=== PATIENT | female | born 1945 | race Caucasian/White ===

== ENCOUNTER 2022-08-09 13:46 | Outpatient (OUT) | payer MEDICARE, OTHER, SELFPAY ==
--- NOTE | 2022-08-09 10:00 | CA_ITS ---
Patient: PERCY SAMUELS Exam Date: 08/09/2022 : 1945 Gender:F Ordering : DEN HAAS Admission #: [id number] Family : DR AURY ORDONEZ . Order #: [id number] CLICK HERE TO VIEW EXAM ECHOCARDIOGRAM REPORT PROCEDURE: CA ECHO DOPPLER COMPLETE INDICATIONS: AV STENOSIS, S/P TAVR; 23 mm Yasmeen 3 (2019), H/O Atrial fibrillation COMPARISON: None. DESCRIPTION: COMPLETE ECHOCARDIOGRAM Real-time transthoracic echocardiography with 2D, M-mode, spectral and color flow Doppler performed. QUALITY: Lumason contrast was administered due to suboptimal imaging for left ventricular opacification to improve delineation of endocardial boarders. LEFT VENTRICLE: Normal chamber size. Normal left ventricular wall thickness. LV EF: Global left ventricular systolic function is hyperdynamic; visually estimated ejection fraction 65 to 70%. DIASTOLIC: Unable to assess diastolic function. ATRIAL SEPTUM: Inadequately seen. LEFT ATRIUM: Severe dilatation. RIGHT ATRIUM: Moderate dilatation. RIGHT VENTRICLE: Mild dilatation. Normal right ventricular systolic function. TRICUSPID VALVE: Normal mobility and thickness. No stenosis with trivial regurgitation. Unable to calculate right sided pressures due to lack of measurable regurgitation. MITRAL VALVE: Trivial mitral regurgitation. Severe posterior mitral annular calcification. AORTIC VALVE: Transcatheter aortic valve replacement appears well seated with abnormally high Doppler flows. (Mean 35 mmHg DVI 0.27) Trivial perivalvular insufficiency. AORTIC ROOT: Normal diameter and appearance. PULMONIC VALVE: Not well visualized. No stenosis. Trivial regurgitation. PERICARDIUM: No evidence of pericardial effusion. IVC: Collapses with inspirations. IVC is normal in size. CONCLUSION: 1. Global left ventricular systolic function is hyperdynamic; visually estimated ejection fraction is 65 to 70% 2. Biatrial enlargement 3. The right ventricle appears dilated with normal systolic function 4. Transcatheter aortic valve is poorly seen; Doppler interrogation reveals abnormally high velocities. Trivial perivalvular regurgitation. Adult Echocardiography Procedure Report Left Ventricle LVEDD (3.7 - 5.6 cm): 5.68 cm LVIVS thickness (0.6 - 1.2 cm): 0.90 cm LVOT Max Gradient: 3.91 mm[Hg], 3.91 mm[Hg] Peak Velocity (LVOT): 0.99 m/s, 0.99 m/s Left Atrium Mitral Valve MV E to A Ratio: 0.71 Right Ventricle RV Internal Diastolic Dimension: 4.18 cm Aorta Aortic Valve Peak Velocity(Antegrade Flow): 3.60 m/s, 3.62 m/s, 3.60 m/s, 3.62 m/s Peak Gradient(Antegrade Flow): 51.82 mm[Hg], 51.82 mm[Hg], 52.39 mm[Hg], 52.39 mm[Hg] Mean Velocity(Antegrade Flow): 2.82 m/s, 2.73 m/s Mean Gradient(Antegrade Flow): 34.82 mm[Hg], 32.86 mm[Hg] Velocity Time Integral: 91.71 cm, 93.78 cm Tricuspid Valve Pulmonic Valve Peak Gradient: 6.47 mm[Hg], 6.47 mm[Hg] Right Atrium Dictated by: Anne Pate M.D. on 08/10/2022 at 18:20 Approved by: Anne Pate M.D. on 08/10/2022 at 18:27
== END 2022-08-09 13:47 | disposition home or self-care (01) ==
LOC: CARD 13:46
PROVIDERS: PCP Family Medicine; Visit Provider Internal Medicine Cardiovascular Disease
DX: I08.0 Rheumatic disorders of both mitral and aortic valves (principal); R93.1 Abnormal findings on diagnostic imaging of heart and coronary circulation
CPT/HCPCS: 93306; C8929

== ENCOUNTER 2022-10-11 10:45 | Inpatient (IN) | payer MEDICARE, OTHER, SELFPAY ==
[2022-10-11] VITALS (32 sets, daily range): BP systolic 100–147; BP diastolic 50–85; PULSE 63–115; RESP 10–21; TEMP 36.9–37.3; O2SAT 83–98; BMI 47.8; BMI 45.8
--- NOTE | 2022-10-11 | CONS_ITS ---
CONSULTATION DATE: ??10/11/2022 REASON FOR CONSULTATION:?? Anemia. HISTORY OF PRESENT ILLNESS:? Patient is a 77-year-old female with multiple medical problems including atrial fibrillation on Xarelto daily, diabetes mellitus, hypertension, hypothyroidism, morbid obesity, history of aortic valve replacement, as well as arthritis and chronic back problems.? She presented to the ER today with increased shortness of breath and sinus congestion for the past week, as well as increased fatigue.? Workup in the emergency room revealed a hemoglobin of 5.3 with hematocrit of 15.9.? Platelet count was normal at 252,000.? She also has chronic renal insufficiency, but her BUN and creatinine were more elevated at 131 and 2.5.? Glucose was also elevated at 316.? Patient was admitted and she is being transfused.? She denies any change in bowel habits.? Does report several weeks ago was eating lots of blueberries and just noticed darker blueberries in her stool.? When she stopped eating the blueberries that resolved.? She denies any melena, hematochezia or bright red blood per rectum.? Has had no abdominal pain, no nausea or vomiting.? She denies any aspirin or nonsteroidal anti-inflammatory drug use.? Has been on no [id number] medications.? No recent steroid use.? She denies any history of ulcer disease or significant gastroesophageal reflux disease.? She has not had a previous EGD.? Does report a colonoscopy in the remote past, approximately 25 years ago.? FAMILY HISTORY:? She has no family history of GI malignancy or inflammatory bowel disease.? SOCIAL HISTORY:? Patient does drink occasional alcohol.? Denies any history of tobacco use.? ALLERGIES:? She has allergies to sulfa. MEDICATIONS:? Home medications include Pacerone, Elavil, atorvastatin, carvedilol, Lasix, Glucotrol, levothyroxine, lisinopril, metformin, multivitamin, potassium chloride, sertraline, spironolactone, as well as insulin. PAST SURGICAL HISTORY:? She had an aortic valve replacement, ankle surgery, knee replacement surgery, as well as previous back surgery. REVIEW OF SYSTEMS:? Ten system review of systems is negative for recent weight loss or weight gain.? She does report increased fatigue, shortness of breath.? No headaches, seizures or tremors.? No earache or tinnitus.? No sinus congestion.? No sore throat or hoarseness.? No chest pain, palpitations or syncope.? No chronic cough.? She has had shortness of breath.? No hemoptysis.? No abdominal pain, nausea or vomiting. ?No diarrhea, constipation, decreased caliber of the stool.? No melena, hematochezia or bright red blood per rectum.? No dysuria, frequency, urgency or hematuria.? No headaches, seizures or tremors.? No easy bruising or bleeding.? No heat or cold intolerance.? No polydipsia, polyphagia or polyuria. PHYSICAL EXAM:? VITAL SIGNS:? Patient?s BMI is 45.8.? Blood pressure is 135/85.? Pulse is 82 and regular.? Respiratory rate is 18.? She is afebrile.? O2 saturation is 92% on room air. GENERAL:? In general, she is an obese female, currently in no acute distress.? Resting comfortably in her bed. HEENT:? Normocephalic, atraumatic.? Sclerae anicteric.? Conjunctiva are pale.? Oral mucosa is moist, without lesions. NECK:? Supple.? LUNGS:? Clear bilaterally.??? CARDIAC EXAM:? Reveals an ejection murmur. ABDOMEN:? Obese, soft.? It is non-tender, non-distended.? There are no masses, hepatosplenomegaly or hernias.? SKIN:? Warm and dry without lesions, rashes or ulcers. NEURO EXAM:? Non-focal.? Non-lateralizing.? EXTREMITIES:? Reveal bilateral edema, which the patient reports is chronic. ASSESSMENT:? A 77-year-old female with multiple medical problems, now with anemia.? No obvious source of GI bleeding. PLAN:? I do recommend endoscopy during her stay for further evaluation, while the Xarelto is being held.? Certainly, if her hemoglobin comes up appropriate tomorrow, we can begin bowel prep tomorrow and plan on likely EGD and colonoscopy under anesthesia on Sunday.? This was all explained to the patient in detail.? Informed consent was obtained. [facility]
--- NOTE | 2022-10-11 10:48 | ED_ITS ---
HPI - General Adult General Chief complaint: Shortness of Breath/Dyspnea Stated complaint: SHORTNESS OF BREATH Time Seen by Provider: 10/11/22 10:48 History of Present Illness HPI narrative: Patient brought into the emergency department complaining of shortness of breath. Family states patient has been sick a week ago with sinus congestion and a nonproductive cough. She was noted to be increasingly weak during the weekend and this morning she developed chest tightness and felt very short of breath prior to coming to the emergency department. She called EMS. She denies any fever, or chills. She denies any vomiting, or diarrhea. She denies any abdominal pain. Patient was on and request for atrial fibrillation. She had it changed to xarelto last month. Patient states she was eating a lot of blueberries 10 days ago and she noted her stool to be darker. She denies any hematochezia. She states her stool is now normal color. Related Data Home Medications Medication Instructions Recorded Confirmed amitriptyline 25 mg tablet 25 mg PO QPM 10/11/22 10/11/22 aspirin 81 mg chewable tablet 81 mg PO DAILY 10/11/22 10/11/22 (Joel Chewable Low Dose Aspirin) atorvastatin 40 mg tablet 40 mg PO QPM 10/11/22 10/11/22 levothyroxine 125 mcg tablet 120 mcg PO DAILY 10/11/22 10/11/22 multivitamin 1 tab PO DAILY 10/11/22 10/11/22 potassium chloride 10 mEq 10 meq PO DAILY 10/11/22 10/11/22 tablet,extended release(part/cryst) (Klor-Con M) rivaroxaban 20 mg tablet (Xarelto) 20 mg PO DAILY 10/11/22 10/11/22 sertraline 50 mg tablet 50 mg PO DAILY 10/11/22 10/11/22 spironolactone 25 mg tablet 25 mg PO DAILY 10/11/22 10/11/22 Allergies Allergy/AdvReac Type Severity Reaction Status Date / Time Sulfa (Sulfonamide Allergy Intermediate Rash Verified 10/11/22 10:50 Antibiotics) Review of Systems ROS Status of ROS 10 or more systems reviewed and unremarkable except as noted in history and below [facility] Medical History (Updated 10/11/22 @ 14:01 by Bess Gallegos MD) Surgical History (Updated 10/11/22 @ 14:01 by Chelle Bee) Exam Narrative Exam Narrative: Nurses notes and vital signs reviewed and patient is not hypoxic. General: Nontoxic, Chronically ill, and in no apparent distress. Skin: Warm, dry, mild pallor noted. No Rash Head: Normocephalic, atraumatic. Neck: Supple, non-tender. Eye: Pupils are equal, round and EOMI. No scleral icterus. Ears, Nose, Mouth, and Throat: TM clear, no posterior oropharynx erythema or nasal mucosal hypertrophy, uvula is mid-line Oral mucosa is moist Cardiovascular: Regular Rate and Rhythm without murmur, gallop or rub. Respiratory: No accessory muscle use or respiratory distress. Lungs are clear to auscultation, no wheezing, rales or rhonchi Chest Wall: no tenderness Back: No midline thoracic or lumbar vertebral tenderness. No CVA tenderness Musculoskeletal: left leg walking boot, normal ROM, no calf or popliteal tenderness, no lower extremity edema/swelling GI: obese, Abdomen is soft, non-distended. Normal bowel sounds. No tenderness to palpation. No rebound, guarding, or rigidity noted. Hemoccult- brown stool, hemoccult positive Neurological: A&O x4. No cranial nerve dysfunction observed. Moves all extremities. Psychiatric: Cooperative and interactive. Normal mood and affect. Constitutional Vital Signs, click to edit/add: Last Vital Signs Temp 98.5 F 10/11/22 13:46 Pulse 86 10/11/22 13:46 Resp 18 10/11/22 13:46 BP 102/53 10/11/22 13:46 Pulse Ox 98 10/11/22 13:20 O2 Del Method Room Air 10/11/22 10:58 Course Vital Signs Vital signs: Vital Signs Pulse Rate 83 10/11/22 10:48 Respiratory Rate 17 10/11/22 10:48 Pulse Oximetry 94 L 10/11/22 10:48 Temperature 98.5 F 10/11/22 13:46 Pulse Rate 86 10/11/22 13:46 Respiratory Rate 18 10/11/22 13:46 Blood Pressure 102/53 10/11/22 13:46 Pulse Oximetry 98 10/11/22 13:20 Oxygen Delivery Method Room Air 10/11/22 10:58 Medical Decision Making MDM Narrative Medical decision making narrative: EKG shows a right bundle branch block. There are no acute ischemic changes. That study showed the patient to be anemic hemoglobin 5. Patient's previous hemoglobin in April of this year was normal. 2 units of packed red blood cells were ordered. Patient has consented to transfusion. Patient was also found to have a urinary tract infection given a gram of Rocephin IV. Patient did not have this morning's dose of xarelto. All results were discussed with patient and daughter. The patient was discussed with Dr. Deleon for admission. Dr. Deleon asked if surgery was contacted. case was discussed w dr Hoover. This note was created with the assistance of a speech recognition program. Although the intention is to generate documents that actually reflects the content of the visit, no guarantees can be provided that every mistake has been identified and corrected by editing. Medical Records Medical records reviewed: Yes I reviewed the patient's medical records Medical records narrative: Patient's prior records were reviewed and found part of the medical decision making. Lab Data Lab results reviewed: Yes I reviewed the patient's lab results Labs: Lab Results 10/11/22 10/11/22 10/11/22 Range/Units 10:50 10:54 11:41 WBC 13.1 H (4.0-11.0) 10^3/uL RBC 1.68 L (4.20-5.40) 10^6/uL Hgb 5.3 L* (12.0-16.0) g/dL Hct 15.9 L* (36.0-48.0) % MCV 94.6 (81.0-99.0) fL MCH 31.5 (26.7-34.0) pg MCHC 33.3 (29.9-35.2) g/dL RDW 14.6 (11.0-15.0) % Plt Count 252 (150-450) 10^3/uL MPV 10.1 (9.5-13.5) fL Neut % (Auto) 83.4 H (43.0-75.0) % Lymph % (Auto) 11.2 L (20.5-60.0) % [place] % (Auto) 4.1 (1.7-12.0) % Eos % (Auto) 0.1 L (0.9-7.0) % Baso % (Auto) 0.2 (0.2-2.0) % Neut # (Auto) 10.9 H (1.4-6.5) 10^3/uL Lymph # (Auto) 1.5 (1.2-3.8) 10^3/uL [place] # (Auto) 0.5 (0.3-0.8) 10^3/uL Eos # (Auto) 0.0 (0.0-0.7) 10^3/uL Baso # (Auto) 0.0 (0.0-0.1) 10^3/uL Abs Immat Gran (auto) 0.13 H (0.00-0.03) 10^3/uL Imm/Tot Granulo (auto) 1.0 H (0.0-0.5) % Sodium 132 L (136-145) mmol/L Potassium 4.4 (3.5-5.1) mmol/L Chloride 96 L (98-107) mmol/L Carbon Dioxide 25.3 (21.0-32.0) mmol/L Anion Gap 15.1 BUN 131.0 H* (7.0-18.0) mg/dL Creatinine 2.51 H (0.55-1.02) mg/dL Est GFR ( Amer) 23 L (>=60) Est GFR (Non-Af Amer) 19 L (>=60) BUN/Creatinine Ratio 52.2 Glucose 316 H (74-106) mg/dL Calcium 9.4 (8.5-10.1) mg/dL Total Bilirubin 0.4 (0.2-1.0) mg/dL AST 9 L (15-37) U/L ALT 17 (14-59) U/L Alkaline Phosphatase 43 L (46-116) U/L Troponin I High Sens 44.1 (4.0-51.3) pg/mL NT-Pro-B Natriuret Pep 683.0 (<=1800.0) pg/mL Total Protein 6.8 (6.4-8.2) g/dL Albumin 3.2 L (3.4-5.0) g/dL Globulin 3.6 g/dL Albumin/Globulin Ratio 0.9 Urine Color (YELLOW) Urine Clarity (CLEAR) Urine pH (5.0-9.0) Ur Specific [place] (1.005-1.025) Urine Protein (NEG/TRACE) mg/dL Urine Glucose (UA) (NEGATIVE) mg/dL Urine Ketones (NEGATIVE) mg/dL Urine Occult Blood (NEGATIVE) Urine Nitrite (NEGATIVE) Urine Bilirubin (NEGATIVE) Urine Urobilinogen (0.2-1.0) EU/dL Ur Leukocyte Esterase (NEGATIVE) Urine RBC (0-2) #/HPF Urine WBC (NONE SEEN) #/HPF Ur Squamous Epith Cells (NONE/RARE) #/LPF Urine Crystals (None Seen) #/HPF Urine Bacteria (NONE SEEN) #/HPF Urine Casts (NONE SEEN) #/LPF Urine Mucus (NONE SEEN) Ur Culture Indicated? Stool Occult Blood SARS-CoV-2 (PCR) Negative (NEGATIVE) Blood Type A Positive Antibody Screen Negative Crossmatch See Detail 10/11/22 Range/Units 12:05 WBC (4.0-11.0) 10^3/uL RBC (4.20-5.40) 10^6/uL Hgb (12.0-16.0) g/dL Hct (36.0-48.0) % MCV (81.0-99.0) fL MCH (26.7-34.0) pg MCHC (29.9-35.2) g/dL RDW (11.0-15.0) % Plt Count (150-450) 10^3/uL MPV (9.5-13.5) fL Neut % (Auto) (43.0-75.0) % Lymph % (Auto) (20.5-60.0) % [place] % (Auto) (1.7-12.0) % Eos % (Auto) (0.9-7.0) % Baso % (Auto) (0.2-2.0) % Neut # (Auto) (1.4-6.5) 10^3/uL Lymph # (Auto) (1.2-3.8) 10^3/uL [place] # (Auto) (0.3-0.8) 10^3/uL Eos # (Auto) (0.0-0.7) 10^3/uL Baso # (Auto) (0.0-0.1) 10^3/uL Abs Immat Gran (auto) (0.00-0.03) 10^3/uL Imm/Tot Granulo (auto) (0.0-0.5) % Sodium (136-145) mmol/L Potassium (3.5-5.1) mmol/L Chloride (98-107) mmol/L Carbon Dioxide (21.0-32.0) mmol/L Anion Gap BUN (7.0-18.0) mg/dL Creatinine (0.55-1.02) mg/dL Est GFR ( Amer) (>=60) Est GFR (Non-Af Amer) (>=60) BUN/Creatinine Ratio Glucose (74-106) mg/dL Calcium (8.5-10.1) mg/dL Total Bilirubin (0.2-1.0) mg/dL AST (15-37) U/L ALT (14-59) U/L Alkaline Phosphatase (46-116) U/L Troponin I High Sens (4.0-51.3) pg/mL NT-Pro-B Natriuret Pep (<=1800.0) pg/mL Total Protein (6.4-8.2) g/dL Albumin (3.4-5.0) g/dL Globulin g/dL Albumin/Globulin Ratio Urine Color Lt. yellow (YELLOW) Urine Clarity Clear (CLEAR) Urine pH 5.5 (5.0-9.0) Ur Specific [place] <=1.005 A (1.005-1.025) Urine Protein Negative (NEG/TRACE) mg/dL Urine Glucose (UA) Negative (NEGATIVE) mg/dL Urine Ketones Negative (NEGATIVE) mg/dL Urine Occult Blood Negative (NEGATIVE) Urine Nitrite Positive A (NEGATIVE) Urine Bilirubin Negative (NEGATIVE) Urine Urobilinogen 0.2 (0.2-1.0) EU/dL Ur Leukocyte Esterase Trace A (NEGATIVE) Urine RBC None seen (0-2) #/HPF Urine WBC 2-5 A (NONE SEEN) #/HPF Ur Squamous Epith Cells Rare (NONE/RARE) #/LPF Urine Crystals None seen (None Seen) #/HPF Urine Bacteria Small A (NONE SEEN) #/HPF Urine Casts None seen (NONE SEEN) #/LPF Urine Mucus None seen (NONE SEEN) Ur Culture Indicated? Yes Stool Occult Blood Positive A SARS-CoV-2 (PCR) (NEGATIVE) Blood Type Antibody Screen Crossmatch ECG Data Attestation: I personally reviewed and interpreted this ECG as follows: Discharge Plan Discharge Chief Complaint: Shortness of Breath/Dyspnea Clinical Impression: Acute dyspnea, Anemia, Acute UTI, GI bleed Patient Disposition: Admitted As Inpatient Time of Disposition Decision: 12:37 Condition: Good
--- NOTE | 2022-10-11 10:58 | PC.NURSE ---
will continue to monitor
--- NOTE | 2022-10-11 11:06 | ECG_ITS ---
[facility] Test Date: 2022-10-11 Pat Name: PERCY SAMUELS Department: Room: - Gender: Female Director Of Enterprise Strategy: : 1945 Requested By: AURY ORDONEZ Order Number: [id number] Reading MD: ALY SALEH Measurements Intervals [place] Rate: 81 P: 90 SC: 232 QRS: -74 QRSD: 140 T: 77 QT: 442 QTc: 480 Interpretive Statements 1100 Sinus rhythm 2231 First degree AV block 2450 Right bundle branch block 3634 Inferior myocardial infarction, age undetermined 5234 Left ventricular hypertrophy with repolarization abnormality 9150 abnormal ECG No previous ECG available for comparison Electronically Signed On 10-12-2022 7:03:40 EDT by ALY SALEH
--- NOTE | 2022-10-11 11:06 | XR_ITS ---
The [address] [address] Patient Name: PERCY SAMUELS MRN: [id number] date: 1945 Sex: F Assigned Patient Location: ER Current Patient Location: ER Accession/Order Number: [id number] Exam Date: 10/11/2022 11:36 Report Date: 10/11/2022 11:55 At the request of: SANJUANA JONES Procedure: XR chest 1V EXAM: XR chest 1V HISTORY: Weakness, shortness of breath and pressure. COMPARISON: Chest radiograph dated 03/19/2021. TECHNIQUE: AP erect portable chest radiograph performed. FINDINGS: The trachea is midline. There is stable mild enlargement of the cardiac silhouette. There is stable atheromatous calcification at the aortic arch. There is a stable aortic valve replacement (TAVR). There are low lung volumes. There is no consolidation or infiltrate. There is no pleural effusion or pulmonary vascular congestion. There is no pneumothorax or acute osseous abnormality. 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 XR/XR chest 1V IMPRESSION: There is no acute cardiopulmonary process. Electronically authenticated by: ROSA HAQUE Date: 10/11/2022 11:55
[2022-10-11 11:16] LABS: Basophils Percent Auto 0.2 % (0.2-2.0); Eosinophils Percent Auto 0.1 % (0.9-7.0); Immature Granulocytes Abs Auto 0.13 10^3/uL (0.00-0.03); Lymphocytes Absolute Auto 1.5 10^3/uL (1.2-3.8); Lymphocytes Percent Auto 11.2 % (20.5-60.0); Mean Corpuscular HGB Conc 33.3 g/dL (29.9-35.2); Mean Corpuscular Hemoglobin 31.5 pg (26.7-34.0); Mean Corpuscular Volume 94.6 fL (81.0-99.0); Mean Platelet Volume 10.1 fL (9.5-13.5); Monocytes Absolute Auto 0.5 10^3/uL (0.3-0.8); Monocytes Percent Auto 4.1 % (1.7-12.0); Neutrophils Absolute Auto 10.9 10^3/uL (1.4-6.5); Neutrophils Percent Auto 83.4 % (43.0-75.0); Platelet Count 252 10^3/uL (150-450); Red Blood Count 1.68 10^6/uL (4.20-5.40); Red Cell Distribution Width 14.6 % (11.0-15.0); White Blood Count 13.1 10^3/uL (4.0-11.0)
[2022-10-11 11:18] LABS: Hematocrit 15.9 % (36.0-48.0); Hemoglobin 5.3 g/dL (12.0-16.0)
[2022-10-11 11:34] LABS: Alanine Aminotransferase 17 U/L (14-59); Albumin Globulin Ratio 0.9; Albumin Level 3.2 g/dL (3.4-5.0); Alkaline Phosphatase 43 U/L (46-116); Anion Gap 15.1; Aspartate Amino Transferase 9 U/L (15-37); BUN Creatinine Ratio 52.2; Bilirubin Total 0.4 mg/dL (0.2-1.0); Calcium 9.4 mg/dL (8.5-10.1); Carbon Dioxide 25.3 mmol/L (21.0-32.0); Chloride 96 mmol/L (98-107); Estimated GFR (African America 23 (>=60); Estimated GFR (Non-African Ame 19 (>=60); Globulin 3.6 g/dL; Glucose 316 mg/dL (74-106); Potassium 4.4 mmol/L (3.5-5.1); Sodium 132 mmol/L (136-145); Total Protein 6.8 g/dL (6.4-8.2); Troponin I High Sensitivity 44.1 pg/mL (4.0-51.3)
[2022-10-11 11:55] LABS: SARS-CoV-2 Ag NEGATIVE (NEGATIVE)
[2022-10-11 12:24] LABS: Occult Blood Positive
[2022-10-11 12:27] LABS: Bilirubin Urine NEGATIVE (NEGATIVE); Blood Urine NEGATIVE (NEGATIVE); Clarity Urine CLEAR (CLEAR); Color Urine LT. YELLOW (YELLOW); Glucose Urine UA NEGATIVE (NEGATIVE); Ketones Urine NEGATIVE (NEGATIVE); Leukocyte Esterase Urine TRACE (NEGATIVE); Nitrite Urine POSITIVE (NEGATIVE); Protein Urine NEGATIVE (NEG/TRACE); Specific Gravity Urine <=1.005 (1.005-1.025); Urobilinogen Urine 0.2 EU/dL (0.2-1.0); pH Urine 5.5 (5.0-9.0)
[2022-10-11 12:29] LABS: Urine Microscopic Indicated YES
[2022-10-11 12:32] LABS: Bacteria Urine SMALL #/HPF (NONE SEEN); Cast Seen? NONE SEEN #/LPF (NONE SEEN); Crystals Seen? None Seen #/HPF (None Seen); Mucus Urine NONE SEEN (NONE SEEN); RBC Urine NONE SEEN #/HPF (0-2); Squamous Epithelial Cell Urine RARE #/LPF (NONE/RARE); Urine Culture Indicated YES
[2022-10-11] MEDS: CEFTRIAXONE 1,000 MG in 0.9 % SODIUM CHLORIDE 50 ML 100 MG IV (13:03)
[2022-10-11 15:25] LABS: SARS-CoV-2 NAA NOT DETECTED (NOT DETECTE)
--- NOTE | 2022-10-11 18:11 | PM.GSCN ---
History of Present Illness Consult details Consult date: 10/11/22 Requesting physician: Gumaro Deleon Narrative: patient seen/examined/chart reviewed; consult dictated; 77 yo female with multiple medical problems, on Xarelto, with profound anemia, no obvious GI bleeding; positive fecal occult blood; currently being transfused, plan likely bowel prep tomorrow if stable, EGD and colonoscopy with anesthesia Sunday. [facility] Medical History (Updated 10/11/22 @ 14:01 by Bess Gallegos MD) Surgical History (Updated 10/11/22 @ 14:01 by Chelle Bee) Family History (Updated 10/11/22 @ 14:02 by Chelle Bee) Father Family history of cancer Mother Family history of cancer Family history of hypertension Social History (Updated 10/11/22 @ 14:03 by Chelle Bee) Within the past year, how often did you have a drink containing alcohol: monthly or less Within the past year, how many standard drinks containing alcohol did you have on a typical day: 1 or 2 Within the past year, how often did you have six or more drinks on one occasion: never Total score: 0 Score interpretation: A score less than 3 is consistent with normal alcohol consumption. Smoking status: Never smoker Non-prescribed substance use: denies use Previous occupational history: retired Highest level of school completed/degree received: some college, no degree Are you now , , , , never or living with a partner: In a typical week, how many times do you talk on the telephone with family, friends, or neighbors: 3 or more times per week How often do you get together with friends or relatives: 3 or more times per week How often do you attend nondenominational or confucianism services: 4 or more times per year Do you belong to any clubs or organizations such as nondenominational groups unions, fraternal or athletic groups, or school groups: no Total score: 2 Score interpretation: A score of greater than or equal to 2 indicates the lowest level of social isolation. Little interest or pleasure in doing things: not at all Feeling down, depressed, or hopeless: not at all Feel stressed/tense/nervous/anxious/difficulty sleeping: not at all Gender Identity: female Meds Home Medications and Allergies Home Medications Medication Instructions Recorded Confirmed Type amiodarone 100 mg tablet 100 mg PO DAILY 10/11/22 10/11/22 History amitriptyline 25 mg tablet 25 mg PO QPM 10/11/22 10/11/22 History aspirin 81 mg chewable tablet 81 mg PO DAILY 10/11/22 10/11/22 History (Joel Chewable Low Dose Aspirin) atorvastatin 40 mg tablet 40 mg PO QPM 10/11/22 10/11/22 History carvedilol 3.125 mg tablet 3.125 mg PO BID 10/11/22 10/11/22 History cetirizine 10 mg tablet (24Hour 10 mg PO DAILY PRN allergy symptoms 10/11/22 10/11/22 History Allergy) furosemide 40 mg tablet 40 mg PO BID 10/11/22 10/11/22 History glipizide 5 mg tablet 5 mg PO BID 10/11/22 10/11/22 History levothyroxine 150 mcg tablet 150 mcg PO DAILY 10/11/22 10/11/22 History lisinopril 10 mg tablet 10 mg PO DAILY 10/11/22 10/11/22 History metformin 500 mg tablet,extended 500 mg PO BID 10/11/22 10/11/22 History release 24 hr multivitamin 1 tab PO DAILY 10/11/22 10/11/22 History potassium chloride 10 mEq 10 meq PO DAILY 10/11/22 10/11/22 History tablet,extended release(part/cryst) (Klor-Con M) rivaroxaban 20 mg tablet (Xarelto) 20 mg PO DAILY 10/11/22 10/11/22 History sertraline 50 mg tablet 50 mg PO DAILY 10/11/22 10/11/22 History spironolactone 25 mg tablet 25 mg PO DAILY 10/11/22 10/11/22 History Allergies Allergy/AdvReac Type Severity Reaction Status Date / Time Sulfa (Sulfonamide Allergy Intermediate Rash Verified 10/11/22 10:50 Antibiotics) Exam Constitutional Vital Signs, click to edit/add: Last Vital Signs Temp 98.5 F 10/11/22 17:18 Pulse 82 10/11/22 17:44 Resp 18 10/11/22 17:18 BP 135/85 10/11/22 17:18 Pulse Ox 92 L 10/11/22 17:18 O2 Del Method Room Air 10/11/22 17:18 Results Labs Labs: Abnormal lab results 10/11/22 10/11/22 10/11/22 Range/Units 10:50 11:41 12:05 WBC 13.1 H (4.0-11.0) 10^3/uL RBC 1.68 L (4.20-5.40) 10^6/uL Hgb 5.3 L* (12.0-16.0) g/dL Hct 15.9 L* (36.0-48.0) % Neut % (Auto) 83.4 H (43.0-75.0) % Lymph % (Auto) 11.2 L (20.5-60.0) % Eos % (Auto) 0.1 L (0.9-7.0) % Neut # (Auto) 10.9 H (1.4-6.5) 10^3/uL Abs Immat Gran (auto) 0.13 H (0.00-0.03) 10^3/uL Imm/Tot Granulo (auto) 1.0 H (0.0-0.5) % Sodium 132 L (136-145) mmol/L Chloride 96 L (98-107) mmol/L BUN 131.0 H* (7.0-18.0) mg/dL Creatinine 2.51 H (0.55-1.02) mg/dL Est GFR ( Amer) 23 L (>=60) Est GFR (Non-Af Amer) 19 L (>=60) Glucose 316 H (74-106) mg/dL AST 9 L (15-37) U/L Alkaline Phosphatase 43 L (46-116) U/L Albumin 3.2 L (3.4-5.0) g/dL Ur Specific [place] <=1.005 A (1.005-1.025) Urine Nitrite Positive A (NEGATIVE) Ur Leukocyte Esterase Trace A (NEGATIVE) Urine WBC 2-5 A (NONE SEEN) #/HPF Urine Bacteria Small A (NONE SEEN) #/HPF Stool Occult Blood Positive A Crossmatch See Detail Diabetes panel 10/11/22 Range/Units 10:50 Sodium 132 L (136-145) mmol/L Potassium 4.4 (3.5-5.1) mmol/L Chloride 96 L (98-107) mmol/L Carbon Dioxide 25.3 (21.0-32.0) mmol/L BUN 131.0 H* (7.0-18.0) mg/dL Creatinine 2.51 H (0.55-1.02) mg/dL Glucose 316 H (74-106) mg/dL Calcium 9.4 (8.5-10.1) mg/dL AST 9 L (15-37) U/L ALT 17 (14-59) U/L Alkaline Phosphatase 43 L (46-116) U/L Total Protein 6.8 (6.4-8.2) g/dL Albumin 3.2 L (3.4-5.0) g/dL Calcium panel 10/11/22 Range/Units 10:50 Calcium 9.4 (8.5-10.1) mg/dL Albumin 3.2 L (3.4-5.0) g/dL Pituitary panel 10/11/22 Range/Units 10:50 Sodium 132 L (136-145) mmol/L Potassium 4.4 (3.5-5.1) mmol/L Chloride 96 L (98-107) mmol/L Carbon Dioxide 25.3 (21.0-32.0) mmol/L BUN 131.0 H* (7.0-18.0) mg/dL Creatinine 2.51 H (0.55-1.02) mg/dL Glucose 316 H (74-106) mg/dL Calcium 9.4 (8.5-10.1) mg/dL Adrenal panel 10/11/22 Range/Units 10:50 Sodium 132 L (136-145) mmol/L Potassium 4.4 (3.5-5.1) mmol/L Chloride 96 L (98-107) mmol/L Carbon Dioxide 25.3 (21.0-32.0) mmol/L BUN 131.0 H* (7.0-18.0) mg/dL Creatinine 2.51 H (0.55-1.02) mg/dL Glucose 316 H (74-106) mg/dL Calcium 9.4 (8.5-10.1) mg/dL Total Bilirubin 0.4 (0.2-1.0) mg/dL AST 9 L (15-37) U/L ALT 17 (14-59) U/L Alkaline Phosphatase 43 L (46-116) U/L Total Protein 6.8 (6.4-8.2) g/dL Albumin 3.2 L (3.4-5.0) g/dL All other labs normal.
[2022-10-11 19:13] LABS: Basophils Percent Auto 0.2 % (0.2-2.0); Eosinophils Percent Auto 0.1 % (0.9-7.0); Immature Granulocytes Abs Auto 0.13 10^3/uL (0.00-0.03); Lymphocytes Absolute Auto 1.6 10^3/uL (1.2-3.8); Lymphocytes Percent Auto 12.9 % (20.5-60.0); Mean Corpuscular HGB Conc 33.2 g/dL (29.9-35.2); Mean Corpuscular Hemoglobin 29.8 pg (26.7-34.0); Mean Corpuscular Volume 89.8 fL (81.0-99.0); Mean Platelet Volume 9.9 fL (9.5-13.5); Monocytes Absolute Auto 0.9 10^3/uL (0.3-0.8); Monocytes Percent Auto 6.7 % (1.7-12.0); Neutrophils Percent Auto 79.1 % (43.0-75.0); Platelet Count 204 10^3/uL (150-450); Red Blood Count 2.35 10^6/uL (4.20-5.40); Red Cell Distribution Width 14.4 % (11.0-15.0); White Blood Count 12.6 10^3/uL (4.0-11.0)
[2022-10-11 19:27] LABS: Hematocrit 21.1 % (36.0-48.0)
[2022-10-11 19:59] LABS: Glucometer 329 mg/dL (74-106)
[2022-10-11] MEDS: METFORMIN HCL 500 MG TAB.ER.24H PO (22:25)
[2022-10-11] MEDS: FUROSEMIDE 40 MG TABLET PO (22:25)
[2022-10-11] MEDS: GLIPIZIDE 5 MG TABLET PO (22:25)
[2022-10-11 22:26] LABS: Glucometer 315 mg/dL (74-106)
[2022-10-11] MEDS: PANTOPRAZOLE SODIUM 40 MG VIAL IV (22:26)
[2022-10-11] MEDS: CARVEDILOL 3.125 MG TABLET PO (22:26)
[2022-10-11] MEDS: INSULIN ASPART 300 UNIT/3 ML PEN SUBQ (22:26)
[2022-10-11] MEDS: ATORVASTATIN CALCIUM 40 MG TABLET PO (22:26)
[2022-10-11] MEDS: AMITRIPTYLINE HCL 25 MG TABLET PO (22:26)
[2022-10-12] VITALS (17 sets, daily range): BP systolic 106–143; BP diastolic 47–68; PULSE 55–73; RESP 16–18; TEMP 36.6–36.8; O2SAT 92–96
--- NOTE | 2022-10-12 00:49 | PC.NURSE ---
pt. had a very small bm of 2 little pebble size stool
[2022-10-12 01:28] LABS: Hematocrit 20.1 % (36.0-48.0); Hemoglobin 6.9 g/dL (12.0-16.0)
[2022-10-12 05:58] LABS: Basophils Absolute Auto 0.1 10^3/uL (0.0-0.1); Basophils Percent Auto 0.4 % (0.2-2.0); Eosinophils Absolute Auto 0.1 10^3/uL (0.0-0.7); Eosinophils Percent Auto 0.7 % (0.9-7.0); Immature Granulocytes Abs Auto 0.11 10^3/uL (0.00-0.03); Lymphocytes Absolute Auto 1.6 10^3/uL (1.2-3.8); Lymphocytes Percent Auto 14.6 % (20.5-60.0); Mean Corpuscular HGB Conc 34.3 g/dL (29.9-35.2); Mean Corpuscular Hemoglobin 32.4 pg (26.7-34.0); Mean Corpuscular Volume 94.3 fL (81.0-99.0); Mean Platelet Volume 9.8 fL (9.5-13.5); Monocytes Absolute Auto 0.8 10^3/uL (0.3-0.8); Neutrophils Absolute Auto 8.5 10^3/uL (1.4-6.5); Neutrophils Percent Auto 76.3 % (43.0-75.0); Platelet Count 213 10^3/uL (150-450); White Blood Count 11.2 10^3/uL (4.0-11.0)
[2022-10-12 06:46] LABS: Anion Gap 11.2; BUN Creatinine Ratio 52.9; Carbon Dioxide 27.7 mmol/L (21.0-32.0); Chloride 100 mmol/L (98-107); Estimated GFR (African America 29 (>=60); Estimated GFR (Non-African Ame 24 (>=60); Glucose 170 mg/dL (74-106); Potassium 3.9 mmol/L (3.5-5.1); Sodium 135 mmol/L (136-145)
[2022-10-12 06:55] LABS: Hematocrit 19.8 % (36.0-48.0); Hemoglobin 6.8 g/dL (12.0-16.0)
[2022-10-12] MEDS: SERTRALINE HCL 50 MG TABLET PO (09:18)
[2022-10-12] MEDS: CARVEDILOL 3.125 MG TABLET PO ×2 (09:18→21:20)
[2022-10-12] MEDS: METFORMIN HCL 500 MG TAB.ER.24H PO ×2 (09:18→17:48)
[2022-10-12] MEDS: POTASSIUM CHLORIDE 10 MEQ ER TABLET PO (09:19)
[2022-10-12] MEDS: FUROSEMIDE 40 MG TABLET PO ×2 (09:19→21:21)
[2022-10-12] MEDS: MULTIVITAMIN TABLET 1 TAB PO (09:19)
[2022-10-12] MEDS: AMIODARONE HCL 200 MG TABLET 100 MG PO (09:19)
[2022-10-12] MEDS: INSULIN ASPART 300 UNIT/3 ML PEN SUBQ ×3 (09:19→17:48)
[2022-10-12] MEDS: LISINOPRIL 10 MG TABLET PO (09:19)
[2022-10-12] MEDS: LEVOTHYROXINE SODIUM 75 MCG TABLET 150 MCG PO (09:19)
[2022-10-12] MEDS: GLIPIZIDE 5 MG TABLET PO ×2 (09:19→17:48)
[2022-10-12] MEDS: SPIRONOLACTONE 25 MG TABLET PO (09:19)
[2022-10-12] MEDS: PANTOPRAZOLE SODIUM 40 MG VIAL IV ×2 (09:20→21:20)
[2022-10-12] MEDS: CEFTRIAXONE 1,000 MG in 0.9 % SODIUM CHLORIDE 50 ML 100 MG IV (10:00)
--- NOTE | 2022-10-12 10:22 | CM.NOTE ---
Rounds made with Dr. Deleon, no discharge today. Pt will start bowel prep for EGD and colonoscopy tomorrow.
[2022-10-12 10:56] LABS: Basophils Absolute Auto 0.1 10^3/uL (0.0-0.1); Basophils Percent Auto 0.4 % (0.2-2.0); Eosinophils Absolute Auto 0.1 10^3/uL (0.0-0.7); Hematocrit 25.7 % (36.0-48.0); Hemoglobin 8.5 g/dL (12.0-16.0); Immature Granulocytes Abs Auto 0.17 10^3/uL (0.00-0.03); Immature Granulocytes Pct Auto 1.4 % (0.0-0.5); Lymphocytes Absolute Auto 1.3 10^3/uL (1.2-3.8); Lymphocytes Percent Auto 10.9 % (20.5-60.0); Mean Corpuscular HGB Conc 33.1 g/dL (29.9-35.2); Mean Corpuscular Hemoglobin 29.9 pg (26.7-34.0); Mean Corpuscular Volume 90.5 fL (81.0-99.0); Mean Platelet Volume 9.8 fL (9.5-13.5); Monocytes Absolute Auto 0.6 10^3/uL (0.3-0.8); Monocytes Percent Auto 5.2 % (1.7-12.0); Neutrophils Absolute Auto 9.9 10^3/uL (1.4-6.5); Neutrophils Percent Auto 81.1 % (43.0-75.0); Platelet Count 231 10^3/uL (150-450); Red Blood Count 2.84 10^6/uL (4.20-5.40); Red Cell Distribution Width 14.7 % (11.0-15.0); White Blood Count 12.2 10^3/uL (4.0-11.0)
[2022-10-12 11:08] LABS: Glucometer 324 mg/dL (74-106)
--- NOTE | 2022-10-12 11:08 | P.HP_ITS ---
H&P: HPI History of Present Illness Chief complaint: SOB, weakness Narrative: 77 y/o female to ER with SOB and weakness. Recent URI symptoms for past week but resolved. Developed SOB with exertion and fatigue. Hard to stay active due to SOB. Developed chest tightness and to ER. Labs show hgb 5.3 and stool p ositive for occult blood. Over 10 years since last endoscopy. History of afib and prior Eliquis but changed to Xarelto about 1 month ago. Noted dark stool few weeks ago but attributed this to eating a lot of blueberries and nhas since improved. Admitted for treatment. Given 2 units PRBC and general surgery consulted. Feels better this am and less SOB. Review of Systems ROS Constitutional Denies: fever, chills or night sweats Cardiovascular Reports: chest pain; Denies: palpitations, edema or lightheadedness Respiratory Reports: shortness of breath; Denies: cough or wheezing Gastrointestinal Denies: abdominal pain, nausea, vomiting or diarrhea Genitourinary Denies: painful urination [facility] Medical History (Updated 10/12/22 @ 11:08 by Gumaro Deleon MD) Surgical History (Updated 10/11/22 @ 14:01 by Chelle Bee) Family History (Updated 10/11/22 @ 14:02 by Chelle Bee) Father Family history of cancer Mother Family history of cancer Family history of hypertension Social History (Updated 10/11/22 @ 14:03 by Chelle Bee) Within the past year, how often did you have a drink containing alcohol: monthly or less Within the past year, how many standard drinks containing alcohol did you have on a typical day: 1 or 2 Within the past year, how often did you have six or more drinks on one occasion: never Total score: 0 Score interpretation: A score less than 3 is consistent with normal alcohol consumption. Smoking status: Never smoker Non-prescribed substance use: denies use Previous occupational history: retired Highest level of school completed/degree received: some college, no degree Are you now , , , , never or living with a partner: In a typical week, how many times do you talk on the telephone with family, friends, or neighbors: 3 or more times per week How often do you get together with friends or relatives: 3 or more times per week How often do you attend scientologist or jain services: 4 or more times per year Do you belong to any clubs or organizations such as scientologist groups unions, fraternal or athletic groups, or school groups: no Total score: 2 Score interpretation: A score of greater than or equal to 2 indicates the lowest level of social isolation. Little interest or pleasure in doing things: not at all Feeling down, depressed, or hopeless: not at all Feel stressed/tense/nervous/anxious/difficulty sleeping: not at all Gender Identity: female Meds Home Medications and Allergies Home Medications Medication Instructions Recorded Confirmed Type amiodarone 100 mg tablet 100 mg PO DAILY 10/11/22 10/11/22 History amitriptyline 25 mg tablet 25 mg PO QPM 10/11/22 10/11/22 History aspirin 81 mg chewable tablet 81 mg PO DAILY 10/11/22 10/11/22 History (Joel Chewable Low Dose Aspirin) atorvastatin 40 mg tablet 40 mg PO QPM 10/11/22 10/11/22 History carvedilol 3.125 mg tablet 3.125 mg PO BID 10/11/22 10/11/22 History cetirizine 10 mg tablet (24Hour 10 mg PO DAILY PRN allergy symptoms 10/11/22 10/11/22 History Allergy) furosemide 40 mg tablet 40 mg PO BID 10/11/22 10/11/22 History glipizide 5 mg tablet 5 mg PO BID 10/11/22 10/11/22 History levothyroxine 150 mcg tablet 150 mcg PO DAILY 10/11/22 10/11/22 History lisinopril 10 mg tablet 10 mg PO DAILY 10/11/22 10/11/22 History metformin 500 mg tablet,extended 500 mg PO BID 10/11/22 10/11/22 History release 24 hr multivitamin 1 tab PO DAILY 10/11/22 10/11/22 History potassium chloride 10 mEq 10 meq PO DAILY 10/11/22 10/11/22 History tablet,extended release(part/cryst) (Klor-Con M) rivaroxaban 20 mg tablet (Xarelto) 20 mg PO DAILY 10/11/22 10/11/22 History sertraline 50 mg tablet 50 mg PO DAILY 10/11/22 10/11/22 History spironolactone 25 mg tablet 25 mg PO DAILY 10/11/22 10/11/22 History Allergies Allergy/AdvReac Type Severity Reaction Status Date / Time Sulfa (Sulfonamide Allergy Intermediate Rash Verified 10/11/22 10:50 Antibiotics) Exam Constitutional Vital Signs, click to edit/add: Last Vital Signs Temp 97.9 F 10/12/22 06:02 Pulse 70 10/12/22 10:02 Resp 16 10/12/22 06:02 BP 119/47 L 10/12/22 06:02 Pulse Ox 93 L 10/12/22 06:02 O2 Del Method Room Air 10/12/22 06:02 Documenting provider has reviewed patient's vital signs: yes Common normals: no apparent distress, oriented x3 and alert HENMT Common normals: normocephalic Eye Common normals: PERRL and EOMs intact bilaterally Respiratory Common normals: normal respiratory effort and clear to auscultation bilaterally Cardio Common normals: regular rate, regular rhythm, no gallops, no murmurs and no rub GI Common normals: Normal to inspection, nondistended, normoactive bowel sounds present and non-tender Extremity Common normals: no pedal edema Results Labs Labs: Short CBC 10/11/22 10/11/22 10/11/22 Range/Units 00:41 10:50 19:07 WBC 13.1 H 12.6 H (4.0-11.0) 10^3/uL Hgb 6.9 L* 5.3 L* 7.0 L (12.0-16.0) g/dL Hct 20.1 L* 15.9 L* 21.1 L* (36.0-48.0) % Plt Count 252 204 (150-450) 10^3/uL 10/12/22 Range/Units 04:30 WBC 11.2 H (4.0-11.0) 10^3/uL Hgb 6.8 L* (12.0-16.0) g/dL Hct 19.8 L* (36.0-48.0) % Plt Count 213 (150-450) 10^3/uL BMP 10/11/22 10/12/22 10:50 04:30 Sodium 132 L 135 L Potassium 4.4 3.9 Chloride 96 L 100 Carbon Dioxide 25.3 27.7 BUN 131.0 H* 108.0 H* Creatinine 2.51 H 2.04 H Glucose 316 H 170 H Calcium 9.4 9.0 Liver Function 10/11/22 Range/Units 10:50 Total Bilirubin 0.4 (0.2-1.0) mg/dL AST 9 L (15-37) U/L ALT 17 (14-59) U/L Alkaline Phosphatase 43 L (46-116) U/L Albumin 3.2 L (3.4-5.0) g/dL Urine 10/11/22 Range/Units 12:05 Urine Color Lt. yellow (YELLOW) Urine Clarity Clear (CLEAR) Urine pH 5.5 (5.0-9.0) Ur Specific [place] <=1.005 A (1.005-1.025) Urine Protein Negative (NEG/TRACE) mg/dL Urine Glucose (UA) Negative (NEGATIVE) mg/dL Assessment and Plan Assessment and Plan (1) Iron deficiency anemia due to chronic blood loss: (2) GI bleed: (3) Acute UTI: (4) Type 2 diabetes mellitus with hyperglycemia: (5) Hypertension: (6) Stage 3b chronic kidney disease: (7) Paroxysmal atrial fibrillation: (8) Chronic HFrEF (heart failure with reduced ejection fraction): (9) Morbid obesity: Plan Hgb improved after 2 units but remains low and give additional 2 units PRBC. Surgery consulted and plan upper and lower endoscopy in am. Started protonix and held Xarelto. Resume home medication. Monitor labs and vitals. Possible discharge after endoscopy pending results. Anticipate at least 2 midnights in hospital.
--- NOTE | 2022-10-12 11:36 | CM.NOTE ---
Important Message From Medicare discussed with pt, pt verbalizes understanding and signs paper. Original given to pt and copy placed on pt's chart.
--- NOTE | 2022-10-12 12:18 | SWNOTE1 ---
SW met with pt to discuss dc needs. Pt lives at home by herself, her daughter and other family lives close by. Pt did have visitors in room when SW went in, they were a caregiver and a sister as well. Pt's caregiver comes 2x weekly and has been coming since she had knee surgery a few years back. Pt uses a walker at home all the time. Pt voiced she is feeling much better and no concerns about discharge at this time. No needs for pt at discharge. SW to follow as needed.
[2022-10-12] MEDS: PEG3350/SOD SULF,BICARB,CL/KCL 4,000 ML SOLN.RECON 4000 ML PO (13:55)
[2022-10-12 16:02] LABS: Glucometer 203 mg/dL (74-106)
[2022-10-12] MEDS: ATORVASTATIN CALCIUM 40 MG TABLET PO (21:20)
[2022-10-12] MEDS: ACETAMINOPHEN 500 MG TABLET 1000 MG PO (21:20)
[2022-10-12] MEDS: AMITRIPTYLINE HCL 25 MG TABLET PO (21:21)
[2022-10-12 21:22] LABS: Glucometer 106 mg/dL (74-106)
[2022-10-13] VITALS (26 sets, daily range): BP systolic 103–149; BP diastolic 38–76; PULSE 61–87; RESP 13–18; TEMP 36.6–37.3; O2SAT 90–97
--- NOTE | 2022-10-13 | OP_ITS ---
OPERATION DATE: ??10/13/2022 PREOPERATIVE DIAGNOSIS:? Severe anemia. POSTOPERATIVE DIAGNOSIS:? 5 cm hiatal hernia as well as poor prep for the colonoscopy with 4-5 less than 5 mm polyps within the right colon and transverse colon. PROCEDURE:? EGD and colonoscopy to cecum. SURGEON:? Mikey Hoover M.D. ANESTHESIA:? Monitored anesthesia care. ESTIMATED BLOOD LOSS:? Zero. INDICATIONS AND CONSENT:? Patient is a 77-year-old female with multiple medical problems, presented with severe anemia and shortness of breath.? She has had no overt rectal bleeding or changes in the stools.? Indications, risks, benefits, alternatives of proceeding with EGD and colonoscopy were explained extensively to the patient, including the risks of bleeding, aspiration, esophageal/gastric/duodenal perforation or anesthetic complications.? All of her questions were answered.? Informed consent was obtained. PROCEDURE:? Patient brought to the operating room, placed in the left lateral decubitus position.? Monitored anesthesia care was provided.? Bite block was placed in the patient?s mouth.? Scope was inserted into the oropharynx.? Under direct visualization, it was advanced into the esophagus, past the cricopharyngeus, down to the stomach.? The stomach was insufflated with air.? The pylorus was traversed down to the descending portion of the duodenum.? There was no evidence of duodenitis or ulceration.? There was no scarring within the pyloric channel.?? Scope was pulled back into the stomach and retroflexed.? There was noted to be a 5 cm, sliding type hiatal hernia.? There was no old or new blood within the stomach or duodenum.? There was no evidence of ulceration or gastritis.? The GE junction was noted at approximately 35 cm.? There was no distal esophagitis or Villela?s changes. Remainder of the esophagus was unremarkable.? The scope was then withdrawn.? Patient was then positioned for colonoscopy.? Rectal exam was performed, which showed no masses or blood.? The scope was then inserted into the anal canal.? Under direct visualization, it was advanced.? It was advanced to the cecum.? There was noted to be a poor prep with dark liquid stool and semi-solid stool throughout most of the colon that was able to be partially irrigated clear.? The ileocecal valve and the majority of the cecum could be viewed; however, there was particulate matter and dark liquid that could not be removed.? So, there were areas of the cecum that were not completely evaluated. Within the ascending colon and part of the transverse colon, there were multiple polyps, a total of 4-5, all less than 5 mm.? These were not removed due to the poor prep and poor visualization.? There were no ulcerated masses or suspicious lesions.?? No old or new blood.? No vascular lesions or ulcerations.? Upon withdrawal of the scope, mucosal surfaces were examined as best that could be done without any obvious sources of bleeding or large mass lesions or vascular lesions.? No significant diverticular disease.? Within the rectum, there was noted to be some internal/external hemorrhoids, without active bleeding or inflammation.? The scope was then withdrawn.? The patient tolerated procedure well, was sent to recovery room in good condition. CC:? Catina Gay
[2022-10-13 05:13] LABS: Basophils Absolute Auto 0.1 10^3/uL (0.0-0.1); Basophils Percent Auto 0.6 % (0.2-2.0); Eosinophils Absolute Auto 0.2 10^3/uL (0.0-0.7); Eosinophils Percent Auto 2.3 % (0.9-7.0); Hemoglobin 7.2 g/dL (12.0-16.0); Immature Granulocytes Abs Auto 0.08 10^3/uL (0.00-0.03); Immature Granulocytes Pct Auto 0.8 % (0.0-0.5); Lymphocytes Percent Auto 20.2 % (20.5-60.0); Mean Corpuscular HGB Conc 32.3 g/dL (29.9-35.2); Mean Corpuscular Hemoglobin 29.5 pg (26.7-34.0); Mean Corpuscular Volume 91.4 fL (81.0-99.0); Mean Platelet Volume 9.9 fL (9.5-13.5); Monocytes Absolute Auto 0.6 10^3/uL (0.3-0.8); Monocytes Percent Auto 6.5 % (1.7-12.0); Neutrophils Absolute Auto 6.8 10^3/uL (1.4-6.5); Neutrophils Percent Auto 69.6 % (43.0-75.0); Platelet Count 191 10^3/uL (150-450); Red Blood Count 2.44 10^6/uL (4.20-5.40); Red Cell Distribution Width 14.7 % (11.0-15.0); White Blood Count 9.8 10^3/uL (4.0-11.0)
[2022-10-13 05:26] LABS: Hematocrit 22.3 % (36.0-48.0)
[2022-10-13 05:27] LABS: BUN Creatinine Ratio 42.9; Calcium 8.3 mg/dL (8.5-10.1); Carbon Dioxide 30.8 mmol/L (21.0-32.0); Chloride 104 mmol/L (98-107); Estimated GFR (African America 30 (>=60); Estimated GFR (Non-African Ame 25 (>=60); Glucose 82 mg/dL (74-106); Potassium 3.8 mmol/L (3.5-5.1); Sodium 140 mmol/L (136-145)
--- NOTE | 2022-10-13 07:50 | CM.NOTE ---
Rounds made with Dr. Deleon, pt will have 2 more units PRBC's today and EGD/Colonoscopy. No discharge today.
[2022-10-13] MEDS: CEFTRIAXONE 1,000 MG in 0.9 % SODIUM CHLORIDE 50 ML 100 MG IV (08:45)
[2022-10-13] MEDS: CARVEDILOL 3.125 MG TABLET PO ×2 (08:46→20:39)
[2022-10-13] MEDS: PANTOPRAZOLE SODIUM 40 MG VIAL IV ×2 (08:48→20:39)
--- NOTE | 2022-10-13 09:07 | PM.PN ---
Progress Note: Subjective Subjective Interval history: Patient feels better this am. Less fatigue and no SOB. Patient had bowel prep last night and tolerated. Scheduled for upper and lower endoscopy later this am. Hgb decreased overnight. Normal appetite and no emesis or diarrhea prior to bowel prep. No chest pain or palpitations. No SOB or cough. Exam Constitutional Vital Signs, click to edit/add: Last Vital Signs Temp 98.1 F 10/13/22 05:07 Pulse 65 10/13/22 08:00 Resp 18 10/13/22 05:07 BP 130/65 10/13/22 05:07 Pulse Ox 94 L 10/13/22 05:07 O2 Del Method Room Air 10/13/22 05:07 Documenting provider has reviewed patient's vital signs: yes Common normals: no apparent distress, oriented x3 and alert HENMT Common normals: normocephalic Eye Common normals: PERRL and EOMs intact bilaterally Respiratory Common normals: normal respiratory effort and clear to auscultation bilaterally Cardio Common normals: regular rate, regular rhythm, no gallops, no murmurs and no rub GI Common normals: Normal to inspection, nondistended, normoactive bowel sounds present and non-tender Extremity Common normals: no pedal edema Progress Note: Objective Labs Labs: Short CBC 10/12/22 10/13/22 Range/Units 10:36 04:14 WBC 12.2 H 9.8 (4.0-11.0) 10^3/uL Hgb 8.5 L 7.2 L (12.0-16.0) g/dL Hct 25.7 L 22.3 L* (36.0-48.0) % Plt Count 231 191 (150-450) 10^3/uL BMP 10/13/22 04:14 Sodium 140 Potassium 3.8 Chloride 104 Carbon Dioxide 30.8 BUN 85.0 H* Creatinine 1.98 H Glucose 82 Calcium 8.3 L Progress Note: A&P Assessment and Plan (1) Iron deficiency anemia due to chronic blood loss: (2) GI bleed: (3) Acute UTI: (4) Type 2 diabetes mellitus with hyperglycemia: (5) Hypertension: (6) Stage 3b chronic kidney disease: (7) Paroxysmal atrial fibrillation: (8) Chronic HFrEF (heart failure with reduced ejection fraction): (9) Morbid obesity: Plan Hgb decreased overnight and give 2 units PRBC. Scheduled for endoscopy and appreciate surgery input. Continue protonix and hold Xarelto. Urine shows UTI due to E. coli and continue rocephin while awaiting sensitivity. Continue PT for weakness. Monitor vitals. Plan keep at least overnight to monitor hgb.
[2022-10-13 11:23] LABS: Glucometer 155 mg/dL (74-106)
[2022-10-13] MEDS: LACTATED RINGER'S SOLUTION 1,000 ML 75 ML IV (11:30)
[2022-10-13] MEDS: POTASSIUM CHLORIDE 10 MEQ ER TABLET PO (14:05)
[2022-10-13] MEDS: SPIRONOLACTONE 25 MG TABLET PO (14:05)
[2022-10-13] MEDS: LEVOTHYROXINE SODIUM 75 MCG TABLET 150 MCG PO (14:05)
[2022-10-13] MEDS: SERTRALINE HCL 50 MG TABLET PO (14:05)
[2022-10-13] MEDS: MULTIVITAMIN TABLET 1 TAB PO (14:05)
[2022-10-13] MEDS: AMIODARONE HCL 200 MG TABLET 100 MG PO (14:06)
[2022-10-13] MEDS: FUROSEMIDE 40 MG TABLET PO ×2 (14:06→20:39)
[2022-10-13] MEDS: LISINOPRIL 10 MG TABLET PO (14:06)
[2022-10-13 16:11] LABS: Glucometer 282 mg/dL (74-106)
[2022-10-13] MEDS: METFORMIN HCL 500 MG TAB.ER.24H PO (16:38)
[2022-10-13] MEDS: GLIPIZIDE 5 MG TABLET PO (16:38)
[2022-10-13] MEDS: INSULIN ASPART 300 UNIT/3 ML PEN SUBQ (16:38)
[2022-10-13 20:26] LABS: Glucometer 135 mg/dL (74-106)
[2022-10-13] MEDS: ATORVASTATIN CALCIUM 40 MG TABLET PO (20:39)
[2022-10-13] MEDS: AMITRIPTYLINE HCL 25 MG TABLET PO (20:39)
[2022-10-14] VITALS (7 sets, daily range): BP systolic 111; BP diastolic 58; PULSE 54–82; RESP 18; TEMP 36.6; O2SAT 93
[2022-10-14 05:45] LABS: Basophils Percent Auto 0.3 % (0.2-2.0); Eosinophils Absolute Auto 0.4 10^3/uL (0.0-0.7); Hemoglobin 9.2 g/dL (12.0-16.0); Immature Granulocytes Abs Auto 0.08 10^3/uL (0.00-0.03); Immature Granulocytes Pct Auto 0.9 % (0.0-0.5); Lymphocytes Absolute Auto 1.5 10^3/uL (1.2-3.8); Lymphocytes Percent Auto 16.7 % (20.5-60.0); Mean Corpuscular HGB Conc 32.9 g/dL (29.9-35.2); Mean Corpuscular Hemoglobin 29.6 pg (26.7-34.0); Mean Platelet Volume 9.8 fL (9.5-13.5); Monocytes Absolute Auto 0.6 10^3/uL (0.3-0.8); Monocytes Percent Auto 6.7 % (1.7-12.0); Neutrophils Absolute Auto 6.2 10^3/uL (1.4-6.5); Neutrophils Percent Auto 70.4 % (43.0-75.0); Platelet Count 179 10^3/uL (150-450); Red Blood Count 3.11 10^6/uL (4.20-5.40); Red Cell Distribution Width 14.6 % (11.0-15.0); White Blood Count 8.8 10^3/uL (4.0-11.0)
[2022-10-14 05:55] LABS: Anion Gap 10.7; BUN Creatinine Ratio 32.5; Calcium 8.3 mg/dL (8.5-10.1); Chloride 102 mmol/L (98-107); Estimated GFR (African America 38 (>=60); Estimated GFR (Non-African Ame 31 (>=60); Glucose 122 mg/dL (74-106); Potassium 3.7 mmol/L (3.5-5.1); Sodium 137 mmol/L (136-145)
[2022-10-14] MEDS: METFORMIN HCL 500 MG TAB.ER.24H PO (08:55)
[2022-10-14] MEDS: GLIPIZIDE 5 MG TABLET PO (08:56)
[2022-10-14] MEDS: AMIODARONE HCL 200 MG TABLET 100 MG PO (08:56)
[2022-10-14] MEDS: POTASSIUM CHLORIDE 10 MEQ ER TABLET PO (08:57)
[2022-10-14] MEDS: FUROSEMIDE 40 MG TABLET PO (08:57)
[2022-10-14] MEDS: LEVOTHYROXINE SODIUM 75 MCG TABLET 150 MCG PO (08:57)
[2022-10-14] MEDS: SERTRALINE HCL 50 MG TABLET PO (08:57)
[2022-10-14] MEDS: LISINOPRIL 10 MG TABLET PO (08:57)
[2022-10-14] MEDS: CARVEDILOL 3.125 MG TABLET PO (08:57)
[2022-10-14] MEDS: SPIRONOLACTONE 25 MG TABLET PO (08:57)
[2022-10-14] MEDS: MULTIVITAMIN TABLET 1 TAB PO (08:57)
[2022-10-14] MEDS: CEFTRIAXONE 1,000 MG in 0.9 % SODIUM CHLORIDE 50 ML 100 MG IV (09:12)
[2022-10-14] MEDS: PANTOPRAZOLE SODIUM 40 MG VIAL IV (09:13)
--- NOTE | 2022-10-14 09:18 | REH.PTDLY ---
Physical Therapy Daily Note PT Daily Note/Assess Start: 10/13/22 11:05 Freq: Status: Active Protocol: Document 10/14/22 09:14 MEG (Rec: 10/14/22 09:18 MEG [id number]) Physical Therapy Daily Note/Assessment Time In 08:58 Time Out 09:11 Pain Level 0 Pain Level 0 Subjective Pt awake in bed, just ordered breakfast. No complaints. Said they are not sure where bleeding is coming from as they did not find anything with procedure yesterday Therapeutic Exercise Minutes (minutes) 6 Therapeutic Exercise Units 0 Therapeutic Exercise Treatment Instructed in seated exs 20x each for improved strength. Pt ind with seated program as pt reports she performs these everyday 20x a day Therapeutic Activity Minutes (minutes) 8 Therapeutic Activity Units 1 Bed Mobility Ability Minimum Assist Chair Transfer Ability Standby Assistance Therapeutic Activity Comments Pt requires Min A once sitting up to scoot self forward to EOB. Assist to don boot and shoe. Sit to stand transfers SBA. Gait training with RW 30 feet SBA. Pt able to transfer in and out of chair SBA. Total Therapy Minutes 14 Total Physical Therapy Units 1 Daily Note Summary Pt able to transfer SBA with progressing gait distance. Attempted standing exs, but pt weak with this and reports balance is just not good due to boot. Relies heavily on UE support. Ind with seated exs.
[2022-10-14 11:09] LABS: Glucometer 252 mg/dL (74-106)
[2022-10-14] MEDS: INSULIN ASPART 300 UNIT/3 ML PEN SUBQ (11:21)
[2022-10-14 11:31] LABS: Hematocrit 30.4 % (36.0-48.0)
--- NOTE | 2022-10-15 00:55 | PM.DS1 ---
DS: Providers Provider Date of admission: 10/11/22 12:37 Primary care physician: Gumaro Deleon MD Consults: 10/11/22 13:04 Consult to General Surgeon Routine Consulting Provider: Mikey Hoover Reason for consultation: gi bleed Has provider been notified: Yes 10/11/22 17:13 Occupational Therapy Eval and Treat Routine Reason for consultation: Weakness Physical Therapy Eval and Treat Routine Reason for consultation: Weakness Attending physician on discharge: Shaikh Jelani Discharging clinician: Shaikh Jelani Anticipated date of discharge: 10/14/22 DS: Diagnosis Discharge Diagnosis (1) GI bleed: Assessment and plan: p/w Hb of 6.9, positive occult blood. No overt GIB and no report of melena/BRBPR. EGD - hiatal hernia, no PUD, gastritis. No stigmata of active bleeding noted. Colonoscopy - no sig abnormality noted. Required 5 units of PRBC. Hb stable since yesterday. Stable for d/c Qualifiers: GI bleed type/associated pathology: unspecified gastrointestinal hemorrhage type Qualified Code(s): K92.2 - Gastrointestinal hemorrhage, unspecified (2) Iron deficiency anemia due to chronic blood loss: Assessment and plan: Due to GIB. Patient refused IV iron due to prior hx of adverse reaction. Hb stable. D/c on oral Iron. (3) Acute UTI: Assessment and plan: sec to E coli. D/c on oral ceftin. (4) ESTELA (acute kidney injury): Assessment and plan: Cr above 2 on admission. Improved and back to baseline. Likely pre renal. (5) Paroxysmal atrial fibrillation: Assessment and plan: Hx of Parox. Afib. C/w amiodarone, carvedilol. On Xarelto for stroke px prior to admission that was withheld due to GIB. Patient asked to continue to hold Xarelto until seen by PCP/cardiology to decide whether its appropriate to resume Xarelto or not. (6) Chronic HFrEF (heart failure with reduced ejection fraction): Assessment and plan: Euvolemic. On Coreg, Lisinopril, aldactone, lasix (7) Hypertension: Assessment and plan: C/w home meds. (8) Stage 3b chronic kidney disease: Assessment and plan: Cr stable. Outpatient f/u (9) Diabetes mellitus: Assessment and plan: C/w oral meds as outpatient. Qualifiers: Diabetes mellitus type: type 2 Diabetes mellitus custodial insulin use: without custodial use Diabetes mellitus complication status: with kidney complications Diabetes mellitus complication detail: with chronic kidney disease Chronic kidney disease stage: stage 3 (moderate) (10) Dyslipidemia: Assessment and plan: C/w statin DS: Summary Hospital Course Hospital Course: Patient presented with weakness, chest tightness, SOB - found to have anemia with Hb of 6.9. Required 5 units PRBC. Underwent EGD/colonoscopy - no sig abnormality noted, no active bleeding noted. Xarelto, ASA withheld while in the hospital. Pt asked to d/w PCP/cardiology to decide on resuming Xarelto/ASA. Patient also asked to have her CBC rechecked in one week to ensure Hb is stable. No prior hx of GIB while on DOACs. She was previously on Eliquis and was switched to Xarelto recently. Patient also noted to have UTI sec to E coli - jailene d/c on oral ceftin. Patient educated on warning signs and symptoms that should prompt her to seek medical attention. Delayed note for my encounter on 10/14/2022 Status at Discharge Functional status at discharge: independent ambulation Overall status at discharge: patient is back to baseline Time Spent with Patient Time attestation: Total time spent providing and/or coordinating discharge services: Time spent: greater than 30 minutes Quality: Stroke Symptom Onset Unknown: No Exam Constitutional Vital Signs, click to edit/add: Last Vital Signs Temp 97.9 F 10/14/22 05:41 Pulse 82 10/14/22 12:20 Resp 18 10/14/22 05:41 BP 111/58 10/14/22 05:41 Pulse Ox 93 L 10/14/22 05:41 O2 Del Method Room Air 10/14/22 05:41 Documenting provider has reviewed patient's vital signs: yes Common normals: no apparent distress and oriented x3 General appearance: cooperative HENMT Common normals: normocephalic and head/scalp atraumatic Head and scalp: normocephalic and atraumatic Eye Common normals: conjunctivae normal and no scleral icterus Conjunctiva: conjunctiva(e) normal Respiratory Common normals: normal respiratory effort and clear to auscultation bilaterally Effort & inspection: able to speak in complete sentences Auscultation: clear to auscultation bilaterally Cardio Common normals: regular rate, S1 normal heart sound and S2 normal heart sound Rate: regular rate Heart sounds: S1 normal and S2 normal GI Common normals: Normal to inspection, nondistended, normoactive bowel sounds present, soft to palpation, non-tender and no hepatosplenomegaly Palpation: soft and no hepatosplenomegaly Neuro Common normals: oriented x3, moves all extremities and no focal motor deficits Psych Common normals: mental status grossly normal, denies hallucinations, denies homicidal ideation and denies suicidal ideation DS: Data Data Completed and Pending Labs on day of discharge: Labs from last 24 hours 10/14/22 10/14/22 10/14/22 11:25 11:08 04:44 WBC 8.8 RBC 3.11 L Hgb 10.0 L 9.2 L Hct 30.4 L 28.0 L MCV 90.0 MCH 29.6 MCHC 32.9 RDW 14.6 Plt Count 179 MPV 9.8 Neut % (Auto) 70.4 Lymph % (Auto) 16.7 L [place] % (Auto) 6.7 Eos % (Auto) 5.0 Baso % (Auto) 0.3 Neut # (Auto) 6.2 Lymph # (Auto) 1.5 [place] # (Auto) 0.6 Eos # (Auto) 0.4 Baso # (Auto) 0.0 Abs Immat Gran (auto) 0.08 H Imm/Tot Granulo (auto) 0.9 H Sodium 137 Potassium 3.7 Chloride 102 Carbon Dioxide 28.0 Anion Gap 10.7 BUN 52.0 H Creatinine 1.60 H Est GFR ( Amer) 38 L Est GFR (Non-Af Amer) 31 L BUN/Creatinine Ratio 32.5 Glucose 122 H Calcium 8.3 L POC Glucose 252 H Preliminary micro results at discharge 10/11/22 11:27 Blood Culture Result 1 - Preliminary Blood NO GROWTH AT 36-48 HOURS. FINAL TO FOLLOW. 10/11/22 11:20 Blood Culture Result 1 - Preliminary Blood NO GROWTH AT 36-48 HOURS. FINAL TO FOLLOW. Discharge Plan Discharge Disposition: Home, Self-Care Condition: Good Discharge Medications: New pantoprazole [Protonix] 40 mg tablet,delayed release (DR/EC) 40 mg PO DAILY Qty: 30 0RF cefuroxime axetil 250 mg tablet 250 mg PO BID 5 Days Qty: 10 0RF Continued potassium chloride [Klor-Con M10] 10 mEq tablet,ER particles/crystals 10 meq PO DAILY sertraline 50 mg tablet 50 mg PO DAILY spironolactone 25 mg tablet 25 mg PO DAILY atorvastatin 40 mg tablet 40 mg PO QPM amitriptyline 25 mg tablet 25 mg PO QPM multivitamin Tablet 1 tab PO DAILY carvedilol 3.125 mg tablet 3.125 mg PO BID amiodarone 100 mg tablet 100 mg PO DAILY furosemide 40 mg tablet 40 mg PO BID glipizide 5 mg tablet 5 mg PO BID levothyroxine 150 mcg tablet 150 mcg PO DAILY lisinopril 10 mg tablet 10 mg PO DAILY metformin 500 mg tablet extended release 24 hr 500 mg PO BID cetirizine [24Hour Allergy] 10 mg tablet 10 mg PO DAILY PRN (Reason: allergy symptoms) cyclosporine [Restasis] 0.05 % dropperette 1 drp ophthalmic (eye) Q12H PRN (Reason: dry eye(s)) Discontinued Xarelto 20 mg tablet 20 mg PO DAILY aspirin [Joel Chewable Aspirin] 81 mg tablet,chewable 81 mg PO DAILY Activity: increase activity as tolerated Diet: advance to your usual diet Patient Instructions: Cefuroxime (By mouth), Pantoprazole (By mouth), Anemia (DC) Forms: Portal Instructions Follow Up Appointments: PCP in one week/ Cardiology in 1-2 weeks Call on Sunday since no offices open today (Sunday) Discharge Date/Time: 10/14/22 13:30
--- NOTE | 2022-10-16 11:18 | CM.DCFOLLOWU ---
Person spoke with: patient How are you feeling? well, stronger than before since she did receive 5 units of blood How is your pain? no pain Did you understand your discharge instructions? yes Do you have any questions about your discharge instructions? no Were you given any prescriptions at discharge? yes Were you able to get your prescriptions filled? yes, filled on Sunday and started on Sunday Do you understand how to take your medications as ordered? yes Do you have any questions about your follow up appointment and do you plan to keep your follow up appointment? no question, have follow up with camera engineer on Sunday and left message for PCP, waiting for call back to schedule Is there anything else that you would like to discuss? no Questions/Comments/Concerns/Other:
== END 2022-10-14 13:30 | disposition home or self-care (01) | DRG 378 ==
LOC: ER 12:38 → MS 14:01
PROVIDERS: Surgery; Admitting Provider Internal Medicine; Emergency Provider Emergency Medicine; PCP Family Medicine; Visit Provider Internal Medicine
DX: K92.2 Gastrointestinal hemorrhage, unspecified (principal); I13.0 Hypertensive heart and chronic kidney disease with heart failure and stage 1 through stage 4 chronic kidney disease, or unspecified chronic kidney disease; N39.0 Urinary tract infection, site not specified; I50.22 Chronic systolic (congestive) heart failure; N17.9 Acute kidney failure, unspecified; Z68.42 Body mass index [BMI] 45.0-49.9, adult; D50.0 Iron deficiency anemia secondary to blood loss (chronic); E78.5 Hyperlipidemia, unspecified; K44.9 Diaphragmatic hernia without obstruction or gangrene; K63.5 Polyp of colon; I48.0 Paroxysmal atrial fibrillation; E11.22 Type 2 diabetes mellitus with diabetic chronic kidney disease; B96.20 Unspecified Escherichia coli [E. coli] as the cause of diseases classified elsewhere; N18.32 Chronic kidney disease, stage 3b; E11.65 Type 2 diabetes mellitus with hyperglycemia; E66.01 Morbid (severe) obesity due to excess calories; M19.90 Unspecified osteoarthritis, unspecified site; Z96.659 Presence of unspecified artificial knee joint; Z82.49 Family history of ischemic heart disease and other diseases of the circulatory system; Z95.2 Presence of prosthetic heart valve; Z88.2 Allergy status to sulfonamides; Z79.84 Long term (current) use of oral hypoglycemic drugs; Z79.01 Long term (current) use of anticoagulants; Z79.82 Long term (current) use of aspirin; Z79.890 Hormone replacement therapy; Z79.899 Other long term (current) drug therapy
CPT/HCPCS: 36415; 36430; 51702; 71045; 80048; 80053; 81001; 82948; 83880; 84484; 85014; 85018; 85025; 86850; 86900; 86901; 86920; 87040; 87086; 87150; 87186; 87635; 87811; 93005; 96365; 96366; 96375; 96376; 97161; 97165; 97530; 97535; 99285; G0328; J2704; P9016; U0003

== ENCOUNTER 2022-10-26 12:40 | Outpatient (OUT) | payer MEDICARE, OTHER, SELFPAY ==
--- NOTE | 2022-10-26 13:00 | XR_ITS ---
The [address] [address] Patient Name: PERCY SAMUELS MRN: [id number] date: 1945 Sex: F Assigned Patient Location: LAB Current Patient Location: LAB Accession/Order Number: [id number] Exam Date: 10/26/2022 13:05 Report Date: 10/26/2022 13:46 At the request of: LORE HAWTHORNE Procedure: XR chest 2V EXAM: XR chest 2V HISTORY: Brand Representative Drug Therapy Z79.899 COMPARISON: 10/11/2022 TECHNIQUE: Upright PA and lateral chest x-ray FINDINGS: The heart is not enlarged and the vasculature is not distended. A mesh prosthetic cardiac valve is in place. No acute infiltrate, effusion or pneumothorax is identified. Degenerative changes are seen in the spine and shoulder girdle. Hardware projects over the upper lumbar spine. XR/XR chest 2V IMPRESSION: No acute infiltrate or evidence of cardiac decompensation. Given the differences in technique, the overall appearance of the chest is otherwise unchanged. Electronically authenticated by: ROSA MANRIQUEZ Date: 10/26/2022 13:46
[2022-10-26 14:25] LABS: Alanine Aminotransferase 24 U/L (14-59); Albumin Level 3.6 g/dL (3.4-5.0); Alkaline Phosphatase 70 U/L (46-116); Aspartate Amino Transferase 15 U/L (15-37); Bilirubin Direct 0.2 mg/dL (0.0-0.2); Bilirubin Total 0.8 mg/dL (0.2-1.0); Globulin 3.7 g/dL; Thyroid Stimulating Hormone 1.338 uIU/mL (0.358-3.740); Total Protein 7.3 g/dL (6.4-8.2)
[2022-10-26 15:20] LABS: Free T4 1.71 ng/dL (0.76-1.46)
== END 2022-10-26 12:41 | disposition home or self-care (01) ==
LOC: LAB 12:41
PROVIDERS: PCP Family Medicine; Visit Provider Nurse Practitioner Family
DX: Z79.899 Other long term (current) drug therapy (principal)
CPT/HCPCS: 36415; 71046; 80076; 84439; 84443

== ENCOUNTER 2022-11-01 10:53 | Outpatient (OUT) | payer MEDICARE, OTHER, SELFPAY ==
[2022-11-01 13:36] LABS: Estimated Average Glucose 154 mg/dL
== END 2022-11-01 10:54 | disposition home or self-care (01) ==
PROVIDERS: PCP Family Medicine; Visit Provider Family Medicine
DX: E11.9 Type 2 diabetes mellitus without complications (principal)
CPT/HCPCS: 36415; 83036

== ENCOUNTER 2022-11-23 12:50 | Outpatient (OUT) | payer MEDICARE, OTHER, SELFPAY ==
[2022-11-23 13:20] LABS: Basophils Absolute Auto 0.1 10^3/uL (0.0-0.1); Basophils Percent Auto 0.9 % (0.2-2.0); Eosinophils Absolute Auto 0.2 10^3/uL (0.0-0.7); Eosinophils Percent Auto 2.2 % (0.9-7.0); Hematocrit 30.5 % (36.0-48.0); Hemoglobin 9.6 g/dL (12.0-16.0); Immature Granulocytes Abs Auto 0.02 10^3/uL (0.00-0.03); Immature Granulocytes Pct Auto 0.3 % (0.0-0.5); Lymphocytes Absolute Auto 1.2 10^3/uL (1.2-3.8); Lymphocytes Percent Auto 17.6 % (20.5-60.0); Mean Corpuscular HGB Conc 31.5 g/dL (29.9-35.2); Mean Corpuscular Hemoglobin 26.2 pg (26.7-34.0); Mean Corpuscular Volume 83.1 fL (81.0-99.0); Monocytes Absolute Auto 0.4 10^3/uL (0.3-0.8); Monocytes Percent Auto 5.9 % (1.7-12.0); Neutrophils Absolute Auto 4.9 10^3/uL (1.4-6.5); Neutrophils Percent Auto 73.1 % (43.0-75.0); Platelet Count 210 10^3/uL (150-450); Red Blood Count 3.67 10^6/uL (4.20-5.40); Red Cell Distribution Width 14.9 % (11.0-15.0); White Blood Count 6.8 10^3/uL (4.0-11.0)
== END 2022-11-23 12:51 | disposition home or self-care (01) ==
LOC: LAB 12:55
PROVIDERS: PCP Family Medicine; Visit Provider Internal Medicine Cardiovascular Disease
DX: K92.2 Gastrointestinal hemorrhage, unspecified (principal)
CPT/HCPCS: 36415; 85025

== ENCOUNTER 2023-01-24 14:31 | Outpatient (OUT) | payer MEDICARE, OTHER, SELFPAY ==
--- NOTE | 2023-01-24 | XR_ITS ---
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 There is again evidence of resection of the distal fibula There is again prominent bone demineralization and pes planus deformity. An intramedullary melissa extends through the mid anterior hindfoot. Calcaneal screw extends horizontally and obliquely noted on lateral view, stable from previous exam Osseous structures are in stable alignment from previous exam. No fractures or other acute osseous abnormalities.. XR/XR ankle LT min 3V IMPRESSION: Extensive postop changes of the ankle and hindfoot. Osseous structures remain stable alignment when compared to previous exam. No acute osseous abnormalities identified. Electronically authenticated by: RENEE RODRIGUEZ Date: 01/24/2023 15:55
--- NOTE | 2023-01-24 | XR_ITS ---
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 These are described on ankle radiographs done the same day as these foot radiographs.. The foot shows prominent bone demineralization as before. Heel spur is again identified, stable. There is no evidence of fractures or other acute osseous abnormalities on today's images. XR/XR foot LT min 3V IMPRESSION: Extensive distal tibia and hindfoot postop changes Prominent bone demineralization. No acute osseous abnormalities identified on today's foot radiographs. Electronically authenticated by: RENEE RODRIGUEZ Date: 01/24/2023 15:58
== END 2023-01-24 14:32 | disposition home or self-care (01) ==
LOC: WC 14:31
PROVIDERS: PCP Family Medicine; Visit Provider Podiatrist Foot & Ankle Surgery
DX: M79.672 Pain in left foot (principal); M25.572 Pain in left ankle and joints of left foot; Z98.890 Other specified postprocedural states; E11.622 Type 2 diabetes mellitus with other skin ulcer; L97.321 Non-pressure chronic ulcer of left ankle limited to breakdown of skin; E11.621 Type 2 diabetes mellitus with foot ulcer; L97.421 Non-pressure chronic ulcer of left heel and midfoot limited to breakdown of skin; M14.672 Charcot's joint, left ankle and foot
CPT/HCPCS: 73610; 73630; G0463

== ENCOUNTER 2023-02-06 09:14 | Outpatient (OUT) | payer MEDICARE, SELFPAY ==
--- OUTSIDE RECORDS SUMMARY | 2023-02-06 09:18 | XMS_ITS | CCD ---
Author Name Unknown Address [address] [place] [address] Organization [facility] Care Team Providers Care Mechanical Field Engineer Name Role Phone STEPHANIE CARBALLO Referring Unavailable SELF, REFERRED Primary Care Unavailable RAGHAVENDRA PERRY Admitting Unavailable PHAM SIMMONS Attending Unavailable OR Procedure Practitioner Unavailab OMEGA Ramirez Surgeon Unavailable OR Procedure Practitioner Unavailab NATA Tinoco ABD Surgeon Unavailable PHAM GABRIEL Admitting Unavailable BERNADETTEPHAM Attending Unavailable SELF, REFERRED Primary Care Unavailable SELF, REFERRED Referring Unavailable NADERER, DR GUMARO Fernandes Primary Care Unavailable NADERER, DR GUMARO Fernandes Admitting Unavailable NADERER, DR GUMARO Fernandes Attending Unavailable NADERER, DR GUMARO Fernandes Consulting Unavailable HIGHLANDER, ROSA Wadsworth Admitting Unavailable ZIEBER, DR GENE Montague Consulting Unavailable HIGHLANDER, ROSA Wadsworth Attending Unavailable NADERER, DR GUMARO Fernandes Primary Care Unavailable HIGHLANDER, ROSA Wadsworth Consulting Unavailable NADERER, DR GUMARO Fernandes Admitting Unavailable NADERER, DR GUMARO Fernandes Attending Unavailable NADERER, DR GUMARO Fernandes Consulting Unavailable NADERER, DR GUMARO Fernandes Primary Care Unavailable NADERER, DR GUMARO Fernandes Primary Care Unavailable [place], DR FABRICIO Novak Consulting Unavailable HIGHLANDER, ROSA Wadsworth Admitting Unavailable HIGHLANDER, ROSA Wadsworth Attending Unavailable HIGHLANDER, PETER D Consulting Unavailable Mikey NIELSON Attending Unavailable MD Joe Cosme Attending Provider [phone] MD Gumaro Ordonez Primary Care Provider [phone] DEN BURNETT Attending Unavailable JOLENE CARR Attending Unavailable DEN BURNETT Attending Unavailable JOLENE CARR Attending Unavailable DEN BURNETT Attending Unavailable Joe Cosme Attending Unavailable Gumaro Ordonez Primary Care Unavailable Joe Cosme Admitting Unavailable Joe Cosme Attending Unavailable Gumaro Ordonez Primary Care Unavailable Joe Cosme Admitting Unavailable Allergies Allergy Classification Reported Allergen(s) Allergy Type Date of Onset Reaction(s) Facility (3 sources) Sulfonamides (Antibiotic); Translations: [SULFA (SULFONAMIDE ANTIBIOTICS)] Drug allergy (disorder) 07-11-2013 [facility] Repository (1 source) Sulfonamides (Antibiotic) Drug allergy (disorder) 10-27-2022 [facility] Repository Medications Current Medications Medication Drug Class(es) Dates Sig (Normalized) Sig (Original) amiodarone hydrochloride 100 mg oral tablet (1 source) Antiarrhythmic Start: 10-27-2022 take 100 mg by mouth once daily Amiodarone Active 100 MG PO Daily October 27, 2022 12:00am amitriptyline hydrochloride 25 mg oral tablet (1 source) Tricyclic Antidepressant Start: 10-27-2022 take 25 mg by mouth once daily Amitriptyline Active 25 MG PO Daily October 27, 2022 12:00am ascorbic acid 500 mg oral tablet (1 source) Vitamin C Start: 10-27-2022 take 1 tablet by mouth once daily Ascorbic Acid (Vitamin C) (Vitamin C) 500 mg Tablet Active 500 MG PO Daily October 27, 2022 12:00am aspirin 81 mg oral tablet (1 source) Platelet Aggregation Inhibitor, Nonsteroidal Anti-inflammatory Drug Start: 10-27-2022 take 81 mg by mouth once daily Aspirin Active 81 MG PO Daily October 27, 2022 12:00am atorvastatin 40 mg oral tablet (1 source) HMG-CoA Reductase Inhibitor Start: 10-27-2022 take 40 mg by mouth once daily Atorvastatin Active 40 MG PO Daily October 27, 2022 12:00am calcium citrate 1190 mg / cholecalciferol 0.005 mg oral tablet (1 source) Vitamin D Start: 10-27-2022 take 1 tablet by mouth once daily Calcium Citrate-Vitamin D3 (Citracal Plus D) 250 mg-5 mcg (200 unit) Tablet Active 1 TAB PO Daily October 27, 2022 12:00am carvedilol 3.125 mg oral tablet (1 source) alpha-Adrenergic Davina, beta-Adrenergic Davina Start: 10-27-2022 take 3.125 mg by mouth twice daily Carvedilol Active 3.125 MG PO Twice daily October 27, 2022 12:00am cholecalciferol 0.025 mg oral tablet (1 source) Vitamin D Start: 10-27-2022 take 1 tablet by mouth once daily Cholecalciferol (Vitamin D3) (Vitamin D3) 25 mcg (1,000 unit) Tablet Active 25 MCG PO Daily October 27, 2022 12:00am furosemide 40 mg oral tablet (1 source) Loop Diuretic Start: 10-27-2022 take 40 mg by mouth once daily Furosemide Active 40 MG PO Daily October 27, 2022 12:00am glipiZIDE 5 mg oral tablet (1 source) Sulfonylurea Start: 10-27-2022 take 5 mg by mouth twice daily Glipizide Active 5 MG PO Twice daily October 27, 2022 12:00am levothyroxine sodium 0.15 mg oral tablet (1 source) l-Thyroxine Start: 10-27-2022 take 150 ug by mouth once daily Levothyroxine Active 150 MCG PO Daily October 27, 2022 12:00am lisinopril 10 mg oral tablet (1 source) Angiotensin Converting Enzyme Inhibitor Start: 10-27-2022 take 10 mg by mouth once daily Lisinopril Active 10 MG PO Daily October 27, 2022 12:00am 24 hr metFORMIN hydrochloride 500 mg extended release oral tablet (1 source) Biguanide Start: 10-27-2022 take 500 mg by mouth twice daily Metformin Active 500 MG PO Twice daily October 27, 2022 12:00am Multivitamin preparation (1 source) Start: 10-27-2022 take 1 tablet by mouth once daily Multivitamin Active 1 TAB PO Daily October 27, 2022 12:00am potassium chloride 10 meq extended release oral tablet (1 source) Start: 10-27-2022 take 10 mEq by mouth once daily Potassium Chloride Active 10 MEQ PO Daily October 27, 2022 12:00am rivaroxaban 20 mg oral tablet (1 source) Factor Xa Inhibitor Start: 10-27-2022 take 1 tablet by mouth once daily Rivaroxaban (Xarelto) 20 mg tablet Active 20 MG PO Daily October 27, 2022 12:00am sertraline 50 mg oral tablet (1 source) Serotonin Reuptake Inhibitor Start: 10-27-2022 take 50 mg by mouth once daily Sertraline Active 50 MG PO Daily October 27, 2022 12:00am spironolactone 25 mg oral tablet (1 source) Aldosterone Antagonist Start: 10-27-2022 take 25 mg by mouth once daily Spironolactone Active 25 MG PO Daily October 27, 2022 12:00am ubidecarenone 100 mg oral capsule (1 source) Start: 10-27-2022 Coenzyme Q10 (Co Q-10) 100 mg Capsule Active 100 MG PO Daily October 27, 2022 12:00am Vitamin B Complex (1 source) Start: 10-27-2022 take 1 tablet by mouth once daily Vitamin B Complex Active 1 TAB PO Daily October 27, 2022 12:00am vitamin e 400 unt/ml oral solution (1 source) Start: 10-27-2022 take 400 [IU] by mouth once daily Vitamin E Active 400 UNIT PO Daily October 27, 2022 12:00am Problems Active Problems Problem Classification Problem Date Documented Da te Episodic/Chronic Cardiac dysrhythmias (3 sources) Persistent atrial fibrillation; Translations: [Paroxysmal atrial fibrillation] Onset: 9 Chronic Cardiac dysrhythmias (2 sources) Cardiac dysrhythmias Onset: 9 Congestive heart failure; nonhypertensive (3 sources) Acute systolic (congestive) heart failure; Translations: [Chronic systolic (congestive) heart failure] Onset: 9 Chronic Coronary atherosclerosis and other heart disease (1 source) Atherosclerotic heart disease of [place] coronary artery without angina pectoris; Translations: [ATHSCL HEART DISEASE OF [place] CORONARY ARTERY W/O ANG PCTRS] Onset: 9 Chronic Diabetes mellitus with complications (4 sources) Type 2 diabetes mellitus with hyperglycemia; Translations: [TYPE 2 DM W/HYPERGLYCEMIA] Onset: 3 Chronic Diabetes mellitus with complications (2 sources) Type 2 diabetes mellitus with diabetic neuropathy, unspecified; Translations: [Type 2 diabetes mellitus with diabetic neuropathic arthropathy] Onset: 9 Disorders of lipid metabolism (1 source) Hyperlipidemia, unspecified; Translations: [HYPERLIPIDEMIA UNSPECIFIED] Onset: 3 Chronic Essential hypertension (1 source) Essential (primary) hypertension; Translations: [ESSENTIAL PRIMARY HYPERTENSION] Onset: 3 Chronic Gastrointestinal hemorrhage (1 source) Gastrointestinal hemorrhage; Translations: [Gastrointestinal hemorrhage, unspecified] Onset: 3 Heart valve disorders (3 sources) Rheumatic disorders of both mitral and aortic valves; Translations: [Presence of xenogenic heart valve] Onset: 9 Chronic Hypertension with complications and secondary hypertension (1 source) Hypertensive heart disease with heart failure; Translations: [HYPERTENSIVE HEART DISEASE WITH HEART FAILURE] Onset: 9 Chronic Osteoarthritis (1 source) Unspecified osteoarthritis, unspecified site; Translations: [UNSPECIFIED OSTEOARTHRITIS, UNSPECIFIED SITE] Onset: 9 Chronic Other aftercare (1 source) Other long term acute care registered nurse (current) drug therapy; Translations: [OTH COOK APPRENTICE CURRENT DRUG THERAPY] Onset: 3 Episodic Other aftercare (1 source) residential (current) use of anticoagulants; Translations: [terminal worker (current) use of anticoagulants] Onset: 3 Episodic Other diseases of veins and lymphatics (1 source) Venous insufficiency (chronic) (peripheral); Translations: [VENOUS INSUFFICIENCY (CHRONIC) (PERIPHERAL)] Onset: 9 Episodic Other gastrointestinal disorders (1 source) Angiodysplasia of colon with hemorrhage; Translations: [Angiodysplasia of colon with hemorrhage] Onset: 3 Episodic Other lower respiratory disease (2 sources) Shortness of breath; Translations: [SHORTNESS OF BREATH] Onset: 9 Episodic Other non-traumatic joint disorders (4 sources) Charcot's joint, left ankle and foot; Translations: [CHARCOTS JOINT LEFT ANKLE AND FO] Onset: 3 Chronic Other nutritional; endocrine; and metabolic disorders (1 source) Body mass index (BMI) 45.0-49.9, adult; Translations: [BODY MASS INDEX (BMI) 45.0-49.9, ADULT] Onset: 9 Chronic Other nutritional; endocrine; and metabolic disorders (1 source) Obesity, unspecified; Translations: [OBESITY, UNSPECIFIED] Onset: 9 Chronic Pulmonary heart disease (1 source) Pulmonary hypertension, unspecified; Translations: [PULMONARY HYPERTENSION, UNSPECIFIED] Onset: 9 Thyroid disorders (2 sources) Hypothyroidism, unspecified; Translations: [HYPOTHYROIDISM, UNSPECIFIED] Onset: 9 Chronic Unclassified (2 sources) Other persistent atrial fibrillation; Translations: [Other persistent atrial fibrillation] Onset: 2 Past or Other Problems Problem Classification Problem Date Documented Da te Episodic/Chronic Other non-traumatic joint disorders (4 sources) Pain in left ankle and joints of left foot; Translations: [PAIN IN LEFT ANKLE] Onset: 09-28-2021 Episodic Results Test Name Value Interpretation Reference Range Facility Office Visiton 01-12-2023 Follow-up visit [id number] Jacquelyn Kaplan 1945 F Date Provider Department Center 01/12/2023 JOLENE LOPEZ EDEN [facility] Family History Problem Relation Age of Onset Aortic stenosis Father Other Father Family Status - Relation Status Age at Father Level of Service:59422 OR OFFICE/OUTPATIENT ESTABLISHED HIGH MDM 40-54 MIN Normal [facility] Office Visiton 11-14-2022 Follow-up visit [id number] Jacquelyn Kaplan 1945 F Date Provider Department Center 11/14/2022 LauraDEN FABIAN EDEN [facility] Family History Problem Relation Age of Onset Aortic stenosis Father Other Father Family Status - Relation Status Age at Father Level of Service:73477 OR OFFICE/OUTPATIENT ESTABLISHED LOW MDM 20-29 MIN Normal [facility] Glucose Glucometer (BldC) [M ass/Vol]Ordered By: Joe Cosme on 10-27-2022 Glucose [Mass/Vol] 220 mg/dL [facility] Comment on above: Random Glucose Refer ence Range is dependent on time and content of last meal. Glucose of more than 200 mg/dL in a nonstressed, ambulatory subject supports the diagnosis of Diabetes Mellitus. Glucose Poct Glucometerson 0 10-27-2022 Commemt1 Glu2: Cleaned Meter Normal [facility] Comment on above: Result Comment: PERF ORMED BY: [facility] [address] [place] [address] PATHOLOGIST [employer] PROFESSIONAL NORMA MONTANA M.D. Performed By: #### G LULS #### Point of Care testing , Glucose [Mass/Vol] 220 mg/dL Normal [facility] Comment on above: Result Comment: [facility] Glucose Reference Range is dependent on time and content of last meal. Glucose of more than 200 mg/dL in a nonstressed, ambulatory subject supports the diagnosis of Diabetes Mellitus. Performed By: #### G MELODIE #### Point of Care testing , Ryan 10-27-2022 L Specimen: [id number] Received: 10/27/22 Status: TRAVIS Casas Num: [id number] Spec Type: Surgical Subm Dr: Joe Cosme MD Tissues: A Colon Biopsy (ASCND COL) Procedures: HE/Mike Schmidt/Awa L4 Age/ Patient Sex Location Account Attending Physician Jacquelyn Kaplan 77/F [id number] Joe Cosme MD SPEC NUM: [id number] RECD: 10/27/22 STATUS: TRAVIS AMADOR NUM: [id number] DELMY: 10/27/22 DR: Joe Cosme MD ENTERED: 10/27/[address] [facility] [address]: SPEC TYPE: Surgical DEPT: S ENTERED BY: [id number] RECV BY: [id number] ORDERED: HE/2, Gross/Micro L4 ORDERED: HE/2, Gross/Micro L4 Pathological Diagnosis Ascending colon polyp biopsy: - Multiple fragments of tubular adenomatous polyp without high-grade features Clinical Information GI bleed Gross Description Received in formalin labeled with the patient's name, date of and ascending polyps are multiple heard tissues measuring 1.5 x 0.6 x 0.3 cm in aggregate. Entirely submitted in one cassette labeled A1. Microscopic Description Two H E slides reviewed. The microscopic examination confirms the diagnosis. CPT Codes 90169 Specimen: [id number] Received: 10/27/22 Status: TRAVIS Rereagan Num: [id number] Spec Type: Surgical Subm Dr: Joe Cosme MD Tissues: A Colon Biopsy (ASCND COL) Procedures: HE/2, Gross/Micro L4 Patient: Jacquelyn Kaplan [id number] (Continued) Signed (signatur e on file) Akshat-Ariel Dominguez MD 10/30/22 1331 [facility] No Panel InformationOrdered By: Joe Cosme on 10-27-2022 Bedside Glucose Comment Glu2: cleaned meter [facility] Office Visiton 10-18-2022 Follow-up visit [id number] Jacquelyn Kaplan 1945 F Date Provider Department Center 10/18/2022 3848-DEN BURNETT [facility] Family History Problem Relation Age of Onset Aortic stenosis Father Other Father Family Status - Relation Status Age at Father Level of Service:98994 OR OFFICE/OUTPATIENT ESTABLISHED MOD MDM 30-39 MIN Normal [facility] Outside Colonoscopyon 2022 Outside Colonoscopy [id number] B#1.00CD:127 Normal [facility] Report[facility] 10-16-2022 Lab Reports [id number] 6A#1.00CD:127 Normal [facility] [id number] D5#1.00CD:127 Normal [facility] [id number] 6#1.00CD:127 Normal [facility] [id number] 5#1.00CD:127 [facility] Outside Colonoscopyon 2022 Outside Colonoscopy [id number] 2#1.00CD:127 [facility] Consultation Noteon 10-13-19 Consultation Note [id number] 7F#1.00CD:127 [facility] Consultation Note [id number] 7#1.00CD:127 [facility] Lab Reportson 10-12-2022 Lab Reports [id number] 1#1.00CD:127 [facility] Office Visiton 09-22-2022 Follow-up visit [id number] Jacquelyn Kaplan 1945 F Date Provider Department Center 09/22/2022 367-JOLENE CARR EDEN [facility] Family History Problem Relation Age of Onset Aortic stenosis Father Other Father Family Status - Relation Status Age at Father Level of Service:16607 OR OFFICE/OUTPATIENT ESTABLISHED MOD MDM 30-39 MIN Reason for Visit and Comments: Follow-up [584038] - Patient is here today per Dr burnett request Valve Disorder [3372] [facility] 36on 08-14-2022 36 Pt called in requesting a refill [facility] Office Visiton 07-17-2022 Follow-up visit [id number] Che 1945 F Date Provider Department Center 07/17/2022 3848-DEN BURNETT [facility]EN [facility] Family History Problem Relation Age of Onset Aortic stenosis Father Other Father Family Status - Relation Status Age at Father Level of Service:85451 OR OFFICE/OUTPATIENT ESTABLISHED LOW MDM 20-29 MIN Normal [facility] CBC AUTO DIFFon 05-01-2022 BASO # 0.1 103/ul Normal 0.0-0.1 [facility] Comment on above: Performed By: #### C BC ####[facility] [address] [place] [address]Dr. Sguey Dominguez Basophils/100 WBC (Bld) 0.8 % Normal 0.2-2.0 [facility] Comment on above: Performed By: #### C BC ####[facility] [address] [place] [address]Dr. Sugey Dominguez EO # 0.2 103/ul Normal 0.0-0.7 [facility] Comment on above: Performed By: #### C BC ####[facility] [address] [place] [address]Dr. Sugey Dominguez Eosinophils/100 WBC (Bld) 3.5 % Normal 0.9-7.0 [facility] Comment on above: Performed By: #### C BC ####[facility] [address] [place] [address]Dr. Sugey Dominguez Erythrocyte distribution width (RBC) [Ratio] 13.6 % Normal 11.0-15.0 [facility] Comment on above: Performed By: #### C BC ####[facility] [address] [place] [address]Dr. Sugey Dominguez Hematocrit (Bld) [Volume fraction] 40.7 % Normal 36.0-48.0 [facility] Comment on above: Performed By: #### C BC ####[facility] [address] [place] [address]Dr. Sugey Dominguez Hemoglobin (Bld) [Mass/Vol] 13.5 g/dL Normal 12.0-16.0 [facility] Comment on above: Performed By: #### C BC ####[facility] [address] [place] [address]Dr. Sugey Dominguez IG # 0.03 10e3/ul Normal 0.00-0.03 [facility] Comment on above: Performed By: #### C BC ####[facility] [address] [place] [address]Dr. Sugey Dominguez IG % 0.5 % Normal 0.0-0.5 [facility] Comment on above: Performed By: #### C BC ####[facility] [address] [place] [address]Dr. Sugey Dominguez LYMPH # 1.5 103/ul Normal 1.2-3.8 [facility] Comment on above: Performed By: #### C BC ####[facility] [address] [place] [address]DrDarci Dominguez Lymphocytes/100 WBC (Bld) 23.1 % Normal 20.5-60.0 [facility] Comment on above: Performed By: #### C BC ####[facility] [address] [place], [place] [address]DrDarci Dominguez MANUAL DIFF REQ NO Normal [facility] Comment on above: Performed By: #### C BC ####[facility] [address] [place] [phone]. Sugey Dominguez MCH (RBC) [Entitic mass] 30.8 pg Normal 26.7-34.0 [facility] Comment on above: Performed By: #### C BC ####[facility] [address] [place] [phone]. Sugey Dominguez MCHC (RBC) [Mass/Vol] 33.2 g/dL Normal 29.9-35.2 [facility] Comment on above: Performed By: #### C BC ####[facility] [address] [place] [id number] Dominguez MCV (RBC) [Entitic vol] 92.7 fL Normal 81.0-99.0 [facility] Comment on above: Performed By: #### C BC ####[facility] [address] [place] [address]DrDarci Dominguez MONO # 0.4 103/ul Normal 0.3-0.8 [facility] Comment on above: Performed By: #### C BC ####[facility] [address] [place] [phone]. Sugey Dominguez Monocytes/100 WBC (Bld) 6.8 % Normal 1.7-12.0 [facility] Comment on above: Performed By: #### C BC ####[facility] [address] [place] [phone]. Sugey Dominguez NEUT # 4.2 103/ul Normal 1.4-6.5 [facility] Comment on above: Performed By: #### C BC ####[facility] [address] [place] [phone]. Sugey Dominguez Neutrophils/100 WBC (Bld) 65.3 % Normal 43.0-75.0 [facility] Comment on above: Performed By: #### C BC ####[facility] [address] [place] [phone]. Sugey Dominguez Platelet mean volume (Bld) [Entitic vol] 10.1 fL Normal 9.5-13.5 [facility] Comment on above: Performed By: #### C BC ####[facility] [address] [place] [phone]. Sugey Dominguez PLT 166 103/ul Normal 150-450 [facility] Comment on above: Performed By: #### C BC ####[facility] [address] [place] [phone]. Sugey Dominguez RBC 4.39 106/ul Normal 4.20-5.40 [facility] Comment on above: Performed By: #### C BC ####[facility] [address] [place] [phone]. Sugey Dominguez WBC 6.4 103/ul Normal 4.0-11.0 [facility] Comment on above: Performed By: #### C BC ####[facility] [address] [place] [phone]. Sugey Dominguez FREE T3on 05-01-2022 FREE T3 1.80 pg/mlL Critically low 2.18-3.98 [facility] Comment on above: Performed By: #### L IPID, FT3, TSH, LIVER, BMP #### [facility] [address] [place] [address] [address] Sugey Dominguez FREE T4on 05-01-2022 Free T4 [Mass/Vol] 1.40 ng/dL Normal 0.76-1.46 [facility] Comment on above: Performed By: #### F T4 #### [facility] [address] [place] [address] Dr. Sugey Dominguez GLYCOHEMOGLOBIN A1Con 2022 ADA RECOMMENDATION SEE BELOW Normal [facility] Comment on above: Result Comment: ADA RECOMMENDED LIMIT 4.0 - 6.0 ADA THERAPEUTIC TARGET < 7.0 ACTION SUGGESTED > 7.0 Performed By: #### A 1C #### [facility] [address] [place] [address] Dr. Sugey Dominguez Glucose [Mass/Vol] 174 mg/dL Normal [facility] Comment on above: Performed By: #### A 1C #### [facility] [address] [place] [address] Dr. Sugey Dominguez HbA1c (Bld) [Mass fraction] 7.7 % Critically high 4.5-6.2 [facility] Comment on above: Performed By: #### A 1C #### [facility] [address] [place] [address] Dr. Sugey Dominguez LIPID PROFILEon 05-01-2022 CHOL-HDL RATIO NORM SEE BELOW Normal [facility] Comment on above: Result Comment: 3.3 - 4.4 LOW RISK 4.4 - 7.1 AVERAGE RISK 7.1 - 11.0 MODERATE RISK >11.0 HIGH RISK Performed By: #### L IPID, FT3, TSH, LIVER, BMP #### [facility] [address] [place] [address] Dr. Sugey Dominguez Cholesterol [Mass/Vol] 176 mg/dL Normal <=200 Th [facility] Comment on above: Performed By: #### L IPID, FT3, TSH, LIVER, BMP #### [facility] [address] [place] [address] Dr. Sugey Dominguez Cholesterol in HDL [Mass/Vol] 48 mg/dL Normal 40-60 [facility] Comment on above: Performed By: #### L IPID, FT3, TSH, LIVER, BMP #### [facility] [address] [place] [address] [address] Sugey Dominguez Cholesterol in LDL [Mass/Vol] 80.4 mg/dL Normal [facility] Comment on above: Performed By: #### L IPID, FT3, TSH, LIVER, BMP #### [facility] [address] [place] [address] [address] Sugey Dominguez Cholesterol.total/Marina sterol in HDL [Mass ratio] 3.7 {ratio} Normal [facility] Comment on above: Performed By: #### L IPID, FT3, TSH, LIVER, BMP #### [facility] [address] [place] [address] [address] Sugey Dominguez HDL NORMAL > or = 60 mg/dl - LOW CARDIOVASCULAR RISK <40 mg/dl - HIGH CARDIOVASCULAR RISK Normal [facility] Comment on above: Performed By: #### L IPID, FT3, TSH, LIVER, BMP #### [facility] [address] [place] [address] [address] Sugey Dominguez LDL CALC NORMAL SEE BELOW Normal [facility] Comment on above: Result Comment: <100 mg/dl OPTIMAL 100 - 129 mg/dl NEAR OR ABOVE OPTIMAL 130 - 159 mg/dl BORDERLINE HIGH 160 - 189 mg/dl HIGH >190 mg/dl VERY HIGH Performed By: #### L IPID, FT3, TSH, LIVER, BMP #### [facility] [address] [address] [address] Sugey Dominguez Triglyceride [Mass/Vol] 238 mg/dL Critically high <=150 [facility] Comment on above: Performed By: #### L IPID, FT3, TSH, LIVER, BMP #### [facility] [address] [address] [address] Sugey Dominguez VLDL CALC 47.6 mg/dL Normal [facility] Comment on above: Performed By: #### L IPID, FT3, TSH, LIVER, BMP #### [facility] [address] [place] [address] Dr. Sugey Dominguez LIVER PROFILEon 05-01-2022 Albumin [Mass/Vol] 3.8 g/dL Normal 3.4-5.0 [facility] Comment on above: Performed By: #### L IPID, FT3, TSH, LIVER, BMP #### [facility] [address] [place] [address] Dr. Sugey Dominguez Albumin/Globulin [Mass ratio] 0.9 {ratio} Normal [facility] Comment on above: Performed By: #### L IPID, FT3, TSH, LIVER, BMP #### [facility] [address] [place] [address] Dr. Sugey Dominguez ALP [Catalytic activity/Vol] 81 U/L Normal 46-116 [facility] Comment on above: Performed By: #### L IPID, FT3, TSH, LIVER, BMP #### [facility] [address] [place] [address] Dr. Sugey Dominguez ALT [Catalytic activity/Vol] 23 U/L Normal 14-59 [facility] Comment on above: Performed By: #### L IPID, FT3, TSH, LIVER, BMP #### [facility] [address] [place] [address] Dr. Sugey Dominguez AST [Catalytic activity/Vol] 15 U/L Normal 15-37 [facility] Comment on above: Performed By: #### L IPID, FT3, TSH, LIVER, BMP #### [facility] [address] [place] [address] Dr. Sugey Dominguez BILI, CONJUGATED 0.2 mg/dL Normal 0.0-0.2 [facility] Comment on above: Performed By: #### L IPID, FT3, TSH, LIVER, BMP #### [facility] [address] [place] [address] Dr. Sugey Dominguez Bilirubin [Mass/Vol] 0.6 mg/dL Normal 0.2-1.0 [facility] Comment on above: Performed By: #### L IPID, FT3, TSH, LIVER, BMP #### [facility] [address] [place] [address] Dr. Sugey Dominguez Globulin (S) [Mass/Vol] 4.0 g/dL Normal [facility] Comment on above: Performed By: #### L IPID, FT3, TSH, LIVER, BMP #### [facility] [address] [place] [address] Dr. Sugey Dominguez Protein [Mass/Vol] 7.8 g/dL Normal 6.4-8.2 [facility] Comment on above: Performed By: #### L IPID, FT3, TSH, LIVER, BMP #### [facility] [address] [place] [address] Dr. Sugey Dominguez MICROALBUMIN, RAND URon 04-06 mALB <1.3 Normal <=30.0 [facility] Comment on above: Performed By: #### M ALBR #### [facility] [address] [place] [address] Dr. Sugey Dominguez PROF CHEM 8 (BAS METB)on Anion gap [Moles/Vol] 12.9 mmol/L Normal [facility] Comment on above: Performed By: #### L IPID, FT3, TSH, LIVER, BMP #### [facility] [address] [place] [address] Dr. Sugey Dominguez Calcium [Mass/Vol] 9.6 mg/dL Normal 8.5-10.1 [facility] Comment on above: Performed By: #### L IPID, FT3, TSH, LIVER, BMP #### [facility] [address] [place] [address] Dr. Sugey Dominguez Chloride [Moles/Vol] 96 mmol/L Critically low 98-107 [facility] Comment on above: Performed By: #### L IPID, FT3, TSH, LIVER, BMP #### [facility] [address] [place] [address] Dr. Sugey Dominguez CO2 [Moles/Vol] 30.8 mmol/L Normal 21.0-32.0 [facility] Comment on above: Performed By: #### L IPID, FT3, TSH, LIVER, BMP #### [facility] [address] [address] [address] Sugey Dominguez Creatinine [Mass/Vol] 1.74 mg/dL Critically high 0.55-1.02 [facility] Comment on above: Performed By: #### L IPID, FT3, TSH, LIVER, BMP #### [facility] [address] [place] [address] Dr. Sugey Dominguez EGFR-AF QATARI 35 mL/min/1.73m2 Critically low >=60 [facility] Comment on above: Performed By: #### L IPID, FT3, TSH, LIVER, BMP #### [facility] [address] [place] [address] Dr. Sugey Dominguez EGFR-NON AF QATARI 29 mL/min/1.73m2 Critically low >=60 [facility] Comment on above: Performed By: #### L IPID, FT3, TSH, LIVER, BMP #### [facility] [address] [address] [address] Sugey Dominguez Glucose [Mass/Vol] 195 mg/dL Critically high 74-106 T [facility] Comment on above: Performed By: #### L IPID, FT3, TSH, LIVER, BMP #### [facility] [address] [place] [address] Dr. Sugey Dominguez Potassium [Moles/Vol] 4.7 mmol/L Normal 3.5-5.1 [facility] Comment on above: Performed By: #### L IPID, FT3, TSH, LIVER, BMP #### [facility] [address] [place] [address] Dr. Sugey Dominguez Sodium [Moles/Vol] 135 mmol/L Critically low 136-145 Th [facility] Comment on above: Performed By: #### L IPID, FT3, TSH, LIVER, BMP #### [facility] [address] [place] [address] Dr. Sugey Dominguez Urea nitrogen [Mass/Vol] 47.0 mg/dL Critically high 7.0-18.0 [facility] Comment on above: Performed By: #### L IPID, FT3, TSH, LIVER, BMP #### [facility] [address] [address] [address] Sugey Dominguez Urea nitrogen/Creatinine [Mass ratio] 27.0 mg/mg Normal [facility] Comment on above: Performed By: #### L IPID, FT3, TSH, LIVER, BMP #### [facility] [address] [address] [address] Sugey Dominguez TSHon 05-01-2022 TSH 4.093 uIU/mL Critically high 0.358-3.740 [facility] Comment on above: Performed By: #### L IPID, FT3, TSH, LIVER, BMP #### [facility] [address] [address] [address] Sugey Dominguez GLYCOHEMOGLOBIN A1Con 2021 ADA RECOMMENDATION SEE BELOW Normal [facility] Comment on above: Result Comment: ADA RECOMMENDED LIMIT 4.0 - 6.0 ADA THERAPEUTIC TARGET < 7.0 ACTION SUGGESTED > 7.0 Performed By: #### A 1C ####[facility] [id number] [id number]. Sugey Dominguez Glucose [Mass/Vol] 183 mg/dL Normal [facility] Comment on above: Performed By: #### A 1C ####[facility] [address] [place], [place] [address]DbDarci Dominguez HbA1c (Bld) [Mass fraction] 8.0 % Critically high 4.5-6.2 [facility] Comment on above: Performed By: #### A 1C ####[facility] [address] [place], [place] [address]WtDr. Sugey Dominguez BASIC METABOLIC PANELon 03-08 Calcium mass conc 9.2 mg/dL Normal 8.6-10.3 The [facility] Comment on above: Order Comment: No: D o not add to previous draw Performed By: #### 3 0480 #### [facility] [address] [place] [address], [facility] Chloride molar conc 96 mmol/L Low 98-107 [facility] Comment on above: Order Comment: No: D o not add to previous draw Performed By: #### 3 5200 #### [facility] [address] [place] [address], [facility] CO2 molar conc 27 mmol/L Normal 21-31 [facility] Comment on above: Order Comment: No: D o not add to previous draw Performed By: #### 3 5200 #### [facility] [address] [place] [address], [facility] Creatinine mass conc 0.70 mg/dL Normal 0.60-1.20 The [facility] Comment on above: Order Comment: No: D o not add to previous draw Performed By: #### 3 5200 #### [facility] [address] [place] [address], [facility] GFR/1.73 sq M predicted among blacks MDRD vol rate/area (S/P/Bld) mL/min/{1.73_m2} Normal >60 The [facility] Comment on above: Order Comment: No: D o not add to previous draw Result Comment: Calc ulation may not be valid for patients over 70 years Performed By: #### 3 5200 #### [facility] [address] [place] [address], [facility] GFR/1.73 sq M predicted among non-blacks MDRD vol rate/area (S/P/Bld) mL/min/{1.73_m2} Normal >60 The [facility] Comment on above: Order Comment: No: D o not add to previous draw Result Comment: Calc ulation may not be valid for patients over 70 years Performed By: #### 3 5200 #### [facility] [address] [place] [address], [facility] Glucose mass conc 210 mg/dL High 70-100 [facility] Comment on above: Order Comment: No: D o not add to previous draw Performed By: #### 3 5200 #### [facility] [address] [place] [address], [facility] Potassium molar conc 4.0 mmol/L Normal 3.5-5.1 The [facility] Comment on above: Order Comment: No: D o not add to previous draw Performed By: #### 3 5200 #### [facility] [address] [place] [address], [facility] Sodium molar conc 133 mmol/L Low 136-145 [facility] Comment on above: Order Comment: No: D o not add to previous draw Performed By: #### 3 5200 #### [facility] [address] [place] [address], [facility] Urea nitrogen mass conc 20 mg/dL Normal 7-25 T he [facility] Comment on above: Order Comment: No: D o not add to previous draw Performed By: #### 3 5200 #### [facility] [address] CBC W/DIFFon 03-24-2018 ABS BASOPHILS 0.1 10*3/uL Normal 0.0-0.2 [facility] Comment on above: Order Comment: No: D o not add to previous draw Performed By: #### 3 5200 #### [facility] [address] [facility] [address] ABS IMM GRANS 0.1 10*3/uL Normal 0.0-0.2 [facility] Comment on above: Order Comment: No: D o not add to previous draw Performed By: #### 3 5200 #### [facility] [address] [place] [address], [facility] ABS NEUTROPHILS 4.7 10*3/uL Normal 1.6-7.6 The [facility] Comment on above: Order Comment: No: D o not add to previous draw Performed By: #### 3 5200 #### [facility] [address] Basophils #/vol (Bld) 1.1 % High 0.0-1.0 The [facility] Comment on above: Order Comment: No: D o not add to previous draw Performed By: #### 3 5200 #### [facility] [address] [place] [id number], [facility] Eosinophils #/vol (Bld) 0.3 10*3/uL Normal 0.0-0.5 The [facility] Comment on above: Order Comment: No: D o not add to previous draw Performed By: #### 3 5200 #### [facility] [address] [place] [address], [facility] Eosinophils/100 WBC (Bld) 3.3 % Normal 0.0-6.0 The [facility] Comment on above: Order Comment: No: D o not add to previous draw Performed By: #### 3 5200 #### [facility] [address] Erythrocyte distribution width Ratio (RBC) 16.2 % High 11.5-15.0 The [facility] Comment on above: Order Comment: No: D o not add to previous draw Performed By: #### 3 5200 #### [facility] [address] [place] [address], [facility] Hematocrit Volume Fraction (Bld) 42.5 % Normal 36.0-45.0 The [facility] Comment on above: Order Comment: No: D o not add to previous draw Performed By: #### 3 5200 #### [facility] [address] [place] [id number], [facility] Hemoglobin mass conc (Bld) 13.7 g/dL Normal 12.0-15.0 The [facility] Comment on above: Order Comment: No: D o not add to previous draw Performed By: #### 3 5200 #### [facility] [address] [place] [id number], [place] IMMATURE GRANS 0.8 % Normal 0.0-1.0 [facility] Comment on above: Order Comment: No: D o not add to previous draw Performed By: #### 3 5200 #### [facility] [address] [place] [address], [facility] Lymphocytes #/vol (Bld) 1.7 10*3/uL Normal 1.2-4.0 The [facility] Comment on above: Order Comment: No: D o not add to previous draw Performed By: #### 3 5200 #### [facility] [address] [place] [address], [facility] Lymphocytes/100 WBC (Bld) 22.1 % Normal 20.0-45.0 The [facility] Comment on above: Order Comment: No: D o not add to previous draw Performed By: #### 3 5200 #### [facility] [address] [facility] [place] [address], [facility] MCH Entitic mass (RBC) 30.0 pg Normal 27.0-33.0 Th e [facility] Comment on above: Order Comment: No: D o not add to previous draw Performed By: #### 3 5200 #### [facility] [address] [facility] [place] [address], [facility] MCHC mass conc (RBC) 32.2 g/dL Normal 32.0-35.0 The [facility] Comment on above: Order Comment: No: D o not add to previous draw Performed By: #### 3 5200 #### [facility] [address] [facility]. [place] [id number], [facility] MCV Entitic volume (RBC) 93.2 fL Normal 82.0-98.0 The [facility] Comment on above: Order Comment: No: D o not add to previous draw Performed By: #### 3 5200 #### [facility] [address] [place] [address], [facility] Monocytes #/vol (Bld) 0.7 10*3/uL Normal 0.1-1.0 Th e [facility] Comment on above: Order Comment: No: D o not add to previous draw Performed By: #### 3 5200 #### [facility] [address] [place] [address], [facility] MONOS 9.8 % Normal 5.0-12.0 The [facility] Comment on above: Order Comment: No: D o not add to previous draw Performed By: #### 3 5200 #### [facility] [address] [place] [address], [facility] Neutrophils/100 WBC (Bld) 62.9 % Normal 40.0-72.0 The [facility] Comment on above: Order Comment: No: D o not add to previous draw Performed By: #### 3 5200 #### [facility] [address] [place] [address], [facility] Nucleated RBC/100 WBC Ratio (Bld) 0 % Normal 0-0 The [facility] Comment on above: Order Comment: No: D o not add to previous draw Performed By: #### 3 5200 #### [facility] [address] [facility] [place] [address], [facility] PLAT CNT 188 10*3/uL Normal 150-400 The [facility] Comment on above: Order Comment: No: D o not add to previous draw Performed By: #### 3 5200 #### [facility] [address] [facility] [place] [address], [facility] RBC #/vol (Bld) 4.56 10*6/uL Normal 3.80-5.00 The [facility] Comment on above: Order Comment: No: D o not add to previous draw Performed By: #### 3 5200 #### [facility] [address] [place] [address], [facility] WBC #/vol (Bld) 7.48 10*3/uL Normal 4.00-10.60 The [facility] Comment on above: Order Comment: No: D o not add to previous draw Performed By: #### 3 5200 #### [facility] [address] [place] [address], [facility] POC GLUCOSE LABon 03-24-2018 Glucose mass conc 241 mg/dL High 70-100 The [facility] Comment on above: Performed By: #### 3 5200 #### [facility] [address] [place] [address], [facility] Glucose mass conc 189 mg/dL High 70-100 The [facility] Comment on above: Performed By: #### 3 5200 #### [facility] [address] [place] [address], [facility] BASIC METABOLIC PANELon 03-08 Calcium mass conc 9.1 mg/dL Normal 8.6-10.3 The [facility] Comment on above: Order Comment: No: D o not add to previous draw Performed By: #### 3 5200 #### [facility] [address] [place] [address], [facility] Chloride molar conc 95 mmol/L Low 98-107 The [facility] Comment on above: Order Comment: No: D o not add to previous draw Performed By: #### 3 5200 #### [facility] [address] [place] [address], [place] CO2 molar conc 32 mmol/L High 21-31 The [facility] Comment on above: Order Comment: No: D o not add to previous draw Performed By: #### 3 5200 #### [facility] [address] [place] [address], [place] Creatinine mass conc 0.71 mg/dL Normal 0.60-1.20 The [facility] Comment on above: Order Comment: No: D o not add to previous draw Performed By: #### 3 5200 #### [facility] [address] [place] [address], [place] GFR/1.73 sq M predicted among blacks MDRD vol rate/area (S/P/Bld) mL/min/{1.73_m2} Normal >60 The [facility] Comment on above: Order Comment: No: D o not add to previous draw Result Comment: Calc ulation may not be valid for patients over 70 years Performed By: #### 3 5200 #### [facility] [address] [place] [address], [facility] GFR/1.73 sq M predicted among non-blacks MDRD vol rate/area (S/P/Bld) mL/min/{1.73_m2} Normal >60 The [facility] Comment on above: Order Comment: No: D o not add to previous draw Result Comment: Calc ulation may not be valid for patients over 70 years Performed By: #### 3 5200 #### [facility] [address] [place] [address], [facility] Glucose mass conc 189 mg/dL High 70-100 The [facility] Comment on above: Order Comment: No: D o not add to previous draw Performed By: #### 3 5200 #### [facility] [address] [place] [address], [facility] Potassium molar conc 3.7 mmol/L Normal 3.5-5.1 [facility] Comment on above: Order Comment: No: D o not add to previous draw Performed By: #### 3 5200 #### [facility] [address] [place] [address], [place] Sodium molar conc 134 mmol/L Low 136-145 The [facility] Comment on above: Order Comment: No: D o not add to previous draw Performed By: #### 3 5200 #### [facility] [address] [place] [address], [place] Urea nitrogen mass conc 19 mg/dL Normal 7-25 T he [facility] Comment on above: Order Comment: No: D o not add to previous draw Performed By: #### 3 5200 #### [facility] [address] [place] [address], [facility] CBC COMPLETE BLOOD COUNTon 0 - Erythrocyte distribution width Ratio (RBC) 16.2 % High 11.5-15.0 The [facility] Comment on above: Order Comment: No: D o not add to previous draw Performed By: #### 3 5200 #### [facility] [address] [place] [address], [facility] Hematocrit Volume Fraction (Bld) 42.5 % Normal 36.0-45.0 The [facility] Comment on above: Order Comment: No: D o not add to previous draw Performed By: #### 3 5200 #### [facility] [address] [place] [address], [facility] Hemoglobin mass conc (Bld) 13.6 g/dL Normal 12.0-15.0 The [facility] Comment on above: Order Comment: No: D o not add to previous draw Performed By: #### 3 5200 #### [facility] [address] [place] [address], [facility] MCH Entitic mass (RBC) 29.9 pg Normal 27.0-33.0 Th e [facility] Comment on above: Order Comment: No: D o not add to previous draw Performed By: #### 3 5200 #### [facility] [address] [place] [address], [facility] MCHC mass conc (RBC) 32.0 g/dL Normal 32.0-35.0 The [facility] Comment on above: Order Comment: No: D o not add to previous draw Performed By: #### 3 5200 #### [facility] [address] [place] [address], [facility] MCV Entitic volume (RBC) 93.4 fL Normal 82.0-98.0 The [facility] Comment on above: Order Comment: No: D o not add to previous draw Performed By: #### 3 5200 #### [facility] [address] [place] [address], [facility] Nucleated RBC/100 WBC Ratio (Bld) 0 % Normal 0-0 The [facility] Comment on above: Order Comment: No: D o not add to previous draw Performed By: #### 3 5200 #### [facility] [address] [place] [address], [facility] PLAT CNT 198 10*3/uL Normal 150-400 The [facility] Comment on above: Order Comment: No: D o not add to previous draw Performed By: #### 3 5200 #### [facility] [address] [place] [address], [facility] RBC #/vol (Bld) 4.55 10*6/uL Normal 3.80-5.00 The [facility] Comment on above: Order Comment: No: D o not add to previous draw Performed By: #### 3 5200 #### [facility] [address] [place] [address], [facility] WBC #/vol (Bld) 7.49 10*3/uL Normal 4.00-10.60 The [facility] Comment on above: Order Comment: No: D o not add to previous draw Performed By: #### 3 5200 #### [facility] [address] POC GLUCOSE LABon 03-23-2018 Glucose mass conc 178 mg/dL High 70-100 The [facility] Comment on above: Performed By: #### 3 5200 #### [facility] [address] [place] [address], [facility] Glucose mass conc 163 mg/dL High 70-100 The [facility] Comment on above: Performed By: #### 3 5200 #### [facility] [address] [place] [address], [facility] Glucose mass conc 194 mg/dL High 70-100 The [facility] Comment on above: Performed By: #### 3 5200 #### [facility] [address] [place] [address], [facility] Glucose mass conc 164 mg/dL High 70-100 The [facility] Comment on above: Performed By: #### 3 5200 #### [facility] [address] [place] [address], [facility] BASIC METABOLIC PANELon - Calcium mass conc 9.0 mg/dL Normal 8.6-10.3 The [facility] Comment on above: Order Comment: No: D o not add to previous draw Performed By: #### 3 5200 #### [facility] [address] [place] [address], [facility] Chloride molar conc 95 mmol/L Low 98-107 The [facility] Comment on above: Order Comment: No: D o not add to previous draw Performed By: #### 3 5200 #### [facility] [address] [place] [address], [place] CO2 molar conc 36 mmol/L High 21-31 The [facility] Comment on above: Order Comment: No: D o not add to previous draw Performed By: #### 3 5200 #### [facility] [address] [place] [address], [facility] Creatinine mass conc 0.61 mg/dL Normal 0.60-1.20 The [facility] Comment on above: Order Comment: No: D o not add to previous draw Performed By: #### 3 5200 #### [facility] [address] [place] [address], [facility] GFR/1.73 sq M predicted among blacks MDRD vol rate/area (S/P/Bld) mL/min/{1.73_m2} Normal >60 The [facility] Comment on above: Order Comment: No: D o not add to previous draw Result Comment: Calc ulation may not be valid for patients over 70 years Performed By: #### 3 5200 #### [facility] [address] [place] [address], [facility] GFR/1.73 sq M predicted among non-blacks MDRD vol rate/area (S/P/Bld) mL/min/{1.73_m2} Normal >60 The [facility] Comment on above: Order Comment: No: D o not add to previous draw Result Comment: Calc ulation may not be valid for patients over 70 years Performed By: #### 3 5200 #### [facility] [address] [place] [address], [facility] Glucose mass conc 152 mg/dL High 70-100 [facility] Comment on above: Order Comment: No: D o not add to previous draw Performed By: #### 3 5200 #### [facility] [address] [place] [address], [facility] Potassium molar conc 3.5 mmol/L Normal 3.5-5.1 The [facility] Comment on above: Order Comment: No: D o not add to previous draw Performed By: #### 3 5200 #### [facility] [address] [place] [address], [place] Sodium molar conc 137 mmol/L Normal 136-145 [facility] Comment on above: Order Comment: No: D o not add to previous draw Performed By: #### 3 5200 #### [facility] [address] [place] [address], [facility] Urea nitrogen mass conc 17 mg/dL Normal 7-25 T [facility] Comment on above: Order Comment: No: D o not add to previous draw Performed By: #### 3 5200 #### [facility] [address] [place] [address], [facility] CBC COMPLETE BLOOD COUNTon 0 2- Erythrocyte distribution width Ratio (RBC) 16.2 % High 11.5-15.0 The [facility] Comment on above: Order Comment: No: D o not add to previous draw Performed By: #### 3 5200 #### [facility] [address] [place] [address], [facility] Hematocrit Volume Fraction (Bld) 42.6 % Normal 36.0-45.0 [facility] Comment on above: Order Comment: No: D o not add to previous draw Performed By: #### 3 5200 #### [facility] [address] [place] [address], [facility] Hemoglobin mass conc (Bld) 13.4 g/dL Normal 12.0-15.0 [facility] Comment on above: Order Comment: No: D o not add to previous draw Performed By: #### 3 5200 #### [facility] [address] [place] [address], [facility] MCH Entitic mass (RBC) 29.4 pg Normal 27.0-33.0 Th [facility] Comment on above: Order Comment: No: D o not add to previous draw Performed By: #### 3 5200 #### [facility] [address] [place] [address], [facility] MCHC mass conc (RBC) 31.5 g/dL Low 32.0-35.0 [facility] Comment on above: Order Comment: No: D o not add to previous draw Performed By: #### 3 5200 #### [facility] [address] [place] [address], [facility] MCV Entitic volume (RBC) 93.4 fL Normal 82.0-98.0 [facility] Comment on above: Order Comment: No: D o not add to previous draw Performed By: #### 3 5200 #### [facility] [address] [place] [address], [facility] Nucleated RBC/100 WBC Ratio (Bld) 0 % Normal 0-0 [facility] Comment on above: Order Comment: No: D o not add to previous draw Performed By: #### 3 5200 #### [facility] [address] [place] [address], [facility] PLAT CNT 197 10*3/uL Normal 150-400 The [facility] Comment on above: Order Comment: No: D o not add to previous draw Performed By: #### 3 5200 #### [facility] [address] [place] [address], [facility] RBC #/vol (Bld) 4.56 10*6/uL Normal 3.80-5.00 [facility] Comment on above: Order Comment: No: D o not add to previous draw Performed By: #### 3 5200 #### [facility] [address] [place] [address], [facility] WBC #/vol (Bld) 7.53 10*3/uL Normal 4.00-10.60 [facility] Comment on above: Order Comment: No: D o not add to previous draw Performed By: #### 3 5200 #### [facility] [address] [place] [address], [facility] POC GLUCOSE LABon 03-22-2018 Glucose mass conc 187 mg/dL High 70-100 [facility] Comment on above: Performed By: #### 3 5200 #### [facility] [address] [place] [address], [place] Glucose mass conc 161 mg/dL High 70-100 [facility] Comment on above: Performed By: #### 3 5200 #### [facility] [address] [place] [address], [place] Glucose mass conc 226 mg/dL High 70-100 [facility] Comment on above: Performed By: #### 3 5200 #### [facility] [address] [place] [address], [place] Glucose mass conc 175 mg/dL High 70-100 [facility] Comment on above: Performed By: #### 3 5200 #### [facility] [address] [place] [address], [place] Glucose mass conc 148 mg/dL High 70-100 [facility] Comment on above: Performed By: #### 3 5200 #### [facility] [address] [place] [address], [place] Glucose mass conc 191 mg/dL High 70-100 [facility] Comment on above: Performed By: #### 5 6101, 28564 #### [facility] [address] [place] [address], [place] BASIC METABOLIC PANELon 03-08 Calcium mass conc 9.1 mg/dL Normal 8.6-10.3 [facility] Comment on above: Order Comment: No: D o not add to previous draw Performed By: #### 5 610, 73248 #### [facility] [address] [place] [address], [place] Chloride molar conc 95 mmol/L Low 98-107 The [facility] Comment on above: Order Comment: No: D o not add to previous draw Performed By: #### 5 6101, 14387 #### [facility] [address] [place] [address], [place] CO2 molar conc 36 mmol/L High 21-31 [facility] Comment on above: Order Comment: No: D o not add to previous draw Performed By: #### 5 6101, 33842 #### [facility] [address] [place] [address], [place] Creatinine mass conc 0.68 mg/dL Normal 0.60-1.20 [facility] Comment on above: Order Comment: No: D o not add to previous draw Performed By: #### 5 6101, 88233 #### [facility] [address] [place] [address], [place] GFR/1.73 sq M predicted among blacks MDRD vol rate/area (S/P/Bld) mL/min/{1.73_m2} Normal >60 The [facility] Comment on above: Order Comment: No: D o not add to previous draw Result Comment: Calc ulation may not be valid for patients over 70 years Performed By: #### 5 6101, 33962 #### [facility] [address] [place] [address], [place] GFR/1.73 sq M predicted among non-blacks MDRD vol rate/area (S/P/Bld) mL/min/{1.73_m2} Normal >60 [facility] Comment on above: Order Comment: No: D o not add to previous draw Result Comment: Calc ulation may not be valid for patients over 70 years Performed By: #### 5 6101, 15910 #### [facility] [address] [place] [address], [place] Glucose mass conc 147 mg/dL High 70-100 [facility] Comment on above: Order Comment: No: D o not add to previous draw Performed By: #### 5 6101, 18092 #### [facility] [address] [place] [address], [place] Potassium molar conc 3.6 mmol/L Normal 3.5-5.1 [facility] Comment on above: Order Comment: No: D o not add to previous draw Performed By: #### 5 6101, 23816 #### [facility] [address] [place] [address], [place] Sodium molar conc 139 mmol/L Normal 136-145 [facility] Comment on above: Order Comment: No: D o not add to previous draw Performed By: #### 5 610, 85025 #### [facility] [address] [place] [address], [place] Urea nitrogen mass conc 14 mg/dL Normal 7-25 T he [facility] Comment on above: Order Comment: No: D o not add to previous draw Performed By: #### 5 610, 30764 #### [facility] [address] [place] [address], [facility] CBC COMPLETE BLOOD COUNTon 0 - Erythrocyte distribution width Ratio (RBC) 16.2 % High 11.5-15.0 [facility] Comment on above: Order Comment: No: D o not add to previous draw Performed By: #### 5 610, 49499 #### [facility] [address] [place] [address], [facility] Hematocrit Volume Fraction (Bld) 42.0 % Normal 36.0-45.0 [facility] Comment on above: Order Comment: No: D o not add to previous draw Performed By: #### 5 610, 01715 #### [facility] [address] [place] [address], [facility] Hemoglobin mass conc (Bld) 13.5 g/dL Normal 12.0-15.0 [facility] Comment on above: Order Comment: No: D o not add to previous draw Performed By: #### 5 6100, 86882 #### [facility] [address] [place] [address], [facility] MCH Entitic mass (RBC) 30.0 pg Normal 27.0-33.0 [facility] Comment on above: Order Comment: No: D o not add to previous draw Performed By: #### 5 610, 94402 #### [facility] [address] [place] [address], [facility] MCHC mass conc (RBC) 32.1 g/dL Normal 32.0-35.0 [facility] Comment on above: Order Comment: No: D o not add to previous draw Performed By: #### 5 610, 61395 #### [facility] [address] [place] [address], [place] MCV Entitic volume (RBC) 93.3 fL Normal 82.0-98.0 [facility] Comment on above: Order Comment: No: D o not add to previous draw Performed By: #### 5 610, 69594 #### [facility] [address] [place] [address], [facility] Nucleated RBC/100 WBC Ratio (Bld) 0 % Normal 0-0 [facility] Comment on above: Order Comment: No: D o not add to previous draw Performed By: #### 5 6100, 83910 #### [facility] [address] [place] [address], [facility] PLAT CNT 196 10*3/uL Normal 150-400 The [facility] Comment on above: Order Comment: No: D o not add to previous draw Performed By: #### 5 6100, 20567 #### [facility] [address] [place] [address], [facility] RBC #/vol (Bld) 4.50 10*6/uL Normal 3.80-5.00 [facility] Comment on above: Order Comment: No: D o not add to previous draw Performed By: #### 5 6100, 57038 #### [facility] [address] [place] [address], [facility] WBC #/vol (Bld) 7.89 10*3/uL Normal 4.00-10.60 [facility] Comment on above: Order Comment: No: D o not add to previous draw Performed By: #### 5 610, 50330 #### [facility] [address] [place] [address], [facility] POC GLUCOSE LABon 03-21-2018 Glucose mass conc 174 mg/dL High 70-100 [facility] Comment on above: Performed By: #### 5 610, 42648 #### [facility] [address] [place] [address], [facility] Glucose mass conc 129 mg/dL High 70-100 [facility] Comment on above: Performed By: #### 5 610, 31847 #### [facility] [address] [place] [address], [place] Glucose mass conc 280 mg/dL High 70-100 [facility] Comment on above: Performed By: #### 5 610, 95699 #### [facility] [address] [place] [address], [place] BASIC METABOLIC PANELon 03-08 Calcium mass conc 9.2 mg/dL Normal 8.6-10.3 [facility] Comment on above: Order Comment: No: D o not add to previous draw Performed By: #### 5 610, 73649 #### [facility] [address] [place] [address], [place] Chloride molar conc 96 mmol/L Low 98-107 [facility] Comment on above: Order Comment: No: D o not add to previous draw Performed By: #### 5 610, 83567 #### [facility] [address] [place] [address], [facility] CO2 molar conc 33 mmol/L High 21-31 [facility] Comment on above: Order Comment: No: D o not add to previous draw Performed By: #### 5 610, 70240 #### [facility] [address] [place] [address], [place] Creatinine mass conc 0.69 mg/dL Normal 0.60-1.20 [facility] Comment on above: Order Comment: No: D o not add to previous draw Performed By: #### 5 610, 50427 #### [facility] [address] [place] [address], [place] GFR/1.73 sq M predicted among blacks MDRD vol rate/area (S/P/Bld) mL/min/{1.73_m2} Normal >60 The [facility] Comment on above: Order Comment: No: D o not add to previous draw Result Comment: Calc ulation may not be valid for patients over 70 years Performed By: #### 5 6101, 66094 #### [facility] [address] [place] [address], [facility] GFR/1.73 sq M predicted among non-blacks MDRD vol rate/area (S/P/Bld) mL/min/{1.73_m2} Normal >60 [facility] Comment on above: Order Comment: No: D o not add to previous draw Result Comment: Calc ulation may not be valid for patients over 70 years Performed By: #### 5 6101, 28792 #### [facility] [address] [place] [address], [facility] Glucose mass conc 134 mg/dL High 70-100 [facility] Comment on above: Order Comment: No: D o not add to previous draw Performed By: #### 5 610, 51430 #### [facility] [address] [place] [address], [place] Potassium molar conc 4.1 mmol/L Normal 3.5-5.1 [facility] Comment on above: Order Comment: No: D o not add to previous draw Performed By: #### 5 6101, 37683 #### [facility] [address] [place] [address], [place] Sodium molar conc 137 mmol/L Normal 136-145 [facility] Comment on above: Order Comment: No: D o not add to previous draw Performed By: #### 5 6101, 88048 #### [facility] [address] [place] [address], [place] Urea nitrogen mass conc 13 mg/dL Normal 7-25 T [facility] Comment on above: Order Comment: No: D o not add to previous draw Performed By: #### 5 6101, 92477 #### [facility] [address] [place] [address], [place] MAGNESIUM BLOODon 03-20-2018 Magnesium mass conc 1.9 mg/dL Normal 1.9-2.7 [facility] Comment on above: Order Comment: No: D o not add to previous draw Performed By: #### 5 6101, 91434 #### [facility] [address] [place] [address], [facility] POC GLUCOSE LABon 03-20-2018 Glucose mass conc 109 mg/dL High 70-100 [facility] Comment on above: Performed By: #### 5 610, 77327 #### [facility] [address] [place] [address], [facility] Glucose mass conc 194 mg/dL High 70-100 [facility] Comment on above: Performed By: #### 5 610, 03544 #### [facility] [address] [place] [address], [facility] Glucose mass conc 119 mg/dL High 70-100 [facility] Comment on above: Performed By: #### 5 610, 61081 #### [facility] [address] [place] [address], [facility] Glucose mass conc 203 mg/dL High 70-100 [facility] Comment on above: Performed By: #### 5 6101, 31029 #### [facility] [address] [place] [address], [facility] APTTon 03-19-2018 aPTT Coag time (Bld) 32.1 s Normal 25.0-35.0 [facility] Comment on above: Order Comment: No: D o not add to previous draw Result Comment: ALL RESULTS MUST BE INTERPRETED WITH RESPECT TO BLOOD DRAWING ARTIFACT OR DILUTION ERROR OF ANTICOAGULANT AT THE TIME OF SAMPLING. THE APTT SHOULD NOT BE USED TO MONITOR UNFRACTIONATED HEPARIN THERAPY, THIS LABORATORY NO LONGER HAS AN ESTABLISHED THERAPEUTIC RANGE BASED ON THE APTT. IT IS RECOMMENDED THAT THE [facility] - HEPARIN ASSAY (ANTI-XA ACTIVITY) BE USED FOR THIS PURPOSE. Performed By: #### 5 6101, 40039 #### [facility] [address] [place] [address], [place] BASIC METABOLIC PANELon 03-08 Calcium mass conc 9.2 mg/dL Normal 8.6-10.3 [facility] Comment on above: Order Comment: No: D o not add to previous draw Performed By: #### 5 6101, 58236 #### [facility] [address] [place] [address], [place] Chloride molar conc 95 mmol/L Low 98-107 [facility] Comment on above: Order Comment: No: D o not add to previous draw Performed By: #### 5 6101, 50194 #### [facility] [address] [place] [address], [place] CO2 molar conc 34 mmol/L High 21-31 [facility] Comment on above: Order Comment: No: D o not add to previous draw Performed By: #### 5 6101, 93979 #### [facility] [address] [place] [address], [place] Creatinine mass conc 0.55 mg/dL Low 0.60-1.20 [facility] Comment on above: Order Comment: No: D o not add to previous draw Performed By: #### 5 6101, 37285 #### [facility] [address] [place] [address], [place] GFR/1.73 sq M predicted among blacks MDRD vol rate/area (S/P/Bld) mL/min/{1.73_m2} Normal >60 [facility] Comment on above: Order Comment: No: D o not add to previous draw Result Comment: Calc ulation may not be valid for patients over 70 years Performed By: #### 5 6101, 97174 #### [facility] [address] [place] [address], [place] GFR/1.73 sq M predicted among non-blacks MDRD vol rate/area (S/P/Bld) mL/min/{1.73_m2} Normal >60 [facility] Comment on above: Order Comment: No: D o not add to previous draw Result Comment: Calc ulation may not be valid for patients over 70 years Performed By: #### 5 6101, 09606 #### [facility] [address] [place] [address], [facility] Glucose mass conc 136 mg/dL High 70-100 [facility] Comment on above: Order Comment: No: D o not add to previous draw Performed By: #### 5 610, 94922 #### [facility] [address] [place] [address], [facility] Potassium molar conc 3.4 mmol/L Low 3.5-5.1 [facility] Comment on above: Order Comment: No: D o not add to previous draw Performed By: #### 5 6101, 79748 #### [facility] [address] [place] [id number], [facility] Sodium molar conc 137 mmol/L Normal 136-145 [facility] Comment on above: Order Comment: No: D o not add to previous draw Performed By: #### 5 6101, 38514 #### [facility] [address] [place] [address], [facility] Urea nitrogen mass conc 11 mg/dL Normal 7-25 T he [facility] Comment on above: Order Comment: No: D o not add to previous draw Performed By: #### 5 6101, 34143 #### [facility] [address] [place] [id number], [facility] CBC W/DIFFon 03-19-2018 ABS BASOPHILS 0.1 10*3/uL Normal 0.0-0.2 [facility] Comment on above: Order Comment: No: D o not add to previous draw Performed By: #### 5 6101, 97120 #### [facility] [address] ABS IMM GRANS 0.1 10*3/uL Normal 0.0-0.2 [facility] Comment on above: Order Comment: No: D o not add to previous draw Performed By: #### 5 6100, 90304 #### [facility] [address] [place] [address], [facility] ABS NEUTROPHILS 6.1 10*3/uL Normal 1.6-7.6 The [facility] Comment on above: Order Comment: No: D o not add to previous draw Performed By: #### 5 6100, 35851 #### [facility] [address] [place] [address], [facility] Basophils #/vol (Bld) 0.8 % Normal 0.0-1.0 [facility] Comment on above: Order Comment: No: D o not add to previous draw Performed By: #### 5 6100, 39637 #### [facility] [address] [place] [address], [facility] Eosinophils #/vol (Bld) 0.2 10*3/uL Normal 0.0-0.5 [facility] Comment on above: Order Comment: No: D o not add to previous draw Performed By: #### 5 6100, 87409 #### [facility] [address] [address], [facility] Eosinophils/100 WBC (Bld) 1.9 % Normal 0.0-6.0 [facility] Comment on above: Order Comment: No: D o not add to previous draw Performed By: #### 5 6100, 54300 #### [facility] [address] [place] [address], [facility] Erythrocyte distribution width Ratio (RBC) 16.4 % High 11.5-15.0 [facility] Comment on above: Order Comment: No: D o not add to previous draw Performed By: #### 5 6100, 88429 #### [facility] [address] Hematocrit Volume Fraction (Bld) 43.7 % Normal 36.0-45.0 [facility] Comment on above: Order Comment: No: D o not add to previous draw Performed By: #### 5 6100, 60242 #### [facility] [address] [place] [address], [facility] Hemoglobin mass conc (Bld) 14.0 g/dL Normal 12.0-15.0 [facility] Comment on above: Order Comment: No: D o not add to previous draw Performed By: #### 5 6100, 93384 #### [facility] [address] [facility] [facility] [place] [address], [facility] IMMATURE GRANS 0.7 % Normal 0.0-1.0 [facility] Comment on above: Order Comment: No: D o not add to previous draw Performed By: #### 5 6100, 75437 #### [facility] [address] [facility] [place] [place] [address], [facility] Lymphocytes #/vol (Bld) 1.7 10*3/uL Normal 1.2-4.0 [facility] Comment on above: Order Comment: No: D o not add to previous draw Performed By: #### 5 6100, 81800 #### [facility] [address] [place] [place] [address], [facility] Lymphocytes/100 WBC (Bld) 19.1 % Low 20.0-45.0 [facility] Comment on above: Order Comment: No: D o not add to previous draw Performed By: #### 5 6100, 58537 #### [facility] [address] [facility] [place] [place] [address], [facility] MCH Entitic mass (RBC) 29.5 pg Normal 27.0-33.0 [facility] Comment on above: Order Comment: No: D o not add to previous draw Performed By: #### 5 6100, 17264 #### [facility] [address] [place] [address], [facility] MCHC mass conc (RBC) 32.0 g/dL Normal 32.0-35.0 [facility] Comment on above: Order Comment: No: D o not add to previous draw Performed By: #### 5 610, 85817 #### [facility] [address] [place] [id number], [facility] MCV Entitic volume (RBC) 92.0 fL Normal 82.0-98.0 [facility] Comment on above: Order Comment: No: D o not add to previous draw Performed By: #### 5 6100, 73800 #### [facility] [address] [place] [address], [facility] Monocytes #/vol (Bld) 0.6 10*3/uL Normal 0.1-1.0 [facility] Comment on above: Order Comment: No: D o not add to previous draw Performed By: #### 5 6100, 80829 #### [facility] [address] [place] [address], [facility] MONOS 7.0 % Normal 5.0-12.0 [facility] Comment on above: Order Comment: No: D o not add to previous draw Performed By: #### 5 6100, 51807 #### [facility] [address] [place] [address], [facility] Neutrophils/100 WBC (Bld) 70.5 % Normal 40.0-72.0 [facility] Comment on above: Order Comment: No: D o not add to previous draw Performed By: #### 5 610, 56786 #### [facility] [address] [place] [id number], [facility] Nucleated RBC/100 WBC Ratio (Bld) 0 % Normal 0-0 [facility] Comment on above: Order Comment: No: D o not add to previous draw Performed By: #### 5 610, 47018 #### [facility] PLAT CNT 200 10*3/uL Normal 150-400 The [facility] Comment on above: Order Comment: No: D o not add to previous draw Performed By: #### 5 6101, 87274 #### [address] RBC #/vol (Bld) 4.75 10*6/uL Normal 3.80-5.00 [facility] Comment on above: Order Comment: No: D o not add to previous draw Performed By: #### 5 6101, 85605 #### [address] WBC #/vol (Bld) 8.62 10*3/uL Normal 4.00-10.60 [facility] Comment on above: Order Comment: No: D o not add to previous draw Performed By: #### 5 6101, 54090 #### [address] CHEST AND LATERALon 03-19-19 19 CHEST AND LATERAL [facility] Department of Radiology [address] [place] [address] Patient Name: JACQUELYN KAPLAN : 1945 Sex: F Age: Race: White Pt. Location: [id number] Patient Status: I Ordered Date: 03/19/2018 12:15:00 AM Completed Date: 03/19/2018 05:56 AM Requesting Provider: JAGUAR JOHN Attending Provider: BERNADETTE, HERNANDEZ R Report Copy To: Signs & Symptoms: Shortness of Breath History: Patient history not available Comments: R/O Cardiomegaly Exam: CHEST AND LATERAL CHEST AND LATERAL 03/19/2018 5:56 AM EST SIGNS AND SYMPTOMS: Shortness of Breath TECHNOLOGIST COMMENTS: short of breath QUESTION FOR THE RADIOLOGIST: R/O Cardiomegaly PROTOCOL: AP(PA) and Lateral views were obtained. COMPARISON: March 16 (outside study) FINDINGS: Heart is enlarged. Mediastinum unremarkable. Mild interstitial pulmonary edema is seen definite improvement from previous examination consistent with resolving CHF. Small left pleural effusion. IMPRESSION: Improving CHF. Chronic cardiomegaly. Electronically signed by:Shankar Nicolas. Transcribed by: [email or web address], User Resident: Electronically Signed by: SHANKAR NICOLAS @ 03/19/2018 08:20 AM Normal [facility] Comment on above: Order Comment: No: D o not add to previous draw COMP METABOLIC PANELon 03-19 Albumin mass conc 3.3 g/dL Low 3.5-5.7 [facility] Comment on above: Order Comment: No: D o not add to previous draw Performed By: #### 5 6101, 91795 #### [facility] [address] [facility] [place] [address], [facility] ALKALINE PHOSPH 58 IU/L Normal 34-104 The [facility] Comment on above: Order Comment: No: D o not add to previous draw Performed By: #### 5 6101, 07479 #### [facility] [address] [facility] [place] [address], [facility] ALT enzyme act/vol 28 U/L Normal 7-52 [facility] Comment on above: Order Comment: No: D o not add to previous draw Performed By: #### 5 6101, 20373 #### [facility] [address] [place] [address], [place] AST enzyme act/vol 22 U/L Normal 13-39 The [facility] Comment on above: Order Comment: No: D o not add to previous draw Performed By: #### 5 610, 89580 #### [facility] [address] [place] [address], [place] Bilirubin mass conc 1.9 mg/dL High 0.3-1.0 The [facility] Comment on above: Order Comment: No: D o not add to previous draw Performed By: #### 5 610, 84870 #### [facility] [address] [place] [address], [place] Calcium mass conc 9.0 mg/dL Normal 8.6-10.3 [facility] Comment on above: Order Comment: No: D o not add to previous draw Performed By: #### 5 610, 50529 #### [facility] [address] [place] [address], [place] Chloride molar conc 94 mmol/L Low 98-107 [facility] Comment on above: Order Comment: No: D o not add to previous draw Performed By: #### 5 610, 94846 #### [facility] [address] [place] [address], [place] CO2 molar conc 36 mmol/L High 21-31 [facility] Comment on above: Order Comment: No: D o not add to previous draw Performed By: #### 5 610, 91885 #### [facility] [address] [place] [address], [place] Creatinine mass conc 0.61 mg/dL Normal 0.60-1.20 [facility] Comment on above: Order Comment: No: D o not add to previous draw Performed By: #### 5 610, 69937 #### [facility] [address] [place] [address], [facility] GFR/1.73 sq M predicted among blacks MDRD vol rate/area (S/P/Bld) mL/min/{1.73_m2} Normal >60 The [facility] Comment on above: Order Comment: No: D o not add to previous draw Result Comment: Calc ulation may not be valid for patients over 70 years Performed By: #### 5 6101, 40081 #### [facility] [address] [place] [address], [place] GFR/1.73 sq M predicted among non-blacks MDRD vol rate/area (S/P/Bld) mL/min/{1.73_m2} Normal >60 The [facility] Comment on above: Order Comment: No: D o not add to previous draw Result Comment: Calc ulation may not be valid for patients over 70 years Performed By: #### 5 6101, 11825 #### [facility] [address] [place] [address], [facility] Glucose mass conc 210 mg/dL High 70-100 [facility] Comment on above: Order Comment: No: D o not add to previous draw Performed By: #### 5 6101, 86157 #### [facility] [address] [place] [address], [place] Potassium molar conc 3.3 mmol/L Low 3.5-5.1 [facility] Comment on above: Order Comment: No: D o not add to previous draw Performed By: #### 5 6101, 49875 #### [facility] [address] [place] [address], [place] Protein mass conc 6.3 g/dL Normal 6.0-8.3 [facility] Comment on above: Order Comment: No: D o not add to previous draw Performed By: #### 5 6101, 25307 #### [facility] [address] [place] [address], [place] Sodium molar conc 137 mmol/L Normal 136-145 [facility] Comment on above: Order Comment: No: D o not add to previous draw Performed By: #### 5 6101, 68655 #### [facility] [address] [facility]. [address] Urea nitrogen mass conc 11 mg/dL Normal 7-25 T [facility] Comment on above: Order Comment: No: D o not add to previous draw Performed By: #### 5 6101, 26116 #### [facility] [address] History and Physicalon 03-19 History and Physical MR#: [id number] [facility] Pt. Name: Jacquelyn Kaplan Admitted: 03/18/2018 Date of : 1945 Attending Physician: Jaguar John MD Room #: 3AB [id number] Discharge Date: HISTORY AND PHYSICAL The patient was seen at 11:30 p.m. on March 18, 2018. CHIEF COMPLAINT: Shortness of breath, pulmonary edema, heart failure, aortic stenosis. HISTORY OF PRESENT ILLNESS: The patient is a 72-year-old female who started to develop severe shortness of breath on Sunday night. She stated she began to develop it suddenly and was diaphoretic, was having difficulty catching her breath and speaking in complete sentences. Her daughter is a nurse and her son-in-law is a medicare sales representative and they took her to the ED. She was admitted to [facility] where she was found to be in pulmonary edema, had severely elevated BNP level and was initially treated with BiPAP overnight. She also was diuresed. She states that she has been more comfortable since yesterday and she has been on supplemental oxygen with her oxygen requirement being titrated down. George had significantly swollen legs as well, which have improved and presently are at baseline as per the patient. She did not have any chest pain or palpitations. She is denying fevers or chills. She is having a nonproductive cough. She was having orthopnea and paroxysmal nocturnal dyspnea. She is denying abdominal pain, nausea, vomiting, melena or rectal bleeding. Denies any new rashes or lesions. She is denying dysuria, urinary frequency, urgency, weakness or numbness. She was admitted atrial fibrillation with RVR and was found to have aortic stenosis during her last hospitalization here at [facility] earlier this month. There was a discussion with Cardiology service about aortic valve replacement, whether to have TAVR versus open heart surgery and that decision has not been made yet. She was supposed to follow up with our Cardiology service next week. Transfer was initiated from [place] for further evaluation from our Cardiology service and also due to concern at [place] whether she needed urgent valve replacement done for her aortic stenosis given her cardiopulmonary status. PAST MEDICAL HISTORY: Severe aortic stenosis, heart failure with reduced ejection fraction, hypothyroidism, type 2 diabetes mellitus, diabetic neuropathy, Charcot joints, hypertension, osteoarthritis, left lateral malleolus unstageable pressure ulcer and venous ulcers. PAST SURGICAL HISTORY: Lower back surgery, bilateral knee replacement. SOCIAL HISTORY: She is a nonsmoker. Rarely drinks alcohol. No recreational drug use. Lives alone. She is . a year and a half ago. FAMILY HISTORY: Parents are both . Mom of pancreatic cancer. Dad had esophageal cancer, renal cancer and also had an aortic valve replacement. HOME MEDICATIONS: Amiodarone 400 mg p.o. daily, Eliquis 5 mg p.o. q.12 hours, ascorbic acid 500 mg p.o. daily, aspirin 81 mg p.o. daily, Bumex 0.5 mg p.o. daily, Citracal with vitamin D 315 mg-250 units tablet p.o. b.i.d., carvedilol 6.25 mg p.o. q.12 hours, vitamin D3 at 5000 units p.o. b.i.d., cyclobenzaprine 10 mg p.o. daily p.r.n., diclofenac sodium 75 mg p.o. b.i.d., fluticasone 50 mcg 2 sprays b.i.d., gabapentin 100 mg p.o. q.12 hours, glipizide 5 mg p.o. b.i.d., levothyroxine 125 mcg p.o. daily, lisinopril 10 mg p.o. daily, metformin 500 mg p.o. daily, adult multivitamin p.o. daily, potassium chloride 10 mEq p.o. daily. Simvastatin 80 mg p.o. daily. Vitamin B complex p.o. daily. Vitamin E 400 units p.o. daily. ALLERGIES: Sulfa. REVIEW OF SYSTEMS: A 14-point review of system was performed. All pertinent positives and negatives are mentioned in the HPI. The remainder of systems otherwise negative. PHYSICAL EXAMINATION: GENERAL APPEARANCE: The patient is an elderly obese female, presently appears to be in no acute distress. Awake, alert, seated in bed, is comfortable. VITAL SIGNS: Temperature 98.8, heart rate 73, respiratory rate 23, blood /88, pulse ox 99% 2L NC. EYES: Pupils are equal, round, reactive to light and accommodation. Extraocular movements are intact. No conjunctival pallor. ENMT: External appearance of the ears unremarkable. Hearing is normal. Mucous membranes moist. No abnormalities in oropharynx. NECK: Supple. No JVD. RESPIRATORY: Lungs are clear to auscultation. Normal respiratory effort. CARDIOVASCULAR: Normal heart sounds. Regular rate and rhythm. Systolic murmur auscultated, most prominent at the right sternal border. Peripheral pulses are palpable and symmetric. ABDOMEN: Soft, obese, nontender. Bowel sounds normal. Normoactive. No guarding or rebound tenderness. EXTREMITIES: The patient has leg ulcer. The patient's lower extremities are Ayden wrapped presently. She has 2+ pitting edema in the lower extremities bilaterally. SKIN: Warm and dry. No rashes noted. PSYCHIATRIC: The patient's recent and remote memory intact. She is alert and oriented x3. LAB STUDIES: From [facility], March 18, 2018. CBC; WBC 7.4, hemoglobin 12.7, hematocrit 39.2, platelet count 174. BMP: Sodium 142, potassium 3.3, chloride 101, bicarb 34.7, BUN 12, creatinine 0.71, calcium 8.5, glucose 93. The patient had BNP of 16,271 on March 16, 2018, when she initially presented. It appears that cardiac enzymes are negative. Chest x-ray is reported to be showing pulmonary edema from [place], but no images were sent over with the patient and no report is available to review. ASSESSMENT: 1. Acute respiratory failure with pulmonary edema, now resolved. The patient no longer requiring BiPAP and has stable oxygenation on supplemental O2 as needed. 2. Severe aortic stenosis. 3. Heart failure with reduced ejection fraction, acute on chronic. 4. Hypokalemia. 5. Type 2 diabetes mellitus. 6. Hypothyroidism. 7. Hypertension. 8. Atrial fibrillation, on amio and Eliquis. PLAN: The patient will be admitted to the Medicine Service in step-down. We will consult Cardiology for recommendations with regard to management of her aortic stenosis. We will continue to diurese her intravenously for now, I'm presuming her home diuretic dose will need to be adjusted. Home medications have been reviewed and reconciled. We will start her on insulin sliding scale and hold her oral hypoglycemics for now. She is on Eliquis. Does not require any additional pharmacologic DVT prophylaxis. The patient will be kept n.p.o. for now. Potassium will be repleted. We will check labs in the morning. The patient is DNR-CCA, this has been verified with her. Electronically Signed by: Jaguar John MD 03/19/2018 05:56 A Jgauar John MD Date Dict: 03/19/2018/12:11 A/Jaguar John MD Date Trans: 03/19/2018 01:05 A/jerri [id number] Normal [facility] MAGNESIUM BLOODon 03-19-2018 Magnesium mass conc 1.8 mg/dL Low 1.9-2.7 [facility] Comment on above: Order Comment: Yes: Add to Previous draw if able Performed By: #### 3 3240, 07325, 24040, 10031 #### [facility] [address] [place] [address], [place] POC GLUCOSE LABon 03-19-2018 Glucose mass conc 260 mg/dL High 70-100 [facility] Comment on above: Performed By: #### 5 3981, 17788 #### [facility] [address] [place] [address], [place] Glucose mass conc 200 mg/dL High 70-100 [facility] Comment on above: Performed By: #### 5 6101, 75601 #### [facility] [address] [place] [address], [facility] Glucose mass conc 130 mg/dL High 70-100 [facility] Comment on above: Performed By: #### 3 5200, 66143, 63635, 29003 #### [facility] [address] [place] [address], [facility] Glucose mass conc 112 mg/dL High 70-100 [facility] Comment on above: Performed By: #### 3 5200, 77558, 63467, 68651 #### [facility] [address] [facility]. [address] PROTHROMBIN TIMEon 9 INR Coag RelTime (PPP) 1.19 {INR} High 0.91-1.16 Th e [facility] Comment on above: Order Comment: No: D o not add to previous draw Result Comment: ACCC P RECOMMENDED INR FOR WARFARIN THERAPY ------- CONDITION INR PROPHYLAXIS OF VENOUS THROMBOSIS 2-3 (HIGH-RISK SURGERY) TREATMENT OF VENOUS THROMBOSIS 2-3 TREATMENT OF PULMONARY EMBOLISM 2-3 PREVENTION OF SYSTEMIC EMBOLISM: 2-3 ACUTE MYOCARDIAL INFARCTION TISSUE HEART VALVES VALVULAR HEART DISEASE ATRIAL FIBRILLATION RECURRENT SYSTEMIC EMBOLISM MECHANICAL HEART VALVE 2.5-3.5 FROM: ORAL ANTICOAGULANTS. MECHANISM OF ACTION, CLINICAL EFFECTIVENESS, AND OPTIMAL THERAPEUTIC RANGE. CHEST 1995;108:231S-246S. Performed By: #### 5 6101, 92349 #### [facility] [address] Prothrombin time (PT) Coag time (PPP) 15.1 s High 12.3-14.8 [facility] Comment on above: Order Comment: No: D o not add to previous draw Result Comment: ALL RESULTS MUST BE INTERPRETED WITH RESPECT TO BLOOD DRAWING ARTIFACT OR DILUTION ERROR OF ANTICOAGULANT AT THE TIME OF SAMPLING. Performed By: #### 5 6101, 00620 #### [facility] [address] APTTon 03-13-2018 aPTT Coag time (Bld) 52.4 s High 25.0-35.0 [facility] Comment on above: Order Comment: Yes: Add to Previous draw if able Result Comment: ALL RESULTS MUST BE INTERPRETED WITH RESPECT TO BLOOD DRAWING ARTIFACT OR DILUTION ERROR OF ANTICOAGULANT AT THE TIME OF SAMPLING. THE APTT SHOULD NOT BE USED TO MONITOR UNFRACTIONATED HEPARIN THERAPY, THIS LABORATORY NO LONGER HAS AN ESTABLISHED THERAPEUTIC RANGE BASED ON THE APTT. IT IS RECOMMENDED THAT THE UFH - HEPARIN ASSAY (ANTI-XA ACTIVITY) BE USED FOR THIS PURPOSE. CLINICAL SIGNIFICANCE OF THE PTT RESULT IS QUESTIONABLE IN THE PRESENCE OF HEPARIN. CLINICAL SIGNIFICANCE OF THE PTT RESULT IS QUESTIONABLE IN THE PRESENCE OF HEPARIN. Performed By: #### 3 5200, 51884, 42012, 41545 #### [facility] [address] aPTT Coag time (Bld) 56.9 s High 25.0-35.0 [facility] Comment on above: Order Comment: Yes: Add to Previous draw if able Result Comment: ALL RESULTS MUST BE INTERPRETED WITH RESPECT TO BLOOD DRAWING ARTIFACT OR DILUTION ERROR OF ANTICOAGULANT AT THE TIME OF SAMPLING. THE APTT SHOULD NOT BE USED TO MONITOR UNFRACTIONATED HEPARIN THERAPY, THIS LABORATORY NO LONGER HAS AN ESTABLISHED THERAPEUTIC RANGE BASED ON THE APTT. IT IS RECOMMENDED THAT THE UFH - HEPARIN ASSAY (ANTI-XA ACTIVITY) BE USED FOR THIS PURPOSE. CLINICAL SIGNIFICANCE OF THE PTT RESULT IS QUESTIONABLE IN THE PRESENCE OF HEPARIN. Performed By: #### 3 5200, 04306, 59201, 69269 #### [facility] [address] [place] [address], [facility] aPTT Coag time (Bld) 53.6 s High 25.0-35.0 [facility] Comment on above: Order Comment: Yes: Add to Previous draw if able Result Comment: ALL RESULTS MUST BE INTERPRETED WITH RESPECT TO BLOOD DRAWING ARTIFACT OR DILUTION ERROR OF ANTICOAGULANT AT THE TIME OF SAMPLING. THE APTT SHOULD NOT BE USED TO MONITOR UNFRACTIONATED HEPARIN THERAPY, THIS LABORATORY NO LONGER HAS AN ESTABLISHED THERAPEUTIC RANGE BASED ON THE APTT. IT IS RECOMMENDED THAT THE UFH - HEPARIN ASSAY (ANTI-XA ACTIVITY) BE USED FOR THIS PURPOSE. CLINICAL SIGNIFICANCE OF THE PTT RESULT IS QUESTIONABLE IN THE PRESENCE OF HEPARIN. Performed By: #### 3 5200, 61088, 52908, 93107 #### [facility] [address] [place] [address], [facility] POC GLUCOSE LABon 03-13-2018 Glucose mass conc 140 mg/dL High 70-100 [facility] Comment on above: Performed By: #### 3 5200, 82924, 18659, 73190 #### [facility] [address] [place] [address], [facility] Glucose mass conc 189 mg/dL High 70-100 [facility] Comment on above: Performed By: #### 3 5200, 63112, 19642, 03959 #### [facility] [address] [place] [address], [facility] Glucose mass conc 156 mg/dL High 70-100 [facility] Comment on above: Performed By: #### 3 5200, 10061, 52273, 74205 #### [facility] [address] [place] [address], [facility] UFH HEPARIN ASSAYon 03-13-19 19 UNFRACTIONATED HEPARIN 0.14 IU/mL Critically low 0.30-0.70 [facility] Comment on above: Order Comment: Yes: Add to Previous draw if able Result Comment: Cocoa roxaban and Apixaban will interfere with the anti Xa assay used to monitor UFH and LMWH. Results called. Accurately read back by PEGGY ISAACS Performed By: #### 3 5200, 35339, 93138, 98661 #### [facility] [address] [place] [address], [facility] UNFRACTIONATED HEPARIN 0.18 IU/mL Low 0.30-0.70 [facility] e [facility] Comment on above: Order Comment: Yes: Add to Previous draw if able Result Comment: Cocoa roxaban and Apixaban will interfere with the anti Xa assay used to monitor UFH and LMWH. Performed By: #### 3 5200, 56557, 56945, 40887 #### [facility] [address] [place] [address], [facility] UNFRACTIONATED HEPARIN 0.18 IU/mL Low 0.30-0.70 Th e [facility] Comment on above: Result Comment: Cocoa roxaban and Apixaban will interfere with the anti Xa assay used to monitor UFH and LMWH. ADDED PER PROTOCOL. Performed By: #### 3 5200, 02556, 11042, 93066 #### [facility] [address] [place] [address], [facility] APTTon 03-12-2018 aPTT Coag time (Bld) 49.2 s High 25.0-35.0 [facility] Comment on above: Order Comment: Yes: Add to Previous draw if able Result Comment: ALL RESULTS MUST BE INTERPRETED WITH RESPECT TO BLOOD DRAWING ARTIFACT OR DILUTION ERROR OF ANTICOAGULANT AT THE TIME OF SAMPLING. THE APTT SHOULD NOT BE USED TO MONITOR UNFRACTIONATED HEPARIN THERAPY, THIS LABORATORY NO LONGER HAS AN ESTABLISHED THERAPEUTIC RANGE BASED ON THE APTT. IT IS RECOMMENDED THAT THE UFH - HEPARIN ASSAY (ANTI-XA ACTIVITY) BE USED FOR THIS PURPOSE. Performed By: #### 3 5200, 58767, 38761, 84523 #### [facility] [address] [place] [address], [facility] aPTT Coag time (Bld) 59.2 s High 25.0-35.0 [facility] Comment on above: Order Comment: Yes: Add to Previous draw if able Result Comment: ALL RESULTS MUST BE INTERPRETED WITH RESPECT TO BLOOD DRAWING ARTIFACT OR DILUTION ERROR OF ANTICOAGULANT AT THE TIME OF SAMPLING. THE APTT SHOULD NOT BE USED TO MONITOR UNFRACTIONATED HEPARIN THERAPY, THIS LABORATORY NO LONGER HAS AN ESTABLISHED THERAPEUTIC RANGE BASED ON THE APTT. IT IS RECOMMENDED THAT THE UFH - HEPARIN ASSAY (ANTI-XA ACTIVITY) BE USED FOR THIS PURPOSE. CLINICAL SIGNIFICANCE OF THE PTT RESULT IS QUESTIONABLE IN THE PRESENCE OF HEPARIN. Performed By: #### 3 5200, 48420, 93440, 11291 #### [facility] [address] [place] [address], [facility] aPTT Coag time (Bld) 43.7 s High 25.0-35.0 [facility] Comment on above: Order Comment: Yes: Add to Previous draw if able Result Comment: ALL RESULTS MUST BE INTERPRETED WITH RESPECT TO BLOOD DRAWING ARTIFACT OR DILUTION ERROR OF ANTICOAGULANT AT THE TIME OF SAMPLING. THE APTT SHOULD NOT BE USED TO MONITOR UNFRACTIONATED HEPARIN THERAPY, THIS LABORATORY NO LONGER HAS AN ESTABLISHED THERAPEUTIC RANGE BASED ON THE APTT. IT IS RECOMMENDED THAT THE UFH - HEPARIN ASSAY (ANTI-XA ACTIVITY) BE USED FOR THIS PURPOSE. Performed By: #### 3 5200, 24205, 62975, 91486 #### [facility] [address] BASIC METABOLIC PANELon 02-0 Calcium mass conc 8.9 mg/dL Normal 8.6-10.3 [facility] Comment on above: Order Comment: Yes: Add to Previous draw if able Performed By: #### 3 5200, 48168, 05925, 31821 #### [facility] [address] [place] [address], [facility] Chloride molar conc 100 mmol/L Normal 98-107 [facility] Comment on above: Order Comment: Yes: Add to Previous draw if able Performed By: #### 3 5200, 07376, 92978, 20665 #### [facility] [address] [place] [address], [facility] CO2 molar conc 28 mmol/L Normal 21-31 [facility] Comment on above: Order Comment: Yes: Add to Previous draw if able Performed By: #### 3 5200, 10923, 87616, 88999 #### [facility] [address] [place] [address], [place] Creatinine mass conc 0.50 mg/dL Low 0.60-1.20 [facility] Comment on above: Order Comment: Yes: Add to Previous draw if able Performed By: #### 3 5200, 32201, 82054, 19681 #### [facility] [address] [place] [address], [place] GFR/1.73 sq M predicted among blacks MDRD vol rate/area (S/P/Bld) mL/min/{1.73_m2} Normal >60 [facility] Comment on above: Order Comment: Yes: Add to Previous draw if able Result Comment: Calc ulation may not be valid for patients over 70 years Performed By: #### 3 5200, 99663, 00813, 89818 #### [facility] [address] [place] [address], [place] GFR/1.73 sq M predicted among non-blacks MDRD vol rate/area (S/P/Bld) mL/min/{1.73_m2} Normal >60 [facility] Comment on above: Order Comment: Yes: Add to Previous draw if able Result Comment: Calc ulation may not be valid for patients over 70 years Performed By: #### 3 5200, 54456, 57826, 26429 #### [facility] [address] [place], [place] [address], [place] Glucose mass conc 132 mg/dL High 70-100 [facility] Comment on above: Order Comment: Yes: Add to Previous draw if able Performed By: #### 3 5200, 94551, 61575, 95760 #### [facility] [address] [place] [address], [place] Potassium molar conc 3.6 mmol/L Normal 3.5-5.1 [facility] Comment on above: Order Comment: Yes: Add to Previous draw if able Performed By: #### 3 5200, 94841, 14129, 39819 #### [facility] [address] [place] [address], [facility] Sodium molar conc 137 mmol/L Normal 136-145 [facility] Comment on above: Order Comment: Yes: Add to Previous draw if able Performed By: #### 3 5200, 44171, 35448, 67699 #### [facility] [address] [place] [address], [facility] Urea nitrogen mass conc 10 mg/dL Normal 7-25 T [facility] Comment on above: Order Comment: Yes: Add to Previous draw if able Performed By: #### 3 5200, 22221, 23008, 87866 #### [facility] [address] [place] [address], [facility] CBC COMPLETE BLOOD COUNTon 0 - Erythrocyte distribution width Ratio (RBC) 16.1 % High 11.5-15.0 [facility] Comment on above: Order Comment: Yes: Add to Previous draw if able Performed By: #### 3 5200, 74882, 28452, 45319 #### [facility] [address] [place] [address], [facility] Hematocrit Volume Fraction (Bld) 39.3 % Normal 36.0-45.0 [facility] Comment on above: Order Comment: Yes: Add to Previous draw if able Performed By: #### 3 5200, 11493, 91092, 59158 #### [facility] [address] [place] [address], [place] Hemoglobin mass conc (Bld) 12.4 g/dL Normal 12.0-15.0 [facility] Comment on above: Order Comment: Yes: Add to Previous draw if able Performed By: #### 3 5200, 23831, 51463, 38823 #### [facility] [address] [place] [address], [place] MCH Entitic mass (RBC) 29.7 pg Normal 27.0-33.0 [facility] Comment on above: Order Comment: Yes: Add to Previous draw if able Performed By: #### 3 5200, 73372, 57034, 58705 #### [facility] [address] MCHC mass conc (RBC) 31.6 g/dL Low 32.0-35.0 [facility] Comment on above: Order Comment: Yes: Add to Previous draw if able Performed By: #### 3 5200, 52308, 36123, 12111 #### [facility] [address] MCV Entitic volume (RBC) 94.0 fL Normal 82.0-98.0 [facility] Comment on above: Order Comment: Yes: Add to Previous draw if able Performed By: #### 3 5200, 46739, 96930, 77359 #### [facility] [address] Nucleated RBC/100 WBC Ratio (Bld) 0 % Normal 0-0 [facility] Comment on above: Order Comment: Yes: Add to Previous draw if able Performed By: #### 3 5200, 68334, 43489, 85433 #### [facility] [address] [place] [address], [facility] PLAT CNT 185 10*3/uL Normal 150-400 [facility] Comment on above: Order Comment: Yes: Add to Previous draw if able Performed By: #### 3 5200, 33344, 63110, 22939 #### [facility] [address] [place] [address], [facility] RBC #/vol (Bld) 4.18 10*6/uL Normal 3.80-5.00 [facility] Comment on above: Order Comment: Yes: Add to Previous draw if able Performed By: #### 3 5200, 59089, 79413, 09557 #### [facility] [address] [place] [address], [facility] WBC #/vol (Bld) 6.85 10*3/uL Normal 4.00-10.60 [facility] Comment on above: Order Comment: Yes: Add to Previous draw if able Performed By: #### 3 5200, 50917, 73725, 74412 #### [facility] [address] [place] [address], [facility] POC GLUCOSE LABon 03-12-2018 Glucose mass conc 135 mg/dL High 70-100 [facility] Comment on above: Performed By: #### 3 5200, 72948, 94848, 60585 #### [facility] [address] [place] [address], [facility] Glucose mass conc 188 mg/dL High 70-100 [facility] Comment on above: Performed By: #### 3 5200, 87912, 94524, 76067 #### [facility] [address] [place] [address], [facility] Glucose mass conc 130 mg/dL High 70-100 [facility] Comment on above: Performed By: #### 3 5200, 65585, 40327, 28221 #### [facility] [address] [place] [address], [facility] Glucose mass conc 139 mg/dL High 70-100 [facility] Comment on above: Performed By: #### 3 5200, 05615, 55070, 39549 #### [facility] [address] [place] [address], [facility] UFH HEPARIN ASSAYon 03-12-19 19 UNFRACTIONATED HEPARIN 0.30 IU/mL Normal 0.30-0.70 [facility] Comment on above: Order Comment: Yes: Add to Previous draw if able Result Comment: Kathy roxaban and Apixaban will interfere with the anti Xa assay used to monitor UFH and LMWH. Performed By: #### 3 5200, 76279, 64425, 97293 #### [facility] [address] [place] [address], [facility] APTTon 03-11-2018 aPTT Coag time (Bld) 88.3 s Critically high 25.0-35.0 [facility] Comment on above: Order Comment: Yes: Add to Previous draw if able Result Comment: ALL RESULTS MUST BE INTERPRETED WITH RESPECT TO BLOOD DRAWING ARTIFACT OR DILUTION ERROR OF ANTICOAGULANT AT THE TIME OF SAMPLING. THE APTT SHOULD NOT BE USED TO MONITOR UNFRACTIONATED HEPARIN THERAPY, THIS LABORATORY NO LONGER HAS AN ESTABLISHED THERAPEUTIC RANGE BASED ON THE APTT. IT IS RECOMMENDED THAT THE UFH - HEPARIN ASSAY (ANTI-XA ACTIVITY) BE USED FOR THIS PURPOSE. RESULTS CHECKED AND CALLED. ACCURATELY READ BACK BY ANANYA GUERRA RN AT 15:51 CLINICAL SIGNIFICANCE OF THE PTT RESULT IS QUESTIONABLE IN THE PRESENCE OF HEPARIN. Performed By: #### 3 5200, 88332, 38336, 41273 #### [facility] [address] aPTT Coag time (Bld) 50.4 s High 25.0-35.0 [facility] Comment on above: Order Comment: No: D o not add to previous draw Result Comment: ALL RESULTS MUST BE INTERPRETED WITH RESPECT TO BLOOD DRAWING ARTIFACT OR DILUTION ERROR OF ANTICOAGULANT AT THE TIME OF SAMPLING. THE APTT SHOULD NOT BE USED TO MONITOR UNFRACTIONATED HEPARIN THERAPY, THIS LABORATORY NO LONGER HAS AN ESTABLISHED THERAPEUTIC RANGE BASED ON THE APTT. IT IS RECOMMENDED THAT THE UFH - HEPARIN ASSAY (ANTI-XA ACTIVITY) BE USED FOR THIS PURPOSE. Performed By: #### 3 5200, 33440, 02776, 10312 #### [facility] [address] BASIC METABOLIC PANELon Calcium mass conc 8.9 mg/dL Normal 8.6-10.3 [facility] Comment on above: Order Comment: No: D o not add to previous draw Performed By: #### 3 5200, 15997, 11808, 26704 #### [facility] [address] [place] [address], [place] Chloride molar conc 101 mmol/L Normal 98-107 [facility] Comment on above: Order Comment: No: D o not add to previous draw Performed By: #### 3 5200, 47491, 31144, 71764 #### [facility] [address] [place] [address], [place] CO2 molar conc 29 mmol/L Normal 21-31 [facility] Comment on above: Order Comment: No: D o not add to previous draw Performed By: #### 3 5200, 78798, 56240, 40849 #### [facility] [address] [place] [address], [place] Creatinine mass conc 0.55 mg/dL Low 0.60-1.20 [facility] Comment on above: Order Comment: No: D o not add to previous draw Performed By: #### 3 5200, 69183, 69326, 80648 #### [facility] [address] [place] [address], [place] GFR/1.73 sq M predicted among blacks MDRD vol rate/area (S/P/Bld) mL/min/{1.73_m2} Normal >60 [facility] Comment on above: Order Comment: No: D o not add to previous draw Result Comment: Calc ulation may not be valid for patients over 70 years Performed By: #### 3 5200, 38455, 45590, 99420 #### [facility] [address] [place] [address], [place] GFR/1.73 sq M predicted among non-blacks MDRD vol rate/area (S/P/Bld) mL/min/{1.73_m2} Normal >60 [facility] Comment on above: Order Comment: No: D o not add to previous draw Result Comment: Calc ulation may not be valid for patients over 70 years Performed By: #### 3 5200, 89298, 93027, 93670 #### [facility] [address] [place] [address], [facility] Glucose mass conc 152 mg/dL High 70-100 [facility] Comment on above: Order Comment: No: D o not add to previous draw Performed By: #### 3 5200, 54898, 93082, 98414 #### [facility] [address] [place] [id number], [facility] Potassium molar conc 3.7 mmol/L Normal 3.5-5.1 [facility] Comment on above: Order Comment: No: D o not add to previous draw Performed By: #### 3 5200, 15096, 74726, 02378 #### [facility] [address] [place] [address], [facility] Sodium molar conc 138 mmol/L Normal 136-145 [facility] Comment on above: Order Comment: No: D o not add to previous draw Performed By: #### 3 5200, 06469, 04320, 09177 #### [facility] [address] [facility] [place] [address], [facility] Urea nitrogen mass conc 12 mg/dL Normal 7-25 T [facility] Comment on above: Order Comment: No: D o not add to previous draw Performed By: #### 3 5200, 42368, 97307, 03550 #### [facility] [address] [facility] [place] [address], [facility] CBC W/DIFFon 03-11-2018 ABS BASOPHILS 0.1 10*3/uL Normal 0.0-0.2 [facility] Comment on above: Order Comment: No: D o not add to previous draw Performed By: #### 3 5200, 99417, 84405, 24492 #### [facility] [address] [place] [address], [facility] ABS IMM GRANS 0.0 10*3/uL Normal 0.0-0.2 [facility] Comment on above: Order Comment: No: D o not add to previous draw Performed By: #### 3 5200, 62559, 05332, 48896 #### [facility] [address] [place] [address], [facility] ABS NEUTROPHILS 4.7 10*3/uL Normal 1.6-7.6 [facility] Comment on above: Order Comment: No: D o not add to previous draw Performed By: #### 3 5200, 60614, 16582, 29050 #### [facility] [address] [place] [address], [facility] Basophils #/vol (Bld) 0.9 % Normal 0.0-1.0 [facility] Comment on above: Order Comment: No: D o not add to previous draw Performed By: #### 3 5200, 07786, 17280, 41326 #### [facility] [address] [place] [address], [facility] Eosinophils #/vol (Bld) 0.2 10*3/uL Normal 0.0-0.5 [facility] Comment on above: Order Comment: No: D o not add to previous draw Performed By: #### 3 5200, 66195, 18187, 18310 #### [facility] [address] [place] [address], [facility] Eosinophils/100 WBC (Bld) 2.4 % Normal 0.0-6.0 [facility] Comment on above: Order Comment: No: D o not add to previous draw Performed By: #### 3 5200, 16665, 07953, 75310 #### [facility] [address] [place] [address], [facility] Erythrocyte distribution width Ratio (RBC) 16.1 % High 11.5-15.0 [facility] Comment on above: Order Comment: No: D o not add to previous draw Performed By: #### 3 5200, 02271, 67721, 97745 #### [facility] [address] Hematocrit Volume Fraction (Bld) 38.7 % Normal 36.0-45.0 [facility] Comment on above: Order Comment: No: D o not add to previous draw Performed By: #### 3 5200, 24571, 61459, 70109 #### [facility] [address] [place] [address], [facility] Hemoglobin mass conc (Bld) 12.5 g/dL Normal 12.0-15.0 [facility] Comment on above: Order Comment: No: D o not add to previous draw Performed By: #### 3 5200, 63343, 14481, 44655 #### [facility] [address] [place] [address], [facility] IMMATURE GRANS 0.6 % Normal 0.0-1.0 [facility] Comment on above: Order Comment: No: D o not add to previous draw Performed By: #### 3 5200, 69804, 00739, 81885 #### [facility] [address] [place] [address], [facility] Lymphocytes #/vol (Bld) 1.3 10*3/uL Normal 1.2-4.0 [facility] Comment on above: Order Comment: No: D o not add to previous draw Performed By: #### 3 5200, 37558, 02448, 05437 #### [facility] [address] [place] [address], [facility] Lymphocytes/100 WBC (Bld) 18.6 % Low 20.0-45.0 [facility] Comment on above: Order Comment: No: D o not add to previous draw Performed By: #### 3 5200, 08848, 25341, 10426 #### [facility] [address] [place] [address], [facility] MCH Entitic mass (RBC) 29.9 pg Normal 27.0-33.0 [facility] Comment on above: Order Comment: No: D o not add to previous draw Performed By: #### 3 5200, 76305, 78112, 69475 #### [facility] [address] [place] [address], [facility] MCHC mass conc (RBC) 32.3 g/dL Normal 32.0-35.0 [facility] Comment on above: Order Comment: No: D o not add to previous draw Performed By: #### 3 5200, 84294, 98518, 00108 #### [facility] [address] [place] [address], [facility] MCV Entitic volume (RBC) 92.6 fL Normal 82.0-98.0 [facility] Comment on above: Order Comment: No: D o not add to previous draw Performed By: #### 3 5200, 28094, 13033, 16958 #### [facility] [address] [place] [address], [facility] Monocytes #/vol (Bld) 0.5 10*3/uL Normal 0.1-1.0 [facility] Comment on above: Order Comment: No: D o not add to previous draw Performed By: #### 3 5200, 85633, 36382, 62665 #### [facility] [address] [place] [address], [facility] MONOS 7.0 % Normal 5.0-12.0 [facility] Comment on above: Order Comment: No: D o not add to previous draw Performed By: #### 3 5200, 02044, 70829, 09369 #### [facility] [address] [place] [address], [facility] Neutrophils/100 WBC (Bld) 70.5 % Normal 40.0-72.0 [facility] Comment on above: Order Comment: No: D o not add to previous draw Performed By: #### 3 5200, 59646, 47284, 63811 #### [facility] [address] [place] Nucleated RBC/100 WBC Ratio (Bld) 0 % Normal 0-0 [facility] Comment on above: Order Comment: No: D o not add to previous draw Performed By: #### 3 5200, 86951, 73468, 55795 #### [facility] [address] [place] [address], [facility] PLAT CNT 189 10*3/uL Normal 150-400 [facility] Comment on above: Order Comment: No: D o not add to previous draw Performed By: #### 3 5200, 51153, 32470, 03883 #### [facility] [address] [place] [address], [facility] RBC #/vol (Bld) 4.18 10*6/uL Normal 3.80-5.00 [facility] Comment on above: Order Comment: No: D o not add to previous draw Performed By: #### 3 5200, 66341, 32282, 98564 #### [facility] [address] [place] [address], [facility] WBC #/vol (Bld) 6.71 10*3/uL Normal 4.00-10.60 [facility] Comment on above: Order Comment: No: D o not add to previous draw Performed By: #### 3 5200, 15084, 75020, 76648 #### [facility] [address] [place] [address], [facility] POC GLUCOSE LABon 03-11-2018 Glucose mass conc 128 mg/dL High 70-100 [facility] Comment on above: Performed By: #### 3 5200, 97476, 26810, 60141 #### [facility] [address] [place] [id number], [facility] Glucose mass conc 100 mg/dL Normal 70-100 [facility] Comment on above: Performed By: #### 3 5200, 89490, 93451, 81091 #### [facility] [address] [facility]. [address] Glucose mass conc 158 mg/dL High 70-100 [facility] Comment on above: Performed By: #### 3 5200, 74944, 94162, 81881 #### [facility] [address] UFH HEPARIN ASSAYon 03-11-19 19 UNFRACTIONATED HEPARIN 0.35 IU/mL Normal 0.30-0.70 [facility] Comment on above: Order Comment: Yes: Add to Previous draw if able Result Comment: Kathy roxaban and Apixaban will interfere with the anti Xa assay used to monitor UFH and LMWH. RESULTS CHECKED AND CALLED. ACCURATELY READ BACK BY ANANYA GUERRA RN AT 15:51 CLINICAL SIGNIFICANCE OF THE PTT RESULT IS QUESTIONABLE IN THE PRESENCE OF HEPARIN. Performed By: #### 3 5200, 45825, 06006, 84117 #### [facility] [address] [facility]. [address] UNFRACTIONATED HEPARIN 0.28 IU/mL Low 0.30-0.70 [facility] Comment on above: Result Comment: Cocoa roxaban and Apixaban will interfere with the anti Xa assay used to monitor UFH and LMWH. Performed By: #### 3 5200, 33397, 18714, 58712 #### [facility] [address] [facility]. [address] APTTon 03-10-2018 aPTT Coag time (Bld) 53.0 s High 25.0-35.0 [facility] Comment on above: Order Comment: No: D o not add to previous draw Result Comment: ALL RESULTS MUST BE INTERPRETED WITH RESPECT TO BLOOD DRAWING ARTIFACT OR DILUTION ERROR OF ANTICOAGULANT AT THE TIME OF SAMPLING. THE APTT SHOULD NOT BE USED TO MONITOR UNFRACTIONATED HEPARIN THERAPY, THIS LABORATORY NO LONGER HAS AN ESTABLISHED THERAPEUTIC RANGE BASED ON THE APTT. IT IS RECOMMENDED THAT THE UFH - HEPARIN ASSAY (ANTI-XA ACTIVITY) BE USED FOR THIS PURPOSE. CLINICAL SIGNIFICANCE OF THE PTT RESULT IS QUESTIONABLE IN THE PRESENCE OF HEPARIN. Performed By: #### 3 5200, 67546, 05582, 70148 #### [facility] [address] [place] [address], [facility] aPTT Coag time (Bld) 47.7 s High 25.0-35.0 [facility] Comment on above: Order Comment: No: D o not add to previous draw Result Comment: ALL RESULTS MUST BE INTERPRETED WITH RESPECT TO BLOOD DRAWING ARTIFACT OR DILUTION ERROR OF ANTICOAGULANT AT THE TIME OF SAMPLING. THE APTT SHOULD NOT BE USED TO MONITOR UNFRACTIONATED HEPARIN THERAPY, THIS LABORATORY NO LONGER HAS AN ESTABLISHED THERAPEUTIC RANGE BASED ON THE APTT. IT IS RECOMMENDED THAT THE UFH - HEPARIN ASSAY (ANTI-XA ACTIVITY) BE USED FOR THIS PURPOSE. Performed By: #### 3 5200, 84029, 53399, 35317 #### [facility] [address] [place] [address], [facility] aPTT Coag time (Bld) 68.2 s High 25.0-35.0 [facility] Comment on above: Order Comment: No: D o not add to previous draw Result Comment: ALL RESULTS MUST BE INTERPRETED WITH RESPECT TO BLOOD DRAWING ARTIFACT OR DILUTION ERROR OF ANTICOAGULANT AT THE TIME OF SAMPLING. THE APTT SHOULD NOT BE USED TO MONITOR UNFRACTIONATED HEPARIN THERAPY, THIS LABORATORY NO LONGER HAS AN ESTABLISHED THERAPEUTIC RANGE BASED ON THE APTT. IT IS RECOMMENDED THAT THE UFH - HEPARIN ASSAY (ANTI-XA ACTIVITY) BE USED FOR THIS PURPOSE. Performed By: #### 3 5200, 46738, 70914, 44290 #### [facility] [address] [place] [address], [facility] BASIC METABOLIC PANELon 02-0 Calcium mass conc 8.7 mg/dL Normal 8.6-10.3 [facility] Comment on above: Order Comment: No: D o not add to previous draw Performed By: #### 3 5200, 83759, 38916, 10543 #### [facility] [address] [place] [address], [facility] Chloride molar conc 100 mmol/L Normal 98-107 [facility] Comment on above: Order Comment: No: D o not add to previous draw Performed By: #### 3 5200, 84087, 63930, 19748 #### [facility] [address] [place] [address], [facility] CO2 molar conc 28 mmol/L Normal 21-31 [facility] Comment on above: Order Comment: No: D o not add to previous draw Performed By: #### 3 5200, 44929, 48307, 39398 #### [facility] [address] [place] [address], [facility] Creatinine mass conc 0.57 mg/dL Low 0.60-1.20 [facility] Comment on above: Order Comment: No: D o not add to previous draw Performed By: #### 3 5200, 13437, 98435, 68083 #### [facility] [address] [place] [address], [facility] GFR/1.73 sq M predicted among blacks MDRD vol rate/area (S/P/Bld) mL/min/{1.73_m2} Normal >60 [facility] Comment on above: Order Comment: No: D o not add to previous draw Result Comment: Calc ulation may not be valid for patients over 70 years Performed By: #### 3 5200, 40891, 99881, 74360 #### [facility] [address] [place] [address], [facility] GFR/1.73 sq M predicted among non-blacks MDRD vol rate/area (S/P/Bld) mL/min/{1.73_m2} Normal >60 [facility] Comment on above: Order Comment: No: D o not add to previous draw Result Comment: Calc ulation may not be valid for patients over 70 years Performed By: #### 3 5200, 26289, 66778, 12459 #### [facility] [address] [place] [address], [place] Glucose mass conc 141 mg/dL High 70-100 [facility] Comment on above: Order Comment: No: D o not add to previous draw Performed By: #### 3 5200, 47700, 91766, 39927 #### [facility] [address] [place] [id number], [facility] Potassium molar conc 4.0 mmol/L Normal 3.5-5.1 [facility] Comment on above: Order Comment: No: D o not add to previous draw Performed By: #### 3 5200, 09682, 35376, 54983 #### [facility] [address] [place] [address], [facility] Sodium molar conc 136 mmol/L Normal 136-145 [facility] Comment on above: Order Comment: No: D o not add to previous draw Performed By: #### 3 5200, 64955, 88966, 65252 #### [facility] [address] [place] [address], [facility] Urea nitrogen mass conc 12 mg/dL Normal 7-25 T [facility] Comment on above: Order Comment: No: D o not add to previous draw Performed By: #### 3 5200, 53745, 01625, 89515 #### [facility] [address] [place] [id number], [facility] CBC COMPLETE BLOOD COUNTon 0 - Erythrocyte distribution width Ratio (RBC) 16.1 % High 11.5-15.0 [facility] Comment on above: Order Comment: No: D o not add to previous draw Performed By: #### 3 5200, 21200, 72139, 79061 #### [facility] [address] [place] [address], [facility] Hematocrit Volume Fraction (Bld) 39.4 % Normal 36.0-45.0 [facility] Comment on above: Order Comment: No: D o not add to previous draw Performed By: #### 3 5200, 16943, 20438, 85722 #### [facility] [address] Hemoglobin mass conc (Bld) 12.9 g/dL Normal 12.0-15.0 [facility] Comment on above: Order Comment: No: D o not add to previous draw Performed By: #### 3 5200, 55195, 13757, 50303 #### [facility] [address] [place] [address], [facility] MCH Entitic mass (RBC) 30.0 pg Normal 27.0-33.0 [facility] Comment on above: Order Comment: No: D o not add to previous draw Performed By: #### 3 5200, 25449, 44861, 79265 #### [facility] [address] [facility] [address] MCHC mass conc (RBC) 32.7 g/dL Normal 32.0-35.0 [facility] Comment on above: Order Comment: No: D o not add to previous draw Performed By: #### 3 5200, 81070, 20673, 34132 #### [facility] [address] [place] [address], [facility] MCV Entitic volume (RBC) 91.6 fL Normal 82.0-98.0 [facility] Comment on above: Order Comment: No: D o not add to previous draw Performed By: #### 3 5200, 02019, 45664, 45161 #### [facility] [address] [facility] [place] [address], [facility] Nucleated RBC/100 WBC Ratio (Bld) 0 % Normal 0-0 [facility] Comment on above: Order Comment: No: D o not add to previous draw Performed By: #### 3 5200, 68443, 80070, 39449 #### [facility] [address] [place] [id number], [facility] PLAT CNT 200 10*3/uL Normal 150-400 [facility] Comment on above: Order Comment: No: D o not add to previous draw Performed By: #### 3 5200, 11384, 85569, 91272 #### [facility] [address] [place] [address], [facility] RBC #/vol (Bld) 4.30 10*6/uL Normal 3.80-5.00 [facility] Comment on above: Order Comment: No: D o not add to previous draw Performed By: #### 3 5200, 88462, 31799, 67202 #### [facility] [address] [place] [address], [facility] WBC #/vol (Bld) 7.21 10*3/uL Normal 4.00-10.60 [facility] Comment on above: Order Comment: No: D o not add to previous draw Performed By: #### 3 5200, 38728, 82159, 00976 #### [facility] [address] [facility] UFH HEPARIN ASSAYon 03-10-19 19 UNFRACTIONATED HEPARIN 0.33 IU/mL Normal 0.30-0.70 [facility] Comment on above: Result Comment: Kathy roxaban and Apixaban will interfere with the anti Xa assay used to monitor UFH and LMWH. UFH ADDED PER PROTOCOL Performed By: #### 3 5200, 09743, 03811, 87403 #### [facility] [address] UNFRACTIONATED HEPARIN 0.89 IU/mL High 0.30-0.70 [facility] Comment on above: Order Comment: No: D o not add to previous draw Result Comment: Kathy roxaban and Apixaban will interfere with the anti Xa assay used to monitor UFH and LMWH. Performed By: #### 3 5200, 25573, 67231, 33967 #### [facility] [address] APTTon 03-09-2018 aPTT Coag time (Bld) 67.5 s High 25.0-35.0 [facility] Comment on above: Order Comment: Yes: Add to Previous draw if able Result Comment: ALL RESULTS MUST BE INTERPRETED WITH RESPECT TO BLOOD DRAWING ARTIFACT OR DILUTION ERROR OF ANTICOAGULANT AT THE TIME OF SAMPLING. THE APTT SHOULD NOT BE USED TO MONITOR UNFRACTIONATED HEPARIN THERAPY, THIS LABORATORY NO LONGER HAS AN ESTABLISHED THERAPEUTIC RANGE BASED ON THE APTT. IT IS RECOMMENDED THAT THE UFH - HEPARIN ASSAY (ANTI-XA ACTIVITY) BE USED FOR THIS PURPOSE. CLINICAL SIGNIFICANCE OF THE PTT RESULT IS QUESTIONABLE IN THE PRESENCE OF HEPARIN. Performed By: #### 8 5123 #### [facility] [address] [place] [address], [facility] aPTT Coag time (Bld) 58.4 s High 25.0-35.0 [facility] Comment on above: Order Comment: Yes: Add to Previous draw if able Result Comment: ALL RESULTS MUST BE INTERPRETED WITH RESPECT TO BLOOD DRAWING ARTIFACT OR DILUTION ERROR OF ANTICOAGULANT AT THE TIME OF SAMPLING. THE APTT SHOULD NOT BE USED TO MONITOR UNFRACTIONATED HEPARIN THERAPY, THIS LABORATORY NO LONGER HAS AN ESTABLISHED THERAPEUTIC RANGE BASED ON THE APTT. IT IS RECOMMENDED THAT THE UFH - HEPARIN ASSAY (ANTI-XA ACTIVITY) BE USED FOR THIS PURPOSE. Performed By: #### 8 5123 #### [facility] [address] [place] [address], [facility] aPTT Coag time (Bld) 89.8 s Critically high 25.0-35.0 [facility] Comment on above: Order Comment: Yes: Add to Previous draw if able Result Comment: ALL RESULTS MUST BE INTERPRETED WITH RESPECT TO BLOOD DRAWING ARTIFACT OR DILUTION ERROR OF ANTICOAGULANT AT THE TIME OF SAMPLING. THE APTT SHOULD NOT BE USED TO MONITOR UNFRACTIONATED HEPARIN THERAPY, THIS LABORATORY NO LONGER HAS AN ESTABLISHED THERAPEUTIC RANGE BASED ON THE APTT. IT IS RECOMMENDED THAT THE UFH - HEPARIN ASSAY (ANTI-XA ACTIVITY) BE USED FOR THIS PURPOSE. RESULTS CHECKED AND CALLED. ACCURATELY READ BACK BY SAÚL GONZALES RN AT 14:02 Performed By: #### 8 5123 #### [facility] [address] [place] [address], [place] aPTT Coag time (Bld) 80.2 s Critically high 25.0-35.0 [facility] Comment on above: Order Comment: Yes: Add to Previous draw if able Result Comment: ALL RESULTS MUST BE INTERPRETED WITH RESPECT TO BLOOD DRAWING ARTIFACT OR DILUTION ERROR OF ANTICOAGULANT AT THE TIME OF SAMPLING. THE APTT SHOULD NOT BE USED TO MONITOR UNFRACTIONATED HEPARIN THERAPY, THIS LABORATORY NO LONGER HAS AN ESTABLISHED THERAPEUTIC RANGE BASED ON THE APTT. IT IS RECOMMENDED THAT THE UFH - HEPARIN ASSAY (ANTI-XA ACTIVITY) BE USED FOR THIS PURPOSE. Performed By: #### 8 5123 #### [facility] [address] aPTT Coag time (Bld) 47.3 s High 25.0-35.0 [facility] Comment on above: Order Comment: No: D o not add to previous draw Result Comment: ALL RESULTS MUST BE INTERPRETED WITH RESPECT TO BLOOD DRAWING ARTIFACT OR DILUTION ERROR OF ANTICOAGULANT AT THE TIME OF SAMPLING. THE APTT SHOULD NOT BE USED TO MONITOR UNFRACTIONATED HEPARIN THERAPY, THIS LABORATORY NO LONGER HAS AN ESTABLISHED THERAPEUTIC RANGE BASED ON THE APTT. IT IS RECOMMENDED THAT THE UFH - HEPARIN ASSAY (ANTI-XA ACTIVITY) BE USED FOR THIS PURPOSE. Performed By: #### 5 6101, 61688 #### [facility] [address] [facility]. [address] BNP (B-TYPE NATRIURETIC PEPT ISSA)on 03-09-2018 Natriuretic peptide B mass conc (Bld) 596 pg/mL High 0-100 [facility] Comment on above: Order Comment: Yes: Add to Previous draw if able Result Comment: Give n the appropriate clinical setting a BNP result of >100 pg/mL indicates congestive heart failure. Performed By: #### 8 5123 #### [facility] [address] [facility]. [address] CBC COMPLETE BLOOD COUNTon 0 03-09-2018 Erythrocyte distribution width Ratio (RBC) 16.1 % High 11.5-15.0 [facility] Comment on above: Order Comment: Yes: Add to Previous draw if able Performed By: #### 8 5123 #### [facility] [address] Hematocrit Volume Fraction (Bld) 42.2 % Normal 36.0-45.0 [facility] Comment on above: Order Comment: Yes: Add to Previous draw if able Performed By: #### 8 5123 #### [facility] [address] [place] [id number], [facility] Hemoglobin mass conc (Bld) 13.7 g/dL Normal 12.0-15.0 [facility] Comment on above: Order Comment: Yes: Add to Previous draw if able Performed By: #### 8 5123 #### [facility] [address] [place] [address], [facility] MCH Entitic mass (RBC) 30.0 pg Normal 27.0-33.0 [facility] Comment on above: Order Comment: Yes: Add to Previous draw if able Performed By: #### 8 5123 #### [facility] [address] MCHC mass conc (RBC) 32.5 g/dL Normal 32.0-35.0 [facility] Comment on above: Order Comment: Yes: Add to Previous draw if able Performed By: #### 8 5123 #### [facility] [address] MCV Entitic volume (RBC) 92.5 fL Normal 82.0-98.0 [facility] Comment on above: Order Comment: Yes: Add to Previous draw if able Performed By: #### 8 [id number] #### [facility] [address] Nucleated RBC/100 WBC Ratio (Bld) 0 % Normal 0-0 [facility] Comment on above: Order Comment: Yes: Add to Previous draw if able Performed By: #### 8 5123 #### [facility] [address] [place] [address], [facility] PLAT CNT 208 10*3/uL Normal 150-400 [facility] Comment on above: Order Comment: Yes: Add to Previous draw if able Performed By: #### 8 5123 #### [facility] [address] [place] [address], [facility] RBC #/vol (Bld) 4.56 10*6/uL Normal 3.80-5.00 [facility] Comment on above: Order Comment: Yes: Add to Previous draw if able Performed By: #### 8 5123 #### [facility] [address] [place] [address], [facility] WBC #/vol (Bld) 9.26 10*3/uL Normal 4.00-10.60 [facility] Comment on above: Order Comment: Yes: Add to Previous draw if able Performed By: #### 8 [id number] #### [facility] [address] [place] [address], [facility] Erythrocyte distribution width Ratio (RBC) 15.9 % High 11.5-15.0 [facility] Comment on above: Order Comment: Yes: Add to Previous draw if able Performed By: #### 5 0608 #### [facility] [address] [place] [address], [facility] Hematocrit Volume Fraction (Bld) 38.2 % Normal 36.0-45.0 [facility] Comment on above: Order Comment: Yes: Add to Previous draw if able Performed By: #### 5 0608 #### [facility] [address] [place] [address], [facility] Hemoglobin mass conc (Bld) 12.4 g/dL Normal 12.0-15.0 [facility] Comment on above: Order Comment: Yes: Add to Previous draw if able Performed By: #### 5 0608 #### [facility] [address] [place] [id number], [facility] MCH Entitic mass (RBC) 29.5 pg Normal 27.0-33.0 [facility] Comment on above: Order Comment: Yes: Add to Previous draw if able Performed By: #### 5 0608 #### [facility] [address] MCHC mass conc (RBC) 32.5 g/dL Normal 32.0-35.0 [facility] Comment on above: Order Comment: Yes: Add to Previous draw if able Performed By: #### 5 0608 #### [facility] [address] MCV Entitic volume (RBC) 91.0 fL Normal 82.0-98.0 [facility] Comment on above: Order Comment: Yes: Add to Previous draw if able Performed By: #### 5 0608 #### [facility] [address] [facility] [address] Nucleated RBC/100 WBC Ratio (Bld) 0 % Normal 0-0 [facility] Comment on above: Order Comment: Yes: Add to Previous draw if able Performed By: #### 5 0608 #### [facility] [address] [facility] [address] PLAT CNT 193 10*3/uL Normal 150-400 [facility] Comment on above: Order Comment: Yes: Add to Previous draw if able Performed By: #### 5 0608 #### [facility] [address] RBC #/vol (Bld) 4.20 10*6/uL Normal 3.80-5.00 [facility] Comment on above: Order Comment: Yes: Add to Previous draw if able Performed By: #### 5 0608 #### [facility] [address] [place] [address], [facility] WBC #/vol (Bld) 8.57 10*3/uL Normal 4.00-10.60 [facility] Comment on above: Order Comment: Yes: Add to Previous draw if able Performed By: #### 5 0608 #### [facility] [address] [place] [address], [facility] ELECTROLYTE PANELon 03-09-19 19 Chloride molar conc 98 mmol/L Normal 98-107 [facility] Comment on above: Order Comment: Yes: Add to Previous draw if able Performed By: #### 3 5200, 86952, 02054, 67599 #### [facility] [address] [place] [address], [facility] CO2 molar conc 26 mmol/L Normal 21-31 [facility] Comment on above: Order Comment: Yes: Add to Previous draw if able Performed By: #### 3 5200, 01001, 73568, 38563 #### [facility] [address] [place] [address], [facility] Potassium molar conc 4.0 mmol/L Normal 3.5-5.1 [facility] Comment on above: Order Comment: Yes: Add to Previous draw if able Performed By: #### 3 5200, 03353, 58324, 68255 #### [facility] [address] [place] [address], [facility] Sodium molar conc 135 mmol/L Low 136-145 [facility] Comment on above: Order Comment: Yes: Add to Previous draw if able Performed By: #### 3 5200, 48013, 14871, 76863 #### [facility] [address] [place] [address], [facility] MAGNESIUM BLOODon 03-09-2018 Magnesium mass conc 1.2 mg/dL Low 1.9-2.7 [facility] Comment on above: Order Comment: Yes: Add to Previous draw if able Performed By: #### 3 5200, 28709, 65511, 46870 #### [facility] [address] [place] [address], [facility] PORTABLE CHEST 1 VIEWon PORTABLE CHEST 1 VIEW [facility] Department of Radiology [address] [place] [id number] Patient Name: JACQUELYN KAPLAN : 1945 Sex: F Age: Race: White Pt. Location: [id number] Patient Status: I Ordered Date: 03/09/2018 2:15:00 AM Completed Date: 03/09/2018 03:06 AM Requesting Provider: MILA COSTELLO I Attending Provider: STEPHANIE CARBALLO Report Copy To: Signs & Symptoms: Shortness of Breath History: Patient history not available Comments: R/O Infiltrates Exam: PORTABLE CHEST 1 VIEW PORTABLE CHEST 1 VIEW 03/09/2018 3:06 AM EST SIGNS AND SYMPTOMS: Shortness of Breath TECHNOLOGIST COMMENTS: short of breath, congestion QUESTION FOR THE RADIOLOGIST: R/O Infiltrates PROTOCOL: AP(PA) view was obtained. COMPARISON: None FINDINGS: Cardiac silhouette is enlarged. Calcification at the aortic knob. Perihilar vascular congestion with prominent interstitial lung markings. No focal pulmonary consolidation. No pleural effusion or pneumothorax. IMPRESSION: Cardiomegaly with perihilar vascular congestion and interstitial pulmonary edema. Approved by:Beth Milton on 03/09/2018 3:13 AM EST. I, Peña Díaz, have reviewed the images and report and concur with these findings. Electronically signed by:Peña Díaz. Transcribed by: [email or web address], User Resident: BETH MILTON Electronically Signed by: PEÑA DÍAZ @ 03/09/2018 01:31 PM I personally read this/these film(s) with this resident Normal [facility] Comment on above: Order Comment: Yes: Add to Previous draw if able PROTHROMBIN TIMEon INR Coag RelTime (PPP) 1.78 {INR} High 0.91-1.16 [facility] Comment on above: Result Comment: ACCC P RECOMMENDED INR FOR WARFARIN THERAPY ------- CONDITION INR PROPHYLAXIS OF VENOUS THROMBOSIS 2-3 (HIGH-RISK SURGERY) TREATMENT OF VENOUS THROMBOSIS 2-3 TREATMENT OF PULMONARY EMBOLISM 2-3 PREVENTION OF SYSTEMIC EMBOLISM: 2-3 ACUTE MYOCARDIAL INFARCTION TISSUE HEART VALVES VALVULAR HEART DISEASE ATRIAL FIBRILLATION RECURRENT SYSTEMIC EMBOLISM MECHANICAL HEART VALVE 2.5-3.5 FROM: ORAL ANTICOAGULANTS. MECHANISM OF ACTION, CLINICAL EFFECTIVENESS, AND OPTIMAL THERAPEUTIC RANGE. CHEST 1995;108:231S-246S. Performed By: #### 8 5123 #### [facility] [address] [employer] Prothrombin time (PT) Coag time (PPP) 20.8 s High 12.3-14.8 [facility] Comment on above: Result Comment: ALL RESULTS MUST BE INTERPRETED WITH RESPECT TO BLOOD DRAWING ARTIFACT OR DILUTION ERROR OF ANTICOAGULANT AT THE TIME OF SAMPLING. Performed By: #### 8 5123 #### [facility] [address] [place] [address], [facility] INR Coag RelTime (PPP) 2.82 {INR} High 0.91-1.16 [facility] Comment on above: Order Comment: No: D o not add to previous draw Result Comment: ACCC P RECOMMENDED INR FOR WARFARIN THERAPY ------- CONDITION INR PROPHYLAXIS OF VENOUS THROMBOSIS 2-3 (HIGH-RISK SURGERY) TREATMENT OF VENOUS THROMBOSIS 2-3 TREATMENT OF PULMONARY EMBOLISM 2-3 PREVENTION OF SYSTEMIC EMBOLISM: 2-3 ACUTE MYOCARDIAL INFARCTION TISSUE HEART VALVES VALVULAR HEART DISEASE ATRIAL FIBRILLATION RECURRENT SYSTEMIC EMBOLISM MECHANICAL HEART VALVE 2.5-3.5 FROM: ORAL ANTICOAGULANTS. MECHANISM OF ACTION, CLINICAL EFFECTIVENESS, AND OPTIMAL THERAPEUTIC RANGE. CHEST 1995;108:231S-246S. Performed By: #### 5 6101, 33223 #### [facility] [address] Prothrombin time (PT) Coag time (PPP) 29.9 s High 12.3-14.8 [facility] Comment on above: Order Comment: No: D o not add to previous draw Result Comment: ALL RESULTS MUST BE INTERPRETED WITH RESPECT TO BLOOD DRAWING ARTIFACT OR DILUTION ERROR OF ANTICOAGULANT AT THE TIME OF SAMPLING. Performed By: #### 5 6101, 56154 #### [facility] [address] TROPONIN-Ion 03-09-2018 Troponin I.cardiac mass conc 0.01 ng/mL Normal 0.00-0.04 [facility] Comment on above: Order Comment: No: D o not add to previous draw Result Comment: REFE RENCE RANGES: 0.00 - 0.04 ng/ml NORMAL 0.05 - 0.50 ng/ml INDETERMINATE > 0.50 ng/ml CONSISTENT WITH AN M.I. Performed By: #### 3 5200 #### [facility] [address] [place] [address], [facility] Troponin I.cardiac mass conc 0.01 ng/mL Normal 0.00-0.04 [facility] Comment on above: Order Comment: No: D o not add to previous draw Result Comment: REFE RENCE RANGES: 0.00 - 0.04 ng/ml NORMAL 0.05 - 0.50 ng/ml INDETERMINATE > 0.50 ng/ml CONSISTENT WITH AN M.I. Performed By: #### 3 5200 #### [facility] [address] [place] [address], [facility] Troponin I.cardiac mass conc 0.01 ng/mL Normal 0.00-0.04 [facility] Comment on above: Order Comment: No: D o not add to previous draw Result Comment: REFE RENCE RANGES: 0.00 - 0.04 ng/ml NORMAL 0.05 - 0.50 ng/ml INDETERMINATE > 0.50 ng/ml CONSISTENT WITH AN M.I. Performed By: #### 3 5200, 33381, 60654, 87144 #### [facility] [address] TSH3on 03-09-2018 TSH 3RD GENERATION 3.21 uIU/mL Normal 0.34-5.60 [facility] Comment on above: Order Comment: Yes: Add to Previous draw if able Performed By: #### 3 5200, 69656, 59600, 98609 #### [facility] [address] [facility] [address] UFH HEPARIN ASSAYon 03-09-19 19 UNFRACTIONATED HEPARIN >1.00 Critically high 0.30-0.7 0 [facility] Comment on above: Result Comment: Kathy roxaban and Apixaban will interfere with the anti Xa assay used to monitor UFH and LMWH. Performed By: #### 8 5123 #### [facility] [address] [place] [address], [facility] UNFRACTIONATED HEPARIN >1.00 Critically high 0.30-0.7 0 [facility] Comment on above: Order Comment: Yes: Add to Previous draw if able Result Comment: Kathy roxaban and Apixaban will interfere with the anti Xa assay used to monitor UFH and LMWH. UFH = 2.28. UFH MAY BE ELEVATED IN THE PRESENCE OF OTHER ANTI-XA INHIBITORS. Performed By: #### 8 5123 #### [facility] [address] UNFRACTIONATED HEPARIN >1.00 Critically high 0.30-0.7 0 [facility] Comment on above: Result Comment: Kathy roxaban and Apixaban will interfere with the anti Xa assay used to monitor UFH and LMWH. RESULTS CHECKED AND CALLED. ACCURATELY READ BACK BY SAÚL GONZALES RN AT 10:36. PATIENT WAS ON XARELTO AT HOME, CAUSING UFH TO APPEAR FALSELY ELEVATED. NURSE TO TALK TO DOCTORS TO SEE IF THEY WANT TO ADD PTT. UFH MAY BE ELEVATED IN THE PRESENCE OF OTHER ANTI-XA INHIBITORS. UFH = 2.62 Performed By: #### 8 5123 #### [facility] [address] Vital Signs Date Time Vital Sign Value Performing Clinician Leigh weiss 10-27-2022 12:14-0400 Diastolic blood pressure 53 mm[Hg] MD Gumaro Ordonez Work Phone: [facility] 10-27-2022 12:14-0400 Heart rate 73 /min MD Gumaro Ordonez Work Phone: [facility] 10-27-2022 12:14-0400 Respiratory rate 18 /min MD Gumaro Ordonez Work Phone: [facility] 10-27-2022 12:14-0400 SaO2% (BldA) [Mass fraction] 95 % MD Gumaro Ordonez Work Phone: [facility] 10-27-2022 12:14-0400 Systolic blood pressure 128 mm[Hg] MD Gumaro Ordonez Work Phone: [facility] 10-27-2022 10:54-0400 Body height 160.02 cm MD Gumaro Ordonez Work Phone: [facility] 10-27-2022 [id number] Body weight 122.46 kg MD Gumaro Ordonez Work Phone: [facility] Encounters Encounter Date Encounter Type Care Provider Facility Start: 01-12-2023 End: 01-12-2023 ambulatory [facility] Start: 12-04-2022 End: 12-04-2022 ambulatory Joe Cosme Facility:[facility] Start: 12-04-2022 End: 12-04-2022 ambulatory MD Gumaro Ordonez Work Phone: [facility] Work Phone: Start: 12-04-2022 End: 12-04-2022 Patient encounter procedure MD Gumaro Ordonez Work Phone: [facility] Work Phone: Start: 11-14-2022 End: 11-14-2022 ambulatory [facility] Start: 10-27-2022 End: 10-27-2022 ambulatory Joe Cosme Facility:[facility] Start: 10-27-2022 End: 10-27-2022 Admission to same day surgery center MD Gumaro Ordonez Work Phone: [facility] Work Phone: Start: 10-18-2022 End: 10-18-2022 ambulatory [facility] Start: 10-12-2022 ambulatory Mikey NIELSON Facility:[facility] Start: 10-11-2022 End: 10-15-2022 ambulatory Mikey NIELSON Facility:CD:[id number] Start: 09-22-2022 End: 09-22-2022 ambulatory [facility] Start: 07-17-2022 End: 07-17-2022 ambulatory DEN SILVERMANVIPIN [facility] Start: 05-01-2022 End: 05-02-[address] GUMARO ORDONEZ Facility:[facility] Start: 03-22-2022 End: 03-23-[address] GUMARO ORDONEZ Facility:[facility] Start: 10-31-2021 End: 11-01-[address] GUMARO ORDONEZ Facility:[facility] Start: 09-28-2021 End: 09-29-2021 ambulatory ROSA [facility] ERASMOLEO Facility: Start: 03-18-2018 End: 03-24-2018 Evaluation and management of inpatient PHAM GABRIEL Facility:[facility] Start: 03-09-2018 End: 03-13-2018 Evaluation and management of inpatient STEPHANIE CARBALLO Facility:[facility] Procedures Date Procedure Procedure Detail Performing Clinician Start: 12-04-2022 Capsule endoscopy MD Gumaro Ordonez Work Phone: Start: 10-27-2022 Esophagogastroduodenoscopy MD Gumaro Jiang Work Phone: Start: 03-12-2018 Mormon of Cardiac Rhythm, Single MOSHRIK ABD ALAMIR Start: 03-12-2018 ULTRASONOGRAPHY OF RIGHT AND LEFT HEART, TRANSESOPHAGEAL MOSHRIK ABD ALAMIR Start: 03-11-2018 FLUOROSCOPY OF MULTIPLE CORONARY ARTERIES USING OTH CONTRAST OMEGA DALE Start: 03-11-2018 MEASURE OF CARDIAC SAMPL \T\ PRESSURE, R HEART, PERC APPROACH OME[facility] DALE Start: 03-11-2018 MEASUREMENT OF ARTERIAL FLOW, PULMONARY, PERC APPROACH OMEGA DALE Plan of Treatment Date Care Activity Detail Author Start: 12-04-2022 [facility] Start: 10-27-2022 [facility] Patient Education Colon polyps H emorrhoids (DC) Diverticulosis (DC) Hiatal Hernia (DC) [facility] Work Phone: Payers Date Payer Category Payer Self-pay 1958 Medicare [id number] 1958 Unknown [id number] 1945 Unknown [id number] 2.16.8 [id number] 1945 Unknown [id number] 2.16.8 [id number] 1945 Unknown [id number] 2.16.84 [id number] 1945 Unknown [id number] 2.16.84 [id number] 1945 Unknown [id number] 2.16.84 [id number] 1945 Unknown [id number] 2.16.84 [id number] 1945 Unknown [id number] 2.16.8 [id number] Unknown Carmen BC/TIMO [id number] Unknown [id number] 2.16.8 [id number] Unknown [id number] 2.16.8 [id number] Social History Date Type Detail Facility [facility] Start: 1945 Sex Assigned At Female [facility] Goals Date Patient Goal Desired Activity /State Clinical Notes 09-29-2021 to 01-12-2023 Note Date & Type Note Facility 01-12-2023 Note [facility] Subjective Jacquelyn Kaplan is a 77 y.o. year old female patient being seen to discuss LAAO. She is not bleeding so far on Xarelto, which she has resumed since GI workup. She denies chest pain, SOB, lightheadedness, and palpitations. Patient Active Problem List Diagnosis Atrial fibrillation (CMS/HCC) Chronic systolic congestive heart failure (CMS/HCC) Nonrheumatic aortic valve stenosis S/p TAVR (transcatheter aortic valve replacement), bioprosthetic Family History Problem Relation Name Age of Onset Aortic stenosis Father Other (CABG) Father Social History Tobacco Use Smoking status: Never Smokeless tobacco: Never Substance Use Topics Alcohol use: Not Currently HPI Jacquelyn is seen in follow up, referred by Dr Burnett for SALVADOR closure. I had met her on 09/22/[address] Burnett due to increased velocities across her TAVR valve. She has had history of aortic valve stenosis status post TAVR in May 2018 at [facility]. This was using a 23 mm [place] HOLLIS balloon expandable valve. At that time she did not have any significant coronary artery disease. Prior medical history includes paroxysmal atrial fibrillation for which she is on anticoagulation, chronic systolic heart failure with improved ejection fraction, Diabetes and hypertension and dyslipidemia. My recommendation when I evaluated her in September 2022 was to continue to monitor her aortic valve by repeated echocardiograms due to absence of symptoms related to valvular dysfunction. In addition her particular valve is notorious to exhibit elevated transvalvular gradients. Today she is seen because in November 2022 she was admitted to the hospital with GI bleed requiring 5 units of blood transfusion. She underwent multiple investigations including upper and lower endoscopies and capsule endoscopy and there was no evidence of a reversible cause. She is currently maintained on Xarelto for anticoagulation. She had a discussion with her primary professor of business administration Dr. Burnett and they agreed that left atrial appendage closure is a good option for her. Today she reports that she has been doing relatively well. She has no chest pain. No shortness of breath at her current level of activity. She has bilateral leg swelling. She does not feel palpitation. Today she is in atrial fibrillation with rapid ventricular response Review of Systems Cardiovascular: Positive for leg swelling. Musculoskeletal: Positive for muscle weakness. All other systems reviewed and are negative. Objective Visit Vitals BP 96/72 (BP Location: Left wrist, Patient Position: Sitting) Pulse (!) 118 Ht 1.6 m (5' 3 ) Wt 122 kg (270 lb) Comment: verbal per patient SpO2 95% BMI 47.83 kg/m??? Smoking Status Never BSA 2.33 m??? Physical Exam Constitutional: Appearance: She is well-developed. She is obese. She is not ill-appearing. HENT: Head: Normocephalic and atraumatic. Nose: Nose normal. Eyes: General: No scleral icterus. Pupils: Pupils are equal, round, and reactive to light. Neck: Thyroid: No thyromegaly. Vascular: No JVD. Cardiovascular: Rate and Rhythm: Tachycardia present. Rhythm irregularly irregular. Pulses: Radial pulses are 2+ on the right side and 2+ on the left side. Heart sounds: Murmur heard. Systolic (RUSB) murmur is present with a grade of 2/6. No friction rub. No gallop. Pulmonary: Effort: Pulmonary effort is normal. No respiratory distress. Breath sounds: Normal breath sounds. No wheezing or rales. Chest: Chest wall: No tenderness. Abdominal: General: Bowel sounds are normal. There is no distension. Palpations: Abdomen is soft. Tenderness: There is no abdominal tenderness. Musculoskeletal: General: No swelling. Cervical back: Neck supple. Right lower le+ Pitting Edema present. Left lower le+ Pitting Edema present. Comments: Left leg in boots after ankle surgery In wheelchair Skin: General: Skin is warm and dry. Neurological: General: No focal deficit present. Mental Status: She is alert and oriented to person, place, and time. Psychiatric: Mood and Affect: Mood normal. Behavior: Behavior is cooperative. Judgment: Judgment normal. Allergies Allergies Allergen Reactions Sulfa (Sulfonamide Antibiotics) Anaphylaxis Medications Current Outpatient Medications: Alpha tocopherol (Vitamin E) 200 unit capsule, Take 400 Units by mouth in the morning., Disp: , Rfl: amitriptyline (Elavil) 25 mg tablet, Take 1 tablet by mouth at bedtime., Disp: , Rfl: aspirin 81 mg EC tablet, Take 1 tablet every day by oral route., Disp: , Rfl: atorvastatin (Lipitor) 40 mg tablet, Take 1 tablet every day by oral route for 30 days., Disp: , Rfl: calcium citrate-vitamin D3 (Citracal+D) 315 mg-5 mcg (200 unit) tablet, Take 1 tablet by mouth in the morning and 1 tablet in the evening., Disp: , Rfl: coenzyme Q-10 (more content not included)... [facility] 11-29-2022 Note I called and spoke t o patient. Explained the LAAO procedure, pre/post-procedure imaging, post-procedure medications, risks and benefits. She would like to proceed with the procedure. She is pending a video capsule study. Please schedule her for an appt with Dr. Carr for further discussion. [facility] 11-14-2022 Note [facility] PROGR ESS NOTE HPI: Jacquelyn Kaplan is a 77 y.o. female here for routine follow up. 77 yo female with a past medical history including HTN, HF with recovered EF, and severe aortic stenosis s/p TAVR placement. Patient presents today for routine follow-up. She had been holding anticoagulation due to recent GI bleed. She states that she recently underwent upper and lower endoscopy, and a polyp was removed. No sources of bleeding were identified, and patient was cleared by GI to resume anticoagulation. Patient adamantly denies any cardiac complaints or concerns. Patient denies any chest pain or shortness of breath. Patient denies any lower extremity edema, orthopnea, or proximal nocturnal dyspnea. No near-syncope or syncope. No dizziness or lightheadedness. Review of Systems Respiratory: Negative. Negative for chest tightness and shortness of breath. Cardiovascular: Negative for chest pain, palpitations and leg swelling. Neurological: Negative for dizziness and light-headedness. Visit Vitals BP 136/65 (BP Location: Right wrist, Patient Position: Sitting) Pulse 73 Ht 1.6 m (5' 3 ) SpO2 95% BMI 48.18 kg/m??? Smoking Status Never BSA 2.34 m??? Allergies Allergen Reactions Sulfa (Sulfonamide Antibiotics) Anaphylaxis Medications: Current Outpatient Medications on File Prior to Visit Medication Sig Dispense Refill Alpha tocopherol (Vitamin E) 200 unit capsule Take 400 Units by mouth in the morning. amiodarone (Pacerone) 100 mg tablet Take 100 mg by mouth in the morning. amitriptyline (Elavil) 25 mg tablet Take 1 tablet by mouth at bedtime. aspirin 81 mg EC tablet Take 1 tablet every day by oral route. atorvastatin (Lipitor) 40 mg tablet Take 1 tablet every day by oral route for 30 days. calcium citrate-vitamin D3 (Citracal+D) 315 mg-5 mcg (200 unit) tablet Take 1 tablet by mouth in the morning and 1 tablet in the evening. carvedilol (Coreg) 3.125 mg tablet Take 1 tablet (3.125 mg) by mouth in the morning and at bedtime. 180 tablet 3 coenzyme Q-10 100 mg capsule Take 100 mg by mouth 1 (one) time each day at the same time. furosemide (Lasix) 40 mg tablet Take 1 tablet twice a day by oral route for 30 days. glipiZIDE (Glucotrol) 5 mg tablet Take 1 tablet twice a day by oral route. levothyroxine (Tirosint) 125 mcg capsule Take by mouth before breakfast. lisinopril 10 mg tablet Take 1 tablet every day by oral route for 30 days. metFORMIN XR (Glucophage-XR) 500 mg 24 hr tablet Take 500 mg by mouth in the morning and at bedtime. potassium chloride CR (Klor-Con) 10 mEq ER tablet Take 1 tablet every day by oral route. sertraline (Zoloft) 50 mg tablet Take 50 mg by mouth in the morning. spironolactone (Aldactone) 25 mg tablet Take 1 tablet every day by oral route for 30 days. Xarelto 20 mg tablet Take 20 mg by mouth in the morning. No current facility-administered medications on file prior to visit. Physical Exam: Constitutional: Appearance: Normal appearance. Without apparent distress, obese, chronically ill HENT: Head: Normocephalic and atraumatic. Nose: Nose normal. Mouth/Throat: Mouth: Mucous membranes are moist. Eyes: Extraocular Movements: Extraocular movements intact. Conjunctiva/sclera: Conjunctivae normal. Neck: Vascular: No JVD. Cardiovascular: Rate and Rhythm: Normal rate and regular rhythm. Pulses: Dorsalis pedis pulses are 3 on the right side and 3on the left side. Posterior tibial pulses are 3 on the right side and 3 on the left side. Heart sounds: Normal heart sounds, S1 normal and S2 normal. Pulmonary: Effort: Pulmonary effort is normal. Breath sounds: Normal breath sounds. Abdominal: General: Bowel sounds are normal. Palpations: Abdomen is soft. Musculoskeletal: General: Normal range of motion. Cervical back: Normal range of motion. Right lower le+ edema. Left lower le+ edema. Skin: General: Skin is warm and dry. Capillary Refill: Capillary refill takes less than 2 seconds. Neurological: General: No focal deficit present. Mental Status: She is alert and oriented to person, place, and time. Psychiatric: Mood and Affect: Mood normal. Behavior: Behavior normal. Thought Content: Thought content normal. Judgment: Judgment normal. CV Testin04/2021 Echo Assessment/Plan: Chronic systolic congestive heart failure (CMS/HCC) No complaints. Euvolemic on exam Continue GDMT- lipitor, lisinopril, lasix, aldactone and coreg Diuretic therapy- lasix- fairly euvolemic and stable Monitor daily weights, I&O, fluid restriction 1.5-2L/day, renal function and electrolytes Atrial fibrillation (CMS/HCC) Continue amiodarone, and coreg. Xarelto was stopped during hospitalization due to GI bleed. She has been cleared by GI to resume Xarelto. I had an extensive discussion with patient regarding risks of anticoagulation/bleed versus risk of stroke. Patient understands the risk, and she p (more content not included)... [facility] 11-14-2022 Note Patient here for 4 w [place] follow up GI visit. She underwent upper and lower scopes at [facility]. Per patient, Dr. Cosme cleared her to resume Xarelto, but she has not done so yet. She wanted to discuss with Dr. Burnett first. Still denies chest pain, SOB, palpitations, and bleeding. Patient expressed interest in the Watchman/Amulet device. Review of Systems Musculoskeletal: Positive for muscle weakness. All other systems reviewed and are negative. [facility] 10-18-2022 Note [facility] PRO[facility] ESS NOTE HPI: Jacquelyn Kaplan is a 77 y.o. female here for routine follow up. 77 yo female with a past medical history including HTN, HF with recovered EF, and severe aortic stenosis s/p TAVR placement. Patient was recently hospitalized secondary to profound anemia. She required 5 units of blood transfusion, as per her report. She had upper and lower endoscopy, no definite source of bleeding was found. Xarelto and aspirin were discontinued. She was instructed to follow-up with cardiology for instructions regarding anticoagulation and antiplatelet. Today, patient states that she is doing well. She denies any cardiac complaints or concerns. She denies any melena or hematemesis. She has been off of her Xarelto and aspirin since discharge. She denies any chest pain. She denies any shortness of breath. She denies any lower extremity edema, orthopnea, paroxysmal nocturnal dyspnea. Overall, she states that she is doing well. Review of Systems Respiratory: Negative. Negative for chest tightness and shortness of breath. Cardiovascular: Negative for chest pain, palpitations and leg swelling. Neurological: Negative for dizziness and light-headedness. Visit Vitals BP 127/58 (BP Location: Right wrist, Patient Position: Sitting) Pulse 62 Ht 1.6 m (5' 3 ) SpO2 92% BMI 48.18 kg/m??? Smoking Status Never BSA 2.34 m??? Allergies Allergen Reactions Sulfa (Sulfonamide Antibiotics) Anaphylaxis Medications: Current Outpatient Medications on File Prior to Visit Medication Sig Dispense Refill Alpha tocopherol (Vitamin E) 200 unit capsule Take 400 Units by mouth in the morning. amiodarone (Pacerone) 100 mg tablet Take 100 mg by mouth in the morning. amitriptyline (Elavil) 25 mg tablet Take 1 tablet by mouth at bedtime. atorvastatin (Lipitor) 40 mg tablet Take 1 tablet every day by oral route for 30 days. calcium citrate-vitamin D3 (Citracal+D) 315 mg-5 mcg (200 unit) tablet Take 1 tablet by mouth in the morning and 1 tablet in the evening. carvedilol (Coreg) 3.125 mg tablet Take 1 tablet (3.125 mg) by mouth in the morning and at bedtime. 180 tablet 3 coenzyme Q-10 100 mg capsule Take 100 mg by mouth 1 (one) time each day at the same time. furosemide (Lasix) 40 mg tablet Take 1 tablet twice a day by oral route for 30 days. glipiZIDE (Glucotrol) 5 mg tablet Take 1 tablet twice a day by oral route. levothyroxine (Tirosint) 125 mcg capsule Take by mouth before breakfast. lisinopril 10 mg tablet Take 1 tablet every day by oral route for 30 days. metFORMIN XR (Glucophage-XR) 500 mg 24 hr tablet Take 500 mg by mouth in the morning and at bedtime. potassium chloride CR (Klor-Con) 10 mEq ER tablet Take 1 tablet every day by oral route. sertraline (Zoloft) 50 mg tablet Take 50 mg by mouth in the morning. spironolactone (Aldactone) 25 mg tablet Take 1 tablet every day by oral route for 30 days. [DISCONTINUED] amiodarone (Pacerone) 200 mg tablet Take 0.5 tablets every day by oral route for 90 days. aspirin 81 mg EC tablet Take 1 tablet every day by oral route. Xarelto 20 mg tablet Take 20 mg by mouth in the morning. [DISCONTINUED] levothyroxine (Synthroid, Levoxyl) 150 mcg tablet Take 150 mcg by mouth before breakfast. No current facility-administered medications on file prior to visit. Physical Exam: Constitutional: Appearance: Normal appearance. Without apparent distress, obese, chronically ill HENT: Head: Normocephalic and atraumatic. Nose: Nose normal. Mouth/Throat: Mouth: Mucous membranes are moist. Eyes: Extraocular Movements: Extraocular movements intact. Conjunctiva/sclera: Conjunctivae normal. Neck: Vascular: No JVD. Cardiovascular: Rate and Rhythm: Normal rate and regular rhythm. Pulses: Dorsalis pedis pulses are 3 on the right side and 3on the left side. Posterior tibial pulses are 3 on the right side and 3 on the left side. Heart sounds: Normal heart sounds, S1 normal and S2 normal. Pulmonary: Effort: Pulmonary effort is normal. Breath sounds: Normal breath sounds. Abdominal: General: Bowel sounds are normal. Palpations: Abdomen is soft. Musculoskeletal: General: Normal range of motion. Cervical back: Normal range of motion. Right lower le+ edema. Left lower le+ edema. Skin: General: Skin is warm and dry. Capillary Refill: Capillary refill takes less than 2 seconds. Neurological: General: No focal deficit present. Mental Status: She is alert and oriented to person, place, and time. Psychiatric: Mood and Affect: Mood normal. Behavior: Behavior normal. Thought Content: Thought content normal. Judgment: Judgment normal. CV Testin04/2021 Echo Assessment/Plan: Chronic systolic congestive heart failure (CMS/HCC) No complaints. Euvolemic on exam Continue GDMT- lipitor, lisinopril, lasix, aldactone and coreg Diuretic therapy- lasix- fairly euvolemic and stable Monitor daily weights, I (more content not included)... [facility] 10-18-2022 Note Patient here for fol low up [facility] discharge for GI bleed. She takes Xarelto for afib, but this was stopped, along with aspirin. Chest tightness and SOB has resolved and she's feeling much better. Doing more walking throughout her house. Denies lightheadedness and falls. Review of Systems Musculoskeletal: Positive for muscle weakness. All other systems reviewed and are negative. [facility] 10-11-2022 Note i [facility] 09-22-2022 Note [facility] Subjective Jacquelyn Kaplan is a 77 y.o. year old female patient being seen for Follow-up (Patient is here today per Dr burnett request ) and Valve Disorder Patient Active Problem List Diagnosis Atrial fibrillation (CMS/HCC) Chronic systolic congestive heart failure (CMS/HCC) Nonrheumatic aortic valve stenosis S/p TAVR (transcatheter aortic valve replacement), bioprosthetic Family History Problem Relation Name Age of Onset Aortic stenosis Father Other (CABG) Father Social History Tobacco Use Smoking status: Never Smokeless tobacco: Never Substance Use Topics Alcohol use: Not Currently HPI This is a 77-year-old woman who is referred to me by [place]. I have not met her before. She has had history of aortic valve stenosis status post TAVR in May 2018 at [facility]. This was using a 23 mm [place] HOLLIS balloon expandable valve. Prior medical history includes paroxysmal atrial fibrillation for which she is on anticoagulation, chronic systolic heart failure with improved ejection fraction, And hypertension and dyslipidemia. The concern is in relation to elevated velocities across the TAVR prostheses. currently she reports that she has been doing very well. She denies any symptoms of angina or heart failure. Review of Systems All other systems reviewed and are negative. Objective Visit Vitals BP 100/56 (BP Location: Left arm, Patient Position: Sitting, BP Cuff Size: Adult) Pulse 60 Resp 12 Ht 1.6 m (5' 3 ) SpO2 94% BMI 48.18 kg/m??? Smoking Status Never BSA 2.34 m??? Physical Exam Constitutional: Appearance: She is well-developed. She is obese. She is not ill-appearing. HENT: Head: Normocephalic and atraumatic. Nose: Nose normal. Eyes: General: No scleral icterus. Pupils: Pupils are equal, round, and reactive to light. Neck: Thyroid: No thyromegaly. Vascular: No JVD. Cardiovascular: Rate and Rhythm: Normal rate and regular rhythm. Pulses: Radial pulses are 2+ on the right side and 2+ on the left side. Heart sounds: Murmur heard. Systolic (RUSB) murmur is present with a grade of 2/6. No friction rub. No gallop. Pulmonary: Effort: Pulmonary effort is normal. No respiratory distress. Breath sounds: Normal breath sounds. No wheezing or rales. Chest: Chest wall: No tenderness. Abdominal: General: Bowel sounds are normal. There is no distension. Palpations: Abdomen is soft. Tenderness: There is no abdominal tenderness. Musculoskeletal: General: No swelling. Cervical back: Neck supple. Right lower le+ Pitting Edema present. Left lower le+ Pitting Edema present. Comments: Left leg in boots after ankle surgery In wheelchair Skin: General: Skin is warm and dry. Neurological: General: No focal deficit present. Mental Status: She is alert and oriented to person, place, and time. Psychiatric: Mood and Affect: Mood normal. Behavior: Behavior is cooperative. Judgment: Judgment normal. Allergies Allergies Allergen Reactions Sulfa (Sulfonamide Antibiotics) Anaphylaxis Medications Current Outpatient Medications: Alpha tocopherol (Vitamin E) 200 unit capsule, Take 400 Units by mouth in the morning., Disp: , Rfl: amiodarone (Pacerone) 200 mg tablet, Take 0.5 tablets every day by oral route for 90 days., Disp: , Rfl: amitriptyline (Elavil) 25 mg tablet, Take 1 tablet by mouth at bedtime., Disp: , Rfl: aspirin 81 mg EC tablet, Take 1 tablet every day by oral route., Disp: , Rfl: atorvastatin (Lipitor) 40 mg tablet, Take 1 tablet every day by oral route for 30 days., Disp: , Rfl: calcium citrate-vitamin D3 (Citracal+D) 315 mg-5 mcg (200 unit) tablet, Take 1 tablet by mouth in the morning and 1 tablet in the evening., Disp: , Rfl: carvedilol (Coreg) 3.125 mg tablet, Take 1 tablet (3.125 mg) by mouth in the morning and at bedtime., Disp: 180 tablet, Rfl: 3 coenzyme Q-10 100 mg capsule, Take 100 mg by mouth 1 (one) time each day at the same time., Disp: , Rfl: furosemide (Lasix) 40 mg tablet, Take 1 tablet twice a day by oral route for 30 days., Disp: , Rfl: glipiZIDE (Glucotrol) 5 mg tablet, Take 1 tablet twice a day by oral route., Disp: , Rfl: levothyroxine (Synthroid, Levoxyl) 150 mcg tablet, Take 150 mcg by mouth before breakfast., Disp: , Rfl: lisinopril 10 mg tablet, Take 1 tablet every day by oral route for 30 days., Disp: , Rfl: metFORMIN XR (Glucophage-XR) 500 mg 24 hr tablet, Take 500 mg by mouth in the morning and at bedtime., Disp: , Rfl: potassium chloride CR (Klor-Con) 10 mEq ER tablet, Take 1 tablet every day by oral route., Disp: , Rfl: sertraline (Zoloft) 50 mg tablet, Take 50 mg by mouth in the morning., Disp: , Rfl: spironolactone (Aldactone) 25 mg tablet, Take 1 tablet every day by oral route for 30 days., Disp: , Rfl: Xarelto 20 mg tablet, Take 20 mg by mouth in the morning., Disp: , Rfl: Recent (more content not included)... [facility] 07-17-2022 Note [facility] PRO[facility] ESS NOTE HPI: Jacquelyn Kaplan is a 77 y.o. female here for routine follow up. 77 yo female with a past medical history including HTN, HF with recovered EF, and severe aortic stenosis s/p TAVR placement. Today, patient states that she is doing well. She denies any cardiac complaints or concerns. No chest pain or shortness of breath. No lower extremity edema, orthopnea, or PND. No near syncope or syncope. Unclear functional capacity. Review of Systems Respiratory: Negative. Negative for chest tightness and shortness of breath. Cardiovascular: Negative for chest pain, palpitations and leg swelling. Neurological: Negative for dizziness and light-headedness. Visit Vitals BP 135/52 (BP Location: Right wrist, Patient Position: Sitting) Pulse 66 Ht 1.6 m (5' 3 ) SpO2 92% BMI 48.18 kg/m??? Smoking Status Never BSA 2.34 m??? Allergies Allergen Reactions Sulfa (Sulfonamide Antibiotics) Anaphylaxis Medications: Current Outpatient Medications on File Prior to Visit Medication Sig Dispense Refill Alpha tocopherol (Vitamin E) 200 unit capsule Take 400 Units by mouth in the morning. amiodarone (Pacerone) 200 mg tablet Take 0.5 tablets every day by oral route for 90 days. amitriptyline (Elavil) 25 mg tablet Take 1 tablet by mouth at bedtime. apixaban (Eliquis) 5 mg tablet Take 1 tablet twice a day by oral route. aspirin 81 mg EC tablet Take 1 tablet every day by oral route. atorvastatin (Lipitor) 40 mg tablet Take 1 tablet every day by oral route for 30 days. calcium citrate-vitamin D3 (Citracal+D) 315 mg-5 mcg (200 unit) tablet Take 1 tablet by mouth in the morning and 1 tablet in the evening. coenzyme Q-10 100 mg capsule Take 100 mg by mouth 1 (one) time each day at the same time. furosemide (Lasix) 40 mg tablet Take 1 tablet twice a day by oral route for 30 days. glipiZIDE (Glucotrol) 5 mg tablet Take 1 tablet twice a day by oral route. levothyroxine (Synthroid, Levoxyl) 150 mcg tablet Take 150 mcg by mouth before breakfast. lisinopril 10 mg tablet Take 1 tablet every day by oral route for 30 days. metFORMIN XR (Glucophage-XR) 500 mg 24 hr tablet Take 500 mg by mouth in the morning and at bedtime. potassium chloride CR (Klor-Con) 10 mEq ER tablet Take 1 tablet every day by oral route. sertraline (Zoloft) 50 mg tablet Take 50 mg by mouth in the morning. spironolactone (Aldactone) 25 mg tablet Take 1 tablet every day by oral route for 30 days. [DISCONTINUED] carvedilol (Coreg) 3.125 mg tablet Take 1 tablet by mouth in the morning and at bedtime. No current facility-administered medications on file prior to visit. Physical Exam: Constitutional: Appearance: Normal appearance. Without apparent distress, obese, chronically ill HENT: Head: Normocephalic and atraumatic. Nose: Nose normal. Mouth/Throat: Mouth: Mucous membranes are moist. Eyes: Extraocular Movements: Extraocular movements intact. Conjunctiva/sclera: Conjunctivae normal. Neck: Vascular: No JVD. Cardiovascular: Rate and Rhythm: Normal rate and regular rhythm. Pulses: Dorsalis pedis pulses are 3 on the right side and 3on the left side. Posterior tibial pulses are 3 on the right side and 3 on the left side. Heart sounds: Normal heart sounds, S1 normal and S2 normal. Pulmonary: Effort: Pulmonary effort is normal. Breath sounds: Normal breath sounds. Abdominal: General: Bowel sounds are normal. Palpations: Abdomen is soft. Musculoskeletal: General: Normal range of motion. Cervical back: Normal range of motion. Right lower le+ edema. Left lower le+ edema. Skin: General: Skin is warm and dry. Capillary Refill: Capillary refill takes less than 2 seconds. Neurological: General: No focal deficit present. Mental Status: She is alert and oriented to person, place, and time. Psychiatric: Mood and Affect: Mood normal. Behavior: Behavior normal. Thought Content: Thought content normal. Judgment: Judgment normal. CV Testin04/2021 Echo Assessment/Plan: Chronic systolic congestive heart failure (CMS/HCC) No complaints. Euvolemic on exam Continue GDMT- ASA, lipitor, lisinopril, lasix, aldactone and coreg Diuretic therapy- lasix- fairly euvolemic and stable Monitor daily weights, I&O, fluid restriction 1.5-2L/day, renal function and electrolytes Atrial fibrillation (CMS/HCC) Continue eliquis 5 mg bid, amiodarone, and coreg S/p TAVR (transcatheter aortic valve replacement), bioprosthetic Noted increase doppler flow of AO bioprosthetic valve Patient adamantly denies any complaints or concerns Unclear functional status Repeat Echo -Optimize medical management -Aggressive risk factor modification -Plan of care discussed with patient. All questions were answered. Patient voices understanding and is agreeable with current plan. -Patient was educated on red flag symptoms. Strict return precautions were provided. Patient verbal (more content not included)... [facility] 07-17-2022 Note Patient here for 6 m o follow up PAF, aortic valve disorder, CHF, carotid artery stenosis, and hypertension. She had echo in Feb 2022 at [facility]. Denies chest pain, SOB, palpitations, and bleeding on Eliquis. Had routine labs in April 2022. Review of Systems Respiratory: Positive for cough. Musculoskeletal: Positive for arthritis, back pain, joint pain, muscle weakness and myalgias. Neurological: Positive for loss of balance. All other systems reviewed and are negative. [facility] 03-22-2022 Note PROCEDURE: XR ANKLE LT MIN 3 V COMPARISON: 09/28/2021 HISTORY: Pain of left ankle joint FINDINGS: BONES:Stable talus resection with ankle fusion utilizing a intramedullary nail, pinned proximally and distally. Stable degenerative changes with joint space narrowing, marginal osteophyte formation and heterotopic ossification. Diffuse osteopenia. No acute fracture, dislocation or mechanical failure. Stable periprosthetic lucency, unchanged. One of the calcaneus and fixation screws extends beyond the anterior margin of the tibia by 1.5 cm SOFT TISSUES:Negative. No visible soft tissue swelling. EFFUSION:None visible. OTHER: Negative. IMPRESSION: Stable exam Electronically authenticated by: FABRICIO BANKS Date: 2022-03-22 10:42 [facility] 09-29-2021 Note PROCEDURE: XR ANKLE LT MIN 3 V HISTORY: Pain of left ankle joint COMPARISON: XR ankle left 04/21/2021 FINDINGS: BONES:Ankle joint and hindfoot fusion via intramedullary melissa and locking screws; no evidence of hardware fracture or loosening. Platelike screw traversing the calcaneus and distal tibia extends 15 mm anterior to the distal tibia, unchanged. Marked degenerative changes the midfoot. Prominent ossification medial to the ankle joint; likely sequela of prior surgery. Prior resection of the lateral malleolus. SOFT TISSUES:Soft tissue swelling surrounding the ankle. Atherosclerotic disease. EFFUSION:None visible. OTHER: Negative. IMPRESSION: 1. Stable surgical changes without evidence of hardware failure or change in alignment. 2. No appreciable acute abnormality. Electronically authenticated by: GENE BERMUDEZ Date: 2021-09-29 10:11 [facility] Evaluation note No assessment information [facility] Work Phone: Summary Purpose Family History No Family History Records Found Relationship Condition Age at Onset Recorded Date/T oliver Not Specified Malignant neoplasm of pancreas Unknown father Malignant neoplasm of kidney Unknown Malignant neoplasm of liver Unknown Advance Directives No Advanced Directives Records Found Advance Directive Response Recorded Date/ Time Advance Directives No October 10:12am Hospital Course Note MR#: [id number] [facility] Pt. Name: Jacquelyn Kaplan Admitted: 03/09/2018 Discharged: 03/13/2018 Date of : 1945 Physician: Pham Simmons MD DISCHARGE SUMMARY DISCHARGING PHYSICIAN: Pham Simmons MD. PRIMARY CARE PHYSICIAN: Facility Physician. PRIMARY DIAGNOSES: 1. Atrial fibrillation with rapid ventricular response, now sinus. 2. Severe aortic stenosis. 3. Acute congestive heart failure with reduced ejection fraction improved. 4. Bilateral lower extremity edema with chronic venous stasis changes. SECONDARY DIAGNOSES: 1. Hypothyroidism. 2. Diabetes mellitus type 2, controlled. CONSULTS: Cardiology and Vascular. PROCEDURES AND IMAGING: Cardiac catheterization and BRIGIDO. HOSPITAL COURSE: This is a 72-year-old female with past medical history significant for chronic bilateral lower extremity edema, diabetic neuropathy, diabetes mellitus type 2, Charcot joints in left foot, hypothyroidism, hypertension, and osteoarthritis, transferred from (more content not included)... Note MR#: [id number] [facility] Pt. Name: Jacquelyn Kaplan Admitted: 03/18/2018 Discharged: 03/24/2018 Date of : 1945 Physician: Pham Gabriel MD DISCHARGE SUMMARY PRINCIPAL DIAGNOSES: 1. Severe aortic stenosis, seen by Cardiology and CT surgeon. 2. Acute respiratory failure due to pulmonary edema, clinically improved. 3. Acute on chronic congestive heart failure, systolic. SECONDARY DIAGNOSES: Type 2 diabetes mellitus, hypertension, hypothyroidism, chronic atrial fibrillation, hypokalemia, chronic leg edema and wound. REASON FOR ADMISSION: The patient is a 72-year-old lady, who presented with shortness of breath, which came suddenly on the night before coming to the hospital. There was no chest pain. She went to [facility], was found to have elevated BNP. She was placed on BiPAP, was started on Lasix because of pulmonary edema showing up on the chest x-ray. The patient was also noted to have atrial fibrillation. She has history of ch (more content not included)... Chief Complaint and Reason for Visit Chief Complaint GI Bleed Iron Deficiency Anemia Due to Chronic Blood Loss Additional Source Comments INFORMATION SOURCE (unrecogn ized section and content) DATE CREATED AUTHOR 03/26/2018 [facility] DATE CREATED AUTHOR AUTHOR'S ORGANIZ ATION 05/10/2022 [facility] DATE CREATED AUTHOR AUTHOR'S ORGANIZ ATION 11/08/2022 [facility] DATE CREATED AUTHOR AUTHOR'S ORGANIZ ATION 01/15/2023 [facility] DATE CREATED AUTHOR AUTHOR'S ORGANIZ ATION 01/17/2023 [facility] Care Teams (unrecognized sec tion and content) Team Status: Active Member Role Status Dates Gumaro Ordonez MD Primary Care Provider Active Team Status: Inactive Member Role Status Dates Joe Cosme MD Attending Provider Active Gumaro Ordonez MD Primary Care Provider Active Team Status: Inactive Member Role Status Dates Gumaro Ordonez MD Primary Care Provider Active Joe Cosme MD Attending Provider Active FOR RECORDS PERTAINING TO PATIENTS WHO ARE OR HAVE BEEN ENROLLED IN A CHEMICAL DEPENDENCY/SUBSTANCEABUSE PROGRAM, SOME INFORMATION MAY BE OMITTED. This clinical summary was aggregated from multiple sources. Caution should be exercised in using it in the provision of clinical care. This summary normalizes information from multiple sources, and as a consequence, information in this document may materially change the coding, format and clinical context of patient data. In addition, data may be omitted in some cases. CLINICAL DECISIONS SHOULD BE BASED ON THE PRIMARY CLINICAL RECORDS. [employer] provides no warranty or guarantee of the accuracy or completeness of information in this document.
== END 2023-02-06 09:15 | disposition home or self-care (01) ==
LOC: WC 09:15
PROVIDERS: PCP Family Medicine; Visit Provider Podiatrist Foot & Ankle Surgery
DX: E11.621 Type 2 diabetes mellitus with foot ulcer (principal); L97.428 Non-pressure chronic ulcer of left heel and midfoot with other specified severity; L97.421 Non-pressure chronic ulcer of left heel and midfoot limited to breakdown of skin
CPT/HCPCS: 11042; 11045

== ENCOUNTER 2023-02-06 10:16 | Outpatient (OUT) | payer MEDICARE, SELFPAY ==
[2023-02-06 10:35] LABS: Basophils Absolute Auto 0.1 10^3/uL (0.0-0.1); Basophils Percent Auto 0.7 % (0.2-2.0); Eosinophils Absolute Auto 0.2 10^3/uL (0.0-0.7); Eosinophils Percent Auto 1.9 % (0.9-7.0); Hematocrit 35.4 % (36.0-48.0); Hemoglobin 10.6 g/dL (12.0-16.0); Immature Granulocytes Abs Auto 0.02 10^3/uL (0.00-0.03); Immature Granulocytes Pct Auto 0.2 % (0.0-0.5); Lymphocytes Percent Auto 10.6 % (20.5-60.0); Mean Corpuscular HGB Conc 29.9 g/dL (29.9-35.2); Mean Corpuscular Hemoglobin 23.8 pg (26.7-34.0); Mean Corpuscular Volume 79.4 fL (81.0-99.0); Mean Platelet Volume 9.5 fL (9.5-13.5); Monocytes Absolute Auto 0.5 10^3/uL (0.3-0.8); Monocytes Percent Auto 4.9 % (1.7-12.0); Neutrophils Absolute Auto 7.7 10^3/uL (1.4-6.5); Neutrophils Percent Auto 81.7 % (43.0-75.0); Platelet Count 217 10^3/uL (150-450); Red Blood Count 4.46 10^6/uL (4.20-5.40); Red Cell Distribution Width 17.1 % (11.0-15.0); White Blood Count 9.4 10^3/uL (4.0-11.0)
[2023-02-06 10:41] LABS: Erythrocyte Sedimentation Rate 108 mm/hr (<=30)
[2023-02-06 12:03] LABS: Anion Gap 12.7; BUN Creatinine Ratio 27.2; Calcium 9.9 mg/dL (8.5-10.1); Carbon Dioxide 30.5 mmol/L (21.0-32.0); Chloride 93 mmol/L (98-107); Estimated GFR (African America 30 (>=60); Estimated GFR (Non-African Ame 25 (>=60); Glucose 281 mg/dL (74-106); Potassium 4.2 mmol/L (3.5-5.1); Sodium 132 mmol/L (136-145)
[2023-02-06 12:13] LABS: C Reactive Protein 0.59 mg/dL (<=0.50)
== END 2023-02-06 10:17 | disposition home or self-care (01) ==
LOC: LAB 10:18
PROVIDERS: PCP Family Medicine; Visit Provider Podiatrist Foot & Ankle Surgery
DX: I87.8 Other specified disorders of veins (principal)
CPT/HCPCS: 36415; 80048; 85025; 85652; 86140

== ENCOUNTER 2023-02-12 09:50 | Outpatient (OUT) | payer MEDICARE, SELFPAY ==
--- OUTSIDE RECORDS SUMMARY | 2023-02-12 09:54 | XMS_ITS | CCD ---
Author Name Unknown Address [address] [place] [address] Organization [facility] Care Team Providers Care Education Program Specialist Name Role Phone STEPHANIE CARBALLO Referring Unavailable SELF, REFERRED Primary Care Unavailable RAGHAVENDRA PERRY Admitting Unavailable PHAM SIMMONS Attending Unavailable ME Procedure Practitioner Unavailab OMEGA Ramirez Surgeon Unavailable ME Procedure Practitioner Unavailab NTAA Tinoco ABD Surgeon Unavailable PHAM GABRIEL Admitting [...] NADERER, DR GUMARO Fernandes Primary Care Unavailable LAMBERTVILLE, DR FABRICIO Novak Consulting Unavailable HIGHLANDER, ROSA Wadsworth Admitting Unavailable HIGHLANDER, ROSA Wadsworth Attending Unavailable HIGHLANDER, PETER D Consulting Unavailable Mikey NIELSON Attending Unavailable MD Joe Cosme Attending Provider [phone] MD Gumaro Ordonez Primary Care Provider [phone] DEN BURNETT Attending Unavailable JOLENE CARR Attending [...] [SULFA (SULFONAMIDE ANTIBIOTICS)] Drug allergy (disorder) 07-11-2013 [facility] Repository (1 source) Sulfonamides (Antibiotic) Drug allergy (disorder) 10-27-2022 [facility] Repository Medications Current Medications Medication Drug [...] disease (1 source) Atherosclerotic heart disease of [place] coronary artery without angina pectoris; Translations: [ATHSCL HEART DISEASE OF [place] CORONARY ARTERY W/O ANG PCTRS] Onset: 9 [...] 9 Chronic Other aftercare (1 source) 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; Translations: [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 Office Visiton 11-14-2022 Follow-up visit [id number] Jacquelyn Kaplan 1945 F Date Provider Department Center 11/14/2022 LauraDEN FABIAN EDEN [facility] Family History Problem Relation Age of Onset Aortic stenosis Father Other Father Family Status - Relation Status Age at Father Level of Service:44088 ME OFFICE/OUTPATIENT ESTABLISHED LOW MDM 20-[address] [facility] Glucose Glucometer (BldC) [M ass/Vol]Ordered By: Joe Cosme on 10-27-2022 Glucose [Mass/Vol] 220 mg/dL [facility] Comment on above: Random Glucose Refer ence Range is dependent on time and content of last meal. Glucose of more than 200 mg/dL in a nonstressed, ambulatory subject supports the diagnosis of Diabetes Mellitus. Glucose Poct Glucometerson 0 10-27-2022 Commemt1 Glu2: Cleaned Meter Normal [facility] Comment on above: Result Comment: PERF ORMED BY: [facility] [address] [place] [address] PATHOLOGIST PARIMUTUEL TICKET SELLER NORMA MONTANA M.D. Performed By: #### G LULS #### Point of Care testing , Glucose [Mass/Vol] 220 mg/dL Normal [facility] Comment on above: Result Comment: [place] Glucose Reference Range is dependent on time and content of last meal. Glucose of more than 200 mg/dL in a nonstressed, ambulatory subject supports the diagnosis of Diabetes Mellitus. Performed By: #### G MELODIE #### Point of Care testing , Ryan 10-27-2022 L Specimen: [id number] Received: 10/27/22 Status: TRAVIS Casas Num: [id number] Spec Type: Surgical Subm Dr: Joe Cosme MD Tissues: A Colon Biopsy (ASCND COL) Procedures: HE/Mike Schmidt/Awa L4 Age/ Patient Sex Location Account Attending Physician Jacquelyn Kaplan 77/F [id number] Joe Cosme MD SPEC NUM: [id number] RECD: 10/27/22 STATUS: TRAVIS AMADOR NUM: [id number] DELMY: 10/27/22 DR: Joe Cosme MD ENTERED: 10/27/22 [facility] DR: SPEC TYPE: Surgical DEPT: S ENTERED BY: [id number] RECV BY: [id number] ORDERED: HE/2, Gross/Micro L4 ORDERED: HE/2, Gross/Micro [...] microscopic examination confirms the diagnosis. CPT Codes 69821 Specimen: [id number] Received: 10/27/22 Status: TRAVIS Rereagan Num: [id number] Spec Type: Surgical Subm Dr: Joe Cosme MD Tissues: A Colon Biopsy (ASCND COL) Procedures: HE/2, Gross/Micro L4 Patient: Jacquelyn Kaplan [id number] (Continued) Signed (signatur e on file) Akshat-Ariel Dominguez MD 10/30/22 1331 [facility] No Panel InformationOrdered By: Joe Cosme on 10-27-2022 Bedside Glucose Comment Glu2: cleaned meter [facility] Office Visiton 10-18-2022 Follow-up visit [id number] Jacquelyn Kaplan 1945 F Date Provider Department Center 10/18/2022 3848-DEN BURNETT [facility] Family History Problem Relation Age of Onset Aortic stenosis Father Other Father Family Status - Relation Status Age at Father Level of Service:66476 ME OFFICE/OUTPATIENT ESTABLISHED MOD MDM 30-[address] [facility] Outside Colonoscopyon 2022 Outside Colonoscopy [id number] B#1.00CD:[address] [facility] Lab Reportson 10-16-2022 Lab Reports [id number] 6A#1.00CD:[address] [facility] Lab Reports [id number] D5#1.00CD:[address] [facility] Lab Reports [id number] 6#1.00CD:[address] [facility] Lab Reports [id number] 5#1.00CD:127 [facility] Outside Colonoscopyon 2022 Outside Colonoscopy [id number] 2#1.00CD:127 [facility] Consultation Noteon 10-13-19 Consultation Note [id number] 7F#1.00CD:127 [facility] Consultation Note [id number] 7#1.00CD:127 [facility] Lab Reportson 10-12-2022 Lab Reports [id number] 1#1.00CD:127 [facility] Office Visiton 09-22-2022 Follow-up visit [id number] Jacquelyn Kaplan 1945 F Date Provider Department Center 09/22/2022 367-JOLENE CARR EDEN [facility] Family History Problem Relation Age of Onset Aortic stenosis Father Other Father Family Status - Relation Status Age at Father Level of Service:78907 ME OFFICE/OUTPATIENT ESTABLISHED MOD MDM 30-39 MIN Reason for Visit and Comments: Follow-up [513186] - Patient is here today per Dr burnett request Valve Disorder [3372] [facility] 36on 08-14-2022 36 Pt called in requesting a refill [facility] Office Visiton 07-17-2022 Follow-up visit [id number] Che 1945 F Date Provider Department Center 07/17/2022 3848-DEN BURNETT EDEN [facility] Family History Problem Relation Age of Onset Aortic stenosis Father Other Father Family Status - Relation Status Age at Father Level of Service:14937 ME OFFICE/OUTPATIENT ESTABLISHED LOW MDM 20-[address] [facility] CBC AUTO DIFFon 05-01-2022 BASO # 0.1 103/ul Normal 0.0-0.[address] [facility] Comment on above: Performed By: #### C BC ####[facility] [address] [place] [address]Dr. Sugey Dominguez Basophils/100 WBC (Bld) 0.8 % Normal 0.2-2.0 [facility] Comment on above: Performed By: #### C BC ####[facility] [address] [place] [address]Dr. Sugey Dominguez EO # 0.2 103/ul Normal 0.0-0.[address] [facility] Comment on above: Performed By: #### C BC ####[facility] [address] [place] [address]Dr. Sugey Dominguez Eosinophils/100 WBC (Bld) 3.5 % Normal 0.9-7.[address] [facility] Comment on above: Performed By: #### C BC ####[facility] [address] [place] [address]Dr. Sugey Dominguez Erythrocyte distribution width (RBC) [Ratio] 13.6 % Normal 11.0-15.[address] [facility] Comment on above: Performed By: #### C BC ####[facility] [address] [place] [address]Dr. Sugey Dominguez Hematocrit (Bld) [Volume fraction] 40.7 % Normal 36.0-48.[address] [facility] Comment on above: Performed By: #### C BC ####[facility] [address] [place] [address]Dr. Sugey Dominguez Hemoglobin (Bld) [Mass/Vol] 13.5 g/dL Normal 12.0-16.[address] [facility] Comment on above: Performed By: #### C BC ####[facility] [address] [place] [address]Dr. Sugey Dominguez IG # 0.03 10e3/ul Normal 0.00-0.[address] [facility] Comment on above: Performed By: #### C BC ####[facility] [address] [place] [address]Dr. Sugey Dominguez IG % 0.5 % Normal 0.0-0.[address] [facility] Comment on above: Performed By: #### C BC ####[facility] [address] [place] [address]Dr. Sugey Dominguez LYMPH # 1.5 103/ul Normal 1.2-3.[address] [facility] Comment on above: Performed By: #### C BC ####[facility] [address] [place] [address]DrDarci Dominguez Lymphocytes/100 WBC (Bld) 23.1 % Normal 20.5-60.[address] [facility] Comment on above: Performed By: #### C BC ####[facility] [address] [place], [place] [address]DrDarci Dominguez MANUAL DIFF REQ NO Normal [facility] Comment on above: Performed By: #### C BC ####[facility] [address] [place] [id number]. Sugey Dominguez MCH (RBC) [Entitic mass] 30.8 pg Normal 26.7-34.[address] [facility] Comment on above: Performed By: #### C BC ####[facility] [address] [place] [id number]. Sugey Dominguez MCHC (RBC) [Mass/Vol] 33.2 g/dL Normal 29.9-35.[address] [facility] Comment on above: Performed By: #### C BC ####[facility] [address] [place] [id number] Dominguez MCV (RBC) [Entitic vol] 92.7 fL Normal 81.0-99.0 [facility] Comment on above: Performed By: #### C BC ####[facility] [address] [place] [address]DrDarci Dominguez MONO # 0.4 103/ul Normal 0.3-0.[address] [facility] Comment on above: Performed By: #### C BC ####[facility] [address] [place] [id number]. Sugey Dominguez Monocytes/100 WBC (Bld) 6.8 % Normal 1.7-12.0 [facility] Comment on above: Performed By: #### C BC ####[facility] [address] [place] [address]Dr. Sugey Dominguez NEUT # 4.2 103/ul Normal 1.4-6.[address] [facility] Comment on above: Performed By: #### C BC ####[facility] [address] [place] [id number]. Sugey Dominguez Neutrophils/100 WBC (Bld) 65.3 % Normal 43.0-75.[address] [facility] Comment on above: Performed By: #### C BC ####[facility] [address] [place] [id number]. Sugey Dominguez Platelet mean volume (Bld) [Entitic vol] 10.1 fL Normal 9.5-13.[address] [facility] Comment on above: Performed By: #### C BC ####[facility] [address] [place] [id number]. Sugey Dominguez PLT 166 103/ul Normal 150-[address] [facility] Comment on above: Performed By: #### C BC ####[facility] [address] [place] [id number]. Sugey Dominguez RBC 4.39 106/ul Normal 4.20-5.[address] [facility] Comment on above: Performed By: #### C BC ####[facility] [address] [place] [id number]. Sugey Dominguez WBC 6.4 103/ul Normal 4.0-11.0 [facility] Comment on above: Performed By: #### C BC ####[facility] [address] [place] [id number]. Sugey Dominguez FREE T3on 05-01-2022 FREE T3 1.80 pg/mlL Critically low 2.18-3.98 [facility] Comment on above: Performed By: #### L IPID, FT3, TSH, LIVER, BMP #### [facility] [address] [place] [address] [address] Sugey Dominguez FREE T4on 05-01-2022 Free T4 [Mass/Vol] 1.40 ng/dL Normal 0.76-1.46 [facility] Comment on above: Performed By: #### F T4 #### [facility] [address] [place] [address] Dr. Sugey Dominguez GLYCOHEMOGLOBIN A1Con 2022 ADA RECOMMENDATION SEE BELOW Normal [facility] Comment on above: Result Comment: ADA RECOMMENDED LIMIT 4.0 - 6.0 ADA THERAPEUTIC TARGET < 7.0 ACTION SUGGESTED > 7.0 Performed By: #### A 1C #### [facility] [address] [place] [address] Dr. Sugey Dominguez Glucose [Mass/Vol] 174 mg/dL Normal [facility] Comment on above: Performed By: #### A 1C #### [facility] [address] [place] [address] Dr. Sugey Dominguez HbA1c (Bld) [Mass fraction] 7.7 % Critically high 4.5-6.[address] [facility] Comment on above: Performed By: #### A 1C #### [facility] [address] [place] [address] Dr. Sugey Dominguez LIPID PROFILEon 05-01-2022 CHOL-HDL RATIO NORM SEE BELOW Normal [facility] Comment on above: Result Comment: 3.3 - 4.4 LOW RISK 4.4 - 7.1 AVERAGE RISK 7.1 - 11.0 MODERATE RISK >11.0 HIGH RISK Performed By: #### L IPID, FT3, TSH, LIVER, BMP #### [facility] [address] [place] [address] Dr. Sugey Dominguez Cholesterol [Mass/Vol] 176 mg/dL Normal <=200 Th [facility] Comment on above: Performed By: #### L IPID, FT3, TSH, LIVER, BMP #### [facility] [address] [place] [address] Dr. Sugey Dominguez Cholesterol in HDL [Mass/Vol] 48 mg/dL Normal 40-[address] [facility] Comment on above: Performed By: #### L IPID, FT3, TSH, LIVER, BMP #### [facility] [address] [place] [address] [address] Sugey Dominguez Cholesterol in LDL [Mass/Vol] 80.4 mg/dL Normal [facility] Comment on above: Performed By: #### L IPID, FT3, TSH, LIVER, BMP #### [facility] [address] [place] [address] [address] Sugey Dominguez Cholesterol.total/Marina sterol in HDL [Mass ratio] 3.7 {ratio} Normal [facility] Comment on above: Performed By: #### L IPID, FT3, TSH, LIVER, BMP #### [facility] [address] [place] [address] [address] Sugey Dominguez HDL NORMAL > or = 60 mg/dl - LOW CARDIOVASCULAR RISK <40 mg/dl - HIGH CARDIOVASCULAR RISK Normal [facility] Comment on above: Performed By: #### L IPID, FT3, TSH, LIVER, BMP #### [facility] [address] [place] [address] [address] Sugey Dominguez LDL CALC NORMAL SEE BELOW Normal [facility] Comment on above: Result Comment: <100 mg/dl OPTIMAL 100 - 129 mg/dl NEAR OR ABOVE OPTIMAL 130 - 159 mg/dl BORDERLINE HIGH 160 - 189 mg/dl HIGH >190 mg/dl VERY HIGH Performed By: #### L IPID, FT3, TSH, LIVER, BMP #### [facility] [address] [place] [address] [address] Sugey Dominguez Triglyceride [Mass/Vol] 238 mg/dL Critically high <=150 [facility] Comment on above: Performed By: #### L IPID, FT3, TSH, LIVER, BMP #### [facility] [address] [place] [address] [address] Sugey Dominguez VLDL CALC 47.6 mg/dL Normal [facility] Comment on above: Performed By: #### L IPID, FT3, TSH, LIVER, BMP #### [facility] [address] [place] [address] Dr. Sugey Dominguez LIVER PROFILEon 05-01-2022 Albumin [Mass/Vol] 3.8 g/dL Normal 3.4-5.0 [facility] Comment on above: Performed By: #### L IPID, FT3, TSH, LIVER, BMP #### [facility] [address] [place] [address] Dr. Sugey Dominguez Albumin/Globulin [Mass ratio] 0.9 {ratio} Normal [facility] Comment on above: Performed By: #### L IPID, FT3, TSH, LIVER, BMP #### [facility] [address] [place] [address] Dr. Sugey Dominguez ALP [Catalytic activity/Vol] 81 U/L Normal 46-[address] [facility] Comment on above: Performed By: #### L IPID, FT3, TSH, LIVER, BMP #### [facility] [address] [place] [address] Dr. Sugey Dominguez ALT [Catalytic activity/Vol] 23 U/L Normal 14-[address] [facility] Comment on above: Performed By: #### L IPID, FT3, TSH, LIVER, BMP #### [facility] [address] [place] [address] Dr. Sugey Dominguez AST [Catalytic activity/Vol] 15 U/L Normal 15-[address] [facility] Comment on above: Performed By: #### L IPID, FT3, TSH, LIVER, BMP #### [facility] [address] [place] [address] Dr. Sugey Dominguez BILI, CONJUGATED 0.2 mg/dL Normal 0.0-0.2 [facility] Comment on above: Performed By: #### L IPID, FT3, TSH, LIVER, BMP #### [facility] [address] [place] [address] Dr. Sugey Dominguez Bilirubin [Mass/Vol] 0.6 mg/dL Normal 0.2-1.[address] [facility] Comment on above: Performed By: #### L IPID, FT3, TSH, LIVER, BMP #### [facility] [address] [place] [address] Dr. Sugey Dominguez Globulin (S) [Mass/Vol] 4.0 g/dL Normal T [facility] Comment on above: Performed By: #### L IPID, FT3, TSH, LIVER, BMP #### [facility] [address] [place] [address] Dr. Sugey Dominguez Protein [Mass/Vol] 7.8 g/dL Normal 6.4-8.2 [facility] Comment on above: Performed By: #### L IPID, FT3, TSH, LIVER, BMP #### [facility] [address] [place] [address] Dr. Sugey Dominguez MICROALBUMIN, RAND URon 04-06 mALB <1.3 Normal <=30.[address] [facility] Comment on above: Performed By: #### M ALBR #### [facility] [address] [place] [address] Dr. Sugey Dominguez PROF CHEM 8 (BAS METB)on Anion gap [Moles/Vol] 12.9 mmol/L Normal [facility] Comment on above: Performed By: #### L IPID, FT3, TSH, LIVER, BMP #### [facility] [address] [place] [address] Dr. Sugey Dominguez Calcium [Mass/Vol] 9.6 mg/dL Normal 8.5-10.1 [facility] Comment on above: Performed By: #### L IPID, FT3, TSH, LIVER, BMP #### [facility] [address] [place] [address] Dr. Sugey Dominguez Chloride [Moles/Vol] 96 mmol/L Critically low 98-[address] [facility] Comment on above: Performed By: #### L IPID, FT3, TSH, LIVER, BMP #### [facility] [address] [place] [address] Dr. Sugey Dominguez CO2 [Moles/Vol] 30.8 mmol/L Normal 21.0-32.0 [facility] Comment on above: Performed By: #### L IPID, FT3, TSH, LIVER, BMP #### [facility] [address] [place] [address] [address] Sugey Dominguez Creatinine [Mass/Vol] 1.74 mg/dL Critically high 0.55-1.[address] [facility] Comment on above: Performed By: #### L IPID, FT3, TSH, LIVER, BMP #### [facility] [address] [place] [address] Dr. Sugey Dominguez EGFR-AF PRYDEINIG 35 mL/min/1.73m2 Critically low >=[address] [facility] Comment on above: Performed By: #### L IPID, FT3, TSH, LIVER, BMP #### [facility] [address] [place] [address] Dr. Sugey Dominguez EGFR-NON AF PRYDEINIG 29 mL/min/1.73m2 Critically low >=[address] [facility] Comment on above: Performed By: #### L IPID, FT3, TSH, LIVER, BMP #### [facility] [address] [address] [address] Sugey Dominguez Glucose [Mass/Vol] 195 mg/dL Critically high 74-106 T [facility] Comment on above: Performed By: #### L IPID, FT3, TSH, LIVER, BMP #### [facility] [address] [place] [address] Dr. Sugey Dominguez Potassium [Moles/Vol] 4.7 mmol/L Normal 3.5-5.[address] [facility] Comment on above: Performed By: #### L IPID, FT3, TSH, LIVER, BMP #### [facility] [address] [place] [address] Dr. Sugey Dominguez Sodium [Moles/Vol] 135 mmol/L Critically low 136-145 Th [facility] Comment on above: Performed By: #### L IPID, FT3, TSH, LIVER, BMP #### [facility] [address] [place] [address] Dr. Sugey Dominguez Urea nitrogen [Mass/Vol] 47.0 mg/dL Critically high 7.0-18.[address] [facility] Comment on above: Performed By: #### L IPID, FT3, TSH, LIVER, BMP #### [facility] [address] [address] [address] Sugey Dominguez Urea nitrogen/Creatinine [Mass ratio] 27.0 mg/mg Normal [facility] Comment on above: Performed By: #### L IPID, FT3, TSH, LIVER, BMP #### [facility] [address] [address] [address] Sugey Dominguez TSHon 05-01-2022 TSH 4.093 uIU/mL Critically high 0.358-3.740 [facility] Comment on above: Performed By: #### L IPID, FT3, TSH, LIVER, BMP #### [facility] [address] [address] [address] Sugey Dominguez GLYCOHEMOGLOBIN A1Con 2021 ADA RECOMMENDATION SEE BELOW Normal [facility] Comment on above: Result Comment: ADA RECOMMENDED LIMIT 4.0 - 6.0 ADA THERAPEUTIC TARGET < 7.0 ACTION SUGGESTED > 7.0 Performed By: #### A 1C ####[facility] [address] [place] [id number]. Sugey Dominguez Glucose [Mass/Vol] 183 mg/dL Normal [facility] Comment on above: Performed By: #### A 1C ####[facility] [address] [place], [place] [address]OqDarci Dominguez HbA1c (Bld) [Mass fraction] 8.0 % Critically high 4.5-6.[address] [facility] Comment on above: Performed By: #### A 1C ####[facility] [address] [place], [place] [address]KdDr. Sugey Dominguez BASIC METABOLIC PANELon 03-08 Calcium mass conc 9.2 mg/dL Normal 8.6-10.3 [facility] Comment on above: Order Comment: No: D o not add to previous draw Performed By: #### 3 0320 #### [facility] [address] [place] [address], [facility] Chloride molar conc 96 mmol/L Low 98-107 [facility] Comment on above: Order Comment: No: D o not add to previous draw Performed By: #### 3 5200 #### [facility] [address] [place] [address], [facility] CO2 molar conc 27 mmol/L Normal 21-31 [facility] Comment on above: Order Comment: No: D o not add to previous draw Performed By: #### 3 5200 #### [facility] [address] [place] [address], [facility] Creatinine mass conc 0.70 mg/dL Normal 0.60-1.[address] [facility] Comment on above: Order Comment: No: D o not add to previous draw Performed By: #### 3 5200 #### [facility] [address] [place] [address], [facility] GFR/1.73 sq M predicted among blacks MDRD vol rate/area (S/P/Bld) mL/min/{1.73_m2} Normal >60 [facility] Comment on above: Order Comment: No: D o not add to previous draw Result Comment: Calc ulation may not be valid for patients over 70 years Performed By: #### 3 5200 #### [facility] [address] [place] [address], [facility] GFR/1.73 sq M predicted among non-blacks MDRD vol rate/area (S/P/Bld) mL/min/{1.73_m2} Normal >60 [facility] Comment on above: Order Comment: No: D o not add to previous draw Result Comment: Calc ulation may not be valid for patients over 70 years Performed By: #### 3 5200 #### [facility] [address] [place], [place] [address], [facility] Glucose mass conc 210 mg/dL High 70-100 The [facility] Comment on above: Order Comment: No: D o not add to previous draw Performed By: #### 3 5200 #### [facility] [address] [place] [address], [facility] Potassium molar conc 4.0 mmol/L Normal 3.5-5.[address] [facility] Comment on above: Order Comment: No: D o not add to previous draw Performed By: #### 3 5200 #### [facility] [address] [place] [address], [facility] Sodium molar conc 133 mmol/L Low 136-145 The [facility] Comment on above: Order Comment: No: D o not add to previous draw Performed By: #### 3 5200 #### [facility] [address] [place] [address], [facility] Urea nitrogen mass conc 20 mg/dL Normal 7-[address] [facility] Comment on above: Order Comment: No: D o not add to previous draw Performed By: #### 3 5200 #### [facility] [address] CBC W/DIFFon 03-24-2018 ABS BASOPHILS 0.1 10*3/uL Normal 0.0-0.2 The [facility] Comment on above: Order Comment: No: D o not add to previous draw Performed By: #### 3 5200 #### [facility] [address] ABS IMM GRANS 0.1 10*3/uL Normal 0.0-0.2 The [facility] Comment on above: Order Comment: No: D o not add to previous draw Performed By: #### 3 5200 #### [facility] [address] [place] [address], [facility] ABS NEUTROPHILS 4.7 10*3/uL Normal 1.6-7.6 The [facility] Comment on above: Order Comment: No: D o not add to previous draw Performed By: #### 3 5200 #### [facility] [address] Basophils #/vol (Bld) 1.1 % High 0.0-1.[address] [facility] Comment on above: Order Comment: No: D o not add to previous draw Performed By: #### 3 5200 #### [facility] [address] [place] [id number], [facility] Eosinophils #/vol (Bld) 0.3 10*3/uL Normal 0.0-0.[address] [facility] Comment on above: Order Comment: No: D o not add to previous draw Performed By: #### 3 5200 #### [facility] [address] [place] [address], [facility] Eosinophils/100 WBC (Bld) 3.3 % Normal 0.0-6.[address] [facility] Comment on above: Order Comment: No: D o not add to previous draw Performed By: #### 3 5200 #### [facility] [address] Erythrocyte distribution width Ratio (RBC) 16.2 % High 11.5-15.[address] [facility] Comment on above: Order Comment: No: D o not add to previous draw Performed By: #### 3 5200 #### [facility] [address] [place] [address], [facility] Hematocrit Volume Fraction (Bld) 42.5 % Normal 36.0-45.[address] [facility] Comment on above: Order Comment: No: D o not add to previous draw Performed By: #### 3 5200 #### [facility] [address] [place] [id number], [facility] Hemoglobin mass conc (Bld) 13.7 g/dL Normal 12.0-15.[address] [facility] Comment on above: Order Comment: No: D o not add to previous draw Performed By: #### 3 5200 #### [facility] [address] [place] [id number], [place] IMMATURE GRANS 0.8 % Normal 0.0-1.0 [facility] Comment on above: Order Comment: No: D o not add to previous draw Performed By: #### 3 5200 #### [facility] [address] [place] [address], [facility] Lymphocytes #/vol (Bld) 1.7 10*3/uL Normal 1.2-4.[address] [facility] Comment on above: Order Comment: No: D o not add to previous draw Performed By: #### 3 5200 #### [facility] [address] [place] [address], [facility] Lymphocytes/100 WBC (Bld) 22.1 % Normal 20.0-45.[address] [facility] Comment on above: Order Comment: No: D o not add to previous draw Performed By: #### 3 5200 #### [facility] [address] [place] [address], [facility] MCH Entitic mass (RBC) 30.0 pg Normal 27.0-33.[address] [facility] Comment on above: Order Comment: No: D o not add to previous draw Performed By: #### 3 5200 #### [facility] [address] [facility] [address], [facility] MCHC mass conc (RBC) 32.2 g/dL Normal 32.0-35.[address] [facility] Comment on above: Order Comment: No: D o not add to previous draw Performed By: #### 3 5200 #### [facility] [address] [facility]. [place] [id number], [facility] MCV Entitic volume (RBC) 93.2 fL Normal 82.0-98.[address] [facility] Comment on above: Order Comment: No: D o not add to previous draw Performed By: #### 3 5200 #### [facility] [address] [place] [address], [facility] Monocytes #/vol (Bld) 0.7 10*3/uL Normal 0.1-1.[address] [facility] Comment on above: Order Comment: No: D o not add to previous draw Performed By: #### 3 5200 #### [facility] [address] [place] [address], [facility] MONOS 9.8 % Normal 5.0-12.[address] [facility] Comment on above: Order Comment: No: D o not add to previous draw Performed By: #### 3 5200 #### [facility] [address] [place] [address], [facility] Neutrophils/100 WBC (Bld) 62.9 % Normal 40.0-72.[address] [facility] Comment on above: Order Comment: No: D o not add to previous draw Performed By: #### 3 5200 #### [facility] [address] [place] [address], [facility] Nucleated RBC/100 WBC Ratio (Bld) 0 % Normal 0-[address] [facility] Comment on above: Order Comment: No: D o not add to previous draw Performed By: #### 3 5200 #### [facility] [address] [facility] [address], [facility] PLAT CNT 188 10*3/uL Normal 150-400 The [facility] Comment on above: Order Comment: No: D o not add to previous draw Performed By: #### 3 5200 #### [facility] [address] [place] [address], [facility] RBC #/vol (Bld) 4.56 10*6/uL Normal 3.80-5.00 The [facility] Comment on above: Order Comment: No: D o not add to previous draw Performed By: #### 3 5200 #### [facility] [address] [place] [address], [facility] WBC #/vol (Bld) 7.48 10*3/uL Normal 4.00-10.60 The [facility] Comment on above: Order Comment: No: D o not add to previous draw Performed By: #### 3 5200 #### [facility] [address] [place] [address], [facility] POC GLUCOSE LABon 03-24-2018 Glucose mass conc 241 mg/dL High 70-100 The [facility] Comment on above: Performed By: #### 3 5200 #### [facility] [address] [place] [address], [facility] Glucose mass conc 189 mg/dL High 70-100 The [facility] Comment on above: Performed By: #### 3 5200 #### [facility] [address] [place] [address], [facility] BASIC METABOLIC PANELon 03-08 Calcium mass conc 9.1 mg/dL Normal 8.6-10.3 The [facility] Comment on above: Order Comment: No: D o not add to previous draw Performed By: #### 3 5200 #### [facility] [address] [place] [address], [facility] Chloride molar conc 95 mmol/L Low 98-107 The [facility] Comment on above: Order Comment: No: D o not add to previous draw Performed By: #### 3 5200 #### [facility] [address] [place] [address], [place] CO2 molar conc 32 mmol/L High 21-31 The [facility] Comment on above: Order Comment: No: D o not add to previous draw Performed By: #### 3 5200 #### [facility] [address] [place] [address], [place] Creatinine mass conc 0.71 mg/dL Normal 0.60-1.[address] [facility] Comment on above: Order Comment: No: D o not add to previous draw Performed By: #### 3 5200 #### [facility] [address] [place] [address], [place] GFR/1.73 sq M predicted among blacks MDRD vol rate/area (S/P/Bld) mL/min/{1.73_m2} Normal >60 The [facility] Comment on above: Order Comment: No: D o not add to previous draw Result Comment: Calc ulation may not be valid for patients over 70 years Performed By: #### 3 5200 #### [facility] [address] [place] [address], [facility] GFR/1.73 sq M predicted among non-blacks MDRD vol rate/area (S/P/Bld) mL/min/{1.73_m2} Normal >60 The [facility] Comment on above: Order Comment: No: D o not add to previous draw Result Comment: Calc ulation may not be valid for patients over 70 years Performed By: #### 3 5200 #### [facility] [address] [place] [address], [facility] Glucose mass conc 189 mg/dL High 70-100 The [facility] Comment on above: Order Comment: No: D o not add to previous draw Performed By: #### 3 5200 #### [facility] [address] [place] [address], [facility] Potassium molar conc 3.7 mmol/L Normal 3.5-5.1 [facility] Comment on above: Order Comment: No: D o not add to previous draw Performed By: #### 3 5200 #### [facility] [address] [place] [address], [place] Sodium molar conc 134 mmol/L Low 136-145 The [facility] Comment on above: Order Comment: No: D o not add to previous draw Performed By: #### 3 5200 #### [facility] [address] [place] [address], [place] Urea nitrogen mass conc 19 mg/dL Normal 7-[address] [facility] Comment on above: Order Comment: No: D o not add to previous draw Performed By: #### 3 5200 #### [facility] [address] [place] [address], [facility] CBC COMPLETE BLOOD COUNTon 0 - Erythrocyte distribution width Ratio (RBC) 16.2 % High 11.5-15.[address] [facility] Comment on above: Order Comment: No: D o not add to previous draw Performed By: #### 3 5200 #### [facility] [address] [place] [address], [facility] Hematocrit Volume Fraction (Bld) 42.5 % Normal 36.0-45.[address] [facility] Comment on above: Order Comment: No: D o not add to previous draw Performed By: #### 3 5200 #### [facility] [address] [place] [address], [facility] Hemoglobin mass conc (Bld) 13.6 g/dL Normal 12.0-15.[address] [facility] Comment on above: Order Comment: No: D o not add to previous draw Performed By: #### 3 5200 #### [facility] [address] [place] [address], [facility] MCH Entitic mass (RBC) 29.9 pg Normal 27.0-33.[address] [facility] Comment on above: Order Comment: No: D o not add to previous draw Performed By: #### 3 5200 #### [facility] [address] [place] [address], [facility] MCHC mass conc (RBC) 32.0 g/dL Normal 32.0-35.[address] [facility] Comment on above: Order Comment: No: D o not add to previous draw Performed By: #### 3 5200 #### [facility] [address] [place] [address], [facility] MCV Entitic volume (RBC) 93.4 fL Normal 82.0-98.[address] [facility] Comment on above: Order Comment: No: D o not add to previous draw Performed By: #### 3 5200 #### [facility] [address] [place] [address], [facility] Nucleated RBC/100 WBC Ratio (Bld) 0 % Normal 0-[address] [facility] Comment on above: Order Comment: No: D o not add to previous draw Performed By: #### 3 5200 #### [facility] [address] [place] [address], [facility] PLAT CNT 198 10*3/uL Normal 150-400 The [facility] Comment on above: Order Comment: No: D o not add to previous draw Performed By: #### 3 5200 #### [facility] [address] [place] [address], [facility] RBC #/vol (Bld) 4.55 10*6/uL Normal 3.80-5.00 The [facility] Comment on above: Order Comment: No: D o not add to previous draw Performed By: #### 3 5200 #### [facility] [address] [place] [address], [facility] WBC #/vol (Bld) 7.49 10*3/uL Normal 4.00-10.60 The [facility] Comment on above: Order Comment: No: D o not add to previous draw Performed By: #### 3 5200 #### [facility] [address] POC GLUCOSE LABon 03-23-2018 Glucose mass conc 178 mg/dL High 70-100 The [facility] Comment on above: Performed By: #### 3 5200 #### [facility] [address] [place] [address], [facility] Glucose mass conc 163 mg/dL High 70-100 The [facility] Comment on above: Performed By: #### 3 5200 #### [facility] [address] [place] [address], [facility] Glucose mass conc 194 mg/dL High 70-100 The [facility] Comment on above: Performed By: #### 3 5200 #### [facility] [address] [place] [address], [facility] Glucose mass conc 164 mg/dL High 70-100 The [facility] Comment on above: Performed By: #### 3 5200 #### [facility] [address] [place] [address], [facility] BASIC METABOLIC PANELon - Calcium mass conc 9.0 mg/dL Normal 8.6-10.3 The [facility] Comment on above: Order Comment: No: D o not add to previous draw Performed By: #### 3 5200 #### [facility] [address] [place] [address], [facility] Chloride molar conc 95 mmol/L Low 98-107 The [facility] Comment on above: Order Comment: No: D o not add to previous draw Performed By: #### 3 5200 #### [facility] [address] [place] [address], [place] CO2 molar conc 36 mmol/L High 21-31 The [facility] Comment on above: Order Comment: No: D o not add to previous draw Performed By: #### 3 5200 #### [facility] [address] [place] [address], [facility] Creatinine mass conc 0.61 mg/dL Normal 0.60-1.[address] [facility] Comment on above: Order Comment: No: D o not add to previous draw Performed By: #### 3 5200 #### [facility] [address] [place] [address], [facility] GFR/1.73 sq M predicted among blacks MDRD vol rate/area (S/P/Bld) mL/min/{1.73_m2} Normal >60 The [facility] Comment on above: Order Comment: No: D o not add to previous draw Result Comment: Calc ulation may not be valid for patients over 70 years Performed By: #### 3 5200 #### [facility] [address] [place] [address], [facility] GFR/1.73 sq M predicted among non-blacks MDRD vol rate/area (S/P/Bld) mL/min/{1.73_m2} Normal >60 The [facility] Comment on above: Order Comment: No: D o not add to previous draw Result Comment: Calc ulation may not be valid for patients over 70 years Performed By: #### 3 5200 #### [facility] [address] [place] [address], [facility] Glucose mass conc 152 mg/dL High 70-100 The [facility] Comment on above: Order Comment: No: D o not add to previous draw Performed By: #### 3 5200 #### [facility] [address] [place] [address], [facility] Potassium molar conc 3.5 mmol/L Normal 3.5-5.[address] [facility] Comment on above: Order Comment: No: D o not add to previous draw Performed By: #### 3 5200 #### [facility] [address] [place] [address], [place] Sodium molar conc 137 mmol/L Normal 136-145 The [facility] Comment on above: Order Comment: No: D o not add to previous draw Performed By: #### 3 5200 #### [facility] [address] [place] [address], [facility] Urea nitrogen mass conc 17 mg/dL Normal 7-[address] [facility] Comment on above: Order Comment: No: D o not add to previous draw Performed By: #### 3 5200 #### [facility] [address] [place] [address], [facility] CBC COMPLETE BLOOD COUNTon 0 2- Erythrocyte distribution width Ratio (RBC) 16.2 % High 11.5-15.[address] [facility] Comment on above: Order Comment: No: D o not add to previous draw Performed By: #### 3 5200 #### [facility] [address] [place] [address], [facility] Hematocrit Volume Fraction (Bld) 42.6 % Normal 36.0-45.[address] [facility] Comment on above: Order Comment: No: D o not add to previous draw Performed By: #### 3 5200 #### [facility] [address] [place] [address], [facility] Hemoglobin mass conc (Bld) 13.4 g/dL Normal 12.0-15.[address] [facility] Comment on above: Order Comment: No: D o not add to previous draw Performed By: #### 3 5200 #### [facility] [address] [place] [address], [facility] MCH Entitic mass (RBC) 29.4 pg Normal 27.0-33.[address] [facility] Comment on above: Order Comment: No: D o not add to previous draw Performed By: #### 3 5200 #### [facility] [address] [place] [address], [facility] MCHC mass conc (RBC) 31.5 g/dL Low 32.0-35.[address] [facility] Comment on above: Order Comment: No: D o not add to previous draw Performed By: #### 3 5200 #### [facility] [address] [place] [address], [facility] MCV Entitic volume (RBC) 93.4 fL Normal 82.0-98.[address] [facility] Comment on above: Order Comment: No: D o not add to previous draw Performed By: #### 3 5200 #### [facility] [address] [place] [address], [facility] Nucleated RBC/100 WBC Ratio (Bld) 0 % Normal 0-[address] [facility] Comment on above: Order Comment: No: D o not add to previous draw Performed By: #### 3 5200 #### [facility] [address] [place] [address], [facility] PLAT CNT 197 10*3/uL Normal 150-400 The [facility] Comment on above: Order Comment: No: D o not add to previous draw Performed By: #### 3 5200 #### [facility] [address] [place] [address], [facility] RBC #/vol (Bld) 4.56 10*6/uL Normal 3.80-5.00 The [facility] Comment on above: Order Comment: No: D o not add to previous draw Performed By: #### 3 5200 #### [facility] [address] [place] [address], [facility] WBC #/vol (Bld) 7.53 10*3/uL Normal 4.00-10.60 The [facility] Comment on above: Order Comment: No: D o not add to previous draw Performed By: #### 3 5200 #### [facility] [address] [place] [address], [facility] POC GLUCOSE LABon 03-22-2018 Glucose mass conc 187 mg/dL High 70-100 The [facility] Comment on above: Performed By: #### 3 5200 #### [facility] [address] [place] [address], [place] Glucose mass conc 161 mg/dL High 70-100 The [facility] Comment on above: Performed By: #### 3 5200 #### [facility] [address] [place] [address], [place] Glucose mass conc 226 mg/dL High 70-100 The [facility] Comment on above: Performed By: #### 3 5200 #### [facility] [address] [place] [address], [place] Glucose mass conc 175 mg/dL High 70-100 The [facility] Comment on above: Performed By: #### 3 5200 #### [facility] [address] [place] [address], [place] Glucose mass conc 148 mg/dL High 70-100 The [facility] Comment on above: Performed By: #### 3 5200 #### [facility] [address] [place] [address], [place] Glucose mass conc 191 mg/dL High 70-100 The [facility] Comment on above: Performed By: #### 5 6101, [id number] #### [facility] [address] [place] [address], [place] BASIC METABOLIC PANELon 03-08 Calcium mass conc 9.1 mg/dL Normal 8.6-10.3 The [facility] Comment on above: Order Comment: No: D o not add to previous draw Performed By: #### 5 610, 61554 #### [facility] [address] [place] [address], [place] Chloride molar conc 95 mmol/L Low 98-107 [facility] Comment on above: Order Comment: No: D o not add to previous draw Performed By: #### 5 6101, [id number] #### [facility] [address] [place] [address], [place] CO2 molar conc 36 mmol/L High 21-31 The [facility] Comment on above: Order Comment: No: D o not add to previous draw Performed By: #### 5 6101, 64925 #### [facility] [address] [place] [address], [place] Creatinine mass conc 0.68 mg/dL Normal 0.60-1.[address] [facility] Comment on above: Order Comment: No: D o not add to previous draw Performed By: #### 5 6101, 68914 #### [facility] [address] [place] [address], [place] GFR/1.73 sq M predicted among blacks MDRD vol rate/area (S/P/Bld) mL/min/{1.73_m2} Normal >60 The [facility] Comment on above: Order Comment: No: D o not add to previous draw Result Comment: Calc ulation may not be valid for patients over 70 years Performed By: #### 5 6101, 74601 #### [facility] [address] [place] [address], [place] GFR/1.73 sq M predicted among non-blacks MDRD vol rate/area (S/P/Bld) mL/min/{1.73_m2} Normal >60 The [facility] Comment on above: Order Comment: No: D o not add to previous draw Result Comment: Calc ulation may not be valid for patients over 70 years Performed By: #### 5 6101, 26384 #### [facility] [address] [place] [address], [place] Glucose mass conc 147 mg/dL High 70-100 The [facility] Comment on above: Order Comment: No: D o not add to previous draw Performed By: #### 5 6101, 15474 #### [facility] [address] [place] [address], [place] Potassium molar conc 3.6 mmol/L Normal 3.5-5.[address] [facility] Comment on above: Order Comment: No: D o not add to previous draw Performed By: #### 5 6101, [id number] #### [facility] [facility] [address] [place] [address], [place] Sodium molar conc 139 mmol/L Normal 136-145 [facility] Comment on above: Order Comment: No: D o not add to previous draw Performed By: #### 5 610, 99122 #### [facility] [address] [place] [address], [place] Urea nitrogen mass conc 14 mg/dL Normal 7-[address] [facility] Comment on above: Order Comment: No: D o not add to previous draw Performed By: #### 5 610, 23373 #### [facility] [address] [place] [address], [facility] CBC COMPLETE BLOOD COUNTon 0 - Erythrocyte distribution width Ratio (RBC) 16.2 % High 11.5-15.0 [facility] Comment on above: Order Comment: No: D o not add to previous draw Performed By: #### 5 610, 59331 #### [facility] [address] [place] [address], [facility] Hematocrit Volume Fraction (Bld) 42.0 % Normal 36.0-45.[address] [facility] Comment on above: Order Comment: No: D o not add to previous draw Performed By: #### 5 610, 23937 #### [facility] [address] [place] [address], [facility] Hemoglobin mass conc (Bld) 13.5 g/dL Normal 12.0-15.[address] [facility] Comment on above: Order Comment: No: D o not add to previous draw Performed By: #### 5 6100, 33814 #### [facility] [address] [place] [address], [facility] MCH Entitic mass (RBC) 30.0 pg Normal 27.0-33.[address] [facility] Comment on above: Order Comment: No: D o not add to previous draw Performed By: #### 5 610, 36236 #### [facility] [address] [place] [address], [facility] MCHC mass conc (RBC) 32.1 g/dL Normal 32.0-35.[address] [facility] Comment on above: Order Comment: No: D o not add to previous draw Performed By: #### 5 610, 87801 #### [facility] [address] [place] [address], [place] MCV Entitic volume (RBC) 93.3 fL Normal 82.0-98.[address] [facility] Comment on above: Order Comment: No: D o not add to previous draw Performed By: #### 5 610, 20415 #### [facility] [address] [place] [address], [facility] Nucleated RBC/100 WBC Ratio (Bld) 0 % Normal 0-[address] [facility] Comment on above: Order Comment: No: D o not add to previous draw Performed By: #### 5 6100, 30671 #### [facility] [address] [place] [address], [facility] PLAT CNT 196 10*3/uL Normal 150-400 The [facility] Comment on above: Order Comment: No: D o not add to previous draw Performed By: #### 5 6100, 87263 #### [facility] [address] [place] [address], [facility] RBC #/vol (Bld) 4.50 10*6/uL Normal 3.80-5.00 [facility] Comment on above: Order Comment: No: D o not add to previous draw Performed By: #### 5 6100, 63655 #### [facility] [address] [place] [address], [facility] WBC #/vol (Bld) 7.89 10*3/uL Normal 4.00-10.60 [facility] Comment on above: Order Comment: No: D o not add to previous draw Performed By: #### 5 610, 13228 #### [facility] [address] [place] [address], [facility] POC GLUCOSE LABon 03-21-2018 Glucose mass conc 174 mg/dL High 70-100 [facility] Comment on above: Performed By: #### 5 610, 76118 #### [facility] [address] [place] [address], [facility] Glucose mass conc 129 mg/dL High 70-100 [facility] Comment on above: Performed By: #### 5 610, 68137 #### [facility] [address] [place] [address], [place] Glucose mass conc 280 mg/dL High 70-100 [facility] Comment on above: Performed By: #### 5 610, 20562 #### [facility] [address] [place] [address], [place] BASIC METABOLIC PANELon 03-08 Calcium mass conc 9.2 mg/dL Normal 8.6-10.3 [facility] Comment on above: Order Comment: No: D o not add to previous draw Performed By: #### 5 610, 38880 #### [facility] [address] [place] [address], [place] Chloride molar conc 96 mmol/L Low 98-107 [facility] Comment on above: Order Comment: No: D o not add to previous draw Performed By: #### 5 610, 29166 #### [facility] [address] [place] [address], [facility] CO2 molar conc 33 mmol/L High 21-31 The [facility] Comment on above: Order Comment: No: D o not add to previous draw Performed By: #### 5 610, 58407 #### [facility] [address] [place] [address], [place] Creatinine mass conc 0.69 mg/dL Normal 0.60-1.[address] [facility] Comment on above: Order Comment: No: D o not add to previous draw Performed By: #### 5 610, 77022 #### [facility] [address] [place] [address], [place] GFR/1.73 sq M predicted among blacks MDRD vol rate/area (S/P/Bld) mL/min/{1.73_m2} Normal >60 The [facility] Comment on above: Order Comment: No: D o not add to previous draw Result Comment: Calc ulation may not be valid for patients over 70 years Performed By: #### 5 6101, 44149 #### [facility] [address] [place] [address], [facility] GFR/1.73 sq M predicted among non-blacks MDRD vol rate/area (S/P/Bld) mL/min/{1.73_m2} Normal >60 [facility] Comment on above: Order Comment: No: D o not add to previous draw Result Comment: Calc ulation may not be valid for patients over 70 years Performed By: #### 5 6101, 90396 #### [facility] [address] [place] [address], [facility] Glucose mass conc 134 mg/dL High 70-100 [facility] Comment on above: Order Comment: No: D o not add to previous draw Performed By: #### 5 610, 68011 #### [facility] [address] [place] [address], [place] Potassium molar conc 4.1 mmol/L Normal 3.5-5.[address] [facility] Comment on above: Order Comment: No: D o not add to previous draw Performed By: #### 5 6101, 13459 #### [facility] [address] [place] [address], [place] Sodium molar conc 137 mmol/L Normal 136-145 [facility] Comment on above: Order Comment: No: D o not add to previous draw Performed By: #### 5 6101, 49695 #### [facility] [address] [place] [address], [place] Urea nitrogen mass conc 13 mg/dL Normal 7-[address] [facility] Comment on above: Order Comment: No: D o not add to previous draw Performed By: #### 5 6101, 02222 #### [facility] [address] [place] [address], [place] MAGNESIUM BLOODon 03-20-2018 Magnesium mass conc 1.9 mg/dL Normal 1.9-2.7 [facility] Comment on above: Order Comment: No: D o not add to previous draw Performed By: #### 5 6101, 04801 #### [facility] [address] [place] [address], [facility] POC GLUCOSE LABon 03-20-2018 Glucose mass conc 109 mg/dL High 70-100 [facility] Comment on above: Performed By: #### 5 610, 68738 #### [facility] [address] [place] [address], [facility] Glucose mass conc 194 mg/dL High 70-100 [facility] Comment on above: Performed By: #### 5 610, 13139 #### [facility] [address] [place] [address], [facility] Glucose mass conc 119 mg/dL High 70-100 [facility] Comment on above: Performed By: #### 5 610, 56773 #### [facility] [address] [place] [address], [facility] Glucose mass conc 203 mg/dL High 70-100 [facility] Comment on above: Performed By: #### 5 6101, 70453 #### [facility] [address] [place] [address], [facility] APTTon 03-19-2018 aPTT Coag time (Bld) 32.1 s Normal 25.0-35.[address] [facility] Comment on above: Order Comment: No: [...] THIS PURPOSE. Performed By: #### 5 6101, 07796 #### [facility] [address] [place] [address], [place] BASIC METABOLIC PANELon 03-08 Calcium mass conc 9.2 mg/dL Normal 8.6-10.3 [facility] Comment on above: Order Comment: No: D o not add to previous draw Performed By: #### 5 6101, 72087 #### [facility] [address] [place] [address], [place] Chloride molar conc 95 mmol/L Low 98-107 [facility] Comment on above: Order Comment: No: D o not add to previous draw Performed By: #### 5 6101, 64276 #### [facility] [address] [place] [address], [place] CO2 molar conc 34 mmol/L High 21-31 The [facility] Comment on above: Order Comment: No: D o not add to previous draw Performed By: #### 5 6101, 08768 #### [facility] [address] [place] [address], [place] Creatinine mass conc 0.55 mg/dL Low 0.60-1.[address] [facility] Comment on above: Order Comment: No: D o not add to previous draw Performed By: #### 5 6101, 78206 #### [facility] [address] [place] [address], [place] GFR/1.73 sq M predicted among blacks MDRD vol rate/area (S/P/Bld) mL/min/{1.73_m2} Normal >60 The [facility] Comment on above: Order Comment: No: D o not add to previous draw Result Comment: Calc ulation may not be valid for patients over 70 years Performed By: #### 5 6101, 89667 #### [facility] [address] [place] [address], [place] GFR/1.73 sq M predicted among non-blacks MDRD vol rate/area (S/P/Bld) mL/min/{1.73_m2} Normal >60 [facility] Comment on above: Order Comment: No: D o not add to previous draw Result Comment: Calc ulation may not be valid for patients over 70 years Performed By: #### 5 6101, 04137 #### [facility] [address] [place] [address], [facility] Glucose mass conc 136 mg/dL High 70-100 [facility] Comment on above: Order Comment: No: D o not add to previous draw Performed By: #### 5 610, 87700 #### [facility] [address] [place] [address], [facility] Potassium molar conc 3.4 mmol/L Low 3.5-5.[address] [facility] Comment on above: Order Comment: No: D o not add to previous draw Performed By: #### 5 6101, 12437 #### [facility] [address] [place] [id number], [facility] Sodium molar conc 137 mmol/L Normal 136-145 [facility] Comment on above: Order Comment: No: D o not add to previous draw Performed By: #### 5 6101, 23958 #### [facility] [address] [place] [address], [facility] Urea nitrogen mass conc 11 mg/dL Normal 7-[address] [facility] Comment on above: Order Comment: No: D o not add to previous draw Performed By: #### 5 6101, 06588 #### [facility] [address] [place] [id number], [facility] CBC W/DIFFon 03-19-2018 ABS BASOPHILS 0.1 10*3/uL Normal 0.0-0.2 The [facility] Comment on above: Order Comment: No: D o not add to previous draw Performed By: #### 5 6101, 92985 #### [facility] [address] ABS IMM GRANS 0.1 10*3/uL Normal 0.0-0.2 [facility] Comment on above: Order Comment: No: D o not add to previous draw Performed By: #### 5 6100, 90566 #### [facility] [address] [place] [address], [facility] ABS NEUTROPHILS 6.1 10*3/uL Normal 1.6-7.6 The [facility] Comment on above: Order Comment: No: D o not add to previous draw Performed By: #### 5 6100, 14647 #### [facility] [address] [place] [address], [facility] Basophils #/vol (Bld) 0.8 % Normal 0.0-1.[address] [facility] Comment on above: Order Comment: No: D o not add to previous draw Performed By: #### 5 6100, 75812 #### [facility] [address] [place] [address], [facility] Eosinophils #/vol (Bld) 0.2 10*3/uL Normal 0.0-0.[address] [facility] Comment on above: Order Comment: No: D o not add to previous draw Performed By: #### 5 6100, 06805 #### [facility] [address] [place] [address], [facility] Eosinophils/100 WBC (Bld) 1.9 % Normal 0.0-6.[address] [facility] Comment on above: Order Comment: No: D o not add to previous draw Performed By: #### 5 6100, 07322 #### [facility] [address] [place] [address], [facility] Erythrocyte distribution width Ratio (RBC) 16.4 % High 11.5-15.[address] [facility] Comment on above: Order Comment: No: D o not add to previous draw Performed By: #### 5 6100, 59499 #### [facility] [address] Hematocrit Volume Fraction (Bld) 43.7 % Normal 36.0-45.[address] [facility] Comment on above: Order Comment: No: D o not add to previous draw Performed By: #### 5 6100, 55114 #### [facility] [address] [place] [address], [facility] Hemoglobin mass conc (Bld) 14.0 g/dL Normal 12.0-15.[address] [facility] Comment on above: Order Comment: No: D o not add to previous draw Performed By: #### 5 6100, 97004 #### [facility] [address] [place] [address], [facility] IMMATURE GRANS 0.7 % Normal 0.0-1.0 The [facility] Comment on above: Order Comment: No: D o not add to previous draw Performed By: #### 5 6100, 74406 #### [facility] [address] [place] [address], [facility] Lymphocytes #/vol (Bld) 1.7 10*3/uL Normal 1.2-4.[address] [facility] Comment on above: Order Comment: No: D o not add to previous draw Performed By: #### 5 6100, 72020 #### [facility] [address] [place] [address], [facility] Lymphocytes/100 WBC (Bld) 19.1 % Low 20.0-45.[address] [facility] Comment on above: Order Comment: No: D o not add to previous draw Performed By: #### 5 6100, 93804 #### [facility] [address] [place] [address], [facility] MCH Entitic mass (RBC) 29.5 pg Normal 27.0-33.[address] [facility] Comment on above: Order Comment: No: D o not add to previous draw Performed By: #### 5 6100, 72344 #### [facility] [address] [place] [address], [facility] MCHC mass conc (RBC) 32.0 g/dL Normal 32.0-35.[address] [facility] Comment on above: Order Comment: No: D o not add to previous draw Performed By: #### 5 610, 06252 #### [facility] [address] [place] [id number], [facility] MCV Entitic volume (RBC) 92.0 fL Normal 82.0-98.[address] [facility] Comment on above: Order Comment: No: D o not add to previous draw Performed By: #### 5 6100, 65325 #### [facility] [address] [place] [address], [facility] Monocytes #/vol (Bld) 0.6 10*3/uL Normal 0.1-1.[address] [facility] Comment on above: Order Comment: No: D o not add to previous draw Performed By: #### 5 6100, 20531 #### [facility] [address] [place] [address], [facility] MONOS 7.0 % Normal 5.0-12.[address] [facility] Comment on above: Order Comment: No: D o not add to previous draw Performed By: #### 5 6100, 78823 #### [facility] [address] [place] [address], [facility] Neutrophils/100 WBC (Bld) 70.5 % Normal 40.0-72.[address] [facility] Comment on above: Order Comment: No: D o not add to previous draw Performed By: #### 5 610, 69668 #### [facility] [address] [place] [id number], [facility] Nucleated RBC/100 WBC Ratio (Bld) 0 % Normal 0-[address] [facility] Comment on above: Order Comment: No: D o not add to previous draw Performed By: #### 5 610, 03958 #### [facility] PLAT CNT 200 10*3/uL Normal 150-400 The [facility] Comment on above: Order Comment: No: D o not add to previous draw Performed By: #### 5 6101, 58089 #### [address] RBC #/vol (Bld) 4.75 10*6/uL Normal 3.80-5.00 [facility] Comment on above: Order Comment: No: D o not add to previous draw Performed By: #### 5 6101, 01041 #### [address] WBC #/vol (Bld) 8.62 10*3/uL Normal 4.00-10.60 [facility] Comment on above: Order Comment: No: D o not add to previous draw Performed By: #### 5 6101, 37511 #### [address] CHEST AND LATERALon 03-19-[address] [facility] Department of Radiology [address] [place] [address] Patient Name: JACQUELYN KAPLAN : 1945 Sex: F Age: Race: White Pt. Location: [id number] Patient Status: I Ordered Date: 03/19/2018 12:15:00 [...] cardiomegaly. Electronically signed by:Shankar Nicolas. Transcribed by: [email or web address], User Resident: Electronically Signed by: SHANKAR NICOLAS @ 03/19/2018 08:[address] [facility] Comment on above: Order Comment: No: D o not add to previous draw COMP METABOLIC PANELon 03-19 Albumin mass conc 3.3 g/dL Low 3.5-5.7 [facility] Comment on above: Order Comment: No: D o not add to previous draw Performed By: #### 5 6101, 35444 #### [facility] [address] [facility] [address], [facility] ALKALINE PHOSPH 58 IU/L Normal 34-104 The [facility] Comment on above: Order Comment: No: D o not add to previous draw Performed By: #### 5 6101, 95528 #### [facility] [address] [facility] [address], [facility] ALT enzyme act/vol 28 U/L Normal 7-52 [facility] Comment on above: Order Comment: No: D o not add to previous draw Performed By: #### 5 6101, 45507 #### [facility] [address] [place] [address], [place] AST enzyme act/vol 22 U/L Normal 13-39 [facility] Comment on above: Order Comment: No: D o not add to previous draw Performed By: #### 5 610, 55445 #### [facility] [address] [place] [address], [place] Bilirubin mass conc 1.9 mg/dL High 0.3-1.0 [facility] Comment on above: Order Comment: No: D o not add to previous draw Performed By: #### 5 610, 19833 #### [facility] [address] [place] [address], [place] Calcium mass conc 9.0 mg/dL Normal 8.6-10.3 [facility] Comment on above: Order Comment: No: D o not add to previous draw Performed By: #### 5 610, 34368 #### [facility] [address] [place] [address], [place] Chloride molar conc 94 mmol/L Low 98-107 [facility] Comment on above: Order Comment: No: D o not add to previous draw Performed By: #### 5 610, 09877 #### [facility] [address] [place] [address], [place] CO2 molar conc 36 mmol/L High 21-31 The [facility] Comment on above: Order Comment: No: D o not add to previous draw Performed By: #### 5 610, 54658 #### [facility] [address] [place] [address], [place] Creatinine mass conc 0.61 mg/dL Normal 0.60-1.[address] [facility] Comment on above: Order Comment: No: D o not add to previous draw Performed By: #### 5 610, 89402 #### [facility] [address] [place] [address], [facility] GFR/1.73 sq M predicted among blacks MDRD vol rate/area (S/P/Bld) mL/min/{1.73_m2} Normal >60 The [facility] Comment on above: Order Comment: No: D o not add to previous draw Result Comment: Calc ulation may not be valid for patients over 70 years Performed By: #### 5 6101, 68474 #### [facility] [address] [place] [address], [place] GFR/1.73 sq M predicted among non-blacks MDRD vol rate/area (S/P/Bld) mL/min/{1.73_m2} Normal >60 The [facility] Comment on above: Order Comment: No: D o not add to previous draw Result Comment: Calc ulation may not be valid for patients over 70 years Performed By: #### 5 6101, 16087 #### [facility] [address] [place] [address], [facility] Glucose mass conc 210 mg/dL High 70-100 The [facility] Comment on above: Order Comment: No: D o not add to previous draw Performed By: #### 5 6101, 18774 #### [facility] [address] [place] [address], [place] Potassium molar conc 3.3 mmol/L Low 3.5-5.[address] [facility] Comment on above: Order Comment: No: D o not add to previous draw Performed By: #### 5 6101, 67985 #### [facility] [address] [place] [address], [place] Protein mass conc 6.3 g/dL Normal 6.0-8.3 [facility] Comment on above: Order Comment: No: D o not add to previous draw Performed By: #### 5 6101, 79040 #### [facility] [address] [place] [address], [place] Sodium molar conc 137 mmol/L Normal 136-145 [facility] Comment on above: Order Comment: No: D o not add to previous draw Performed By: #### 5 6101, 91434 #### [facility] [address] [facility] Urea nitrogen mass conc 11 mg/dL Normal 7-[address] [facility] Comment on above: Order Comment: No: D o not add to previous draw Performed By: #### 5 6101, 50024 #### [facility] [address] History and Physicalon 03-19 History and Physical MR#: [id number] [facility] Pt. 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 She was admitted to [facility] where she was found to be in [...] stenosis during her last hospitalization here at [facility] earlier this month. There was a discussion with Cardiology service about aortic valve replacement, whether to have TAVR versus open heart surgery and that decision has not been made yet. She was supposed to follow up with our Cardiology service next week. Transfer was initiated from [place] for further evaluation from our Cardiology service and also due to concern at [place] whether she needed urgent valve replacement done [...] heart rate 73, respiratory rate 23, blood [id number], pulse ox 99% 2L NC. EYES: Pupils [...] alert and oriented x3. LAB STUDIES: From [facility], March 18, 2018. CBC; WBC 7.4, hemoglobin 12.7, hematocrit 39.2, platelet count 174. BMP: Sodium 142, potassium 3.3, chloride 101, bicarb 34.7, BUN 12, creatinine 0.71, calcium 8.5, glucose 93. The patient had BNP of 16,271 on March 16, 2018, when she initially presented. It appears that cardiac enzymes are negative. Chest x-ray is reported to be showing pulmonary edema from [place], but no images were sent over with [...] by: Jaguar John MD 03/19/2018 05:56 A Jaguar John MD Date Dict: 03/19/2018/12:11 A/Jaguar John MD Date Trans: 03/19/2018 01:05 A/jerri [id number] [facility] MAGNESIUM BLOODon 03-19-2018 Magnesium mass conc 1.8 mg/dL Low 1.9-2.7 [facility] Comment on above: Order Comment: Yes: Add to Previous draw if able Performed By: #### 3 6370, 71906, 13871, 40920 #### [facility] [address] [place] [address], [place] POC GLUCOSE LABon 03-19-2018 Glucose mass conc 260 mg/dL High 70-100 [facility] Comment on above: Performed By: #### 5 3831, 36366 #### [facility] [address] [place] [address], [place] Glucose mass conc 200 mg/dL High 70-100 [facility] Comment on above: Performed By: #### 5 6101, 65883 #### [facility] [address] [place] [address], [facility] Glucose mass conc 130 mg/dL High 70-100 [facility] Comment on above: Performed By: #### 3 5200, 90595, 97524, 00164 #### [facility] [address] [place] [address], [facility] Glucose mass conc 112 mg/dL High 70-100 [facility] Comment on above: Performed By: #### 3 5200, 51093, 81108, 18683 #### [facility] [address] [facility]. [address] PROTHROMBIN TIMEon 9 INR Coag RelTime (PPP) 1.19 {INR} High 0.91-1.[address] [facility] Comment on above: Order Comment: No: [...] CHEST 1995;[id number]. Performed By: #### 5 6101, 20879 #### [facility] [address] Prothrombin time (PT) Coag time (PPP) 15.1 s High 12.3-14.[address] [facility] Comment on above: Order Comment: No: D o not add to previous draw Result Comment: ALL RESULTS MUST BE INTERPRETED WITH RESPECT TO BLOOD DRAWING ARTIFACT OR DILUTION ERROR OF ANTICOAGULANT AT THE TIME OF SAMPLING. Performed By: #### 5 6101, 19725 #### [facility] [address] APTTon 03-13-2018 aPTT Coag time (Bld) 52.4 s High 25.0-35.[address] [facility] Comment on above: Order Comment: Yes: [...] OF HEPARIN. Performed By: #### 3 5200, 86857, 48190, 95272 #### [facility] [address] aPTT Coag time (Bld) 56.9 s High 25.0-35.[address] [facility] Comment on above: Order Comment: Yes: [...] OF HEPARIN. Performed By: #### 3 5200, 50541, 22091, 21482 #### [facility] [address] [place] [address], [facility] aPTT Coag time (Bld) 53.6 s High 25.0-35.[address] [facility] Comment on above: Order Comment: Yes: [...] OF HEPARIN. Performed By: #### 3 5200, 47670, 60311, 00966 #### [facility] [address] [place] [address], [facility] POC GLUCOSE LABon 03-13-2018 Glucose mass conc 140 mg/dL High 70-100 [facility] Comment on above: Performed By: #### 3 5200, 91512, 47134, 81868 #### [facility] [address] [place] [address], [facility] Glucose mass conc 189 mg/dL High 70-100 [facility] Comment on above: Performed By: #### 3 5200, 60483, 60957, 11861 #### [facility] [address] [place] [address], [facility] Glucose mass conc 156 mg/dL High 70-100 [facility] Comment on above: Performed By: #### 3 5200, 26086, 61787, 51540 #### [facility] [address] [place] [address], [facility] UFH HEPARIN ASSAYon 03-13-19 19 UNFRACTIONATED HEPARIN 0.14 IU/mL Critically low 0.30-0.[address] [facility] Comment on above: Order Comment: Yes: Add to Previous draw if able Result Comment: Marina roxaban and Apixaban will interfere with the anti Xa assay used to monitor UFH and LMWH. Results called. Accurately read back by PEGGY ISAACS Performed By: #### 3 5200, 80633, 52815, 62283 #### [facility] [address] [place] [address], [facility] UNFRACTIONATED HEPARIN 0.18 IU/mL Low 0.30-0.[address] [facility] Comment on above: Order Comment: Yes: Add to Previous draw if able Result Comment: Marina roxaban and Apixaban will interfere with the anti Xa assay used to monitor UFH and LMWH. Performed By: #### 3 5200, 10525, 59964, 39416 #### [facility] [address] [place] [address], [facility] UNFRACTIONATED HEPARIN 0.18 IU/mL Low 0.30-0.[address] [facility] Comment on above: Result Comment: Marina roxaban and Apixaban will interfere with the anti Xa assay used to monitor UFH and LMWH. ADDED PER PROTOCOL. Performed By: #### 3 5200, 52618, 83213, 96722 #### [facility] [address] [place] [address], [facility] APTTon 03-12-2018 aPTT Coag time (Bld) 49.2 s High 25.0-35.[address] [facility] Comment on above: Order Comment: Yes: [...] THIS PURPOSE. Performed By: #### 3 5200, 94444, 05313, 46428 #### [facility] [address] [place] [address], [facility] aPTT Coag time (Bld) 59.2 s High 25.0-35.[address] [facility] Comment on above: Order Comment: Yes: [...] OF HEPARIN. Performed By: #### 3 5200, 52007, 32742, 23227 #### [facility] [address] [place] [address], [facility] aPTT Coag time (Bld) 43.7 s High 25.0-35.[address] [facility] Comment on above: Order Comment: Yes: [...] THIS PURPOSE. Performed By: #### 3 5200, 20281, 23714, 71169 #### [facility] [address] BASIC METABOLIC PANELon 02-0 Calcium mass conc 8.9 mg/dL Normal 8.6-10.3 [facility] Comment on above: Order Comment: Yes: Add to Previous draw if able Performed By: #### 3 5200, 15817, 91852, 82385 #### [facility] [address] [place] [address], [facility] Chloride molar conc 100 mmol/L Normal 98-107 [facility] Comment on above: Order Comment: Yes: Add to Previous draw if able Performed By: #### 3 5200, 91886, 87552, 68278 #### [facility] [address] [place] [address], [facility] CO2 molar conc 28 mmol/L Normal 21-31 [facility] Comment on above: Order Comment: Yes: Add to Previous draw if able Performed By: #### 3 5200, 38895, 28645, 06925 #### [facility] [address] [place] [address], [place] Creatinine mass conc 0.50 mg/dL Low 0.60-1.[address] [facility] Comment on above: Order Comment: Yes: Add to Previous draw if able Performed By: #### 3 5200, 78924, 79332, 30441 #### [facility] [address] [place] [address], [place] GFR/1.73 sq M predicted among blacks MDRD vol rate/area (S/P/Bld) mL/min/{1.73_m2} Normal >60 [facility] Comment on above: Order Comment: Yes: Add to Previous draw if able Result Comment: Calc ulation may not be valid for patients over 70 years Performed By: #### 3 5200, 84509, 06216, 76340 #### [facility] [address] [place] [address], [place] GFR/1.73 sq M predicted among non-blacks MDRD vol rate/area (S/P/Bld) mL/min/{1.73_m2} Normal >60 [facility] Comment on above: Order Comment: Yes: Add to Previous draw if able Result Comment: Calc ulation may not be valid for patients over 70 years Performed By: #### 3 5200, 00897, 11207, 52230 #### [facility] [address] [place] [address], [place] Glucose mass conc 132 mg/dL High 70-100 [facility] Comment on above: Order Comment: Yes: Add to Previous draw if able Performed By: #### 3 5200, 33889, 81211, 41257 #### [facility] [address] [place] [address], [place] Potassium molar conc 3.6 mmol/L Normal 3.5-5.[address] [facility] Comment on above: Order Comment: Yes: Add to Previous draw if able Performed By: #### 3 5200, 09129, 16370, 29078 #### [facility] [address] [place] [address], [facility] Sodium molar conc 137 mmol/L Normal 136-145 [facility] Comment on above: Order Comment: Yes: Add to Previous draw if able Performed By: #### 3 5200, 31353, 36366, 55009 #### [facility] [address] [place] [address], [facility] Urea nitrogen mass conc 10 mg/dL Normal 7-[address] [facility] Comment on above: Order Comment: Yes: Add to Previous draw if able Performed By: #### 3 5200, 80434, 85658, 18773 #### [facility] [address] [place] [address], [facility] CBC COMPLETE BLOOD COUNTon 0 - Erythrocyte distribution width Ratio (RBC) 16.1 % High 11.5-15.0 [facility] Comment on above: Order Comment: Yes: Add to Previous draw if able Performed By: #### 3 5200, 10595, 51752, 34737 #### [facility] [address] [place] [address], [facility] Hematocrit Volume Fraction (Bld) 39.3 % Normal 36.0-45.[address] [facility] Comment on above: Order Comment: Yes: Add to Previous draw if able Performed By: #### 3 5200, 27183, 60080, 23598 #### [facility] [address] [place] [address], [place] Hemoglobin mass conc (Bld) 12.4 g/dL Normal 12.0-15.[address] [facility] Comment on above: Order Comment: Yes: Add to Previous draw if able Performed By: #### 3 5200, 70526, 95785, 53125 #### [facility] [address] [place] [address], [place] MCH Entitic mass (RBC) 29.7 pg Normal 27.0-33.[address] [facility] Comment on above: Order Comment: Yes: Add to Previous draw if able Performed By: #### 3 5200, 77710, 81294, 54506 #### [facility] [address] MCHC mass conc (RBC) 31.6 g/dL Low 32.0-35.0 [facility] Comment on above: Order Comment: Yes: Add to Previous draw if able Performed By: #### 3 5200, 63068, 46227, 99700 #### [facility] [address] MCV Entitic volume (RBC) 94.0 fL Normal 82.0-98.0 [facility] Comment on above: Order Comment: Yes: Add to Previous draw if able Performed By: #### 3 5200, 97939, 90867, 44035 #### [facility] [address] Nucleated RBC/100 WBC Ratio (Bld) 0 % Normal 0-[address] [facility] Comment on above: Order Comment: Yes: Add to Previous draw if able Performed By: #### 3 5200, 10264, 43365, 15794 #### [facility] [address] [place] [address], [facility] PLAT CNT 185 10*3/uL Normal 150-400 The [facility] Comment on above: Order Comment: Yes: Add to Previous draw if able Performed By: #### 3 5200, 52233, 37247, 32405 #### [facility] [address] [place] [address], [facility] RBC #/vol (Bld) 4.18 10*6/uL Normal 3.80-5.00 [facility] Comment on above: Order Comment: Yes: Add to Previous draw if able Performed By: #### 3 5200, 28476, 35189, 26593 #### [facility] [address] [place] [address], [facility] WBC #/vol (Bld) 6.85 10*3/uL Normal 4.00-10.60 [facility] Comment on above: Order Comment: Yes: Add to Previous draw if able Performed By: #### 3 5200, 77773, 78143, 49473 #### [facility] [address] [place] [address], [facility] POC GLUCOSE LABon 03-12-2018 Glucose mass conc 135 mg/dL High 70-100 [facility] Comment on above: Performed By: #### 3 5200, 63075, 47068, 29900 #### [facility] [address] [place] [address], [facility] Glucose mass conc 188 mg/dL High 70-100 [facility] Comment on above: Performed By: #### 3 5200, 88015, 30851, 50693 #### [facility] [address] [place] [address], [facility] Glucose mass conc 130 mg/dL High 70-100 [facility] Comment on above: Performed By: #### 3 5200, 32273, 71959, 15079 #### [facility] [address] [place] [address], [facility] Glucose mass conc 139 mg/dL High 70-100 [facility] Comment on above: Performed By: #### 3 5200, 51343, 31285, 14993 #### [facility] [address] [place] [address], [facility] UFH HEPARIN ASSAYon 03-12-19 19 UNFRACTIONATED HEPARIN 0.30 IU/mL Normal 0.30-0.[address] [facility] Comment on above: Order Comment: Yes: Add to Previous draw if able Result Comment: Kathy roxaban and Apixaban will interfere with the anti Xa assay used to monitor UFH and LMWH. Performed By: #### 3 5200, 57290, 37990, 84792 #### [facility] [address] [place] [address], [facility] APTTon 03-11-2018 aPTT Coag time (Bld) 88.3 s Critically high 25.0-35.0 [facility] Comment on above: Order Comment: [...] OF HEPARIN. Performed By: #### 3 5200, 60415, 09846, 08012 #### [facility] [address] aPTT Coag time (Bld) 50.4 s High 25.0-35.0 [facility] Comment on above: Order Comment: [...] THIS PURPOSE. Performed By: #### 3 5200, 86314, 60139, 33425 #### [facility] [address] BASIC METABOLIC PANELon Calcium mass conc 8.9 mg/dL Normal 8.6-10.3 [facility] Comment on above: Order Comment: No: D o not add to previous draw Performed By: #### 3 5200, 42039, 53131, 45096 #### [facility] [address] [place] [address], [place] Chloride molar conc 101 mmol/L Normal 98-107 [facility] Comment on above: Order Comment: No: D o not add to previous draw Performed By: #### 3 5200, 03987, 64196, 85531 #### [facility] [address] [place] [address], [place] CO2 molar conc 29 mmol/L Normal 21-31 The [facility] Comment on above: Order Comment: No: D o not add to previous draw Performed By: #### 3 5200, 81650, 50352, 87154 #### [facility] [address] [place] [address], [place] Creatinine mass conc 0.55 mg/dL Low 0.60-1.20 [facility] Comment on above: Order Comment: No: D o not add to previous draw Performed By: #### 3 5200, 94161, 00366, 49225 #### [facility] [address] [place] [address], [place] GFR/1.73 sq M predicted among blacks MDRD vol rate/area (S/P/Bld) mL/min/{1.73_m2} Normal >60 [facility] Comment on above: Order Comment: No: D o not add to previous draw Result Comment: Calc ulation may not be valid for patients over 70 years Performed By: #### 3 5200, 20988, 92788, 59349 #### [facility] [address] [place] [address], [place] GFR/1.73 sq M predicted among non-blacks MDRD vol rate/area (S/P/Bld) mL/min/{1.73_m2} Normal >60 [facility] Comment on above: Order Comment: No: D o not add to previous draw Result Comment: Calc ulation may not be valid for patients over 70 years Performed By: #### 3 5200, 87394, 09913, 13212 #### [facility] [address] [place] [address], [facility] Glucose mass conc 152 mg/dL High 70-100 [facility] Comment on above: Order Comment: No: D o not add to previous draw Performed By: #### 3 5200, 39906, 10060, 78202 #### [facility] [address] [place] [id number], [facility] Potassium molar conc 3.7 mmol/L Normal 3.5-5.[address] [facility] Comment on above: Order Comment: No: D o not add to previous draw Performed By: #### 3 5200, 19723, 12938, 16097 #### [facility] [address] [place] [id number], [facility] Sodium molar conc 138 mmol/L Normal 136-145 [facility] Comment on above: Order Comment: No: D o not add to previous draw Performed By: #### 3 5200, 75256, 94281, 52419 #### [facility] [address] [facility] [address], [facility] Urea nitrogen mass conc 12 mg/dL Normal 7-[address] [facility] Comment on above: Order Comment: No: D o not add to previous draw Performed By: #### 3 5200, 91691, 55406, 35655 #### [facility] [address] [facility] [address], [facility] CBC W/DIFFon 03-11-2018 ABS BASOPHILS 0.1 10*3/uL Normal 0.0-0.2 The [facility] Comment on above: Order Comment: No: D o not add to previous draw Performed By: #### 3 5200, 65230, 16793, 74230 #### [facility] [address] [place] [address], [facility] ABS IMM GRANS 0.0 10*3/uL Normal 0.0-0.2 [facility] Comment on above: Order Comment: No: D o not add to previous draw Performed By: #### 3 5200, 95060, 89899, 81041 #### [facility] [address] [place] [address], [facility] ABS NEUTROPHILS 4.7 10*3/uL Normal 1.6-7.6 The [facility] Comment on above: Order Comment: No: D o not add to previous draw Performed By: #### 3 5200, 04309, 50284, 70143 #### [facility] [address] [place] [address], [facility] Basophils #/vol (Bld) 0.9 % Normal 0.0-1.[address] [facility] Comment on above: Order Comment: No: D o not add to previous draw Performed By: #### 3 5200, 27346, 55734, 17717 #### [facility] [address] [place] [address], [facility] Eosinophils #/vol (Bld) 0.2 10*3/uL Normal 0.0-0.[address] [facility] Comment on above: Order Comment: No: D o not add to previous draw Performed By: #### 3 5200, 83806, 64617, 03945 #### [facility] [address] [place] [address], [facility] Eosinophils/100 WBC (Bld) 2.4 % Normal 0.0-6.[address] [facility] Comment on above: Order Comment: No: D o not add to previous draw Performed By: #### 3 5200, 26405, 75494, 60519 #### [facility] [address] [place] [address], [facility] Erythrocyte distribution width Ratio (RBC) 16.1 % High 11.5-15.[address] [facility] Comment on above: Order Comment: No: D o not add to previous draw Performed By: #### 3 5200, 66553, 58864, 56305 #### [facility] [address] Hematocrit Volume Fraction (Bld) 38.7 % Normal 36.0-45.[address] [facility] Comment on above: Order Comment: No: D o not add to previous draw Performed By: #### 3 5200, 59413, 84213, 82431 #### [facility] [address] [place] [address], [facility] Hemoglobin mass conc (Bld) 12.5 g/dL Normal 12.0-15.[address] [facility] Comment on above: Order Comment: No: D o not add to previous draw Performed By: #### 3 5200, 71865, 29785, 60424 #### [facility] [address] [place] [address], [facility] IMMATURE GRANS 0.6 % Normal 0.0-1.0 [facility] Comment on above: Order Comment: No: D o not add to previous draw Performed By: #### 3 5200, 26368, 02792, 56905 #### [facility] [address] [place] [address], [facility] Lymphocytes #/vol (Bld) 1.3 10*3/uL Normal 1.2-4.[address] [facility] Comment on above: Order Comment: No: D o not add to previous draw Performed By: #### 3 5200, 29046, 65682, 91764 #### [facility] [address] [place] [address], [facility] Lymphocytes/100 WBC (Bld) 18.6 % Low 20.0-45.[address] [facility] Comment on above: Order Comment: No: D o not add to previous draw Performed By: #### 3 5200, 24441, 16031, 19494 #### [facility] [address] [place] [address], [facility] MCH Entitic mass (RBC) 29.9 pg Normal 27.0-33.[address] [facility] Comment on above: Order Comment: No: D o not add to previous draw Performed By: #### 3 5200, 13296, 87706, 12736 #### [facility] [address] [place] [address], [facility] MCHC mass conc (RBC) 32.3 g/dL Normal 32.0-35.[address] [facility] Comment on above: Order Comment: No: D o not add to previous draw Performed By: #### 3 5200, 35017, 57430, 93276 #### [facility] [address] [place] [address], [facility] MCV Entitic volume (RBC) 92.6 fL Normal 82.0-98.[address] [facility] Comment on above: Order Comment: No: D o not add to previous draw Performed By: #### 3 5200, 95548, 50717, 93508 #### [facility] [address] [place] [address], [facility] Monocytes #/vol (Bld) 0.5 10*3/uL Normal 0.1-1.[address] [facility] Comment on above: Order Comment: No: D o not add to previous draw Performed By: #### 3 5200, 44273, 28043, 97049 #### [facility] [address] [place] [address], [facility] MONOS 7.0 % Normal 5.0-12.[address] [facility] Comment on above: Order Comment: No: D o not add to previous draw Performed By: #### 3 5200, 85877, 67729, 48971 #### [facility] [address] [place] [address], [facility] Neutrophils/100 WBC (Bld) 70.5 % Normal 40.0-72.[address] [facility] Comment on above: Order Comment: No: D o not add to previous draw Performed By: #### 3 5200, 89717, 97567, 90052 #### [facility] [address] [place] Nucleated RBC/100 WBC Ratio (Bld) 0 % Normal 0-[address] [facility] Comment on above: Order Comment: No: D o not add to previous draw Performed By: #### 3 5200, 38048, 64528, 24381 #### [facility] [address] [place] [address], [facility] PLAT CNT 189 10*3/uL Normal 150-400 The [facility] Comment on above: Order Comment: No: D o not add to previous draw Performed By: #### 3 5200, 26306, 75694, 79169 #### [facility] [address] [place] [address], [facility] RBC #/vol (Bld) 4.18 10*6/uL Normal 3.80-5.00 The [facility] Comment on above: Order Comment: No: D o not add to previous draw Performed By: #### 3 5200, 18064, 03739, 90350 #### [facility] [address] [place] [address], [facility] WBC #/vol (Bld) 6.71 10*3/uL Normal 4.00-10.60 [facility] Comment on above: Order Comment: No: D o not add to previous draw Performed By: #### 3 5200, 87847, 32665, 19935 #### [facility] [address] [place] [address], [facility] POC GLUCOSE LABon 03-11-2018 Glucose mass conc 128 mg/dL High 70-100 [facility] Comment on above: Performed By: #### 3 5200, 51848, 38058, 69526 #### [facility] [address] [place] [id number], [facility] Glucose mass conc 100 mg/dL Normal 70-100 [facility] Comment on above: Performed By: #### 3 5200, 85305, 07982, 62291 #### [facility] [address] [facility] Glucose mass conc 158 mg/dL High 70-100 [facility] Comment on above: Performed By: #### 3 5200, 36905, 91665, 43613 #### [facility] [address] UFH HEPARIN ASSAYon 03-11-19 19 UNFRACTIONATED HEPARIN 0.35 IU/mL Normal 0.30-0.[address] [facility] Comment on above: Order Comment: Yes: Add to Previous draw if able Result Comment: Kathy roxaban and Apixaban will interfere with the anti Xa assay used to monitor UFH and LMWH. RESULTS CHECKED AND CALLED. ACCURATELY READ BACK BY ANANYA GUERRA RN AT 15:51 CLINICAL SIGNIFICANCE OF THE PTT RESULT IS QUESTIONABLE IN THE PRESENCE OF HEPARIN. Performed By: #### 3 5200, 61462, 09309, 17446 #### [facility] [address] [facility]. [address] UNFRACTIONATED HEPARIN 0.28 IU/mL Low 0.30-0.[address] [facility] Comment on above: Result Comment: Marina roxaban and Apixaban will interfere with the anti Xa assay used to monitor UFH and LMWH. Performed By: #### 3 5200, 13433, 34233, 58641 #### [facility] [address] [facility]. [address] APTTon 03-10-2018 aPTT Coag time (Bld) 53.0 s High 25.0-35.0 [facility] Comment on above: Order Comment: [...] OF HEPARIN. Performed By: #### 3 5200, 09895, 46454, 53165 #### [facility] [address] [place] [address], [facility] aPTT Coag time (Bld) 47.7 s High 25.0-35.0 [facility] Comment on above: Order Comment: [...] THIS PURPOSE. Performed By: #### 3 5200, 97555, 88824, 14519 #### [facility] [address] [place] [address], [facility] aPTT Coag time (Bld) 68.2 s High 25.0-35.[address] [facility] Comment on above: Order Comment: No: [...] THIS PURPOSE. Performed By: #### 3 5200, 42381, 37544, 09620 #### [facility] [address] [place] [address], [facility] BASIC METABOLIC PANELon 02-0 Calcium mass conc 8.7 mg/dL Normal 8.6-10.3 [facility] Comment on above: Order Comment: No: D o not add to previous draw Performed By: #### 3 5200, 62007, 87454, 60677 #### [facility] [address] [place] [address], [facility] Chloride molar conc 100 mmol/L Normal 98-107 [facility] Comment on above: Order Comment: No: D o not add to previous draw Performed By: #### 3 5200, 98564, 66671, 32983 #### [facility] [address] [place] [address], [facility] CO2 molar conc 28 mmol/L Normal 21-31 [facility] Comment on above: Order Comment: No: D o not add to previous draw Performed By: #### 3 5200, 60745, 82100, 21809 #### [facility] [address] [place] [address], [facility] Creatinine mass conc 0.57 mg/dL Low 0.60-1.[address] [facility] Comment on above: Order Comment: No: D o not add to previous draw Performed By: #### 3 5200, 18587, 54945, 12461 #### [facility] [address] [place] [address], [facility] GFR/1.73 sq M predicted among blacks MDRD vol rate/area (S/P/Bld) mL/min/{1.73_m2} Normal >60 [facility] Comment on above: Order Comment: No: D o not add to previous draw Result Comment: Calc ulation may not be valid for patients over 70 years Performed By: #### 3 5200, 46432, 67231, 86898 #### [facility] [address] [place] [address], [facility] GFR/1.73 sq M predicted among non-blacks MDRD vol rate/area (S/P/Bld) mL/min/{1.73_m2} Normal >60 [facility] Comment on above: Order Comment: No: D o not add to previous draw Result Comment: Calc ulation may not be valid for patients over 70 years Performed By: #### 3 5200, 90398, 35117, 14278 #### [facility] [address] [place] [address], [place] Glucose mass conc 141 mg/dL High 70-100 [facility] Comment on above: Order Comment: No: D o not add to previous draw Performed By: #### 3 5200, 28468, 95694, 07249 #### [facility] [address] [place] [id number], [facility] Potassium molar conc 4.0 mmol/L Normal 3.5-5.[address] [facility] Comment on above: Order Comment: No: D o not add to previous draw Performed By: #### 3 5200, 02806, 25560, 43231 #### [facility] [address] [place] [address], [facility] Sodium molar conc 136 mmol/L Normal 136-145 [facility] Comment on above: Order Comment: No: D o not add to previous draw Performed By: #### 3 5200, 28616, 06861, 76242 #### [facility] [address] [place] [address], [facility] Urea nitrogen mass conc 12 mg/dL Normal 7-[address] [facility] Comment on above: Order Comment: No: D o not add to previous draw Performed By: #### 3 5200, 60579, 73364, 65092 #### [facility] [address] [place] [id number], [facility] CBC COMPLETE BLOOD COUNTon 0 - Erythrocyte distribution width Ratio (RBC) 16.1 % High 11.5-15.[address] [facility] Comment on above: Order Comment: No: D o not add to previous draw Performed By: #### 3 5200, 44497, 72673, 30694 #### [facility] [address] [place] [address], [facility] Hematocrit Volume Fraction (Bld) 39.4 % Normal 36.0-45.[address] [facility] Comment on above: Order Comment: No: D o not add to previous draw Performed By: #### 3 5200, 79102, 28627, 94325 #### [facility] [address] Hemoglobin mass conc (Bld) 12.9 g/dL Normal 12.0-15.[address] [facility] Comment on above: Order Comment: No: D o not add to previous draw Performed By: #### 3 5200, 04461, 44844, 23894 #### [facility] [address] [place] [address], [facility] MCH Entitic mass (RBC) 30.0 pg Normal 27.0-33.[address] [facility] Comment on above: Order Comment: No: D o not add to previous draw Performed By: #### 3 5200, 85400, 42502, 24204 #### [facility] [address] MCHC mass conc (RBC) 32.7 g/dL Normal 32.0-35.[address] [facility] Comment on above: Order Comment: No: D o not add to previous draw Performed By: #### 3 5200, 84218, 65307, 28068 #### [facility] [address] [place] [address], [facility] MCV Entitic volume (RBC) 91.6 fL Normal 82.0-98.0 [facility] Comment on above: Order Comment: No: D o not add to previous draw Performed By: #### 3 5200, 85792, 98837, 55919 #### [facility] [address] [place] [address], [facility] Nucleated RBC/100 WBC Ratio (Bld) 0 % Normal 0-[address] [facility] Comment on above: Order Comment: No: D o not add to previous draw Performed By: #### 3 5200, 99941, 03132, 96706 #### [facility] [address] [place] [id number], [facility] PLAT CNT 200 10*3/uL Normal 150-400 [facility] Comment on above: Order Comment: No: D o not add to previous draw Performed By: #### 3 5200, 92856, 03379, 90355 #### [facility] [address] [place] [address], [facility] RBC #/vol (Bld) 4.30 10*6/uL Normal 3.80-5.00 [facility] Comment on above: Order Comment: No: D o not add to previous draw Performed By: #### 3 5200, 62131, 99192, 84863 #### [facility] [address] [place] [address], [facility] WBC #/vol (Bld) 7.21 10*3/uL Normal 4.00-10.60 [facility] Comment on above: Order Comment: No: D o not add to previous draw Performed By: #### 3 5200, 03687, 22135, 05020 #### [facility] [address] UFH HEPARIN ASSAYon 03-10-19 19 UNFRACTIONATED HEPARIN 0.33 IU/mL Normal 0.30-0.[address] [facility] Comment on above: Result Comment: Kathy roxaban and Apixaban will interfere with the anti Xa assay used to monitor UFH and LMWH. UFH ADDED PER PROTOCOL Performed By: #### 3 5200, 52519, 72112, 46312 #### [facility] [address] UNFRACTIONATED HEPARIN 0.89 IU/mL High 0.30-0.[address] [facility] Comment on above: Order Comment: No: D o not add to previous draw Result Comment: Kathy roxaban and Apixaban will interfere with the anti Xa assay used to monitor UFH and LMWH. Performed By: #### 3 5200, 40213, 79337, 21658 #### [facility] [address] APTTon 03-09-2018 aPTT Coag time (Bld) 67.5 s High 25.0-35.[address] [facility] Comment on above: Order Comment: Yes: [...] HEPARIN. Performed By: #### 8 5123 #### [facility] [address] [place] [address], [facility] aPTT Coag time (Bld) 58.4 s High 25.0-35.[address] [facility] Comment on above: Order Comment: Yes: [...] PURPOSE. Performed By: #### 8 5123 #### [facility] [address] [place] [address], [facility] aPTT Coag time (Bld) 89.8 s Critically high 25.0-35.[address] [facility] Comment on above: Order Comment: Yes: [...] 14:02 Performed By: #### 8 5123 #### [facility] [address] [place] [address], [place] aPTT Coag time (Bld) 80.2 s Critically high 25.0-35.[address] [facility] Comment on above: Order Comment: Yes: [...] PURPOSE. Performed By: #### 8 5123 #### [facility] [address] aPTT Coag time (Bld) 47.3 s High 25.0-35.[address] [facility] Comment on above: Order Comment: No: [...] THIS PURPOSE. Performed By: #### 5 6101, 27918 #### [facility] [address] [facility]. [address] BNP (B-TYPE NATRIURETIC PEPT ISSA)on 03-09-2018 Natriuretic peptide B mass conc (Bld) 596 pg/mL High 0-[address] [facility] Comment on above: Order Comment: Yes: Add to Previous draw if able Result Comment: Give n the appropriate clinical setting a BNP result of >100 pg/mL indicates congestive heart failure. Performed By: #### 8 5123 #### [facility] [address] [facility]. [address] CBC COMPLETE BLOOD COUNTon 0 03-09-2018 Erythrocyte distribution width Ratio (RBC) 16.1 % High 11.5-15.[address] [facility] Comment on above: Order Comment: Yes: Add to Previous draw if able Performed By: #### 8 5123 #### [facility] [address] Hematocrit Volume Fraction (Bld) 42.2 % Normal 36.0-45.[address] [facility] Comment on above: Order Comment: Yes: Add to Previous draw if able Performed By: #### 8 5123 #### [facility] [address] [place] [id number], [facility] Hemoglobin mass conc (Bld) 13.7 g/dL Normal 12.0-15.[address] [facility] Comment on above: Order Comment: Yes: Add to Previous draw if able Performed By: #### 8 5123 #### [facility] [address] [place] [address], [facility] MCH Entitic mass (RBC) 30.0 pg Normal 27.0-33.[address] [facility] Comment on above: Order Comment: Yes: Add to Previous draw if able Performed By: #### 8 5123 #### [facility] [address] MCHC mass conc (RBC) 32.5 g/dL Normal 32.0-35.[address] [facility] Comment on above: Order Comment: Yes: Add to Previous draw if able Performed By: #### 8 5123 #### [facility] [address] MCV Entitic volume (RBC) 92.5 fL Normal 82.0-98.[address] [facility] Comment on above: Order Comment: Yes: Add to Previous draw if able Performed By: #### 8 5123 #### [facility] [address] Nucleated RBC/100 WBC Ratio (Bld) 0 % Normal 0-[address] [facility] Comment on above: Order Comment: Yes: Add to Previous draw if able Performed By: #### 8 5123 #### [facility] [address] [place] [address], [facility] PLAT CNT 208 10*3/uL Normal 150-400 [facility] Comment on above: Order Comment: Yes: Add to Previous draw if able Performed By: #### 8 5123 #### [facility] [address] [place] [address], [facility] RBC #/vol (Bld) 4.56 10*6/uL Normal 3.80-5.00 [facility] Comment on above: Order Comment: Yes: Add to Previous draw if able Performed By: #### 8 5123 #### [facility] [address] [place] [address], [facility] WBC #/vol (Bld) 9.26 10*3/uL Normal 4.00-10.60 [facility] Comment on above: Order Comment: Yes: Add to Previous draw if able Performed By: #### 8 5123 #### [facility] [address] [place] [address], [facility] Erythrocyte distribution width Ratio (RBC) 15.9 % High 11.5-15.0 [facility] Comment on above: Order Comment: Yes: Add to Previous draw if able Performed By: #### 5 0608 #### [facility] [address] [place] [address], [facility] Hematocrit Volume Fraction (Bld) 38.2 % Normal 36.0-45.0 [facility] Comment on above: Order Comment: Yes: Add to Previous draw if able Performed By: #### 5 0608 #### [facility] [address] [place] [address], [facility] Hemoglobin mass conc (Bld) 12.4 g/dL Normal 12.0-15.[address] [facility] Comment on above: Order Comment: Yes: Add to Previous draw if able Performed By: #### 5 0608 #### [facility] [address] [place] [id number], [facility] MCH Entitic mass (RBC) 29.5 pg Normal 27.0-33.[address] [facility] Comment on above: Order Comment: Yes: Add to Previous draw if able Performed By: #### 5 0608 #### [facility] [address] MCHC mass conc (RBC) 32.5 g/dL Normal 32.0-35.[address] [facility] Comment on above: Order Comment: Yes: Add to Previous draw if able Performed By: #### 5 0608 #### [facility] [address] MCV Entitic volume (RBC) 91.0 fL Normal 82.0-98.[address] [facility] Comment on above: Order Comment: Yes: Add to Previous draw if able Performed By: #### 5 0608 #### [facility] [address] Nucleated RBC/100 WBC Ratio (Bld) 0 % Normal 0-[address] [facility] Comment on above: Order Comment: Yes: Add to Previous draw if able Performed By: #### 5 0608 #### [facility] [address] [facility] PLAT CNT 193 10*3/uL Normal 150-400 [facility] Comment on above: Order Comment: Yes: Add to Previous draw if able Performed By: #### 5 0608 #### [facility] [address] RBC #/vol (Bld) 4.20 10*6/uL Normal 3.80-5.00 [facility] Comment on above: Order Comment: Yes: Add to Previous draw if able Performed By: #### 5 0608 #### [facility] [address] [place] [address], [facility] WBC #/vol (Bld) 8.57 10*3/uL Normal 4.00-10.60 [facility] Comment on above: Order Comment: Yes: Add to Previous draw if able Performed By: #### 5 0608 #### [facility] [address] [place] [address], [facility] ELECTROLYTE PANELon 03-09-19 19 Chloride molar conc 98 mmol/L Normal 98-107 [facility] Comment on above: Order Comment: Yes: Add to Previous draw if able Performed By: #### 3 5200, 91319, 58555, 93576 #### [facility] [address] [place] [address], [facility] CO2 molar conc 26 mmol/L Normal 21-31 [facility] Comment on above: Order Comment: Yes: Add to Previous draw if able Performed By: #### 3 5200, 43828, 32823, 45461 #### [facility] [address] [place] [address], [facility] Potassium molar conc 4.0 mmol/L Normal 3.5-5.[address] [facility] Comment on above: Order Comment: Yes: Add to Previous draw if able Performed By: #### 3 5200, 90585, 13795, 28704 #### [facility] [address] [place] [address], [facility] Sodium molar conc 135 mmol/L Low 136-145 [facility] Comment on above: Order Comment: Yes: Add to Previous draw if able Performed By: #### 3 5200, 77757, 67390, 08938 #### [facility] [address] [place] [address], [facility] MAGNESIUM BLOODon 03-09-2018 Magnesium mass conc 1.2 mg/dL Low 1.9-2.7 [facility] Comment on above: Order Comment: Yes: Add to Previous draw if able Performed By: #### 3 5200, 14849, 93635, 01113 #### [facility] [address] [place] [address], [facility] PORTABLE CHEST 1 VIEWon PORTABLE CHEST [address] [facility] Department of Radiology [address] [place] [id number] Patient Name: JACQUELYN KAPLAN : 1945 Sex: F Age: Race: White Pt. Location: [id number] Patient Status: I Ordered Date: 03/09/2018 2:15:00 [...] findings. Electronically signed by:Peña Díaz. Transcribed by: [email or web address], User Resident: BETH MILTON Electronically Signed by: PEÑA DÍAZ @ 03/09/2018 01:31 PM I personally read this/these film(s) with this resident Normal The [facility] Comment on above: Order Comment: Yes: Add to Previous draw if able PROTHROMBIN TIMEon INR Coag RelTime (PPP) 1.78 {INR} High 0.91-1.[address] [facility] Comment on above: Result Comment: ACCC P [...] 1995;108:[id number]. Performed By: #### 8 5123 #### [facility] [address] Prothrombin time (PT) Coag time (PPP) 20.8 s High 12.3-14.[address] [facility] Comment on above: Result Comment: ALL RESULTS MUST BE INTERPRETED WITH RESPECT TO BLOOD DRAWING ARTIFACT OR DILUTION ERROR OF ANTICOAGULANT AT THE TIME OF SAMPLING. Performed By: #### 8 5123 #### [facility] [address] [place] [address], [facility] INR Coag RelTime (PPP) 2.82 {INR} High 0.91-1.[address] [facility] Comment on above: Order Comment: No: [...] CHEST 1995;108:[id number]. Performed By: #### 5 6101, 71090 #### [facility] [address] Prothrombin time (PT) Coag time (PPP) 29.9 s High 12.3-14.[address] [facility] Comment on above: Order Comment: No: D o not add to previous draw Result Comment: ALL RESULTS MUST BE INTERPRETED WITH RESPECT TO BLOOD DRAWING ARTIFACT OR DILUTION ERROR OF ANTICOAGULANT AT THE TIME OF SAMPLING. Performed By: #### 5 6101, 96207 #### [facility] [address] TROPONIN-Ion 03-09-2018 Troponin I.cardiac mass conc 0.01 ng/mL Normal 0.00-0.[address] [facility] Comment on above: Order Comment: No: D o not add to previous draw Result Comment: REFE RENCE RANGES: 0.00 - 0.04 ng/ml NORMAL 0.05 - 0.50 ng/ml INDETERMINATE > 0.50 ng/ml CONSISTENT WITH AN M.I. Performed By: #### 3 5200 #### [facility] [address] [place] [address], [facility] Troponin I.cardiac mass conc 0.01 ng/mL Normal 0.00-0.04 [facility] Comment on above: Order Comment: No: D o not add to previous draw Result Comment: REFE RENCE RANGES: 0.00 - 0.04 ng/ml NORMAL 0.05 - 0.50 ng/ml INDETERMINATE > 0.50 ng/ml CONSISTENT WITH AN M.I. Performed By: #### 3 5200 #### [facility] [address] [place] [address], [facility] Troponin I.cardiac mass conc 0.01 ng/mL Normal 0.00-0.04 [facility] Comment on above: Order Comment: No: D o not add to previous draw Result Comment: REFE RENCE RANGES: 0.00 - 0.04 ng/ml NORMAL 0.05 - 0.50 ng/ml INDETERMINATE > 0.50 ng/ml CONSISTENT WITH AN M.I. Performed By: #### 3 5200, 28619, 02956, 46415 #### [facility] [address] TSH3on 03-09-2018 TSH 3RD GENERATION 3.21 uIU/mL Normal 0.34-5.60 [facility] Comment on above: Order Comment: Yes: Add to Previous draw if able Performed By: #### 3 5200, 28516, 79308, 71412 #### [facility] [address] UFH HEPARIN ASSAYon 03-09-19 19 UNFRACTIONATED HEPARIN >1.00 Critically high 0.30-0.[address] [facility] Comment on above: Result Comment: Kathy roxaban and Apixaban will interfere with the anti Xa assay used to monitor UFH and LMWH. Performed By: #### 8 5123 #### [facility] [address] [place] [address], [facility] UNFRACTIONATED HEPARIN >1.00 Critically high 0.30-0.[address] [facility] Comment on above: Order Comment: Yes: Add to Previous draw if able Result Comment: Kathy roxaban and Apixaban will interfere with the anti Xa assay used to monitor UFH and LMWH. UFH = 2.28. UFH MAY BE ELEVATED IN THE PRESENCE OF OTHER ANTI-XA INHIBITORS. Performed By: #### 8 5123 #### [facility] [address] UNFRACTIONATED HEPARIN >1.00 Critically high 0.30-0.[address] [facility] Comment on above: Result Comment: Kathy roxaban [...] 2.62 Performed By: #### 8 5123 #### [facility] [address] Vital Signs Date Time Vital Sign Value Performing Clinician Leigh weiss 10-27-2022 12:14-0400 Diastolic blood pressure 53 mm[Hg] MD Gumaro Ordonez Work Phone: [facility] 10-27-2022 12:14-0400 Heart rate 73 /min MD Gumaro Ordonez Work Phone: [facility] 10-27-2022 12:14-0400 Respiratory rate 18 /min MD Gumaro Ordonez Work Phone: [facility] 10-27-2022 12:14-0400 SaO2% (BldA) [Mass fraction] 95 % MD Gumaro Ordonez Work Phone: [facility] 10-27-2022 12:14-0400 Systolic blood pressure 128 mm[Hg] MD Gumaro Ordonez Work Phone: [facility] 10-27-2022 10:54-0400 Body height 160.02 cm MD Gumaro Ordonez Work Phone: [facility] 10-27-2022 [id number]:[id number] Body weight 122.46 kg MD Gumaro Ordonez Work Phone: [facility] Encounters Encounter Date Encounter Type Care Provider Facility Start: 01-12-2023 End: 01-12-2023 ambulatory [facility] Start: 12-04-2022 End: 12-04-2022 ambulatory Joe Cosme Facility:[facility] Start: 12-04-2022 End: 12-04-2022 ambulatory MD Gumaro Ordonez Work Phone: [facility] Work Phone: Start: 12-04-2022 End: 12-04-2022 Patient encounter procedure MD Gumaro Ordonez Work Phone: [facility] Work Phone: Start: 11-14-2022 End: 11-14-2022 ambulatory [facility] Start: 10-27-2022 End: 10-27-2022 ambulatory Joe Cosme Facility:[facility] Start: 10-27-2022 End: 10-27-2022 Admission to same day surgery center MD Gumaro Ordonez Work Phone: [facility] Work Phone: Start: 10-18-2022 End: 10-18-2022 ambulatory [facility] Start: 10-12-2022 ambulatory Mikey NIELSON Facility:[facility] Start: 10-11-2022 End: 10-15-2022 ambulatory Mikey NIELSON Facility:[id number] Start: 09-22-2022 End: 09-22-2022 ambulatory [facility] Start: 07-17-2022 End: 07-17-[address] [facility] Start: 05-01-2022 End: 05-02-[address] GUMARO ORDONEZ Facility:[facility] Start: 03-22-2022 End: 03-23-[address] GUMARO ORDONEZ Facility:[facility] Start: 10-31-2021 End: 11-01-[address] GUMARO ORDONEZ Facility:[facility] Start: 09-28-2021 End: 09-29-2021 ambulatory ROSA Wadsworth ERASMOLEO Facility: Start: 03-18-2018 End: 03-24-2018 Evaluation and management of inpatient PHAM GABRIEL Facility:[facility] Start: 03-09-2018 End: 03-13-2018 Evaluation and management of inpatient STEPHANIE CARBALLO Facility:[facility] Procedures Date Procedure Procedure Detail Performing Clinician Start: 12-04-2022 Capsule endoscopy MD Gumaro Ordonez Work Phone: Start: 10-27-2022 Esophagogastroduodenoscopy MD Gumaro Jiang Work Phone: Start: 03-12-2018 [employer]into of Cardiac Rhythm, Single MOSHRIK ABD ALAMIR [...] Date Care Activity Detail Author Start: 12-04-2022 [facility] Start: 10-27-2022 [facility] Patient Education Colon polyps H emorrhoids (DC) Diverticulosis (DC) Hiatal Hernia (DC) [facility] Work Phone: Payers Date Payer Category Payer Self-pay 1958 Medicare [id number] 1958 Unknown [id number] 1945 Unknown [id number] 2.16.8 [id number] 1945 Unknown [id number] 2.16.8 [id number] 1945 Unknown [id number] 2.16.84 [id number] 1945 Unknown [id number] 2.16.84 [id number] 1946 Unknown [id number] 2.16.84 [id number] 1946 Unknown [id number] 2.16.84 [id number] 1945 Unknown [id number] 2.16.8 [id number] Unknown Carmen BC/TIOM [id number] Unknown [id number] 2.16.8 [id number] Unknown [id number] 2.16.8 [id number] Social History Date Type Detail Facility Start: 10-27-20[facility] Start: 1945 Sex Assigned At Female [facility] Goals Date Patient Goal Desired Activity /State Clinical Notes 09-29-2021 to 01-12-2023 Note Date & Type Note Facility 01-12-2023 Note [facility] Subjective Jacquelyn Kaplan is a [...] status post TAVR in May 2018 at [facility]. This was using a 23 mm Obregon [...] She had a discussion with her primary manager video Dr. Burnett and they agreed that left [...] Rfl: coenzyme Q-10 (more content not included)... [facility] 11-29-2022 Note I called and spoke t o patient. Explained the LAAO procedure, pre/post-procedure imaging, post-procedure medications, risks and benefits. She would like to proceed with the procedure. She is pending a video capsule study. Please schedule her for an appt with Dr. Carr for further discussion. [facility] 11-14-2022 Note [facility] CARDIOLOGY PROGR ESS NOTE [...] and she p (more content not included)... [facility] 11-14-2022 Note Patient here for 4 w [place] follow up GI visit. She underwent upper and lower scopes at [facility]. Per patient, Dr. Cosme cleared her to resume Xarelto, but she has not done so yet. She wanted to discuss with Dr. Burnett first. Still denies chest pain, SOB, palpitations, and bleeding. Patient expressed interest in the Watchman/Amulet device. Review of Systems Musculoskeletal: Positive for muscle weakness. All other systems reviewed and are negative. [facility] 10-18-2022 Note [facility] CARDIOLOGY PROGR ESS NOTE [...] daily weights, I (more content not included)... [facility] 10-18-2022 Note Patient here for fol low up [facility] discharge for GI bleed. She takes Xarelto for afib, but this was stopped, along with aspirin. Chest tightness and SOB has resolved and she's feeling much better. Doing more walking throughout her house. Denies lightheadedness and falls. Review of Systems Musculoskeletal: Positive for muscle weakness. All other systems reviewed and are negative. [facility] 10-11-2022 Note i [facility] 09-22-2022 Note [place] [facility] Subjective Jacquelyn Kaplan is a [...] status post TAVR in May 2018 at [facility]. This was using a 23 mm Obregon [...] , Rfl: Recent (more content not included)... [facility] 07-17-2022 Note [facility] CARDIOLOGY PROGR ESS NOTE [...] provided. Patient verbal (more content not included)... [facility] 07-17-2022 Note Patient here for 6 m o follow up PAF, aortic valve disorder, CHF, carotid artery stenosis, and hypertension. She had echo in Feb 2022 at [facility]. Denies chest pain, SOB, palpitations, and bleeding on Eliquis. Had routine labs in April 2022. Review of Systems Respiratory: Positive for cough. Musculoskeletal: Positive for arthritis, back pain, joint pain, muscle weakness and myalgias. Neurological: Positive for loss of balance. All other systems reviewed and are negative. [facility] 03-22-2022 Note PROCEDURE: XR ANKLE LT MIN [...] authenticated by: FABRICIO BANKS Date: 2022-03-22 10:[address] [facility] 09-29-2021 Note PROCEDURE: XR ANKLE LT MIN [...] authenticated by: GENE BERMUDEZ Date: 2021-09-29 10:[address] [facility] Evaluation note No assessment information [facility] Work Phone: Summary Purpose Family History No Family History Records Found Relationship Condition Age at Onset Recorded Date/T oliver Not Specified Malignant neoplasm of pancreas Unknown father Malignant neoplasm of kidney Unknown Malignant neoplasm of liver Unknown Advance Directives No Advanced Directives Records Found Advance Directive Response Recorded Date/ Time Advance Directives No October 10:12am Hospital Course Note MR#: [id number] I [facility] Pt. Name: Jacquelyn Kaplan Admitted: 03/09/2018 Discharged: [...] (more content not included)... Note MR#: [id number] [facility] Pt. Name: Jacquelyn Kaplan Admitted: 03/18/2018 Discharged: [...] was no chest pain. She went to [facility], was found to have elevated BNP. She [...] section and content) DATE CREATED AUTHOR 03/26/2018 [facility] DATE CREATED AUTHOR AUTHOR'S ORGANIZ ATION 05/10/[address] [facility] DATE CREATED AUTHOR AUTHOR'S ORGANIZ ATION 11/08/2022 [facility] DATE CREATED AUTHOR AUTHOR'S ORGANIZ ATION 01/15/2023 [facility] DATE CREATED AUTHOR AUTHOR'S ORGANIZ ATION 01/17/2023 [facility] Care Teams (unrecognized sec tion and content) [...] BE BASED ON THE PRIMARY CLINICAL RECORDS. [employer] provides no warranty or guarantee of the accuracy or completeness of information in this document.
== END 2023-02-12 09:51 | disposition home or self-care (01) ==
LOC: WC 09:50
PROVIDERS: PCP Family Medicine; Visit Provider Physician Assistant
DX: E11.621 Type 2 diabetes mellitus with foot ulcer (principal); L97.428 Non-pressure chronic ulcer of left heel and midfoot with other specified severity
CPT/HCPCS: G0463

== ENCOUNTER 2023-02-12 10:32 | Outpatient (OUT) | payer MEDICARE, SELFPAY ==
--- OUTSIDE RECORDS SUMMARY | 2023-02-12 10:39 | XMS_ITS | CCD ---
Author Name Unknown Address [address] [place] [address] Organization [facility] Care Team Providers Care Robot Designer Name Role Phone STEPHANIE CARBALLO Referring Unavailable SELF, REFERRED Primary Care Unavailable RAGHAVENDRA PERRY Admitting Unavailable PHAM SIMMONS Attending Unavailable ID Procedure Practitioner Unavailab OMEGA Ramirez Surgeon Unavailable ID Procedure Practitioner Unavailab NATA Tinoco ABD Surgeon [...] NADERER, DR GUMARO Fernandes Primary Care Unavailable [place], DR FABRICIO Novak Consulting Unavailable HIGHLANDER, ROSA Wadsworth Admitting Unavailable HIGHLANDER, ROSA Wadsworth Attending Unavailable HIGHLANDER, PETER D Consulting Unavailable Mikey NIELSON Attending Unavailable MD Joe Cosme Attending Provider [phone] MD Gumaro Ordonez Primary Care Provider DEN BURNETT Attending Unavailable JOLENE CARR Attending [...] [SULFA (SULFONAMIDE ANTIBIOTICS)] Drug allergy (disorder) 07-11-2013 [facility] Repository (1 source) Sulfonamides (Antibiotic) Drug allergy (disorder) 10-27-2022 [facility] Repository Medications Current Medications Medication Drug Class(es) [...] disease (1 source) Atherosclerotic heart disease of [place] coronary artery without angina pectoris; Translations: [ATHSCL HEART DISEASE OF [place] CORONARY ARTERY W/O ANG PCTRS] Onset: 9 [...] 9 Chronic Other aftercare (1 source) 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; Translations: [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] Onset: 3 Episodic Other aftercare (1 source) group home (current) use of anticoagulants; Translations: [terminologist (current) use of anticoagulants] Onset: 3 Episodic [...] Range Facility Office Visiton 01-12-2023 Follow-up visit [id number] Jacquelyn Kaplan 1945 F Date Provider Department Center 01/12/2023 JOLENE LOPEZ ED[facility] Family History Problem Relation Age of Onset Aortic stenosis Father Other Father Family Status - Relation Status Age at Father Level of Service:11553 ID OFFICE/OUTPATIENT ESTABLISHED HIGH MDM 40-54 MIN Normal [facility] Office Visiton 11-14-2022 Follow-up visit [id number] Jacquelyn Kaplan 1945 F Date Provider Department Center 11/14/2022 LauraDEN FABIAN EDEN [facility] Family History Problem Relation Age of Onset Aortic stenosis Father Other Father Family Status - Relation Status Age at Father Level of Service:86479 ID OFFICE/OUTPATIENT ESTABLISHED LOW MDM 20-29 MIN Normal [facility] Glucose Glucometer (BldC) [M ass/Vol]Ordered By: Joe Cosme on 10-27-2022 Glucose [Mass/Vol] 220 mg/dL [facility] Comment on above: Random Glucose Refer ence Range is dependent on time and content of last meal. Glucose of more than 200 mg/dL in a nonstressed, ambulatory subject supports the diagnosis of Diabetes Mellitus. Glucose Poct Glucometerson 0 10-27-2022 Commemt1 Glu2: Cleaned Meter Normal [facility] Comment on above: Result Comment: PERF ORMED BY: [facility] [address] [place] [address] PATHOLOGIST SALES REPRESENTATIVE SUPERVISOR NORMA MONTANA M.D. Performed By: #### G LULS #### Point of Care testing , Glucose [Mass/Vol] 220 mg/dL Normal [facility] Comment on above: Result Comment: [place] Glucose Reference Range is dependent on time and content of last meal. Glucose of more than 200 mg/dL in a nonstressed, ambulatory subject supports the diagnosis of Diabetes Mellitus. Performed By: #### G MELODIE #### Point of Care testing , Ryan 10-27-2022 L Specimen: [id number] Received: 10/27/22 Status: TRAVIS Casas Num: [id number] Spec Type: Surgical Subm Dr: Joe Cosme MD Tissues: A Colon Biopsy (ASCND COL) Procedures: HE/Mike Schmidt/Awa L4 Age/ Patient Sex Location Account Attending Physician Jacquelyn Kaplan 77/F [id number] Joe Cosme MD SPEC NUM: [id number] RECD: 10/27/22 STATUS: TRAVIS AMADOR NUM: [id number] DELMY: 10/27/22 DR: Joe Cosme MD ENTERED: 10/27/22 [facility] DR: SPEC TYPE: Surgical DEPT: S ENTERED BY: [id number] RECV BY: [id number] ORDERED: HE/2, Gross/Micro L4 ORDERED: HE/2, Gross/Micro [...] microscopic examination confirms the diagnosis. CPT Codes 29645 Specimen: [id number] Received: 10/27/22 Status: TRAVIS Rereagan Num: [id number] Spec Type: Surgical Subm Dr: Joe Cosme MD Tissues: A Colon Biopsy (ASCND COL) Procedures: HE/2, Gross/Micro L4 Patient: Jacquelyn Kaplan [id number] (Continued) Signed (signatur e on file) Akshat-Ariel Dominguez MD 10/30/22 1331 [facility] No Panel InformationOrdered By: Joe Cosme on 10-27-2022 Bedside Glucose Comment Glu2: cleaned meter [facility] Office Visiton 10-18-2022 Follow-up visit [id number] Jacquelyn Kaplan 1945 F Date Provider Department Center 10/18/2022 3848-DEN BURNETT [facility] Family History Problem Relation Age of Onset Aortic stenosis Father Other Father Family Status - Relation Status Age at Father Level of Service:52553 ID OFFICE/OUTPATIENT ESTABLISHED MOD MDM 30-39 MIN Normal [facility] Outside Colonoscopyon 2022 Outside Colonoscopy [id number] B#1.00CD:127 Normal [facility] Lab Reportson 10-16-2022 Lab Reports [id number] 6A#1.00CD:127 Normal [facility] Lab Reports [id number] D5#1.00CD:127 Normal [facility] Lab Reports [id number] 6#1.00CD:127 Normal [facility] Lab Reports [id number] 5#1.00CD:[address] [facility] Outside Colonoscopyon 2022 Outside Colonoscopy [id number] 2#1.00CD:[address] [facility] Consultation Noteon 10-13-19 Consultation Note [id number] 7F#1.00CD:[address] [facility] Consultation Note [id number] 7#1.00CD:[address] [facility] Lab Reportson 10-12-2022 Lab Reports [id number] 1#1.00CD:[address] [facility] Office Visiton 09-22-2022 Follow-up visit [id number] Jacquelyn Kaplan 1945 F Date Provider Department Center 09/22/2022 367-JOLENE CARR EDEN [facility] Family History Problem Relation Age of Onset Aortic stenosis Father Other Father Family Status - Relation Status Age at Father Level of Service:51792 ID OFFICE/OUTPATIENT ESTABLISHED MOD MDM 30-39 MIN Reason for Visit and Comments: Follow-up [849341] - Patient is here today per Dr burnett request Valve Disorder [3372] [facility] 36on 08-14-2022 36 Pt called in requesting a refill [facility] Office Visiton 07-17-2022 Follow-up visit [id number] Che 1945 F Date Provider Department Center 07/17/2022 3848-DEN BURNETT EDEN [facility] Family History Problem Relation Age of Onset Aortic stenosis Father Other Father Family Status - Relation Status Age at Father Level of Service:33092 ID OFFICE/OUTPATIENT ESTABLISHED LOW MDM 20-29 MIN Normal [facility] CBC AUTO DIFFon 05-01-2022 BASO # 0.1 103/ul Normal 0.0-0.1 [facility] Comment on above: Performed By: #### C BC ####[facility] [address] [place] [address]Dr. Sugey Dominguez Basophils/100 WBC (Bld) 0.8 % Normal 0.2-2.0 [facility] Comment on above: Performed By: #### C BC ####[facility] [address] [place] [address]Dr. Sugey Dominguez EO # 0.2 103/ul Normal 0.0-0.7 [facility] Comment on above: Performed By: #### C BC ####[facility] [address] [place] [address]Dr. Sugey Dominguez Eosinophils/100 WBC (Bld) 3.5 % Normal 0.9-7.0 [facility] Comment on above: Performed By: #### C BC ####[facility] [address] [place] [address]Dr. Sugey Dominguez Erythrocyte distribution width (RBC) [Ratio] 13.6 % Normal 11.0-15.0 [facility] Comment on above: Performed By: #### C BC ####[facility] [address] [place] [address]Dr. Sugey Dominguez Hematocrit (Bld) [Volume fraction] 40.7 % Normal 36.0-48.0 [facility] Comment on above: Performed By: #### C BC ####[facility] [address] [place] [address]Dr. Sugey Dominguez Hemoglobin (Bld) [Mass/Vol] 13.5 g/dL Normal 12.0-16.0 [facility] Comment on above: Performed By: #### C BC ####[facility] [address] [place] [address]Dr. Sugey Dominguez IG # 0.03 10e3/ul Normal 0.00-0.03 [facility] Comment on above: Performed By: #### C BC ####[facility] [address] [place] [address]Dr. Sugey Dominguez IG % 0.5 % Normal 0.0-0.5 [facility] Comment on above: Performed By: #### C BC ####[facility] [address] [place] [address]Dr. Sugey Dominguez LYMPH # 1.5 103/ul Normal 1.2-3.8 [facility] Comment on above: Performed By: #### C BC ####[facility] [address] [place] [address]DrDarci Dominguez Lymphocytes/100 WBC (Bld) 23.1 % Normal 20.5-60.0 [facility] Comment on above: Performed By: #### C BC ####[facility] [address] [place], [place] [address]DrDarci Dominguez MANUAL DIFF REQ NO Normal [facility] Comment on above: Performed By: #### C BC ####[facility] [address] [place] [id number]. Sugey Dominguez MCH (RBC) [Entitic mass] 30.8 pg Normal 26.7-34.0 [facility] Comment on above: Performed By: #### C BC ####[facility] [address] [place] [address]Dr. Sugey Dominguez MCHC (RBC) [Mass/Vol] 33.2 g/dL Normal 29.9-35.2 [facility] Comment on above: Performed By: #### C BC ####[facility] [address] [place] [address]DrDarci Dominguez MCV (RBC) [Entitic vol] 92.7 fL Normal 81.0-99.0 [facility] Comment on above: Performed By: #### C BC ####[facility] [address] [place] [address]DrDarci Dominguez MONO # 0.4 103/ul Normal 0.3-0.8 [facility] Comment on above: Performed By: #### C BC ####[facility] [address] [place] [address]Dr. Sugey Dominguez Monocytes/100 WBC (Bld) 6.8 % Normal 1.7-12.0 [facility] Comment on above: Performed By: #### C BC ####[facility] [address] [place] [address]Dr. Sugey Dominguez NEUT # 4.2 103/ul Normal 1.4-6.5 [facility] Comment on above: Performed By: #### C BC ####[facility] [address] [place] [address]Dr. Sugey Dominguez Neutrophils/100 WBC (Bld) 65.3 % Normal 43.0-75.0 [facility] Comment on above: Performed By: #### C BC ####[facility] [address] [place] [address]Dr. Sugey Dominguez Platelet mean volume (Bld) [Entitic vol] 10.1 fL Normal 9.5-13.5 [facility] Comment on above: Performed By: #### C BC ####[facility] [address] [place] [address]Dr. Sugey Dominguez PLT 166 103/ul Normal 150-450 [facility] Comment on above: Performed By: #### C BC ####[facility] [address] [place] [address]Dr. Sugey Dominguez RBC 4.39 106/ul Normal 4.20-5.40 [facility] Comment on above: Performed By: #### C BC ####[facility] [address] [place] [address]Dr. Sugey Dominguez WBC 6.4 103/ul Normal 4.0-11.0 [facility] Comment on above: Performed By: #### C BC ####[facility] [address] [place] [address]Dr. Sugey Dominguez FREE T3on 05-01-2022 FREE T3 1.80 pg/mlL Critically low 2.18-3.98 [facility] Comment on above: Performed By: #### L IPID, FT3, TSH, LIVER, BMP #### [facility] [address] [place] [address] [address] Sugey Dominguez FREE T4on 05-01-2022 Free T4 [Mass/Vol] 1.40 ng/dL Normal 0.76-1.46 [facility] Comment on above: Performed By: #### F T4 #### [facility] [address] [place] [address] Dr. Sugey Dominguez GLYCOHEMOGLOBIN A1Con 2022 ADA RECOMMENDATION SEE BELOW Normal [facility] Comment on above: Result Comment: ADA RECOMMENDED LIMIT 4.0 - 6.0 ADA THERAPEUTIC TARGET < 7.0 ACTION SUGGESTED > 7.0 Performed By: #### A 1C #### [facility] [address] [place] [address] Dr. Sugey Dominguez Glucose [Mass/Vol] 174 mg/dL Normal [facility] Comment on above: Performed By: #### A 1C #### [facility] [address] [place] [address] Dr. Sugey Dominguez HbA1c (Bld) [Mass fraction] 7.7 % Critically high 4.5-6.2 [facility] Comment on above: Performed By: #### A 1C #### [facility] [address] [place] [address] Dr. Sugey Dominguez LIPID PROFILEon 05-01-2022 CHOL-HDL RATIO NORM SEE BELOW Normal [facility] Comment on above: Result Comment: 3.3 - 4.4 LOW RISK 4.4 - 7.1 AVERAGE RISK 7.1 - 11.0 MODERATE RISK >11.0 HIGH RISK Performed By: #### L IPID, FT3, TSH, LIVER, BMP #### [facility] [address] [place] [address] Dr. Sugey Dominguez Cholesterol [Mass/Vol] 176 mg/dL Normal <=200 [facility] Comment on above: Performed By: #### L IPID, FT3, TSH, LIVER, BMP #### [facility] [address] [place] [address] Dr. Sugey Dominguez Cholesterol in HDL [Mass/Vol] 48 mg/dL Normal 40-60 [facility] Comment on above: Performed By: #### L IPID, FT3, TSH, LIVER, BMP #### [facility] [address] [place] [address] [address] Sugey Dominguez Cholesterol in LDL [Mass/Vol] 80.4 mg/dL Normal [facility] Comment on above: Performed By: #### L IPID, FT3, TSH, LIVER, BMP #### [facility] [address] [address] [address] Sugey Dominguez Cholesterol.total/Marina sterol in HDL [Mass ratio] 3.7 {ratio} Normal [facility] Comment on above: Performed By: #### L IPID, FT3, TSH, LIVER, BMP #### [facility] [address] [place] [address] [address] Sugey Dominguez HDL NORMAL > or = 60 mg/dl - LOW CARDIOVASCULAR RISK <40 mg/dl - HIGH CARDIOVASCULAR RISK Normal [facility] Comment on above: Performed By: #### L IPID, FT3, TSH, LIVER, BMP #### [facility] [address] [address] [address] Sugey Dominguez LDL CALC NORMAL SEE BELOW Normal [facility] Comment on above: Result Comment: <100 mg/dl OPTIMAL 100 - 129 mg/dl NEAR OR ABOVE OPTIMAL 130 - 159 mg/dl BORDERLINE HIGH 160 - 189 mg/dl HIGH >190 mg/dl VERY HIGH Performed By: #### L IPID, FT3, TSH, LIVER, BMP #### [facility] [address] [place] [address] [address] Sugey Dominguez Triglyceride [Mass/Vol] 238 mg/dL Critically high <=150 [facility] Comment on above: Performed By: #### L IPID, FT3, TSH, LIVER, BMP #### [facility] [address] [address] [address] Sugey Dominguez VLDL CALC 47.6 mg/dL Normal [facility] Comment on above: Performed By: #### L IPID, FT3, TSH, LIVER, BMP #### [facility] [address] [place] [address] Dr. Sugey Dominguez LIVER PROFILEon 05-01-2022 Albumin [Mass/Vol] 3.8 g/dL Normal 3.4-5.0 [facility] Comment on above: Performed By: #### L IPID, FT3, TSH, LIVER, BMP #### [facility] [address] [place] [address] Dr. Sugey Dominguez Albumin/Globulin [Mass ratio] 0.9 {ratio} Normal [facility] Comment on above: Performed By: #### L IPID, FT3, TSH, LIVER, BMP #### [facility] [address] [place] [address] Dr. Sugey Dominguez ALP [Catalytic activity/Vol] 81 U/L Normal 46-116 [facility] Comment on above: Performed By: #### L IPID, FT3, TSH, LIVER, BMP #### [facility] [address] [place] [address] Dr. Sugey Dominguez ALT [Catalytic activity/Vol] 23 U/L Normal 14-59 [facility] Comment on above: Performed By: #### L IPID, FT3, TSH, LIVER, BMP #### [facility] [address] [place] [address] Dr. Sugey Dominguez AST [Catalytic activity/Vol] 15 U/L Normal 15-37 [facility] Comment on above: Performed By: #### L IPID, FT3, TSH, LIVER, BMP #### [facility] [address] [place] [address] Dr. Sugey Dominguez BILI, CONJUGATED 0.2 mg/dL Normal 0.0-0.2 [facility] Comment on above: Performed By: #### L IPID, FT3, TSH, LIVER, BMP #### [facility] [address] [place] [address] Dr. Sugey Dominguez Bilirubin [Mass/Vol] 0.6 mg/dL Normal 0.2-1.0 [facility] Comment on above: Performed By: #### L IPID, FT3, TSH, LIVER, BMP #### [facility] [address] [place] [address] Dr. Sugey Dominguez Globulin (S) [Mass/Vol] 4.0 g/dL Normal [facility] Comment on above: Performed By: #### L IPID, FT3, TSH, LIVER, BMP #### [facility] [address] [place] [address] Dr. Sugey Dominguez Protein [Mass/Vol] 7.8 g/dL Normal 6.4-8.2 [facility] Comment on above: Performed By: #### L IPID, FT3, TSH, LIVER, BMP #### [facility] [address] [place] [address] Dr. Sugey Dominguez MICROALBUMIN, RAND URon 04-06 mALB <1.3 Normal <=30.0 [facility] Comment on above: Performed By: #### M ALBR #### [facility] [address] [place] [address] Dr. Sugey Dominguez PROF CHEM 8 (BAS METB)on Anion gap [Moles/Vol] 12.9 mmol/L Normal [facility] Comment on above: Performed By: #### L IPID, FT3, TSH, LIVER, BMP #### [facility] [address] [place] [address] Dr. Sugey Dominguez Calcium [Mass/Vol] 9.6 mg/dL Normal 8.5-10.1 [facility] Comment on above: Performed By: #### L IPID, FT3, TSH, LIVER, BMP #### [facility] [address] [place] [address] Dr. Sugey Dominguez Chloride [Moles/Vol] 96 mmol/L Critically low 98-107 [facility] Comment on above: Performed By: #### L IPID, FT3, TSH, LIVER, BMP #### [facility] [address] [place] [address] Dr. Sugey Dominguez CO2 [Moles/Vol] 30.8 mmol/L Normal 21.0-32.0 [facility] Comment on above: Performed By: #### L IPID, FT3, TSH, LIVER, BMP #### [facility] [address] [address] [address] Sugey Dominguez Creatinine [Mass/Vol] 1.74 mg/dL Critically high 0.55-1.02 [facility] Comment on above: Performed By: #### L IPID, FT3, TSH, LIVER, BMP #### [facility] [address] [place] [address] Dr. Sugey Dominguez EGFR-AF BURMESE 35 mL/min/1.73m2 Critically low >=60 [facility] Comment on above: Performed By: #### L IPID, FT3, TSH, LIVER, BMP #### [facility] [address] [place] [address] Dr. Sugey Dominguez EGFR-NON AF BURMESE 29 mL/min/1.73m2 Critically low >=60 [facility] Comment on above: Performed By: #### L IPID, FT3, TSH, LIVER, BMP #### [facility] [address] [place] [address] [address] Sugey Dominguez Glucose [Mass/Vol] 195 mg/dL Critically high 74-106 [facility] Comment on above: Performed By: #### L IPID, FT3, TSH, LIVER, BMP #### [facility] [address] [place] [address] Dr. Sugey Dominguez Potassium [Moles/Vol] 4.7 mmol/L Normal 3.5-5.1 [facility] Comment on above: Performed By: #### L IPID, FT3, TSH, LIVER, BMP #### [facility] [address] [place] [address] Dr. Sugey Dominguez Sodium [Moles/Vol] 135 mmol/L Critically low 136-145 [facility] Comment on above: Performed By: #### L IPID, FT3, TSH, LIVER, BMP #### [facility] [address] [place] [address] Dr. Sugey Dominguez Urea nitrogen [Mass/Vol] 47.0 mg/dL Critically high 7.0-18.0 [facility] Comment on above: Performed By: #### L IPID, FT3, TSH, LIVER, BMP #### [facility] [address] [address] [address] Sugey Dominguez Urea nitrogen/Creatinine [Mass ratio] 27.0 mg/mg Normal [facility] Comment on above: Performed By: #### L IPID, FT3, TSH, LIVER, BMP #### [facility] [address] [address] [address] Sugey Dominguez TSHon 05-01-2022 TSH 4.093 uIU/mL Critically high 0.358-3.740 [facility] Comment on above: Performed By: #### L IPID, FT3, TSH, LIVER, BMP #### [facility] [address] [address] [address] Sugey Dominguez GLYCOHEMOGLOBIN A1Con 2021 ADA RECOMMENDATION SEE BELOW Normal [facility] Comment on above: Result Comment: ADA RECOMMENDED LIMIT 4.0 - 6.0 ADA THERAPEUTIC TARGET < 7.0 ACTION SUGGESTED > 7.0 Performed By: #### A 1C ####[facility] [address] [place] [address]Dr. Sugey Dominguez Glucose [Mass/Vol] 183 mg/dL Normal [facility] Comment on above: Performed By: #### A 1C ####[facility] [address] [place], [place] [address]XvDarci Dominguez HbA1c (Bld) [Mass fraction] 8.0 % Critically high 4.5-6.2 [facility] Comment on above: Performed By: #### A 1C ####[facility] [address] [place], [place] [address]VvDr. Sugey Dominguez BASIC METABOLIC PANELon 03-08 Calcium mass conc 9.2 mg/dL Normal 8.6-10.3 [facility] Comment on above: Order Comment: No: D o not add to previous draw Performed By: #### 3 8910 #### [facility] [address] [place] [address], [facility] Chloride molar conc 96 mmol/L Low 98-107 [facility] Comment on above: Order Comment: No: D o not add to previous draw Performed By: #### 3 5200 #### [facility] [address] [place] [address], [facility] CO2 molar conc 27 mmol/L Normal 21-31 [facility] Comment on above: Order Comment: No: D o not add to previous draw Performed By: #### 3 5200 #### [facility] [address] [place] [address], [facility] Creatinine mass conc 0.70 mg/dL Normal 0.60-1.20 [facility] Comment on above: Order Comment: No: D o not add to previous draw Performed By: #### 3 5200 #### [facility] [address] [place] [address], [facility] GFR/1.73 sq M predicted among blacks MDRD vol rate/area (S/P/Bld) mL/min/{1.73_m2} Normal >60 [facility] Comment on above: Order Comment: No: D o not add to previous draw Result Comment: Calc ulation may not be valid for patients over 70 years Performed By: #### 3 5200 #### [facility] [address] [place] [address], [facility] GFR/1.73 sq M predicted among non-blacks MDRD vol rate/area (S/P/Bld) mL/min/{1.73_m2} Normal >60 [facility] Comment on above: Order Comment: No: D o not add to previous draw Result Comment: Calc ulation may not be valid for patients over 70 years Performed By: #### 3 5200 #### [facility] [facility] [address] [place] [address], [facility] Glucose mass conc 210 mg/dL High 70-100 The [facility] Comment on above: Order Comment: No: D o not add to previous draw Performed By: #### 3 5200 #### [facility] [address] [place] [address], [facility] Potassium molar conc 4.0 mmol/L Normal 3.5-5.1 The [facility] Comment on above: Order Comment: No: D o not add to previous draw Performed By: #### 3 5200 #### [facility] [address] [place] [address], [facility] Sodium molar conc 133 mmol/L Low 136-145 The [facility] Comment on above: Order Comment: No: D o not add to previous draw Performed By: #### 3 5200 #### [facility] [address] [place] [address], [facility] Urea nitrogen mass conc 20 mg/dL Normal 7-25 T he [facility] Comment on above: Order Comment: No: D o not add to previous draw Performed By: #### 3 5200 #### [facility] [address] CBC W/DIFFon 03-24-2018 ABS BASOPHILS 0.1 10*3/uL Normal 0.0-0.2 The [facility] Comment on above: Order Comment: No: D o not add to previous draw Performed By: #### 3 5200 #### [facility] [address] [facility] [address] ABS IMM GRANS 0.1 10*3/uL Normal 0.0-0.2 The [facility] Comment on above: Order Comment: No: D o not add to previous draw Performed By: #### 3 5200 #### [facility] [address] [place] [address], [facility] ABS NEUTROPHILS 4.7 10*3/uL Normal 1.6-7.6 The [facility] Comment on above: Order Comment: No: D o not add to previous draw Performed By: #### 3 5200 #### [facility] [address] Basophils #/vol (Bld) 1.1 % High 0.0-1.0 The [facility] Comment on above: Order Comment: No: D o not add to previous draw Performed By: #### 3 5200 #### [facility] [address] [place] [id number], [facility] Eosinophils #/vol (Bld) 0.3 10*3/uL Normal 0.0-0.5 The [facility] Comment on above: Order Comment: No: D o not add to previous draw Performed By: #### 3 5200 #### [facility] [address] [place] [address], [facility] Eosinophils/100 WBC (Bld) 3.3 % Normal 0.0-6.0 The [facility] Comment on above: Order Comment: No: D o not add to previous draw Performed By: #### 3 5200 #### [facility] [address] Erythrocyte distribution width Ratio (RBC) 16.2 % High 11.5-15.0 The [facility] Comment on above: Order Comment: No: D o not add to previous draw Performed By: #### 3 5200 #### [facility] [address] [address], [facility] Hematocrit Volume Fraction (Bld) 42.5 % Normal 36.0-45.0 The [facility] Comment on above: Order Comment: No: D o not add to previous draw Performed By: #### 3 5200 #### [facility] [address] [place] [id number], [facility] Hemoglobin mass conc (Bld) 13.7 g/dL Normal 12.0-15.0 The [facility] Comment on above: Order Comment: No: D o not add to previous draw Performed By: #### 3 5200 #### [facility] [address] [place] [id number], [place] IMMATURE GRANS 0.8 % Normal 0.0-1.0 The [facility] Comment on above: Order Comment: No: D o not add to previous draw Performed By: #### 3 5200 #### [facility] [address] [place] [address], [facility] Lymphocytes #/vol (Bld) 1.7 10*3/uL Normal 1.2-4.0 The [facility] Comment on above: Order Comment: No: D o not add to previous draw Performed By: #### 3 5200 #### [facility] [address] [place] [address], [facility] Lymphocytes/100 WBC (Bld) 22.1 % Normal 20.0-45.0 The [facility] Comment on above: Order Comment: No: D o not add to previous draw Performed By: #### 3 5200 #### [facility] [address] [facility] [place] [address], [facility] MCH Entitic mass (RBC) 30.0 pg Normal 27.0-33.0 Th e [facility] Comment on above: Order Comment: No: D o not add to previous draw Performed By: #### 3 5200 #### [facility] [address] [facility] [address], [facility] MCHC mass conc (RBC) 32.2 g/dL Normal 32.0-35.0 The [facility] Comment on above: Order Comment: No: D o not add to previous draw Performed By: #### 3 5200 #### [facility] [address] [facility]. [place] [id number], [facility] MCV Entitic volume (RBC) 93.2 fL Normal 82.0-98.0 The [facility] Comment on above: Order Comment: No: D o not add to previous draw Performed By: #### 3 5200 #### [facility] [address] [place] [address], [facility] Monocytes #/vol (Bld) 0.7 10*3/uL Normal 0.1-1.0 Th e [facility] Comment on above: Order Comment: No: D o not add to previous draw Performed By: #### 3 5200 #### [facility] [address] [place] [address], [facility] MONOS 9.8 % Normal 5.0-12.0 The [facility] Comment on above: Order Comment: No: D o not add to previous draw Performed By: #### 3 5200 #### [facility] [address] [place] [address], [facility] Neutrophils/100 WBC (Bld) 62.9 % Normal 40.0-72.0 The [facility] Comment on above: Order Comment: No: D o not add to previous draw Performed By: #### 3 5200 #### [facility] [address] [place] [address], [facility] Nucleated RBC/100 WBC Ratio (Bld) 0 % Normal 0-0 The [facility] Comment on above: Order Comment: No: D o not add to previous draw Performed By: #### 3 5200 #### [facility] [address] [facility] [place] [address], [facility] PLAT CNT 188 10*3/uL Normal 150-400 The [facility] Comment on above: Order Comment: No: D o not add to previous draw Performed By: #### 3 5200 #### [facility] [address] [facility] [place] [address], [facility] RBC #/vol (Bld) 4.56 10*6/uL Normal 3.80-5.00 The [facility] Comment on above: Order Comment: No: D o not add to previous draw Performed By: #### 3 5200 #### [facility] [address] [place] [address], [facility] WBC #/vol (Bld) 7.48 10*3/uL Normal 4.00-10.60 The [facility] Comment on above: Order Comment: No: D o not add to previous draw Performed By: #### 3 5200 #### [facility] [address] [place] [address], [facility] POC GLUCOSE LABon 03-24-2018 Glucose mass conc 241 mg/dL High 70-100 The [facility] Comment on above: Performed By: #### 3 5200 #### [facility] [address] [place] [address], [facility] Glucose mass conc 189 mg/dL High 70-100 The [facility] Comment on above: Performed By: #### 3 5200 #### [facility] [address] [place] [address], [facility] BASIC METABOLIC PANELon 03-08 Calcium mass conc 9.1 mg/dL Normal 8.6-10.3 The [facility] Comment on above: Order Comment: No: D o not add to previous draw Performed By: #### 3 5200 #### [facility] [address] [place] [address], [facility] Chloride molar conc 95 mmol/L Low 98-107 The [facility] Comment on above: Order Comment: No: D o not add to previous draw Performed By: #### 3 5200 #### [facility] [address] [place] [address], [place] CO2 molar conc 32 mmol/L High 21-31 The [facility] Comment on above: Order Comment: No: D o not add to previous draw Performed By: #### 3 5200 #### [facility] [address] [place] [address], [place] Creatinine mass conc 0.71 mg/dL Normal 0.60-1.20 The [facility] Comment on above: Order Comment: No: D o not add to previous draw Performed By: #### 3 5200 #### [facility] [address] [place] [address], [place] GFR/1.73 sq M predicted among blacks MDRD vol rate/area (S/P/Bld) mL/min/{1.73_m2} Normal >60 The [facility] Comment on above: Order Comment: No: D o not add to previous draw Result Comment: Calc ulation may not be valid for patients over 70 years Performed By: #### 3 5200 #### [facility] [address] [place] [address], [facility] GFR/1.73 sq M predicted among non-blacks MDRD vol rate/area (S/P/Bld) mL/min/{1.73_m2} Normal >60 The [facility] Comment on above: Order Comment: No: D o not add to previous draw Result Comment: Calc ulation may not be valid for patients over 70 years Performed By: #### 3 5200 #### [facility] [address] [place] [address], [facility] Glucose mass conc 189 mg/dL High 70-100 The [facility] Comment on above: Order Comment: No: D o not add to previous draw Performed By: #### 3 5200 #### [facility] [address] [place] [address], [facility] Potassium molar conc 3.7 mmol/L Normal 3.5-5.1 [facility] Comment on above: Order Comment: No: D o not add to previous draw Performed By: #### 3 5200 #### [facility] [address] [place] [address], [place] Sodium molar conc 134 mmol/L Low 136-145 The [facility] Comment on above: Order Comment: No: D o not add to previous draw Performed By: #### 3 5200 #### [facility] [address] [place] [address], [place] Urea nitrogen mass conc 19 mg/dL Normal 7-25 T he [facility] Comment on above: Order Comment: No: D o not add to previous draw Performed By: #### 3 5200 #### [facility] [address] [place] [address], [facility] CBC COMPLETE BLOOD COUNTon 0 - Erythrocyte distribution width Ratio (RBC) 16.2 % High 11.5-15.0 The [facility] Comment on above: Order Comment: No: D o not add to previous draw Performed By: #### 3 5200 #### [facility] [address] [place] [address], [facility] Hematocrit Volume Fraction (Bld) 42.5 % Normal 36.0-45.0 The [facility] Comment on above: Order Comment: No: D o not add to previous draw Performed By: #### 3 5200 #### [facility] [address] [place] [address], [facility] Hemoglobin mass conc (Bld) 13.6 g/dL Normal 12.0-15.0 The [facility] Comment on above: Order Comment: No: D o not add to previous draw Performed By: #### 3 5200 #### [facility] [address] [place] [address], [facility] MCH Entitic mass (RBC) 29.9 pg Normal 27.0-33.0 Th e [facility] Comment on above: Order Comment: No: D o not add to previous draw Performed By: #### 3 5200 #### [facility] [address] [place] [address], [facility] MCHC mass conc (RBC) 32.0 g/dL Normal 32.0-35.0 The [facility] Comment on above: Order Comment: No: D o not add to previous draw Performed By: #### 3 5200 #### [facility] [address] [place] [address], [facility] MCV Entitic volume (RBC) 93.4 fL Normal 82.0-98.0 The [facility] Comment on above: Order Comment: No: D o not add to previous draw Performed By: #### 3 5200 #### [facility] [address] [place] [address], [facility] Nucleated RBC/100 WBC Ratio (Bld) 0 % Normal 0-0 The [facility] Comment on above: Order Comment: No: D o not add to previous draw Performed By: #### 3 5200 #### [facility] [address] [place] [address], [facility] PLAT CNT 198 10*3/uL Normal 150-400 The [facility] Comment on above: Order Comment: No: D o not add to previous draw Performed By: #### 3 5200 #### [facility] [address] [place] [address], [facility] RBC #/vol (Bld) 4.55 10*6/uL Normal 3.80-5.00 The [facility] Comment on above: Order Comment: No: D o not add to previous draw Performed By: #### 3 5200 #### [facility] [address] [place] [address], [facility] WBC #/vol (Bld) 7.49 10*3/uL Normal 4.00-10.60 The [facility] Comment on above: Order Comment: No: D o not add to previous draw Performed By: #### 3 5200 #### [facility] [address] POC GLUCOSE LABon 03-23-2018 Glucose mass conc 178 mg/dL High 70-100 The [facility] Comment on above: Performed By: #### 3 5200 #### [facility] [address] [place] [address], [facility] Glucose mass conc 163 mg/dL High 70-100 The [facility] Comment on above: Performed By: #### 3 5200 #### [facility] [address] [place] [address], [facility] Glucose mass conc 194 mg/dL High 70-100 The [facility] Comment on above: Performed By: #### 3 5200 #### [facility] [address] [place] [address], [facility] Glucose mass conc 164 mg/dL High 70-100 The [facility] Comment on above: Performed By: #### 3 5200 #### [facility] [address] [place] [address], [facility] BASIC METABOLIC PANELon - Calcium mass conc 9.0 mg/dL Normal 8.6-10.3 The [facility] Comment on above: Order Comment: No: D o not add to previous draw Performed By: #### 3 5200 #### [facility] [address] [place] [address], [facility] Chloride molar conc 95 mmol/L Low 98-107 The [facility] Comment on above: Order Comment: No: D o not add to previous draw Performed By: #### 3 5200 #### [facility] [address] [place] [address], [place] CO2 molar conc 36 mmol/L High 21-31 The [facility] Comment on above: Order Comment: No: D o not add to previous draw Performed By: #### 3 5200 #### [facility] [address] [place] [address], [facility] Creatinine mass conc 0.61 mg/dL Normal 0.60-1.20 The [facility] Comment on above: Order Comment: No: D o not add to previous draw Performed By: #### 3 5200 #### [facility] [address] [place] [address], [facility] GFR/1.73 sq M predicted among blacks MDRD vol rate/area (S/P/Bld) mL/min/{1.73_m2} Normal >60 The [facility] Comment on above: Order Comment: No: D o not add to previous draw Result Comment: Calc ulation may not be valid for patients over 70 years Performed By: #### 3 5200 #### [facility] [address] [place] [address], [facility] GFR/1.73 sq M predicted among non-blacks MDRD vol rate/area (S/P/Bld) mL/min/{1.73_m2} Normal >60 The [facility] Comment on above: Order Comment: No: D o not add to previous draw Result Comment: Calc ulation may not be valid for patients over 70 years Performed By: #### 3 5200 #### [facility] [address] [place] [address], [facility] Glucose mass conc 152 mg/dL High 70-100 The [facility] Comment on above: Order Comment: No: D o not add to previous draw Performed By: #### 3 5200 #### [facility] [address] [place] [address], [facility] Potassium molar conc 3.5 mmol/L Normal 3.5-5.1 The [facility] Comment on above: Order Comment: No: D o not add to previous draw Performed By: #### 3 5200 #### [facility] [address] [place] [address], [place] Sodium molar conc 137 mmol/L Normal 136-145 The [facility] Comment on above: Order Comment: No: D o not add to previous draw Performed By: #### 3 5200 #### [facility] [address] [place] [address], [facility] Urea nitrogen mass conc 17 mg/dL Normal 7-25 T he [facility] Comment on above: Order Comment: No: D o not add to previous draw Performed By: #### 3 5200 #### [facility] [address] [place] [address], [facility] CBC COMPLETE BLOOD COUNTon 0 2- Erythrocyte distribution width Ratio (RBC) 16.2 % High 11.5-15.0 The [facility] Comment on above: Order Comment: No: D o not add to previous draw Performed By: #### 3 5200 #### [facility] [address] [place] [address], [facility] Hematocrit Volume Fraction (Bld) 42.6 % Normal 36.0-45.0 The [facility] Comment on above: Order Comment: No: D o not add to previous draw Performed By: #### 3 5200 #### [facility] [address] [place] [address], [facility] Hemoglobin mass conc (Bld) 13.4 g/dL Normal 12.0-15.0 The [facility] Comment on above: Order Comment: No: D o not add to previous draw Performed By: #### 3 5200 #### [facility] [address] [place] [address], [facility] MCH Entitic mass (RBC) 29.4 pg Normal 27.0-33.0 Th e [facility] Comment on above: Order Comment: No: D o not add to previous draw Performed By: #### 3 5200 #### [facility] [address] [place] [address], [facility] MCHC mass conc (RBC) 31.5 g/dL Low 32.0-35.0 The [facility] Comment on above: Order Comment: No: D o not add to previous draw Performed By: #### 3 5200 #### [facility] [address] [place] [address], [facility] MCV Entitic volume (RBC) 93.4 fL Normal 82.0-98.0 The [facility] Comment on above: Order Comment: No: D o not add to previous draw Performed By: #### 3 5200 #### [facility] [address] [place] [address], [facility] Nucleated RBC/100 WBC Ratio (Bld) 0 % Normal 0-0 The [facility] Comment on above: Order Comment: No: D o not add to previous draw Performed By: #### 3 5200 #### [facility] [address] [place] [address], [facility] PLAT CNT 197 10*3/uL Normal 150-400 The [facility] Comment on above: Order Comment: No: D o not add to previous draw Performed By: #### 3 5200 #### [facility] [address] [place] [address], [facility] RBC #/vol (Bld) 4.56 10*6/uL Normal 3.80-5.00 The [facility] Comment on above: Order Comment: No: D o not add to previous draw Performed By: #### 3 5200 #### [facility] [address] [place] [address], [facility] WBC #/vol (Bld) 7.53 10*3/uL Normal 4.00-10.60 The [facility] Comment on above: Order Comment: No: D o not add to previous draw Performed By: #### 3 5200 #### [facility] [address] [place] [address], [facility] POC GLUCOSE LABon 03-22-2018 Glucose mass conc 187 mg/dL High 70-100 The [facility] Comment on above: Performed By: #### 3 5200 #### [facility] [address] [place] [address], [place] Glucose mass conc 161 mg/dL High 70-100 The [facility] Comment on above: Performed By: #### 3 5200 #### [facility] [address] [place] [address], [place] Glucose mass conc 226 mg/dL High 70-100 The [facility] Comment on above: Performed By: #### 3 5200 #### [facility] [address] [place] [address], [place] Glucose mass conc 175 mg/dL High 70-100 The [facility] Comment on above: Performed By: #### 3 5200 #### [facility] [address] [place] [address], [place] Glucose mass conc 148 mg/dL High 70-100 The [facility] Comment on above: Performed By: #### 3 5200 #### [facility] [address] [place] [address], [place] Glucose mass conc 191 mg/dL High 70-100 The [facility] Comment on above: Performed By: #### 5 6101, 09631 #### [facility] [address] [place] [address], [place] BASIC METABOLIC PANELon 03-08 Calcium mass conc 9.1 mg/dL Normal 8.6-10.3 The [facility] Comment on above: Order Comment: No: D o not add to previous draw Performed By: #### 5 610, 75[address] #### [facility] [address] [place] [address], [place] Chloride molar conc 95 mmol/L Low 98-107 The [facility] Comment on above: Order Comment: No: D o not add to previous draw Performed By: #### 5 6101, 57953 #### [facility] [address] [place] [address], [place] CO2 molar conc 36 mmol/L High 21-31 The [facility] Comment on above: Order Comment: No: D o not add to previous draw Performed By: #### 5 6101, 23503 #### [facility] [address] [place] [address], [place] Creatinine mass conc 0.68 mg/dL Normal 0.60-1.20 The [facility] Comment on above: Order Comment: No: D o not add to previous draw Performed By: #### 5 6101, 94225 #### [facility] [address] [place] [address], [place] GFR/1.73 sq M predicted among blacks MDRD vol rate/area (S/P/Bld) mL/min/{1.73_m2} Normal >60 The [facility] Comment on above: Order Comment: No: D o not add to previous draw Result Comment: Calc ulation may not be valid for patients over 70 years Performed By: #### 5 6101, 36738 #### [facility] [address] [place] [address], [place] GFR/1.73 sq M predicted among non-blacks MDRD vol rate/area (S/P/Bld) mL/min/{1.73_m2} Normal >60 The [facility] Comment on above: Order Comment: No: D o not add to previous draw Result Comment: Calc ulation may not be valid for patients over 70 years Performed By: #### 5 6101, 91466 #### [facility] [address] [place] [address], [place] Glucose mass conc 147 mg/dL High 70-100 The [facility] Comment on above: Order Comment: No: D o not add to previous draw Performed By: #### 5 6101, 34644 #### [facility] [address] [place] [address], [place] Potassium molar conc 3.6 mmol/L Normal 3.5-5.1 The [facility] Comment on above: Order Comment: No: D o not add to previous draw Performed By: #### 5 6101, 82797 #### [facility] [address] [place] [address], [place] Sodium molar conc 139 mmol/L Normal 136-145 The [facility] Comment on above: Order Comment: No: D o not add to previous draw Performed By: #### 5 610, 25488 #### [facility] [address] [place] [address], [place] Urea nitrogen mass conc 14 mg/dL Normal 7-25 T he [facility] Comment on above: Order Comment: No: D o not add to previous draw Performed By: #### 5 610, 05339 #### [facility] [address] [place] [address], [facility] CBC COMPLETE BLOOD COUNTon 0 - Erythrocyte distribution width Ratio (RBC) 16.2 % High 11.5-15.0 [facility] Comment on above: Order Comment: No: D o not add to previous draw Performed By: #### 5 610, 17647 #### [facility] [address] [place] [address], [facility] [facility] Hematocrit Volume Fraction (Bld) 42.0 % Normal 36.0-45.0 [facility] Comment on above: Order Comment: No: D o not add to previous draw Performed By: #### 5 610, 74163 #### [facility] [address] [place] [address], [facility] Hemoglobin mass conc (Bld) 13.5 g/dL Normal 12.0-15.0 [facility] Comment on above: Order Comment: No: D o not add to previous draw Performed By: #### 5 6100, 64342 #### [facility] [address] [place] [address], [facility] MCH Entitic mass (RBC) 30.0 pg Normal 27.0-33.0 Th e [facility] Comment on above: Order Comment: No: D o not add to previous draw Performed By: #### 5 610, 57484 #### [facility] [address] [place] [address], [facility] MCHC mass conc (RBC) 32.1 g/dL Normal 32.0-35.0 [facility] Comment on above: Order Comment: No: D o not add to previous draw Performed By: #### 5 610, 04273 #### [facility] [address] [place] [address], [place] MCV Entitic volume (RBC) 93.3 fL Normal 82.0-98.0 [facility] Comment on above: Order Comment: No: D o not add to previous draw Performed By: #### 5 610, 22804 #### [facility] [address] [place] [address], [facility] Nucleated RBC/100 WBC Ratio (Bld) 0 % Normal 0-0 [facility] Comment on above: Order Comment: No: D o not add to previous draw Performed By: #### 5 6100, 95787 #### [facility] [address] [place] [address], [facility] PLAT CNT 196 10*3/uL Normal 150-400 The [facility] Comment on above: Order Comment: No: D o not add to previous draw Performed By: #### 5 6100, 80337 #### [facility] [address] [place] [address], [facility] RBC #/vol (Bld) 4.50 10*6/uL Normal 3.80-5.00 The [facility] Comment on above: Order Comment: No: D o not add to previous draw Performed By: #### 5 6100, 62614 #### [facility] [address] [place] [address], [facility] WBC #/vol (Bld) 7.89 10*3/uL Normal 4.00-10.60 The [facility] Comment on above: Order Comment: No: D o not add to previous draw Performed By: #### 5 610, 99719 #### [facility] [address] [place] [address], [facility] POC GLUCOSE LABon 03-21-2018 Glucose mass conc 174 mg/dL High 70-100 The [facility] Comment on above: Performed By: #### 5 610, 06542 #### [facility] [address] [place] [address], [facility] Glucose mass conc 129 mg/dL High 70-100 The [facility] Comment on above: Performed By: #### 5 610, 20316 #### [facility] [address] [place] [address], [place] Glucose mass conc 280 mg/dL High 70-100 The [facility] Comment on above: Performed By: #### 5 610, 17634 #### [facility] [address] [place] [address], [place] BASIC METABOLIC PANELon 03-08 Calcium mass conc 9.2 mg/dL Normal 8.6-10.3 The [facility] Comment on above: Order Comment: No: D o not add to previous draw Performed By: #### 5 610, 44227 #### [facility] [address] [place] [address], [place] Chloride molar conc 96 mmol/L Low 98-107 [facility] Comment on above: Order Comment: No: D o not add to previous draw Performed By: #### 5 610, 11490 #### [facility] [address] [place] [address], [facility] CO2 molar conc 33 mmol/L High 21-31 The [facility] Comment on above: Order Comment: No: D o not add to previous draw Performed By: #### 5 610, 12880 #### [facility] [address] [place] [address], [place] Creatinine mass conc 0.69 mg/dL Normal 0.60-1.20 [facility] Comment on above: Order Comment: No: D o not add to previous draw Performed By: #### 5 610, 64760 #### [facility] [address] [place] [address], [place] GFR/1.73 sq M predicted among blacks MDRD vol rate/area (S/P/Bld) mL/min/{1.73_m2} Normal >60 The [facility] Comment on above: Order Comment: No: D o not add to previous draw Result Comment: Calc ulation may not be valid for patients over 70 years Performed By: #### 5 6101, 10332 #### [facility] [address] [place] [address], [facility] GFR/1.73 sq M predicted among non-blacks MDRD vol rate/area (S/P/Bld) mL/min/{1.73_m2} Normal >60 The [facility] Comment on above: Order Comment: No: D o not add to previous draw Result Comment: Calc ulation may not be valid for patients over 70 years Performed By: #### 5 6101, 11456 #### [facility] [address] [place] [address], [facility] Glucose mass conc 134 mg/dL High 70-100 The [facility] Comment on above: Order Comment: No: D o not add to previous draw Performed By: #### 5 610, 40965 #### [facility] [address] [place] [address], [place] Potassium molar conc 4.1 mmol/L Normal 3.5-5.1 [facility] Comment on above: Order Comment: No: D o not add to previous draw Performed By: #### 5 6101, 02023 #### [facility] [address] [place] [address], [place] Sodium molar conc 137 mmol/L Normal 136-145 The [facility] Comment on above: Order Comment: No: D o not add to previous draw Performed By: #### 5 6101, 05107 #### [facility] [address] [place] [address], [place] Urea nitrogen mass conc 13 mg/dL Normal 7-25 T [facility] Comment on above: Order Comment: No: D o not add to previous draw Performed By: #### 5 6101, 50740 #### [facility] [address] [place] [address], [place] MAGNESIUM BLOODon 03-20-2018 Magnesium mass conc 1.9 mg/dL Normal 1.9-2.7 [facility] Comment on above: Order Comment: No: D o not add to previous draw Performed By: #### 5 6101, 14183 #### [facility] [address] [place] [address], [facility] POC GLUCOSE LABon 03-20-2018 Glucose mass conc 109 mg/dL High 70-100 The [facility] Comment on above: Performed By: #### 5 610, 58381 #### [facility] [address] [place] [address], [facility] Glucose mass conc 194 mg/dL High 70-100 The [facility] Comment on above: Performed By: #### 5 610, 56191 #### [facility] [address] [place] [address], [facility] Glucose mass conc 119 mg/dL High 70-100 The [facility] Comment on above: Performed By: #### 5 610, 29866 #### [facility] [address] [place] [address], [facility] Glucose mass conc 203 mg/dL High 70-100 The [facility] Comment on above: Performed By: #### 5 6101, 02961 #### [facility] [address] [place] [address], [facility] APTTon 03-19-2018 aPTT Coag time (Bld) 32.1 s Normal 25.0-35.0 [facility] Comment on above: Order Comment: [...] THIS PURPOSE. Performed By: #### 5 6101, 89945 #### [facility] [address] [place] [address], [place] BASIC METABOLIC PANELon 03-08 Calcium mass conc 9.2 mg/dL Normal 8.6-10.3 [facility] Comment on above: Order Comment: No: D o not add to previous draw Performed By: #### 5 6101, 50006 #### [facility] [address] [place] [address], [place] Chloride molar conc 95 mmol/L Low 98-107 [facility] Comment on above: Order Comment: No: D o not add to previous draw Performed By: #### 5 6101, 94515 #### [facility] [address] [place] [address], [place] CO2 molar conc 34 mmol/L High 21-31 The [facility] Comment on above: Order Comment: No: D o not add to previous draw Performed By: #### 5 6101, 89644 #### [facility] [address] [place] [address], [place] Creatinine mass conc 0.55 mg/dL Low 0.60-1.20 [facility] Comment on above: Order Comment: No: D o not add to previous draw Performed By: #### 5 6101, 97964 #### [facility] [address] [place] [address], [place] GFR/1.73 sq M predicted among blacks MDRD vol rate/area (S/P/Bld) mL/min/{1.73_m2} Normal >60 [facility] Comment on above: Order Comment: No: D o not add to previous draw Result Comment: Calc ulation may not be valid for patients over 70 years Performed By: #### 5 6101, 94609 #### [facility] [address] [place] [address], [place] GFR/1.73 sq M predicted among non-blacks MDRD vol rate/area (S/P/Bld) mL/min/{1.73_m2} Normal >60 The [facility] Comment on above: Order Comment: No: D o not add to previous draw Result Comment: Calc ulation may not be valid for patients over 70 years Performed By: #### 5 6101, 89717 #### [facility] [address] [place] [address], [facility] Glucose mass conc 136 mg/dL High 70-100 The [facility] Comment on above: Order Comment: No: D o not add to previous draw Performed By: #### 5 610, 95840 #### [facility] [address] [place] [address], [facility] Potassium molar conc 3.4 mmol/L Low 3.5-5.1 [facility] Comment on above: Order Comment: No: D o not add to previous draw Performed By: #### 5 6101, 32411 #### [facility] [address] [place] [address], [facility] Sodium molar conc 137 mmol/L Normal 136-145 The [facility] Comment on above: Order Comment: No: D o not add to previous draw Performed By: #### 5 6101, 37820 #### [facility] [address] [place] [address], [facility] Urea nitrogen mass conc 11 mg/dL Normal 7-25 T he [facility] Comment on above: Order Comment: No: D o not add to previous draw Performed By: #### 5 6101, 17433 #### [facility] [address] [place] [address], [facility] CBC W/DIFFon 03-19-2018 ABS BASOPHILS 0.1 10*3/uL Normal 0.0-0.2 The [facility] Comment on above: Order Comment: No: D o not add to previous draw Performed By: #### 5 6101, 14295 #### [facility] [address] [place] ABS IMM GRANS 0.1 10*3/uL Normal 0.0-0.2 The [facility] Comment on above: Order Comment: No: D o not add to previous draw Performed By: #### 5 6100, 87564 #### [facility] [address] [place] [address], [facility] ABS NEUTROPHILS 6.1 10*3/uL Normal 1.6-7.6 The [facility] Comment on above: Order Comment: No: D o not add to previous draw Performed By: #### 5 6100, 70013 #### [facility] [address] [place] [address], [facility] Basophils #/vol (Bld) 0.8 % Normal 0.0-1.0 [facility] Comment on above: Order Comment: No: D o not add to previous draw Performed By: #### 5 6100, 41897 #### [facility] [address] [place] [address], [facility] Eosinophils #/vol (Bld) 0.2 10*3/uL Normal 0.0-0.5 [facility] Comment on above: Order Comment: No: D o not add to previous draw Performed By: #### 5 6100, 16910 #### [facility] [address] [place] [address], [facility] Eosinophils/100 WBC (Bld) 1.9 % Normal 0.0-6.0 [facility] Comment on above: Order Comment: No: D o not add to previous draw Performed By: #### 5 6100, 18400 #### [facility] [address] [place] [address], [facility] Erythrocyte distribution width Ratio (RBC) 16.4 % High 11.5-15.0 [facility] Comment on above: Order Comment: No: D o not add to previous draw Performed By: #### 5 6100, 01838 #### [facility] [address] Hematocrit Volume Fraction (Bld) 43.7 % Normal 36.0-45.0 [facility] Comment on above: Order Comment: No: D o not add to previous draw Performed By: #### 5 6100, 45861 #### [facility] [address] [place] [address], [facility] Hemoglobin mass conc (Bld) 14.0 g/dL Normal 12.0-15.0 [facility] Comment on above: Order Comment: No: D o not add to previous draw Performed By: #### 5 6100, 70433 #### [facility] [address] [place] [address], [facility] IMMATURE GRANS 0.7 % Normal 0.0-1.0 The [facility] Comment on above: Order Comment: No: D o not add to previous draw Performed By: #### 5 6100, 61049 #### [facility] [address] [place] [address], [facility] Lymphocytes #/vol (Bld) 1.7 10*3/uL Normal 1.2-4.0 [facility] Comment on above: Order Comment: No: D o not add to previous draw Performed By: #### 5 6100, 08595 #### [facility] [address] [place] [address], [facility] Lymphocytes/100 WBC (Bld) 19.1 % Low 20.0-45.0 The [facility] Comment on above: Order Comment: No: D o not add to previous draw Performed By: #### 5 6100, 26153 #### [facility] [address] [place] [address], [facility] MCH Entitic mass (RBC) 29.5 pg Normal 27.0-33.0 Th e [facility] Comment on above: Order Comment: No: D o not add to previous draw Performed By: #### 5 6100, 39517 #### [facility] [address] [place] [address], [facility] MCHC mass conc (RBC) 32.0 g/dL Normal 32.0-35.0 The [facility] Comment on above: Order Comment: No: D o not add to previous draw Performed By: #### 5 610, 32716 #### [facility] [address] [place] [id number], [facility] MCV Entitic volume (RBC) 92.0 fL Normal 82.0-98.0 The [facility] Comment on above: Order Comment: No: D o not add to previous draw Performed By: #### 5 6100, 95691 #### [facility] [address] [place] [address], [facility] Monocytes #/vol (Bld) 0.6 10*3/uL Normal 0.1-1.0 Th e [facility] Comment on above: Order Comment: No: D o not add to previous draw Performed By: #### 5 6100, 49490 #### [facility] [address] [place] [address], [facility] MONOS 7.0 % Normal 5.0-12.0 The [facility] Comment on above: Order Comment: No: D o not add to previous draw Performed By: #### 5 6100, 51014 #### [facility] [address] [place] [address], [facility] Neutrophils/100 WBC (Bld) 70.5 % Normal 40.0-72.0 The [facility] Comment on above: Order Comment: No: D o not add to previous draw Performed By: #### 5 610, 87702 #### [facility] [address] [place] [id number], [facility] Nucleated RBC/100 WBC Ratio (Bld) 0 % Normal 0-0 [facility] Comment on above: Order Comment: No: D o not add to previous draw Performed By: #### 5 610, 05334 #### [facility] PLAT CNT 200 10*3/uL Normal 150-400 The [facility] Comment on above: Order Comment: No: D o not add to previous draw Performed By: #### 5 6101, 37611 #### [address] RBC #/vol (Bld) 4.75 10*6/uL Normal 3.80-5.00 The [facility] Comment on above: Order Comment: No: D o not add to previous draw Performed By: #### 5 6101, 48081 #### [address] WBC #/vol (Bld) 8.62 10*3/uL Normal 4.00-10.60 The [facility] Comment on above: Order Comment: No: D o not add to previous draw Performed By: #### 5 6101, 39800 #### [address] CHEST AND LATERALon 03-19-19 19 CHEST AND LATERAL [facility] Department of Radiology [address] [place] [address] Patient Name: JACQUELYN KAPLAN : 1945 Sex: F Age: Race: White Pt. Location: [id number] Patient Status: I Ordered Date: 03/19/2018 12:15:00 [...] cardiomegaly. Electronically signed by:Shankar Nicolas. Transcribed by: [email or web address], User Resident: Electronically Signed by: SHANKAR NICOLAS @ 03/19/2018 08:20 AM Normal [facility] Comment on above: Order Comment: No: D o not add to previous draw COMP METABOLIC PANELon 03-19 Albumin mass conc 3.3 g/dL Low 3.5-5.7 [facility] Comment on above: Order Comment: No: D o not add to previous draw Performed By: #### 5 6101, 57062 #### [facility] [address] [facility] [place] [address], [facility] ALKALINE PHOSPH 58 IU/L Normal 34-104 The [facility] Comment on above: Order Comment: No: D o not add to previous draw Performed By: #### 5 6101, 69626 #### [facility] [address] [facility] [place] [place] [address], [facility] ALT enzyme act/vol 28 U/L Normal 7-52 [facility] Comment on above: Order Comment: No: D o not add to previous draw Performed By: #### 5 6101, 16068 #### [facility] [address] [place] [address], [place] AST enzyme act/vol 22 U/L Normal 13-39 The [facility] Comment on above: Order Comment: No: D o not add to previous draw Performed By: #### 5 610, 12410 #### [facility] [address] [place] [address], [place] Bilirubin mass conc 1.9 mg/dL High 0.3-1.0 [facility] Comment on above: Order Comment: No: D o not add to previous draw Performed By: #### 5 610, 72854 #### [facility] [address] [place] [address], [place] Calcium mass conc 9.0 mg/dL Normal 8.6-10.3 [facility] Comment on above: Order Comment: No: D o not add to previous draw Performed By: #### 5 610, 90214 #### [facility] [address] [place] [address], [place] Chloride molar conc 94 mmol/L Low 98-107 [facility] Comment on above: Order Comment: No: D o not add to previous draw Performed By: #### 5 610, 00737 #### [facility] [address] [place] [address], [place] CO2 molar conc 36 mmol/L High 21-31 The [facility] Comment on above: Order Comment: No: D o not add to previous draw Performed By: #### 5 610, 81143 #### [facility] [address] [place] [address], [place] Creatinine mass conc 0.61 mg/dL Normal 0.60-1.20 The [facility] Comment on above: Order Comment: No: D o not add to previous draw Performed By: #### 5 610, 50967 #### [facility] [address] [place] [address], [facility] GFR/1.73 sq M predicted among blacks MDRD vol rate/area (S/P/Bld) mL/min/{1.73_m2} Normal >60 [facility] Comment on above: Order Comment: No: D o not add to previous draw Result Comment: Calc ulation may not be valid for patients over 70 years Performed By: #### 5 6101, 69304 #### [facility] [address] [place] [address], [place] GFR/1.73 sq M predicted among non-blacks MDRD vol rate/area (S/P/Bld) mL/min/{1.73_m2} Normal >60 The [facility] Comment on above: Order Comment: No: D o not add to previous draw Result Comment: Calc ulation may not be valid for patients over 70 years Performed By: #### 5 6101, 65054 #### [facility] [address] [place] [address], [facility] Glucose mass conc 210 mg/dL High 70-100 The [facility] Comment on above: Order Comment: No: D o not add to previous draw Performed By: #### 5 6101, 31321 #### [facility] [address] [place] [address], [place] Potassium molar conc 3.3 mmol/L Low 3.5-5.1 The [facility] Comment on above: Order Comment: No: D o not add to previous draw Performed By: #### 5 6101, 44559 #### [facility] [address] [place] [address], [place] Protein mass conc 6.3 g/dL Normal 6.0-8.3 The [facility] Comment on above: Order Comment: No: D o not add to previous draw Performed By: #### 5 6101, 55369 #### [facility] [address] [place] [address], [place] Sodium molar conc 137 mmol/L Normal 136-145 The [facility] Comment on above: Order Comment: No: D o not add to previous draw Performed By: #### 5 6101, 56375 #### [facility] [address] [facility]. [address] Urea nitrogen mass conc 11 mg/dL Normal 7-25 T he [facility] Comment on above: Order Comment: No: D o not add to previous draw Performed By: #### 5 6101, 97062 #### [facility] [address] History and Physicalon 03-19 History and Physical MR#: [id number] [facility] Pt. 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 She was admitted to [facility] where she was found to [...] stenosis during her last hospitalization here at [facility] earlier this month. There was a discussion with Cardiology service about aortic valve replacement, whether to have TAVR versus open heart surgery and that decision has not been made yet. She was supposed to follow up with our Cardiology service next week. Transfer was initiated from [place] for further evaluation from our Cardiology service and also due to concern at [place] whether she needed urgent valve replacement done [...] heart rate 73, respiratory rate 23, blood [id number], pulse ox 99% 2L NC. EYES: Pupils [...] alert and oriented x3. LAB STUDIES: From [facility], March 18, 2018. CBC; WBC 7.4, hemoglobin 12.7, hematocrit 39.2, platelet count 174. BMP: Sodium 142, potassium 3.3, chloride 101, bicarb 34.7, BUN 12, creatinine 0.71, calcium 8.5, glucose 93. The patient had BNP of 16,271 on March 16, 2018, when she initially presented. It appears that cardiac enzymes are negative. Chest x-ray is reported to be showing pulmonary edema from [place], but no images were sent over with [...] John MD Date Trans: 03/19/2018 01:05 A/jerri [id number] Normal The [facility] MAGNESIUM BLOODon 03-19-2018 Magnesium mass conc 1.8 mg/dL Low 1.9-2.7 [facility] Comment on above: Order Comment: Yes: Add to Previous draw if able Performed By: #### 3 2400, 09693, 60274, 35637 #### [facility] [address] [place] [address], [place] POC GLUCOSE LABon 03-19-2018 Glucose mass conc 260 mg/dL High 70-100 The [facility] Comment on above: Performed By: #### 5 2841, 43591 #### [facility] [address] [place] [address], [place] Glucose mass conc 200 mg/dL High 70-100 [facility] Comment on above: Performed By: #### 5 6101, 23613 #### [facility] [address] [place] [address], [facility] Glucose mass conc 130 mg/dL High 70-100 [facility] Comment on above: Performed By: #### 3 5200, 38272, 70651, 31339 #### [facility] [address] [place] [address], [facility] Glucose mass conc 112 mg/dL High 70-100 [facility] [facility] Comment on above: Performed By: #### 3 5200, 57329, 08614, 98395 #### [facility] [address] [facility]. [address] PROTHROMBIN TIMEon 9 INR Coag RelTime (PPP) 1.19 {INR} High 0.91-1.16 Th e [facility] Comment on above: Order Comment: [...] CHEST 1995;[id number]. Performed By: #### 5 6101, 25019 #### [facility] [address] Prothrombin time (PT) Coag time (PPP) 15.1 s High 12.3-14.8 The [facility] Comment on above: Order Comment: No: D o not add to previous draw Result Comment: ALL RESULTS MUST BE INTERPRETED WITH RESPECT TO BLOOD DRAWING ARTIFACT OR DILUTION ERROR OF ANTICOAGULANT AT THE TIME OF SAMPLING. Performed By: #### 5 6101, 86180 #### [facility] [address] APTTon 03-13-2018 aPTT Coag time (Bld) 52.4 s High 25.0-35.0 The [facility] Comment on above: Order Comment: [...] OF HEPARIN. Performed By: #### 3 5200, 54907, 68221, 34372 #### [facility] [address] aPTT Coag time (Bld) 56.9 s High 25.0-35.0 The [facility] Comment on above: Order Comment: [...] OF HEPARIN. Performed By: #### 3 5200, 75436, 11864, 99329 #### [facility] [address] [place] [address], [facility] aPTT Coag time (Bld) 53.6 s High 25.0-35.0 The [facility] Comment on above: Order Comment: [...] OF HEPARIN. Performed By: #### 3 5200, 59987, 65941, 37422 #### [facility] [address] [place] [address], [facility] POC GLUCOSE LABon 03-13-2018 Glucose mass conc 140 mg/dL High 70-100 The [facility] Comment on above: Performed By: #### 3 5200, 71560, 16937, 03463 #### [facility] [address] [place] [address], [facility] Glucose mass conc 189 mg/dL High 70-100 The [facility] Comment on above: Performed By: #### 3 5200, 50220, 12788, 02615 #### [facility] [address] [place] [address], [facility] Glucose mass conc 156 mg/dL High 70-100 The [facility] Comment on above: Performed By: #### 3 5200, 15789, 91808, 49936 #### [facility] [address] [place] [address], [facility] UFH HEPARIN ASSAYon 03-13-19 19 UNFRACTIONATED HEPARIN 0.14 IU/mL Critically low 0.30-0.70 The [facility] Comment on above: Order Comment: Yes: Add to Previous draw if able Result Comment: [place] roxaban and Apixaban will interfere with the anti Xa assay used to monitor UFH and LMWH. Results called. Accurately read back by PEGGY ISAACS Performed By: #### 3 5200, 61007, 53075, 44126 #### [facility] [address] [place] [address], [facility] UNFRACTIONATED HEPARIN 0.18 IU/mL Low 0.30-0.70 Th e [facility] Comment on above: Order Comment: Yes: Add to Previous draw if able Result Comment: [place] roxaban and Apixaban will interfere with the anti Xa assay used to monitor UFH and LMWH. Performed By: #### 3 5200, 66263, 11270, 23565 #### [facility] [address] [place] [address], [facility] UNFRACTIONATED HEPARIN 0.18 IU/mL Low 0.30-0.70 Th e [facility] Comment on above: Result Comment: [place] roxaban and Apixaban will interfere with the anti Xa assay used to monitor UFH and LMWH. ADDED PER PROTOCOL. Performed By: #### 3 5200, 46890, 16004, 79165 #### [facility] [address] [place] [address], [facility] APTTon 03-12-2018 aPTT Coag time (Bld) 49.2 s High 25.0-35.0 The [facility] Comment on above: Order Comment: [...] THIS PURPOSE. Performed By: #### 3 5200, 36470, 37466, 37740 #### [facility] [address] [place] [address], [facility] aPTT Coag time (Bld) 59.2 s High 25.0-35.0 The [facility] Comment on above: Order Comment: [...] OF HEPARIN. Performed By: #### 3 5200, 38985, 39933, 14723 #### [facility] [address] [place] [address], [facility] aPTT Coag time (Bld) 43.7 s High 25.0-35.0 The [facility] Comment on above: Order Comment: [...] THIS PURPOSE. Performed By: #### 3 5200, 57016, 27584, 78014 #### [facility] [address] BASIC METABOLIC PANELon 02-0 Calcium mass conc 8.9 mg/dL Normal 8.6-10.3 The [facility] Comment on above: Order Comment: Yes: Add to Previous draw if able Performed By: #### 3 5200, 04713, 02376, 36324 #### [facility] [address] [place] [address], [facility] Chloride molar conc 100 mmol/L Normal 98-107 The [facility] Comment on above: Order Comment: Yes: Add to Previous draw if able Performed By: #### 3 5200, 08551, 25311, 45334 #### [facility] [address] [place] [address], [facility] CO2 molar conc 28 mmol/L Normal 21-31 The [facility] Comment on above: Order Comment: Yes: Add to Previous draw if able Performed By: #### 3 5200, 13322, 64112, 99284 #### [facility] [address] [place] [address], [place] Creatinine mass conc 0.50 mg/dL Low 0.60-1.20 The [facility] Comment on above: Order Comment: Yes: Add to Previous draw if able Performed By: #### 3 5200, 90189, 47605, 94719 #### [facility] [address] [place] [address], [place] GFR/1.73 sq M predicted among blacks MDRD vol rate/area (S/P/Bld) mL/min/{1.73_m2} Normal >60 The [facility] Comment on above: Order Comment: Yes: Add to Previous draw if able Result Comment: Calc ulation may not be valid for patients over 70 years Performed By: #### 3 5200, 37173, 89984, 25088 #### [facility] [address] [place] [address], [place] GFR/1.73 sq M predicted among non-blacks MDRD vol rate/area (S/P/Bld) mL/min/{1.73_m2} Normal >60 The [facility] Comment on above: Order Comment: Yes: Add to Previous draw if able Result Comment: Calc ulation may not be valid for patients over 70 years Performed By: #### 3 5200, 96498, 84104, 89274 #### [facility] [address] [place] [address], [place] Glucose mass conc 132 mg/dL High 70-100 The [facility] Comment on above: Order Comment: Yes: Add to Previous draw if able Performed By: #### 3 5200, 01736, 04151, 74862 #### [facility] [address] [place] [address], [place] Potassium molar conc 3.6 mmol/L Normal 3.5-5.1 The [facility] Comment on above: Order Comment: Yes: Add to Previous draw if able Performed By: #### 3 5200, 49270, 78959, 66691 #### [facility] [address] [place] [address], [facility] Sodium molar conc 137 mmol/L Normal 136-145 The [facility] Comment on above: Order Comment: Yes: Add to Previous draw if able Performed By: #### 3 5200, 73443, 91954, 59976 #### [facility] [address] [place] [address], [facility] Urea nitrogen mass conc 10 mg/dL Normal 7-25 T he [facility] Comment on above: Order Comment: Yes: Add to Previous draw if able Performed By: #### 3 5200, 85160, 26938, 05341 #### [facility] [address] [place] [address], [facility] CBC COMPLETE BLOOD COUNTon 0 - Erythrocyte distribution width Ratio (RBC) 16.1 % High 11.5-15.0 [facility] Comment on above: Order Comment: Yes: Add to Previous draw if able Performed By: #### 3 5200, 78083, 52432, 22168 #### [facility] [address] [place] [address], [facility] Hematocrit Volume Fraction (Bld) 39.3 % Normal 36.0-45.0 The [facility] Comment on above: Order Comment: Yes: Add to Previous draw if able Performed By: #### 3 5200, 56154, 95464, 28587 #### [facility] [address] [place] [address], [place] Hemoglobin mass conc (Bld) 12.4 g/dL Normal 12.0-15.0 The [facility] Comment on above: Order Comment: Yes: Add to Previous draw if able Performed By: #### 3 5200, 24561, 20739, 44250 #### [facility] [address] [place] [address], [place] MCH Entitic mass (RBC) 29.7 pg Normal 27.0-33.0 Th e [facility] Comment on above: Order Comment: Yes: Add to Previous draw if able Performed By: #### 3 5200, 84181, 08229, 22251 #### [facility] [address] MCHC mass conc (RBC) 31.6 g/dL Low 32.0-35.0 [facility] Comment on above: Order Comment: Yes: Add to Previous draw if able Performed By: #### 3 5200, 41945, 12014, 48700 #### [facility] [address] MCV Entitic volume (RBC) 94.0 fL Normal 82.0-98.0 [facility] Comment on above: Order Comment: Yes: Add to Previous draw if able Performed By: #### 3 5200, 66755, 08255, 47624 #### [facility] [address] Nucleated RBC/100 WBC Ratio (Bld) 0 % Normal 0-0 The [facility] Comment on above: Order Comment: Yes: Add to Previous draw if able Performed By: #### 3 5200, 99857, 30736, 20502 #### [facility] [address] [place] [address], [facility] PLAT CNT 185 10*3/uL Normal 150-400 The [facility] Comment on above: Order Comment: Yes: Add to Previous draw if able Performed By: #### 3 5200, 71759, 98303, 46564 #### [facility] [address] [place] [address], [facility] RBC #/vol (Bld) 4.18 10*6/uL Normal 3.80-5.00 The [facility] Comment on above: Order Comment: Yes: Add to Previous draw if able Performed By: #### 3 5200, 77911, 54375, 81105 #### [facility] [address] [place] [address], [facility] WBC #/vol (Bld) 6.85 10*3/uL Normal 4.00-10.60 The [facility] Comment on above: Order Comment: Yes: Add to Previous draw if able Performed By: #### 3 5200, 52693, 64869, 22032 #### [facility] [address] [place] [address], [facility] POC GLUCOSE LABon 03-12-2018 Glucose mass conc 135 mg/dL High 70-100 The [facility] Comment on above: Performed By: #### 3 5200, 29210, 76101, 39385 #### [facility] [address] [place] [address], [facility] Glucose mass conc 188 mg/dL High 70-100 The [facility] Comment on above: Performed By: #### 3 5200, 10974, 14092, 95081 #### [facility] [address] [place] [address], [facility] Glucose mass conc 130 mg/dL High 70-100 The [facility] Comment on above: Performed By: #### 3 5200, 53269, 88444, 75803 #### [facility] [address] [place] [address], [facility] Glucose mass conc 139 mg/dL High 70-100 The [facility] Comment on above: Performed By: #### 3 5200, 51911, 14208, 63092 #### [facility] [address] [place] [address], [facility] UFH HEPARIN ASSAYon 03-12-19 19 UNFRACTIONATED HEPARIN 0.30 IU/mL Normal 0.30-0.70 Th e [facility] Comment on above: Order Comment: Yes: Add to Previous draw if able Result Comment: [place] roxaban and Apixaban will interfere with the anti Xa assay used to monitor UFH and LMWH. Performed By: #### 3 5200, 49983, 59286, 18431 #### [facility] [address] [place] [address], [facility] APTTon 03-11-2018 aPTT Coag time (Bld) 88.3 s Critically high 25.0-35.0 [facility] Comment on above: Order Comment: Yes: [...] OF HEPARIN. Performed By: #### 3 5200, 18371, 82896, 75492 #### [facility] [address] aPTT Coag time (Bld) 50.4 s High 25.0-35.0 [facility] Comment on above: Order Comment: No: [...] THIS PURPOSE. Performed By: #### 3 5200, 41775, 03175, 33832 #### [facility] [address] BASIC METABOLIC PANELon Calcium mass conc 8.9 mg/dL Normal 8.6-10.3 [facility] Comment on above: Order Comment: No: D o not add to previous draw Performed By: #### 3 5200, 82912, 62486, 22389 #### [facility] [address] [place] [address], [place] Chloride molar conc 101 mmol/L Normal 98-107 [facility] Comment on above: Order Comment: No: D o not add to previous draw Performed By: #### 3 5200, 29219, 48004, 57039 #### [facility] [address] [place] [address], [place] CO2 molar conc 29 mmol/L Normal 21-31 The [facility] Comment on above: Order Comment: No: D o not add to previous draw Performed By: #### 3 5200, 44751, 44660, 48117 #### [facility] [address] [place] [address], [place] Creatinine mass conc 0.55 mg/dL Low 0.60-1.20 [facility] Comment on above: Order Comment: No: D o not add to previous draw Performed By: #### 3 5200, 15685, 73683, 16861 #### [facility] [address] [place] [address], [place] GFR/1.73 sq M predicted among blacks MDRD vol rate/area (S/P/Bld) mL/min/{1.73_m2} Normal >60 The [facility] Comment on above: Order Comment: No: D o not add to previous draw Result Comment: Calc ulation may not be valid for patients over 70 years Performed By: #### 3 5200, 35930, 15227, 50006 #### [facility] [address] [place] [address], [place] GFR/1.73 sq M predicted among non-blacks MDRD vol rate/area (S/P/Bld) mL/min/{1.73_m2} Normal >60 The [facility] Comment on above: Order Comment: No: D o not add to previous draw Result Comment: Calc ulation may not be valid for patients over 70 years Performed By: #### 3 5200, 84322, 38643, 03219 #### [facility] [address] [place] [address], [facility] Glucose mass conc 152 mg/dL High 70-100 The [facility] Comment on above: Order Comment: No: D o not add to previous draw Performed By: #### 3 5200, 68259, 81306, 06920 #### [facility] [address] [place] [address], [facility] Potassium molar conc 3.7 mmol/L Normal 3.5-5.1 The [facility] Comment on above: Order Comment: No: D o not add to previous draw Performed By: #### 3 5200, 08967, 66413, 37588 #### [facility] [address] [place] [address], [facility] Sodium molar conc 138 mmol/L Normal 136-145 The [facility] Comment on above: Order Comment: No: D o not add to previous draw Performed By: #### 3 5200, 86206, 23099, 91599 #### [facility] [address] [facility] [address], [facility] Urea nitrogen mass conc 12 mg/dL Normal 7-25 T he [facility] Comment on above: Order Comment: No: D o not add to previous draw Performed By: #### 3 5200, 42006, 66766, 43319 #### [facility] [address] [facility] [place] [place] [address], [facility] CBC W/DIFFon 03-11-2018 ABS BASOPHILS 0.1 10*3/uL Normal 0.0-0.2 The [facility] Comment on above: Order Comment: No: D o not add to previous draw Performed By: #### 3 5200, 97662, 63031, 15757 #### [facility] [address] [place] [address], [facility] ABS IMM GRANS 0.0 10*3/uL Normal 0.0-0.2 The [facility] Comment on above: Order Comment: No: D o not add to previous draw Performed By: #### 3 5200, 12208, 32949, 43363 #### [facility] [address] [place] [address], [facility] ABS NEUTROPHILS 4.7 10*3/uL Normal 1.6-7.6 The [facility] Comment on above: Order Comment: No: D o not add to previous draw Performed By: #### 3 5200, 19371, 82014, 54083 #### [facility] [address] [place] [address], [facility] Basophils #/vol (Bld) 0.9 % Normal 0.0-1.0 The [facility] Comment on above: Order Comment: No: D o not add to previous draw Performed By: #### 3 5200, 19644, 00640, 38520 #### [facility] [address] [place] [address], [facility] Eosinophils #/vol (Bld) 0.2 10*3/uL Normal 0.0-0.5 The [facility] Comment on above: Order Comment: No: D o not add to previous draw Performed By: #### 3 5200, 67953, 50338, 29269 #### [facility] [address] [place] [address], [facility] Eosinophils/100 WBC (Bld) 2.4 % Normal 0.0-6.0 The [facility] Comment on above: Order Comment: No: D o not add to previous draw Performed By: #### 3 5200, 71608, 14731, 20115 #### [facility] [address] [place] [address], [facility] Erythrocyte distribution width Ratio (RBC) 16.1 % High 11.5-15.0 The [facility] Comment on above: Order Comment: No: D o not add to previous draw Performed By: #### 3 5200, 53910, 79222, 28438 #### [facility] [address] Hematocrit Volume Fraction (Bld) 38.7 % Normal 36.0-45.0 The [facility] Comment on above: Order Comment: No: D o not add to previous draw Performed By: #### 3 5200, 96707, 01005, 04164 #### [facility] [address] [place] [address], [facility] Hemoglobin mass conc (Bld) 12.5 g/dL Normal 12.0-15.0 The [facility] Comment on above: Order Comment: No: D o not add to previous draw Performed By: #### 3 5200, 45680, 58483, 33164 #### [facility] [address] [place] [address], [facility] IMMATURE GRANS 0.6 % Normal 0.0-1.0 [facility] Comment on above: Order Comment: No: D o not add to previous draw Performed By: #### 3 5200, 64368, 61343, 58741 #### [facility] [address] [place] [address], [facility] Lymphocytes #/vol (Bld) 1.3 10*3/uL Normal 1.2-4.0 The [facility] Comment on above: Order Comment: No: D o not add to previous draw Performed By: #### 3 5200, 94225, 11261, 38588 #### [facility] [address] [place] [address], [facility] Lymphocytes/100 WBC (Bld) 18.6 % Low 20.0-45.0 The [facility] Comment on above: Order Comment: No: D o not add to previous draw Performed By: #### 3 5200, 98163, 50437, 33859 #### [facility] [address] [place] [address], [facility] MCH Entitic mass (RBC) 29.9 pg Normal 27.0-33.0 Th e [facility] Comment on above: Order Comment: No: D o not add to previous draw Performed By: #### 3 5200, 54601, 05290, 85023 #### [facility] [address] [place] [address], [facility] MCHC mass conc (RBC) 32.3 g/dL Normal 32.0-35.0 The [facility] Comment on above: Order Comment: No: D o not add to previous draw Performed By: #### 3 5200, 97171, 70353, 00692 #### [facility] [address] [place] [address], [facility] MCV Entitic volume (RBC) 92.6 fL Normal 82.0-98.0 The [facility] Comment on above: Order Comment: No: D o not add to previous draw Performed By: #### 3 5200, 08162, 26288, 04233 #### [facility] [address] [place] [address], [facility] Monocytes #/vol (Bld) 0.5 10*3/uL Normal 0.1-1.0 Th e [facility] Comment on above: Order Comment: No: D o not add to previous draw Performed By: #### 3 5200, 94805, 75627, 71780 #### [facility] [address] [place] [address], [facility] MONOS 7.0 % Normal 5.0-12.0 The [facility] Comment on above: Order Comment: No: D o not add to previous draw Performed By: #### 3 5200, 34532, 07590, 99715 #### [facility] [address] [place] [address], [facility] Neutrophils/100 WBC (Bld) 70.5 % Normal 40.0-72.0 The [facility] Comment on above: Order Comment: No: D o not add to previous draw Performed By: #### 3 5200, 81987, 29655, 20920 #### [facility] [address] Nucleated RBC/100 WBC Ratio (Bld) 0 % Normal 0-0 The [facility] Comment on above: Order Comment: No: D o not add to previous draw Performed By: #### 3 5200, 63039, 55644, 26447 #### [facility] [address] [place] [address], [facility] PLAT CNT 189 10*3/uL Normal 150-400 The [facility] Comment on above: Order Comment: No: D o not add to previous draw Performed By: #### 3 5200, 40139, 14522, 30169 #### [facility] [address] [place] [address], [facility] RBC #/vol (Bld) 4.18 10*6/uL Normal 3.80-5.00 The [facility] Comment on above: Order Comment: No: D o not add to previous draw Performed By: #### 3 5200, 83832, 79823, 82700 #### [facility] [address] [place] [address], [facility] WBC #/vol (Bld) 6.71 10*3/uL Normal 4.00-10.60 The [facility] Comment on above: Order Comment: No: D o not add to previous draw Performed By: #### 3 5200, 00321, 00315, 59071 #### [facility] [address] [place] [address], [facility] POC GLUCOSE LABon 03-11-2018 Glucose mass conc 128 mg/dL High 70-100 The [facility] Comment on above: Performed By: #### 3 5200, 40100, 27789, 93590 #### [facility] [address] [place] [address], [facility] Glucose mass conc 100 mg/dL Normal 70-100 The [facility] Comment on above: Performed By: #### 3 5200, 34098, 23563, 70554 #### [facility] [address] [facility]. [address] Glucose mass conc 158 mg/dL High 70-100 The [facility] Comment on above: Performed By: #### 3 5200, 08896, 42018, 81978 #### [facility] [address] UFH HEPARIN ASSAYon 03-11-19 19 UNFRACTIONATED HEPARIN 0.35 IU/mL Normal 0.30-0.70 Th e [facility] Comment on above: Order Comment: [...] OF HEPARIN. Performed By: #### 3 5200, 79272, 53826, 65528 #### [facility] [address] [facility]. [address] UNFRACTIONATED HEPARIN 0.28 IU/mL Low 0.30-0.70 Th e [facility] Comment on above: Result Comment: [place] roxaban and Apixaban will interfere with the anti Xa assay used to monitor UFH and LMWH. Performed By: #### 3 5200, 00509, 88212, 93904 #### [facility] [address] [facility]. [address] APTTon 03-10-2018 aPTT Coag time (Bld) 53.0 s High 25.0-35.0 [facility] Comment on above: Order Comment: No: [...] OF HEPARIN. Performed By: #### 3 5200, 71109, 03217, 92201 #### [facility] [address] [place] [address], [facility] aPTT Coag time (Bld) 47.7 s High 25.0-35.0 [facility] Comment on above: Order Comment: No: [...] THIS PURPOSE. Performed By: #### 3 5200, 66578, 17886, 80743 #### [facility] [address] [place] [address], [facility] aPTT Coag time (Bld) 68.2 s High 25.0-35.0 The [facility] Comment on above: Order Comment: [...] THIS PURPOSE. Performed By: #### 3 5200, 36668, 03847, 78304 #### [facility] [address] [place] [address], [facility] BASIC METABOLIC PANELon 02-0 Calcium mass conc 8.7 mg/dL Normal 8.6-10.3 The [facility] Comment on above: Order Comment: No: D o not add to previous draw Performed By: #### 3 5200, 54702, 18989, 35687 #### [facility] [address] [place] [address], [facility] Chloride molar conc 100 mmol/L Normal 98-107 The [facility] Comment on above: Order Comment: No: D o not add to previous draw Performed By: #### 3 5200, 98882, 00051, 85470 #### [facility] [address] [place] [address], [facility] CO2 molar conc 28 mmol/L Normal 21-31 The [facility] Comment on above: Order Comment: No: D o not add to previous draw Performed By: #### 3 5200, 71954, 46427, 53564 #### [facility] [address] [place] [address], [facility] Creatinine mass conc 0.57 mg/dL Low 0.60-1.20 The [facility] Comment on above: Order Comment: No: D o not add to previous draw Performed By: #### 3 5200, 18804, 33134, 99927 #### [facility] [address] [place] [address], [facility] GFR/1.73 sq M predicted among blacks MDRD vol rate/area (S/P/Bld) mL/min/{1.73_m2} Normal >60 The [facility] Comment on above: Order Comment: No: D o not add to previous draw Result Comment: Calc ulation may not be valid for patients over 70 years Performed By: #### 3 5200, 57037, 04516, 24559 #### [facility] [address] [place] [address], [facility] GFR/1.73 sq M predicted among non-blacks MDRD vol rate/area (S/P/Bld) mL/min/{1.73_m2} Normal >60 The [facility] Comment on above: Order Comment: No: D o not add to previous draw Result Comment: Calc ulation may not be valid for patients over 70 years Performed By: #### 3 5200, 24816, 58763, 46986 #### [facility] [address] [place] [address], [place] Glucose mass conc 141 mg/dL High 70-100 The [facility] Comment on above: Order Comment: No: D o not add to previous draw Performed By: #### 3 5200, 32721, 96278, 10942 #### [facility] [address] [place] [id number], [facility] Potassium molar conc 4.0 mmol/L Normal 3.5-5.1 The [facility] Comment on above: Order Comment: No: D o not add to previous draw Performed By: #### 3 5200, 70985, 35072, 69596 #### [facility] [address] [place] [address], [facility] Sodium molar conc 136 mmol/L Normal 136-145 The [facility] Comment on above: Order Comment: No: D o not add to previous draw Performed By: #### 3 5200, 58095, 54798, 89929 #### [facility] [address] [place] [address], [facility] Urea nitrogen mass conc 12 mg/dL Normal 7-25 T he [facility] Comment on above: Order Comment: No: D o not add to previous draw Performed By: #### 3 5200, 90251, 53708, 47837 #### [facility] [address] [place] [id number], [facility] CBC COMPLETE BLOOD COUNTon 0 - Erythrocyte distribution width Ratio (RBC) 16.1 % High 11.5-15.0 The [facility] Comment on above: Order Comment: No: D o not add to previous draw Performed By: #### 3 5200, 58419, 42064, 01913 #### [facility] [address] [place] [address], [facility] Hematocrit Volume Fraction (Bld) 39.4 % Normal 36.0-45.0 The [facility] Comment on above: Order Comment: No: D o not add to previous draw Performed By: #### 3 5200, 79144, 34940, 13385 #### [facility] [address] Hemoglobin mass conc (Bld) 12.9 g/dL Normal 12.0-15.0 The [facility] Comment on above: Order Comment: No: D o not add to previous draw Performed By: #### 3 5200, 33119, 20250, 70248 #### [facility] [address] [place] [address], [facility] MCH Entitic mass (RBC) 30.0 pg Normal 27.0-33.0 Th e [facility] Comment on above: Order Comment: No: D o not add to previous draw Performed By: #### 3 5200, 96677, 14750, 32230 #### [facility] [address] [facility] [address] MCHC mass conc (RBC) 32.7 g/dL Normal 32.0-35.0 The [facility] Comment on above: Order Comment: No: D o not add to previous draw Performed By: #### 3 5200, 77549, 78800, 45857 #### [facility] [address] [place] [address], [facility] MCV Entitic volume (RBC) 91.6 fL Normal 82.0-98.0 [facility] Comment on above: Order Comment: No: D o not add to previous draw Performed By: #### 3 5200, 78030, 36748, 62777 #### [facility] [address] [facility] [place] [address], [facility] Nucleated RBC/100 WBC Ratio (Bld) 0 % Normal 0-0 The [facility] Comment on above: Order Comment: No: D o not add to previous draw Performed By: #### 3 5200, 46347, 35901, 48084 #### [facility] [address] [place] [address], [facility] PLAT CNT 200 10*3/uL Normal 150-400 The [facility] Comment on above: Order Comment: No: D o not add to previous draw Performed By: #### 3 5200, 92928, 60980, 45010 #### [facility] [address] [place] [address], [facility] RBC #/vol (Bld) 4.30 10*6/uL Normal 3.80-5.00 The [facility] Comment on above: Order Comment: No: D o not add to previous draw Performed By: #### 3 5200, 68418, 27712, 25800 #### [facility] [address] [place] [address], [facility] WBC #/vol (Bld) 7.21 10*3/uL Normal 4.00-10.60 The [facility] Comment on above: Order Comment: No: D o not add to previous draw Performed By: #### 3 5200, 43342, 47200, 00948 #### [facility] [address] [facility] [address] UFH HEPARIN ASSAYon 03-10-19 19 UNFRACTIONATED HEPARIN 0.33 IU/mL Normal 0.30-0.70 Th e [facility] Comment on above: Result Comment: Kathy roxaban and Apixaban will interfere with the anti Xa assay used to monitor UFH and LMWH. UFH ADDED PER PROTOCOL Performed By: #### 3 5200, 05895, 71214, 19775 #### [facility] [address] UNFRACTIONATED HEPARIN 0.89 IU/mL High 0.30-0.70 Th e [facility] Comment on above: Order Comment: No: D o not add to previous draw Result Comment: Kathy roxaban and Apixaban will interfere with the anti Xa assay used to monitor UFH and LMWH. Performed By: #### 3 5200, 94304, 15513, 81672 #### [facility] [address] APTTon 03-09-2018 aPTT Coag time (Bld) 67.5 s High 25.0-35.0 The [facility] Comment on above: Order Comment: [...] HEPARIN. Performed By: #### 8 5123 #### [facility] [address] [place] [address], [facility] aPTT Coag time (Bld) 58.4 s High 25.0-35.0 The [facility] Comment on above: Order Comment: [...] PURPOSE. Performed By: #### 8 5123 #### [facility] [address] [place] [address], [facility] aPTT Coag time (Bld) 89.8 s Critically high 25.0-35.0 The [facility] Comment on above: Order Comment: [...] 14:02 Performed By: #### 8 5123 #### [facility] [address] [place] [address], [place] aPTT Coag time (Bld) 80.2 s Critically high 25.0-35.0 The [facility] Comment on above: Order Comment: [...] PURPOSE. Performed By: #### 8 5123 #### [facility] [address] aPTT Coag time (Bld) 47.3 s High 25.0-35.0 The [facility] Comment on above: Order Comment: [...] THIS PURPOSE. Performed By: #### 5 6101, 42585 #### [facility] [address] [facility]. [address] BNP (B-TYPE NATRIURETIC PEPT ISSA)on 03-09-2018 Natriuretic peptide B mass conc (Bld) 596 pg/mL High 0-100 The [facility] Comment on above: Order Comment: Yes: Add to Previous draw if able Result Comment: Give n the appropriate clinical setting a BNP result of >100 pg/mL indicates congestive heart failure. Performed By: #### 8 5123 #### [facility] [address] [facility]. [address] CBC COMPLETE BLOOD COUNTon 0 03-09-2018 Erythrocyte distribution width Ratio (RBC) 16.1 % High 11.5-15.0 The [facility] Comment on above: Order Comment: Yes: Add to Previous draw if able Performed By: #### 8 5123 #### [facility] [address] Hematocrit Volume Fraction (Bld) 42.2 % Normal 36.0-45.0 The [facility] Comment on above: Order Comment: Yes: Add to Previous draw if able Performed By: #### 8 5123 #### [facility] [address] [place] [id number], [facility] Hemoglobin mass conc (Bld) 13.7 g/dL Normal 12.0-15.0 The [facility] Comment on above: Order Comment: Yes: Add to Previous draw if able Performed By: #### 8 5123 #### [facility] [address] [place] [address], [facility] MCH Entitic mass (RBC) 30.0 pg Normal 27.0-33.0 Th e [facility] Comment on above: Order Comment: Yes: Add to Previous draw if able Performed By: #### 8 5123 #### [facility] [address] MCHC mass conc (RBC) 32.5 g/dL Normal 32.0-35.0 The [facility] Comment on above: Order Comment: Yes: Add to Previous draw if able Performed By: #### 8 5123 #### [facility] [address] MCV Entitic volume (RBC) 92.5 fL Normal 82.0-98.0 The [facility] Comment on above: Order Comment: Yes: Add to Previous draw if able Performed By: #### 8 5123 #### [facility] [address] Nucleated RBC/100 WBC Ratio (Bld) 0 % Normal 0-0 The [facility] Comment on above: Order Comment: Yes: Add to Previous draw if able Performed By: #### 8 5123 #### [facility] [address] [place] [address], [facility] PLAT CNT 208 10*3/uL Normal 150-400 The [facility] Comment on above: Order Comment: Yes: Add to Previous draw if able Performed By: #### 8 5123 #### [facility] [address] [place] [address], [facility] RBC #/vol (Bld) 4.56 10*6/uL Normal 3.80-5.00 The [facility] Comment on above: Order Comment: Yes: Add to Previous draw if able Performed By: #### 8 5123 #### [facility] [address] [place] [address], [facility] WBC #/vol (Bld) 9.26 10*3/uL Normal 4.00-10.60 The [facility] Comment on above: Order Comment: Yes: Add to Previous draw if able Performed By: #### 8 5123 #### [facility] [address] [place] [address], [facility] Erythrocyte distribution width Ratio (RBC) 15.9 % High 11.5-15.0 [facility] Comment on above: Order Comment: Yes: Add to Previous draw if able Performed By: #### 5 0608 #### [facility] [address] [place] [address], [facility] Hematocrit Volume Fraction (Bld) 38.2 % Normal 36.0-45.0 [facility] Comment on above: Order Comment: Yes: Add to Previous draw if able Performed By: #### 5 0608 #### [facility] [address] [place] [address], [facility] Hemoglobin mass conc (Bld) 12.4 g/dL Normal 12.0-15.0 The [facility] Comment on above: Order Comment: Yes: Add to Previous draw if able Performed By: #### 5 0608 #### [facility] [address] [place] [id number], [facility] MCH Entitic mass (RBC) 29.5 pg Normal 27.0-33.0 Th e [facility] Comment on above: Order Comment: Yes: Add to Previous draw if able Performed By: #### 5 0608 #### [facility] [address] MCHC mass conc (RBC) 32.5 g/dL Normal 32.0-35.0 The [facility] Comment on above: Order Comment: Yes: Add to Previous draw if able Performed By: #### 5 0608 #### [facility] [address] MCV Entitic volume (RBC) 91.0 fL Normal 82.0-98.0 The [facility] Comment on above: Order Comment: Yes: Add to Previous draw if able Performed By: #### 5 0608 #### [facility] [address] [facility] [address] Nucleated RBC/100 WBC Ratio (Bld) 0 % Normal 0-0 The [facility] Comment on above: Order Comment: Yes: Add to Previous draw if able Performed By: #### 5 0608 #### [facility] [address] [facility] [address] PLAT CNT 193 10*3/uL Normal 150-400 The [facility] Comment on above: Order Comment: Yes: Add to Previous draw if able Performed By: #### 5 0608 #### [facility] [address] RBC #/vol (Bld) 4.20 10*6/uL Normal 3.80-5.00 The [facility] Comment on above: Order Comment: Yes: Add to Previous draw if able Performed By: #### 5 0608 #### [facility] [address] [place] [address], [facility] WBC #/vol (Bld) 8.57 10*3/uL Normal 4.00-10.60 The [facility] Comment on above: Order Comment: Yes: Add to Previous draw if able Performed By: #### 5 0608 #### [facility] [address] [place] [address], [facility] ELECTROLYTE PANELon 03-09-19 19 Chloride molar conc 98 mmol/L Normal 98-107 [facility] Comment on above: Order Comment: Yes: Add to Previous draw if able Performed By: #### 3 5200, 19824, 28882, 16687 #### [facility] [address] [place] [address], [facility] CO2 molar conc 26 mmol/L Normal 21-31 The [facility] Comment on above: Order Comment: Yes: Add to Previous draw if able Performed By: #### 3 5200, 29048, 64526, 01580 #### [facility] [address] [place] [address], [facility] Potassium molar conc 4.0 mmol/L Normal 3.5-5.1 The [facility] Comment on above: Order Comment: Yes: Add to Previous draw if able Performed By: #### 3 5200, 29486, 53455, 20984 #### [facility] [address] [place] [address], [facility] Sodium molar conc 135 mmol/L Low 136-145 The [facility] Comment on above: Order Comment: Yes: Add to Previous draw if able Performed By: #### 3 5200, 80227, 63005, 06527 #### [facility] [address] [place] [address], [facility] MAGNESIUM BLOODon 03-09-2018 Magnesium mass conc 1.2 mg/dL Low 1.9-2.7 [facility] Comment on above: Order Comment: Yes: Add to Previous draw if able Performed By: #### 3 5200, 57663, 25506, 89523 #### [facility] [address] [place] [address], [facility] PORTABLE CHEST 1 VIEWon PORTABLE CHEST 1 VIEW [facility] Department of Radiology [address] [place] [id number] Patient Name: JACQUELYN KAPLAN : 1945 Sex: F Age: Race: White Pt. Location: [id number] Patient Status: I Ordered Date: 03/09/2018 2:15:00 [...] findings. Electronically signed by:Peña Díaz. Transcribed by: [email or web address], User Resident: BETH MILTON Electronically Signed by: PEÑA DÍAZ @ 03/09/2018 01:31 PM I personally read this/these film(s) with this resident Normal The [facility] Comment on above: Order Comment: Yes: Add to Previous draw if able PROTHROMBIN TIMEon INR Coag RelTime (PPP) 1.78 {INR} High 0.91-1.16 Th e [facility] Comment on above: Result Comment: ACCC P [...] 1995;108:231S-246S. Performed By: #### 8 5123 #### [facility] [address] [employer] [address] Prothrombin time (PT) Coag time (PPP) 20.8 s High 12.3-14.8 The [facility] Comment on above: Result Comment: ALL RESULTS MUST BE INTERPRETED WITH RESPECT TO BLOOD DRAWING ARTIFACT OR DILUTION ERROR OF ANTICOAGULANT AT THE TIME OF SAMPLING. Performed By: #### 8 5123 #### [facility] [address] [place] [address], [facility] INR Coag RelTime (PPP) 2.82 {INR} High 0.91-1.16 Th e [facility] Comment on above: Order Comment: [...] CHEST 1995;108:231S-246S. Performed By: #### 5 6101, 69574 #### [facility] [address] Prothrombin time (PT) Coag time (PPP) 29.9 s High 12.3-14.8 The [facility] Comment on above: Order Comment: No: D o not add to previous draw Result Comment: ALL RESULTS MUST BE INTERPRETED WITH RESPECT TO BLOOD DRAWING ARTIFACT OR DILUTION ERROR OF ANTICOAGULANT AT THE TIME OF SAMPLING. Performed By: #### 5 6101, 45633 #### [facility] [address] TROPONIN-Ion 03-09-2018 Troponin I.cardiac mass conc 0.01 ng/mL Normal 0.00-0.04 The [facility] Comment on above: Order Comment: No: D o not add to previous draw Result Comment: REFE RENCE RANGES: 0.00 - 0.04 ng/ml NORMAL 0.05 - 0.50 ng/ml INDETERMINATE > 0.50 ng/ml CONSISTENT WITH AN M.I. Performed By: #### 3 5200 #### [facility] [address] [place] [address], [facility] Troponin I.cardiac mass conc 0.01 ng/mL Normal 0.00-0.04 [facility] Comment on above: Order Comment: No: D o not add to previous draw Result Comment: REFE RENCE RANGES: 0.00 - 0.04 ng/ml NORMAL 0.05 - 0.50 ng/ml INDETERMINATE > 0.50 ng/ml CONSISTENT WITH AN M.I. Performed By: #### 3 5200 #### [facility] [address] [place] [address], [facility] Troponin I.cardiac mass conc 0.01 ng/mL Normal 0.00-0.04 [facility] Comment on above: Order Comment: No: D o not add to previous draw Result Comment: REFE RENCE RANGES: 0.00 - 0.04 ng/ml NORMAL 0.05 - 0.50 ng/ml INDETERMINATE > 0.50 ng/ml CONSISTENT WITH AN M.I. Performed By: #### 3 5200, 32407, 01721, 97914 #### [facility] [address] TSH3on 03-09-2018 TSH 3RD GENERATION 3.21 uIU/mL Normal 0.34-5.60 [facility] Comment on above: Order Comment: Yes: Add to Previous draw if able Performed By: #### 3 5200, 06551, 64908, 07961 #### [facility] [address] [facility] [address] UFH HEPARIN ASSAYon 03-09-19 19 UNFRACTIONATED HEPARIN >1.00 Critically high 0.30-0.7 0 The [facility] Comment on above: Result Comment: Kathy roxaban and Apixaban will interfere with the anti Xa assay used to monitor UFH and LMWH. Performed By: #### 8 5123 #### [facility] [address] [place] [address], [facility] UNFRACTIONATED HEPARIN >1.00 Critically high 0.30-0.7 0 The [facility] Comment on above: Order Comment: Yes: Add to Previous draw if able Result Comment: Kathy roxaban and Apixaban will interfere with the anti Xa assay used to monitor UFH and LMWH. UFH = 2.28. UFH MAY BE ELEVATED IN THE PRESENCE OF OTHER ANTI-XA INHIBITORS. Performed By: #### 8 5123 #### [facility] [address] UNFRACTIONATED HEPARIN >1.00 Critically high 0.30-0.7 0 The [facility] Comment on above: Result Comment: Kathy roxaban [...] 2.62 Performed By: #### 8 5123 #### [facility] [address] Vital Signs Date Time Vital Sign Value Performing Clinician Leigh weiss 10-27-2022 12:14-0400 Diastolic blood pressure 53 mm[Hg] MD Gumaro Ordonez Work Phone: [facility] 10-27-2022 12:14-0400 Heart rate 73 /min MD Gumaro Ordonez Work Phone: [facility] 10-27-2022 12:14-0400 Respiratory rate 18 /min MD Gumaro Ordonez Work Phone: [facility] 10-27-2022 12:14-0400 SaO2% (BldA) [Mass fraction] 95 % MD Gumaro Ordonez Work Phone: [facility] 10-27-2022 12:14-0400 Systolic blood pressure 128 mm[Hg] MD Gumaro Ordonez Work Phone: [facility] 10-27-2022 10:54-0400 Body height 160.02 cm MD Gumaro Ordonez Work Phone: [facility] 10-27-2022 10:540404 Body weight 122.46 kg MD Gumaro Ordonez Work Phone: [facility] Encounters Encounter Date Encounter Type Care Provider Facility Start: 01-12-2023 End: 01-12-2023 ambulatory [facility] Start: 12-04-2022 End: 12-04-2022 ambulatory Joe Cosme Facility:[facility] Start: 12-04-2022 End: 12-04-2022 ambulatory MD Gumaro Ordonez Work Phone: [facility] Work Phone: Start: 12-04-2022 End: 12-04-2022 Patient encounter procedure MD Gumaro Ordonez Work Phone: [facility] Work Phone: Start: 11-14-2022 End: 11-14-2022 ambulatory [facility] Start: 10-27-2022 End: 10-27-2022 ambulatory Joe Cosme Facility:[facility] Start: 10-27-2022 End: 10-27-2022 Admission to same day surgery center MD Gumaro Ordonez Work Phone: [facility] Work Phone: Start: 10-18-2022 End: 10-18-2022 ambulatory [facility] Start: 10-12-2022 ambulatory Mikey NIELSON Facility:[facility] Start: 10-11-2022 End: 10-15-2022 ambulatory Mikey NIELSON Facility:[id number] Start: 09-22-2022 End: 09-22-2022 ambulatory [facility] Start: 07-17-2022 End: 07-17-2022 ambulatory DEN SILVERMANVIPIN [facility] Start: 05-01-2022 End: 05-02-[address] GUMARO ORDONEZ Facility:[facility] Start: 03-22-2022 End: 03-23-[address] GUMARO ORDONEZ Facility:[facility] Start: 10-31-2021 End: 11-01-[address] GUMARO ORDONEZ Facility:[facility] Start: 09-28-2021 End: 09-29-2021 ambulatory ROSA Wadsworth ERASMOLEO Facility: Start: 03-18-2018 End: 03-24-2018 Evaluation and management of inpatient PHAM GABRIEL Facility:[facility] Start: 03-09-2018 End: 03-13-2018 Evaluation and management of inpatient STEPHANIE CARBALLO Facility:[facility] Procedures Date Procedure Procedure Detail Performing Clinician Start: 12-04-2022 Capsule endoscopy MD Gumaro Ordonez Work Phone: Start: 10-27-2022 Esophagogastroduodenoscopy MD Gumaro Jiang Work Phone: Start: 03-12-2018 [facility], Single MOSHRIK ABD ALAMIR [...] Date Care Activity Detail Author Start: 12-04-2022 [facility] Start: 10-27-2022 [facility] Patient Education Colon polyps H emorrhoids (DC) Diverticulosis (DC) Hiatal Hernia (DC) [facility] Work Phone: Payers Date Payer Category Payer Self-pay 1958 Medicare [id number] 1958 Unknown [id number] 1945 Unknown [id number] 2.16.8 [id number] 1945 Unknown [id number] 2.16.8 [id number] 1945 Unknown [id number] 2.16.84 [id number] 1945 Unknown [id number] 2.16.84 [id number] 1945 Unknown [id number] 2.16.84 [id number] 1945 Unknown [id number] 2.16.84 [id number] 1945 Unknown [id number] 2.16.8 [id number] Unknown Carmen BC/TIMO [id number] Unknown [id number] 2.16.8 [id number] Unknown [id number] 2.16.8 [id number] Social History Date Type Detail Facility [facility] Start: 1945 Sex Assigned At Female F [facility] Goals Date Patient Goal Desired Activity /State Clinical Notes 09-29-2021 to 01-12-2023 Note Date & Type Note Facility 01-12-2023 Note [facility] Subjective Jacquelyn Kaplan is a [...] 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 Burnett and they agreed that left [...] Rfl: coenzyme Q-10 (more content not included)... [facility] 11-29-2022 Note I called and spoke t o patient. Explained the LAAO procedure, pre/post-procedure imaging, post-procedure medications, risks and benefits. She would like to proceed with the procedure. She is pending a video capsule study. Please schedule her for an appt with Dr. Carr for further discussion. [facility] 11-14-2022 Note [facility] CARDIOLOGY PROGR ESS NOTE [...] and she p (more content not included)... [facility] 11-14-2022 Note Patient here for 4 w [place] follow up GI visit. She underwent upper and lower sc[place] [facility] Per patient, Dr. Cosme cleared her to resume Xarelto, but she has not done so yet. She wanted to discuss with Dr. Burnett first. Still denies chest pain, SOB, palpitations, and bleeding. Patient expressed interest in the Watchman/Amulet device. Review of Systems Musculoskeletal: Positive for muscle weakness. All other systems reviewed and are negative. [facility] 10-18-2022 Note [facility] CARDIOLOGY PROGR ESS NOTE [...] daily weights, I (more content not included)... [facility] 10-18-2022 Note Patient here for fol low up [facility] discharge for GI bleed. She takes Xarelto for afib, but this was stopped, along with aspirin. Chest tightness and SOB has resolved and she's feeling much better. Doing more walking throughout her house. Denies lightheadedness and falls. Review of Systems Musculoskeletal: Positive for muscle weakness. All other systems reviewed and are negative. [facility] 10-11-2022 Note i [facility] 09-22-2022 Note [place] [facility] Subjective Jacquelyn Kaplan is a [...] 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 This was using a 23 mm [place] [...] , Rfl: Recent (more content not included)... [facility] 07-17-2022 Note [facility] CARDIOLOGY PROGR ESS NOTE [...] provided. Patient verbal (more content not included)... [facility] 07-17-2022 Note Patient here for 6 m o follow up PAF, aortic valve disorder, CHF, carotid artery stenosis, and hypertension. She had echo in Feb [address] [facility]. Denies chest pain, SOB, palpitations, and bleeding on Eliquis. Had routine labs in April 2022. Review of Systems Respiratory: Positive for cough. Musculoskeletal: Positive for arthritis, back pain, joint pain, muscle weakness and myalgias. Neurological: Positive for loss of balance. All other systems reviewed and are negative. [facility] 03-22-2022 Note PROCEDURE: XR ANKLE LT MIN [...] authenticated by: FABRICIO BANKS Date: 2022-03-22 10:42 [facility] 09-29-2021 Note PROCEDURE: XR ANKLE LT [...] authenticated by: GENE BERMUDEZ Date: 2021-09-29 10:11 [facility] Evaluation note No assessment information [facility] Work Phone: Summary Purpose Family History No Family History Records Found Relationship Condition Age at Onset Recorded Date/T oliver Not Specified Malignant neoplasm of pancreas Unknown father Malignant neoplasm of kidney Unknown Malignant neoplasm of liver Unknown Advance Directives No Advanced Directives Records Found Advance Directive Response Recorded Date/ Time Advance Directives No October 10:12am Hospital Course Note MR#: [id number] I [facility] Pt. Name: Jacquelyn Kaplan Admitted: 03/09/2018 [...] (more content not included)... Note MR#: [id number] [facility] Pt. Name: Jacquelyn Kaplan Admitted: [...] was no chest pain. She went to [facility], was found to have elevated [...] section and content) DATE CREATED AUTHOR 03/26/2018 [facility] DATE CREATED AUTHOR AUTHOR'S ORGANIZ ATION 05/10/2022 [facility] DATE CREATED AUTHOR AUTHOR'S ORGANIZ ATION 11/08/2022 [facility] DATE CREATED AUTHOR AUTHOR'S ORGANIZ ATION 01/15/2023 [facility] DATE CREATED AUTHOR AUTHOR'S ORGANIZ ATION 01/17/2023 [facility] Care Teams (unrecognized sec tion and content) [...] BE BASED ON THE PRIMARY CLINICAL RECORDS. [employer] provides no warranty or guarantee of the accuracy or completeness of information in this document.
[2023-02-12 11:22] LABS: Basophils Absolute Auto 0.1 10^3/uL (0.0-0.1); Basophils Percent Auto 0.7 % (0.2-2.0); Eosinophils Absolute Auto 0.1 10^3/uL (0.0-0.7); Eosinophils Percent Auto 1.7 % (0.9-7.0); Hematocrit 34.2 % (36.0-48.0); Hemoglobin 10.4 g/dL (12.0-16.0); Immature Granulocytes Abs Auto 0.03 10^3/uL (0.00-0.03); Immature Granulocytes Pct Auto 0.4 % (0.0-0.5); Lymphocytes Absolute Auto 1.5 10^3/uL (1.2-3.8); Lymphocytes Percent Auto 17.1 % (20.5-60.0); Mean Corpuscular HGB Conc 30.4 g/dL (29.9-35.2); Mean Corpuscular Hemoglobin 23.9 pg (26.7-34.0); Mean Corpuscular Volume 78.4 fL (81.0-99.0); Mean Platelet Volume 9.8 fL (9.5-13.5); Monocytes Absolute Auto 0.6 10^3/uL (0.3-0.8); Monocytes Percent Auto 6.6 % (1.7-12.0); Neutrophils Absolute Auto 6.2 10^3/uL (1.4-6.5); Neutrophils Percent Auto 73.5 % (43.0-75.0); Platelet Count 226 10^3/uL (150-450); Red Blood Count 4.36 10^6/uL (4.20-5.40); Red Cell Distribution Width 17.4 % (11.0-15.0); White Blood Count 8.5 10^3/uL (4.0-11.0)
[2023-02-12 11:30] LABS: Erythrocyte Sedimentation Rate 91 mm/hr (<=30)
[2023-02-12 13:35] LABS: Anion Gap 11.7; Calcium 9.9 mg/dL (8.5-10.1); Carbon Dioxide 28.9 mmol/L (21.0-32.0); Chloride 93 mmol/L (98-107); Estimated GFR (African America 27 (>=60); Estimated GFR (Non-African Ame 22 (>=60); Glucose 255 mg/dL (74-106); Potassium 4.6 mmol/L (3.5-5.1); Sodium 129 mmol/L (136-145)
[2023-02-12 14:00] LABS: C Reactive Protein <0.50 mg/dL (<=0.50)
== END 2023-02-12 10:33 | disposition home or self-care (01) ==
LOC: LAB 10:35
PROVIDERS: PCP Family Medicine; Visit Provider Physician Assistant
DX: T81.41XA Infection following a procedure, superficial incisional surgical site, initial encounter (principal); E11.21 Type 2 diabetes mellitus with diabetic nephropathy
CPT/HCPCS: 36415; 80048; 85025; 85652; 86140

== ENCOUNTER 2023-02-19 09:45 | Outpatient (OUT) | payer MEDICARE, SELFPAY ==
--- OUTSIDE RECORDS SUMMARY | 2023-02-19 09:59 | XMS_ITS | CCD ---
Author Name Unknown Address [address] [place] [address] Organization [facility] Care Team Providers Care Roll On Worker Name Role Phone STEPHANIE CARBALLO Referring Unavailable SELF, REFERRED Primary Care Unavailable RAGHAVENDRA PERRY Admitting Unavailable PHAM SIMMONS Attending Unavailable NE Procedure Practitioner Unavailab OMEGA Ramirez Surgeon Unavailable NE Procedure Practitioner Unavailab NATA Tinoco ABD Surgeon [...] NADERER, DR GUMARO Fernandes Primary Care Unavailable CHILDS, DR FABRICIO Novak Consulting Unavailable HIGHLANDER, ROSA Wadsworth Admitting Unavailable HIGHLANDER, ROSA Wadsworth Attending Unavailable HIGHLANDER, PETER D Consulting Unavailable Mikey NIELSON Attending Unavailable MD Joe Cosme Attending Provider MD Gumaro Ordonez Primary Care Provider [phone] DEN BURNETT Attending Unavailable JOLENE CARR Attending [...] [SULFA (SULFONAMIDE ANTIBIOTICS)] Drug allergy (disorder) 07-11-2013 [facility] Repository (1 source) Sulfonamides (Antibiotic) Drug allergy (disorder) 10-27-2022 [facility] Repository Medications Current Medications Medication Drug Class(es) [...] disease (1 source) Atherosclerotic heart disease of citizen [place] coronary artery without angina pectoris; Translations: [ATHSCL HEART DISEASE OF [place] CORONARY ARTERY W/O ANG PCTRS] Onset: 9 [...] 9 Chronic Other aftercare (1 source) Other moth exterminator (current) drug therapy; Translations: [OTH RECREATION OFFICER CURRENT DRUG THERAPY] Onset: 3 Episodic Other aftercare (1 source) intermediate (current) use of anticoagulants; Translations: [intermediate (current) use of anticoagulants] Onset: 3 Episodic [...] Range Facility Office Visiton 01-12-2023 Follow-up visit [id number] Jacquelyn Kaplan 1945 F Date Provider Department Center 01/12/2023 JOLENE LOPEZ EDEN [facility] Family History Problem Relation Age of Onset Aortic stenosis Father Other Father Family Status - Relation Status Age at Father Level of Service:97959 NE OFFICE/OUTPATIENT ESTABLISHED HIGH MDM 40-54 MIN Normal [facility] Office Visiton 11-14-2022 Follow-up visit [id number] Jacquelyn Kaplan 1945 F Date Provider Department Center 11/14/2022 LauraDEN FABIAN EDEN [facility] Family History Problem Relation Age of Onset Aortic stenosis Father Other Father Family Status - Relation Status Age at Father Level of Service:88223 NE OFFICE/OUTPATIENT ESTABLISHED LOW MDM 20-29 MIN Normal [facility] Glucose Glucometer (BldC) [M ass/Vol]Ordered By: Joe Cosme on 10-27-2022 Glucose [Mass/Vol] 220 mg/dL [facility] Comment on above: Random Glucose Refer ence Range is dependent on time and content of last meal. Glucose of more than 200 mg/dL in a nonstressed, ambulatory subject supports the diagnosis of Diabetes Mellitus. Glucose Poct Glucometerson 0 10-27-2022 Commemt1 Glu2: Cleaned Meter Normal [facility] Comment on above: Result Comment: PERF ORMED BY: [facility] [address] [place] [address] PATHOLOGIST NUCLEAR TEST TECHNICIAN NORMA MONTANA M.D. Performed By: #### G LULS #### Point of Care testing , Glucose [Mass/Vol] 220 mg/dL Normal [facility] Comment on above: Result Comment: Forest Glucose Reference Range is dependent on time and content of last meal. Glucose of more than 200 mg/dL in a nonstressed, ambulatory subject supports the diagnosis of Diabetes Mellitus. Performed By: #### G MELODIE #### Point of Care testing , Ryan 10-27-2022 L Specimen: [id number] Received: 10/27/22 Status: TRAVIS Casas Num: [id number] Spec Type: Surgical Subm Dr: Joe Cosme MD Tissues: A Colon Biopsy (ASCND COL) Procedures: HE/Mike Schmidt/Awa L4 Age/ Patient Sex Location Account Attending Physician Jacquelyn Kaplan 77/F [id number] Joe Cosme MD SPEC NUM: [id number] RECD: 10/27/22 STATUS: TRAVIS AMADOR NUM: [id number] DELMY: 10/27/22 DR: Joe Cosme MD ENTERED: 10/27/[address] [facility] [address]: SPEC TYPE: Surgical DEPT: S ENTERED BY: [id number] RECV BY: [id number] ORDERED: HE/2, Gross/Micro L4 ORDERED: HE/2, Gross/Micro [...] microscopic examination confirms the diagnosis. CPT Codes 24264 Specimen: [id number] Received: 10/27/22 Status: TRAVIS Rereagan Num: [id number] Spec Type: Surgical Subm Dr: Joe Cosme MD Tissues: A Colon Biopsy (ASCND COL) Procedures: HE/2, Gross/Micro L4 Patient: Jacquelyn Kaplan [id number] (Continued) Signed (signatur e on file) Akshat-Ariel Dominguez MD 10/30/22 1331 [facility] No Panel InformationOrdered By: Joe Cosme on 10-27-2022 Bedside Glucose Comment Glu2: cleaned meter [facility] Office Visiton 10-18-2022 Follow-up visit [id number] Jacquelyn Kaplan 1945 F Date Provider Department Center 10/18/2022 3848-DEN BURNETT [facility] Family History Problem Relation Age of Onset Aortic stenosis Father Other Father Family Status - Relation Status Age at Father Level of Service:72569 NE OFFICE/OUTPATIENT ESTABLISHED MOD MDM 30-39 MIN Normal [facility] Outside Colonoscopyon 2022 Outside Colonoscopy [id number] B#1.00CD:127 Normal [facility] Lab Reportson 10-16-2022 Lab Reports [id number] 6A#1.00CD:127 Normal [facility] Lab Reports [id number] D5#1.00CD:127 Normal [facility] Lab Reports [id number] 6#1.00CD:127 Normal [facility] Lab Reports [id number] 5#1.00CD:127 [facility] Outside Colonoscopyon 2022 Outside Colonoscopy [id number] 2#1.00CD:127 [facility] Consultation Noteon 10-13-19 Consultation Note [id number] 7F#1.00CD:127 [facility] Consultation Note [id number] 7#1.00CD:127 [facility] Lab Reportson 10-12-2022 Lab Reports [id number] 1#1.00CD:127 [facility] Office Visiton 09-22-2022 Follow-up visit [id number] Jacquelyn Kaplan 1945 F Date Provider Department Center 09/22/2022 367-JOLENE CARR EDEN [facility] Family History Problem Relation Age of Onset Aortic stenosis Father Other Father Family Status - Relation Status Age at Father Level of Service:74716 NE OFFICE/OUTPATIENT ESTABLISHED MOD MDM 30-39 MIN Reason for Visit and Comments: Follow-up [141522] - Patient is here today per Dr burnett request Valve Disorder [3372] [facility] 36on 08-14-2022 36 Pt called in requesting a refill [facility] Office Visiton 07-17-2022 Follow-up visit [id number] Che 1945 F Date Provider Department Center 07/17/2022 3848-DEN BURNETT EDEN [facility] Family History Problem Relation Age of Onset Aortic stenosis Father Other Father Family Status - Relation Status Age at Father Level of Service:86220 NE OFFICE/OUTPATIENT ESTABLISHED LOW MDM 20-29 MIN Normal [facility] CBC AUTO DIFFon 05-01-2022 BASO # 0.1 103/ul Normal 0.0-0.1 [facility] Comment on above: Performed By: #### C BC ####[facility] [address] [place] [address]Dr. Sugey Dominguez Basophils/100 WBC (Bld) 0.8 % Normal 0.2-2.0 [facility] Comment on above: Performed By: #### C BC ####[facility] [address] [place] [address]Dr. Sugey Dominguez EO # 0.2 103/ul Normal 0.0-0.7 [facility] Comment on above: Performed By: #### C BC ####[facility] [address] [place] [address]Dr. Sugey Dominguez Eosinophils/100 WBC (Bld) 3.5 % Normal 0.9-7.0 [facility] Comment on above: Performed By: #### C BC ####[facility] [address] [place] [address]Dr. Sugey Dominguez Erythrocyte distribution width (RBC) [Ratio] 13.6 % Normal 11.0-15.0 [facility] Comment on above: Performed By: #### C BC ####[facility] [address] [place] [address]Dr. Sugey Dominguez Hematocrit (Bld) [Volume fraction] 40.7 % Normal 36.0-48.0 [facility] Comment on above: Performed By: #### C BC ####[facility] [address] [place] [address]Dr. Sugey Dominguez Hemoglobin (Bld) [Mass/Vol] 13.5 g/dL Normal 12.0-16.0 [facility] Comment on above: Performed By: #### C BC ####[facility] [address] [place] [address]Dr. Sugey Dominguez IG # 0.03 10e3/ul Normal 0.00-0.03 [facility] Comment on above: Performed By: #### C BC ####[facility] [address] [place] [address]Dr. Sugey Dominguez IG % 0.5 % Normal 0.0-0.5 [facility] Comment on above: Performed By: #### C BC ####[facility] [address] [place] [address]Dr. Sugey Dominguez LYMPH # 1.5 103/ul Normal 1.2-3.8 [facility] Comment on above: Performed By: #### C BC ####[facility] [address] [place] [address]DrDarci Dominguez Lymphocytes/100 WBC (Bld) 23.1 % Normal 20.5-60.0 [facility] Comment on above: Performed By: #### C BC ####[facility] [address] [place], [place] [address]DrDarci Dominguez MANUAL DIFF REQ NO Normal [facility] Comment on above: Performed By: #### C BC ####[facility] [address] [place] [id number]. Sugey Dominguez MCH (RBC) [Entitic mass] 30.8 pg Normal 26.7-34.0 [facility] Comment on above: Performed By: #### C BC ####[facility] [address] [place] [id number]. Sugey Dominguez MCHC (RBC) [Mass/Vol] 33.2 g/dL Normal 29.9-35.2 [facility] Comment on above: Performed By: #### C BC ####[facility] [address] [place] [id number] Dominguez MCV (RBC) [Entitic vol] 92.7 fL Normal 81.0-99.0 [facility] Comment on above: Performed By: #### C BC ####[facility] [address] [place] [address]DrDarci Dominguez MONO # 0.4 103/ul Normal 0.3-0.8 [facility] Comment on above: Performed By: #### C BC ####[facility] [address] [place] [id number]. Sugey Dominguez Monocytes/100 WBC (Bld) 6.8 % Normal 1.7-12.0 [facility] Comment on above: Performed By: #### C BC ####[facility] [address] [place] [id number]. Sugey Dominguez NEUT # 4.2 103/ul Normal 1.4-6.5 [facility] Comment on above: Performed By: #### C BC ####[facility] [address] [place] [id number]. Sugey Dominguez Neutrophils/100 WBC (Bld) 65.3 % Normal 43.0-75.0 [facility] Comment on above: Performed By: #### C BC ####[facility] [address] [place] [id number]. Sugey Dominguez Platelet mean volume (Bld) [Entitic vol] 10.1 fL Normal 9.5-13.5 [facility] Comment on above: Performed By: #### C BC ####[facility] [address] [place] [id number]. Sugey Dominguez PLT 166 103/ul Normal 150-450 [facility] Comment on above: Performed By: #### C BC ####[facility] [address] [place] [id number]. Sugey Dominguez RBC 4.39 106/ul Normal 4.20-5.40 [facility] Comment on above: Performed By: #### C BC ####[facility] [address] [place] [id number]. Sugey Dominguez WBC 6.4 103/ul Normal 4.0-11.0 [facility] Comment on above: Performed By: #### C BC ####[facility] [address] [place] [id number]. Sugey Dominguez FREE T3on 05-01-2022 FREE T3 1.80 pg/mlL Critically low 2.18-3.[address] [facility] Comment on above: Performed By: #### L IPID, FT3, TSH, LIVER, BMP #### [facility] [address] [place] [address] [address] Sugey Dominguez FREE T4on 05-01-2022 Free T4 [Mass/Vol] 1.40 ng/dL Normal 0.76-1.46 [facility] Comment on above: Performed By: #### F T4 #### [facility] [address] [place] [address] Dr. Sugey Dominguez GLYCOHEMOGLOBIN A1Con 2022 ADA RECOMMENDATION SEE BELOW Normal [facility] Comment on above: Result Comment: ADA RECOMMENDED LIMIT 4.0 - 6.0 ADA THERAPEUTIC TARGET < 7.0 ACTION SUGGESTED > 7.0 Performed By: #### A 1C #### [facility] [address] [place] [address] Dr. Sugey Dominguez Glucose [Mass/Vol] 174 mg/dL Normal [facility] Comment on above: Performed By: #### A 1C #### [facility] [address] [place] [address] Dr. Sugey Dominguez HbA1c (Bld) [Mass fraction] 7.7 % Critically high 4.5-6.2 [facility] Comment on above: Performed By: #### A 1C #### [facility] [address] [place] [address] Dr. Sugey Dominguez LIPID PROFILEon 05-01-2022 CHOL-HDL RATIO NORM SEE BELOW Normal [facility] Comment on above: Result Comment: 3.3 - 4.4 LOW RISK 4.4 - 7.1 AVERAGE RISK 7.1 - 11.0 MODERATE RISK >11.0 HIGH RISK Performed By: #### L IPID, FT3, TSH, LIVER, BMP #### [facility] [address] [place] [address] Dr. Sugey Dominguez Cholesterol [Mass/Vol] 176 mg/dL Normal <=200 Th [facility] Comment on above: Performed By: #### L IPID, FT3, TSH, LIVER, BMP #### [facility] [address] [place] [address] Dr. Sugey Dominguez Cholesterol in HDL [Mass/Vol] 48 mg/dL Normal 40-60 [facility] Comment on above: Performed By: #### L IPID, FT3, TSH, LIVER, BMP #### [facility] [address] [address] [address] Sugey Dominguez Cholesterol in LDL [Mass/Vol] 80.4 mg/dL Normal [facility] Comment on above: Performed By: #### L IPID, FT3, TSH, LIVER, BMP #### [facility] [address] [address] [address] Sugey Dominguez Cholesterol.total/Marina sterol in HDL [Mass ratio] 3.7 {ratio} Normal [facility] Comment on above: Performed By: #### L IPID, FT3, TSH, LIVER, BMP #### [facility] [address] [address] [address] Sugey Dominguez HDL NORMAL > or = 60 mg/dl - LOW CARDIOVASCULAR RISK <40 mg/dl - HIGH CARDIOVASCULAR RISK Normal [facility] Comment on above: Performed By: #### L IPID, FT3, TSH, LIVER, BMP #### [facility] [address] [address] [address] Sugey Dominguez LDL CALC NORMAL SEE BELOW Normal [facility] Comment on above: Result Comment: <100 mg/dl OPTIMAL 100 - 129 mg/dl NEAR OR ABOVE OPTIMAL 130 - 159 mg/dl BORDERLINE HIGH 160 - 189 mg/dl HIGH >190 mg/dl VERY HIGH Performed By: #### L IPID, FT3, TSH, LIVER, BMP #### [facility] [address] [address] [address] Sugey Dominguez Triglyceride [Mass/Vol] 238 mg/dL Critically high <=150 [facility] Comment on above: Performed By: #### L IPID, FT3, TSH, LIVER, BMP #### [facility] [address] [address] [address] Sugey Dominguez VLDL CALC 47.6 mg/dL Normal [facility] Comment on above: Performed By: #### L IPID, FT3, TSH, LIVER, BMP #### [facility] [address] [place] [address] Dr. Sugey Dominguez LIVER PROFILEon 05-01-2022 Albumin [Mass/Vol] 3.8 g/dL Normal 3.4-5.0 [facility] Comment on above: Performed By: #### L IPID, FT3, TSH, LIVER, BMP #### [facility] [address] [place] [address] Dr. Sugey Dominguez Albumin/Globulin [Mass ratio] 0.9 {ratio} Normal [facility] Comment on above: Performed By: #### L IPID, FT3, TSH, LIVER, BMP #### [facility] [address] [place] [address] Dr. Sugey Dominguez ALP [Catalytic activity/Vol] 81 U/L Normal 46-116 [facility] Comment on above: Performed By: #### L IPID, FT3, TSH, LIVER, BMP #### [facility] [address] [place] [address] Dr. Sugey Dominguez ALT [Catalytic activity/Vol] 23 U/L Normal 14-59 [facility] Comment on above: Performed By: #### L IPID, FT3, TSH, LIVER, BMP #### [facility] [address] [place] [address] Dr. Sugey Dominguez AST [Catalytic activity/Vol] 15 U/L Normal 15-37 [facility] Comment on above: Performed By: #### L IPID, FT3, TSH, LIVER, BMP #### [facility] [address] [place] [address] Dr. Sugey Dominguez BILI, CONJUGATED 0.2 mg/dL Normal 0.0-0.2 [facility] Comment on above: Performed By: #### L IPID, FT3, TSH, LIVER, BMP #### [facility] [address] [place] [address] Dr. Sugey Dominguez Bilirubin [Mass/Vol] 0.6 mg/dL Normal 0.2-1.0 [facility] Comment on above: Performed By: #### L IPID, FT3, TSH, LIVER, BMP #### [facility] [address] [place] [address] Dr. Sugey Dominguez Globulin (S) [Mass/Vol] 4.0 g/dL Normal [facility] Comment on above: Performed By: #### L IPID, FT3, TSH, LIVER, BMP #### [facility] [address] [place] [address] Dr. Sugey Dominguez Protein [Mass/Vol] 7.8 g/dL Normal 6.4-8.2 [facility] Comment on above: Performed By: #### L IPID, FT3, TSH, LIVER, BMP #### [facility] [address] [place] [address] Dr. Sugey Dominguez MICROALBUMIN, RAND URon 04-06 mALB <1.3 Normal <=30.0 [facility] Comment on above: Performed By: #### M ALBR #### [facility] [address] [place] [address] Dr. Sugey Dominguez PROF CHEM 8 (BAS METB)on Anion gap [Moles/Vol] 12.9 mmol/L Normal [facility] Comment on above: Performed By: #### L IPID, FT3, TSH, LIVER, BMP #### [facility] [address] [place] [address] Dr. Sugey Dominguez Calcium [Mass/Vol] 9.6 mg/dL Normal 8.5-10.1 [facility] Comment on above: Performed By: #### L IPID, FT3, TSH, LIVER, BMP #### [facility] [address] [place] [address] Dr. Sugey Dominguez Chloride [Moles/Vol] 96 mmol/L Critically low 98-107 [facility] Comment on above: Performed By: #### L IPID, FT3, TSH, LIVER, BMP #### [facility] [address] [place] [address] Dr. Sugey Dominguez CO2 [Moles/Vol] 30.8 mmol/L Normal 21.0-32.0 [facility] Comment on above: Performed By: #### L IPID, FT3, TSH, LIVER, BMP #### [facility] [address] [address] [address] Sugey Dominguez Creatinine [Mass/Vol] 1.74 mg/dL Critically high 0.55-1.02 [facility] Comment on above: Performed By: #### L IPID, FT3, TSH, LIVER, BMP #### [facility] [address] [place] [address] Dr. Sugey Dominguez EGFR-AF BELIZEAN 35 mL/min/1.73m2 Critically low >=60 [facility] Comment on above: Performed By: #### L IPID, FT3, TSH, LIVER, BMP #### [facility] [address] [place] [address] Dr. Sugey Dominguez EGFR-NON AF BELIZEAN 29 mL/min/1.73m2 Critically low >=60 [facility] Comment on above: Performed By: #### L IPID, FT3, TSH, LIVER, BMP #### [facility] [address] [address] [address] Sugey Dominguez Glucose [Mass/Vol] 195 mg/dL Critically high 74-106 [facility] Comment on above: Performed By: #### L IPID, FT3, TSH, LIVER, BMP #### [facility] [address] [place] [address] Dr. Sugey Dominguez Potassium [Moles/Vol] 4.7 mmol/L Normal 3.5-5.1 [facility] Comment on above: Performed By: #### L IPID, FT3, TSH, LIVER, BMP #### [facility] [address] [place] [address] Dr. Sugey Dominguez Sodium [Moles/Vol] 135 mmol/L Critically low 136-145 Th [facility] Comment on above: Performed By: #### L IPID, FT3, TSH, LIVER, BMP #### [facility] [address] [place] [address] Dr. Sugey Dominguez Urea nitrogen [Mass/Vol] 47.0 mg/dL Critically high 7.0-18.0 [facility] Comment on above: Performed By: #### L IPID, FT3, TSH, LIVER, BMP #### [facility] [address] [address] [address] Sugey Dominguez Urea nitrogen/Creatinine [Mass ratio] 27.0 mg/mg Normal [facility] Comment on above: Performed By: #### L IPID, FT3, TSH, LIVER, BMP #### [facility] [address] [address] [address] Sugey Dominguez TSHon 05-01-2022 TSH 4.093 uIU/mL Critically high 0.358-3.740 [facility] Comment on above: Performed By: #### L IPID, FT3, TSH, LIVER, BMP #### [facility] [address] [address] [address] Sugey Dominguez GLYCOHEMOGLOBIN A1Con 2021 ADA RECOMMENDATION SEE BELOW Normal [facility] Comment on above: Result Comment: ADA RECOMMENDED LIMIT 4.0 - 6.0 ADA THERAPEUTIC TARGET < 7.0 ACTION SUGGESTED > 7.0 Performed By: #### A 1C ####[facility] [address] [place] [id number]. Sugey Dominguez Glucose [Mass/Vol] 183 mg/dL Normal [facility] Comment on above: Performed By: #### A 1C ####[facility] [address] [place], [place] [address]VkDarci Dominguez HbA1c (Bld) [Mass fraction] 8.0 % Critically high 4.5-6.2 [facility] Comment on above: Performed By: #### A 1C ####[facility] [address] [place], [place] [address]BdDr. Sugey Dominguez BASIC METABOLIC PANELon 03-08 Calcium mass conc 9.2 mg/dL Normal 8.6-10.3 [facility] Comment on above: Order Comment: No: D o not add to previous draw Performed By: #### 3 3210 #### [facility] [address] [place] [address], [facility] Chloride molar conc 96 mmol/L Low 98-107 [facility] Comment on above: Order Comment: No: D o not add to previous draw Performed By: #### 3 5200 #### [facility] [address] [place] [address], [facility] CO2 molar conc 27 mmol/L Normal 21-31 [facility] Comment on above: Order Comment: No: D o not add to previous draw Performed By: #### 3 5200 #### [facility] [address] [place] [address], [facility] Creatinine mass conc 0.70 mg/dL Normal 0.60-1.20 [facility] Comment on above: Order Comment: No: D o not add to previous draw Performed By: #### 3 5200 #### [facility] [address] [place] [address], [facility] GFR/1.73 sq M predicted among blacks MDRD vol rate/area (S/P/Bld) mL/min/{1.73_m2} Normal >60 [facility] Comment on above: Order Comment: No: D o not add to previous draw Result Comment: Calc ulation may not be valid for patients over 70 years Performed By: #### 3 5200 #### [facility] [address] [place] [address], [facility] GFR/1.73 sq M predicted among non-blacks MDRD vol rate/area (S/P/Bld) mL/min/{1.73_m2} Normal >60 [facility] Comment on above: Order Comment: No: D o not add to previous draw Result Comment: Calc ulation may not be valid for patients over 70 years Performed By: #### 3 5200 #### [facility] [address] [place] [address], [facility] Glucose mass conc 210 mg/dL High 70-100 [facility] Comment on above: Order Comment: No: D o not add to previous draw Performed By: #### 3 5200 #### [facility] [address] [place] [address], [facility] Potassium molar conc 4.0 mmol/L Normal 3.5-5.1 [facility] Comment on above: Order Comment: No: D o not add to previous draw Performed By: #### 3 5200 #### [facility] [facility] [address] [place] [address], [facility] Sodium molar conc 133 mmol/L Low 136-145 The [facility] Comment on above: Order Comment: No: D o not add to previous draw Performed By: #### 3 5200 #### [facility] [address] [facility] [place] [address], [facility] Urea nitrogen mass conc 20 mg/dL Normal 7-25 T he [facility] Comment on above: Order Comment: No: D o not add to previous draw Performed By: #### 3 5200 #### [facility] [address] [facility] [address] CBC W/DIFFon 03-24-2018 ABS BASOPHILS 0.1 10*3/uL Normal 0.0-0.2 The [facility] Comment on above: Order Comment: No: D o not add to previous draw Performed By: #### 3 5200 #### [facility] [address] [facility] [address] ABS IMM GRANS 0.1 10*3/uL Normal 0.0-0.2 The [facility] Comment on above: Order Comment: No: D o not add to previous draw Performed By: #### 3 5200 #### [facility] [address] [place] [address], [facility] ABS NEUTROPHILS 4.7 10*3/uL Normal 1.6-7.6 The [facility] Comment on above: Order Comment: No: D o not add to previous draw Performed By: #### 3 5200 #### [facility] [address] Basophils #/vol (Bld) 1.1 % High 0.0-1.0 The [facility] Comment on above: Order Comment: No: D o not add to previous draw Performed By: #### 3 5200 #### [facility] [address] [place] [id number], [facility] Eosinophils #/vol (Bld) 0.3 10*3/uL Normal 0.0-0.5 The [facility] Comment on above: Order Comment: No: D o not add to previous draw Performed By: #### 3 5200 #### [facility] [address] [place] [address], [facility] Eosinophils/100 WBC (Bld) 3.3 % Normal 0.0-6.0 The [facility] Comment on above: Order Comment: No: D o not add to previous draw Performed By: #### 3 5200 #### [facility] [address] [facility] [address] Erythrocyte distribution width Ratio (RBC) 16.2 % High 11.5-15.0 The [facility] Comment on above: Order Comment: No: D o not add to previous draw Performed By: #### 3 5200 #### [facility] [address] [facility] [place] [address], [facility] Hematocrit Volume Fraction (Bld) 42.5 % Normal 36.0-45.0 The [facility] Comment on above: Order Comment: No: D o not add to previous draw Performed By: #### 3 5200 #### [facility] [address] [place] [id number], [facility] Hemoglobin mass conc (Bld) 13.7 g/dL Normal 12.0-15.0 The [facility] Comment on above: Order Comment: No: D o not add to previous draw Performed By: #### 3 5200 #### [facility] [address] [place] [id number], [place] IMMATURE GRANS 0.8 % Normal 0.0-1.0 [facility] Comment on above: Order Comment: No: D o not add to previous draw Performed By: #### 3 5200 #### [facility] [address] [place] [address], [facility] Lymphocytes #/vol (Bld) 1.7 10*3/uL Normal 1.2-4.0 The [facility] Comment on above: Order Comment: No: D o not add to previous draw Performed By: #### 3 5200 #### [facility] [address] [facility] [place] [address], [facility] Lymphocytes/100 WBC (Bld) 22.1 % Normal 20.0-45.0 The [facility] Comment on above: Order Comment: No: D o not add to previous draw Performed By: #### 3 5200 #### [facility] [address] [facility] [place] [address], [facility] MCH Entitic mass (RBC) 30.0 pg Normal 27.0-33.0 Th e [facility] Comment on above: Order Comment: No: D o not add to previous draw Performed By: #### 3 5200 #### [facility] [address] [facility] [place] [address], [facility] MCHC mass conc (RBC) 32.2 g/dL Normal 32.0-35.0 The [facility] Comment on above: Order Comment: No: D o not add to previous draw Performed By: #### 3 5200 #### [facility] [address] [facility]. [place] [id number], [facility] MCV Entitic volume (RBC) 93.2 fL Normal 82.0-98.0 The [facility] Comment on above: Order Comment: No: D o not add to previous draw Performed By: #### 3 5200 #### [facility] [address] [place] [address], [facility] Monocytes #/vol (Bld) 0.7 10*3/uL Normal 0.1-1.0 Th e [facility] Comment on above: Order Comment: No: D o not add to previous draw Performed By: #### 3 5200 #### [facility] [address] [place] [address], [facility] MONOS 9.8 % Normal 5.0-12.0 The [facility] Comment on above: Order Comment: No: D o not add to previous draw Performed By: #### 3 5200 #### [facility] [address] [place] [address], [facility] Neutrophils/100 WBC (Bld) 62.9 % Normal 40.0-72.0 The [facility] Comment on above: Order Comment: No: D o not add to previous draw Performed By: #### 3 5200 #### [facility] [address] [place] [address], [facility] Nucleated RBC/100 WBC Ratio (Bld) 0 % Normal 0-0 The [facility] Comment on above: Order Comment: No: D o not add to previous draw Performed By: #### 3 5200 #### [facility] [address] [facility] [place] [address], [facility] PLAT CNT 188 10*3/uL Normal 150-400 The [facility] Comment on above: Order Comment: No: D o not add to previous draw Performed By: #### 3 5200 #### [facility] [address] [facility] [place] [address], [facility] RBC #/vol (Bld) 4.56 10*6/uL Normal 3.80-5.00 The [facility] Comment on above: Order Comment: No: D o not add to previous draw Performed By: #### 3 5200 #### [facility] [address] [place] [address], [facility] WBC #/vol (Bld) 7.48 10*3/uL Normal 4.00-10.60 The [facility] Comment on above: Order Comment: No: D o not add to previous draw Performed By: #### 3 5200 #### [facility] [address] [place] [address], [facility] POC GLUCOSE LABon 03-24-2018 Glucose mass conc 241 mg/dL High 70-100 The [facility] Comment on above: Performed By: #### 3 5200 #### [facility] [address] [place] [address], [facility] Glucose mass conc 189 mg/dL High 70-100 The [facility] Comment on above: Performed By: #### 3 5200 #### [facility] [address] [place] [address], [facility] BASIC METABOLIC PANELon 03-08 Calcium mass conc 9.1 mg/dL Normal 8.6-10.3 The [facility] Comment on above: Order Comment: No: D o not add to previous draw Performed By: #### 3 5200 #### [facility] [address] [place] [address], [facility] Chloride molar conc 95 mmol/L Low 98-107 The [facility] Comment on above: Order Comment: No: D o not add to previous draw Performed By: #### 3 5200 #### [facility] [address] [place] [address], [place] CO2 molar conc 32 mmol/L High 21-31 The [facility] Comment on above: Order Comment: No: D o not add to previous draw Performed By: #### 3 5200 #### [facility] [address] [place] [address], [place] Creatinine mass conc 0.71 mg/dL Normal 0.60-1.20 The [facility] Comment on above: Order Comment: No: D o not add to previous draw Performed By: #### 3 5200 #### [facility] [address] [place] [address], [place] GFR/1.73 sq M predicted among blacks MDRD vol rate/area (S/P/Bld) mL/min/{1.73_m2} Normal >60 The [facility] Comment on above: Order Comment: No: D o not add to previous draw Result Comment: Calc ulation may not be valid for patients over 70 years Performed By: #### 3 5200 #### [facility] [address] [place] [address], [facility] GFR/1.73 sq M predicted among non-blacks MDRD vol rate/area (S/P/Bld) mL/min/{1.73_m2} Normal >60 The [facility] Comment on above: Order Comment: No: D o not add to previous draw Result Comment: Calc ulation may not be valid for patients over 70 years Performed By: #### 3 5200 #### [facility] [address] [place] [address], [facility] Glucose mass conc 189 mg/dL High 70-100 The [facility] Comment on above: Order Comment: No: D o not add to previous draw Performed By: #### 3 5200 #### [facility] [address] [place] [address], [facility] Potassium molar conc 3.7 mmol/L Normal 3.5-5.1 [facility] Comment on above: Order Comment: No: D o not add to previous draw Performed By: #### 3 5200 #### [facility] [address] [place] [address], [place] Sodium molar conc 134 mmol/L Low 136-145 The [facility] Comment on above: Order Comment: No: D o not add to previous draw Performed By: #### 3 5200 #### [facility] [address] [place] [address], [place] Urea nitrogen mass conc 19 mg/dL Normal 7-25 T he [facility] Comment on above: Order Comment: No: D o not add to previous draw Performed By: #### 3 5200 #### [facility] [address] [place] [address], [facility] CBC COMPLETE BLOOD COUNTon 0 - Erythrocyte distribution width Ratio (RBC) 16.2 % High 11.5-15.0 The [facility] Comment on above: Order Comment: No: D o not add to previous draw Performed By: #### 3 5200 #### [facility] [address] [place] [address], [facility] Hematocrit Volume Fraction (Bld) 42.5 % Normal 36.0-45.0 The [facility] Comment on above: Order Comment: No: D o not add to previous draw Performed By: #### 3 5200 #### [facility] [address] [place] [address], [facility] Hemoglobin mass conc (Bld) 13.6 g/dL Normal 12.0-15.0 The [facility] Comment on above: Order Comment: No: D o not add to previous draw Performed By: #### 3 5200 #### [facility] [address] [place] [address], [facility] MCH Entitic mass (RBC) 29.9 pg Normal 27.0-33.0 Th e [facility] Comment on above: Order Comment: No: D o not add to previous draw Performed By: #### 3 5200 #### [facility] [address] [place] [address], [facility] MCHC mass conc (RBC) 32.0 g/dL Normal 32.0-35.0 The [facility] Comment on above: Order Comment: No: D o not add to previous draw Performed By: #### 3 5200 #### [facility] [address] [place] [address], [facility] MCV Entitic volume (RBC) 93.4 fL Normal 82.0-98.0 The [facility] Comment on above: Order Comment: No: D o not add to previous draw Performed By: #### 3 5200 #### [facility] [address] [place] [address], [facility] Nucleated RBC/100 WBC Ratio (Bld) 0 % Normal 0-0 The [facility] Comment on above: Order Comment: No: D o not add to previous draw Performed By: #### 3 5200 #### [facility] [address] [place] [address], [facility] PLAT CNT 198 10*3/uL Normal 150-400 The [facility] Comment on above: Order Comment: No: D o not add to previous draw Performed By: #### 3 5200 #### [facility] [address] [place] [address], [facility] RBC #/vol (Bld) 4.55 10*6/uL Normal 3.80-5.00 The [facility] Comment on above: Order Comment: No: D o not add to previous draw Performed By: #### 3 5200 #### [facility] [address] [place] [address], [facility] WBC #/vol (Bld) 7.49 10*3/uL Normal 4.00-10.60 The [facility] Comment on above: Order Comment: No: D o not add to previous draw Performed By: #### 3 5200 #### [facility] [address] POC GLUCOSE LABon 03-23-2018 Glucose mass conc 178 mg/dL High 70-100 The [facility] Comment on above: Performed By: #### 3 5200 #### [facility] [address] [facility] [place] [address], [facility] Glucose mass conc 163 mg/dL High 70-100 The [facility] Comment on above: Performed By: #### 3 5200 #### [facility] [address] [place] [address], [facility] Glucose mass conc 194 mg/dL High 70-100 The [facility] Comment on above: Performed By: #### 3 5200 #### [facility] [address] [place] [address], [facility] Glucose mass conc 164 mg/dL High 70-100 The [facility] Comment on above: Performed By: #### 3 5200 #### [facility] [address] [place] [address], [facility] BASIC METABOLIC PANELon - Calcium mass conc 9.0 mg/dL Normal 8.6-10.3 The [facility] Comment on above: Order Comment: No: D o not add to previous draw Performed By: #### 3 5200 #### [facility] [address] [place] [address], [facility] Chloride molar conc 95 mmol/L Low 98-107 The [facility] Comment on above: Order Comment: No: D o not add to previous draw Performed By: #### 3 5200 #### [facility] [address] [place] [address], [place] CO2 molar conc 36 mmol/L High 21-31 The [facility] Comment on above: Order Comment: No: D o not add to previous draw Performed By: #### 3 5200 #### [facility] [address] [place] [address], [facility] Creatinine mass conc 0.61 mg/dL Normal 0.60-1.20 The [facility] Comment on above: Order Comment: No: D o not add to previous draw Performed By: #### 3 5200 #### [facility] [address] [place] [address], [facility] GFR/1.73 sq M predicted among blacks MDRD vol rate/area (S/P/Bld) mL/min/{1.73_m2} Normal >60 The [facility] Comment on above: Order Comment: No: D o not add to previous draw Result Comment: Calc ulation may not be valid for patients over 70 years Performed By: #### 3 5200 #### [facility] [address] [place] [address], [facility] GFR/1.73 sq M predicted among non-blacks MDRD vol rate/area (S/P/Bld) mL/min/{1.73_m2} Normal >60 The [facility] Comment on above: Order Comment: No: D o not add to previous draw Result Comment: Calc ulation may not be valid for patients over 70 years Performed By: #### 3 5200 #### [facility] [address] [place] [address], [facility] Glucose mass conc 152 mg/dL High 70-100 The [facility] Comment on above: Order Comment: No: D o not add to previous draw Performed By: #### 3 5200 #### [facility] [address] [place] [address], [facility] Potassium molar conc 3.5 mmol/L Normal 3.5-5.1 The [facility] Comment on above: Order Comment: No: D o not add to previous draw Performed By: #### 3 5200 #### [facility] [address] [place] [address], [place] Sodium molar conc 137 mmol/L Normal 136-145 The [facility] Comment on above: Order Comment: No: D o not add to previous draw Performed By: #### 3 5200 #### [facility] [address] [place] [address], [facility] Urea nitrogen mass conc 17 mg/dL Normal 7-25 T he [facility] Comment on above: Order Comment: No: D o not add to previous draw Performed By: #### 3 5200 #### [facility] [address] [place] [address], [facility] CBC COMPLETE BLOOD COUNTon 0 2- Erythrocyte distribution width Ratio (RBC) 16.2 % High 11.5-15.0 The [facility] Comment on above: Order Comment: No: D o not add to previous draw Performed By: #### 3 5200 #### [facility] [address] [place] [address], [facility] Hematocrit Volume Fraction (Bld) 42.6 % Normal 36.0-45.0 The [facility] Comment on above: Order Comment: No: D o not add to previous draw Performed By: #### 3 5200 #### [facility] [address] [place] [address], [facility] Hemoglobin mass conc (Bld) 13.4 g/dL Normal 12.0-15.0 The [facility] Comment on above: Order Comment: No: D o not add to previous draw Performed By: #### 3 5200 #### [facility] [address] [place] [address], [facility] MCH Entitic mass (RBC) 29.4 pg Normal 27.0-33.0 Th e [facility] Comment on above: Order Comment: No: D o not add to previous draw Performed By: #### 3 5200 #### [facility] [address] [place] [address], [facility] MCHC mass conc (RBC) 31.5 g/dL Low 32.0-35.0 The [facility] Comment on above: Order Comment: No: D o not add to previous draw Performed By: #### 3 5200 #### [facility] [address] [place] [address], [facility] MCV Entitic volume (RBC) 93.4 fL Normal 82.0-98.0 The [facility] Comment on above: Order Comment: No: D o not add to previous draw Performed By: #### 3 5200 #### [facility] [address] [place] [address], [facility] Nucleated RBC/100 WBC Ratio (Bld) 0 % Normal 0-0 The [facility] Comment on above: Order Comment: No: D o not add to previous draw Performed By: #### 3 5200 #### [facility] [address] [place] [address], [facility] PLAT CNT 197 10*3/uL Normal 150-400 The [facility] Comment on above: Order Comment: No: D o not add to previous draw Performed By: #### 3 5200 #### [facility] [address] [place] [address], [facility] RBC #/vol (Bld) 4.56 10*6/uL Normal 3.80-5.00 The [facility] Comment on above: Order Comment: No: D o not add to previous draw Performed By: #### 3 5200 #### [facility] [address] [place] [address], [facility] WBC #/vol (Bld) 7.53 10*3/uL Normal 4.00-10.60 The [facility] Comment on above: Order Comment: No: D o not add to previous draw Performed By: #### 3 5200 #### [facility] [address] [place] [address], [facility] POC GLUCOSE LABon 03-22-2018 Glucose mass conc 187 mg/dL High 70-100 The [facility] Comment on above: Performed By: #### 3 5200 #### [facility] [address] [place] [address], [place] Glucose mass conc 161 mg/dL High 70-100 The [facility] Comment on above: Performed By: #### 3 5200 #### [facility] [address] [place] [address], [place] Glucose mass conc 226 mg/dL High 70-100 The [facility] Comment on above: Performed By: #### 3 5200 #### [facility] [address] [place] [address], [place] Glucose mass conc 175 mg/dL High 70-100 The [facility] Comment on above: Performed By: #### 3 5200 #### [facility] [address] [place] [address], [place] Glucose mass conc 148 mg/dL High 70-100 The [facility] Comment on above: Performed By: #### 3 5200 #### [facility] [address] [place] [address], [place] Glucose mass conc 191 mg/dL High 70-100 The [facility] Comment on above: Performed By: #### 5 6101, [id number] #### [facility] [address] [place] [address], [place] BASIC METABOLIC PANELon 03-08 Calcium mass conc 9.1 mg/dL Normal 8.6-10.3 The [facility] Comment on above: Order Comment: No: D o not add to previous draw Performed By: #### 5 610, [id number] #### [facility] [address] [place] [address], [place] Chloride molar conc 95 mmol/L Low 98-107 The [facility] Comment on above: Order Comment: No: D o not add to previous draw Performed By: #### 5 6101, 59578 #### [facility] [address] [place] [address], [place] CO2 molar conc 36 mmol/L High 21-31 The [facility] Comment on above: Order Comment: No: D o not add to previous draw Performed By: #### 5 6101, [id number] #### [facility] [address] [place] [address], [place] Creatinine mass conc 0.68 mg/dL Normal 0.60-1.20 The [facility] Comment on above: Order Comment: No: D o not add to previous draw Performed By: #### 5 6101, [id number] #### [facility] [address] [place] [address], [place] GFR/1.73 sq M predicted among blacks MDRD vol rate/area (S/P/Bld) mL/min/{1.73_m2} Normal >60 The [facility] Comment on above: Order Comment: No: D o not add to previous draw Result Comment: Calc ulation may not be valid for patients over 70 years Performed By: #### 5 6101, [id number] #### [facility] [address] [place] [address], [place] GFR/1.73 sq M predicted among non-blacks MDRD vol rate/area (S/P/Bld) mL/min/{1.73_m2} Normal >60 The [facility] Comment on above: Order Comment: No: D o not add to previous draw Result Comment: Calc ulation may not be valid for patients over 70 years Performed By: #### 5 6101, [id number] #### [facility] [address] [place] [address], [place] Glucose mass conc 147 mg/dL High 70-100 The [facility] Comment on above: Order Comment: No: D o not add to previous draw Performed By: #### 5 6101, 46086 #### [facility] [address] [place] [address], [place] Potassium molar conc 3.6 mmol/L Normal 3.5-5.1 The [facility] Comment on above: Order Comment: No: D o not add to previous draw Performed By: #### 5 6101, 64104 #### [facility] [address] [place] [address], [place] Sodium molar conc 139 mmol/L Normal 136-145 The [facility] Comment on above: Order Comment: No: D o not add to previous draw Performed By: #### 5 610, [id number] #### [facility] [address] [place] [address], [place] Urea nitrogen mass conc 14 mg/dL Normal 7-25 T he [facility] Comment on above: Order Comment: No: D o not add to previous draw Performed By: #### 5 610, 76542 #### [facility] [address] [place] [address], [facility] CBC COMPLETE BLOOD COUNTon 0 - Erythrocyte distribution width Ratio (RBC) 16.2 % High 11.5-15.0 [facility] Comment on above: Order Comment: No: D o not add to previous draw Performed By: #### 5 610, 27726 #### [facility] [address] [place] [address], [facility] Hematocrit Volume Fraction (Bld) 42.0 % Normal 36.0-45.0 The [facility] Comment on above: Order Comment: No: D o not add to previous draw Performed By: #### 5 610, 56698 #### [facility] [facility] [address] [place] [address], [facility] Hemoglobin mass conc (Bld) 13.5 g/dL Normal 12.0-15.0 The [facility] Comment on above: Order Comment: No: D o not add to previous draw Performed By: #### 5 6100, 45736 #### [facility] [address] [place] [address], [facility] MCH Entitic mass (RBC) 30.0 pg Normal 27.0-33.0 Th e [facility] Comment on above: Order Comment: No: D o not add to previous draw Performed By: #### 5 610, 28875 #### [facility] [address] [place] [address], [facility] MCHC mass conc (RBC) 32.1 g/dL Normal 32.0-35.0 [facility] Comment on above: Order Comment: No: D o not add to previous draw Performed By: #### 5 610, 93946 #### [facility] [address] [place] [address], [place] MCV Entitic volume (RBC) 93.3 fL Normal 82.0-98.0 [facility] Comment on above: Order Comment: No: D o not add to previous draw Performed By: #### 5 610, 92644 #### [facility] [address] [place] [address], [facility] Nucleated RBC/100 WBC Ratio (Bld) 0 % Normal 0-0 [facility] Comment on above: Order Comment: No: D o not add to previous draw Performed By: #### 5 6100, 62813 #### [facility] [address] [place] [address], [facility] PLAT CNT 196 10*3/uL Normal 150-400 [facility] Comment on above: Order Comment: No: D o not add to previous draw Performed By: #### 5 6100, 88637 #### [facility] [address] [place] [address], [facility] RBC #/vol (Bld) 4.50 10*6/uL Normal 3.80-5.00 The [facility] Comment on above: Order Comment: No: D o not add to previous draw Performed By: #### 5 6100, 66064 #### [facility] [address] [place] [address], [facility] WBC #/vol (Bld) 7.89 10*3/uL Normal 4.00-10.60 [facility] Comment on above: Order Comment: No: D o not add to previous draw Performed By: #### 5 610, 79431 #### [facility] [address] [place] [address], [facility] POC GLUCOSE LABon 03-21-2018 Glucose mass conc 174 mg/dL High 70-100 The [facility] Comment on above: Performed By: #### 5 610, 92322 #### [facility] [address] [place] [address], [facility] Glucose mass conc 129 mg/dL High 70-100 [facility] Comment on above: Performed By: #### 5 610, 44200 #### [facility] [address] [place] [address], [place] Glucose mass conc 280 mg/dL High 70-100 [facility] Comment on above: Performed By: #### 5 610, 68612 #### [facility] [address] [place] [address], [place] BASIC METABOLIC PANELon 03-08 Calcium mass conc 9.2 mg/dL Normal 8.6-10.3 [facility] Comment on above: Order Comment: No: D o not add to previous draw Performed By: #### 5 610, 72377 #### [facility] [address] [place] [address], [place] Chloride molar conc 96 mmol/L Low 98-107 The [facility] Comment on above: Order Comment: No: D o not add to previous draw Performed By: #### 5 610, 68129 #### [facility] [address] [place] [address], [facility] CO2 molar conc 33 mmol/L High 21-31 The [facility] Comment on above: Order Comment: No: D o not add to previous draw Performed By: #### 5 610, 86009 #### [facility] [address] [place] [address], [place] Creatinine mass conc 0.69 mg/dL Normal 0.60-1.20 [facility] Comment on above: Order Comment: No: D o not add to previous draw Performed By: #### 5 610, 03519 #### [facility] [address] [place] [address], [place] GFR/1.73 sq M predicted among blacks MDRD vol rate/area (S/P/Bld) mL/min/{1.73_m2} Normal >60 The [facility] Comment on above: Order Comment: No: D o not add to previous draw Result Comment: Calc ulation may not be valid for patients over 70 years Performed By: #### 5 6101, 00764 #### [facility] [address] [place] [address], [facility] GFR/1.73 sq M predicted among non-blacks MDRD vol rate/area (S/P/Bld) mL/min/{1.73_m2} Normal >60 The [facility] Comment on above: Order Comment: No: D o not add to previous draw Result Comment: Calc ulation may not be valid for patients over 70 years Performed By: #### 5 6101, 03167 #### [facility] [address] [place] [address], [facility] Glucose mass conc 134 mg/dL High 70-100 The [facility] Comment on above: Order Comment: No: D o not add to previous draw Performed By: #### 5 610, 27783 #### [facility] [address] [place] [address], [place] Potassium molar conc 4.1 mmol/L Normal 3.5-5.1 [facility] Comment on above: Order Comment: No: D o not add to previous draw Performed By: #### 5 6101, 80419 #### [facility] [address] [place] [address], [place] Sodium molar conc 137 mmol/L Normal 136-145 The [facility] Comment on above: Order Comment: No: D o not add to previous draw Performed By: #### 5 6101, 24389 #### [facility] [address] [place] [address], [place] Urea nitrogen mass conc 13 mg/dL Normal 7-25 T [facility] Comment on above: Order Comment: No: D o not add to previous draw Performed By: #### 5 6101, 87689 #### [facility] [address] [place] [address], [place] MAGNESIUM BLOODon 03-20-2018 Magnesium mass conc 1.9 mg/dL Normal 1.9-2.7 The [facility] Comment on above: Order Comment: No: D o not add to previous draw Performed By: #### 5 6101, 49611 #### [facility] [address] [place] [address], [facility] POC GLUCOSE LABon 03-20-2018 Glucose mass conc 109 mg/dL High 70-100 The [facility] Comment on above: Performed By: #### 5 610, 65277 #### [facility] [address] [place] [address], [facility] Glucose mass conc 194 mg/dL High 70-100 The [facility] Comment on above: Performed By: #### 5 610, 11823 #### [facility] [address] [place] [address], [facility] Glucose mass conc 119 mg/dL High 70-100 The [facility] Comment on above: Performed By: #### 5 610, 62599 #### [facility] [address] [place] [address], [facility] Glucose mass conc 203 mg/dL High 70-100 The [facility] Comment on above: Performed By: #### 5 6101, 17045 #### [facility] [address] [place] [address], [facility] APTTon 03-19-2018 aPTT Coag time (Bld) 32.1 s Normal 25.0-35.0 The [facility] Comment on above: Order Comment: No: [...] THIS PURPOSE. Performed By: #### 5 6101, 75987 #### [facility] [address] [place] [address], [place] BASIC METABOLIC PANELon 03-08 Calcium mass conc 9.2 mg/dL Normal 8.6-10.3 [facility] Comment on above: Order Comment: No: D o not add to previous draw Performed By: #### 5 6101, 94678 #### [facility] [address] [place] [address], [place] Chloride molar conc 95 mmol/L Low 98-107 The [facility] Comment on above: Order Comment: No: D o not add to previous draw Performed By: #### 5 6101, 99059 #### [facility] [address] [place] [address], [place] CO2 molar conc 34 mmol/L High 21-31 The [facility] Comment on above: Order Comment: No: D o not add to previous draw Performed By: #### 5 6101, 93437 #### [facility] [address] [place] [address], [place] Creatinine mass conc 0.55 mg/dL Low 0.60-1.20 The [facility] Comment on above: Order Comment: No: D o not add to previous draw Performed By: #### 5 6101, 75350 #### [facility] [address] [place] [address], [place] GFR/1.73 sq M predicted among blacks MDRD vol rate/area (S/P/Bld) mL/min/{1.73_m2} Normal >60 The [facility] Comment on above: Order Comment: No: D o not add to previous draw Result Comment: Calc ulation may not be valid for patients over 70 years Performed By: #### 5 6101, 89787 #### [facility] [address] [place] [address], [place] GFR/1.73 sq M predicted among non-blacks MDRD vol rate/area (S/P/Bld) mL/min/{1.73_m2} Normal >60 The [facility] Comment on above: Order Comment: No: D o not add to previous draw Result Comment: Calc ulation may not be valid for patients over 70 years Performed By: #### 5 6101, 80254 #### [facility] [address] [place] [address], [facility] Glucose mass conc 136 mg/dL High 70-100 The [facility] Comment on above: Order Comment: No: D o not add to previous draw Performed By: #### 5 610, 79243 #### [facility] [address] [place] [address], [facility] Potassium molar conc 3.4 mmol/L Low 3.5-5.1 [facility] Comment on above: Order Comment: No: D o not add to previous draw Performed By: #### 5 6101, 21471 #### [facility] [address] [place] [id number], [facility] Sodium molar conc 137 mmol/L Normal 136-145 The [facility] Comment on above: Order Comment: No: D o not add to previous draw Performed By: #### 5 6101, 30860 #### [facility] [address] [place] [address], [facility] Urea nitrogen mass conc 11 mg/dL Normal 7-25 T he [facility] Comment on above: Order Comment: No: D o not add to previous draw Performed By: #### 5 6101, 66459 #### [facility] [address] [place] [id number], [facility] CBC W/DIFFon 03-19-2018 ABS BASOPHILS 0.1 10*3/uL Normal 0.0-0.2 The [facility] Comment on above: Order Comment: No: D o not add to previous draw Performed By: #### 5 6101, 44413 #### [facility] [address] [place] ABS IMM GRANS 0.1 10*3/uL Normal 0.0-0.2 The [facility] Comment on above: Order Comment: No: D o not add to previous draw Performed By: #### 5 6100, 63221 #### [facility] [address] [place] [address], [facility] ABS NEUTROPHILS 6.1 10*3/uL Normal 1.6-7.6 The [facility] Comment on above: Order Comment: No: D o not add to previous draw Performed By: #### 5 6100, 65123 #### [facility] [address] [place] [address], [facility] Basophils #/vol (Bld) 0.8 % Normal 0.0-1.0 The [facility] Comment on above: Order Comment: No: D o not add to previous draw Performed By: #### 5 6100, 92747 #### [facility] [address] [place] [address], [facility] Eosinophils #/vol (Bld) 0.2 10*3/uL Normal 0.0-0.5 The [facility] Comment on above: Order Comment: No: D o not add to previous draw Performed By: #### 5 6100, 34808 #### [facility] [address] [facility] [place] [address], [facility] Eosinophils/100 WBC (Bld) 1.9 % Normal 0.0-6.0 The [facility] Comment on above: Order Comment: No: D o not add to previous draw Performed By: #### 5 6100, 87648 #### [facility] [address] [place] [address], [facility] Erythrocyte distribution width Ratio (RBC) 16.4 % High 11.5-15.0 The [facility] Comment on above: Order Comment: No: D o not add to previous draw Performed By: #### 5 6100, 01733 #### [facility] [address] Hematocrit Volume Fraction (Bld) 43.7 % Normal 36.0-45.0 The [facility] Comment on above: Order Comment: No: D o not add to previous draw Performed By: #### 5 6100, 95549 #### [facility] [address] [place] [address], [facility] Hemoglobin mass conc (Bld) 14.0 g/dL Normal 12.0-15.0 The [facility] Comment on above: Order Comment: No: D o not add to previous draw Performed By: #### 5 6100, 17190 #### [facility] [address] [facility] [place] [place] [address], [facility] IMMATURE GRANS 0.7 % Normal 0.0-1.0 The [facility] Comment on above: Order Comment: No: D o not add to previous draw Performed By: #### 5 6100, 55715 #### [facility] [address] [facility] [place] [address], [facility] Lymphocytes #/vol (Bld) 1.7 10*3/uL Normal 1.2-4.0 The [facility] Comment on above: Order Comment: No: D o not add to previous draw Performed By: #### 5 6100, 76256 #### [facility] [address] [facility] [place] [address], [facility] Lymphocytes/100 WBC (Bld) 19.1 % Low 20.0-45.0 The [facility] Comment on above: Order Comment: No: D o not add to previous draw Performed By: #### 5 6100, 68454 #### [facility] [address] [facility] [place] [address], [facility] MCH Entitic mass (RBC) 29.5 pg Normal 27.0-33.0 Th e [facility] Comment on above: Order Comment: No: D o not add to previous draw Performed By: #### 5 6100, 51346 #### [facility] [address] [place] [address], [facility] MCHC mass conc (RBC) 32.0 g/dL Normal 32.0-35.0 The [facility] Comment on above: Order Comment: No: D o not add to previous draw Performed By: #### 5 610, 74124 #### [facility] [address] [place] [id number], [facility] MCV Entitic volume (RBC) 92.0 fL Normal 82.0-98.0 The [facility] Comment on above: Order Comment: No: D o not add to previous draw Performed By: #### 5 6100, 61000 #### [facility] [address] [place] [address], [facility] Monocytes #/vol (Bld) 0.6 10*3/uL Normal 0.1-1.0 Th e [facility] Comment on above: Order Comment: No: D o not add to previous draw Performed By: #### 5 6100, 67627 #### [facility] [address] [place] [address], [facility] MONOS 7.0 % Normal 5.0-12.0 The [facility] Comment on above: Order Comment: No: D o not add to previous draw Performed By: #### 5 6100, 22175 #### [facility] [address] [place] [address], [facility] Neutrophils/100 WBC (Bld) 70.5 % Normal 40.0-72.0 The [facility] Comment on above: Order Comment: No: D o not add to previous draw Performed By: #### 5 610, 42818 #### [facility] [address] [place] [id number], [facility] Nucleated RBC/100 WBC Ratio (Bld) 0 % Normal 0-0 The [facility] Comment on above: Order Comment: No: D o not add to previous draw Performed By: #### 5 610, 01151 #### [facility] PLAT CNT 200 10*3/uL Normal 150-400 [facility] Comment on above: Order Comment: No: D o not add to previous draw Performed By: #### 5 6101, 57247 #### [address] RBC #/vol (Bld) 4.75 10*6/uL Normal 3.80-5.00 The [facility] Comment on above: Order Comment: No: D o not add to previous draw Performed By: #### 5 6101, 00283 #### [address] WBC #/vol (Bld) 8.62 10*3/uL Normal 4.00-10.60 [facility] Comment on above: Order Comment: No: D o not add to previous draw Performed By: #### 5 6101, 24407 #### [address] CHEST AND LATERALon 03-19-19 19 CHEST AND LATERAL [facility] Department of Radiology [address] [place] [address] Patient Name: JACQUELYN KAPLAN : 1945 Sex: F Age: Race: White Pt. Location: [id number] Patient Status: I Ordered Date: 03/19/2018 12:15:00 [...] cardiomegaly. Electronically signed by:Shankar Nicolas. Transcribed by: [id number], User Resident: Electronically Signed by: SHANKAR NICOLAS @ 03/19/2018 08:20 AM Normal The [facility] Comment on above: Order Comment: No: D o not add to previous draw COMP METABOLIC PANELon 03-19 Albumin mass conc 3.3 g/dL Low 3.5-5.7 [facility] Comment on above: Order Comment: No: D o not add to previous draw Performed By: #### 5 6101, 06305 #### [facility] [address] [facility] [place] [address], [facility] ALKALINE PHOSPH 58 IU/L Normal 34-104 The [facility] Comment on above: Order Comment: No: D o not add to previous draw Performed By: #### 5 6101, 03200 #### [facility] [address] [facility] [place] [address], [facility] ALT enzyme act/vol 28 U/L Normal 7-52 [facility] Comment on above: Order Comment: No: D o not add to previous draw Performed By: #### 5 6101, 20809 #### [facility] [address] [place] [address], [place] AST enzyme act/vol 22 U/L Normal 13-39 The [facility] Comment on above: Order Comment: No: D o not add to previous draw Performed By: #### 5 610, 00148 #### [facility] [address] [place] [address], [place] Bilirubin mass conc 1.9 mg/dL High 0.3-1.0 The [facility] Comment on above: Order Comment: No: D o not add to previous draw Performed By: #### 5 610, 04686 #### [facility] [address] [place] [address], [place] Calcium mass conc 9.0 mg/dL Normal 8.6-10.3 [facility] Comment on above: Order Comment: No: D o not add to previous draw Performed By: #### 5 610, 53487 #### [facility] [address] [place] [address], [place] Chloride molar conc 94 mmol/L Low 98-107 [facility] Comment on above: Order Comment: No: D o not add to previous draw Performed By: #### 5 610, 04939 #### [facility] [address] [place] [address], [place] CO2 molar conc 36 mmol/L High 21-31 The [facility] Comment on above: Order Comment: No: D o not add to previous draw Performed By: #### 5 610, 91136 #### [facility] [address] [place] [address], [place] Creatinine mass conc 0.61 mg/dL Normal 0.60-1.20 The [facility] Comment on above: Order Comment: No: D o not add to previous draw Performed By: #### 5 610, 11934 #### [facility] [address] [place] [address], [facility] GFR/1.73 sq M predicted among blacks MDRD vol rate/area (S/P/Bld) mL/min/{1.73_m2} Normal >60 The [facility] Comment on above: Order Comment: No: D o not add to previous draw Result Comment: Calc ulation may not be valid for patients over 70 years Performed By: #### 5 6101, 42571 #### [facility] [address] [place] [address], [place] GFR/1.73 sq M predicted among non-blacks MDRD vol rate/area (S/P/Bld) mL/min/{1.73_m2} Normal >60 The [facility] Comment on above: Order Comment: No: D o not add to previous draw Result Comment: Calc ulation may not be valid for patients over 70 years Performed By: #### 5 6101, 32598 #### [facility] [address] [place] [address], [facility] Glucose mass conc 210 mg/dL High 70-100 The [facility] Comment on above: Order Comment: No: D o not add to previous draw Performed By: #### 5 6101, 74239 #### [facility] [address] [place] [address], [place] Potassium molar conc 3.3 mmol/L Low 3.5-5.1 The [facility] Comment on above: Order Comment: No: D o not add to previous draw Performed By: #### 5 6101, 28738 #### [facility] [address] [place] [address], [place] Protein mass conc 6.3 g/dL Normal 6.0-8.3 [facility] Comment on above: Order Comment: No: D o not add to previous draw Performed By: #### 5 6101, 72808 #### [facility] [address] [place] [address], [place] Sodium molar conc 137 mmol/L Normal 136-145 [facility] Comment on above: Order Comment: No: D o not add to previous draw Performed By: #### 5 6101, 35967 #### [facility] [address] [facility] Urea nitrogen mass conc 11 mg/dL Normal 7-25 T he [facility] Comment on above: Order Comment: No: D o not add to previous draw Performed By: #### 5 6101, 15108 #### [facility] [address] History and Physicalon 03-19 History and Physical MR#: [id number] [facility] Pt. 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 She was admitted to [facility] where she was found to be [...] stenosis during her last hospitalization here at [facility] earlier this month. There was a discussion with Cardiology service about aortic valve replacement, whether to have TAVR versus open heart surgery and that decision has not been made yet. She was supposed to follow up with our Cardiology service next week. Transfer was initiated from [place] for further evaluation from our Cardiology service and also due to concern at [place] whether she needed urgent valve replacement done [...] heart rate 73, respiratory rate 23, blood [id number], pulse ox 99% 2L NC. EYES: Pupils [...] alert and oriented x3. LAB STUDIES: From [facility], March 18, 2018. CBC; WBC 7.4, hemoglobin 12.7, hematocrit 39.2, platelet count 174. BMP: Sodium 142, potassium 3.3, chloride 101, bicarb 34.7, BUN 12, creatinine 0.71, calcium 8.5, glucose 93. The patient had BNP of 16,271 on March 16, 2018, when she initially presented. It appears that cardiac enzymes are negative. Chest x-ray is reported to be showing pulmonary edema from [place], but no images were sent over with [...] John MD Date Trans: 03/19/2018 01:05 A/jerri [id number] Normal The [facility] MAGNESIUM BLOODon 03-19-2018 Magnesium mass conc 1.8 mg/dL Low 1.9-2.7 [facility] Comment on above: Order Comment: Yes: Add to Previous draw if able Performed By: #### 3 2220, 41592, 06122, 96425 #### [facility] [address] [place] [address], [place] POC GLUCOSE LABon 03-19-2018 Glucose mass conc 260 mg/dL High 70-100 The [facility] Comment on above: Performed By: #### 5 7931, 51401 #### [facility] [address] [place] [address], [place] Glucose mass conc 200 mg/dL High 70-100 [facility] Comment on above: Performed By: #### 5 6101, 86109 #### [facility] [address] [place] [address], [facility] Glucose mass conc 130 mg/dL High 70-100 [facility] Comment on above: Performed By: #### 3 5200, 02335, 47029, 11863 #### [facility] [address] [facility] [place] [address], [facility] Glucose mass conc 112 mg/dL High 70-100 [facility] Comment on above: Performed By: #### 3 5200, 63426, 93630, 69843 #### [facility] [address] [facility] [address] PROTHROMBIN TIMEon 9 INR Coag RelTime (PPP) 1.19 {INR} High 0.91-1.16 Th e [facility] Comment on above: Order Comment: No: [...] CHEST 1995;[id number]. Performed By: #### 5 6101, 89212 #### [facility] [address] Prothrombin time (PT) Coag time (PPP) 15.1 s High 12.3-14.8 [facility] Comment on above: Order Comment: No: D o not add to previous draw Result Comment: ALL RESULTS MUST BE INTERPRETED WITH RESPECT TO BLOOD DRAWING ARTIFACT OR DILUTION ERROR OF ANTICOAGULANT AT THE TIME OF SAMPLING. Performed By: #### 5 6101, 73164 #### [facility] [address] APTTon 03-13-2018 aPTT Coag time (Bld) 52.4 s High 25.0-35.0 [facility] Comment on above: Order Comment: Yes: [...] OF HEPARIN. Performed By: #### 3 5200, 84015, 66563, 47281 #### [facility] [address] aPTT Coag time (Bld) 56.9 s High 25.0-35.0 [facility] Comment on above: Order Comment: Yes: [...] OF HEPARIN. Performed By: #### 3 5200, 19866, 93876, 39316 #### [facility] [address] [place] [address], [facility] aPTT Coag time (Bld) 53.6 s High 25.0-35.0 [facility] Comment on above: Order Comment: Yes: [...] OF HEPARIN. Performed By: #### 3 5200, 54432, 09156, 39656 #### [facility] [address] [place] [address], [facility] POC GLUCOSE LABon 03-13-2018 Glucose mass conc 140 mg/dL High 70-100 The [facility] Comment on above: Performed By: #### 3 5200, 43896, 85423, 15336 #### [facility] [address] [place] [address], [facility] Glucose mass conc 189 mg/dL High 70-100 The [facility] Comment on above: Performed By: #### 3 5200, 64485, 16893, 89071 #### [facility] [address] [place] [address], [facility] Glucose mass conc 156 mg/dL High 70-100 [facility] Comment on above: Performed By: #### 3 5200, 08343, 26251, 80814 #### [facility] [address] [place] [address], [facility] UFH HEPARIN ASSAYon 03-13-19 19 UNFRACTIONATED HEPARIN 0.14 IU/mL Critically low 0.30-0.70 The [facility] Comment on above: Order Comment: Yes: Add to Previous draw if able Result Comment: [place] roxaban and Apixaban will interfere with the anti Xa assay used to monitor UFH and LMWH. Results called. Accurately read back by PEGGY ISAACS Performed By: #### 3 5200, 93735, 14855, 09472 #### [facility] [address] [place] [address], [facility] UNFRACTIONATED HEPARIN 0.18 IU/mL Low 0.30-0.70 Th e [facility] Comment on above: Order Comment: Yes: Add to Previous draw if able Result Comment: Kathy roxaban and Apixaban will interfere with the anti Xa assay used to monitor UFH and LMWH. Performed By: #### 3 5200, 52955, 13488, 31222 #### [facility] [address] [place] [address], [facility] UNFRACTIONATED HEPARIN 0.18 IU/mL Low 0.30-0.70 Th e [facility] Comment on above: Result Comment: Kathy roxaban and Apixaban will interfere with the anti Xa assay used to monitor UFH and LMWH. ADDED PER PROTOCOL. Performed By: #### 3 5200, 35075, 92431, 55628 #### [facility] [address] [place] [address], [facility] APTTon 03-12-2018 aPTT Coag time (Bld) 49.2 s High 25.0-35.0 [facility] Comment on above: Order Comment: Yes: [...] THIS PURPOSE. Performed By: #### 3 5200, 21755, 35366, 24868 #### [facility] [address] [place] [address], [facility] aPTT Coag time (Bld) 59.2 s High 25.0-35.0 [facility] Comment on above: Order Comment: Yes: [...] OF HEPARIN. Performed By: #### 3 5200, 18622, 37341, 92185 #### [facility] [address] [place] [address], [facility] aPTT Coag time (Bld) 43.7 s High 25.0-35.0 The [facility] Comment on above: Order Comment: Yes: [...] THIS PURPOSE. Performed By: #### 3 5200, 51986, 09548, 30241 #### [facility] [address] BASIC METABOLIC PANELon 02-0 Calcium mass conc 8.9 mg/dL Normal 8.6-10.3 [facility] Comment on above: Order Comment: Yes: Add to Previous draw if able Performed By: #### 3 5200, 26724, 49922, 75172 #### [facility] [address] [place] [address], [facility] Chloride molar conc 100 mmol/L Normal 98-107 [facility] Comment on above: Order Comment: Yes: Add to Previous draw if able Performed By: #### 3 5200, 37302, 46787, 38760 #### [facility] [address] [place] [address], [facility] CO2 molar conc 28 mmol/L Normal 21-31 The [facility] Comment on above: Order Comment: Yes: Add to Previous draw if able Performed By: #### 3 5200, 19194, 38322, 00002 #### [facility] [address] [place] [address], [place] Creatinine mass conc 0.50 mg/dL Low 0.60-1.20 The [facility] Comment on above: Order Comment: Yes: Add to Previous draw if able Performed By: #### 3 5200, 70400, 00139, 68827 #### [facility] [address] [place] [address], [place] GFR/1.73 sq M predicted among blacks MDRD vol rate/area (S/P/Bld) mL/min/{1.73_m2} Normal >60 The [facility] Comment on above: Order Comment: Yes: Add to Previous draw if able Result Comment: Calc ulation may not be valid for patients over 70 years Performed By: #### 3 5200, 81846, 83107, 35942 #### [facility] [address] [place] [address], [place] GFR/1.73 sq M predicted among non-blacks MDRD vol rate/area (S/P/Bld) mL/min/{1.73_m2} Normal >60 The [facility] Comment on above: Order Comment: Yes: Add to Previous draw if able Result Comment: Calc ulation may not be valid for patients over 70 years Performed By: #### 3 5200, 47110, 99745, 75159 #### [facility] [address] [place] [address], [place] Glucose mass conc 132 mg/dL High 70-100 [facility] Comment on above: Order Comment: Yes: Add to Previous draw if able Performed By: #### 3 5200, 50888, 57933, 99413 #### [facility] [address] [place] [address], [place] Potassium molar conc 3.6 mmol/L Normal 3.5-5.1 [facility] Comment on above: Order Comment: Yes: Add to Previous draw if able Performed By: #### 3 5200, 43420, 16846, 22921 #### [facility] [address] [place] [address], [facility] Sodium molar conc 137 mmol/L Normal 136-145 [facility] Comment on above: Order Comment: Yes: Add to Previous draw if able Performed By: #### 3 5200, 64175, 45159, 08326 #### [facility] [address] [place] [address], [facility] Urea nitrogen mass conc 10 mg/dL Normal 7-25 T he [facility] Comment on above: Order Comment: Yes: Add to Previous draw if able Performed By: #### 3 5200, 22163, 27986, 77522 #### [facility] [address] [place] [address], [facility] CBC COMPLETE BLOOD COUNTon 0 - Erythrocyte distribution width Ratio (RBC) 16.1 % High 11.5-15.0 [facility] Comment on above: Order Comment: Yes: Add to Previous draw if able Performed By: #### 3 5200, 69590, 05533, 53312 #### [facility] [address] [place] [address], [facility] Hematocrit Volume Fraction (Bld) 39.3 % Normal 36.0-45.0 [facility] Comment on above: Order Comment: Yes: Add to Previous draw if able Performed By: #### 3 5200, 71707, 56363, 79369 #### [facility] [address] [place] [address], [place] Hemoglobin mass conc (Bld) 12.4 g/dL Normal 12.0-15.0 [facility] Comment on above: Order Comment: Yes: Add to Previous draw if able Performed By: #### 3 5200, 13020, 45058, 15958 #### [facility] [address] [place] [address], [place] MCH Entitic mass (RBC) 29.7 pg Normal 27.0-33.0 Th e [facility] Comment on above: Order Comment: Yes: Add to Previous draw if able Performed By: #### 3 5200, 63316, 17232, 70111 #### [facility] [address] MCHC mass conc (RBC) 31.6 g/dL Low 32.0-35.0 [facility] Comment on above: Order Comment: Yes: Add to Previous draw if able Performed By: #### 3 5200, 18321, 69783, 38277 #### [facility] [address] MCV Entitic volume (RBC) 94.0 fL Normal 82.0-98.0 [facility] Comment on above: Order Comment: Yes: Add to Previous draw if able Performed By: #### 3 5200, 05454, 71451, 91671 #### [facility] [address] Nucleated RBC/100 WBC Ratio (Bld) 0 % Normal 0-0 [facility] Comment on above: Order Comment: Yes: Add to Previous draw if able Performed By: #### 3 5200, 37127, 72591, 90693 #### [facility] [address] [place] [address], [facility] PLAT CNT 185 10*3/uL Normal 150-400 [facility] Comment on above: Order Comment: Yes: Add to Previous draw if able Performed By: #### 3 5200, 29086, 62146, 54429 #### [facility] [address] [place] [address], [facility] RBC #/vol (Bld) 4.18 10*6/uL Normal 3.80-5.00 [facility] Comment on above: Order Comment: Yes: Add to Previous draw if able Performed By: #### 3 5200, 64509, 49623, 64576 #### [facility] [address] [place] [address], [facility] WBC #/vol (Bld) 6.85 10*3/uL Normal 4.00-10.60 [facility] Comment on above: Order Comment: Yes: Add to Previous draw if able Performed By: #### 3 5200, 59422, 32706, 29694 #### [facility] [address] [place] [address], [facility] POC GLUCOSE LABon 03-12-2018 Glucose mass conc 135 mg/dL High 70-100 [facility] Comment on above: Performed By: #### 3 5200, 30555, 14548, 40574 #### [facility] [address] [place] [address], [facility] Glucose mass conc 188 mg/dL High 70-100 [facility] Comment on above: Performed By: #### 3 5200, 75769, 20374, 13620 #### [facility] [address] [place] [address], [facility] Glucose mass conc 130 mg/dL High 70-100 [facility] Comment on above: Performed By: #### 3 5200, 64081, 61848, 18127 #### [facility] [address] [place] [address], [facility] Glucose mass conc 139 mg/dL High 70-100 [facility] Comment on above: Performed By: #### 3 5200, 55758, 59151, 10930 #### [facility] [address] [place] [address], [facility] UFH HEPARIN ASSAYon 03-12-19 19 UNFRACTIONATED HEPARIN 0.30 IU/mL Normal 0.30-0.70 Th e [facility] Comment on above: Order Comment: Yes: Add to Previous draw if able Result Comment: [place] roxaban and Apixaban will interfere with the anti Xa assay used to monitor UFH and LMWH. Performed By: #### 3 5200, 12064, 21436, 21485 #### [facility] [address] [place] [address], [facility] APTTon 03-11-2018 aPTT Coag time (Bld) 88.3 s Critically high 25.0-35.0 [facility] Comment on above: Order Comment: Yes: [...] OF HEPARIN. Performed By: #### 3 5200, 13792, 70113, 03471 #### [facility] [address] aPTT Coag time (Bld) 50.4 s High 25.0-35.0 [facility] Comment on above: Order Comment: No: [...] THIS PURPOSE. Performed By: #### 3 5200, 56403, 51104, 85816 #### [facility] [address] BASIC METABOLIC PANELon Calcium mass conc 8.9 mg/dL Normal 8.6-10.3 [facility] Comment on above: Order Comment: No: D o not add to previous draw Performed By: #### 3 5200, 55475, 70225, 53357 #### [facility] [address] [place] [address], [place] Chloride molar conc 101 mmol/L Normal 98-107 The [facility] Comment on above: Order Comment: No: D o not add to previous draw Performed By: #### 3 5200, 57741, 14948, 51110 #### [facility] [address] [place] [address], [place] CO2 molar conc 29 mmol/L Normal 21-31 The [facility] Comment on above: Order Comment: No: D o not add to previous draw Performed By: #### 3 5200, 84494, 36255, 06444 #### [facility] [address] [place] [address], [place] Creatinine mass conc 0.55 mg/dL Low 0.60-1.20 [facility] Comment on above: Order Comment: No: D o not add to previous draw Performed By: #### 3 5200, 50277, 27237, 64485 #### [facility] [address] [place] [address], [place] GFR/1.73 sq M predicted among blacks MDRD vol rate/area (S/P/Bld) mL/min/{1.73_m2} Normal >60 The [facility] Comment on above: Order Comment: No: D o not add to previous draw Result Comment: Calc ulation may not be valid for patients over 70 years Performed By: #### 3 5200, 80340, 38031, 08861 #### [facility] [address] [place] [address], [place] GFR/1.73 sq M predicted among non-blacks MDRD vol rate/area (S/P/Bld) mL/min/{1.73_m2} Normal >60 The [facility] Comment on above: Order Comment: No: D o not add to previous draw Result Comment: Calc ulation may not be valid for patients over 70 years Performed By: #### 3 5200, 61828, 52941, 95170 #### [facility] [address] [place] [address], [facility] Glucose mass conc 152 mg/dL High 70-100 [facility] Comment on above: Order Comment: No: D o not add to previous draw Performed By: #### 3 5200, 64584, 91831, 53570 #### [facility] [address] [place] [id number], [facility] Potassium molar conc 3.7 mmol/L Normal 3.5-5.1 The [facility] Comment on above: Order Comment: No: D o not add to previous draw Performed By: #### 3 5200, 56506, 39325, 33367 #### [facility] [address] [place] [id number], [facility] Sodium molar conc 138 mmol/L Normal 136-145 [facility] Comment on above: Order Comment: No: D o not add to previous draw Performed By: #### 3 5200, 30150, 66771, 24678 #### [facility] [address] [facility] [place] [address], [facility] Urea nitrogen mass conc 12 mg/dL Normal 7-25 T he [facility] Comment on above: Order Comment: No: D o not add to previous draw Performed By: #### 3 5200, 66663, 69864, 14107 #### [facility] [address] [facility] [place] [address], [facility] CBC W/DIFFon 03-11-2018 ABS BASOPHILS 0.1 10*3/uL Normal 0.0-0.2 The [facility] Comment on above: Order Comment: No: D o not add to previous draw Performed By: #### 3 5200, 34071, 03444, 18628 #### [facility] [address] [place] [address], [facility] ABS IMM GRANS 0.0 10*3/uL Normal 0.0-0.2 The [facility] Comment on above: Order Comment: No: D o not add to previous draw Performed By: #### 3 5200, 07721, 02754, 86122 #### [facility] [address] [place] [address], [facility] ABS NEUTROPHILS 4.7 10*3/uL Normal 1.6-7.6 The [facility] Comment on above: Order Comment: No: D o not add to previous draw Performed By: #### 3 5200, 63014, 59238, 37371 #### [facility] [address] [place] [address], [facility] Basophils #/vol (Bld) 0.9 % Normal 0.0-1.0 The [facility] Comment on above: Order Comment: No: D o not add to previous draw Performed By: #### 3 5200, 17889, 58781, 32935 #### [facility] [address] [place] [address], [facility] Eosinophils #/vol (Bld) 0.2 10*3/uL Normal 0.0-0.5 The [facility] Comment on above: Order Comment: No: D o not add to previous draw Performed By: #### 3 5200, 91656, 22579, 15886 #### [facility] [address] [place] [address], [facility] Eosinophils/100 WBC (Bld) 2.4 % Normal 0.0-6.0 The [facility] Comment on above: Order Comment: No: D o not add to previous draw Performed By: #### 3 5200, 39751, 42239, 61845 #### [facility] [address] [place] [address], [facility] Erythrocyte distribution width Ratio (RBC) 16.1 % High 11.5-15.0 The [facility] Comment on above: Order Comment: No: D o not add to previous draw Performed By: #### 3 5200, 41735, 37307, 86901 #### [facility] [address] Hematocrit Volume Fraction (Bld) 38.7 % Normal 36.0-45.0 The [facility] Comment on above: Order Comment: No: D o not add to previous draw Performed By: #### 3 5200, 66692, 24611, 23835 #### [facility] [address] [place] [address], [facility] Hemoglobin mass conc (Bld) 12.5 g/dL Normal 12.0-15.0 The [facility] Comment on above: Order Comment: No: D o not add to previous draw Performed By: #### 3 5200, 11943, 96320, 59640 #### [facility] [address] [facility] [place] [address], [facility] IMMATURE GRANS 0.6 % Normal 0.0-1.0 [facility] Comment on above: Order Comment: No: D o not add to previous draw Performed By: #### 3 5200, 05862, 30085, 73627 #### [facility] [address] [facility] [place] [address], [facility] Lymphocytes #/vol (Bld) 1.3 10*3/uL Normal 1.2-4.0 The [facility] Comment on above: Order Comment: No: D o not add to previous draw Performed By: #### 3 5200, 90602, 20586, 63576 #### [facility] [address] [place] [address], [facility] Lymphocytes/100 WBC (Bld) 18.6 % Low 20.0-45.0 The [facility] Comment on above: Order Comment: No: D o not add to previous draw Performed By: #### 3 5200, 09428, 80214, 38783 #### [facility] [address] [place] [address], [facility] MCH Entitic mass (RBC) 29.9 pg Normal 27.0-33.0 Th e [facility] Comment on above: Order Comment: No: D o not add to previous draw Performed By: #### 3 5200, 78176, 04536, 56538 #### [facility] [address] [place] [address], [facility] MCHC mass conc (RBC) 32.3 g/dL Normal 32.0-35.0 The [facility] Comment on above: Order Comment: No: D o not add to previous draw Performed By: #### 3 5200, 78777, 00874, 20707 #### [facility] [address] [place] [address], [facility] MCV Entitic volume (RBC) 92.6 fL Normal 82.0-98.0 The [facility] Comment on above: Order Comment: No: D o not add to previous draw Performed By: #### 3 5200, 82140, 09857, 67809 #### [facility] [address] [place] [address], [facility] Monocytes #/vol (Bld) 0.5 10*3/uL Normal 0.1-1.0 Th e [facility] Comment on above: Order Comment: No: D o not add to previous draw Performed By: #### 3 5200, 94995, 82534, 28499 #### [facility] [address] [place] [address], [facility] MONOS 7.0 % Normal 5.0-12.0 The [facility] Comment on above: Order Comment: No: D o not add to previous draw Performed By: #### 3 5200, 68821, 56942, 44394 #### [facility] [address] [place] [address], [facility] Neutrophils/100 WBC (Bld) 70.5 % Normal 40.0-72.0 The [facility] Comment on above: Order Comment: No: D o not add to previous draw Performed By: #### 3 5200, 47021, 42614, 95635 #### [facility] [address] [place] Nucleated RBC/100 WBC Ratio (Bld) 0 % Normal 0-0 The [facility] Comment on above: Order Comment: No: D o not add to previous draw Performed By: #### 3 5200, 05909, 41982, 19173 #### [facility] [address] [place] [address], [facility] PLAT CNT 189 10*3/uL Normal 150-400 [facility] Comment on above: Order Comment: No: D o not add to previous draw Performed By: #### 3 5200, 67405, 82030, 55408 #### [facility] [address] [place] [address], [facility] RBC #/vol (Bld) 4.18 10*6/uL Normal 3.80-5.00 The [facility] Comment on above: Order Comment: No: D o not add to previous draw Performed By: #### 3 5200, 45940, 65354, 02714 #### [facility] [address] [place] [address], [facility] WBC #/vol (Bld) 6.71 10*3/uL Normal 4.00-10.60 [facility] Comment on above: Order Comment: No: D o not add to previous draw Performed By: #### 3 5200, 54420, 05261, 67295 #### [facility] [address] [place] [address], [facility] POC GLUCOSE LABon 03-11-2018 Glucose mass conc 128 mg/dL High 70-100 The [facility] Comment on above: Performed By: #### 3 5200, 23349, 57683, 72986 #### [facility] [address] [place] [id number], [facility] Glucose mass conc 100 mg/dL Normal 70-100 [facility] Comment on above: Performed By: #### 3 5200, 96149, 94898, 36600 #### [facility] [address] [facility]. [address] Glucose mass conc 158 mg/dL High 70-100 [facility] Comment on above: Performed By: #### 3 5200, 67691, 64297, 76638 #### [facility] [address] UFH HEPARIN ASSAYon 03-11-19 19 UNFRACTIONATED HEPARIN 0.35 IU/mL Normal 0.30-0.70 Th e [facility] Comment on above: Order Comment: Yes: Add to Previous draw if able Result Comment: Kathy roxaban and Apixaban will interfere with the anti Xa assay used to monitor UFH and LMWH. RESULTS CHECKED AND CALLED. ACCURATELY READ BACK BY ANANYA GUERRA RN AT 15:51 CLINICAL SIGNIFICANCE OF THE PTT RESULT IS QUESTIONABLE IN THE PRESENCE OF HEPARIN. Performed By: #### 3 5200, 56141, 40683, 73422 #### [facility] [address] [facility]. [address] UNFRACTIONATED HEPARIN 0.28 IU/mL Low 0.30-0.70 Th e [facility] Comment on above: Result Comment: Kathy roxaban and Apixaban will interfere with the anti Xa assay used to monitor UFH and LMWH. Performed By: #### 3 5200, 91303, 54308, 28613 #### [facility] [address] [facility]. [address] APTTon 03-10-2018 aPTT Coag time (Bld) 53.0 s High 25.0-35.0 [facility] Comment on above: Order Comment: No: [...] OF HEPARIN. Performed By: #### 3 5200, 27590, 66328, 74291 #### [facility] [address] [place] [address], [facility] aPTT Coag time (Bld) 47.7 s High 25.0-35.0 [facility] Comment on above: Order Comment: No: [...] THIS PURPOSE. Performed By: #### 3 5200, 30028, 71780, 59753 #### [facility] [address] [place] [address], [facility] aPTT Coag time (Bld) 68.2 s High 25.0-35.0 The [facility] Comment on above: Order Comment: No: [...] THIS PURPOSE. Performed By: #### 3 5200, 63387, 72139, 88825 #### [facility] [address] [place] [address], [facility] BASIC METABOLIC PANELon 02-0 Calcium mass conc 8.7 mg/dL Normal 8.6-10.3 The [facility] Comment on above: Order Comment: No: D o not add to previous draw Performed By: #### 3 5200, 62814, 24853, 91741 #### [facility] [address] [place] [address], [facility] Chloride molar conc 100 mmol/L Normal 98-107 The [facility] Comment on above: Order Comment: No: D o not add to previous draw Performed By: #### 3 5200, 62334, 44284, 74842 #### [facility] [address] [place] [address], [facility] CO2 molar conc 28 mmol/L Normal 21-31 The [facility] Comment on above: Order Comment: No: D o not add to previous draw Performed By: #### 3 5200, 84608, 34213, 20980 #### [facility] [address] [place] [address], [facility] Creatinine mass conc 0.57 mg/dL Low 0.60-1.20 [facility] Comment on above: Order Comment: No: D o not add to previous draw Performed By: #### 3 5200, 46357, 66596, 41817 #### [facility] [address] [place] [address], [facility] GFR/1.73 sq M predicted among blacks MDRD vol rate/area (S/P/Bld) mL/min/{1.73_m2} Normal >60 The [facility] Comment on above: Order Comment: No: D o not add to previous draw Result Comment: Calc ulation may not be valid for patients over 70 years Performed By: #### 3 5200, 27662, 78872, 84596 #### [facility] [address] [place] [address], [facility] GFR/1.73 sq M predicted among non-blacks MDRD vol rate/area (S/P/Bld) mL/min/{1.73_m2} Normal >60 The [facility] Comment on above: Order Comment: No: D o not add to previous draw Result Comment: Calc ulation may not be valid for patients over 70 years Performed By: #### 3 5200, 28996, 03017, 82751 #### [facility] [address] [place] [address], [place] Glucose mass conc 141 mg/dL High 70-100 The [facility] Comment on above: Order Comment: No: D o not add to previous draw Performed By: #### 3 5200, 10962, 36714, 40776 #### [facility] [address] [place] [id number], [facility] Potassium molar conc 4.0 mmol/L Normal 3.5-5.1 [facility] Comment on above: Order Comment: No: D o not add to previous draw Performed By: #### 3 5200, 02691, 79671, 21045 #### [facility] [address] [place] [address], [facility] Sodium molar conc 136 mmol/L Normal 136-145 [facility] Comment on above: Order Comment: No: D o not add to previous draw Performed By: #### 3 5200, 93417, 72248, 10084 #### [facility] [address] [place] [address], [facility] Urea nitrogen mass conc 12 mg/dL Normal 7-25 T [facility] Comment on above: Order Comment: No: D o not add to previous draw Performed By: #### 3 5200, 01261, 75857, 17780 #### [facility] [address] [place] [id number], [facility] CBC COMPLETE BLOOD COUNTon 0 - Erythrocyte distribution width Ratio (RBC) 16.1 % High 11.5-15.0 The [facility] Comment on above: Order Comment: No: D o not add to previous draw Performed By: #### 3 5200, 75986, 45280, 69210 #### [facility] [address] [place] [address], [facility] Hematocrit Volume Fraction (Bld) 39.4 % Normal 36.0-45.0 [facility] Comment on above: Order Comment: No: D o not add to previous draw Performed By: #### 3 5200, 34543, 38148, 09974 #### [facility] [address] Hemoglobin mass conc (Bld) 12.9 g/dL Normal 12.0-15.0 [facility] Comment on above: Order Comment: No: D o not add to previous draw Performed By: #### 3 5200, 29526, 96001, 43714 #### [facility] [address] [place] [address], [facility] MCH Entitic mass (RBC) 30.0 pg Normal 27.0-33.0 Th e [facility] Comment on above: Order Comment: No: D o not add to previous draw Performed By: #### 3 5200, 76676, 14612, 73494 #### [facility] [address] [facility] [address] MCHC mass conc (RBC) 32.7 g/dL Normal 32.0-35.0 [facility] Comment on above: Order Comment: No: D o not add to previous draw Performed By: #### 3 5200, 55515, 88860, 73747 #### [facility] [address] [place] [address], [facility] MCV Entitic volume (RBC) 91.6 fL Normal 82.0-98.0 [facility] Comment on above: Order Comment: No: D o not add to previous draw Performed By: #### 3 5200, 42546, 78477, 63826 #### [facility] [address] [facility] [place] [address], [facility] Nucleated RBC/100 WBC Ratio (Bld) 0 % Normal 0-0 [facility] Comment on above: Order Comment: No: D o not add to previous draw Performed By: #### 3 5200, 75861, 81879, 81059 #### [facility] [address] [place] [id number], [facility] PLAT CNT 200 10*3/uL Normal 150-400 [facility] Comment on above: Order Comment: No: D o not add to previous draw Performed By: #### 3 5200, 82255, 89409, 95387 #### [facility] [address] [place] [address], [facility] RBC #/vol (Bld) 4.30 10*6/uL Normal 3.80-5.00 [facility] Comment on above: Order Comment: No: D o not add to previous draw Performed By: #### 3 5200, 18138, 85743, 22523 #### [facility] [address] [place] [address], [facility] WBC #/vol (Bld) 7.21 10*3/uL Normal 4.00-10.60 [facility] Comment on above: Order Comment: No: D o not add to previous draw Performed By: #### 3 5200, 39513, 80318, 83003 #### [facility] [address] [facility] [address] UFH HEPARIN ASSAYon 03-10-19 19 UNFRACTIONATED HEPARIN 0.33 IU/mL Normal 0.30-0.70 Th e [facility] Comment on above: Result Comment: Kathy roxaban and Apixaban will interfere with the anti Xa assay used to monitor UFH and LMWH. UFH ADDED PER PROTOCOL Performed By: #### 3 5200, 98944, 80048, 86195 #### [facility] [address] UNFRACTIONATED HEPARIN 0.89 IU/mL High 0.30-0.70 Th e [facility] Comment on above: Order Comment: No: D o not add to previous draw Result Comment: Kathy roxaban and Apixaban will interfere with the anti Xa assay used to monitor UFH and LMWH. Performed By: #### 3 5200, 12376, 16378, 14978 #### [facility] [address] APTTon 03-09-2018 aPTT Coag time (Bld) 67.5 s High 25.0-35.0 The [facility] Comment on above: Order Comment: Yes: [...] HEPARIN. Performed By: #### 8 5123 #### [facility] [address] [place] [address], [facility] aPTT Coag time (Bld) 58.4 s High 25.0-35.0 [facility] Comment on above: Order Comment: Yes: [...] PURPOSE. Performed By: #### 8 5123 #### [facility] [address] [place] [address], [facility] aPTT Coag time (Bld) 89.8 s Critically high 25.0-35.0 The [facility] Comment on above: Order Comment: Yes: [...] 14:02 Performed By: #### 8 5123 #### [facility] [address] [place] [address], [place] aPTT Coag time (Bld) 80.2 s Critically high 25.0-35.0 The [facility] Comment on above: Order Comment: Yes: [...] PURPOSE. Performed By: #### 8 5123 #### [facility] [address] aPTT Coag time (Bld) 47.3 s High 25.0-35.0 [facility] Comment on above: Order Comment: No: [...] THIS PURPOSE. Performed By: #### 5 6101, 76419 #### [facility] [address] [facility]. [address] BNP (B-TYPE NATRIURETIC PEPT ISSA)on 03-09-2018 Natriuretic peptide B mass conc (Bld) 596 pg/mL High 0-100 The [facility] Comment on above: Order Comment: Yes: Add to Previous draw if able Result Comment: Give n the appropriate clinical setting a BNP result of >100 pg/mL indicates congestive heart failure. Performed By: #### 8 5123 #### [facility] [address] [facility]. [address] CBC COMPLETE BLOOD COUNTon 0 03-09-2018 Erythrocyte distribution width Ratio (RBC) 16.1 % High 11.5-15.0 [facility] Comment on above: Order Comment: Yes: Add to Previous draw if able Performed By: #### 8 5123 #### [facility] [address] Hematocrit Volume Fraction (Bld) 42.2 % Normal 36.0-45.0 [facility] Comment on above: Order Comment: Yes: Add to Previous draw if able Performed By: #### 8 5123 #### [facility] [address] [place] [id number], [facility] Hemoglobin mass conc (Bld) 13.7 g/dL Normal 12.0-15.0 [facility] Comment on above: Order Comment: Yes: Add to Previous draw if able Performed By: #### 8 5123 #### [facility] [address] [place] [address], [facility] MCH Entitic mass (RBC) 30.0 pg Normal 27.0-33.0 [facility] e [facility] Comment on above: Order Comment: Yes: Add to Previous draw if able Performed By: #### 8 5123 #### [facility] [address] MCHC mass conc (RBC) 32.5 g/dL Normal 32.0-35.0 [facility] Comment on above: Order Comment: Yes: Add to Previous draw if able Performed By: #### 8 5123 #### [facility] [address] MCV Entitic volume (RBC) 92.5 fL Normal 82.0-98.0 [facility] Comment on above: Order Comment: Yes: Add to Previous draw if able Performed By: #### 8 5123 #### [facility] [address] Nucleated RBC/100 WBC Ratio (Bld) 0 % Normal 0-0 [facility] Comment on above: Order Comment: Yes: Add to Previous draw if able Performed By: #### 8 5123 #### [facility] [address] [place] [address], [facility] PLAT CNT 208 10*3/uL Normal 150-400 [facility] Comment on above: Order Comment: Yes: Add to Previous draw if able Performed By: #### 8 5123 #### [facility] [address] [place] [address], [facility] RBC #/vol (Bld) 4.56 10*6/uL Normal 3.80-5.00 The [facility] Comment on above: Order Comment: Yes: Add to Previous draw if able Performed By: #### 8 5123 #### [facility] [address] [place] [address], [facility] WBC #/vol (Bld) 9.26 10*3/uL Normal 4.00-10.60 [facility] Comment on above: Order Comment: Yes: Add to Previous draw if able Performed By: #### 8 5123 #### [facility] [address] [place] [address], [facility] Erythrocyte distribution width Ratio (RBC) 15.9 % High 11.5-15.0 [facility] Comment on above: Order Comment: Yes: Add to Previous draw if able Performed By: #### 5 0608 #### [facility] [address] [place] [address], [facility] Hematocrit Volume Fraction (Bld) 38.2 % Normal 36.0-45.0 [facility] Comment on above: Order Comment: Yes: Add to Previous draw if able Performed By: #### 5 0608 #### [facility] [address] [place] [address], [facility] Hemoglobin mass conc (Bld) 12.4 g/dL Normal 12.0-15.0 [facility] Comment on above: Order Comment: Yes: Add to Previous draw if able Performed By: #### 5 0608 #### [facility] [address] [place] [id number], [facility] MCH Entitic mass (RBC) 29.5 pg Normal 27.0-33.0 Th e [facility] Comment on above: Order Comment: Yes: Add to Previous draw if able Performed By: #### 5 0608 #### [facility] [address] MCHC mass conc (RBC) 32.5 g/dL Normal 32.0-35.0 [facility] Comment on above: Order Comment: Yes: Add to Previous draw if able Performed By: #### 5 0608 #### [facility] [address] MCV Entitic volume (RBC) 91.0 fL Normal 82.0-98.0 [facility] Comment on above: Order Comment: Yes: Add to Previous draw if able Performed By: #### 5 0608 #### [facility] [address] [facility] [address] Nucleated RBC/100 WBC Ratio (Bld) 0 % Normal 0-0 [facility] Comment on above: Order Comment: Yes: Add to Previous draw if able Performed By: #### 5 0608 #### [facility] [address] [facility] [address] PLAT CNT 193 10*3/uL Normal 150-400 [facility] Comment on above: Order Comment: Yes: Add to Previous draw if able Performed By: #### 5 0608 #### [facility] [address] RBC #/vol (Bld) 4.20 10*6/uL Normal 3.80-5.00 [facility] Comment on above: Order Comment: Yes: Add to Previous draw if able Performed By: #### 5 0608 #### [facility] [address] [place] [address], [facility] WBC #/vol (Bld) 8.57 10*3/uL Normal 4.00-10.60 [facility] Comment on above: Order Comment: Yes: Add to Previous draw if able Performed By: #### 5 0608 #### [facility] [address] [place] [address], [facility] ELECTROLYTE PANELon 03-09-19 19 Chloride molar conc 98 mmol/L Normal 98-107 [facility] Comment on above: Order Comment: Yes: Add to Previous draw if able Performed By: #### 3 5200, 96406, 62356, 27618 #### [facility] [address] [place] [address], [facility] CO2 molar conc 26 mmol/L Normal 21-31 The [facility] Comment on above: Order Comment: Yes: Add to Previous draw if able Performed By: #### 3 5200, 05551, 75219, 27218 #### [facility] [address] [place] [address], [facility] Potassium molar conc 4.0 mmol/L Normal 3.5-5.1 [facility] Comment on above: Order Comment: Yes: Add to Previous draw if able Performed By: #### 3 5200, 64567, 03779, 76171 #### [facility] [address] [place] [address], [facility] Sodium molar conc 135 mmol/L Low 136-145 [facility] Comment on above: Order Comment: Yes: Add to Previous draw if able Performed By: #### 3 5200, 55711, 42501, 49933 #### [facility] [address] [place] [address], [facility] MAGNESIUM BLOODon 03-09-2018 Magnesium mass conc 1.2 mg/dL Low 1.9-2.7 [facility] Comment on above: Order Comment: Yes: Add to Previous draw if able Performed By: #### 3 5200, 49546, 93446, 69261 #### [facility] [address] [place] [address], [facility] PORTABLE CHEST 1 VIEWon PORTABLE CHEST 1 VIEW [facility] Department of Radiology [address] [place] [id number] Patient Name: JACQUELYN KAPLAN : 1945 Sex: F Age: Race: White Pt. Location: [id number] Patient Status: I Ordered Date: 03/09/2018 2:15:00 [...] findings. Electronically signed by:Peña Díaz. Transcribed by: [email or web address], User Resident: BETH MILTON Electronically Signed by: PEÑA DÍAZ @ 03/09/2018 01:31 PM I personally read this/these film(s) with this resident Normal The [facility] Comment on above: Order Comment: Yes: Add to Previous draw if able PROTHROMBIN TIMEon INR Coag RelTime (PPP) 1.78 {INR} High 0.91-1.16 Th e [facility] Comment on above: Result Comment: ACCC [...] 1995;108:231S-246S. Performed By: #### 8 5123 #### [facility] [address] Prothrombin time (PT) Coag time (PPP) 20.8 s High 12.3-14.8 The [facility] Comment on above: Result Comment: ALL RESULTS MUST BE INTERPRETED WITH RESPECT TO BLOOD DRAWING ARTIFACT OR DILUTION ERROR OF ANTICOAGULANT AT THE TIME OF SAMPLING. Performed By: #### 8 5123 #### [facility] [address] [place] [address], [facility] INR Coag RelTime (PPP) 2.82 {INR} High 0.91-1.16 Th e [facility] Comment on above: Order Comment: No: [...] CHEST 1995;108:231S-246S. Performed By: #### 5 6101, 75085 #### [facility] [address] Prothrombin time (PT) Coag time (PPP) 29.9 s High 12.3-14.8 The [facility] Comment on above: Order Comment: No: D o not add to previous draw Result Comment: ALL RESULTS MUST BE INTERPRETED WITH RESPECT TO BLOOD DRAWING ARTIFACT OR DILUTION ERROR OF ANTICOAGULANT AT THE TIME OF SAMPLING. Performed By: #### 5 6101, 23019 #### [facility] [address] TROPONIN-Ion 03-09-2018 Troponin I.cardiac mass conc 0.01 ng/mL Normal 0.00-0.04 The [facility] Comment on above: Order Comment: No: D o not add to previous draw Result Comment: REFE RENCE RANGES: 0.00 - 0.04 ng/ml NORMAL 0.05 - 0.50 ng/ml INDETERMINATE > 0.50 ng/ml CONSISTENT WITH AN M.I. Performed By: #### 3 5200 #### [facility] [address] [place] [address], [facility] Troponin I.cardiac mass conc 0.01 ng/mL Normal 0.00-0.04 [facility] Comment on above: Order Comment: No: D o not add to previous draw Result Comment: REFE RENCE RANGES: 0.00 - 0.04 ng/ml NORMAL 0.05 - 0.50 ng/ml INDETERMINATE > 0.50 ng/ml CONSISTENT WITH AN M.I. Performed By: #### 3 5200 #### [facility] [address] [place] [address], [facility] Troponin I.cardiac mass conc 0.01 ng/mL Normal 0.00-0.04 [facility] Comment on above: Order Comment: No: D o not add to previous draw Result Comment: REFE RENCE RANGES: 0.00 - 0.04 ng/ml NORMAL 0.05 - 0.50 ng/ml INDETERMINATE > 0.50 ng/ml CONSISTENT WITH AN M.I. Performed By: #### 3 5200, 42483, 31265, 41932 #### [facility] [address] TSH3on 03-09-2018 TSH 3RD GENERATION 3.21 uIU/mL Normal 0.34-5.60 [facility] Comment on above: Order Comment: Yes: Add to Previous draw if able Performed By: #### 3 5200, 91996, 50267, 91068 #### [facility] [address] [facility] [address] UFH HEPARIN ASSAYon 03-09-19 19 UNFRACTIONATED HEPARIN >1.00 Critically high 0.30-0.7 0 The [facility] Comment on above: Result Comment: [place] roxaban and Apixaban will interfere with the anti Xa assay used to monitor UFH and LMWH. Performed By: #### 8 5123 #### [facility] [address] [place] [address], [facility] UNFRACTIONATED HEPARIN >1.00 Critically high 0.30-0.7 0 The [facility] Comment on above: Order Comment: Yes: Add to Previous draw if able Result Comment: Kathy roxaban and Apixaban will interfere with the anti Xa assay used to monitor UFH and LMWH. UFH = 2.28. UFH MAY BE ELEVATED IN THE PRESENCE OF OTHER ANTI-XA INHIBITORS. Performed By: #### 8 5123 #### [facility] [address] UNFRACTIONATED HEPARIN >1.00 Critically high 0.30-0.7 0 The [facility] Comment on above: Result Comment: Kathy [...] 2.62 Performed By: #### 8 5123 #### [facility] [address] Vital Signs Date Time Vital Sign Value Performing Clinician Leigh weiss 10-27-2022 12:14-0400 Diastolic blood pressure 53 mm[Hg] MD Gumaro Ordonez Work Phone: [facility] 10-27-2022 12:14-0400 Heart rate 73 /min MD Gumaro Ordonez Work Phone: [facility] 10-27-2022 12:14-0400 Respiratory rate 18 /min MD Gumaro Ordonez Work Phone: [facility] 10-27-2022 12:14-0400 SaO2% (BldA) [Mass fraction] 95 % MD Gumaro Ordonez Work Phone: [facility] 10-27-2022 12:14-0400 Systolic blood pressure 128 mm[Hg] MD Gumaro Ordonez Work Phone: [facility] 10-27-2022 10:54-0400 Body height 160.02 cm MD Gumaro Ordonez Work Phone: [facility] 10-27-2022 [id number] Body weight 122.46 kg MD Gumaro Ordonez Work Phone: [facility] Encounters Encounter Date Encounter Type Care Provider Facility Start: 01-12-2023 End: 01-12-2023 ambulatory [facility] Start: 12-04-2022 End: 12-04-2022 ambulatory Joe Cosme Facility:[facility] Start: 12-04-2022 End: 12-04-2022 ambulatory MD Gumaro Ordonez Work Phone: [facility] Work Phone: Start: 12-04-2022 End: 12-04-2022 Patient encounter procedure MD Gumaro Ordonez Work Phone: [facility] Work Phone: Start: 11-14-2022 End: 11-14-2022 ambulatory [facility] Start: 10-27-2022 End: 10-27-2022 ambulatory Joe Cosme Facility:[facility] Start: 10-27-2022 End: 10-27-2022 Admission to same day surgery center MD Gumaro Ordonez Work Phone: [facility] Work Phone: Start: 10-18-2022 End: 10-18-2022 ambulatory [facility] Start: 10-12-2022 ambulatory Mikey NIELSON Facility:[facility] Start: 10-11-2022 End: 10-15-2022 ambulatory Mikey NIELSON Facility:[id number] Start: 09-22-2022 End: 09-22-2022 ambulatory [facility] Start: 07-17-2022 End: 07-17-2022 ambulatory DEN SILVERMANVIPIN [facility] Start: 05-01-2022 End: 05-02-[address] GUMARO ORDONEZ Facility:[facility] Start: 03-22-2022 End: 03-23-[address] GUMARO ORDONEZ Facility:[facility] Start: 10-31-2021 End: 11-01-[address] GUMARO ORDONEZ Facility:[facility] Start: 09-28-2021 End: 09-29-2021 ambulatory ROSA Wadsworth ERASMOLEO Facility: Start: 03-18-2018 End: 03-24-2018 Evaluation and management of inpatient PHAM GABRIEL Facility:[facility] Start: 03-09-2018 End: 03-13-2018 Evaluation and management of inpatient STEPHANIE CARBALLO Facility:[facility] Procedures Date Procedure Procedure Detail Performing Clinician Start: 12-04-2022 Capsule endoscopy MD Gumaro Ordonez Work Phone: Start: 10-27-2022 Esophagogastroduodenoscopy MD Gumaro Jiang Work Phone: Start: 03-12-2018 [facility] Cardiac Rhythm, Single MOSHRIK ABD ALAMIR [...] Date Care Activity Detail Author Start: 12-04-2022 [facility] Start: 10-27-2022 [facility] Patient Education Colon polyps H emorrhoids (DC) Diverticulosis (DC) Hiatal Hernia (DC) [facility] Work Phone: Payers Date Payer Category Payer Self-pay 1958 Medicare [id number] 1958 Unknown [id number] 1945 Unknown [id number] 2.16.8 [id number] 1945 Unknown [id number] 2.16.8 [id number] 1945 Unknown [id number] 2.16.84 [id number] 1945 Unknown [id number] 2.16.84 [id number] 1945 Unknown [id number] 2.16.84 [id number] 1945 Unknown [id number] 2.16.84 [id number] 1945 Unknown [id number] 2.16.8 [id number] Unknown Carmen BC/TIMO [id number] Unknown [id number] 2.16.8 [id number] Unknown [id number] 2.16.8 [id number] Social History Date Type Detail Facility Start: [facility]27[facility]2022 [facility] Start: 1945 Sex Assigned At Female F [facility] Goals Date Patient Goal Desired Activity /State Clinical Notes 09-29-2021 to 01-12-2023 Note Date & Type Note Facility 01-12-2023 Note [facility] Subjective Jacquelyn Kaplan is a [...] status post TAVR in May 2018 at [facility]. This was using a 23 mm [place] [...] She had a discussion with her primary tubing oiler Dr. Burnett and they agreed that left [...] Rfl: coenzyme Q-10 (more content not included)... [facility] 11-29-2022 Note I called and spoke t o patient. Explained the LAAO procedure, pre/post-procedure imaging, post-procedure medications, risks and benefits. She would like to proceed with the procedure. She is pending a video capsule study. Please schedule her for an appt with Dr. Carr for further discussion. [facility] 11-14-2022 Note [facility] CARDIOLOGY PROGR ESS [...] and she p (more content not included)... [facility] 11-14-2022 Note Patient here for 4 w rincon follow up GI visit. She underwent upper and lower scopes at [facility]. Per patient, Dr. Cosme cleared her to resume Xarelto, but she has not done so yet. She wanted to discuss with Dr. Burnett first. Still denies chest pain, SOB, palpitations, and bleeding. Patient expressed interest in the Watchman/Amulet device. Review of Systems Musculoskeletal: Positive for muscle weakness. All other systems reviewed and are negative. [facility] 10-18-2022 Note [facility]TP CARDIOLOGY PROGR ESS [...] daily weights, I (more content not included)... [facility] 10-18-2022 Note Patient here for fol low up [facility] discharge for GI bleed. She takes Xarelto for afib, but this was stopped, along with aspirin. Chest tightness and SOB has resolved and she's feeling much better. Doing more walking throughout her house. Denies lightheadedness and falls. Review of Systems Musculoskeletal: Positive for muscle weakness. All other systems reviewed and are negative. [facility] 10-11-2022 Note i [facility] 09-22-2022 Note [facility] Subjective Jacquelyn Kaplan is a [...] status post TAVR in May 2018 at [facility]. This was using a 23 mm [place] [...] , Rfl: Recent (more content not included)... [facility] 07-17-2022 Note [facility]TP CARDIOLOGY PROGR ESS [...] provided. Patient verbal (more content not included)... [facility] 07-17-2022 Note Patient here for 6 m o follow up PAF, aortic valve disorder, CHF, carotid artery stenosis, and hypertension. She had echo in Feb 2022 at [facility]. Denies chest pain, SOB, palpitations, and bleeding on Eliquis. Had routine labs in April 2022. Review of Systems Respiratory: Positive for cough. Musculoskeletal: Positive for arthritis, back pain, joint pain, muscle weakness and myalgias. Neurological: Positive for loss of balance. All other systems reviewed and are negative. [facility] 03-22-2022 Note PROCEDURE: XR ANKLE LT [...] authenticated by: FABRICIO BANKS Date: 2022-03-22 10:42 [facility] 09-29-2021 Note PROCEDURE: XR ANKLE LT [...] authenticated by: GENE BERMUDEZ Date: 2021-09-29 10:11 [facility] Evaluation note No assessment information [facility] Work Phone: Summary Purpose Family History No Family History Records Found Relationship Condition Age at Onset Recorded Date/T oliver Not Specified Malignant neoplasm of pancreas Unknown father Malignant neoplasm of kidney Unknown Malignant neoplasm of liver Unknown Advance Directives No Advanced Directives Records Found Advance Directive Response Recorded Date/ Time Advance Directives No October 10:12am Hospital Course Note MR#: [id number] [facility] Pt. Name: Jacquelyn Kaplan Admitted: 03/09/2018 [...] (more content not included)... Note MR#: [id number] [facility] Pt. Name: Jacquelyn Kaplan Admitted: 03/18/2018 [...] was no chest pain. She went to [facility], was found to have elevated BNP. [...] section and content) DATE CREATED AUTHOR 03/26/2018 [facility] DATE CREATED AUTHOR AUTHOR'S ORGANIZ ATION 05/10/2022 [facility] DATE CREATED AUTHOR AUTHOR'S ORGANIZ ATION 11/08/[address] [facility] DATE CREATED AUTHOR AUTHOR'S ORGANIZ ATION 01/15/2023 [facility] DATE CREATED AUTHOR AUTHOR'S ORGANIZ ATION 01/17/[address] [facility] Care Teams (unrecognized sec tion and content) [...] BE BASED ON THE PRIMARY CLINICAL RECORDS. [employer] provides no warranty or guarantee of the accuracy or completeness of information in this document.
== END 2023-02-19 09:46 | disposition home or self-care (01) ==
LOC: WC 09:45
PROVIDERS: PCP Family Medicine; Visit Provider Physician Assistant
DX: E11.621 Type 2 diabetes mellitus with foot ulcer (principal); L97.428 Non-pressure chronic ulcer of left heel and midfoot with other specified severity
CPT/HCPCS: G0463

== ENCOUNTER 2023-03-06 10:24 | Outpatient (OUT) | payer MEDICARE, SELFPAY ==
--- OUTSIDE RECORDS SUMMARY | 2023-03-06 10:28 | XMS_ITS | CCD ---
Author Name Unknown Address [id number] [place] [address] Organization [facility] Care Team Providers Care Die Storage Worker Name Role Phone STEPHANIE CARBALLO Referring Unavailable SELF, REFERRED Primary Care Unavailable RAGHAVENDRA PERRY Admitting Unavailable PHAM SIMMONS Attending Unavailable [place] Procedure Practitioner Unavailab OMEGA Ramirez Surgeon Unavailable [place] Procedure Practitioner Unavailab NATA Tinoco ABD Surgeon Unavailable PHAM GABRIEL Admitting Unavailable BERNADETTEPHAM Attending Unavailable SELF, REFERRED Primary Care Unavailable SELF, REFERRED Referring Unavailable NADEREClari, DR GUMARO Fernandes Primary Care Unavailable NADERER, [...] NADERER, DR GUMARO Fernandes Primary Care Unavailable [place], DR FABRICIO Novak Consulting Unavailable HIGHLANDER, ROSA Wadsworth Admitting Unavailable HIGHLANDER, ROSA Wadsworth Attending Unavailable HIGHLANDER, PETER D Consulting Unavailable Mikey NIELSON Attending Unavailable MD Joe Cosme Attending Provider MD Gumaro Ordonez Primary Care Provider [phone] Joe Cosme Attending Unavailable Gumaro Ordonez Primary Care Unavailable Joe Cosme Admitting Unavailable Joe Cosme Attending Unavailable Gumaro Ordonez Primary Care Unavailable Joe Cosme Admitting Unavailable MOUKARBEL, JOLENE Admitting Unavailable JOLENE CARR Attending Unavailable LILLY, JOLENE Attending Unavailable DEN BURNETT Attending Unavailable JOLENE CARR Attending Unavailable JOLENE CARR Referring Unavailable JOLENE CARR Referring Unavailable JOLENE CARR Referring Unavailable DEN BURNETT Attending Unavailable DEN BURNETT Attending Unavailable Allergies Allergy Classification Reported Allergen(s) Allergy Type Date of Onset Reaction(s) Facility (3 sources) Sulfonamides (Antibiotic); Translations: [SULFA (SULFONAMIDE ANTIBIOTICS)] Drug allergy (disorder) 07-11-2013 [facility] Repository (1 source) Sulfonamides (Antibiotic) Drug allergy (disorder) 10-27-2022 [facility] Repository Medications Current Medications Medication [...] disease (1 source) Atherosclerotic heart disease of [place] coronary artery without angina pectoris; Translations: [ATHSCL HEART DISEASE OF [place] CORONARY ARTERY W/O ANG PCTRS] Onset: 9 [...] 9 Chronic Other aftercare (1 source) Other jail (current) drug therapy; Translations: [OTH [facility] CURRENT DRUG THERAPY] Onset: 3 Episodic Other aftercare (1 source) snf (current) use of anticoagulants; Translations: [long term care pharmacist (current) use of anticoagulants] Onset: 3 Episodic [...] fibrillation; Translations: [Other persistent atrial fibrillation] Onset: 4 Past or Other Problems Problem Classification Problem Date Documented Da te Episodic/Chronic Other non-traumatic joint disorders (4 sources) Pain in left ankle and joints of left foot; Translations: [PAIN IN LEFT ANKLE] Onset: 09-28-2021 Episodic Results Test Name Value Interpretation Reference Range Facility [facility] 02-27-2023 History Of Present Illness Jacquelyn Kaplan is a 77 y.o. female presenting for BRIGIDO. This is a 77-year-old woman with history of aortic valve stenosis status post TAVR in May 2018 using a [place] HOLLIS 23 mm balloon expandable valve. She has been noted to have elevated velocities across the TAVR prosthesis. She is currently in Persistent atrial fibrillation, she needs long-term anticoagulation therapy to reduce the risk of stroke given elevated VGL3QD7-HTSg score of 6 due to age, gender, hypertension, diabetes, and heart failure. she is not a good candidate for long-term anticoagulation due to history of gastrointestinal bleeding. We discussed left atrial appendage closure procedure at the clinic visit of 01/12/2023 as an alternative to reduce the risk of stroke. she would like to proceed. She presents today for the BRIGIDO and possible cardioversion and assessment of the TAVR. Past Medical History She has a past medical history of Atrial fibrillation ([facility]), CHF (congestive heart failure) ([facility]), Diabetes mellitus ([facility]), Heart valve disease, Hypertension, PVD (peripheral vascular disease) ([facility]), and Sleep apnea. Surgical History She has a past surgical history that includes Cardiac valve replacement; Cardiac catheterization; Ankle arthroplasty; and Cardioversion. Social History She reports that she has never smoked. She has never used smokeless tobacco. She reports that she does not currently use alcohol. No history on file for drug use. Allergies Sulfa (sulfonamide antibiotics) Medications Medications Prior to Admission Medication Sig Dispense Refill Last Dose Alpha tocopherol (Vitamin E) 200 unit capsule Take 400 Units by mouth in the morning. 02/26/2023 amiodarone (Pacerone) 200 mg tablet Take 1 tablet (200 mg) by mouth in the morning. 90 tablet 3 02/26/2023 amitriptyline (Elavil) 25 mg tablet Take 1 tablet by mouth at bedtime. 02/26/2023 aspirin 81 mg EC tablet Take 1 tablet every day by oral route. 02/26/2023 atorvastatin (Lipitor) 40 mg tablet Take 1 tablet every day by oral route for 30 days. 02/26/2023 calcium citrate-vitamin D3 (Citracal+D) 315 mg-5 mcg (200 unit) tablet Take 1 tablet by mouth in the morning and 1 tablet in the evening. 02/26/2023 carvedilol (Coreg) 6.25 mg tablet Take 1 tablet (6.25 mg) by mouth with breakfast and with evening meal. 180 tablet 3 02/26/2023 coenzyme Q-10 100 mg capsule Take 100 mg by mouth 1 (one) time each day at the same time. 02/26/2023 furosemide (Lasix) 40 mg tablet Take 1 tablet twice a day by oral route for 30 days. 02/26/2023 levothyroxine (Tirosint) 125 mcg capsule Take by mouth before breakfast. 02/26/2023 metFORMIN XR (Glucophage-XR) 500 mg 24 hr tablet Take 500 mg by mouth in the morning and at bedtime. 02/26/2023 potassium chloride CR (Klor-Con) 10 mEq ER tablet Take 1 tablet every day by oral route. 02/26/2023 sertraline (Zoloft) 50 mg tablet Take 50 mg by mouth in the morning. 02/26/2023 spironolactone (Aldactone) 25 mg tablet Take 1 tablet every day by oral route for 30 days. 02/26/2023 Xarelto 20 mg tablet Take 20 mg by mouth in the morning. 02/26/2023 Review of Systems Cardiovascular: Positive for leg swelling. Musculoskeletal: Positive for muscle weakness. All other systems reviewed and are negative. Physical Exam Constitutional: Appearance: She is well-developed. [...] Behavior: Behavior is cooperative. Judgment: Judgment normal. Last Recorded Vitals Blood pressure 114/80, pulse (!) 114, resp. rate 17, SpO2 95 %. Relevant Results ECG 01/12/2023: Atrial fibrillation, left axis deviation, right bundle branch block, inferior infarct a (more content not included)... [facility] NURSNOTEon 02-27-2023 NURSNOTE RN educated pt on d/c instructions. RN encouraged pt to voice any questions or concerns. Pt verbalizes no questions or concerns at this time. Pt was wheeled off of unit with all of belongings. Normal [facility] NURSNOTE Bedside swallow study completed and passed. [facility] Orders Onlyon 02-22-2023 Orders Only [id number] Jacquelyn Kaplan 1945 F Date Provider Department Center 02/22/2023 GABRIEL HARTLEY CARD [facility] Family History Problem Relation Age of Onset Aortic stenosis Father Other Father Family Status - Relation Status Age at Father [facility] Office Visiton 01-12-2023 Follow-up visit [id number] Jacquelyn Kaplan 1945 F Date Provider Department Center 01/12/2023 Minal-ALMAHARIMAMIE JOLENE EDEN [facility] Family History Problem Relation Age of Onset Aortic stenosis Father Other Father Family Status - Relation Status Age at Father Level of Service:06757 [place] OFFICE/OUTPATIENT ESTABLISHED HIGH MDM 40-54 MIN Normal [facility] Office Visiton 11-14-2022 Follow-up visit [id number] Jacquelyn Kaplan 1945 F Date Provider Department Center 11/14/2022 3848-DEN BURNETT EDEN [facility] Family History Problem Relation Age of Onset Aortic stenosis Father Other Father Family Status - Relation Status Age at Father Level of Service:58893 [place] OFFICE/OUTPATIENT ESTABLISHED LOW MDM 20-29 MIN Normal [facility] Glucose Glucometer (BldC) [M ass/Vol]Ordered By: Joe Cosme on 10-27-2022 Glucose [Mass/Vol] 220 mg/dL [facility] Comment on above: Random Glucose Refer ence Range is dependent on time and content of last meal. Glucose of more than 200 mg/dL in a nonstressed, ambulatory subject supports the diagnosis of Diabetes Mellitus. Glucose Poct Glucometerson 0 10-27-2022 Commemt1 Glu2: Cleaned Meter Normal [facility] Comment on above: Result Comment: PERF ORMED BY: [facility] [address] [place] [address] PATHOLOGIST GEOLOGY SCIENTIST NORMA MONTANA M.D. Performed By: #### G LULS #### Point of Care testing , Glucose [Mass/Vol] 220 mg/dL Normal [facility] Comment on above: Result Comment: [place] Glucose Reference Range is dependent on time and content of last meal. Glucose of more than 200 mg/dL in a nonstressed, ambulatory subject supports the diagnosis of Diabetes Mellitus. Performed By: #### G LULS #### Point of Care testing , Ryan 10-27-2022 L Specimen: [id number] Received: 10/27/22 Status: TRAVIS Yessenia Num: [id number] Spec Type: Surgical Subm Dr: Joe Cosme MD Tissues: A Colon Biopsy (ASCND COL) Procedures: HE/2, Gross/Micro L4 Age/ Patient Sex Location Account Attending Physician Jacquelyn Kaplan 77/F [id number] Joe Cosme MD SPEC NUM: [id number] RECD: 10/27/22 STATUS: TRAVIS YESSENIA NUM: [id number] DELMY: 10/27/22- [place] DR: Joe Cosme MD ENTERED: 10/27/[address] [facility] [address]: SPEC TYPE: Surgical DEPT: S ENTERED BY: [id number] RECV BY: [id number] ORDERED: YOSELIN Gross/Micro L4 ORDERED: YOSELIN Gross/Micro L4 Pathological Diagnosis Ascending colon polyp [...] microscopic examination confirms the diagnosis. CPT Codes 74450 Specimen: [id number] Received: 10/27/22 Status: TRAVIS Casas Num: [id number] Spec Type: Surgical Subm Dr: Joe Cosme MD Tissues: A Colon Biopsy (ASCND COL) Procedures: YOSELIN, Gross/Micro L4 Patient: Jacquelyn Kaplan [id number] (Continued) Signed (signatur e on file) Akshat-Ariel Dominguez MD 10/30/22 1331 Normal [facility] No Panel InformationOrdered By: Joe Cosme on 10-27-2022 Bedside Glucose Comment Glu2: cleaned meter [facility] Office Visiton 10-18-2022 Follow-up visit [id number] Jacquelyn Kaplan 1945 F Date Provider Department Center 10/18/2022 3848-DEN BURNETT EDEN [facility] Family History Problem Relation Age of Onset Aortic stenosis Father Other Father Family Status - Relation Status Age at Father Level of Service:76427 [place] OFFICE/OUTPATIENT ESTABLISHED MOD MDM 30-39 MIN Normal [facility] Outside Colonoscopyon 2022 Outside Colonoscopy [id number] B#1.00CD:127 Normal [facility] Lab Reportson 10-16-2022 Lab Reports [id number] 6A#1.00CD:127 Normal [facility] Lab Reports [id number] D5#1.00CD:127 Normal [facility] Lab Reports [id number] 6#1.00CD:127 Normal [facility] Lab Reports [id number] 5#1.00CD:127 Normal [facility] Outside Colonoscopyon 2022 Outside Colonoscopy [id number] 2#1.00CD:127 Normal [facility] Consultation Noteon 10-13-19 Consultation Note [id number] 7F#1.00CD:127 Normal [facility] Consultation Note [id number] 7#1.00CD:127 Normal [facility] Lab Reportson 10-12-2022 Lab Reports [id number] 1#1.00CD:127 Normal [facility] Office Visiton 09-22-2022 Follow-up visit [id number] Jacquelyn Kaplan 1945 F Date Provider Department Center 09/22/2022 367-JOLENE CARR EDEN [facility] Family History Problem Relation Age of Onset Aortic stenosis Father Other Father Family Status - Relation Status Age at Father Level of Service:34888 [place] OFFICE/OUTPATIENT ESTABLISHED MOD MDM 30-39 MIN Reason for Visit and Comments: Follow-up [585673] - Patient is here today per Dr burnett request Valve Disorder [3372] Normal [facility] 36on 08-14-2022 36 Pt called in requesting a refill [facility] Office Visiton 07-17-2022 Follow-up visit [id number] Jacquelyn Kaplan 1945 F Date Provider Department Center 07/17/2022 3848-DEN BURNETT EDEN [facility] Family History Problem Relation Age of Onset Aortic stenosis Father Other Father Family Status - Relation Status Age at Father Level of Service:45833 [place] OFFICE/OUTPATIENT ESTABLISHED LOW MDM 20-29 MIN Normal [facility] CBC AUTO DIFFon 05-01-2022 BASO # 0.1 103/ul Normal 0.0-0.1 [facility] Comment on above: Performed By: #### C BC ####[facility] [address] [place] [address]Dr. Sugey Dominguez Basophils/100 WBC (Bld) 0.8 % Normal 0.2-2.0 [facility] Comment on above: Performed By: #### C BC ####[facility] [address] [place] [address]Dr. Sugey Dominguez EO # 0.2 103/ul Normal 0.0-0.7 [facility] Comment on above: Performed By: #### C BC ####[facility] [address] [place] [address]Dr. Sugey Dominguez Eosinophils/100 WBC (Bld) 3.5 % Normal 0.9-7.0 [facility] Comment on above: Performed By: #### C BC ####[facility] [address] [place], [place] [address]Dr. Sugey Dominguez Erythrocyte distribution width (RBC) [Ratio] 13.6 % Normal 11.0-15.0 [facility] Comment on above: Performed By: #### C BC ####[facility] [address] [place], [place] [address]Dr. Sugey Dominguez Hematocrit (Bld) [Volume fraction] 40.7 % Normal 36.0-48.0 [facility] Comment on above: Performed By: #### C BC ####[facility] [address] [place], [place] [address]Dr. Sugey Dominguez Hemoglobin (Bld) [Mass/Vol] 13.5 g/dL Normal 12.0-16.0 [facility] Comment on above: Performed By: #### C BC ####[facility] [address] [place], [place] [address]Dr. Sugey Alberto IG # 0.03 10e3/ul Normal 0.00-0.03 [facility] Comment on above: Performed By: #### C BC ####[facility] [address] [place], [place] [address]Dr. Mainecatherine Dominguez IG % 0.5 % Normal 0.0-0.5 [facility] Comment on above: Performed By: #### C BC ####[facility] [address] [place], [place] [address]DrDarci Dominguez LYMPH # 1.5 103/ul Normal 1.2-3.8 [facility] Comment on above: Performed By: #### C BC ####[facility] [address] [place] [id number]. Sugey Dominguez Lymphocytes/100 WBC (Bld) 23.1 % Normal 20.5-60.0 [facility] Comment on above: Performed By: #### C BC ####[facility] [address] [place] [id number]. Sugey Dominguez MANUAL DIFF REQ NO Normal [facility] Comment on above: Performed By: #### C BC ####[facility] [address] [place] [id number]. Sugey Dominguez MCH (RBC) [Entitic mass] 30.8 pg Normal 26.7-34.0 [facility] Comment on above: Performed By: #### C BC ####[facility] [address] [place] [address]Dr. Sugey Dominguez MCHC (RBC) [Mass/Vol] 33.2 g/dL Normal 29.9-35.2 [facility] Comment on above: Performed By: #### C BC ####[facility] [address] [place] [id number]. Sugey Dominguez MCV (RBC) [Entitic vol] 92.7 fL Normal 81.0-99.0 [facility] Comment on above: Performed By: #### C BC ####[facility] [address] [place] [address]Dr. Sugey Dominguez MONO # 0.4 103/ul Normal 0.3-0.8 [facility] Comment on above: Performed By: #### C BC ####[facility] [address] [place] [id number]. Sugey Dominguez Monocytes/100 WBC (Bld) 6.8 % Normal 1.7-12.0 [facility] Comment on above: Performed By: #### C BC ####[facility] [address] [place], [place] [address]Dr. Sugey Dominguez NEUT # 4.2 103/ul Normal 1.4-6.5 [facility] Comment on above: Performed By: #### C BC ####[facility] [address] [place] [address]Dr. Sugey Dominguez Neutrophils/100 WBC (Bld) 65.3 % Normal 43.0-75.0 [facility] Comment on above: Performed By: #### C BC ####[facility] [address] [place] [id number]. Sugey Dominguez Platelet mean volume (Bld) [Entitic vol] 10.1 fL Normal 9.5-13.5 [facility] Comment on above: Performed By: #### C BC ####[facility] [address] [place] [id number]. Sugey Dominguez PLT 166 103/ul Normal 150-450 [facility] Comment on above: Performed By: #### C BC ####[facility] [address] [place] [address]Dr. Sugey Dominguez RBC 4.39 106/ul Normal 4.20-5.40 [facility] Comment on above: Performed By: #### C BC ####[facility] [address] [place] [id number]. Sugey Dominguez WBC 6.4 103/ul Normal 4.0-11.0 [facility] Comment on above: Performed By: #### C BC ####[facility] [address] [place] [id number]. Sugey Dominguez FREE T3on 05-01-2022 FREE T3 1.80 pg/mlL Critically low 2.18-3.98 [facility] Comment on above: Performed By: #### L IPID, FT3, TSH, LIVER, BMP #### [facility] [address] [address] [address] Sugey Dominguez FREE T4on 05-01-2022 Free T4 [Mass/Vol] 1.40 ng/dL Normal 0.76-1.46 [facility] Comment on above: Performed By: #### F T4 #### [facility] [address] [address] [address] Sugey Dominguez GLYCOHEMOGLOBIN A1Con 2022 ADA RECOMMENDATION SEE BELOW Normal [facility] Comment on above: Result Comment: ADA RECOMMENDED LIMIT 4.0 - 6.0 ADA THERAPEUTIC TARGET < 7.0 ACTION SUGGESTED > 7.0 Performed By: #### A 1C #### [facility] [address] [place] [address] Dr. Sugey Dominguez Glucose [Mass/Vol] 174 mg/dL Normal [facility] Comment on above: Performed By: #### A 1C #### [facility] [address] [place] [address] Dr. Sugey Dominguez HbA1c (Bld) [Mass fraction] 7.7 % Critically high 4.5-6.2 [facility] Comment on above: Performed By: #### A 1C #### [facility] [address] [place] [address] Dr. Sugey Dominguez LIPID PROFILEon 05-01-2022 CHOL-HDL RATIO NORM SEE BELOW Normal [facility] Comment on above: Result Comment: 3.3 - 4.4 LOW RISK 4.4 - 7.1 AVERAGE RISK 7.1 - 11.0 MODERATE RISK >11.0 HIGH RISK Performed By: #### L IPID, FT3, TSH, LIVER, BMP #### [facility] [address] [place] [address] Dr. Sugey Dominguez Cholesterol [Mass/Vol] 176 mg/dL Normal <=200 [facility] Comment on above: Performed By: #### L IPID, FT3, TSH, LIVER, BMP #### [facility] [address] [place] [address] Dr. Sugey Dominguez Cholesterol in HDL [Mass/Vol] 48 mg/dL Normal 40-60 [facility] Comment on above: Performed By: #### L IPID, FT3, TSH, LIVER, BMP #### [facility] [address] [place] [address] Dr. Sugey Dominguez Cholesterol in LDL [Mass/Vol] 80.4 mg/dL Normal [facility] Comment on above: Performed By: #### L IPID, FT3, TSH, LIVER, BMP #### [facility] [address] [address] [address] Sugey Dominguez Cholesterol.total/Marina sterol in HDL [Mass ratio] 3.7 {ratio} Normal [facility] Comment on above: Performed By: #### L IPID, FT3, TSH, LIVER, BMP #### [facility] [address] [address] [address] Sugey Dominguez HDL NORMAL > or = 60 mg/dl - LOW CARDIOVASCULAR RISK <40 mg/dl - HIGH CARDIOVASCULAR RISK Normal [facility] Comment on above: Performed By: #### L IPID, FT3, TSH, LIVER, BMP #### [facility] [address] [address] [address] Sugey Dominguez LDL CALC NORMAL SEE BELOW Normal [facility] Comment on above: Result Comment: <100 mg/dl OPTIMAL 100 - 129 mg/dl NEAR OR ABOVE OPTIMAL 130 - 159 mg/dl BORDERLINE HIGH 160 - 189 mg/dl HIGH >190 mg/dl VERY HIGH Performed By: #### L IPID, FT3, TSH, LIVER, BMP #### [facility] [address] [address] [address] Sugey Dominguez Triglyceride [Mass/Vol] 238 mg/dL Critically high <=150 [facility] Comment on above: Performed By: #### L IPID, FT3, TSH, LIVER, BMP #### [facility] [address] [address] [address] Sugey Dominguez VLDL CALC 47.6 mg/dL Normal [facility] Comment on above: Performed By: #### L IPID, FT3, TSH, LIVER, BMP #### [facility] [address] [address] [address] Sugey Dominguez LIVER PROFILEon 05-01-2022 Albumin [Mass/Vol] 3.8 g/dL Normal 3.4-5.0 [facility] Comment on above: Performed By: #### L IPID, FT3, TSH, LIVER, BMP #### [facility] [address] [address] [address] Sugey Dominguez Albumin/Globulin [Mass ratio] 0.9 {ratio} Normal [facility] Comment on above: Performed By: #### L IPID, FT3, TSH, LIVER, BMP #### [facility] [address] [place] [address] Dr. Sugey Dominguez ALP [Catalytic activity/Vol] 81 U/L Normal 46-116 [facility] Comment on above: Performed By: #### L IPID, FT3, TSH, LIVER, BMP #### [facility] [address] [place] [address] Dr. Sugey Dominguez ALT [Catalytic activity/Vol] 23 U/L Normal 14-59 [facility] Comment on above: Performed By: #### L IPID, FT3, TSH, LIVER, BMP #### [facility] [address] [place] [address] Dr. Sugey Dominguez AST [Catalytic activity/Vol] 15 U/L Normal 15-37 [facility] Comment on above: Performed By: #### L IPID, FT3, TSH, LIVER, BMP #### [facility] [address] [place] [address] Dr. Sugey Dominguez BILI, CONJUGATED 0.2 mg/dL Normal 0.0-0.2 [facility] Comment on above: Performed By: #### L IPID, FT3, TSH, LIVER, BMP #### [facility] [address] [place] [address] Dr. Sugey Dominguez Bilirubin [Mass/Vol] 0.6 mg/dL Normal 0.2-1.0 [facility] Comment on above: Performed By: #### L IPID, FT3, TSH, LIVER, BMP #### [facility] [address] [place] [address] Dr. Sugey Dominguez Globulin (S) [Mass/Vol] 4.0 g/dL Normal [facility] Comment on above: Performed By: #### L IPID, FT3, TSH, LIVER, BMP #### [facility] [address] [place] [address] Dr. Sugey Dominguez Protein [Mass/Vol] 7.8 g/dL Normal 6.4-8.2 [facility] Comment on above: Performed By: #### L IPID, FT3, TSH, LIVER, BMP #### [facility] [address] [address] [address] Sugey Dominguez MICROALBUMIN, RAND URon - mALB <1.3 Normal <=30.0 [facility] Comment on above: Performed By: #### M ALBR #### [facility] [address] [address] [address] Sugey Dominguez PROF CHEM 8 (BAS METB)on Anion gap [Moles/Vol] 12.9 mmol/L Normal [facility] Comment on above: Performed By: #### L IPID, FT3, TSH, LIVER, BMP #### [facility] [address] [place] [address] Dr. Sugey Dominguez Calcium [Mass/Vol] 9.6 mg/dL Normal 8.5-10.1 [facility] Comment on above: Performed By: #### L IPID, FT3, TSH, LIVER, BMP #### [facility] [address] [address] [address] Sugey Dominguez Chloride [Moles/Vol] 96 mmol/L Critically low 98-107 [facility] Comment on above: Performed By: #### L IPID, FT3, TSH, LIVER, BMP #### [facility] [address] [place] [address] Dr. Sugey Dominguez CO2 [Moles/Vol] 30.8 mmol/L Normal 21.0-32.0 [facility] Comment on above: Performed By: #### L IPID, FT3, TSH, LIVER, BMP #### [facility] [address] [address] [address] Sugey Dominguez Creatinine [Mass/Vol] 1.74 mg/dL Critically high 0.55-1.02 [facility] Comment on above: Performed By: #### L IPID, FT3, TSH, LIVER, BMP #### [facility] [address] [address] [address] Sugey Dominguez EGFR-AF SOUTH AFRICAN 35 mL/min/1.73m2 Critically low >=60 [facility] Comment on above: Performed By: #### L IPID, FT3, TSH, LIVER, BMP #### [facility] [address] [place] [address] Dr. Sugey Dominguez EGFR-NON AF SOUTH AFRICAN 29 mL/min/1.73m2 Critically low >=60 [facility] Comment on above: Performed By: #### L IPID, FT3, TSH, LIVER, BMP #### [facility] [address] [place] [address] Dr. Sugey Dominguez Glucose [Mass/Vol] 195 mg/dL Critically high 74-[address] [facility] Comment on above: Performed By: #### L IPID, FT3, TSH, LIVER, BMP #### [facility] [address] [place] [address] Dr. Sugey Dominguez Potassium [Moles/Vol] 4.7 mmol/L Normal 3.5-5.1 [facility] Comment on above: Performed By: #### L IPID, FT3, TSH, LIVER, BMP #### [facility] [address] [place] [address] Dr. Sugey Dominguez Sodium [Moles/Vol] 135 mmol/L Critically low 136-145 [facility] Comment on above: Performed By: #### L IPID, FT3, TSH, LIVER, BMP #### [facility] [address] [place] [address] Dr. Sugey Dominguez Urea nitrogen [Mass/Vol] 47.0 mg/dL Critically high 7.0-18.0 [facility] Comment on above: Performed By: #### L IPID, FT3, TSH, LIVER, BMP #### [facility] [address] [place] [address] Dr. Sugey Dominguez Urea nitrogen/Creatinine [Mass ratio] 27.0 mg/mg Normal [facility] Comment on above: Performed By: #### L IPID, FT3, TSH, LIVER, BMP #### [facility] [address] [place] [address] Dr. Sugey Dominguez TSHon 03-27-2023 TSH 4.093 uIU/mL Critically high 0.358-3.740 [facility] Comment on above: Performed By: #### L IPID, FT3, TSH, LIVER, BMP #### [facility] [address] [place], [place] [address] Dr. Sugey Dominguez GLYCOHEMOGLOBIN A1Con 2021 ADA RECOMMENDATION SEE BELOW Normal [facility] Comment on above: Result Comment: ADA RECOMMENDED LIMIT 4.0 - 6.0 ADA THERAPEUTIC TARGET < 7.0 ACTION SUGGESTED > 7.0 Performed By: #### A 1C ####[facility] [address] [place], [place] [address]Xh. Sugey Dominguez Glucose [Mass/Vol] 183 mg/dL Normal [facility] Comment on above: Performed By: #### A 1C ####[facility] [address] [place], [place] [address]YiDarci Dominguez HbA1c (Bld) [Mass fraction] 8.0 % Critically high 4.5-6.2 [facility] Comment on above: Performed By: #### A 1C ####[facility] [address] [id number] Dominguez BASIC METABOLIC PANELon 03-08 Calcium mass conc 9.2 mg/dL Normal 8.6-10.3 [facility] Comment on above: Order Comment: No: D o not add to previous draw Performed By: #### 3 5200 #### [facility] [address] [place] [address], [facility] Chloride molar conc 96 mmol/L Low 98-107 [facility] Comment on above: Order Comment: No: D o not add to previous draw Performed By: #### 3 5200 #### [facility] [address] [place] [address], [place] CO2 molar conc 27 mmol/L Normal 21-31 [facility] Comment on above: Order Comment: No: D o not add to previous draw Performed By: #### 3 5200 #### [facility] [address] [place] [address], [facility] Creatinine mass conc 0.70 mg/dL Normal 0.60-1.20 [facility] Comment on above: Order Comment: No: D o not add to previous draw Performed By: #### 3 5200 #### [facility] [address] [place] [address], [place] GFR/1.73 sq M predicted among blacks MDRD vol rate/area (S/P/Bld) mL/min/{1.73_m2} Normal >60 The [facility] Comment on above: Order Comment: No: D o not add to previous draw Result Comment: Calc ulation may not be valid for patients over 70 years Performed By: #### 3 5200 #### [facility] [address] [place] [address], [facility] GFR/1.73 sq M predicted among non-blacks MDRD vol rate/area (S/P/Bld) mL/min/{1.73_m2} Normal >60 [facility] Comment on above: Order Comment: No: D o not add to previous draw Result Comment: Calc ulation may not be valid for patients over 70 years Performed By: #### 3 5200 #### [facility] [address] [place] [address], [facility] Glucose mass conc 210 mg/dL High 70-100 [facility] Comment on above: Order Comment: No: D o not add to previous draw Performed By: #### 3 5200 #### [facility] [address] [place] [address], [place] Potassium molar conc 4.0 mmol/L Normal 3.5-5.1 [facility] Comment on above: Order Comment: No: D o not add to previous draw Performed By: #### 3 5200 #### [facility] [address] [place] [address], [place] Sodium molar conc 133 mmol/L Low 136-145 [facility] Comment on above: Order Comment: No: D o not add to previous draw Performed By: #### 3 5200 #### [facility] [address] Urea nitrogen mass conc 20 mg/dL Normal 7-25 T [facility] Comment on above: Order Comment: No: D o not add to previous draw Performed By: #### 3 5200 #### [facility] [address] CBC W/DIFFon 03-24-2018 ABS BASOPHILS 0.1 10*3/uL Normal 0.0-0.2 [facility] Comment on above: Order Comment: No: D o not add to previous draw Performed By: #### 3 5200 #### [facility] [address] ABS IMM GRANS 0.1 10*3/uL Normal 0.0-0.2 [facility] Comment on above: Order Comment: No: D o not add to previous draw Performed By: #### 3 5200 #### [facility] 3000 [facility]. [address] ABS NEUTROPHILS 4.7 10*3/uL Normal 1.6-7.6 [facility] Comment on above: Order Comment: No: D o not add to previous draw Performed By: #### 3 5200 #### [facility] 3000 [facility]. [address] Basophils #/vol (Bld) 1.1 % High 0.0-1.0 [facility] Comment on above: Order Comment: No: D o not add to previous draw Performed By: #### 3 5200 #### [facility] [address] Eosinophils #/vol (Bld) 0.3 10*3/uL Normal 0.0-0.5 [facility] Comment on above: Order Comment: No: D o not add to previous draw Performed By: #### 3 5200 #### [facility] [address] [place] [address], [facility] Eosinophils/100 WBC (Bld) 3.3 % Normal 0.0-6.0 [facility] Comment on above: Order Comment: No: D o not add to previous draw Performed By: #### 3 5200 #### [facility] [address] Erythrocyte distribution width Ratio (RBC) 16.2 % High 11.5-15.0 [facility] Comment on above: Order Comment: No: D o not add to previous draw Performed By: #### 3 5200 #### [facility] [address] [facility] [address] Hematocrit Volume Fraction (Bld) 42.5 % Normal 36.0-45.0 [facility] Comment on above: Order Comment: No: D o not add to previous draw Performed By: #### 3 5200 #### [facility] 3000 [facility] [place], [place] [id number] [place] [address] Hemoglobin mass conc (Bld) 13.7 g/dL Normal 12.0-15.0 [facility] Comment on above: Order Comment: No: D o not add to previous draw Performed By: #### 3 5200 #### [facility] [address] [facility] [place] [address], [facility] IMMATURE GRANS 0.8 % Normal 0.0-1.0 [facility] Comment on above: Order Comment: No: D o not add to previous draw Performed By: #### 3 5200 #### [facility] [address] [place] [address], [facility] Lymphocytes #/vol (Bld) 1.7 10*3/uL Normal 1.2-4.0 [facility] Comment on above: Order Comment: No: D o not add to previous draw Performed By: #### 3 5200 #### [facility] [address] [place] [address], [facility] Lymphocytes/100 WBC (Bld) 22.1 % Normal 20.0-45.0 [facility] Comment on above: Order Comment: No: D o not add to previous draw Performed By: #### 3 5200 #### [facility] [address] [place] [address], [facility] MCH Entitic mass (RBC) 30.0 pg Normal 27.0-33.0 Th [facility] Comment on above: Order Comment: No: D o not add to previous draw Performed By: #### 3 5200 #### [facility] [address] [place] [address], [facility] MCHC mass conc (RBC) 32.2 g/dL Normal 32.0-35.0 [facility] Comment on above: Order Comment: No: D o not add to previous draw Performed By: #### 3 5200 #### [facility] [address] MCV Entitic volume (RBC) 93.2 fL Normal 82.0-98.0 [facility] Comment on above: Order Comment: No: D o not add to previous draw Performed By: #### 3 5200 #### [facility] [address] [place] [address], [facility] Monocytes #/vol (Bld) 0.7 10*3/uL Normal 0.1-1.0 [facility] Comment on above: Order Comment: No: D o not add to previous draw Performed By: #### 3 5200 #### [facility] [address] [place] [address], [facility] MONOS 9.8 % Normal 5.0-12.0 [facility] Comment on above: Order Comment: No: D o not add to previous draw Performed By: #### 3 5200 #### [facility] [address] [place] [address], [facility] Neutrophils/100 WBC (Bld) 62.9 % Normal 40.0-72.0 [facility] Comment on above: Order Comment: No: D o not add to previous draw Performed By: #### 3 5200 #### [facility] [address] [place] [address], [facility] Nucleated RBC/100 WBC Ratio (Bld) 0 % Normal 0-0 [facility] Comment on above: Order Comment: No: D o not add to previous draw Performed By: #### 3 5200 #### [facility] [address] [place] [id number], [facility] PLAT CNT 188 10*3/uL Normal 150-400 [facility] Comment on above: Order Comment: No: D o not add to previous draw Performed By: #### 3 5200 #### [facility] [address] [place] [address], [facility] RBC #/vol (Bld) 4.56 10*6/uL Normal 3.80-5.00 [facility] Comment on above: Order Comment: No: D o not add to previous draw Performed By: #### 3 5200 #### [facility] [address] [place] [address], [facility] WBC #/vol (Bld) 7.48 10*3/uL Normal 4.00-10.60 [facility] Comment on above: Order Comment: No: D o not add to previous draw Performed By: #### 3 5200 #### [facility] [address] [place] [address], [facility] POC GLUCOSE LABon 03-24-2018 Glucose mass conc 241 mg/dL High 70-100 [facility] Comment on above: Performed By: #### 3 5200 #### [facility] [address] [place] [address], [facility] Glucose mass conc 189 mg/dL High 70-100 [facility] Comment on above: Performed By: #### 3 5200 #### [facility] [address] [place] [address], [facility] BASIC METABOLIC PANELon - Calcium mass conc 9.1 mg/dL Normal 8.6-10.3 [facility] Comment on above: Order Comment: No: D o not add to previous draw Performed By: #### 3 5200 #### [facility] [address] [place] [address], [facility] Chloride molar conc 95 mmol/L Low 98-107 [facility] Comment on above: Order Comment: No: D o not add to previous draw Performed By: #### 3 5200 #### [facility] [address] [place] [address], [facility] CO2 molar conc 32 mmol/L High 21-31 The [facility] Comment on above: Order Comment: No: D o not add to previous draw Performed By: #### 3 5200 #### [facility] [address] [place] [address], [facility] Creatinine mass conc 0.71 mg/dL Normal 0.60-1.20 [facility] Comment on above: Order Comment: No: D o not add to previous draw Performed By: #### 3 5200 #### [facility] [address] [place] [id number], [facility] GFR/1.73 sq M predicted among blacks MDRD vol rate/area (S/P/Bld) mL/min/{1.73_m2} Normal >60 The [facility] Comment on above: Order Comment: No: D o not add to previous draw Result Comment: Calc ulation may not be valid for patients over 70 years Performed By: #### 3 5200 #### [facility] [address] [place] [address], [facility] GFR/1.73 sq M predicted among non-blacks MDRD vol rate/area (S/P/Bld) mL/min/{1.73_m2} Normal >60 [facility] Comment on above: Order Comment: No: D o not add to previous draw Result Comment: Calc ulation may not be valid for patients over 70 years Performed By: #### 3 5200 #### [facility] [address] [place] [address], [facility] Glucose mass conc 189 mg/dL High 70-100 [facility] Comment on above: Order Comment: No: D o not add to previous draw Performed By: #### 3 5200 #### [facility] [address] [place] [address], [facility] Potassium molar conc 3.7 mmol/L Normal 3.5-5.1 [facility] Comment on above: Order Comment: No: D o not add to previous draw Performed By: #### 3 5200 #### [facility] [address] [place] [address], [place] Sodium molar conc 134 mmol/L Low 136-145 [facility] Comment on above: Order Comment: No: D o not add to previous draw Performed By: #### 3 5200 #### [facility] [address] [place] [address], [facility] Urea nitrogen mass conc 19 mg/dL Normal 7-25 T [facility] Comment on above: Order Comment: No: D o not add to previous draw Performed By: #### 3 5200 #### [facility] [address] [place] [address], [place] CBC COMPLETE BLOOD COUNTon 0 - Erythrocyte distribution width Ratio (RBC) 16.2 % High 11.5-15.0 [facility] Comment on above: Order Comment: No: D o not add to previous draw Performed By: #### 3 5200 #### [facility] [address] Hematocrit Volume Fraction (Bld) 42.5 % Normal 36.0-45.0 [facility] Comment on above: Order Comment: No: D o not add to previous draw Performed By: #### 3 5200 #### [facility] [address] [place] [address], [facility] Hemoglobin mass conc (Bld) 13.6 g/dL Normal 12.0-15.0 [facility] Comment on above: Order Comment: No: D o not add to previous draw Performed By: #### 3 5200 #### [facility] [address] [place] [address], [facility] MCH Entitic mass (RBC) 29.9 pg Normal 27.0-33.0 [facility] Comment on above: Order Comment: No: D o not add to previous draw Performed By: #### 3 5200 #### [facility] [address] MCHC mass conc (RBC) 32.0 g/dL Normal 32.0-35.0 [facility] Comment on above: Order Comment: No: D o not add to previous draw Performed By: #### 3 5200 #### [facility] [address] [place] [address], [facility] MCV Entitic volume (RBC) 93.4 fL Normal 82.0-98.0 [facility] Comment on above: Order Comment: No: D o not add to previous draw Performed By: #### 3 5200 #### [facility] [address] [place] [id number], [facility] Nucleated RBC/100 WBC Ratio (Bld) 0 % Normal 0-0 [facility] Comment on above: Order Comment: No: D o not add to previous draw Performed By: #### 3 5200 #### [facility] [address] [place] [address], [facility] PLAT CNT 198 10*3/uL Normal 150-400 [facility] Comment on above: Order Comment: No: D o not add to previous draw Performed By: #### 3 5200 #### [facility] [address] [place] [address], [facility] RBC #/vol (Bld) 4.55 10*6/uL Normal 3.80-5.00 [facility] Comment on above: Order Comment: No: D o not add to previous draw Performed By: #### 3 5200 #### [facility] [address] [place] [address], [facility] WBC #/vol (Bld) 7.49 10*3/uL Normal 4.00-10.60 [facility] Comment on above: Order Comment: No: D o not add to previous draw Performed By: #### 3 5200 #### [facility] [address] [place] [address], [facility] POC GLUCOSE LABon 03-23-2018 Glucose mass conc 178 mg/dL High 70-100 [facility] Comment on above: Performed By: #### 3 5200 #### [facility] [address] [facility] [place] [address], [facility] Glucose mass conc 163 mg/dL High 70-100 [facility] Comment on above: Performed By: #### 3 5200 #### [facility] [address] [place] [address], [facility] Glucose mass conc 194 mg/dL High 70-100 [facility] Comment on above: Performed By: #### 3 5200 #### [facility] [address] [facility] [place] [address], [facility] Glucose mass conc 164 mg/dL High 70-100 [facility] Comment on above: Performed By: #### 3 5200 #### [facility] [address] [place] [address], [facility] BASIC METABOLIC PANELon 02- 5-2019 Calcium mass conc 9.0 mg/dL Normal 8.6-10.3 [facility] Comment on above: Order Comment: No: D o not add to previous draw Performed By: #### 3 5200 #### [facility] [address] [place] [address], [place] Chloride molar conc 95 mmol/L Low 98-107 [facility] Comment on above: Order Comment: No: D o not add to previous draw Performed By: #### 3 5200 #### [facility] [address] [place] [address], [place] CO2 molar conc 36 mmol/L High 21-31 [facility] Comment on above: Order Comment: No: D o not add to previous draw Performed By: #### 3 5200 #### [facility] [address] [place] [address], [place] Creatinine mass conc 0.61 mg/dL Normal 0.60-1.20 [facility] Comment on above: Order Comment: No: D o not add to previous draw Performed By: #### 3 5200 #### [facility] [address] [place] [address], [place] GFR/1.73 sq M predicted among blacks MDRD vol rate/area (S/P/Bld) mL/min/{1.73_m2} Normal >60 The [facility] Comment on above: Order Comment: No: D o not add to previous draw Result Comment: Calc ulation may not be valid for patients over 70 years Performed By: #### 3 5200 #### [facility] [address] [place] [address], [place] GFR/1.73 sq M predicted among non-blacks MDRD vol rate/area (S/P/Bld) mL/min/{1.73_m2} Normal >60 [facility] Comment on above: Order Comment: No: D o not add to previous draw Result Comment: Calc ulation may not be valid for patients over 70 years Performed By: #### 3 5200 #### [facility] [address] [place] [address], [place] Glucose mass conc 152 mg/dL High 70-100 [facility] Comment on above: Order Comment: No: D o not add to previous draw Performed By: #### 3 5200 #### [facility] [address] [place] [address], [place] Potassium molar conc 3.5 mmol/L Normal 3.5-5.1 [facility] Comment on above: Order Comment: No: D o not add to previous draw Performed By: #### 3 5200 #### [facility] [address] [place] [address], [place] Sodium molar conc 137 mmol/L Normal 136-145 [facility] Comment on above: Order Comment: No: D o not add to previous draw Performed By: #### 3 5200 #### [facility] [address] [place] [address], [facility] Urea nitrogen mass conc 17 mg/dL Normal 7-25 T [facility] Comment on above: Order Comment: No: D o not add to previous draw Performed By: #### 3 5200 #### [facility] [address] [place] [address], [facility] CBC COMPLETE BLOOD COUNTon 0 - Erythrocyte distribution width Ratio (RBC) 16.2 % High 11.5-15.0 [facility] Comment on above: Order Comment: No: D o not add to previous draw Performed By: #### 3 5200 #### [facility] [address] [place] [address], [place] Hematocrit Volume Fraction (Bld) 42.6 % Normal 36.0-45.0 [facility] Comment on above: Order Comment: No: D o not add to previous draw Performed By: #### 3 5200 #### [facility] [address] [place] [address], [facility] Hemoglobin mass conc (Bld) 13.4 g/dL Normal 12.0-15.0 [facility] Comment on above: Order Comment: No: D o not add to previous draw Performed By: #### 3 5200 #### [facility] [address] [place] [address], [facility] MCH Entitic mass (RBC) 29.4 pg Normal 27.0-33.0 [facility] Comment on above: Order Comment: No: D o not add to previous draw Performed By: #### 3 5200 #### [facility] [address] [place] [id number], [facility] MCHC mass conc (RBC) 31.5 g/dL Low 32.0-35.0 The [facility] Comment on above: Order Comment: No: D o not add to previous draw Performed By: #### 3 5200 #### [facility] [address] [place] [address], [facility] MCV Entitic volume (RBC) 93.4 fL Normal 82.0-98.0 [facility] Comment on above: Order Comment: No: D o not add to previous draw Performed By: #### 3 5200 #### [facility] [address] [place] [address], [facility] Nucleated RBC/100 WBC Ratio (Bld) 0 % Normal 0-0 [facility] Comment on above: Order Comment: No: D o not add to previous draw Performed By: #### 3 5200 #### [facility] [address] [place] [id number], [facility] PLAT CNT 197 10*3/uL Normal 150-400 [facility] Comment on above: Order Comment: No: D o not add to previous draw Performed By: #### 3 5200 #### [facility] [address] [place] [id number], [place] RBC #/vol (Bld) 4.56 10*6/uL Normal 3.80-5.00 The [facility] Comment on above: Order Comment: No: D o not add to previous draw Performed By: #### 3 5200 #### [facility] [address] [place] [address], [place] WBC #/vol (Bld) 7.53 10*3/uL Normal 4.00-10.60 [facility] Comment on above: Order Comment: No: D o not add to previous draw Performed By: #### 3 5200 #### [facility] [address] [place] [address], [place] POC GLUCOSE LABon 03-22-2018 Glucose mass conc 187 mg/dL High 70-100 The [facility] Comment on above: Performed By: #### 3 5200 #### [facility] [address] [place] [address], [place] Glucose mass conc 161 mg/dL High 70-100 [facility] Comment on above: Performed By: #### 3 5200 #### [facility] [address] [place] [address], [place] Glucose mass conc 226 mg/dL High 70-100 [facility] Comment on above: Performed By: #### 3 5200 #### [facility] [address] [place] [address], [place] Glucose mass conc 175 mg/dL High 70-100 [facility] Comment on above: Performed By: #### 3 5200 #### [facility] [address] [place] [address], [place] Glucose mass conc 148 mg/dL High 70-100 [facility] Comment on above: Performed By: #### 3 5200 #### [facility] [address] [place] [address], [place] Glucose mass conc 191 mg/dL High 70-100 [facility] Comment on above: Performed By: #### 5 6101, 77329 #### [facility] [address] [place] [address], [facility] BASIC METABOLIC PANELon 03-08 Calcium mass conc 9.1 mg/dL Normal 8.6-10.3 [facility] Comment on above: Order Comment: No: D o not add to previous draw Performed By: #### 5 610, 99599 #### [facility] [address] [place] [address], [facility] Chloride molar conc 95 mmol/L Low 98-107 The [facility] Comment on above: Order Comment: No: D o not add to previous draw Performed By: #### 5 610, 68452 #### [facility] [address] [place] [address], [facility] CO2 molar conc 36 mmol/L High 21-31 The [facility] Comment on above: Order Comment: No: D o not add to previous draw Performed By: #### 5 6101, 40127 #### [facility] [address] [place] [address], [facility] Creatinine mass conc 0.68 mg/dL Normal 0.60-1.20 [facility] Comment on above: Order Comment: No: D o not add to previous draw Performed By: #### 5 6101, 50313 #### [facility] [address] [place] [address], [place] GFR/1.73 sq M predicted among blacks MDRD vol rate/area (S/P/Bld) mL/min/{1.73_m2} Normal >60 The [facility] Comment on above: Order Comment: No: D o not add to previous draw Result Comment: Calc ulation may not be valid for patients over 70 years Performed By: #### 5 6101, 86365 #### [facility] [address] [place] [address], [facility] GFR/1.73 sq M predicted among non-blacks MDRD vol rate/area (S/P/Bld) mL/min/{1.73_m2} Normal >60 The [facility] Comment on above: Order Comment: No: D o not add to previous draw Result Comment: Calc ulation may not be valid for patients over 70 years Performed By: #### 5 610, 50994 #### [facility] [address] [place] [address], [facility] Glucose mass conc 147 mg/dL High 70-100 [facility] Comment on above: Order Comment: No: D o not add to previous draw Performed By: #### 5 610, 04607 #### [facility] [address] [place] [address], [facility] Potassium molar conc 3.6 mmol/L Normal 3.5-5.1 [facility] Comment on above: Order Comment: No: D o not add to previous draw Performed By: #### 5 610, 82944 #### [facility] [address] [place] [address], [facility] Sodium molar conc 139 mmol/L Normal 136-145 The [facility] Comment on above: Order Comment: No: D o not add to previous draw Performed By: #### 5 610, 73305 #### [facility] [address] [place] [address], [facility] Urea nitrogen mass conc 14 mg/dL Normal 7-25 T [facility] Comment on above: Order Comment: No: D o not add to previous draw Performed By: #### 5 610, 81610 #### [facility] [address] [place] [address], [facility] CBC COMPLETE BLOOD COUNTon 0 - Erythrocyte distribution width Ratio (RBC) 16.2 % High 11.5-15.0 The [facility] Comment on above: Order Comment: No: D o not add to previous draw Performed By: #### 5 610, 42713 #### [facility] [address] [place] [address], [facility] Hematocrit Volume Fraction (Bld) 42.0 % Normal 36.0-45.0 [facility] Comment on above: Order Comment: No: D o not add to previous draw Performed By: #### 5 6100, 41492 #### [facility] [address] [place] [address], [facility] Hemoglobin mass conc (Bld) 13.5 g/dL Normal 12.0-15.0 [facility] Comment on above: Order Comment: No: D o not add to previous draw Performed By: #### 5 6100, 47674 #### [facility] [address] [place] [address], [facility] MCH Entitic mass (RBC) 30.0 pg Normal 27.0-33.0 Th e [facility] Comment on above: Order Comment: No: D o not add to previous draw Performed By: #### 5 6100, 64594 #### [facility] [address] [place] [address], [facility] MCHC mass conc (RBC) 32.1 g/dL Normal 32.0-35.0 [facility] Comment on above: Order Comment: No: D o not add to previous draw Performed By: #### 5 6100, 39109 #### [facility] [address] [place] [address], [facility] MCV Entitic volume (RBC) 93.3 fL Normal 82.0-98.0 [facility] Comment on above: Order Comment: No: D o not add to previous draw Performed By: #### 5 6100, 60897 #### [facility] [address] [place] [address], [facility] Nucleated RBC/100 WBC Ratio (Bld) 0 % Normal 0-0 [facility] Comment on above: Order Comment: No: D o not add to previous draw Performed By: #### 5 6100, 15434 #### [facility] [address] [place] [id number], [facility] PLAT CNT 196 10*3/uL Normal 150-400 [facility] Comment on above: Order Comment: No: D o not add to previous draw Performed By: #### 5 610, 97275 #### [facility] [address] [place] [address], [facility] RBC #/vol (Bld) 4.50 10*6/uL Normal 3.80-5.00 [facility] Comment on above: Order Comment: No: D o not add to previous draw Performed By: #### 5 6100, 03854 #### [facility] [address] [place] [address], [facility] WBC #/vol (Bld) 7.89 10*3/uL Normal 4.00-10.60 [facility] Comment on above: Order Comment: No: D o not add to previous draw Performed By: #### 5 6100, 30419 #### [facility] [address] [place] [address], [facility] POC GLUCOSE LABon 03-21-2018 Glucose mass conc 174 mg/dL High 70-100 [facility] Comment on above: Performed By: #### 5 6100, 86481 #### [facility] [address] [place] [address], [facility] Glucose mass conc 129 mg/dL High 70-100 The [facility] Comment on above: Performed By: #### 5 6100, 96642 #### [facility] [address] [place] [id number], [facility] Glucose mass conc 280 mg/dL High 70-100 [facility] Comment on above: Performed By: #### 5 610, 28914 #### [facility] [address] [place] [address], [facility] BASIC METABOLIC PANELon 03-08 Calcium mass conc 9.2 mg/dL Normal 8.6-10.3 [facility] Comment on above: Order Comment: No: D o not add to previous draw Performed By: #### 5 6101, 88295 #### [facility] [address] [place] [address], [place] Chloride molar conc 96 mmol/L Low 98-107 The [facility] Comment on above: Order Comment: No: D o not add to previous draw Performed By: #### 5 6101, 85339 #### [facility] [address] [place] [address], [place] CO2 molar conc 33 mmol/L High 21-31 The [facility] Comment on above: Order Comment: No: D o not add to previous draw Performed By: #### 5 6101, 64302 #### [facility] [address] [place] [address], [place] Creatinine mass conc 0.69 mg/dL Normal 0.60-1.20 The [facility] Comment on above: Order Comment: No: D o not add to previous draw Performed By: #### 5 6101, 19419 #### [facility] [address] [place] [address], [place] GFR/1.73 sq M predicted among blacks MDRD vol rate/area (S/P/Bld) mL/min/{1.73_m2} Normal >60 The [facility] Comment on above: Order Comment: No: D o not add to previous draw Result Comment: Calc ulation may not be valid for patients over 70 years Performed By: #### 5 6101, 81822 #### [facility] [address] [place] [address], [place] GFR/1.73 sq M predicted among non-blacks MDRD vol rate/area (S/P/Bld) mL/min/{1.73_m2} Normal >60 The [facility] Comment on above: Order Comment: No: D o not add to previous draw Result Comment: Calc ulation may not be valid for patients over 70 years Performed By: #### 5 6101, 59834 #### [facility] [address] [place] [address], [place] Glucose mass conc 134 mg/dL High 70-100 [facility] Comment on above: Order Comment: No: D o not add to previous draw Performed By: #### 5 610, 19862 #### [facility] [address] [place] [address], [place] Potassium molar conc 4.1 mmol/L Normal 3.5-5.1 [facility] Comment on above: Order Comment: No: D o not add to previous draw Performed By: #### 5 610, 88032 #### [facility] [address] [place] [address], [place] Sodium molar conc 137 mmol/L Normal 136-145 [facility] Comment on above: Order Comment: No: D o not add to previous draw Performed By: #### 5 610, 89143 #### [facility] [address] [place] [address], [place] Urea nitrogen mass conc 13 mg/dL Normal 7-25 T [facility] Comment on above: Order Comment: No: D o not add to previous draw Performed By: #### 5 610, 28993 #### [facility] [address] [place] [address], [place] MAGNESIUM BLOODon 03-20-2018 Magnesium mass conc 1.9 mg/dL Normal 1.9-2.7 The [facility] Comment on above: Order Comment: No: D o not add to previous draw Performed By: #### 5 6101, 21884 #### [facility] [address] [place] [address], [place] POC GLUCOSE LABon 03-20-2018 Glucose mass conc 109 mg/dL High 70-100 [facility] Comment on above: Performed By: #### 5 610, 09382 #### [facility] [address] [place] [address], [facility] Glucose mass conc 194 mg/dL High 70-100 [facility] Comment on above: Performed By: #### 5 610, 26757 #### [facility] [address] [place] [address], [facility] Glucose mass conc 119 mg/dL High 70-100 [facility] Comment on above: Performed By: #### 5 610, 17335 #### [facility] [address] [place] [address], [facility] Glucose mass conc 203 mg/dL High 70-100 [facility] Comment on above: Performed By: #### 5 610, 86089 #### [facility] [address] [place] [address], [facility] APTTon 03-19-2018 aPTT Coag time (Bld) 32.1 s Normal 25.0-35.0 The [facility] Comment on above: Order Comment: [...] FOR THIS PURPOSE. Performed By: #### 5 610, 84581 #### [facility] [address] [place] [address], [facility] BASIC METABOLIC PANELon 03-08 Calcium mass conc 9.2 mg/dL Normal 8.6-10.3 [facility] Comment on above: Order Comment: No: D o not add to previous draw Performed By: #### 5 610, 19783 #### [facility] [address] [place] [address], [facility] Chloride molar conc 95 mmol/L Low 98-107 The [facility] Comment on above: Order Comment: No: D o not add to previous draw Performed By: #### 5 6101, 64069 #### [facility] [address] [place] [address], [place] CO2 molar conc 34 mmol/L High 21-31 The [facility] Comment on above: Order Comment: No: D o not add to previous draw Performed By: #### 5 6101, 81873 #### [facility] [address] [place] [address], [place] Creatinine mass conc 0.55 mg/dL Low 0.60-1.20 The [facility] Comment on above: Order Comment: No: D o not add to previous draw Performed By: #### 5 6101, 61230 #### [facility] [address] [place] [address], [place] GFR/1.73 sq M predicted among blacks MDRD vol rate/area (S/P/Bld) mL/min/{1.73_m2} Normal >60 The [facility] Comment on above: Order Comment: No: D o not add to previous draw Result Comment: Calc ulation may not be valid for patients over 70 years Performed By: #### 5 6101, 90704 #### [facility] [address] [place] [address], [place] GFR/1.73 sq M predicted among non-blacks MDRD vol rate/area (S/P/Bld) mL/min/{1.73_m2} Normal >60 The [facility] Comment on above: Order Comment: No: D o not add to previous draw Result Comment: Calc ulation may not be valid for patients over 70 years Performed By: #### 5 6101, 18132 #### [facility] [address] [place] [address], [place] Glucose mass conc 136 mg/dL High 70-100 [facility] Comment on above: Order Comment: No: D o not add to previous draw Performed By: #### 5 610, 56351 #### [facility] [address] [place] [address], [facility] Potassium molar conc 3.4 mmol/L Low 3.5-5.1 [facility] Comment on above: Order Comment: No: D o not add to previous draw Performed By: #### 5 610, 18885 #### [facility] [address] [place] [address], [facility] Sodium molar conc 137 mmol/L Normal 136-145 The [facility] Comment on above: Order Comment: No: D o not add to previous draw Performed By: #### 5 610, 47493 #### [facility] [address] Urea nitrogen mass conc 11 mg/dL Normal 7-25 T [facility] Comment on above: Order Comment: No: D o not add to previous draw Performed By: #### 5 6101, 79815 #### [facility] [address] [facility] [place] [address], [facility] CBC W/DIFFon 03-19-2018 ABS BASOPHILS 0.1 10*3/uL Normal 0.0-0.2 The [facility] Comment on above: Order Comment: No: D o not add to previous draw Performed By: #### 5 6101, 86505 #### [facility] [address] [place] [address], [facility] ABS IMM GRANS 0.1 10*3/uL Normal 0.0-0.2 The [facility] Comment on above: Order Comment: No: D o not add to previous draw Performed By: #### 5 6101, 63331 #### [facility] [address] [place] [address], [facility] ABS NEUTROPHILS 6.1 10*3/uL Normal 1.6-7.6 The [facility] Comment on above: Order Comment: No: D o not add to previous draw Performed By: #### 5 610, 51675 #### [facility] [address] [place] [address], [facility] Basophils #/vol (Bld) 0.8 % Normal 0.0-1.0 [facility] Comment on above: Order Comment: No: D o not add to previous draw Performed By: #### 5 610, 39754 #### [facility] [address] [place] [address], [facility] Eosinophils #/vol (Bld) 0.2 10*3/uL Normal 0.0-0.5 The [facility] Comment on above: Order Comment: No: D o not add to previous draw Performed By: #### 5 610, 29427 #### [facility] [address] [place] [id number], [facility] Eosinophils/100 WBC (Bld) 1.9 % Normal 0.0-6.0 [facility] Comment on above: Order Comment: No: D o not add to previous draw Performed By: #### 5 6100, 10450 #### [facility] [address] [place] [address], [facility] Erythrocyte distribution width Ratio (RBC) 16.4 % High 11.5-15.0 The [facility] Comment on above: Order Comment: No: D o not add to previous draw Performed By: #### 5 6100, 03035 #### [facility] [address] [place] [id number], [facility] Hematocrit Volume Fraction (Bld) 43.7 % Normal 36.0-45.0 The [facility] Comment on above: Order Comment: No: D o not add to previous draw Performed By: #### 5 610, 28846 #### [facility] [address] [place] [address], [facility] Hemoglobin mass conc (Bld) 14.0 g/dL Normal 12.0-15.0 [facility] Comment on above: Order Comment: No: D o not add to previous draw Performed By: #### 5 6100, 78409 #### [facility] [address] [place] [address], [facility] IMMATURE GRANS 0.7 % Normal 0.0-1.0 [facility] Comment on above: Order Comment: No: D o not add to previous draw Performed By: #### 5 6100, 69175 #### [facility] [address] [place] [id number], [facility] Lymphocytes #/vol (Bld) 1.7 10*3/uL Normal 1.2-4.0 [facility] Comment on above: Order Comment: No: D o not add to previous draw Performed By: #### 5 6100, 95134 #### [facility] [address] [place] [address], [facility] Lymphocytes/100 WBC (Bld) 19.1 % Low 20.0-45.0 [facility] Comment on above: Order Comment: No: D o not add to previous draw Performed By: #### 5 6100, 97440 #### [facility] [address] [place] [address], [facility] MCH Entitic mass (RBC) 29.5 pg Normal 27.0-33.0 Th e [facility] Comment on above: Order Comment: No: D o not add to previous draw Performed By: #### 5 6100, 62990 #### [facility] [address] [place] [id number], [facility] MCHC mass conc (RBC) 32.0 g/dL Normal 32.0-35.0 [facility] Comment on above: Order Comment: No: D o not add to previous draw Performed By: #### 5 610, 55084 #### [facility] [address] [place] [address], [facility] MCV Entitic volume (RBC) 92.0 fL Normal 82.0-98.0 The [facility] Comment on above: Order Comment: No: D o not add to previous draw Performed By: #### 5 610, 89917 #### [facility] [address] [place] [address], [facility] Monocytes #/vol (Bld) 0.6 10*3/uL Normal 0.1-1.0 Th e [facility] Comment on above: Order Comment: No: D o not add to previous draw Performed By: #### 5 6100, 54752 #### [facility] [address] [place] [id number], [facility] MONOS 7.0 % Normal 5.0-12.0 The [facility] Comment on above: Order Comment: No: D o not add to previous draw Performed By: #### 5 6100, 84455 #### [facility] [address] [place] [address], [facility] Neutrophils/100 WBC (Bld) 70.5 % Normal 40.0-72.0 [facility] Comment on above: Order Comment: No: D o not add to previous draw Performed By: #### 5 6100, 51679 #### [facility] [address] [place] [address], [facility] Nucleated RBC/100 WBC Ratio (Bld) 0 % Normal 0-0 [facility] Comment on above: Order Comment: No: D o not add to previous draw Performed By: #### 5 6100, 31685 #### [facility] [address] [place] [address], [facility] PLAT CNT 200 10*3/uL Normal 150-400 [facility] Comment on above: Order Comment: No: D o not add to previous draw Performed By: #### 5 610, 07355 #### [facility] [address] [place] [address], [facility] RBC #/vol (Bld) 4.75 10*6/uL Normal 3.80-5.00 The [facility] Comment on above: Order Comment: No: D o not add to previous draw Performed By: #### 5 6101, 51168 #### [address] WBC #/vol (Bld) 8.62 10*3/uL Normal 4.00-10.60 The [facility] Comment on above: Order Comment: No: D o not add to previous draw Performed By: #### 5 6101, 56821 #### [facility] [address] CHEST AND LATERALon 03-19-19 19 CHEST AND LATERAL [facility] Department of Radiology [address] [place] [id number] Patient Name: JACQUELYN KAPLAN : 1945 Sex: F Age: Race: White Pt. Location: [id number] Patient Status: I Ordered Date: 03/19/2018 12:15:00 AM Completed Date: 03/19/2018 05:56 AM Requesting Provider: JAGUAR JOHN Attending Provider: PHAM GABRIEL Report Copy To: Signs & Symptoms: Shortness [...] cardiomegaly. Electronically signed by:Shankar Nicolas. Transcribed by: [email or web address], User Resident: Electronically Signed by: SHANKAR NICOLAS @ 03/19/2018 08:20 AM Normal [facility] Comment on above: Order Comment: No: D o not add to previous draw COMP METABOLIC PANELon 03-19 Albumin mass conc 3.3 g/dL Low 3.5-5.7 The [facility] Comment on above: Order Comment: No: D o not add to previous draw Performed By: #### 5 6101, 46448 #### [facility] [address] [facility] [place] [address], [facility] ALKALINE PHOSPH 58 IU/L Normal 34-104 The [facility] Comment on above: Order Comment: No: D o not add to previous draw Performed By: #### 5 610, 61394 #### [facility] [address] [place] [address], [facility] ALT enzyme act/vol 28 U/L Normal 7-52 The [facility] Comment on above: Order Comment: No: D o not add to previous draw Performed By: #### 5 6101, 27127 #### [facility] [address] [place] [address], [place] AST enzyme act/vol 22 U/L Normal 13-39 The [facility] Comment on above: Order Comment: No: D o not add to previous draw Performed By: #### 5 6101, 62484 #### [facility] [address] [place] [address], [place] Bilirubin mass conc 1.9 mg/dL High 0.3-1.0 The [facility] Comment on above: Order Comment: No: D o not add to previous draw Performed By: #### 5 610, 47120 #### [facility] [address] [place] [address], [facility] Calcium mass conc 9.0 mg/dL Normal 8.6-10.3 The [facility] Comment on above: Order Comment: No: D o not add to previous draw Performed By: #### 5 610, 78182 #### [facility] [address] [place] [address], [facility] Chloride molar conc 94 mmol/L Low 98-107 The [facility] Comment on above: Order Comment: No: D o not add to previous draw Performed By: #### 5 610, 27437 #### [facility] [address] [place] [address], [facility] CO2 molar conc 36 mmol/L High 21-31 The [facility] Comment on above: Order Comment: No: D o not add to previous draw Performed By: #### 5 610, 79545 #### [facility] [address] [place] [address], [facility] Creatinine mass conc 0.61 mg/dL Normal 0.60-1.20 The [facility] Comment on above: Order Comment: No: D o not add to previous draw Performed By: #### 5 610, 76919 #### [facility] [address] [place] [address], [place] GFR/1.73 sq M predicted among blacks MDRD vol rate/area (S/P/Bld) mL/min/{1.73_m2} Normal >60 The [facility] Comment on above: Order Comment: No: D o not add to previous draw Result Comment: Calc ulation may not be valid for patients over 70 years Performed By: #### 5 610, 65341 #### [facility] [address] [place] [address], [facility] GFR/1.73 sq M predicted among non-blacks MDRD vol rate/area (S/P/Bld) mL/min/{1.73_m2} Normal >60 The [facility] Comment on above: Order Comment: No: D o not add to previous draw Result Comment: Calc ulation may not be valid for patients over 70 years Performed By: #### 5 610, 51807 #### [facility] [address] [place] [address], [facility] Glucose mass conc 210 mg/dL High 70-100 The [facility] Comment on above: Order Comment: No: D o not add to previous draw Performed By: #### 5 610, 59096 #### [facility] [address] [place] [address], [facility] Potassium molar conc 3.3 mmol/L Low 3.5-5.1 The [facility] Comment on above: Order Comment: No: D o not add to previous draw Performed By: #### 5 610, 54922 #### [facility] [address] [place] [address], [facility] Protein mass conc 6.3 g/dL Normal 6.0-8.3 The [facility] Comment on above: Order Comment: No: D o not add to previous draw Performed By: #### 5 610, 84749 #### [facility] [address] [place] [address], [facility] Sodium molar conc 137 mmol/L Normal 136-145 The [facility] Comment on above: Order Comment: No: D o not add to previous draw Performed By: #### 5 610, 64613 #### [facility] [address] [place] [address], [facility] Urea nitrogen mass conc 11 mg/dL Normal 7-25 T he [facility] Comment on above: Order Comment: No: D o not add to previous draw Performed By: #### 5 610, 15941 #### [facility] [address] History and Physicalon 03-19 History and Physical MR#: [id number] [facility] Pt. 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 She was admitted to [facility] where she was found to be [...] stenosis during her last hospitalization here at [facility] earlier this month. There was a discussion with Cardiology service about aortic valve replacement, whether to have TAVR versus open heart surgery and that decision has not been made yet. She was supposed to follow up with our Cardiology service next week. Transfer was initiated from [place] for further evaluation from our Cardiology service and also due to concern at [place] whether she needed urgent valve replacement done [...] heart rate 73, respiratory rate 23, blood [id number], pulse ox 99% 2L NC. EYES: Pupils [...] oriented x3. LAB STUDIES: From [facility], March 18, 2018. CBC; WBC 7.4, hemoglobin 12.7, hematocrit 39.2, platelet count 174. BMP: Sodium 142, potassium 3.3, chloride 101, bicarb 34.7, BUN 12, creatinine 0.71, calcium 8.5, glucose 93. The patient had BNP of 16,271 on March 16, 2018, when she initially presented. It appears that cardiac enzymes are negative. Chest x-ray is reported to be showing pulmonary edema from [place], but no images were sent over with [...] A/Jaguar John MD Date Trans: 03/19/2018 01:05 A/yriso [id number] Normal The [facility] MAGNESIUM BLOODon 03-19-2018 Magnesium mass conc 1.8 mg/dL Low 1.9-2.7 The [facility] Comment on above: Order Comment: Yes: Add to Previous draw if able Performed By: #### 3 5200, 02143, 38422, 43691 #### [facility] [address] [place] [address], [facility] POC GLUCOSE LABon 03-19-2018 Glucose mass conc 260 mg/dL High 70-100 The [facility] Comment on above: Performed By: #### 5 6101, 72793 #### [facility] [address] [place] [address], [place] Glucose mass conc 200 mg/dL High 70-100 The [facility] Comment on above: Performed By: #### 5 6101, 08836 #### [facility] [address] [place] [address], [place] Glucose mass conc 130 mg/dL High 70-100 The [facility] Comment on above: Performed By: #### 3 5200, 05272, 53177, 19160 #### [facility] [address] [place] [address], [place] Glucose mass conc 112 mg/dL High 70-100 The [facility] Comment on above: Performed By: #### 3 5200, 87925, 45976, 37961 #### [facility] [address] [facility] [address] PROTHROMBIN TIMEon 9 INR Coag RelTime (PPP) 1.19 {INR} High 0.91-1.16 Th e [facility] Comment on above: Order Comment: [...] CHEST 1995;[id number]. Performed By: #### 5 6101, 62861 #### [facility] [address] Prothrombin time (PT) Coag time (PPP) 15.1 s High 12.3-14.8 The [facility] Comment on above: Order Comment: No: D o not add to previous draw Result Comment: ALL RESULTS MUST BE INTERPRETED WITH RESPECT TO BLOOD DRAWING ARTIFACT OR DILUTION ERROR OF ANTICOAGULANT AT THE TIME OF SAMPLING. Performed By: #### 5 6101, 60994 #### [facility] [address] [place] [address], [facility] APTTon 03-13-2018 aPTT Coag time (Bld) 52.4 s High 25.0-35.0 The [facility] Comment on above: Order Comment: [...] OF HEPARIN. Performed By: #### 3 5200, 10733, 75963, 40085 #### [facility] [address] [place] [address], [facility] aPTT Coag time (Bld) 56.9 s High 25.0-35.0 The [facility] Comment on above: Order Comment: [...] OF HEPARIN. Performed By: #### 3 5200, 05448, 74980, 35800 #### [facility] [address] [place] [address], [facility] aPTT Coag time (Bld) 53.6 s High 25.0-35.0 The [facility] Comment on above: Order Comment: [...] OF HEPARIN. Performed By: #### 3 5200, 15458, 39531, 90521 #### [facility] [address] [place] [address], [facility] POC GLUCOSE LABon 03-13-2018 Glucose mass conc 140 mg/dL High 70-100 The [facility] Comment on above: Performed By: #### 3 5200, 77549, 64297, 27539 #### [facility] [address] [place] [address], [facility] Glucose mass conc 189 mg/dL High 70-100 The [facility] Comment on above: Performed By: #### 3 5200, 22247, 73496, 38700 #### [facility] [address] [place] [address], [facility] Glucose mass conc 156 mg/dL High 70-100 The [facility] Comment on above: Performed By: #### 3 5200, 03932, 59750, 32741 #### [facility] [address] [place] [address], [facility] UFH HEPARIN ASSAYon 03-13-19 19 UNFRACTIONATED HEPARIN 0.14 IU/mL Critically low 0.30-0.70 The [facility] Comment on above: Order Comment: Yes: Add to Previous draw if able Result Comment: Widener roxaban and Apixaban will interfere with the anti Xa assay used to monitor UFH and LMWH. Results called. Accurately read back by PEGGY [email or web address] Performed By: #### 3 5200, 36181, 05812, 03625 #### [facility] [address] [place] [address], [facility] UNFRACTIONATED HEPARIN 0.18 IU/mL Low 0.30-0.70 Th e [facility] Comment on above: Order Comment: Yes: Add to Previous draw if able Result Comment: Widener roxaban and Apixaban will interfere with the anti Xa assay used to monitor UFH and LMWH. Performed By: #### 3 5200, 42955, 62170, 96403 #### [facility] [address] UNFRACTIONATED HEPARIN 0.18 IU/mL Low 0.30-0.70 Th e [facility] Comment on above: Result Comment: Widener roxaban and Apixaban will interfere with the anti Xa assay used to monitor UFH and LMWH. ADDED PER PROTOCOL. Performed By: #### 3 5200, 44609, 85348, 63756 #### [facility] [address] APTTon 03-12-2018 aPTT Coag time (Bld) 49.2 s High 25.0-35.0 The [facility] Comment on above: Order Comment: [...] THIS PURPOSE. Performed By: #### 3 5200, 00690, 40833, 25876 #### [facility] [address] aPTT Coag time (Bld) 59.2 s High 25.0-35.0 The [facility] Comment on above: Order Comment: [...] OF HEPARIN. Performed By: #### 3 5200, 98095, 65013, 35031 #### [facility] [address] aPTT Coag time (Bld) 43.7 s High 25.0-35.0 [facility] Comment on above: Order Comment: Yes: [...] THIS PURPOSE. Performed By: #### 3 5200, 88330, 47884, 54314 #### [facility] [address] BASIC METABOLIC PANELon 02-0 Calcium mass conc 8.9 mg/dL Normal 8.6-10.3 [facility] Comment on above: Order Comment: Yes: Add to Previous draw if able Performed By: #### 3 5200, 07040, 42439, 22816 #### [facility] [address] [place] [address], [facility] Chloride molar conc 100 mmol/L Normal 98-107 The [facility] Comment on above: Order Comment: Yes: Add to Previous draw if able Performed By: #### 3 5200, 17846, 51189, 23238 #### [facility] [address] [place] [address], [facility] CO2 molar conc 28 mmol/L Normal 21-31 The [facility] Comment on above: Order Comment: Yes: Add to Previous draw if able Performed By: #### 3 5200, 16962, 26701, 06455 #### [facility] [address] [place] [address], [facility] Creatinine mass conc 0.50 mg/dL Low 0.60-1.20 The [facility] Comment on above: Order Comment: Yes: Add to Previous draw if able Performed By: #### 3 5200, 85692, 96860, 26707 #### [facility] [address] [place] [address], [facility] GFR/1.73 sq M predicted among blacks MDRD vol rate/area (S/P/Bld) mL/min/{1.73_m2} Normal >60 The [facility] Comment on above: Order Comment: Yes: Add to Previous draw if able Result Comment: Calc ulation may not be valid for patients over 70 years Performed By: #### 3 5200, 94180, 19969, 81812 #### [facility] [address] [place] [address], [facility] GFR/1.73 sq M predicted among non-blacks MDRD vol rate/area (S/P/Bld) mL/min/{1.73_m2} Normal >60 The [facility] Comment on above: Order Comment: Yes: Add to Previous draw if able Result Comment: Calc ulation may not be valid for patients over 70 years Performed By: #### 3 5200, 02061, 58479, 14447 #### [facility] [address] [place] [address], [facility] Glucose mass conc 132 mg/dL High 70-100 [facility] Comment on above: Order Comment: Yes: Add to Previous draw if able Performed By: #### 3 5200, 07477, 73341, 39782 #### [facility] [address] [place] [address], [facility] Potassium molar conc 3.6 mmol/L Normal 3.5-5.1 [facility] Comment on above: Order Comment: Yes: Add to Previous draw if able Performed By: #### 3 5200, 20319, 45318, 15079 #### [facility] [address] [place] [address], [place] Sodium molar conc 137 mmol/L Normal 136-145 [facility] Comment on above: Order Comment: Yes: Add to Previous draw if able Performed By: #### 3 5200, 33974, 84388, 08070 #### [facility] [address] [place] [address], [facility] Urea nitrogen mass conc 10 mg/dL Normal 7-25 T he [facility] Comment on above: Order Comment: Yes: Add to Previous draw if able Performed By: #### 3 5200, 74751, 09800, 56995 #### [facility] [address] [place] [address], [facility] CBC COMPLETE BLOOD COUNTon - Erythrocyte distribution width Ratio (RBC) 16.1 % High 11.5-15.0 [facility] Comment on above: Order Comment: Yes: Add to Previous draw if able Performed By: #### 3 5200, 67512, 44557, 55703 #### [facility] [address] [place] [address], [facility] Hematocrit Volume Fraction (Bld) 39.3 % Normal 36.0-45.0 The [facility] Comment on above: Order Comment: Yes: Add to Previous draw if able Performed By: #### 3 5200, 80945, 29190, 78827 #### [facility] [address] [place] [address], [facility] Hemoglobin mass conc (Bld) 12.4 g/dL Normal 12.0-15.0 The [facility] Comment on above: Order Comment: Yes: Add to Previous draw if able Performed By: #### 3 5200, 23293, 96086, 14283 #### [facility] [address] [place] [address], [facility] MCH Entitic mass (RBC) 29.7 pg Normal 27.0-33.0 Th e [facility] Comment on above: Order Comment: Yes: Add to Previous draw if able Performed By: #### 3 5200, 24765, 60031, 16460 #### [facility] [address] [place] [address], [facility] MCHC mass conc (RBC) 31.6 g/dL Low 32.0-35.0 The [facility] Comment on above: Order Comment: Yes: Add to Previous draw if able Performed By: #### 3 5200, 06980, 60234, 58615 #### [facility] [address] MCV Entitic volume (RBC) 94.0 fL Normal 82.0-98.0 [facility] Comment on above: Order Comment: Yes: Add to Previous draw if able Performed By: #### 3 5200, 36762, 13206, 48160 #### [facility] [address] Nucleated RBC/100 WBC Ratio (Bld) 0 % Normal 0-0 The [facility] Comment on above: Order Comment: Yes: Add to Previous draw if able Performed By: #### 3 5200, 83206, 51138, 77282 #### [facility] [address] PLAT CNT 185 10*3/uL Normal 150-400 [facility] Comment on above: Order Comment: Yes: Add to Previous draw if able Performed By: #### 3 5200, 31327, 06637, 99374 #### [facility] [address] [facility] [address] RBC #/vol (Bld) 4.18 10*6/uL Normal 3.80-5.00 [facility] Comment on above: Order Comment: Yes: Add to Previous draw if able Performed By: #### 3 5200, 26672, 46789, 93202 #### [facility] [address] [place] [address], [facility] WBC #/vol (Bld) 6.85 10*3/uL Normal 4.00-10.60 [facility] Comment on above: Order Comment: Yes: Add to Previous draw if able Performed By: #### 3 5200, 01709, 48737, 79346 #### [facility] [address] [place] [address], [facility] POC GLUCOSE LABon 03-12-2018 Glucose mass conc 135 mg/dL High 70-100 The [facility] Comment on above: Performed By: #### 3 5200, 04003, 17152, 11210 #### [facility] [address] [place] [address], [facility] Glucose mass conc 188 mg/dL High 70-100 [facility] Comment on above: Performed By: #### 3 5200, 51541, 57002, 32805 #### [facility] [address] [place] [address], [facility] Glucose mass conc 130 mg/dL High 70-100 The [facility] Comment on above: Performed By: #### 3 5200, 60329, 04221, 69241 #### [facility] [address] [place] [address], [facility] Glucose mass conc 139 mg/dL High 70-100 The [facility] Comment on above: Performed By: #### 3 5200, 49256, 48506, 45389 #### [facility] [address] UFH HEPARIN ASSAYon 03-12-19 19 UNFRACTIONATED HEPARIN 0.30 IU/mL Normal 0.30-0.70 Th e [facility] Comment on above: Order Comment: Yes: Add to Previous draw if able Result Comment: Kathy roxaban and Apixaban will interfere with the anti Xa assay used to monitor UFH and LMWH. Performed By: #### 3 5200, 93788, 25424, 01857 #### [facility] [address] [place] [address], [facility] APTTon 03-11-2018 aPTT Coag time (Bld) 88.3 s Critically high 25.0-35.0 The [facility] Comment on above: Order Comment: [...] OF HEPARIN. Performed By: #### 3 5200, 17743, 49010, 59587 #### [facility] [address] [place] [address], [facility] aPTT Coag time (Bld) 50.4 s High 25.0-35.0 [facility] Comment on above: Order Comment: [...] THIS PURPOSE. Performed By: #### 3 5200, 22740, 59112, 31942 #### [facility] [address] [place] [address], [facility] BASIC METABOLIC PANELon 02-0 Calcium mass conc 8.9 mg/dL Normal 8.6-10.3 [facility] Comment on above: Order Comment: No: D o not add to previous draw Performed By: #### 3 5200, 81756, 32250, 87443 #### [facility] [address] [place] [address], [facility] Chloride molar conc 101 mmol/L Normal 98-107 [facility] Comment on above: Order Comment: No: D o not add to previous draw Performed By: #### 3 5200, 96268, 05900, 64863 #### [facility] [address] [place] [address], [place] CO2 molar conc 29 mmol/L Normal 21-31 The [facility] Comment on above: Order Comment: No: D o not add to previous draw Performed By: #### 3 5200, 40908, 35922, 07897 #### [facility] [address] [place] [address], [place] Creatinine mass conc 0.55 mg/dL Low 0.60-1.20 The [facility] Comment on above: Order Comment: No: D o not add to previous draw Performed By: #### 3 5200, 20149, 62655, 42281 #### [facility] [address] [place] [address], [place] GFR/1.73 sq M predicted among blacks MDRD vol rate/area (S/P/Bld) mL/min/{1.73_m2} Normal >60 The [facility] Comment on above: Order Comment: No: D o not add to previous draw Result Comment: Calc ulation may not be valid for patients over 70 years Performed By: #### 3 5200, 10070, 44340, 41059 #### [facility] [address] [place] [address], [place] GFR/1.73 sq M predicted among non-blacks MDRD vol rate/area (S/P/Bld) mL/min/{1.73_m2} Normal >60 The [facility] Comment on above: Order Comment: No: D o not add to previous draw Result Comment: Calc ulation may not be valid for patients over 70 years Performed By: #### 3 5200, 36884, 15665, 73918 #### [facility] [address] [place] [address], [place] Glucose mass conc 152 mg/dL High 70-100 The [facility] Comment on above: Order Comment: No: D o not add to previous draw Performed By: #### 3 5200, 25776, 09854, 31986 #### [facility] [address] [place] [address], [place] Potassium molar conc 3.7 mmol/L Normal 3.5-5.1 [facility] Comment on above: Order Comment: No: D o not add to previous draw Performed By: #### 3 5200, 12682, 88075, 26508 #### [facility] [address] [facility]. [address] Sodium molar conc 138 mmol/L Normal 136-145 [facility] Comment on above: Order Comment: No: D o not add to previous draw Performed By: #### 3 5200, 71010, 23693, 46091 #### [facility] [address] [facility]. [address] Urea nitrogen mass conc 12 mg/dL Normal 7-25 T he [facility] Comment on above: Order Comment: No: D o not add to previous draw Performed By: #### 3 5200, 62509, 26822, 15138 #### [facility] [address] [facility]. [address] CBC W/DIFFon 03-11-2018 ABS BASOPHILS 0.1 10*3/uL Normal 0.0-0.2 The [facility] Comment on above: Order Comment: No: D o not add to previous draw Performed By: #### 3 5200, 32008, 85312, 71674 #### [facility] [address] [facility]. [address] ABS IMM GRANS 0.0 10*3/uL Normal 0.0-0.2 The [facility] Comment on above: Order Comment: No: D o not add to previous draw Performed By: #### 3 5200, 14241, 65517, 28170 #### [facility] [address] [facility]. [address] ABS NEUTROPHILS 4.7 10*3/uL Normal 1.6-7.6 The [facility] Comment on above: Order Comment: No: D o not add to previous draw Performed By: #### 3 5200, 22783, 48228, 02825 #### [facility] [address] [place] [address], [facility] Basophils #/vol (Bld) 0.9 % Normal 0.0-1.0 [facility] Comment on above: Order Comment: No: D o not add to previous draw Performed By: #### 3 5200, 00701, 16604, 66706 #### [facility] [address] [place] [address], [facility] Eosinophils #/vol (Bld) 0.2 10*3/uL Normal 0.0-0.5 [facility] Comment on above: Order Comment: No: D o not add to previous draw Performed By: #### 3 5200, 08365, 49695, 16472 #### [facility] [address] [place] [address], [facility] Eosinophils/100 WBC (Bld) 2.4 % Normal 0.0-6.0 [facility] Comment on above: Order Comment: No: D o not add to previous draw Performed By: #### 3 5200, 52161, 51138, 08844 #### [facility] [address] [place] [address], [facility] Erythrocyte distribution width Ratio (RBC) 16.1 % High 11.5-15.0 [facility] Comment on above: Order Comment: No: D o not add to previous draw Performed By: #### 3 5200, 48507, 97270, 50681 #### [facility] [address] [place] [address], [facility] Hematocrit Volume Fraction (Bld) 38.7 % Normal 36.0-45.0 [facility] Comment on above: Order Comment: No: D o not add to previous draw Performed By: #### 3 5200, 94902, 59978, 61452 #### [facility] [address] [place] [address], [place] Hemoglobin mass conc (Bld) 12.5 g/dL Normal 12.0-15.0 [facility] Comment on above: Order Comment: No: D o not add to previous draw Performed By: #### 3 5200, 18404, 38365, 93365 #### [facility] [address] [place] [id number], [facility] IMMATURE GRANS 0.6 % Normal 0.0-1.0 [facility] Comment on above: Order Comment: No: D o not add to previous draw Performed By: #### 3 5200, 32772, 28026, 64855 #### [facility] [address] [place] [address], [facility] Lymphocytes #/vol (Bld) 1.3 10*3/uL Normal 1.2-4.0 The [facility] Comment on above: Order Comment: No: D o not add to previous draw Performed By: #### 3 5200, 69889, 93003, 49090 #### [facility] [address] [place] [address], [facility] Lymphocytes/100 WBC (Bld) 18.6 % Low 20.0-45.0 The [facility] Comment on above: Order Comment: No: D o not add to previous draw Performed By: #### 3 5200, 93641, 88104, 70542 #### [facility] [address] [place] [address], [facility] MCH Entitic mass (RBC) 29.9 pg Normal 27.0-33.0 Th e [facility] Comment on above: Order Comment: No: D o not add to previous draw Performed By: #### 3 5200, 01676, 36946, 36602 #### [facility] [address] [place] [address], [facility] MCHC mass conc (RBC) 32.3 g/dL Normal 32.0-35.0 The [facility] Comment on above: Order Comment: No: D o not add to previous draw Performed By: #### 3 5200, 80492, 14159, 48004 #### [facility] [address] [place] [address], [facility] MCV Entitic volume (RBC) 92.6 fL Normal 82.0-98.0 The [facility] Comment on above: Order Comment: No: D o not add to previous draw Performed By: #### 3 5200, 49681, 91368, 02555 #### [facility] [address] [place] [address], [facility] Monocytes #/vol (Bld) 0.5 10*3/uL Normal 0.1-1.0 Th [facility] Comment on above: Order Comment: No: D o not add to previous draw Performed By: #### 3 5200, 88869, 58954, 69356 #### [facility] [address] [place] [address], [facility] MONOS 7.0 % Normal 5.0-12.0 The [facility] Comment on above: Order Comment: No: D o not add to previous draw Performed By: #### 3 5200, 83763, 08157, 61897 #### [facility] [address] [place] [address], [facility] Neutrophils/100 WBC (Bld) 70.5 % Normal 40.0-72.0 The [facility] Comment on above: Order Comment: No: D o not add to previous draw Performed By: #### 3 5200, 21100, 41356, 04999 #### [facility] [address] [place] [address], [facility] Nucleated RBC/100 WBC Ratio (Bld) 0 % Normal 0-0 The [facility] Comment on above: Order Comment: No: D o not add to previous draw Performed By: #### 3 5200, 78279, 80413, 46861 #### [facility] [address] [place] [address], [facility] PLAT CNT 189 10*3/uL Normal 150-400 The [facility] Comment on above: Order Comment: No: D o not add to previous draw Performed By: #### 3 5200, 01819, 73906, 44757 #### [facility] [address] [place] [address], [facility] RBC #/vol (Bld) 4.18 10*6/uL Normal 3.80-5.00 The [facility] Comment on above: Order Comment: No: D o not add to previous draw Performed By: #### 3 5200, 01072, 99645, 32908 #### [facility] [address] [place] [address], [facility] WBC #/vol (Bld) 6.71 10*3/uL Normal 4.00-10.60 The [facility] Comment on above: Order Comment: No: D o not add to previous draw Performed By: #### 3 5200, 93221, 20223, 81593 #### [facility] [address] [place] [address], [facility] POC GLUCOSE LABon 03-11-2018 Glucose mass conc 128 mg/dL High 70-100 The [facility] Comment on above: Performed By: #### 3 5200, 99551, 48525, 88457 #### [facility] [address] [place] [address], [facility] Glucose mass conc 100 mg/dL Normal 70-100 The [facility] Comment on above: Performed By: #### 3 5200, 11166, 47405, 59196 #### [facility] [address] [place] [address], [facility] Glucose mass conc 158 mg/dL High 70-100 The [facility] Comment on above: Performed By: #### 3 5200, 27183, 22066, 49329 #### [facility] [address] [place] [id number], [facility] UFH HEPARIN ASSAYon 03-11-19 19 UNFRACTIONATED HEPARIN 0.35 IU/mL Normal 0.30-0.70 Th e [facility] Comment on above: Order Comment: Yes: Add to Previous draw if able Result Comment: Kathy roxaban and Apixaban will interfere with the anti Xa assay used to monitor UFH and LMWH. RESULTS CHECKED AND CALLED. ACCURATELY READ BACK BY ANANYA GUERRA,KOMAL AT 15:51 CLINICAL SIGNIFICANCE OF THE PTT RESULT IS QUESTIONABLE IN THE PRESENCE OF HEPARIN. Performed By: #### 3 5200, 74926, 39010, 54246 #### [facility] [address] UNFRACTIONATED HEPARIN 0.28 IU/mL Low 0.30-0.70 Th e [facility] Comment on above: Result Comment: Kathy roxaban and Apixaban will interfere with the anti Xa assay used to monitor UFH and LMWH. Performed By: #### 3 5200, 28214, 06813, 96902 #### [facility] [address] APTTon 03-10-2018 aPTT Coag time (Bld) 53.0 s High 25.0-35.0 The [facility] Comment on above: Order Comment: [...] OF HEPARIN. Performed By: #### 3 5200, 24306, 86120, 13229 #### [facility] [address] [place] [address], [facility] aPTT Coag time (Bld) 47.7 s High 25.0-35.0 [facility] Comment on above: Order Comment: [...] THIS PURPOSE. Performed By: #### 3 5200, 45800, 75817, 80946 #### [facility] [address] [place] [address], [facility] aPTT Coag time (Bld) 68.2 s High 25.0-35.0 [facility] Comment on above: Order Comment: No: [...] THIS PURPOSE. Performed By: #### 3 5200, 55116, 60267, 24726 #### [facility] [address] BASIC METABOLIC PANELon 02-0 Calcium mass conc 8.7 mg/dL Normal 8.6-10.3 [facility] Comment on above: Order Comment: No: D o not add to previous draw Performed By: #### 3 5200, 46810, 75505, 43232 #### [facility] [address] [facility] [place] [address], [facility] Chloride molar conc 100 mmol/L Normal 98-107 The [facility] Comment on above: Order Comment: No: D o not add to previous draw Performed By: #### 3 5200, 94669, 50105, 49790 #### [facility] [address] [place] [address], [facility] CO2 molar conc 28 mmol/L Normal 21-31 The [facility] Comment on above: Order Comment: No: D o not add to previous draw Performed By: #### 3 5200, 26183, 83549, 48344 #### [facility] [address] [place] [address], [facility] Creatinine mass conc 0.57 mg/dL Low 0.60-1.20 [facility] Comment on above: Order Comment: No: D o not add to previous draw Performed By: #### 3 5200, 03427, 57797, 73713 #### [facility] [address] [place] [address], [facility] GFR/1.73 sq M predicted among blacks MDRD vol rate/area (S/P/Bld) mL/min/{1.73_m2} Normal >60 The [facility] Comment on above: Order Comment: No: D o not add to previous draw Result Comment: Calc ulation may not be valid for patients over 70 years Performed By: #### 3 5200, 95088, 54001, 37194 #### [facility] [address] [place] [address], [facility] GFR/1.73 sq M predicted among non-blacks MDRD vol rate/area (S/P/Bld) mL/min/{1.73_m2} Normal >60 The [facility] Comment on above: Order Comment: No: D o not add to previous draw Result Comment: Calc ulation may not be valid for patients over 70 years Performed By: #### 3 5200, 30432, 39738, 25837 #### [facility] [address] [place] [address], [facility] Glucose mass conc 141 mg/dL High 70-100 [facility] Comment on above: Order Comment: No: D o not add to previous draw Performed By: #### 3 5200, 34621, 47199, 84290 #### [facility] [address] [place] [address], [facility] Potassium molar conc 4.0 mmol/L Normal 3.5-5.1 [facility] Comment on above: Order Comment: No: D o not add to previous draw Performed By: #### 3 5200, 24274, 97387, 90398 #### [facility] [address] [place] [address], [facility] Sodium molar conc 136 mmol/L Normal 136-145 [facility] Comment on above: Order Comment: No: D o not add to previous draw Performed By: #### 3 5200, 30800, 20570, 25311 #### [facility] [address] [place] [address], [facility] Urea nitrogen mass conc 12 mg/dL Normal 7-25 T [facility] Comment on above: Order Comment: No: D o not add to previous draw Performed By: #### 3 5200, 08147, 58161, 01310 #### [facility] [address] [place] [address], [facility] CBC COMPLETE BLOOD COUNTon 0 - Erythrocyte distribution width Ratio (RBC) 16.1 % High 11.5-15.0 [facility] Comment on above: Order Comment: No: D o not add to previous draw Performed By: #### 3 5200, 66118, 20045, 27367 #### [facility] [address] [place] [address], [facility] Hematocrit Volume Fraction (Bld) 39.4 % Normal 36.0-45.0 [facility] Comment on above: Order Comment: No: D o not add to previous draw Performed By: #### 3 5200, 94581, 81007, 47132 #### [facility] [address] [place] [address], [facility] Hemoglobin mass conc (Bld) 12.9 g/dL Normal 12.0-15.0 [facility] Comment on above: Order Comment: No: D o not add to previous draw Performed By: #### 3 5200, 63733, 84540, 81453 #### [facility] [address] [place] [address], [facility] MCH Entitic mass (RBC) 30.0 pg Normal 27.0-33.0 Th [facility] Comment on above: Order Comment: No: D o not add to previous draw Performed By: #### 3 5200, 38571, 56044, 61957 #### [facility] [address] MCHC mass conc (RBC) 32.7 g/dL Normal 32.0-35.0 [facility] Comment on above: Order Comment: No: D o not add to previous draw Performed By: #### 3 5200, 14954, 95883, 64490 #### [facility] [address] MCV Entitic volume (RBC) 91.6 fL Normal 82.0-98.0 [facility] Comment on above: Order Comment: No: D o not add to previous draw Performed By: #### 3 5200, 12055, 89427, 82196 #### [facility] [address] Nucleated RBC/100 WBC Ratio (Bld) 0 % Normal 0-0 [facility] Comment on above: Order Comment: No: D o not add to previous draw Performed By: #### 3 5200, 64390, 29878, 27355 #### [facility] [address] PLAT CNT 200 10*3/uL Normal 150-400 [facility] Comment on above: Order Comment: No: D o not add to previous draw Performed By: #### 3 5200, 53443, 53752, 12943 #### [facility] [address] [place] [address], [facility] RBC #/vol (Bld) 4.30 10*6/uL Normal 3.80-5.00 [facility] Comment on above: Order Comment: No: D o not add to previous draw Performed By: #### 3 5200, 40840, 78689, 55146 #### [facility] [address] WBC #/vol (Bld) 7.21 10*3/uL Normal 4.00-10.60 [facility] Comment on above: Order Comment: No: D o not add to previous draw Performed By: #### 3 5200, 14926, 60704, 41545 #### [facility] [address] [facility]. [address] UFH HEPARIN ASSAYon 03-10-19 19 UNFRACTIONATED HEPARIN 0.33 IU/mL Normal 0.30-0.70 Th e [facility] Comment on above: Result Comment: Widener roxaban and Apixaban will interfere with the anti Xa assay used to monitor UFH and LMWH. UFH ADDED PER PROTOCOL Performed By: #### 3 5200, 25396, 12067, 34090 #### [facility] [address] [facility]. [address] UNFRACTIONATED HEPARIN 0.89 IU/mL High 0.30-0.70 Th [facility] Comment on above: Order Comment: No: D o not add to previous draw Result Comment: Kathy roxaban and Apixaban will interfere with the anti Xa assay used to monitor UFH and LMWH. Performed By: #### 3 5200, 06716, 30367, 92384 #### [facility] [address] [facility]. [address] APTTon 03-09-2018 aPTT Coag time (Bld) 67.5 s High 25.0-35.0 [facility] Comment on above: Order Comment: Yes: [...] HEPARIN. Performed By: #### 8 5123 #### [facility] [address] [place] [address], [facility] aPTT Coag time (Bld) 58.4 s High 25.0-35.0 [facility] Comment on above: Order Comment: [...] PURPOSE. Performed By: #### 8 5123 #### [facility] [address] [place] [address], [facility] aPTT Coag time (Bld) 89.8 s Critically high 25.0-35.0 [facility] Comment on above: Order Comment: [...] 14:02 Performed By: #### 8 5123 #### [facility] [address] [place] [address], [facility] aPTT Coag time (Bld) 80.2 s Critically high 25.0-35.0 [facility] Comment on above: Order Comment: [...] PURPOSE. Performed By: #### 8 5123 #### [facility] [address] aPTT Coag time (Bld) 47.3 s High 25.0-35.0 [facility] Comment on above: Order Comment: [...] THIS PURPOSE. Performed By: #### 5 6101, 72137 #### [facility] [address] [facility]. [address] BNP (B-TYPE NATRIURETIC PEPT ISSA)on 03-09-2018 Natriuretic peptide B mass conc (Bld) 596 pg/mL High 0-100 The [facility] Comment on above: Order Comment: Yes: Add to Previous draw if able Result Comment: Give n the appropriate clinical setting a BNP result of >100 pg/mL indicates congestive heart failure. Performed By: #### 8 5123 #### [facility] [address] [facility]. [address] CBC COMPLETE BLOOD COUNTon 0 03-09-2018 Erythrocyte distribution width Ratio (RBC) 16.1 % High 11.5-15.0 [facility] Comment on above: Order Comment: Yes: Add to Previous draw if able Performed By: #### 8 5123 #### [facility] [address] Hematocrit Volume Fraction (Bld) 42.2 % Normal 36.0-45.0 [facility] Comment on above: Order Comment: Yes: Add to Previous draw if able Performed By: #### 8 5123 #### [facility] [address] [place] [address], [facility] Hemoglobin mass conc (Bld) 13.7 g/dL Normal 12.0-15.0 [facility] Comment on above: Order Comment: Yes: Add to Previous draw if able Performed By: #### 8 5123 #### [facility] [address] MCH Entitic mass (RBC) 30.0 pg Normal 27.0-33.0 [facility] Comment on above: Order Comment: Yes: Add to Previous draw if able Performed By: #### 8 5123 #### [facility] [address] MCHC mass conc (RBC) 32.5 g/dL Normal 32.0-35.0 [facility] Comment on above: Order Comment: Yes: Add to Previous draw if able Performed By: #### 8 5123 #### [facility] [address] MCV Entitic volume (RBC) 92.5 fL Normal 82.0-98.0 [facility] Comment on above: Order Comment: Yes: Add to Previous draw if able Performed By: #### 8 5123 #### [facility] [address] [facility]. [address] Nucleated RBC/100 WBC Ratio (Bld) 0 % Normal 0-0 [facility] Comment on above: Order Comment: Yes: Add to Previous draw if able Performed By: #### 8 5123 #### [facility] [address] PLAT CNT 208 10*3/uL Normal 150-400 [facility] Comment on above: Order Comment: Yes: Add to Previous draw if able Performed By: #### 8 5123 #### [facility] [address] [facility]. [address] RBC #/vol (Bld) 4.56 10*6/uL Normal 3.80-5.00 [facility] Comment on above: Order Comment: Yes: Add to Previous draw if able Performed By: #### 8 5123 #### [facility] [address] [place] [address], [facility] WBC #/vol (Bld) 9.26 10*3/uL Normal 4.00-10.60 [facility] Comment on above: Order Comment: Yes: Add to Previous draw if able Performed By: #### 8 5123 #### [facility] [address] [place] [address], [facility] Erythrocyte distribution width Ratio (RBC) 15.9 % High 11.5-15.0 [facility] Comment on above: Order Comment: Yes: Add to Previous draw if able Performed By: #### 5 0608 #### [facility] [address] [place] [address], [facility] Hematocrit Volume Fraction (Bld) 38.2 % Normal 36.0-45.0 [facility] Comment on above: Order Comment: Yes: Add to Previous draw if able Performed By: #### 5 0608 #### [facility] [address] [place] [address], [facility] Hemoglobin mass conc (Bld) 12.4 g/dL Normal 12.0-15.0 [facility] Comment on above: Order Comment: Yes: Add to Previous draw if able Performed By: #### 5 0608 #### [facility] [address] [place] [address], [facility] MCH Entitic mass (RBC) 29.5 pg Normal 27.0-33.0 [facility] Comment on above: Order Comment: Yes: Add to Previous draw if able Performed By: #### 5 0608 #### [facility] [address] [place] [id number], [facility] MCHC mass conc (RBC) 32.5 g/dL Normal 32.0-35.0 [facility] Comment on above: Order Comment: Yes: Add to Previous draw if able Performed By: #### 5 0608 #### [facility] [address] MCV Entitic volume (RBC) 91.0 fL Normal 82.0-98.0 [facility] Comment on above: Order Comment: Yes: Add to Previous draw if able Performed By: #### 5 0608 #### [facility] [address] [facility] [address] Nucleated RBC/100 WBC Ratio (Bld) 0 % Normal 0-0 [facility] Comment on above: Order Comment: Yes: Add to Previous draw if able Performed By: #### 5 0608 #### [facility] [address] [facility] [place] [address], [facility] PLAT CNT 193 10*3/uL Normal 150-400 [facility] Comment on above: Order Comment: Yes: Add to Previous draw if able Performed By: #### 5 0608 #### [facility] [address] [facility] [address] RBC #/vol (Bld) 4.20 10*6/uL Normal 3.80-5.00 [facility] Comment on above: Order Comment: Yes: Add to Previous draw if able Performed By: #### 5 0608 #### [facility] [address] [facility] [address] WBC #/vol (Bld) 8.57 10*3/uL Normal 4.00-10.60 [facility] Comment on above: Order Comment: Yes: Add to Previous draw if able Performed By: #### 5 0608 #### [facility] [address] [place] [address], [facility] ELECTROLYTE PANELon 03-09-19 19 Chloride molar conc 98 mmol/L Normal 98-107 [facility] Comment on above: Order Comment: Yes: Add to Previous draw if able Performed By: #### 3 5200, 61353, 93092, 84232 #### [facility] [address] [place] [address], [facility] CO2 molar conc 26 mmol/L Normal 21-31 The [facility] Comment on above: Order Comment: Yes: Add to Previous draw if able Performed By: #### 3 5200, 01346, 33087, 97820 #### [facility] [address] [place] [address], [facility] Potassium molar conc 4.0 mmol/L Normal 3.5-5.1 [facility] Comment on above: Order Comment: Yes: Add to Previous draw if able Performed By: #### 3 5200, 10376, 23279, 72442 #### [facility] [address] [place] [address], [facility] Sodium molar conc 135 mmol/L Low 136-145 [facility] Comment on above: Order Comment: Yes: Add to Previous draw if able Performed By: #### 3 5200, 25526, 68491, 38445 #### [facility] [address] [place] [address], [facility] MAGNESIUM BLOODon 03-09-2018 Magnesium mass conc 1.2 mg/dL Low 1.9-2.7 [facility] Comment on above: Order Comment: Yes: Add to Previous draw if able Performed By: #### 3 5200, 05367, 13551, 80359 #### [facility] [address] [facility] [place] [address], [facility] PORTABLE CHEST 1 VIEWon PORTABLE CHEST 1 VIEW [facility] Department of Radiology [address] [place] [address] Patient Name: JACQUELYN KAPLAN : 1945 Sex: F Age: Race: White Pt. Location: [id number] Patient Status: I Ordered Date: 03/09/2018 2:15:00 [...] findings. Electronically signed by:Peña Díaz. Transcribed by: [email or web address], User Resident: BETH MILTON Electronically Signed by: PEÑA DÍAZ @ 03/09/2018 01:31 PM I personally read this/these film(s) with this resident Normal [facility] Comment on above: Order Comment: Yes: Add to Previous draw if able PROTHROMBIN TIMEon 9 INR Coag RelTime (PPP) 1.78 {INR} High 0.91-1.16 Th e [facility] Comment on above: Result Comment: ACCC [...] 1995;108:[id number]. Performed By: #### 8 5123 #### [facility] [address] Prothrombin time (PT) Coag time (PPP) 20.8 s High 12.3-14.8 [facility] Comment on above: Result Comment: ALL RESULTS MUST BE INTERPRETED WITH RESPECT TO BLOOD DRAWING ARTIFACT OR DILUTION ERROR OF ANTICOAGULANT AT THE TIME OF SAMPLING. Performed By: #### 8 5123 #### [facility] [address] INR Coag RelTime (PPP) 2.82 {INR} High 0.91-1.16 [facility] Comment on above: Order Comment: [...] CHEST 1995;108:[id number]. Performed By: #### 5 6101, 87229 #### [facility] [address] [facility]. [address] Prothrombin time (PT) Coag time (PPP) 29.9 s High 12.3-14.8 [facility] Comment on above: Order Comment: No: D o not add to previous draw Result Comment: ALL RESULTS MUST BE INTERPRETED WITH RESPECT TO BLOOD DRAWING ARTIFACT OR DILUTION ERROR OF ANTICOAGULANT AT THE TIME OF SAMPLING. Performed By: #### 5 6101, 07791 #### [facility] [address] [facility] [place] [address], [facility] TROPONIN-Ion 03-09-2018 Troponin I.cardiac mass conc 0.01 ng/mL Normal 0.00-0.04 [facility] Comment on above: Order Comment: No: D o not add to previous draw Result Comment: REFE RENCE RANGES: 0.00 - 0.04 ng/ml NORMAL 0.05 - 0.50 ng/ml INDETERMINATE > 0.50 ng/ml CONSISTENT WITH AN M.I. Performed By: #### 3 [id number] #### [facility] [address] [place] [address], [facility] Troponin I.cardiac mass conc 0.01 ng/mL Normal 0.00-0.04 [facility] Comment on above: Order Comment: No: D o not add to previous draw Result Comment: REFE RENCE RANGES: 0.00 - 0.04 ng/ml NORMAL 0.05 - 0.50 ng/ml INDETERMINATE > 0.50 ng/ml CONSISTENT WITH AN M.I. Performed By: #### 3 [id number] #### [facility] [address] Troponin I.cardiac mass conc 0.01 ng/mL Normal 0.00-0.04 [facility] Comment on above: Order Comment: No: D o not add to previous draw Result Comment: REFE RENCE RANGES: 0.00 - 0.04 ng/ml NORMAL 0.05 - 0.50 ng/ml INDETERMINATE > 0.50 ng/ml CONSISTENT WITH AN M.I. Performed By: #### 3 5200, [id number], [id number], [id number] #### [facility] [address] [facility] TSH3on 03-09-2018 TSH 3RD GENERATION 3.21 uIU/mL Normal 0.34-5.60 [facility] Comment on above: Order Comment: Yes: Add to Previous draw if able Performed By: #### 3 5200, [id number], [id number], [id number] #### [facility] [address] [facility] UFH HEPARIN ASSAYon 03-09-19 19 UNFRACTIONATED HEPARIN >1.00 Critically high 0.30-0.7 0 [facility] Comment on above: Result Comment: Widener roxaban and Apixaban will interfere with the anti Xa assay used to monitor UFH and LMWH. Performed By: #### 8 [id number] #### [facility] [address] [facility] UNFRACTIONATED HEPARIN >1.00 Critically high 0.30-0.7 0 [facility] Comment on above: Order Comment: Yes: Add to Previous draw if able Result Comment: Kathy roxaban and Apixaban will interfere with the anti Xa assay used to monitor UFH and LMWH. UFH = 2.28. UFH MAY BE ELEVATED IN THE PRESENCE OF OTHER ANTI-XA INHIBITORS. Performed By: #### 8 [id number] #### [facility] [address] [address], [facility] UNFRACTIONATED HEPARIN >1.00 Critically high 0.30-0.7 0 [facility] Comment on above: Result Comment: Kathy [...] 2.62 Performed By: #### 8 [id number] #### [facility] 3000 [facility]. [address] Vital Signs Date Time Vital Sign Value Performing Clinician Leigh weiss 10-27-2022 12:14-0400 Diastolic blood pressure 53 mm[Hg] MD Gumaro Ordonez Work Phone: [facility] 10-27-2022 12:14-0400 Heart rate 73 /min MD Gumaro Ordonez Work Phone: [facility] 10-27-2022 12:14-0400 Respiratory rate 18 /min MD Gumaro Ordonez Work Phone: [facility] 10-27-2022 12:14-0400 SaO2% (BldA) [Mass fraction] 95 % MD Gumaro Ordonez Work Phone: [facility] 10-27-2022 12:14-0400 Systolic blood pressure 128 mm[Hg] MD Gumaro Ordonez Work Phone: [facility] 10-27-2022 10:54-0400 Body height 160.02 cm MD Gumaro Ordonez Work Phone: [facility] 10-27-2022 10:54-0400 Body weight 122.46 kg MD Gumaro Ordonez Work Phone: [facility] Encounters Encounter Date Encounter Type Care Provider Facility Start: 02-27-2023 ambulatory JOLENE CARR [facility] Start: 02-27-2023 ambulatory [facility] Start: 01-12-2023 End: 01-12-2023 ambulatory [facility] Start: 12-04-2022 End: 12-04-2022 ambulatory Joe Cosme Facility:[facility] Start: 12-04-2022 End: 12-04-2022 ambulatory MD Gumaro Ordonez Work Phone: [facility] Work Phone: Start: 12-04-2022 End: 12-04-2022 Patient encounter procedure MD Gumaro Ordonez Work Phone: [facility] Work Phone: Start: 11-14-2022 End: 11-14-2022 ambulatory [facility] Start: 10-27-2022 End: 10-27-2022 ambulatory Joe Cosme Facility:[facility] Start: 10-27-2022 End: 10-27-2022 Admission to same day surgery center MD Gumaro Ordonez Work Phone: [facility] Work Phone: Start: 10-18-2022 End: 10-18-2022 ambulatory [facility] Start: 10-12-2022 ambulatory Mikey NIELSON Facility:[facility] Start: 10-11-2022 End: 10-15-2022 ambulatory Mikey NIELSON Facility:[id number] Start: 09-22-2022 End: 09-22-2022 ambulatory [facility] Start: 07-17-2022 End: 07-17-2022 ambulatory [facility] Start: 05-01-2022 End: 05-02-[address] GUMARO ORDONEZ Facility:[facility] Start: 03-22-2022 End: 03-23-[address] GUMARO ORDONEZ Facility:[facility] Start: 10-31-2021 End: 11-01-[address] GUMARO ORDONEZ Facility:[facility] Start: 09-28-2021 End: 09-29-2021 ambulatory ROSA ROSA Facility: Start: 03-18-2018 End: 03-24-2018 Evaluation and management of inpatient PHAM GABRIEL Facility:[facility] Start: 03-09-2018 End: 03-13-2018 Evaluation and management of inpatient STEPHANIE CARBALLO Facility:[facility] Procedures Date Procedure Procedure Detail Performing Clinician Start: 12-04-2022 Capsule endoscopy MD Gumaro Ordonez Work Phone: Start: 10-27-2022 Esophagogastroduodenoscopy MD Gumaro Jiang er Work Phone: Start: 03-12-2018 Gnosticist of Cardiac Rhythm, Single MOSHRIK ABD ALAMIR [...] Date Care Activity Detail Author Start: 12-04-2022 [facility] Start: 10-27-2022 [facility] Patient Education Colon polyps H emorrhoids (DC) Diverticulosis (DC) Hiatal Hernia (DC) [facility] Work Phone: Payers Date Payer Category Payer Medicare [id number] 2022 Self-pay 1958 Medicare [id number] 1958 Unknown [id number] 1945 Unknown [id number] 2.16.8 [id number] 1945 Unknown [id number] 2.16.8 [id number] 1945 Unknown [id number] 2.16.84 [id number] 1945 Unknown [id number] 2.16.84 [id number] 1945 Unknown [id number] 2.16.84 [id number] 1945 Unknown [id number] 2.16.84 [id number] 1945 Unknown [id number] 2.16.8 [id number] Unknown Carmen BC/BS [id number] Unknown [id number] 2.16.8 [id number] Unknown [id number] 2.16.8 [id number] Social History Date Type Detail Facility Start: [facility]-27-2022 [facility] Start: 1945 Sex Assigned At Female F [facility] Goals Date Patient Goal Desired Activity /State Clinical Notes 09-29-2021 to 02-27-2023 Note Date & Type Note Facility 02-27-2023 Note ------ Attestation signed by Jolene Carr MD at 02/27/2023 9:26 AM I was present for the entire procedure. ------ Cardiology DC Cardioversion Procedure Note Date: 02/27/23 Type of procedure: DC Cardioversion. Performed by: Rochelle Diane MD / Jolene Carr MD Informed consent: Patient Indication: Atrial fibrillation with RVR Preparation and technique: The patient was brought into the procedure room. After an informed consent was obtained following a discussion with the patient where I explained the risk and benefit of the procedure that is not limited to skin campbell, fluid in the lungs, heart attack, stroke, or even , though that is very rare. EKG was performed to confirm that the patient was in atrial fibrillation/flutter. Patches were placed in anteroposterior direction and once patient was made comfortable with Versed 4mg and Fentanyl 50mcg. Following sedation, the patient underwent synchronized cardioversion using 360J with successful conversion to sinus rhythm. Post procedure, the patient was noted to be comfortable and responsive without any abnormalities in her vitals or function. EKG post cardioversion showed normal sinus rhythm. No hemodynamic complications noted. Rochelle Diane MD Pulling Unit Floorhand - PGY5 [facility] 02-27-2023 Note Patient: Jacquelyn salazar Procedure Information Date/Time: 02/27/23 1015 Procedure: Cardioversion/defibrillation Location: [facility]ING [facility] / [facility] (Cath) Providers: Jolene Carr MD Clinical information reviewed: Allergies Meds OB Status Physical Exam Airway Mallampati: III TM distance: >3 FB Neck ROM: full Cardiovascular Rhythm: regular Rate: normal Dental Pulmonary Abdominal Anesthesia Plan Additional Equipment Requests [facility] 01-12-2023 Note [place] [facility] Subjective Jacquelyn Kaplan is a [...] status post TAVR in May 2018 at [facility]. This was using a 23 mm Obregon [...] She had a discussion with her primary senior systems developer Dr. Burnett and they agreed that left [...] Rfl: coenzyme Q-10 (more content not included)... [facility] 11-29-2022 Note I called and spoke t o patient. Explained the LAAO procedure, pre/post-procedure imaging, post-procedure medications, risks and benefits. She would like to proceed with the procedure. She is pending a video capsule study. Please schedule her for an appt with Dr. Carr for further discussion. [facility] 11-14-2022 Note [facility]TP CARDIOLOGY PROGR ESS [...] and she p (more content not included)... [facility] 11-14-2022 Note Patient here for 4 w [place] follow up GI visit. She underwent upper and lower scopes at [facility]. Per patient, Dr. Cosme cleared her to resume Xarelto, but she has not done so yet. She wanted to discuss with Dr. Burnett first. Still denies chest pain, SOB, palpitations, and bleeding. Patient expressed interest in the Watchman/Amulet device. Review of Systems Musculoskeletal: Positive for muscle weakness. All other systems reviewed and are negative. [facility] 10-18-2022 Note Patient here for fol low up TB discharge for GI bleed. She takes Xarelto for afib, but this was stopped, along with aspirin. Chest tightness and SOB has resolved and she's feeling much better. Doing more walking throughout her house. Denies lightheadedness and falls. Review of Systems Musculoskeletal: Positive for muscle weakness. All other systems reviewed and are negative. [facility] 10-18-2022 Note [facility]TP CARDIOLOGY PROGR ESS [...] daily weights, I (more content not included)... [facility] 10-11-2022 Note i [facility] 09-22-2022 Note [place] [facility] Subjective Jacquelyn Kaplan is a [...] status post TAVR in May 2018 at [facility]. This was using a 23 mm Obregon [...] , Rfl: Recent (more content not included)... [facility] 07-17-2022 Note Patient here for 6 m o follow up PAF, aortic valve disorder, CHF, carotid artery stenosis, and hypertension. She had echo in Feb 2022 at [facility]. Denies chest pain, SOB, palpitations, and bleeding on Eliquis. Had routine labs in April 2022. Review of Systems Respiratory: Positive for cough. Musculoskeletal: Positive for arthritis, back pain, joint pain, muscle weakness and myalgias. Neurological: Positive for loss of balance. All other systems reviewed and are negative. [facility] 07-17-2022 Note [facility]TP CARDIOLOGY PROGR ESS [...] provided. Patient verbal (more content not included)... [facility] 03-22-2022 Note PROCEDURE: XR ANKLE LT [...] authenticated by: FABRICIO BANKS Date: 2022-03-22 10:42 [facility] 09-29-2021 Note PROCEDURE: XR ANKLE LT [...] authenticated by: GENE BERMUDEZ Date: 2021-09-29 10:11 [facility] Evaluation note No assessment information availa [facility] Work Phone: Summary Purpose Family History [...] (more content not included)... Note MR#: [id number] [facility] Pt. Name: Jacquelyn Kaplan Admitted: 03/18/2018 Discharged: [...] chest pain. She went to [facility], was found to have elevated BNP. [...] section and content) DATE CREATED AUTHOR 03/26/2018 [facility] DATE CREATED AUTHOR AUTHOR'S ORGANIZ ATION 05/10/2022 [facility] DATE CREATED AUTHOR AUTHOR'S ORGANIZ ATION 11/08/2022 [facility] DATE CREATED AUTHOR AUTHOR'S ORGANIZ ATION 01/17/2023 [facility] DATE CREATED AUTHOR AUTHOR'S SKY ATION 03/05/2023 [facility] Care Teams (unrecognized sec tion and [...] BE BASED ON THE PRIMARY CLINICAL RECORDS. [facility] [employer] provides no warranty or guarantee of the accuracy or completeness of information in this document.
== END 2023-03-06 10:25 | disposition home or self-care (01) ==
LOC: WC 10:25
PROVIDERS: PCP Family Medicine; Visit Provider Podiatrist Foot & Ankle Surgery
DX: E11.621 Type 2 diabetes mellitus with foot ulcer (principal); L97.428 Non-pressure chronic ulcer of left heel and midfoot with other specified severity; S80.812A Abrasion, left lower leg, initial encounter
CPT/HCPCS: A6213; G0463

== ENCOUNTER 2023-03-21 09:56 | Outpatient (OUT) | payer MEDICARE, SELFPAY ==
--- NOTE | 2023-03-21 | XR_ITS ---
The [address] [address] Patient Name: PERCY SAMUELS MRN: [id number] date: 1945 Sex: F Assigned Patient Location: [facility] Current Patient Location: [facility] Accession/Order Number: [id number] Exam Date: 03/21/2023 10:00 Report Date: 03/21/2023 16:23 At the request of: ROSA ROSA Procedure: XR foot LT min 3V STUDY: XR ankle LT min 3V, XR foot LT min 3V, [id number], [id number] HISTORY: LEFT ANKLE PAIN COMPARISON: Left ankle and a left foot x-rays 01/24/2023. FINDINGS: Tibial and ankle hardware is intact and similar in alignment. Lucency at the bone hardware interface along the screw the passes anterior-posterior from the calcaneus to the distal tibia, similar. There is also lucency at the bone hardware interface of the transverse oriented screw at the distal intramedullary tibial melissa, similar. Severe degenerative changes of the ankle and hindfoot, similar. Disuse osteopenia, similar. Mild osteoarthritis at the first metatarsophalangeal joint, similar. No acute fracture demonstrated. XR/XR foot LT min 3V IMPRESSION: Appearance of the left ankle and foot is not significant change compared with 01/24/2023. Electronically authenticated by: SCOTT GONZALEZ Date: 03/21/2023 16:23
--- NOTE | 2023-03-21 | XR_ITS ---
The [address] [address] Patient Name: PERCY SAMUELS MRN: [id number] date: 1945 Sex: F Assigned Patient Location: [facility] Current Patient Location: [facility] Accession/Order Number: [id number] Exam Date: 03/21/2023 10:00 Report Date: 03/21/2023 16:23 At the request of: ROSA ROSA Procedure: XR ankle LT min 3V STUDY: XR ankle LT min 3V, XR foot LT min 3V, [id number], [id number] HISTORY: LEFT ANKLE PAIN COMPARISON: Left ankle and a left foot x-rays 01/24/2023. FINDINGS: Tibial and ankle hardware is intact and similar in alignment. Lucency at the bone hardware interface along the screw the passes anterior-posterior from the calcaneus to the distal tibia, similar. There is also lucency at the bone hardware interface of the transverse oriented screw at the distal intramedullary tibial melissa, similar. Severe degenerative changes of the ankle and hindfoot, similar. Disuse osteopenia, similar. Mild osteoarthritis at the first metatarsophalangeal joint, similar. No acute fracture demonstrated. XR/XR ankle LT min 3V IMPRESSION: Appearance of the left ankle and foot is not significant change compared with 01/24/2023. Electronically authenticated by: SCOTT GONZALEZ Date: 03/21/2023 16:23
--- OUTSIDE RECORDS SUMMARY | 2023-03-21 10:14 | XMS_ITS | CCD ---
Author Name Unknown Address [address] [place] [address] Organization [facility] Care Team Providers Care Senior Information Security Architect Name Role Phone STEPHANIE CARBALLO Referring Unavailable SELF, REFERRED Primary Care Unavailable RAGHAVENDRA PERRY Admitting Unavailable DAVID SIMMONS Attending Unavailable [place] Procedure Practitioner Unavailab OMEGA Ramirez Surgeon Unavailable [place] Procedure Practitioner Unavailab NATA Tinoco ABD Surgeon Unavailable DAVID GABRIEL Admitting Unavailable BERNADETTEDAVID Attending Unavailable SELF, REFERRED Primary Care Unavailable [...] NADERER, DR GUMARO Fernandes Primary Care Unavailable MILLSTADT, DR FABRICIO Novak Consulting Unavailable HIGHLANDER, ROSA Wadsworth Admitting Unavailable HIGHLANDER, ROSA Wadsworth Attending Unavailable HIGHLANDER, PETER D Consulting Unavailable Mikey NIELSON Attending Unavailable MD Joe Cosme Attending Provider [phone] MD Gumaro Ordonez Primary Care Provider [phone] Joe Cosme Attending Unavailable Gumaro Ordonez Primary Care Unavailable Joe Cosme Admitting Unavailable Joe Cosme Attending Unavailable Gumaro Ordonez Primary Care Unavailable Jeo Cosme Admitting Unavailable MOUKARBEL, JOLENE Attending Unavailable JOLENE CARR Attending Unavailable DEN BURNETT Attending Unavailable DEN BURNETT Attending Unavailable JOLENE CARR Referring Unavailable JOLENE CARR Admitting Unavailable JOLENE CARR Attending Unavailable JOLENE CARR Referring Unavailable JOLENE CARR Referring Unavailable JOLENE CARR Attending Unavailable DEN BURNETT Attending Unavailable Allergies Allergy Classification Reported Allergen(s) Allergy Type Date of Onset Reaction(s) Facility (3 sources) Sulfonamides (Antibiotic); Translations: [SULFA (SULFONAMIDE ANTIBIOTICS)] Drug allergy (disorder) 07-11-2013 [facility] Repository (1 source) Sulfonamides (Antibiotic) Drug allergy (disorder) 10-27-2022 [facility] Repository Medications Current Medications Medication [...] disease (1 source) Atherosclerotic heart disease of [place] coronary artery without angina pectoris; Translations: [ATHSCL HEART DISEASE OF [place] CORONARY ARTERY W/O ANG PCTRS] Onset: 9 [...] 9 Chronic Other aftercare (1 source) 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; Translations: [OTH NEWSPAPER MANAGER CURRENT DRUG THERAPY] Onset: 3 Episodic Other aftercare (1 source) manager terminal (current) use of anticoagulants; Translations: [manager terminal (current) use of anticoagulants] Onset: 3 Episodic Other diseases of veins and lymphatics (1 source) Venous insufficiency (chronic) (peripheral); Translations: [VENOUS INSUFFICIENCY (CHRONIC) (PERIPHERAL)] Onset: 9 Episodic Other gastrointestinal disorders (1 source) Angiodysplasia of colon with hemorrhage; Translations: [Angiodysplasia of colon with hemorrhage] Onset: 3 Episodic Other gastrointestinal disorders (2 sources) Personal history of other diseases of the digestive system; Translations: [Personal history of other diseases of the digestive system] Onset: 4 Episodic Other lower respiratory disease (2 sources) [...] Value Interpretation Reference Range Facility Office Visiton 03-19-2023 Follow-up visit [id number] PrateeksparklePercy 1945 F Date Provider Department Center 03/19/2023 JOLENE LOPEZ EDEN Ge Family History Problem Relation Age of Onset Aortic stenosis Father Other Father Family Status - Relation Status Age at Father Level of Service:94666 [place] OFFICE/OUTPATIENT ESTABLISHED HIGH MDM 40 MIN Normal [facility] Prep for Procedureon 024 Prep for Procedure [id number] VirallesliPercy Roque 1945 F Date Provider Department Center 03/15/2023 LORE BOSE Darci Family History Problem Relation Age of Onset Aortic stenosis Father Other Father Family Status - Relation Status Age at Father Normal [facility] HPon 02-27-2023 HP History Of Present Illness Percy Kaplan is a 77 y.o. female presenting [...] reduce the risk of stroke given elevated [id number] score of 6 due to age, gender, [...] a past medical history of Atrial fibrillation ([facility]), CHF (congestive heart failure) ([facility]), Diabetes mellitus (CMS/HCC), Heart valve disease, Hypertension, PVD (peripheral vascular disease) ([facility]), and Sleep apnea. Surgical History [...] inferior infarct a (more content not included)... [facility] NURSNOTEon 02-27-2023 NURSNOTE RN educated pt on d/c instructions. RN encouraged pt to voice any questions or concerns. Pt verbalizes no questions or concerns at this time. Pt was wheeled off of unit with all of belongings. [facility] NURSNOTE Bedside swallow study completed and passed. [facility] Orders Onlyon 02-22-2023 Orders Only [id number] Percy Kaplan 1945 Date Provider Department Center 02/22/2023 GABRIEL HARTLEY EDEN [facility] Family History Problem Relation Age of Onset Aortic stenosis Father Other Father Family Status - Relation Status Age at Father [facility] Office Visiton 01-12-2023 Follow-up visit [id number] Percy Kaplan 1945 Date Provider Department Center 01/12/2023 JOLENE LOPEZ CARD [facility] Family History Problem Relation Age of Onset Aortic stenosis Father Other Father Family Status - Relation Status Age at Father Level of Service:63293 [place] OFFICE/OUTPATIENT ESTABLISHED HIGH MDM 40-54 MIN [facility] Office Visiton 11-14-2022 Follow-up visit [id number] Percy Kaplan 1945 Date Provider Department Center 11/14/2022 384DEN FABIAN CARD [facility] Family History Problem Relation Age of Onset Aortic stenosis Father Other Father Family Status - Relation Status Age at Father Level of Service:28105 [place] OFFICE/OUTPATIENT ESTABLISHED LOW MDM 20-29 MIN [facility] Glucose Glucometer (BldC) [M ass/Vol]Ordered By: Joe Cosme on 10-27-2022 Glucose [Mass/Vol] 220 mg/dL [facility] Comment on above: Random Glucose Refer ence Range is dependent on time and content of last meal. Glucose of more than 200 mg/dL in a nonstressed, ambulatory subject supports the diagnosis of Diabetes Mellitus. Glucose Poct Glucometerson 0 10-27-2022 Commemt1 Glu2: Cleaned Meter Normal [facility] Comment on above: Result Comment: PERF ORMED BY: [facility] [place] [address] PATHOLOGIST TELEGRAPH OFFICE ROUTE AIDE NORMA MONTANA M.D. Performed By: #### G LULS #### Point of Care testing , Glucose [Mass/Vol] 220 mg/dL Normal [facility] Comment on above: Result Comment: [place] Glucose Reference Range is dependent on time and content of last meal. Glucose of more than 200 mg/dL in a nonstressed, ambulatory subject supports the diagnosis of Diabetes Mellitus. Performed By: #### G MELODIE #### Point of Care testing , Ryan 10-27-2022 L Specimen: [id number] Received: 10/27/22 Status: TRAVIS Yessenia Num: [id number] Spec Type: Surgical Subm Dr: Joe Cosme MD Tissues: A Colon Biopsy (ASCND COL) Procedures: HE/2, Gross/Micro L4 Age/ Patient Sex Location Account Attending Physician Percy Kaplan 77/F [id number] Joe Cosme MD SPEC NUM: [id number] RECD: 10/27/22 STATUS: TRAVIS CASAS NUM: [id number] DELMY: 10/27/22- [facility] DR: Joe Cosme MD ENTERED: 10/27/[address] [facility] [address]: SHAMIR TYPE: Surgical DEPT: S ENTERED BY: [id number] RECV BY: [id number] ORDERED: HE/2, Gross/Micro L4 ORDERED: HE/2, Gross/Micro [...] microscopic examination confirms the diagnosis. CPT Codes 05450 Specimen: [id number] Received: 10/27/22 Status: TRAVIS Casas Num: [id number] Spec Type: Surgical Subm Dr: Joe Cosme MD Tissues: A Colon Biopsy (ASCND COL) Procedures: HE/2, Gross/Micro L4 Patient: Percy Kaplan [id number] (Continued) Signed (signatur e on file) Royer Dominguez MD 10/30/22 1331 Normal [facility] No Panel InformationOrdered By: Joe Cosme on 10-27-2022 Bedside Glucose Comment Glu2: cleaned meter [facility] Office Visiton 10-18-2022 Follow-up visit [id number] Percy Kaplan 1945 F Date Provider Department Center 10/18/2022 3848-DEN BURNETT EDEN [facility] Family History Problem Relation Age of Onset Aortic stenosis Father Other Father Family Status - Relation Status Age at Father Level of Service:83009 [place] OFFICE/OUTPATIENT ESTABLISHED MOD MDM 30-39 MIN Normal [facility] Outside Colonoscopyon 2022 Outside Colonoscopy [id number] B#1.00CD:127 Normal [facility] Lab Reportson 10-16-2022 Lab Reports [id number] 6A#1.00CD:127 Normal [facility] Lab Reports [id number] D5#1.00CD:127 Normal [facility] Lab Reports [id number] 6#1.00CD:127 Normal [facility] Lab Reports [id number] 5#1.00CD:127 Normal [facility] Outside Colonoscopyon 2022 Outside Colonoscopy [id number] 2#1.00CD:127 Normal [facility] Consultation Noteon 10-13-19 Consultation Note [id number] 7F#1.00CD:127 Normal [facility] Consultation Note [id number] 7#1.00CD:127 Normal [facility] Lab Reportson 10-12-2022 Lab Reports [id number] 1#1.00CD:127 Normal [facility] Office Visiton 09-22-2022 Follow-up visit [id number] Percy Kaplan 1945 F Date Provider Department Center 09/22/2022 Mianl-JOLENE CARR Family History Problem Relation Age of Onset Aortic stenosis Father Other Father Family Status - Relation Status Age at Father Level of Service:75308 [place] OFFICE/OUTPATIENT ESTABLISHED MOD MDM 30-39 MIN Reason for Visit and Comments: Follow-up [865483] - Patient is here today per Dr burnett request Valve Disorder [3372] Normal [facility] 36on 08-14-2022 36 Pt called in requesting a refill Normal [facility] Office Visiton 07-17-2022 Follow-up visit [id number] KemalDanica amosisabel Roque 1945 F Date Provider Department Center 07/17/2022 3848-DEN BURNETT CARD [facility] Family History Problem Relation Age of Onset Aortic stenosis Father Other Father Family Status - Relation Status Age at Father Level of Service:16220 [place] OFFICE/OUTPATIENT ESTABLISHED LOW MDM 20-29 MIN Normal [facility] CBC AUTO DIFFon 05-01-2022 BASO # 0.1 103/ul Normal 0.0-0.1 [facility] Comment on above: Performed By: #### C BC ####[facility] [address] [place] [address]Dr. Sugey Dominguez Basophils/100 WBC (Bld) 0.8 % Normal 0.2-2.0 [facility] Comment on above: Performed By: #### C BC ####[facility] [address] [place] [address]Dr. Sugey Dominguez EO # 0.2 103/ul Normal 0.0-0.7 [facility] Comment on above: Performed By: #### C BC ####[facility] [address] [place] [address]Dr. Sugey Dominguez Eosinophils/100 WBC (Bld) 3.5 % Normal 0.9-7.0 [facility] Comment on above: Performed By: #### C BC ####[facility] [address] [place] [address]Dr. Sugey Dominguez Erythrocyte distribution width (RBC) [Ratio] 13.6 % Normal 11.0-15.0 [facility] Comment on above: Performed By: #### C BC ####[facility] [address] [place] [address]Dr. Sugey Dominguez Hematocrit (Bld) [Volume fraction] 40.7 % Normal 36.0-48.0 [facility] Comment on above: Performed By: #### C BC ####[facility] [address] [place] [id number]. Sugey Dominguez Hemoglobin (Bld) [Mass/Vol] 13.5 g/dL Normal 12.0-16.0 [facility] Comment on above: Performed By: #### C BC ####[facility] [address] [place] [address]Dr. Sugey Dominguez IG # 0.03 10e3/ul Normal 0.00-0.03 [facility] Comment on above: Performed By: #### C BC ####[facility] [address] [place] [address]Dr. Sugey Alberto IG % 0.5 % Normal 0.0-0.5 [facility] Comment on above: Performed By: #### C BC ####[facility] [address] [place] [address]Dr. Sugey Alberto LYMPH # 1.5 103/ul Normal 1.2-3.8 [facility] Comment on above: Performed By: #### C BC ####[facility] [address] [place] [id number]. Sugey Alberto Lymphocytes/100 WBC (Bld) 23.1 % Normal 20.5-60.0 [facility] Comment on above: Performed By: #### C BC ####[facility] [address] [place] [id number]. Sugey Alberto MANUAL DIFF REQ NO Normal [facility] Comment on above: Performed By: #### C BC ####[facility] [address] [place] [id number]. Sugey Dominguez MCH (RBC) [Entitic mass] 30.8 pg Normal 26.7-34.0 [facility] Comment on above: Performed By: #### C BC ####[facility] [address] [place] [address]Dr. Sugey Dominguez MCHC (RBC) [Mass/Vol] 33.2 g/dL Normal 29.9-35.2 [facility] Comment on above: Performed By: #### C BC ####[facility] [address] [place] [id number]. Sugey Dominguez MCV (RBC) [Entitic vol] 92.7 fL Normal 81.0-99.0 [facility] Comment on above: Performed By: #### C BC ####[facility] [address] [place] [id number]. Sugey Dominguez MONO # 0.4 103/ul Normal 0.3-0.8 [facility] Comment on above: Performed By: #### C BC ####[facility] [address] [place] [address]Dr. Sugey Dominguez Monocytes/100 WBC (Bld) 6.8 % Normal 1.7-12.0 [facility] Comment on above: Performed By: #### C BC ####[facility] [address] [place], [place] [address]Dr. Sugey Dominguez NEUT # 4.2 103/ul Normal 1.4-6.5 [facility] Comment on above: Performed By: #### C BC ####[facility] [address] [place], [place] [address]Dr. Sugey Dominguez Neutrophils/100 WBC (Bld) 65.3 % Normal 43.0-75.0 [facility] Comment on above: Performed By: #### C BC ####[facility] [address] [place], [place] [address]Dr. Sugey Alberto Platelet mean volume (Bld) [Entitic vol] 10.1 fL Normal 9.5-13.5 [facility] Comment on above: Performed By: #### C BC ####[facility] [address] [place] [id number]. Sugey Alberto PLT 166 103/ul Normal 150-450 [facility] Comment on above: Performed By: #### C BC ####[facility] [address] [place] [id number]. Mainecatherine Alberto RBC 4.39 106/ul Normal 4.20-5.40 [facility] Comment on above: Performed By: #### C BC ####[facility] [address] [place], [place] [address]Dr. Sugey Dominguez WBC 6.4 103/ul Normal 4.0-11.0 [facility] Comment on above: Performed By: #### C BC ####[facility] [address] [place], [place] [address]BdDr. Sugey Dominguez FREE T3on 05-01-2022 FREE T3 1.80 pg/mlL Critically low 2.18-3.98 [facility] Comment on above: Performed By: #### L IPID, FT3, TSH, LIVER, BMP #### [facility] [address] [place] [address] [address] Sugey Dominguez FREE T4on 05-01-2022 Free T4 [Mass/Vol] 1.40 ng/dL Normal 0.76-1.46 [facility] Comment on above: Performed By: #### F T4 #### [facility] [address] [place] [address] [address] Sugey Dominguez GLYCOHEMOGLOBIN A1Con 2022 ADA RECOMMENDATION SEE BELOW Normal [facility] Comment on above: Result Comment: ADA RECOMMENDED LIMIT 4.0 - 6.0 ADA THERAPEUTIC TARGET < 7.0 ACTION SUGGESTED > 7.0 Performed By: #### A 1C #### [facility] [address] [place] [address] [address] Sugey Dominguez Glucose [Mass/Vol] 174 mg/dL Normal [facility] Comment on above: Performed By: #### A 1C #### [facility] [address] [place] [address] [address] Sugey Dominguez HbA1c (Bld) [Mass fraction] 7.7 % Critically high 4.5-6.2 [facility] Comment on above: Performed By: #### A 1C #### [facility] [address] [place] [address] [address] Sugey Dominguez LIPID PROFILEon 05-01-2022 CHOL-HDL RATIO NORM SEE BELOW Normal [facility] Comment on above: Result Comment: 3.3 - 4.4 LOW RISK 4.4 - 7.1 AVERAGE RISK 7.1 - 11.0 MODERATE RISK >11.0 HIGH RISK Performed By: #### L IPID, FT3, TSH, LIVER, BMP #### [facility] [address] [place] [address] Dr. Sugey Dominguez Cholesterol [Mass/Vol] 176 mg/dL Normal <=[address] [facility] Comment on above: Performed By: #### L IPID, FT3, TSH, LIVER, BMP #### [facility] [address] [place] [address] Dr. Sugey Dominguez Cholesterol in HDL [Mass/Vol] 48 mg/dL Normal 40-60 [facility] Comment on above: Performed By: #### L IPID, FT3, TSH, LIVER, BMP #### [facility] [address] [place] [address] Dr. Sugey Dominguez Cholesterol in LDL [Mass/Vol] 80.4 mg/dL Normal [facility] Comment on above: Performed By: #### L IPID, FT3, TSH, LIVER, BMP #### [facility] [address] [place] [address] Dr. Sugey Dominguez Cholesterol.total/Marina sterol in HDL [Mass ratio] 3.7 {ratio} Normal [facility] Comment on above: Performed By: #### L IPID, FT3, TSH, LIVER, BMP #### [facility] [address] [place] [address] Dr. Sugey Dominguez HDL NORMAL > or = 60 mg/dl - LOW CARDIOVASCULAR RISK <40 mg/dl - HIGH CARDIOVASCULAR RISK Normal [facility] Comment on above: Performed By: #### L IPID, FT3, TSH, LIVER, BMP #### [facility] [address] [place] [address] Dr. Sugey Dominguez LDL CALC NORMAL SEE BELOW Normal [facility] Comment on above: Result Comment: <100 mg/dl OPTIMAL 100 - 129 mg/dl NEAR OR ABOVE OPTIMAL 130 - 159 mg/dl BORDERLINE HIGH 160 - 189 mg/dl HIGH >190 mg/dl VERY HIGH Performed By: #### L IPID, FT3, TSH, LIVER, BMP #### [facility] [address] [place], [place] [id number] Dr. Sugey Dominguez Triglyceride [Mass/Vol] 238 mg/dL Critically high <=150 [facility] Comment on above: Performed By: #### L IPID, FT3, TSH, LIVER, BMP #### [facility] [address] [place] [address] Dr. Sugey Dominguez VLDL CALC 47.6 mg/dL Normal [facility] Comment on above: Performed By: #### L IPID, FT3, TSH, LIVER, BMP #### [facility] [address] [place] [address] Dr. Sugey Dominguez LIVER PROFILEon 05-01-2022 Albumin [Mass/Vol] 3.8 g/dL Normal 3.4-5.0 [facility] Comment on above: Performed By: #### L IPID, FT3, TSH, LIVER, BMP #### [facility] [address] [place] [address] Dr. Sugey Dominguez Albumin/Globulin [Mass ratio] 0.9 {ratio} Normal [facility] Comment on above: Performed By: #### L IPID, FT3, TSH, LIVER, BMP #### [facility] [address] [place] [address] Dr. Sugey Dominguez ALP [Catalytic activity/Vol] 81 U/L Normal 46-116 [facility] Comment on above: Performed By: #### L IPID, FT3, TSH, LIVER, BMP #### [facility] [address] [place] [address] Dr. Sugey Dominguez ALT [Catalytic activity/Vol] 23 U/L Normal 14-59 [facility] Comment on above: Performed By: #### L IPID, FT3, TSH, LIVER, BMP #### [facility] [address] [place] [address] Dr. Sugey Dominguez AST [Catalytic activity/Vol] 15 U/L Normal 15-37 [facility] Comment on above: Performed By: #### L IPID, FT3, TSH, LIVER, BMP #### [facility] [address] [place] [address] Dr. Sugey Dominguez BILI, CONJUGATED 0.2 mg/dL Normal 0.0-0.2 [facility] Comment on above: Performed By: #### L IPID, FT3, TSH, LIVER, BMP #### [facility] [address] [place] [address] Dr. Sugey Dominguez Bilirubin [Mass/Vol] 0.6 mg/dL Normal 0.2-1.0 [facility] Comment on above: Performed By: #### L IPID, FT3, TSH, LIVER, BMP #### [facility] [address] [place] [address] Dr. Sugey Dominguez Globulin (S) [Mass/Vol] 4.0 g/dL Normal [facility] Comment on above: Performed By: #### L IPID, FT3, TSH, LIVER, BMP #### [facility] [address] [place] [address] Dr. Sugey Dominguez Protein [Mass/Vol] 7.8 g/dL Normal 6.4-8.2 [facility] Comment on above: Performed By: #### L IPID, FT3, TSH, LIVER, BMP #### [facility] [address] [place] [address] Dr. Sugey Dominguez MICROALBUMIN, RAND URon 04-06 mALB <1.3 Normal <=30.0 [facility] Comment on above: Performed By: #### M ALBR #### [facility] [address] [place] [address] Dr. Sugey Dominguez PROF CHEM 8 (BAS METB)on Anion gap [Moles/Vol] 12.9 mmol/L Normal [facility] Comment on above: Performed By: #### L IPID, FT3, TSH, LIVER, BMP #### [facility] [address] [place] [address] Dr. Sugey Dominguez Calcium [Mass/Vol] 9.6 mg/dL Normal 8.5-10.1 [facility] Comment on above: Performed By: #### L IPID, FT3, TSH, LIVER, BMP #### [facility] [address] [place] [address] Dr. Sugey Dominguez Chloride [Moles/Vol] 96 mmol/L Critically low 98-107 [facility] Comment on above: Performed By: #### L IPID, FT3, TSH, LIVER, BMP #### [facility] [address] [address] [address] Sugey Dominguez CO2 [Moles/Vol] 30.8 mmol/L Normal 21.0-32.0 [facility] Comment on above: Performed By: #### L IPID, FT3, TSH, LIVER, BMP #### [facility] [address] [place] [address] [address] Sugey Dominguez Creatinine [Mass/Vol] 1.74 mg/dL Critically high 0.55-1.02 [facility] Comment on above: Performed By: #### L IPID, FT3, TSH, LIVER, BMP #### [facility] [address] [place] [address] [address] Sugey Dominguez EGFR-AF EQUATORIAL GUINEAN 35 mL/min/1.73m2 Critically low >=60 [facility] Comment on above: Performed By: #### L IPID, FT3, TSH, LIVER, BMP #### [facility] [address] [place] [address] [address] Sugey Dominguez EGFR-NON AF EQUATORIAL GUINEAN 29 mL/min/1.73m2 Critically low >=60 [facility] Comment on above: Performed By: #### L IPID, FT3, TSH, LIVER, BMP #### [facility] [address] [place] [address] [address] Sugey Dominguez Glucose [Mass/Vol] 195 mg/dL Critically high 74-[address] [facility] Comment on above: Performed By: #### L IPID, FT3, TSH, LIVER, BMP #### [facility] [address] [place] [address] Dr. Sugey Dominguez Potassium [Moles/Vol] 4.7 mmol/L Normal 3.5-5.1 [facility] Comment on above: Performed By: #### L IPID, FT3, TSH, LIVER, BMP #### [facility] [address] [address] [address] Sugey Dominguez Sodium [Moles/Vol] 135 mmol/L Critically low 136-145 [facility] Comment on above: Performed By: #### L IPID, FT3, TSH, LIVER, BMP #### [facility] [address] [place] [address] [address] Sugey Dominguez Urea nitrogen [Mass/Vol] 47.0 mg/dL Critically high 7.0-18.0 [facility] Comment on above: Performed By: #### L IPID, FT3, TSH, LIVER, BMP #### [facility] [address] [address] [address] Sugey Dominguez Urea nitrogen/Creatinine [Mass ratio] 27.0 mg/mg Normal [facility] Comment on above: Performed By: #### L IPID, FT3, TSH, LIVER, BMP #### [facility] [address] [place] [address] [address] Sugey Dominguez TSHon 05-01-2022 TSH 4.093 uIU/mL Critically high 0.358-3.740 [facility] Comment on above: Performed By: #### L IPID, FT3, TSH, LIVER, BMP #### [facility] [address] [place] [address] [address] Sugey Dominguez GLYCOHEMOGLOBIN A1Con 2021 ADA RECOMMENDATION SEE BELOW Normal [facility] Comment on above: Result Comment: ADA RECOMMENDED LIMIT 4.0 - 6.0 ADA THERAPEUTIC TARGET < 7.0 ACTION SUGGESTED > 7.0 Performed By: #### A 1C ####[facility] [address] [place] [address]Dr. uSgey Dominguez Glucose [Mass/Vol] 183 mg/dL Normal [facility] Comment on above: Performed By: #### A 1C ####[facility] [address] [place] [address]Dr. Sugey Dominguez HbA1c (Bld) [Mass fraction] 8.0 % Critically high 4.5-6.2 [facility] Comment on above: Performed By: #### A 1C ####[facility] [id number] [place], [place] [address]JsDarci Dominguez BASIC METABOLIC PANELon 03-08 Calcium mass conc 9.2 mg/dL Normal 8.6-10.3 The [facility] Comment on above: Order Comment: No: D o not add to previous draw Performed By: #### 3 5200 #### [facility] [address] [place] [address], [place] Chloride molar conc 96 mmol/L Low 98-107 The [facility] Comment on above: Order Comment: No: D o not add to previous draw Performed By: #### 3 5200 #### [facility] [address] [place] [address], [place] CO2 molar conc 27 mmol/L Normal 21-31 The [facility] Comment on above: Order Comment: No: D o not add to previous draw Performed By: #### 3 5200 #### [facility] [address] [place] [address], [place] Creatinine mass conc 0.70 mg/dL Normal 0.60-1.20 The [facility] Comment on above: Order Comment: No: D o not add to previous draw Performed By: #### 3 5200 #### [facility] [address] [place] [address], [place] GFR/1.73 sq M predicted among blacks MDRD vol rate/area (S/P/Bld) mL/min/{1.73_m2} Normal >60 The [facility] Comment on above: Order Comment: No: D o not add to previous draw Result Comment: Calc ulation may not be valid for patients over 70 years Performed By: #### 3 5200 #### [facility] [address] [place] [address], [place] GFR/1.73 sq M predicted among non-blacks MDRD vol rate/area (S/P/Bld) mL/min/{1.73_m2} Normal >60 The [facility] Comment on above: Order Comment: No: D o not add to previous draw Result Comment: Calc ulation may not be valid for patients over 70 years Performed By: #### 3 5200 #### [facility] [address] [place] [address], [facility] Glucose mass conc 210 mg/dL High 70-100 The [facility] Comment on above: Order Comment: No: D o not add to previous draw Performed By: #### 3 5200 #### [facility] [address] [place] [address], [facility] Potassium molar conc 4.0 mmol/L Normal 3.5-5.1 The [facility] Comment on above: Order Comment: No: D o not add to previous draw Performed By: #### 3 5200 #### [facility] [address] [place] [address], [facility] Sodium molar conc 133 mmol/L Low 136-145 The [facility] Comment on above: Order Comment: No: D o not add to previous draw Performed By: #### 3 5200 #### [facility] [address] [facility] [address], [facility] Urea nitrogen mass conc 20 mg/dL Normal 7-25 T he [facility] Comment on above: Order Comment: No: D o not add to previous draw Performed By: #### 3 5200 #### [facility] [address] [facility] [place] [address], [facility] CBC W/DIFFon 03-24-2018 ABS BASOPHILS 0.1 10*3/uL Normal 0.0-0.2 The [facility] Comment on above: Order Comment: No: D o not add to previous draw Performed By: #### 3 5200 #### [facility] [address] [place] [address], [facility] ABS IMM GRANS 0.1 10*3/uL Normal 0.0-0.2 The [facility] Comment on above: Order Comment: No: D o not add to previous draw Performed By: #### 3 5200 #### [facility] [address] [place] [address], [facility] ABS NEUTROPHILS 4.7 10*3/uL Normal 1.6-7.6 The [facility] Comment on above: Order Comment: No: D o not add to previous draw Performed By: #### 3 5200 #### [facility] [address] [place] [id number], [facility] Basophils #/vol (Bld) 1.1 % High 0.0-1.0 The [facility] Comment on above: Order Comment: No: D o not add to previous draw Performed By: #### 3 5200 #### [facility] [address] [place] [address], [facility] Eosinophils #/vol (Bld) 0.3 10*3/uL Normal 0.0-0.5 [facility] Comment on above: Order Comment: No: D o not add to previous draw Performed By: #### 3 5200 #### [facility] [address] [place] [address], [facility] Eosinophils/100 WBC (Bld) 3.3 % Normal 0.0-6.0 The [facility] Comment on above: Order Comment: No: D o not add to previous draw Performed By: #### 3 5200 #### [facility] [address] [place] [address], [facility] Erythrocyte distribution width Ratio (RBC) 16.2 % High 11.5-15.0 The [facility] Comment on above: Order Comment: No: D o not add to previous draw Performed By: #### 3 5200 #### [facility] [address] [place] [address], [facility] Hematocrit Volume Fraction (Bld) 42.5 % Normal 36.0-45.0 The [facility] Comment on above: Order Comment: No: D o not add to previous draw Performed By: #### 3 5200 #### [facility] [address] [facility] [place] [address], [facility] Hemoglobin mass conc (Bld) 13.7 g/dL Normal 12.0-15.0 The [facility] Comment on above: Order Comment: No: D o not add to previous draw Performed By: #### 3 5200 #### [facility] [address] [facility] [place] [id number], [facility] IMMATURE GRANS 0.8 % Normal 0.0-1.0 The [facility] Comment on above: Order Comment: No: D o not add to previous draw Performed By: #### 3 5200 #### [facility] [address] [place] [address], [facility] Lymphocytes #/vol (Bld) 1.7 10*3/uL Normal 1.2-4.0 The [facility] Comment on above: Order Comment: No: D o not add to previous draw Performed By: #### 3 5200 #### [facility] [address] [place] [address], [facility] Lymphocytes/100 WBC (Bld) 22.1 % Normal 20.0-45.0 The [facility] Comment on above: Order Comment: No: D o not add to previous draw Performed By: #### 3 5200 #### [facility] [address] [place] [address], [facility] MCH Entitic mass (RBC) 30.0 pg Normal 27.0-33.0 Th e [facility] Comment on above: Order Comment: No: D o not add to previous draw Performed By: #### 3 5200 #### [facility] [address] [place] [id number], [facility] MCHC mass conc (RBC) 32.2 g/dL Normal 32.0-35.0 The [facility] Comment on above: Order Comment: No: D o not add to previous draw Performed By: #### 3 5200 #### [facility] [address] [place] [address], [facility] MCV Entitic volume (RBC) 93.2 fL Normal 82.0-98.0 The [facility] Comment on above: Order Comment: No: D o not add to previous draw Performed By: #### 3 5200 #### [facility] [address] [place] [address], [facility] Monocytes #/vol (Bld) 0.7 10*3/uL Normal 0.1-1.0 Th e [facility] Comment on above: Order Comment: No: D o not add to previous draw Performed By: #### 3 5200 #### [facility] [address] [place] [id number], [facility] MONOS 9.8 % Normal 5.0-12.0 The [facility] Comment on above: Order Comment: No: D o not add to previous draw Performed By: #### 3 5200 #### [facility] [address] [place] [id number], [facility] Neutrophils/100 WBC (Bld) 62.9 % Normal 40.0-72.0 [facility] Comment on above: Order Comment: No: D o not add to previous draw Performed By: #### 3 5200 #### [facility] [address] [place] [address], [facility] Nucleated RBC/100 WBC Ratio (Bld) 0 % Normal 0-0 The [facility] Comment on above: Order Comment: No: D o not add to previous draw Performed By: #### 3 5200 #### [facility] [address] [place] [address], [facility] PLAT CNT 188 10*3/uL Normal 150-400 The [facility] Comment on above: Order Comment: No: D o not add to previous draw Performed By: #### 3 5200 #### [facility] [address] [place] [address], [place] RBC #/vol (Bld) 4.56 10*6/uL Normal 3.80-5.00 The [facility] Comment on above: Order Comment: No: D o not add to previous draw Performed By: #### 3 5200 #### [facility] [address] [place] [address], [facility] WBC #/vol (Bld) 7.48 10*3/uL Normal 4.00-10.60 The [facility] Comment on above: Order Comment: No: D o not add to previous draw Performed By: #### 3 5200 #### [facility] [address] [place] [address], [facility] POC GLUCOSE LABon 03-24-2018 Glucose mass conc 241 mg/dL High 70-100 The [facility] Comment on above: Performed By: #### 3 5200 #### [facility] [address] [place] [address], [facility] Glucose mass conc 189 mg/dL High 70-100 The [facility] Comment on above: Performed By: #### 3 5200 #### [facility] [address] [place] [address], [facility] BASIC METABOLIC PANELon 03-08 Calcium mass conc 9.1 mg/dL Normal 8.6-10.3 The [facility] Comment on above: Order Comment: No: D o not add to previous draw Performed By: #### 3 5200 #### [facility] [address] [place] [address], [place] Chloride molar conc 95 mmol/L Low 98-107 The [facility] Comment on above: Order Comment: No: D o not add to previous draw Performed By: #### 3 5200 #### [facility] [address] [place] [address], [place] CO2 molar conc 32 mmol/L High 21-31 The [facility] Comment on above: Order Comment: No: D o not add to previous draw Performed By: #### 3 5200 #### [facility] [address] [place] [address], [facility] Creatinine mass conc 0.71 mg/dL Normal 0.60-1.20 The [facility] Comment on above: Order Comment: No: D o not add to previous draw Performed By: #### 3 5200 #### [facility] [address] [place] [address], [facility] GFR/1.73 sq M predicted among blacks MDRD vol rate/area (S/P/Bld) mL/min/{1.73_m2} Normal >60 The [facility] Comment on above: Order Comment: No: D o not add to previous draw Result Comment: Calc ulation may not be valid for patients over 70 years Performed By: #### 3 5200 #### [facility] [address] [place] [address], [facility] GFR/1.73 sq M predicted among non-blacks MDRD vol rate/area (S/P/Bld) mL/min/{1.73_m2} Normal >60 The [facility] Comment on above: Order Comment: No: D o not add to previous draw Result Comment: Calc ulation may not be valid for patients over 70 years Performed By: #### 3 5200 #### [facility] [address] [place] [address], [facility] Glucose mass conc 189 mg/dL High 70-100 The [facility] Comment on above: Order Comment: No: D o not add to previous draw Performed By: #### 3 5200 #### [facility] [address] [place] [address], [facility] Potassium molar conc 3.7 mmol/L Normal 3.5-5.1 The [facility] Comment on above: Order Comment: No: D o not add to previous draw Performed By: #### 3 5200 #### [facility] [address] [place] [address], [facility] Sodium molar conc 134 mmol/L Low 136-145 The [facility] Comment on above: Order Comment: No: D o not add to previous draw Performed By: #### 3 5200 #### [facility] [address] [place] [address], [facility] Urea nitrogen mass conc 19 mg/dL Normal 7-25 T he [facility] Comment on above: Order Comment: No: D o not add to previous draw Performed By: #### 3 5200 #### [facility] [address] [place] [address], [facility] CBC COMPLETE BLOOD COUNTon 0 - Erythrocyte distribution width Ratio (RBC) 16.2 % High 11.5-15.0 [facility] Comment on above: Order Comment: No: D o not add to previous draw Performed By: #### 3 5200 #### [facility] [address] [place] [address], [facility] Hematocrit Volume Fraction (Bld) 42.5 % Normal 36.0-45.0 [facility] Comment on above: Order Comment: No: D o not add to previous draw Performed By: #### 3 5200 #### [facility] [address] [place] [address], [facility] Hemoglobin mass conc (Bld) 13.6 g/dL Normal 12.0-15.0 [facility] Comment on above: Order Comment: No: D o not add to previous draw Performed By: #### 3 5200 #### [facility] [address] [place] [address], [place] MCH Entitic mass (RBC) 29.9 pg Normal 27.0-33.0 Th e [facility] Comment on above: Order Comment: No: D o not add to previous draw Performed By: #### 3 5200 #### [facility] [address] [place] [address], [facility] MCHC mass conc (RBC) 32.0 g/dL Normal 32.0-35.0 The [facility] Comment on above: Order Comment: No: D o not add to previous draw Performed By: #### 3 5200 #### [facility] [address] MCV Entitic volume (RBC) 93.4 fL Normal 82.0-98.0 The [facility] Comment on above: Order Comment: No: D o not add to previous draw Performed By: #### 3 5200 #### [facility] [address] [facility]. [address] Nucleated RBC/100 WBC Ratio (Bld) 0 % Normal 0-0 The [facility] Comment on above: Order Comment: No: D o not add to previous draw Performed By: #### 3 5200 #### [facility] [address] [facility] [place] [address], [facility] PLAT CNT 198 10*3/uL Normal 150-400 The [facility] Comment on above: Order Comment: No: D o not add to previous draw Performed By: #### 3 5200 #### [facility] [address] [facility]. [address] RBC #/vol (Bld) 4.55 10*6/uL Normal 3.80-5.00 The [facility] Comment on above: Order Comment: No: D o not add to previous draw Performed By: #### 3 5200 #### [facility] [address] [facility] [place] [address], [facility] WBC #/vol (Bld) 7.49 10*3/uL Normal 4.00-10.60 The [facility] Comment on above: Order Comment: No: D o not add to previous draw Performed By: #### 3 5200 #### [facility] [address] POC GLUCOSE LABon 03-23-2018 Glucose mass conc 178 mg/dL High 70-100 The [facility] Comment on above: Performed By: #### 3 5200 #### [facility] [address] [place] [address], [place] Glucose mass conc 163 mg/dL High 70-100 The [facility] Comment on above: Performed By: #### 3 5200 #### [facility] [address] [place] [address], [place] Glucose mass conc 194 mg/dL High 70-100 The [facility] Comment on above: Performed By: #### 3 5200 #### [facility] [address] [place] [address], [place] Glucose mass conc 164 mg/dL High 70-100 The [facility] Comment on above: Performed By: #### 3 5200 #### [facility] [address] [place] [address], [place] BASIC METABOLIC PANELon - Calcium mass conc 9.0 mg/dL Normal 8.6-10.3 The [facility] Comment on above: Order Comment: No: D o not add to previous draw Performed By: #### 3 5200 #### [facility] [address] [place] [address], [place] Chloride molar conc 95 mmol/L Low 98-107 The [facility] Comment on above: Order Comment: No: D o not add to previous draw Performed By: #### 3 5200 #### [facility] [address] [place] [address], [place] CO2 molar conc 36 mmol/L High 21-31 The [facility] Comment on above: Order Comment: No: D o not add to previous draw Performed By: #### 3 5200 #### [facility] [address] [place] [address], [place] Creatinine mass conc 0.61 mg/dL Normal 0.60-1.20 The [facility] Comment on above: Order Comment: No: D o not add to previous draw Performed By: #### 3 5200 #### [facility] [address] [place] [address], [facility] GFR/1.73 sq M predicted among blacks MDRD vol rate/area (S/P/Bld) mL/min/{1.73_m2} Normal >60 The [facility] Comment on above: Order Comment: No: D o not add to previous draw Result Comment: Calc ulation may not be valid for patients over 70 years Performed By: #### 3 5200 #### [facility] [address] [place] [address], [facility] GFR/1.73 sq M predicted among non-blacks MDRD vol rate/area (S/P/Bld) mL/min/{1.73_m2} Normal >60 The [facility] Comment on above: Order Comment: No: D o not add to previous draw Result Comment: Calc ulation may not be valid for patients over 70 years Performed By: #### 3 5200 #### [facility] [address] [place] [address], [facility] Glucose mass conc 152 mg/dL High 70-100 The [facility] Comment on above: Order Comment: No: D o not add to previous draw Performed By: #### 3 5200 #### [facility] [address] [place] [address], [facility] Potassium molar conc 3.5 mmol/L Normal 3.5-5.1 The [facility] Comment on above: Order Comment: No: D o not add to previous draw Performed By: #### 3 5200 #### [facility] [address] [place] [address], [facility] Sodium molar conc 137 mmol/L Normal 136-145 The [facility] Comment on above: Order Comment: No: D o not add to previous draw Performed By: #### 3 5200 #### [facility] [address] [place] [address], [facility] Urea nitrogen mass conc 17 mg/dL Normal 7-25 T he [facility] Comment on above: Order Comment: No: D o not add to previous draw Performed By: #### 3 5200 #### [facility] [address] [place] [address], [facility] CBC COMPLETE BLOOD COUNTon 0 - Erythrocyte distribution width Ratio (RBC) 16.2 % High 11.5-15.0 The [facility] Comment on above: Order Comment: No: D o not add to previous draw Performed By: #### 3 5200 #### [facility] [address] [place] [address], [facility] Hematocrit Volume Fraction (Bld) 42.6 % Normal 36.0-45.0 The [facility] Comment on above: Order Comment: No: D o not add to previous draw Performed By: #### 3 5200 #### [facility] [address] [place] [address], [facility] Hemoglobin mass conc (Bld) 13.4 g/dL Normal 12.0-15.0 The [facility] Comment on above: Order Comment: No: D o not add to previous draw Performed By: #### 3 5200 #### [facility] [address] [place] [address], [facility] MCH Entitic mass (RBC) 29.4 pg Normal 27.0-33.0 Th e [facility] Comment on above: Order Comment: No: D o not add to previous draw Performed By: #### 3 5200 #### [facility] [address] [place] [address], [facility] MCHC mass conc (RBC) 31.5 g/dL Low 32.0-35.0 The [facility] Comment on above: Order Comment: No: D o not add to previous draw Performed By: #### 3 5200 #### [facility] [address] [place] [address], [facility] MCV Entitic volume (RBC) 93.4 fL Normal 82.0-98.0 The [facility] Comment on above: Order Comment: No: D o not add to previous draw Performed By: #### 3 5200 #### [facility] [address] [place] [address], [facility] Nucleated RBC/100 WBC Ratio (Bld) 0 % Normal 0-0 The [facility] Comment on above: Order Comment: No: D o not add to previous draw Performed By: #### 3 5200 #### [facility] [address] [place] [address], [facility] PLAT CNT 197 10*3/uL Normal 150-400 The [facility] Comment on above: Order Comment: No: D o not add to previous draw Performed By: #### 3 5200 #### [facility] [address] [place] [id number], [facility] RBC #/vol (Bld) 4.56 10*6/uL Normal 3.80-5.00 The [facility] Comment on above: Order Comment: No: D o not add to previous draw Performed By: #### 3 5200 #### [facility] [address] [place] [address], [facility] WBC #/vol (Bld) 7.53 10*3/uL Normal 4.00-10.60 The [facility] Comment on above: Order Comment: No: D o not add to previous draw Performed By: #### 3 5200 #### [facility] [address] [place] [address], [facility] POC GLUCOSE LABon 03-22-2018 Glucose mass conc 187 mg/dL High 70-100 The [facility] Comment on above: Performed By: #### 3 5200 #### [facility] [address] [place] [address], [facility] Glucose mass conc 161 mg/dL High 70-100 The [facility] Comment on above: Performed By: #### 3 5200 #### [facility] [address] [place] [address], [place] Glucose mass conc 226 mg/dL High 70-100 The [facility] Comment on above: Performed By: #### 3 5200 #### [facility] [address] [place] [address], [place] Glucose mass conc 175 mg/dL High 70-100 The [facility] Comment on above: Performed By: #### 3 5200 #### [facility] [address] [place] [address], [place] Glucose mass conc 148 mg/dL High 70-100 The [facility] Comment on above: Performed By: #### 3 5200 #### [facility] [address] [place] [address], [place] Glucose mass conc 191 mg/dL High 70-100 The [facility] Comment on above: Performed By: #### 5 6101, [address] #### [facility] [address] [place] [address], [place] BASIC METABOLIC PANELon 03-08 Calcium mass conc 9.1 mg/dL Normal 8.6-10.3 The The [facility] [facility] Comment on above: Order Comment: No: D o not add to previous draw Performed By: #### 5 6101, 51724 #### [facility] [address] [place] [address], [place] Chloride molar conc 95 mmol/L Low 98-107 [facility] Comment on above: Order Comment: No: D o not add to previous draw Performed By: #### 5 6101, 63395 #### [facility] [address] [place] [address], [place] CO2 molar conc 36 mmol/L High 21-31 The [facility] Comment on above: Order Comment: No: D o not add to previous draw Performed By: #### 5 610, 11302 #### [facility] [address] [place] [address], [facility] Creatinine mass conc 0.68 mg/dL Normal 0.60-1.20 The [facility] Comment on above: Order Comment: No: D o not add to previous draw Performed By: #### 5 610, 81893 #### [facility] [address] [place] [address], [facility] GFR/1.73 sq M predicted among blacks MDRD vol rate/area (S/P/Bld) mL/min/{1.73_m2} Normal >60 The [facility] Comment on above: Order Comment: No: D o not add to previous draw Result Comment: Calc ulation may not be valid for patients over 70 years Performed By: #### 5 610, 28760 #### [facility] [address] [place] [address], [facility] GFR/1.73 sq M predicted among non-blacks MDRD vol rate/area (S/P/Bld) mL/min/{1.73_m2} Normal >60 The [facility] Comment on above: Order Comment: No: D o not add to previous draw Result Comment: Calc ulation may not be valid for patients over 70 years Performed By: #### 5 610, 61320 #### [facility] [address] [place] [address], [facility] Glucose mass conc 147 mg/dL High 70-100 The [facility] Comment on above: Order Comment: No: D o not add to previous draw Performed By: #### 5 610, 63231 #### [facility] [address] [place] [address], [facility] Potassium molar conc 3.6 mmol/L Normal 3.5-5.1 The [facility] Comment on above: Order Comment: No: D o not add to previous draw Performed By: #### 5 610, 01320 #### [facility] [address] [place] [address], [facility] Sodium molar conc 139 mmol/L Normal 136-145 The [facility] Comment on above: Order Comment: No: D o not add to previous draw Performed By: #### 5 610, 29150 #### [facility] [address] [place] [address], [facility] Urea nitrogen mass conc 14 mg/dL Normal 7-25 T he [facility] Comment on above: Order Comment: No: D o not add to previous draw Performed By: #### 5 6100, 29155 #### [facility] [address] [place] [address], [facility] CBC COMPLETE BLOOD COUNTon 0 - Erythrocyte distribution width Ratio (RBC) 16.2 % High 11.5-15.0 [facility] Comment on above: Order Comment: No: D o not add to previous draw Performed By: #### 5 6100, 12318 #### [facility] [address] [place] [address], [facility] Hematocrit Volume Fraction (Bld) 42.0 % Normal 36.0-45.0 [facility] Comment on above: Order Comment: No: D o not add to previous draw Performed By: #### 5 6100, 74171 #### [facility] [address] [place] [address], [facility] Hemoglobin mass conc (Bld) 13.5 g/dL Normal 12.0-15.0 [facility] Comment on above: Order Comment: No: D o not add to previous draw Performed By: #### 5 610, 40567 #### [facility] [address] [place] [address], [facility] MCH Entitic mass (RBC) 30.0 pg Normal 27.0-33.0 Th e [facility] Comment on above: Order Comment: No: D o not add to previous draw Performed By: #### 5 610, 31756 #### [facility] [address] MCHC mass conc (RBC) 32.1 g/dL Normal 32.0-35.0 The [facility] Comment on above: Order Comment: No: D o not add to previous draw Performed By: #### 5 610, 27095 #### [facility] [address] [place] [address], [facility] MCV Entitic volume (RBC) 93.3 fL Normal 82.0-98.0 The [facility] Comment on above: Order Comment: No: D o not add to previous draw Performed By: #### 5 6100, 66896 #### [facility] [address] [place] [address], [facility] Nucleated RBC/100 WBC Ratio (Bld) 0 % Normal 0-0 [facility] Comment on above: Order Comment: No: D o not add to previous draw Performed By: #### 5 6100, 86263 #### [facility] [address] [place] [address], [facility] PLAT CNT 196 10*3/uL Normal 150-400 The [facility] Comment on above: Order Comment: No: D o not add to previous draw Performed By: #### 5 610, 28353 #### [facility] [address] [place] [address], [facility] RBC #/vol (Bld) 4.50 10*6/uL Normal 3.80-5.00 The [facility] Comment on above: Order Comment: No: D o not add to previous draw Performed By: #### 5 610, 51891 #### [facility] [address] [place] [id number], [facility] WBC #/vol (Bld) 7.89 10*3/uL Normal 4.00-10.60 The [facility] Comment on above: Order Comment: No: D o not add to previous draw Performed By: #### 5 6101, 98088 #### [facility] [address] [place] [address], [place] POC GLUCOSE LABon 03-21-2018 Glucose mass conc 174 mg/dL High 70-100 The [facility] Comment on above: Performed By: #### 5 610, 32019 #### [facility] [address] [place] [address], [place] Glucose mass conc 129 mg/dL High 70-100 The [facility] Comment on above: Performed By: #### 5 6100, 02019 #### [facility] [address] [place] [address], [place] Glucose mass conc 280 mg/dL High 70-100 The [facility] Comment on above: Performed By: #### 5 6100, 61427 #### [facility] [address] [place] [address], [place] BASIC METABOLIC PANELon 03-08 Calcium mass conc 9.2 mg/dL Normal 8.6-10.3 The [facility] Comment on above: Order Comment: No: D o not add to previous draw Performed By: #### 5 610, 47918 #### [facility] [address] [place] [address], [place] Chloride molar conc 96 mmol/L Low 98-107 The [facility] Comment on above: Order Comment: No: D o not add to previous draw Performed By: #### 5 610, 63201 #### [facility] [address] [place] [address], [place] CO2 molar conc 33 mmol/L High 21-31 [facility] Comment on above: Order Comment: No: D o not add to previous draw Performed By: #### 5 610, 61041 #### [facility] [address] [place] [address], [place] Creatinine mass conc 0.69 mg/dL Normal 0.60-1.20 The [facility] Comment on above: Order Comment: No: D o not add to previous draw Performed By: #### 5 6101, 54749 #### [facility] [address] [place] [address], [facility] GFR/1.73 sq M predicted among blacks MDRD vol rate/area (S/P/Bld) mL/min/{1.73_m2} Normal >60 The [facility] Comment on above: Order Comment: No: D o not add to previous draw Result Comment: Calc ulation may not be valid for patients over 70 years Performed By: #### 5 6101, 70949 #### [facility] [address] [place] [address], [facility] GFR/1.73 sq M predicted among non-blacks MDRD vol rate/area (S/P/Bld) mL/min/{1.73_m2} Normal >60 The [facility] Comment on above: Order Comment: No: D o not add to previous draw Result Comment: Calc ulation may not be valid for patients over 70 years Performed By: #### 5 6101, 26603 #### [facility] [address] [place] [address], [facility] Glucose mass conc 134 mg/dL High 70-100 The [facility] Comment on above: Order Comment: No: D o not add to previous draw Performed By: #### 5 6101, 02508 #### [facility] [address] [place] [address], [facility] Potassium molar conc 4.1 mmol/L Normal 3.5-5.1 The [facility] Comment on above: Order Comment: No: D o not add to previous draw Performed By: #### 5 6101, 86048 #### [facility] [address] [place] [address], [place] Sodium molar conc 137 mmol/L Normal 136-145 The [facility] Comment on above: Order Comment: No: D o not add to previous draw Performed By: #### 5 610, 24253 #### [facility] [address] [place] [address], [place] Urea nitrogen mass conc 13 mg/dL Normal 7-25 T he [facility] Comment on above: Order Comment: No: D o not add to previous draw Performed By: #### 5 610, 16911 #### [facility] [address] [place] [address], [place] MAGNESIUM BLOODon 03-20-2018 Magnesium mass conc 1.9 mg/dL Normal 1.9-2.7 The [facility] Comment on above: Order Comment: No: D o not add to previous draw Performed By: #### 5 610, 30322 #### [facility] [address] [place] [address], [place] POC GLUCOSE LABon 03-20-2018 Glucose mass conc 109 mg/dL High 70-100 The [facility] Comment on above: Performed By: #### 5 610, 19501 #### [facility] [address] [place] [address], [place] Glucose mass conc 194 mg/dL High 70-100 The [facility] Comment on above: Performed By: #### 5 610, 42619 #### [facility] [address] [place] [address], [place] Glucose mass conc 119 mg/dL High 70-100 The [facility] Comment on above: Performed By: #### 5 610, 25435 #### [facility] [address] [place] [address], [place] Glucose mass conc 203 mg/dL High 70-100 The [facility] Comment on above: Performed By: #### 5 6101, 35861 #### [facility] [address] [place] [address], [place] APTTon 03-19-2018 aPTT Coag time (Bld) 32.1 s Normal 25.0-35.0 The [facility] Comment on above: Order Comment: No: [...] THIS PURPOSE. Performed By: #### 5 6101, 67787 #### [facility] [address] [place] [address], [facility] BASIC METABOLIC PANELon 03-08 Calcium mass conc 9.2 mg/dL Normal 8.6-10.3 [facility] Comment on above: Order Comment: No: D o not add to previous draw Performed By: #### 5 610, 95519 #### [facility] [address] [place] [address], [facility] Chloride molar conc 95 mmol/L Low 98-107 [facility] Comment on above: Order Comment: No: D o not add to previous draw Performed By: #### 5 610, 19371 #### [facility] [address] [place] [address], [place] CO2 molar conc 34 mmol/L High 21-31 [facility] Comment on above: Order Comment: No: D o not add to previous draw Performed By: #### 5 6101, 73297 #### [facility] [address] [place] [address], [facility] Creatinine mass conc 0.55 mg/dL Low 0.60-1.20 The [facility] Comment on above: Order Comment: No: D o not add to previous draw Performed By: #### 5 6101, 18193 #### [facility] [address] [place] [address], [place] GFR/1.73 sq M predicted among blacks MDRD vol rate/area (S/P/Bld) mL/min/{1.73_m2} Normal >60 The [facility] Comment on above: Order Comment: No: D o not add to previous draw Result Comment: Calc ulation may not be valid for patients over 70 years Performed By: #### 5 6101, 26420 #### [facility] [address] [place] [address], [place] GFR/1.73 sq M predicted among non-blacks MDRD vol rate/area (S/P/Bld) mL/min/{1.73_m2} Normal >60 The [facility] Comment on above: Order Comment: No: D o not add to previous draw Result Comment: Calc ulation may not be valid for patients over 70 years Performed By: #### 5 610, 81371 #### [facility] [address] [place] [address], [place] Glucose mass conc 136 mg/dL High 70-100 The [facility] Comment on above: Order Comment: No: D o not add to previous draw Performed By: #### 5 610, 08092 #### [facility] [address] [place] [address], [place] Potassium molar conc 3.4 mmol/L Low 3.5-5.1 The [facility] Comment on above: Order Comment: No: D o not add to previous draw Performed By: #### 5 610, 58568 #### [facility] [address] [place] [address], [place] Sodium molar conc 137 mmol/L Normal 136-145 The [facility] Comment on above: Order Comment: No: D o not add to previous draw Performed By: #### 5 610, 54877 #### [facility] [address] [place] [address], [place] Urea nitrogen mass conc 11 mg/dL Normal 7-25 T he [facility] Comment on above: Order Comment: No: D o not add to previous draw Performed By: #### 5 610, 62880 #### [facility] [address] [facility] [address], [facility] CBC W/DIFFon 03-19-2018 ABS BASOPHILS 0.1 10*3/uL Normal 0.0-0.2 [facility] Comment on above: Order Comment: No: D o not add to previous draw Performed By: #### 5 610, 84998 #### [facility] [address] [facility] [place] [address], [facility] ABS IMM GRANS 0.1 10*3/uL Normal 0.0-0.2 [facility] Comment on above: Order Comment: No: D o not add to previous draw Performed By: #### 5 610, 34307 #### [facility] [address] [facility]. [address] ABS NEUTROPHILS 6.1 10*3/uL Normal 1.6-7.6 The [facility] Comment on above: Order Comment: No: D o not add to previous draw Performed By: #### 5 610, 90169 #### [facility] [address] [facility]. [address] Basophils #/vol (Bld) 0.8 % Normal 0.0-1.0 The [facility] Comment on above: Order Comment: No: D o not add to previous draw Performed By: #### 5 610, 84234 #### [facility] [address] [facility] [place] [address], [facility] Eosinophils #/vol (Bld) 0.2 10*3/uL Normal 0.0-0.5 The [facility] Comment on above: Order Comment: No: D o not add to previous draw Performed By: #### 5 610, 58696 #### [facility] [address] [facility] [place] [place] [address], [facility] Eosinophils/100 WBC (Bld) 1.9 % Normal 0.0-6.0 The [facility] Comment on above: Order Comment: No: D o not add to previous draw Performed By: #### 5 6100, 62132 #### [facility] [address] Erythrocyte distribution width Ratio (RBC) 16.4 % High 11.5-15.0 The [facility] Comment on above: Order Comment: No: D o not add to previous draw Performed By: #### 5 6100, 40743 #### [facility] [address] Hematocrit Volume Fraction (Bld) 43.7 % Normal 36.0-45.0 The [facility] Comment on above: Order Comment: No: D o not add to previous draw Performed By: #### 5 6100, 39145 #### [facility] [address] Hemoglobin mass conc (Bld) 14.0 g/dL Normal 12.0-15.0 The [facility] Comment on above: Order Comment: No: D o not add to previous draw Performed By: #### 5 6100, 49182 #### [facility] [address] [facility] [address] IMMATURE GRANS 0.7 % Normal 0.0-1.0 [facility] Comment on above: Order Comment: No: D o not add to previous draw Performed By: #### 5 6100, 54821 #### [facility] [address] [facility] [address] Lymphocytes #/vol (Bld) 1.7 10*3/uL Normal 1.2-4.0 The [facility] Comment on above: Order Comment: No: D o not add to previous draw Performed By: #### 5 610, 82441 #### [facility] [address] [place] [address], [facility] Lymphocytes/100 WBC (Bld) 19.1 % Low 20.0-45.0 The [facility] Comment on above: Order Comment: No: D o not add to previous draw Performed By: #### 5 6100, 12275 #### [facility] [address] [place] [address], [facility] MCH Entitic mass (RBC) 29.5 pg Normal 27.0-33.0 Th e [facility] Comment on above: Order Comment: No: D o not add to previous draw Performed By: #### 5 6100, 40992 #### [facility] [address] [place] [address], [facility] MCHC mass conc (RBC) 32.0 g/dL Normal 32.0-35.0 The [facility] Comment on above: Order Comment: No: D o not add to previous draw Performed By: #### 5 6100, 97416 #### [facility] [address] [place] [address], [facility] MCV Entitic volume (RBC) 92.0 fL Normal 82.0-98.0 The [facility] Comment on above: Order Comment: No: D o not add to previous draw Performed By: #### 5 6100, 94306 #### [facility] [address] [place] [address], [facility] Monocytes #/vol (Bld) 0.6 10*3/uL Normal 0.1-1.0 e [facility] Comment on above: Order Comment: No: D o not add to previous draw Performed By: #### 5 6100, 48890 #### [facility] [address] [place] [address], [facility] MONOS 7.0 % Normal 5.0-12.0 The [facility] Comment on above: Order Comment: No: D o not add to previous draw Performed By: #### 5 610, 20336 #### [facility] [address] [place] [address], [facility] Neutrophils/100 WBC (Bld) 70.5 % Normal 40.0-72.0 The [facility] Comment on above: Order Comment: No: D o not add to previous draw Performed By: #### 5 6101, 58986 #### [facility] [address] [facility]. [address] Nucleated RBC/100 WBC Ratio (Bld) 0 % Normal 0-0 The [facility] Comment on above: Order Comment: No: D o not add to previous draw Performed By: #### 5 6101, 59821 #### [facility] [address] [facility]. [address] PLAT CNT 200 10*3/uL Normal 150-400 The [facility] Comment on above: Order Comment: No: D o not add to previous draw Performed By: #### 5 6101, 40392 #### [facility] [address] RBC #/vol (Bld) 4.75 10*6/uL Normal 3.80-5.00 The [facility] Comment on above: Order Comment: No: D o not add to previous draw Performed By: #### 5 6101, 37119 #### [facility] [address] [facility] [place] [address], [facility] WBC #/vol (Bld) 8.62 10*3/uL Normal 4.00-10.60 The [facility] Comment on above: Order Comment: No: D o not add to previous draw Performed By: #### 5 6101, 79266 #### [address] CHEST AND LATERALon 03-19-19 19 CHEST AND LATERAL [facility] Department of Radiology [address] [place] [id number] Patient Name: PERCY KAPLAN : 1945 Sex: F Age: Race: White Pt. Location: [address] [place] [address] Patient Status: I Ordered Date: 03/19/2018 12:15:00 AM Completed Date: 03/19/2018 05:56 AM Requesting Provider: JAGUAR JOHN Attending Provider: DAVID GABRIEL Report Copy To: Signs & Symptoms: [...] IMPRESSION: Improving CHF. Chronic cardiomegaly. Electronically signed by:Franklyn Nicolas. Transcribed by: [email or web address], User Resident: Electronically Signed by: FRANKLYN NICOLAS @ 03/19/2018 08:20 AM Normal The [facility] Comment on above: Order Comment: No: D o not add to previous draw COMP METABOLIC PANELon 03-19 Albumin mass conc 3.3 g/dL Low 3.5-5.7 The [facility] Comment on above: Order Comment: No: D o not add to previous draw Performed By: #### 5 6101, 97383 #### [facility] [address] [facility] [address], [facility] ALKALINE PHOSPH 58 IU/L Normal 34-104 The [facility] Comment on above: Order Comment: No: D o not add to previous draw Performed By: #### 5 610, 93392 #### [facility] [address] [place] [address], [place] ALT enzyme act/vol 28 U/L Normal 7-52 The [facility] Comment on above: Order Comment: No: D o not add to previous draw Performed By: #### 5 610, 48381 #### [facility] [address] [place] [address], [place] AST enzyme act/vol 22 U/L Normal 13-39 The [facility] Comment on above: Order Comment: No: D o not add to previous draw Performed By: #### 5 610, 01156 #### [facility] [address] [place] [address], [place] Bilirubin mass conc 1.9 mg/dL High 0.3-1.0 The [facility] Comment on above: Order Comment: No: D o not add to previous draw Performed By: #### 5 610, 13848 #### [facility] [address] [place] [address], [place] Calcium mass conc 9.0 mg/dL Normal 8.6-10.3 The [facility] Comment on above: Order Comment: No: D o not add to previous draw Performed By: #### 5 610, 72408 #### [facility] [address] [place] [address], [place] Chloride molar conc 94 mmol/L Low 98-107 The [facility] Comment on above: Order Comment: No: D o not add to previous draw Performed By: #### 5 610, 34712 #### [facility] [address] [place] [address], [place] CO2 molar conc 36 mmol/L High 21-31 The [facility] Comment on above: Order Comment: No: D o not add to previous draw Performed By: #### 5 610, 74885 #### [facility] [address] [place] [address], [facility] Creatinine mass conc 0.61 mg/dL Normal 0.60-1.20 The [facility] Comment on above: Order Comment: No: D o not add to previous draw Performed By: #### 5 610, 48520 #### [facility] [address] [place] [address], [facility] GFR/1.73 sq M predicted among blacks MDRD vol rate/area (S/P/Bld) mL/min/{1.73_m2} Normal >60 The [facility] Comment on above: Order Comment: No: D o not add to previous draw Result Comment: Calc ulation may not be valid for patients over 70 years Performed By: #### 5 610, 13005 #### [facility] [address] [place] [address], [facility] GFR/1.73 sq M predicted among non-blacks MDRD vol rate/area (S/P/Bld) mL/min/{1.73_m2} Normal >60 The [facility] Comment on above: Order Comment: No: D o not add to previous draw Result Comment: Calc ulation may not be valid for patients over 70 years Performed By: #### 5 610, 87275 #### [facility] [address] [place] [address], [facility] Glucose mass conc 210 mg/dL High 70-100 The [facility] Comment on above: Order Comment: No: D o not add to previous draw Performed By: #### 5 610, 69572 #### [facility] [address] [place] [address], [facility] Potassium molar conc 3.3 mmol/L Low 3.5-5.1 The [facility] Comment on above: Order Comment: No: D o not add to previous draw Performed By: #### 5 610, 71436 #### [facility] [address] [place] [id number], [facility] Protein mass conc 6.3 g/dL Normal 6.0-8.3 The [facility] Comment on above: Order Comment: No: D o not add to previous draw Performed By: #### 5 6101, 74708 #### [facility] [address] [place] [address], [facility] Sodium molar conc 137 mmol/L Normal 136-145 The [facility] Comment on above: Order Comment: No: D o not add to previous draw Performed By: #### 5 6101, 73950 #### [facility] [address] [place] [address], [facility] Urea nitrogen mass conc 11 mg/dL Normal 7-25 T he [facility] Comment on above: Order Comment: No: D o not add to previous draw Performed By: #### 5 6101, 73694 #### [facility] [address] [place] [address], [facility] History and Physicalon 03-19 History and Physical MR#: [id number] [facility] Pt. Name: Percy Kaplan Admitted: 03/18/2018 Date of : 1945 Attending Physician: Jaguar John MD Room #: [id number] Discharge Date: HISTORY AND PHYSICAL The patient [...] a nurse and her son-in-law is a trap setter and they took her to the ED. She was admitted to [facility] where she was found to be [...] stenosis during her last hospitalization here at [facility] earlier this month. There was a discussion with Cardiology service about aortic valve replacement, whether to have TAVR versus open heart surgery and that decision has not been made yet. She was supposed to follow up with our Cardiology service next week. Transfer was initiated from [place] for further evaluation from our Cardiology service and also due to concern at [place] whether she needed urgent valve replacement done [...] heart rate 73, respiratory rate 23, blood [id number], pulse ox 99% 2L NC. EYES: Pupils [...] alert and oriented x3. LAB STUDIES: From [facility], March 18, 2018. CBC; WBC 7.4, hemoglobin 12.7, hematocrit 39.2, platelet count 174. BMP: Sodium 142, potassium 3.3, chloride 101, bicarb 34.7, BUN 12, creatinine 0.71, calcium 8.5, glucose 93. The patient had BNP of 16,271 on March 16, 2018, when she initially presented. It appears that cardiac enzymes are negative. Chest x-ray is reported to be showing pulmonary edema from [place], but no images were sent over with [...] John MD Date Trans: 03/19/2018 01:05 A/jerri [id number] Normal The [facility] MAGNESIUM BLOODon 03-19-2018 Magnesium mass conc 1.8 mg/dL Low 1.9-2.7 The [facility] Comment on above: Order Comment: Yes: Add to Previous draw if able Performed By: #### 3 4350, 52871, 68261, 42644 #### [facility] [address] [place] [address], [facility] POC GLUCOSE LABon 03-19-2018 Glucose mass conc 260 mg/dL High 70-100 The [facility] Comment on above: Performed By: #### 5 6101, 31032 #### [facility] [address] [place] [address], [facility] Glucose mass conc 200 mg/dL High 70-100 The [facility] Comment on above: Performed By: #### 5 6101, 24162 #### [facility] [address] [place] [address], [facility] Glucose mass conc 130 mg/dL High 70-100 The [facility] Comment on above: Performed By: #### 3 5200, 00685, 83412, 26958 #### [facility] [address] [facility] [place] [address], [facility] Glucose mass conc 112 mg/dL High 70-100 The [facility] Comment on above: Performed By: #### 3 5200, 88686, 58026, 57801 #### [facility] [address] [facility] [place], [place] [id number] [place] [address] PROTHROMBIN TIMEon 9 INR Coag RelTime (PPP) 1.19 {INR} High 0.91-1.16 Th e [facility] Comment on above: Order Comment: No: [...] CHEST 1995;[id number]. Performed By: #### 5 6101, 81924 #### [facility] [address] [employer] Prothrombin time (PT) Coag time (PPP) 15.1 s High 12.3-14.8 [facility] Comment on above: Order Comment: No: D o not add to previous draw Result Comment: ALL RESULTS MUST BE INTERPRETED WITH RESPECT TO BLOOD DRAWING ARTIFACT OR DILUTION ERROR OF ANTICOAGULANT AT THE TIME OF SAMPLING. Performed By: #### 5 6101, 79642 #### [facility] [address] [facility]. [address] APTTon 03-13-2018 aPTT Coag time (Bld) 52.4 s High 25.0-35.0 [facility] Comment on above: Order Comment: [...] OF HEPARIN. Performed By: #### 3 5200, 86921, 86548, 16649 #### [facility] [address] [place] [address], [facility] aPTT Coag time (Bld) 56.9 s High 25.0-35.0 [facility] Comment on above: Order Comment: [...] OF HEPARIN. Performed By: #### 3 5200, 31528, 05158, 52231 #### [facility] [address] [facility] [place] [address], [facility] aPTT Coag time (Bld) 53.6 s High 25.0-35.0 The [facility] Comment on above: Order Comment: Yes: [...] OF HEPARIN. Performed By: #### 3 5200, 82910, 26216, 71176 #### [facility] [address] [place] [address], [facility] POC GLUCOSE LABon 03-13-2018 Glucose mass conc 140 mg/dL High 70-100 The [facility] Comment on above: Performed By: #### 3 5200, 92565, 58933, 91692 #### [facility] [address] [facility] [place] [address], [facility] Glucose mass conc 189 mg/dL High 70-100 The [facility] Comment on above: Performed By: #### 3 5200, 41542, 30452, 99671 #### [facility] [address] [facility] [place] [address], [facility] Glucose mass conc 156 mg/dL High 70-100 The [facility] Comment on above: Performed By: #### 3 5200, 37581, 43912, 35686 #### [facility] [address] [place] [address], [facility] UFH HEPARIN ASSAYon 03-13-19 19 UNFRACTIONATED HEPARIN 0.14 IU/mL Critically low 0.30-0.70 The [facility] Comment on above: Order Comment: Yes: Add to Previous draw if able Result Comment: Kathy roxaban and Apixaban will interfere with the anti Xa assay used to monitor UFH and LMWH. Results called. Accurately read back by PEGGY ISAACS 1508 Performed By: #### 3 5200, 49822, 44611, 47954 #### [facility] [address] UNFRACTIONATED HEPARIN 0.18 IU/mL Low 0.30-0.70 Th e [facility] Comment on above: Order Comment: Yes: Add to Previous draw if able Result Comment: Swink roxaban and Apixaban will interfere with the anti Xa assay used to monitor UFH and LMWH. Performed By: #### 3 5200, 66783, 00156, 92468 #### [facility] [address] UNFRACTIONATED HEPARIN 0.18 IU/mL Low 0.30-0.70 Th e [facility] Comment on above: Result Comment: Kathy roxaban and Apixaban will interfere with the anti Xa assay used to monitor UFH and LMWH. ADDED PER PROTOCOL. Performed By: #### 3 5200, 25569, 50031, 89544 #### [facility] [address] [place] [address], [facility] APTTon 03-12-2018 aPTT Coag time (Bld) 49.2 s High 25.0-35.0 The [facility] Comment on above: Order Comment: Yes: [...] THIS PURPOSE. Performed By: #### 3 5200, 56685, 13670, 89434 #### [facility] [address] [place] [address], [facility] aPTT Coag time (Bld) 59.2 s High 25.0-35.0 [facility] Comment on above: Order Comment: [...] OF HEPARIN. Performed By: #### 3 5200, 74292, 00868, 36722 #### [facility] [address] [facility] [address] aPTT Coag time (Bld) 43.7 s High 25.0-35.0 [facility] Comment on above: Order Comment: [...] THIS PURPOSE. Performed By: #### 3 5200, 40573, 28697, 39962 #### [facility] [address] BASIC METABOLIC PANELon 02-0 -2018 Calcium mass conc 8.9 mg/dL Normal 8.6-10.3 [facility] Comment on above: Order Comment: Yes: Add to Previous draw if able Performed By: #### 3 5200, 91473, 44244, 24524 #### [facility] [address] [place] [address], [place] Chloride molar conc 100 mmol/L Normal 98-107 The [facility] Comment on above: Order Comment: Yes: Add to Previous draw if able Performed By: #### 3 5200, 43073, 22248, 48500 #### [facility] [address] [place] [address], [place] CO2 molar conc 28 mmol/L Normal 21-31 The [facility] Comment on above: Order Comment: Yes: Add to Previous draw if able Performed By: #### 3 5200, 64954, 85983, 07971 #### [facility] [address] [place] [address], [facility] Creatinine mass conc 0.50 mg/dL Low 0.60-1.20 [facility] Comment on above: Order Comment: Yes: Add to Previous draw if able Performed By: #### 3 5200, 44808, 95446, 70477 #### [facility] [address] [place] [address], [place] GFR/1.73 sq M predicted among blacks MDRD vol rate/area (S/P/Bld) mL/min/{1.73_m2} Normal >60 The [facility] Comment on above: Order Comment: Yes: Add to Previous draw if able Result Comment: Calc ulation may not be valid for patients over 70 years Performed By: #### 3 5200, 63589, 59945, 33760 #### [facility] [address] [place] [address], [place] GFR/1.73 sq M predicted among non-blacks MDRD vol rate/area (S/P/Bld) mL/min/{1.73_m2} Normal >60 The [facility] Comment on above: Order Comment: Yes: Add to Previous draw if able Result Comment: Calc ulation may not be valid for patients over 70 years Performed By: #### 3 5200, 65573, 08087, 09878 #### [facility] [address] [place] [address], [facility] Glucose mass conc 132 mg/dL High 70-100 The [facility] Comment on above: Order Comment: Yes: Add to Previous draw if able Performed By: #### 3 5200, 98322, 64742, 13534 #### [facility] [address] [place] [address], [facility] Potassium molar conc 3.6 mmol/L Normal 3.5-5.1 The [facility] Comment on above: Order Comment: Yes: Add to Previous draw if able Performed By: #### 3 5200, 46828, 66357, 58406 #### [facility] [address] [place] [address], [facility] Sodium molar conc 137 mmol/L Normal 136-145 The [facility] Comment on above: Order Comment: Yes: Add to Previous draw if able Performed By: #### 3 5200, 25309, 68910, 26310 #### [facility] [address] [place] [address], [facility] Urea nitrogen mass conc 10 mg/dL Normal 7-25 T he [facility] Comment on above: Order Comment: Yes: Add to Previous draw if able Performed By: #### 3 5200, 03887, 39927, 55367 #### [facility] [address] [place] [address], [facility] CBC COMPLETE BLOOD COUNTon 0 - Erythrocyte distribution width Ratio (RBC) 16.1 % High 11.5-15.0 [facility] Comment on above: Order Comment: Yes: Add to Previous draw if able Performed By: #### 3 5200, 14492, 17240, 27742 #### [facility] [address] [place] [address], [facility] Hematocrit Volume Fraction (Bld) 39.3 % Normal 36.0-45.0 The [facility] Comment on above: Order Comment: Yes: Add to Previous draw if able Performed By: #### 3 5200, 74015, 75610, 57518 #### [facility] [address] [place] [address], [facility] Hemoglobin mass conc (Bld) 12.4 g/dL Normal 12.0-15.0 The [facility] Comment on above: Order Comment: Yes: Add to Previous draw if able Performed By: #### 3 5200, 14854, 48839, 76490 #### [facility] [address] [place] [address], [facility] MCH Entitic mass (RBC) 29.7 pg Normal 27.0-33.0 Th e [facility] Comment on above: Order Comment: Yes: Add to Previous draw if able Performed By: #### 3 5200, 06403, 46923, 60403 #### [facility] [address] MCHC mass conc (RBC) 31.6 g/dL Low 32.0-35.0 The [facility] Comment on above: Order Comment: Yes: Add to Previous draw if able Performed By: #### 3 5200, 78675, 65664, 24348 #### [facility] [address] MCV Entitic volume (RBC) 94.0 fL Normal 82.0-98.0 [facility] Comment on above: Order Comment: Yes: Add to Previous draw if able Performed By: #### 3 5200, 80418, 48056, 65726 #### [facility] [address] [place] [address], [facility] Nucleated RBC/100 WBC Ratio (Bld) 0 % Normal 0-0 The [facility] Comment on above: Order Comment: Yes: Add to Previous draw if able Performed By: #### 3 5200, 28026, 28924, 65995 #### [facility] [address] [place] [id number], [facility] PLAT CNT 185 10*3/uL Normal 150-400 The [facility] Comment on above: Order Comment: Yes: Add to Previous draw if able Performed By: #### 3 5200, 98183, 81428, 31382 #### [facility] [address] [place] [address], [place] RBC #/vol (Bld) 4.18 10*6/uL Normal 3.80-5.00 The [facility] Comment on above: Order Comment: Yes: Add to Previous draw if able Performed By: #### 3 5200, 46575, 44663, 75697 #### [facility] [address] [place] [address], [place] WBC #/vol (Bld) 6.85 10*3/uL Normal 4.00-10.60 The [facility] Comment on above: Order Comment: Yes: Add to Previous draw if able Performed By: #### 3 5200, 42857, 91846, 77435 #### [facility] [address] [place] [address], [place] POC GLUCOSE LABon 03-12-2018 Glucose mass conc 135 mg/dL High 70-100 The [facility] Comment on above: Performed By: #### 3 5200, 04077, 80166, 44062 #### [facility] [address] [place] [address], [place] Glucose mass conc 188 mg/dL High 70-100 The [facility] Comment on above: Performed By: #### 3 5200, 26837, 62592, 08230 #### [facility] [address] [place] [address], [place] Glucose mass conc 130 mg/dL High 70-100 The [facility] Comment on above: Performed By: #### 3 5200, 21634, 95348, 26900 #### [facility] [address] [place] [address], [place] Glucose mass conc 139 mg/dL High 70-100 The [facility] Comment on above: Performed By: #### 3 5200, 04908, 35361, 25603 #### [facility] [address] [place] [address], [facility] UFH HEPARIN ASSAYon 03-12-19 19 UNFRACTIONATED HEPARIN 0.30 IU/mL Normal 0.30-0.70 Th e [facility] Comment on above: Order Comment: Yes: Add to Previous draw if able Result Comment: Swink roxaban and Apixaban will interfere with the anti Xa assay used to monitor UFH and LMWH. Performed By: #### 3 5200, 81947, 52299, 32869 #### [facility] [address] [place] [address], [facility] APTTon 03-11-2018 aPTT Coag time (Bld) 88.3 s Critically high 25.0-35.0 The [facility] Comment on above: Order Comment: Yes: [...] OF HEPARIN. Performed By: #### 3 5200, 94001, 65872, 29166 #### [facility] [address] [place] [address], [facility] aPTT Coag time (Bld) 50.4 s High 25.0-35.0 The [facility] Comment on above: Order Comment: No: [...] THIS PURPOSE. Performed By: #### 3 5200, 53382, 85313, 40618 #### [facility] [address] [place] [address], [facility] BASIC METABOLIC PANELon 02-0 Calcium mass conc 8.9 mg/dL Normal 8.6-10.3 [facility] Comment on above: Order Comment: No: D o not add to previous draw Performed By: #### 3 5200, 58016, 98414, 65443 #### [facility] [address] [place] [address], [facility] Chloride molar conc 101 mmol/L Normal 98-107 The [facility] Comment on above: Order Comment: No: D o not add to previous draw Performed By: #### 3 5200, 77246, 71236, 72432 #### [facility] [address] [place] [address], [facility] CO2 molar conc 29 mmol/L Normal 21-31 The [facility] Comment on above: Order Comment: No: D o not add to previous draw Performed By: #### 3 5200, 83409, 34742, 30494 #### [facility] [address] [place] [address], [facility] Creatinine mass conc 0.55 mg/dL Low 0.60-1.20 [facility] Comment on above: Order Comment: No: D o not add to previous draw Performed By: #### 3 5200, 27878, 48965, 20932 #### [facility] [address] [place] [address], [place] GFR/1.73 sq M predicted among blacks MDRD vol rate/area (S/P/Bld) mL/min/{1.73_m2} Normal >60 The [facility] Comment on above: Order Comment: No: D o not add to previous draw Result Comment: Calc ulation may not be valid for patients over 70 years Performed By: #### 3 5200, 28273, 45265, 27150 #### [facility] [address] [place] [address], [facility] GFR/1.73 sq M predicted among non-blacks MDRD vol rate/area (S/P/Bld) mL/min/{1.73_m2} Normal >60 The [facility] Comment on above: Order Comment: No: D o not add to previous draw Result Comment: Calc ulation may not be valid for patients over 70 years Performed By: #### 3 5200, 83525, 09384, 27327 #### [facility] [address] [place] [address], [facility] Glucose mass conc 152 mg/dL High 70-100 The [facility] Comment on above: Order Comment: No: D o not add to previous draw Performed By: #### 3 5200, 49607, 81371, 47398 #### [facility] [address] [place] [address], [facility] Potassium molar conc 3.7 mmol/L Normal 3.5-5.1 The [facility] Comment on above: Order Comment: No: D o not add to previous draw Performed By: #### 3 5200, 63635, 58789, 36114 #### [facility] [address] [place] [address], [facility] Sodium molar conc 138 mmol/L Normal 136-145 The [facility] Comment on above: Order Comment: No: D o not add to previous draw Performed By: #### 3 5200, 34222, 23893, 27276 #### [facility] [address] [place] [address], [facility] Urea nitrogen mass conc 12 mg/dL Normal 7-25 T he [facility] Comment on above: Order Comment: No: D o not add to previous draw Performed By: #### 3 5200, 68761, 48517, 20792 #### [facility] [address] [place] [address], [place] CBC W/DIFFon 03-11-2018 ABS BASOPHILS 0.1 10*3/uL Normal 0.0-0.2 The [facility] Comment on above: Order Comment: No: D o not add to previous draw Performed By: #### 3 5200, 86341, 30419, 51495 #### [facility] [address] [place] [address], [facility] ABS IMM GRANS 0.0 10*3/uL Normal 0.0-0.2 The [facility] Comment on above: Order Comment: No: D o not add to previous draw Performed By: #### 3 5200, 92969, 85899, 64611 #### [facility] [address] [facility] [place] [address], [facility] ABS NEUTROPHILS 4.7 10*3/uL Normal 1.6-7.6 The [facility] Comment on above: Order Comment: No: D o not add to previous draw Performed By: #### 3 5200, 22294, 55984, 47474 #### [facility] [address] [facility] [place] [address], [facility] Basophils #/vol (Bld) 0.9 % Normal 0.0-1.0 The [facility] Comment on above: Order Comment: No: D o not add to previous draw Performed By: #### 3 5200, 40928, 98267, 00687 #### [facility] [address] [facility] [place] [address], [facility] Eosinophils #/vol (Bld) 0.2 10*3/uL Normal 0.0-0.5 The [facility] Comment on above: Order Comment: No: D o not add to previous draw Performed By: #### 3 5200, 24649, 87766, 18256 #### [facility] [address] [facility] [place] [address], [facility] Eosinophils/100 WBC (Bld) 2.4 % Normal 0.0-6.0 The [facility] Comment on above: Order Comment: No: D o not add to previous draw Performed By: #### 3 5200, 04837, 34208, 71825 #### [facility] [address] Erythrocyte distribution width Ratio (RBC) 16.1 % High 11.5-15.0 The [facility] Comment on above: Order Comment: No: D o not add to previous draw Performed By: #### 3 5200, 10890, 46854, 84984 #### [facility] [address] [place] [id number], [facility] Hematocrit Volume Fraction (Bld) 38.7 % Normal 36.0-45.0 The [facility] Comment on above: Order Comment: No: D o not add to previous draw Performed By: #### 3 5200, 07627, 30278, 12624 #### [facility] [address] [place] [address], [facility] Hemoglobin mass conc (Bld) 12.5 g/dL Normal 12.0-15.0 [facility] Comment on above: Order Comment: No: D o not add to previous draw Performed By: #### 3 5200, 97868, 38635, 27225 #### [facility] [facility] [address] [place] [address], [facility] IMMATURE GRANS 0.6 % Normal 0.0-1.0 The [facility] Comment on above: Order Comment: No: D o not add to previous draw Performed By: #### 3 5200, 66927, 25322, 23885 #### [facility] [address] [place] [id number], [facility] Lymphocytes #/vol (Bld) 1.3 10*3/uL Normal 1.2-4.0 The [facility] Comment on above: Order Comment: No: D o not add to previous draw Performed By: #### 3 5200, 69607, 30576, 12773 #### [facility] [address] [place] [id number], [facility] Lymphocytes/100 WBC (Bld) 18.6 % Low 20.0-45.0 The [facility] Comment on above: Order Comment: No: D o not add to previous draw Performed By: #### 3 5200, 91904, 07008, 51509 #### [facility] [address] MCH Entitic mass (RBC) 29.9 pg Normal 27.0-33.0 e [facility] Comment on above: Order Comment: No: D o not add to previous draw Performed By: #### 3 5200, 67705, 82110, 35747 #### [facility] [address] MCHC mass conc (RBC) 32.3 g/dL Normal 32.0-35.0 The [facility] Comment on above: Order Comment: No: D o not add to previous draw Performed By: #### 3 5200, 67087, 24489, 05775 #### [facility] [address] MCV Entitic volume (RBC) 92.6 fL Normal 82.0-98.0 The [facility] Comment on above: Order Comment: No: D o not add to previous draw Performed By: #### 3 5200, 02572, 35810, 60576 #### [facility] [address] [facility] [address] Monocytes #/vol (Bld) 0.5 10*3/uL Normal 0.1-1.0 e [facility] Comment on above: Order Comment: No: D o not add to previous draw Performed By: #### 3 5200, 38597, 11767, 28425 #### [facility] [address] MONOS 7.0 % Normal 5.0-12.0 The [facility] Comment on above: Order Comment: No: D o not add to previous draw Performed By: #### 3 5200, 09071, 62231, 64784 #### [facility] [address] [place] [address], [facility] Neutrophils/100 WBC (Bld) 70.5 % Normal 40.0-72.0 The [facility] Comment on above: Order Comment: No: D o not add to previous draw Performed By: #### 3 5200, 88564, 24667, 36175 #### [facility] [address] [place] [address], [facility] Nucleated RBC/100 WBC Ratio (Bld) 0 % Normal 0-0 The [facility] Comment on above: Order Comment: No: D o not add to previous draw Performed By: #### 3 5200, 62889, 72732, 31891 #### [facility] [address] [place] [address], [facility] PLAT CNT 189 10*3/uL Normal 150-400 The [facility] Comment on above: Order Comment: No: D o not add to previous draw Performed By: #### 3 5200, 19388, 44354, 26239 #### [facility] [address] [facility] [place] [address], [facility] RBC #/vol (Bld) 4.18 10*6/uL Normal 3.80-5.00 The [facility] Comment on above: Order Comment: No: D o not add to previous draw Performed By: #### 3 5200, 12188, 64972, 38063 #### [facility] [address] [place] [address], [place] WBC #/vol (Bld) 6.71 10*3/uL Normal 4.00-10.60 The [facility] Comment on above: Order Comment: No: D o not add to previous draw Performed By: #### 3 5200, 49058, 95922, 42171 #### [facility] [address] [place] [address], [facility] POC GLUCOSE LABon 03-11-2018 Glucose mass conc 128 mg/dL High 70-100 The [facility] Comment on above: Performed By: #### 3 5200, 81582, 68379, 78884 #### [facility] [address] [facility] [place] [address], [facility] Glucose mass conc 100 mg/dL Normal 70-100 The [facility] Comment on above: Performed By: #### 3 5200, 12940, 25332, 40523 #### [facility] [address] [facility] [address], [facility] Glucose mass conc 158 mg/dL High 70-100 The [facility] Comment on above: Performed By: #### 3 5200, 61802, 29821, 52561 #### [facility] [address] [facility]. [address] UFH HEPARIN ASSAYon 03-11-19 19 UNFRACTIONATED HEPARIN 0.35 IU/mL Normal 0.30-0.70 Th e [facility] Comment on above: Order Comment: Yes: Add to Previous draw if able Result Comment: Kathy roxaban and Apixaban will interfere with the anti Xa assay used to monitor UFH and LMWH. RESULTS CHECKED AND CALLED. ACCURATELY READ BACK BY ANANYA GUERRA RN AT 15:51 CLINICAL SIGNIFICANCE OF THE PTT RESULT IS QUESTIONABLE IN THE PRESENCE OF HEPARIN. Performed By: #### 3 5200, 18004, 54970, 94229 #### [facility] [address] [facility]. [address] UNFRACTIONATED HEPARIN 0.28 IU/mL Low 0.30-0.70 Th e [facility] Comment on above: Result Comment: Kathy roxaban and Apixaban will interfere with the anti Xa assay used to monitor UFH and LMWH. Performed By: #### 3 5200, 96742, 82425, 04752 #### [facility] [address] APTTon 03-10-2018 aPTT Coag time (Bld) 53.0 s High 25.0-35.0 The [facility] Comment on above: Order Comment: No: [...] OF HEPARIN. Performed By: #### 3 5200, 25127, 55212, 36814 #### [facility] [address] aPTT Coag time (Bld) 47.7 s High 25.0-35.0 The [facility] Comment on above: Order Comment: No: [...] THIS PURPOSE. Performed By: #### 3 5200, 65201, 43422, 27839 #### [facility] [address] [place] [address], [facility] aPTT Coag time (Bld) 68.2 s High 25.0-35.0 The [facility] Comment on above: Order Comment: No: [...] THIS PURPOSE. Performed By: #### 3 5200, 73320, 10708, 49621 #### [facility] [address] [place] [place], [place] [address] BASIC METABOLIC PANELon 02-0 3-2019 Calcium mass conc 8.7 mg/dL Normal 8.6-10.3 [facility] Comment on above: Order Comment: No: D o not add to previous draw Performed By: #### 3 5200, 03606, 11461, 64118 #### [facility] [address] [place] [address], [place] Chloride molar conc 100 mmol/L Normal 98-107 The [facility] Comment on above: Order Comment: No: D o not add to previous draw Performed By: #### 3 5200, 05719, 18009, 23648 #### [facility] [address] [place] [address], [place] CO2 molar conc 28 mmol/L Normal 21-31 The [facility] Comment on above: Order Comment: No: D o not add to previous draw Performed By: #### 3 5200, 24927, 60099, 27354 #### [facility] [address] [place] [address], [place] Creatinine mass conc 0.57 mg/dL Low 0.60-1.20 [facility] Comment on above: Order Comment: No: D o not add to previous draw Performed By: #### 3 5200, 88976, 14163, 08476 #### [facility] [address] [place] [address], [place] GFR/1.73 sq M predicted among blacks MDRD vol rate/area (S/P/Bld) mL/min/{1.73_m2} Normal >60 The [facility] Comment on above: Order Comment: No: D o not add to previous draw Result Comment: Calc ulation may not be valid for patients over 70 years Performed By: #### 3 5200, 54181, 90265, 15520 #### [facility] [address] [place] [address], [place] GFR/1.73 sq M predicted among non-blacks MDRD vol rate/area (S/P/Bld) mL/min/{1.73_m2} Normal >60 The [facility] Comment on above: Order Comment: No: D o not add to previous draw Result Comment: Calc ulation may not be valid for patients over 70 years Performed By: #### 3 5200, 89054, 00583, 91678 #### [facility] [address] [place] [address], [place] Glucose mass conc 141 mg/dL High 70-100 The [facility] Comment on above: Order Comment: No: D o not add to previous draw Performed By: #### 3 5200, 31168, 87145, 66707 #### [facility] [address] [place] [address], [place] Potassium molar conc 4.0 mmol/L Normal 3.5-5.1 The [facility] Comment on above: Order Comment: No: D o not add to previous draw Performed By: #### 3 5200, 23676, 57370, 06742 #### [facility] [address] [place] [address], [place] Sodium molar conc 136 mmol/L Normal 136-145 The [facility] Comment on above: Order Comment: No: D o not add to previous draw Performed By: #### 3 5200, 12390, 84471, 29238 #### [facility] [address] [place] [address], [facility] Urea nitrogen mass conc 12 mg/dL Normal 7-25 T he [facility] Comment on above: Order Comment: No: D o not add to previous draw Performed By: #### 3 5200, 54046, 07334, 82858 #### [facility] [address] [place] [address], [place] CBC COMPLETE BLOOD COUNTon 0 - Erythrocyte distribution width Ratio (RBC) 16.1 % High 11.5-15.0 The [facility] Comment on above: Order Comment: No: D o not add to previous draw Performed By: #### 3 5200, 87025, 65145, 88316 #### [facility] [address] [place] [address], [facility] Hematocrit Volume Fraction (Bld) 39.4 % Normal 36.0-45.0 The [facility] Comment on above: Order Comment: No: D o not add to previous draw Performed By: #### 3 5200, 74829, 57459, 53738 #### [facility] [address] [place] [address], [facility] Hemoglobin mass conc (Bld) 12.9 g/dL Normal 12.0-15.0 The [facility] Comment on above: Order Comment: No: D o not add to previous draw Performed By: #### 3 5200, 81244, 17886, 00324 #### [facility] [address] [place] [address], [facility] MCH Entitic mass (RBC) 30.0 pg Normal 27.0-33.0 Th e [facility] Comment on above: Order Comment: No: D o not add to previous draw Performed By: #### 3 5200, 21356, 33191, 03997 #### [facility] [address] [place] [id number], [facility] MCHC mass conc (RBC) 32.7 g/dL Normal 32.0-35.0 The [facility] Comment on above: Order Comment: No: D o not add to previous draw Performed By: #### 3 5200, 05167, 28922, 34956 #### [facility] [address] [place] [address], [place] MCV Entitic volume (RBC) 91.6 fL Normal 82.0-98.0 The [facility] Comment on above: Order Comment: No: D o not add to previous draw Performed By: #### 3 5200, 67578, 21482, 58850 #### [facility] [address] [place] [address], [place] Nucleated RBC/100 WBC Ratio (Bld) 0 % Normal 0-0 The [facility] Comment on above: Order Comment: No: D o not add to previous draw Performed By: #### 3 5200, 19034, 89163, 20670 #### [facility] [address] [place] [address], [facility] PLAT CNT 200 10*3/uL Normal 150-400 The [facility] Comment on above: Order Comment: No: D o not add to previous draw Performed By: #### 3 5200, 12769, 22091, 41184 #### [facility] [address] [place] [address], [facility] RBC #/vol (Bld) 4.30 10*6/uL Normal 3.80-5.00 The [facility] Comment on above: Order Comment: No: D o not add to previous draw Performed By: #### 3 5200, 42920, 69741, 42437 #### [facility] [address] [place] [address], [facility] WBC #/vol (Bld) 7.21 10*3/uL Normal 4.00-10.60 The [facility] Comment on above: Order Comment: No: D o not add to previous draw Performed By: #### 3 5200, 08388, 55142, 66070 #### [facility] [address] UFH HEPARIN ASSAYon 03-10-19 19 UNFRACTIONATED HEPARIN 0.33 IU/mL Normal 0.30-0.70 Th e [facility] Comment on above: Result Comment: Swink roxaban and Apixaban will interfere with the anti Xa assay used to monitor UFH and LMWH. UFH ADDED PER PROTOCOL Performed By: #### 3 5200, 35771, 77996, 53403 #### [facility] [address] [place] [address], [facility] UNFRACTIONATED HEPARIN 0.89 IU/mL High 0.30-0.70 Th e [facility] Comment on above: Order Comment: No: D o not add to previous draw Result Comment: Swink roxaban and Apixaban will interfere with the anti Xa assay used to monitor UFH and LMWH. Performed By: #### 3 5200, 33189, 21927, 18886 #### [facility] [address] [place] [address], [facility] APTTon 03-09-2018 aPTT Coag time (Bld) 67.5 s High 25.0-35.0 The [facility] Comment on above: Order Comment: Yes: [...] HEPARIN. Performed By: #### 8 5123 #### [facility] [address] [place] [address], [facility] aPTT Coag time (Bld) 58.4 s High 25.0-35.0 The [facility] Comment on above: Order Comment: Yes: [...] PURPOSE. Performed By: #### 8 5123 #### [facility] [address] [place] [address], [facility] aPTT Coag time (Bld) 89.8 s Critically high 25.0-35.0 The [facility] Comment on above: Order Comment: Yes: [...] 14:02 Performed By: #### 8 5123 #### [facility] [address] [facility] [place] [address], [facility] aPTT Coag time (Bld) 80.2 s Critically high 25.0-35.0 The [facility] Comment on above: Order Comment: Yes: [...] PURPOSE. Performed By: #### 8 5123 #### [facility] [address] [facility] [address], [facility] aPTT Coag time (Bld) 47.3 s High 25.0-35.0 The [facility] Comment on above: Order Comment: No: [...] THIS PURPOSE. Performed By: #### 5 6101, 33115 #### [facility] [address] [place] [address], [facility] BNP (B-TYPE NATRIURETIC PEPT ISSA)on 03-09-2018 Natriuretic peptide B mass conc (Bld) 596 pg/mL High 0-100 The [facility] Comment on above: Order Comment: Yes: Add to Previous draw if able Result Comment: Give n the appropriate clinical setting a BNP result of >100 pg/mL indicates congestive heart failure. Performed By: #### 8 5123 #### [facility] [address] [facility] [address] CBC COMPLETE BLOOD COUNTon 0 - Erythrocyte distribution width Ratio (RBC) 16.1 % High 11.5-15.0 The [facility] Comment on above: Order Comment: Yes: Add to Previous draw if able Performed By: #### 8 5123 #### [facility] [address] Hematocrit Volume Fraction (Bld) 42.2 % Normal 36.0-45.0 The [facility] Comment on above: Order Comment: Yes: Add to Previous draw if able Performed By: #### 8 5123 #### [facility] [address] Hemoglobin mass conc (Bld) 13.7 g/dL Normal 12.0-15.0 The [facility] Comment on above: Order Comment: Yes: Add to Previous draw if able Performed By: #### 8 5123 #### [facility] [address] [facility]. [address] MCH Entitic mass (RBC) 30.0 pg Normal 27.0-33.0 Th e [facility] Comment on above: Order Comment: Yes: Add to Previous draw if able Performed By: #### 8 5123 #### [facility] [address] [facility] [address] MCHC mass conc (RBC) 32.5 g/dL Normal 32.0-35.0 The [facility] Comment on above: Order Comment: Yes: Add to Previous draw if able Performed By: #### 8 5123 #### [facility] [address] [place] [address], [facility] MCV Entitic volume (RBC) 92.5 fL Normal 82.0-98.0 The [facility] Comment on above: Order Comment: Yes: Add to Previous draw if able Performed By: #### 8 5123 #### [facility] [address] Nucleated RBC/100 WBC Ratio (Bld) 0 % Normal 0-0 The [facility] Comment on above: Order Comment: Yes: Add to Previous draw if able Performed By: #### 8 5123 #### [facility] [address] [place] [address], [facility] PLAT CNT 208 10*3/uL Normal 150-400 The [facility] Comment on above: Order Comment: Yes: Add to Previous draw if able Performed By: #### 8 5123 #### [facility] [address] [place] [address], [facility] RBC #/vol (Bld) 4.56 10*6/uL Normal 3.80-5.00 The [facility] Comment on above: Order Comment: Yes: Add to Previous draw if able Performed By: #### 8 5123 #### [facility] [address] [place] [address], [facility] WBC #/vol (Bld) 9.26 10*3/uL Normal 4.00-10.60 The [facility] Comment on above: Order Comment: Yes: Add to Previous draw if able Performed By: #### 8 5123 #### [facility] [address] Erythrocyte distribution width Ratio (RBC) 15.9 % High 11.5-15.0 The [facility] Comment on above: Order Comment: Yes: Add to Previous draw if able Performed By: #### 5 0608 #### [facility] [address] [place] [address], [facility] Hematocrit Volume Fraction (Bld) 38.2 % Normal 36.0-45.0 The [facility] Comment on above: Order Comment: Yes: Add to Previous draw if able Performed By: #### 5 0608 #### [facility] [address] Hemoglobin mass conc (Bld) 12.4 g/dL Normal 12.0-15.0 The [facility] Comment on above: Order Comment: Yes: Add to Previous draw if able Performed By: #### 5 0608 #### [facility] [address] [place] [id number], [facility] MCH Entitic mass (RBC) 29.5 pg Normal 27.0-33.0 Th e [facility] Comment on above: Order Comment: Yes: Add to Previous draw if able Performed By: #### 5 0608 #### [facility] [address] [facility] [place] [address], [facility] MCHC mass conc (RBC) 32.5 g/dL Normal 32.0-35.0 [facility] Comment on above: Order Comment: Yes: Add to Previous draw if able Performed By: #### 5 0608 #### [facility] [address] [facility] [address] MCV Entitic volume (RBC) 91.0 fL Normal 82.0-98.0 [facility] Comment on above: Order Comment: Yes: Add to Previous draw if able Performed By: #### 5 0608 #### [facility] [address] [facility] [place] [address], [facility] Nucleated RBC/100 WBC Ratio (Bld) 0 % Normal 0-0 The [facility] Comment on above: Order Comment: Yes: Add to Previous draw if able Performed By: #### 5 0608 #### [facility] [address] [place] [address], [facility] PLAT CNT 193 10*3/uL Normal 150-400 The [facility] Comment on above: Order Comment: Yes: Add to Previous draw if able Performed By: #### 5 0608 #### [facility] [address] [place] [address], [facility] RBC #/vol (Bld) 4.20 10*6/uL Normal 3.80-5.00 The [facility] Comment on above: Order Comment: Yes: Add to Previous draw if able Performed By: #### 5 0608 #### [facility] [address] [place] [address], [facility] WBC #/vol (Bld) 8.57 10*3/uL Normal 4.00-10.60 The [facility] Comment on above: Order Comment: Yes: Add to Previous draw if able Performed By: #### 5 0608 #### [facility] [address] [place] [address], [facility] ELECTROLYTE PANELon 03-09-19 19 Chloride molar conc 98 mmol/L Normal 98-107 The [facility] Comment on above: Order Comment: Yes: Add to Previous draw if able Performed By: #### 3 5200, 96515, 55861, 61343 #### [facility] [address] [place] [address], [facility] CO2 molar conc 26 mmol/L Normal 21-31 The [facility] Comment on above: Order Comment: Yes: Add to Previous draw if able Performed By: #### 3 5200, 91562, 13440, 19861 #### [facility] [address] [place] [address], [facility] Potassium molar conc 4.0 mmol/L Normal 3.5-5.1 The [facility] Comment on above: Order Comment: Yes: Add to Previous draw if able Performed By: #### 3 5200, 27355, 52416, 69094 #### [facility] [address] [place] [address], [facility] Sodium molar conc 135 mmol/L Low 136-145 The [facility] Comment on above: Order Comment: Yes: Add to Previous draw if able Performed By: #### 3 5200, 50361, 17792, 81122 #### [facility] [address] [place] [address], [facility] MAGNESIUM BLOODon 03-09-2018 Magnesium mass conc 1.2 mg/dL Low 1.9-2.7 The [facility] Comment on above: Order Comment: Yes: Add to Previous draw if able Performed By: #### 3 5200, 88902, 86214, 74530 #### [address] [address], [facility] PORTABLE CHEST 1 VIEWon PORTABLE CHEST 1 VIEW [facility] Department of Radiology [address] [place] [id number] Patient Name: PERCY KAPLAN : 1945 Sex: F Age: Race: White Pt. Location: [id number] Patient Status: I Ordered Date: 03/09/2018 2:15:00 [...] findings. Electronically signed by:Peña Díaz. Transcribed by: [email or web address], User Resident: BETH MILTON Electronically Signed by: PEÑA DÍAZ @ 03/09/2018 01:31 PM I personally read this/these film(s) with this resident Normal The [facility] Comment on above: Order Comment: Yes: Add to Previous draw if able PROTHROMBIN TIMEon 9 INR Coag RelTime (PPP) 1.78 {INR} High 0.91-1.16 Th e [facility] Comment on above: Result Comment: ACCC [...] 1995;108:[id number]. Performed By: #### 8 5123 #### [address] Prothrombin time (PT) Coag time (PPP) 20.8 s High 12.3-14.8 The [facility] Comment on above: Result Comment: ALL RESULTS MUST BE INTERPRETED WITH RESPECT TO BLOOD DRAWING ARTIFACT OR DILUTION ERROR OF ANTICOAGULANT AT THE TIME OF SAMPLING. Performed By: #### 8 5123 #### [facility] [address] INR Coag RelTime (PPP) 2.82 {INR} High 0.91-1.16 Th e [facility] Comment on above: Order Comment: No: [...] CHEST 1995;108:[id number]. Performed By: #### 5 [id number], [id number] #### [facility] [address] Prothrombin time (PT) Coag time (PPP) 29.9 s High 12.3-14.8 [facility] Comment on above: Order Comment: No: D o not add to previous draw Result Comment: ALL RESULTS MUST BE INTERPRETED WITH RESPECT TO BLOOD DRAWING ARTIFACT OR DILUTION ERROR OF ANTICOAGULANT AT THE TIME OF SAMPLING. Performed By: #### 5 [id number], [id number] #### [facility] [address] [place] [address], [facility] TROPONIN-Ion 03-09-2018 Troponin I.cardiac mass conc 0.01 ng/mL Normal 0.00-0.04 [facility] Comment on above: Order Comment: No: D o not add to previous draw Result Comment: REFE RENCE RANGES: 0.00 - 0.04 ng/ml NORMAL 0.05 - 0.50 ng/ml INDETERMINATE > 0.50 ng/ml CONSISTENT WITH AN M.I. Performed By: #### 3 [id number] #### [facility] [address] [facility] [place] [address], [facility] Troponin I.cardiac mass conc 0.01 ng/mL Normal 0.00-0.04 [facility] Comment on above: Order Comment: No: D o not add to previous draw Result Comment: REFE RENCE RANGES: 0.00 - 0.04 ng/ml NORMAL 0.05 - 0.50 ng/ml INDETERMINATE > 0.50 ng/ml CONSISTENT WITH AN M.I. Performed By: #### 3 [id number] #### [facility] [address] [place] [address], [facility] Troponin I.cardiac mass conc 0.01 ng/mL Normal 0.00-0.04 [facility] Comment on above: Order Comment: No: D o not add to previous draw Result Comment: REFE RENCE RANGES: 0.00 - 0.04 ng/ml NORMAL 0.05 - 0.50 ng/ml INDETERMINATE > 0.50 ng/ml CONSISTENT WITH AN M.I. Performed By: #### 3 [id number], [id number], [id number], [id number] #### [facility] [address] [facility] [place] [address], [place] TSH3on 03-09-2018 TSH 3RD GENERATION 3.21 uIU/mL Normal 0.34-5.60 [facility] Comment on above: Order Comment: Yes: Add to Previous draw if able Performed By: #### 3 5200, [id number], [id number], 75525 #### [facility] [address] [facility] [place] [address], [facility] UFH HEPARIN ASSAYon 03-09-19 19 UNFRACTIONATED HEPARIN >1.00 Critically high 0.30-0.7 0 [facility] Comment on above: Result Comment: Swink roxaban and Apixaban will interfere with the anti Xa assay used to monitor UFH and LMWH. Performed By: #### 8 5123 #### [facility] [address] UNFRACTIONATED HEPARIN >1.00 Critically high 0.30-0.7 0 [facility] Comment on above: Order Comment: Yes: Add to Previous draw if able Result Comment: Swink roxaban and Apixaban will interfere with the anti Xa assay used to monitor UFH and LMWH. UFH = 2.28. UFH MAY BE ELEVATED IN THE PRESENCE OF OTHER ANTI-XA INHIBITORS. Performed By: #### 8 5123 #### [facility] [address] UNFRACTIONATED HEPARIN >1.00 Critically high 0.30-0.7 0 [facility] Comment on above: Result Comment: Kathy [...] 2.62 Performed By: #### 8 5123 #### [facility] [address] Vital Signs Date Time Vital Sign Value Performing Clinician Leigh weiss 10-27-2022 12:14-040 Diastolic blood pressure 53 mm[Hg] MD Gumaro Ordonez Work Phone: [facility] 10-27-2022 12:14-040 Heart rate 73 /min MD Gumaro Ordonez Work Phone: [facility] 10-27-2022 12:14-0400 Respiratory rate 18 /min MD Gumaro Ordonez Work Phone: [facility] 10-27-2022 12:14-0400 SaO2% (BldA) [Mass fraction] 95 % MD Gumaro Ordonez Work Phone: [facility] 10-27-2022 12:14-0400 Systolic blood pressure 128 mm[Hg] MD Gumaro Ordonez Work Phone: [facility] 10-27-2022 10:54-0400 Body height 160.02 cm MD Gumaro Ordonez Work Phone: [facility] 10-27-2022 10:54-0400 Body weight 122.46 kg MD Gumaro Ordonez Work Phone: [facility] Encounters Encounter Date Encounter Type Care Provider Facility Start: 03-19-2023 End: 03-19-2023 ambulatory [facility] Start: 02-27-2023 ambulatory [facility] Start: 02-27-2023 ambulatory [facility] Start: 01-12-2023 End: 01-12-2023 ambulatory [facility] Start: 12-04-2022 End: 12-04-2022 ambulatory Joe Cosme Facility:[facility] Start: 12-04-2022 End: 12-04-2022 ambulatory MD Gumaro Ordonez Work Phone: [facility] Work Phone: Start: 12-04-2022 End: 12-04-2022 Patient encounter procedure MD Gumaro Ordonez Work Phone: [facility] Work Phone: Start: 11-14-2022 End: 11-14-2022 ambulatory [facility] Start: 10-27-2022 End: 10-27-2022 ambulatory Joe Cosme Facility:[facility] Start: 10-27-2022 End: 10-27-2022 Admission to same day surgery center MD Gumaro Ordonez Work Phone: [facility] Work Phone: Start: 10-18-2022 End: 10-18-2022 ambulatory [facility] Start: 10-12-2022 ambulatory Mikey NIELSON Facility:[facility] Start: 10-11-2022 End: 10-15-2022 ambulatory Mikey NIELSON Facility:CD:[id number] Start: 09-22-2022 End: 09-[facility]20[facility] Start: 07-17-2022 End: 07-17-2022 ambulatory [facility] Start: 05-01-2022 End: 05-02-[address] GUMARO ORDONEZ Facility:[facility] Start: 03-22-2022 End: 03-23-[address] GUMARO ORDONEZ Facility:[facility] Start: 10-31-2021 End: 11-01-[address] GUMARO ORDONEZ Facility:[facility] Start: 09-28-2021 End: 09-29-2021 ambulatory ROSA ROSA Facility:[facility] Start: 03-18-2018 End: 03-24-2018 Evaluation and management of inpatient HERNANDEZ Clari GABRIEL Facility:[facility] Start: 03-09-2018 End: 03-13-2018 Evaluation and management of inpatient STEPHANIE CYNTHIA-VEGAI Facility:[facility] Procedures Date Procedure Procedure Detail Performing Clinician Start: 12-04-2022 Capsule endoscopy MD Gumaro Ordonez Work Phone: Start: 10-27-2022 Esophagogastroduodenoscopy MD Gumaro villagran Work Phone: Start: 03-12-2018 Islam of Cardiac Rhythm, Single NATA HOWE ALAMIClari Start: 03-12-2018 ULTRASONOGRAPHY OF RIGHT AND LEFT HEART, TRANSESOPHAGEAL MOSIK CARLEY ALAMIR Start: 03-11-2018 FLUOROSCOPY OF MULTIPLE CORONARY ARTERIES USING OTH CONTRAST OMEGA DALE Start: 03-11-2018 MEASURE OF CARDIAC SAMPL \T\ PRESSURE, R HEART, PERC APPROACH OMEGA DALE Start: 03-11-2018 MEASUREMENT OF ARTERIAL FLOW, PULMONARY, PERC APPROACH OMEGA DALE Plan of Treatment Date Care Activity Detail Author Start: 12-04-2022 [facility] Start: 10-27-2022 [facility] Patient Education Colon polyps H emorrhoids (DC) Diverticulosis (DC) Hiatal Hernia (DC) [facility] Work Phone: Payers Date Payer Category Payer Medicare [id number] 2022 Self-pay 1958 Medicare [id number] 1958 Unknown [id number] 1945 Unknown [id number] 2.16.8 [id number] 1945 Unknown [id number] 2.16.8 [id number] 1945 Unknown [id number] 2.16.84 [id number] 1945 Unknown [id number] 2.16.84 [id number] 1945 Unknown [id number] 2.16.84 [id number] 1945 Unknown [id number] 2.16.84 [id number] 1945 Unknown [id number] 2.16.8 [id number] Unknown Carmen OLIVEIRA/TIMO [id number] Unknown [id number] 2.16.8 [id number] Unknown [id number] 2.16.8 [id number] Social History Date Type Detail Facility Start: 10-27-2022 Tobacco smoking stat us NHIS Never smoked tobacco (finding) [facility] Start: 1945 Sex Assigned At Female F [facility] Goals Date Patient Goal Desired Activity /State Clinical Notes 09-29-2021 to 03-19-2023 Note Date & Type Note Facility 03-19-2023 Note [facility] - [facility] Subjective Percy Kaplan is a 77 y.o. year old female patient being seen for follow up BRIGIDO/cardioversion. She is scheduled for LAAO insertion next week. Denies chest pain, SOB, palpitations, and lightheadedness/syncope. Patient Active Problem List Diagnosis Persistent atrial fibrillation (CMS/HCC) Chronic systolic congestive heart failure (CMS/HCC) Nonrheumatic aortic valve stenosis S/p TAVR (transcatheter aortic valve replacement), bioprosthetic S/P TAVR (transcatheter aortic valve replacement) Family History Problem Relation Name Age of Onset Aortic stenosis Father Other (CABG) Father Social History Tobacco Use Smoking status: Never Smokeless tobacco: Never Substance Use Topics Alcohol use: Not Currently HPI Percy is seen in follow up, I had last seen her on 01/12/[address] Burnett for SALVADOR closure. I had initially met her on 09/22/[address] Burnett due to increased velocities across her TAVR valve. She has had history of aortic valve stenosis status post TAVR in May [address] [facility]. This was using a 23 mm [...] is notorious to exhibit elevated transvalvular gradients. In November 2022 she was admitted to the hospital with GI bleed requiring 5 units of blood transfusion. She underwent multiple investigations including upper and lower endoscopies and capsule endoscopy and there was no evidence of a reversible cause. She is currently maintained on Xarelto for anticoagulation. She had a discussion with her primary supervisor enrobing Dr. Burnett and they agreed that left atrial appendage closure is a good option for her. When I saw her on 01/12/2023 she was in atrial fibrillation with rapid ventricular response. I referred her for BRIGIDO for assessment of the left atrial appendage and interatrial septum as well as to proceed with cardioversion. She underwent BRIGIDO cardioversion on 02/27/2023 and reverted to sinus rhythm. Today she reports that she has been doing relatively well. She has no chest pain. No shortness of breath at her current level of activity. She has bilateral leg swelling. She does not feel palpitation. Review of Systems Cardiovascular: Positive for leg swelling. Skin: Positive for poor wound healing. Musculoskeletal: Positive for muscle weakness. All other systems reviewed and are negative. Objective Visit Vitals BP 105/57 (BP Location: Right wrist, Patient Position: Sitting) Pulse 62 Ht 1.6 m (5' 3 ) SpO2 (!) 89% BMI 47.83 kg/m??? OB Status Postmenopausal Smoking Status Never BSA 2.33 m??? Physical [...] Allergen Reactions Sulfa (Sulfonamide Antibiotics) Anaphylaxis Medications No current outpatient medications on file. Recent Labs Admission on 02/27/2023 Component Date Value WHITE BLOOD CELL COUNT 02/12/2023 8.5 Hemoglobin 02/12/2023 10.4 Hematocrit 02/12/2023 34.2 (A) Platelets 02/12/2023 226 Sodium 02/12/2023 129 Potassium (more content not included)... [facility] 02-27-2023 Note ------ Attestation signed by Jolene [...] No hemodynamic complications noted. Rochelle Diane MD Artificial Insemination Technician - PGY5 [facility] 02-27-2023 Note Patient: Percy salazar Procedure Information Date/Time: 02/27/23 1015 Procedure: Cardioversion/defibrillation Location: [facility] TECHNICAL SUPPORT SPECIALIST HOLDING ROOM / [facility] (Cath) Providers: Jolene Carr MD Clinical information reviewed: Allergies Meds OB Status Physical Exam Airway Mallampati: III TM distance: >3 FB Neck ROM: full Cardiovascular Rhythm: regular Rate: normal Dental Pulmonary Abdominal Anesthesia Plan Additional Equipment Requests [facility] 01-12-2023 Note [facility] - [facility] Subjective Percy Kaplan is a 77 y.o. year old [...] Use Topics Alcohol use: Not Currently HPI Percy is seen in follow up, referred by Dr Burnett for SALVADOR closure. I had met her on 09/22/[address] Burnett due to increased velocities across her TAVR valve. She has had history of aortic valve stenosis status post TAVR in May [address] [facility]. This was using a 23 mm [...] She had a discussion with her primary supervisor enrobing Dr. Burnett and they agreed that left [...] Rfl: coenzyme Q-10 (more content not included)... [facility] 11-29-2022 Note I called and spoke t o patient. Explained the LAAO procedure, pre/post-procedure imaging, post-procedure medications, risks and benefits. She would like to proceed with the procedure. She is pending a video capsule study. Please schedule her for an appt with Dr. Carr for further discussion. [facility] 11-14-2022 Note UTP CARDIOLOGY PROGR ESS NOTE HPI: Percy Kaplan is a 77 y.o. female here [...] and she p (more content not included)... [facility] 11-14-2022 Note Patient here for 4 w kiana follow up GI visit. She underwent upper and lower scopes at [facility]. Per patient, Dr. Cosme cleared her to resume Xarelto, but she has not done so yet. She wanted to discuss with Dr. Burnett first. Still denies chest pain, SOB, palpitations, and bleeding. Patient expressed interest in the Watchman/Amulet device. Review of Systems Musculoskeletal: Positive for muscle weakness. All other systems reviewed and are negative. [facility] 10-18-2022 Note Patient [facility] for [facility] [employer] discharge for GI bleed. She takes Xarelto for afib, but this was stopped, along with aspirin. Chest tightness and SOB has resolved and she's feeling much better. Doing more walking throughout her house. Denies lightheadedness and falls. Review of Systems Musculoskeletal: Positive for muscle weakness. All other systems reviewed and are negative. [facility] 10-18-2022 Note UTP CARDIOLOGY PROGR ESS NOTE HPI: Percy Kaplan is a 77 y.o. female here [...] daily weights, I (more content not included)... [facility] 10-11-2022 Note i [facility] 09-22-2022 Note [facility] - [facility] Subjective Percy Kaplan is a 77 y.o. year old [...] TAVR in May [address] [facility]. This was using a 23 mm [...] , Rfl: Recent (more content not included)... [facility] 07-17-2022 Note Patient here for 6 m o follow up PAF, aortic valve disorder, CHF, carotid artery stenosis, and hypertension. She had echo in Feb 2022 at [facility]. Denies chest pain, SOB, palpitations, and bleeding on Eliquis. Had routine labs in April 2022. Review of Systems Respiratory: Positive for cough. Musculoskeletal: Positive for arthritis, back pain, joint pain, muscle weakness and myalgias. Neurological: Positive for loss of balance. All other systems reviewed and are negative. [facility] 07-17-2022 Note UTP CARDIOLOGY PROGR ESS NOTE HPI: Percy Kaplan is a 77 y.o. female here [...] provided. Patient verbal (more content not included)... [facility] 03-22-2022 Note PROCEDURE: XR ANKLE LT [...] authenticated by: FABRICIO BANKS Date: 2022-03-22 10:42 [facility] 09-29-2021 Note PROCEDURE: XR ANKLE LT [...] authenticated by: GENE BERMUDEZ Date: 2021-09-29 10:11 [facility] Evaluation note No assessment information [facility] Work Phone: Summary Purpose Family History No Family History Records Found Relationship Condition Age at Onset Recorded Date/T oliver Not Specified Malignant neoplasm of pancreas Unknown father Malignant neoplasm of kidney Unknown Malignant neoplasm of liver Unknown Advance Directives No Advanced Directives Records Found Advance Directive Response Recorded Date/ Time Advance Directives No October 10:12am Hospital Course Note MR#: [id number] I [facility] Pt. Name: Catherine Kaplanjudson Roque Admitted: 03/09/2018 Discharged: 03/13/2018 Date of : 1945 Physician: David Simmons MD DISCHARGE SUMMARY DISCHARGING PHYSICIAN: David Simmons MD. PRIMARY CARE PHYSICIAN: Facility Physician. [...] (more content not included)... Note MR#: [id number] I [facility] Pt. Name: Percy Kaplan Admitted: 03/18/2018 Discharged: 03/24/2018 Date of : 1945 Physician: David Gabriel MD DISCHARGE SUMMARY PRINCIPAL DIAGNOSES: 1. [...] was no chest pain. She went to [facility], was found to have elevated BNP. [...] section and content) DATE CREATED AUTHOR 03/26/2018 [facility] DATE CREATED AUTHOR AUTHOR'S ORGANIZ ATION 05/10/2022 [facility] DATE CREATED AUTHOR AUTHOR'S ORGANIZ ATION 11/08/2022 [facility] DATE CREATED AUTHOR AUTHOR'S ORGANIZ ATION 01/17/2023 [facility] DATE CREATED AUTHOR AUTHOR'S ORGANIZ ATION 03/21/2023 [facility] Care Teams (unrecognized sec tion and content) [...] BE BASED ON THE PRIMARY CLINICAL RECORDS. [facility] [employer] [facility]. provides no warranty or guarantee of the accuracy or completeness of information in this document.
== END 2023-03-21 09:57 | disposition home or self-care (01) ==
LOC: RAD 09:56
PROVIDERS: PCP Family Medicine; Visit Provider Podiatrist Foot & Ankle Surgery
DX: M79.672 Pain in left foot (principal); M25.572 Pain in left ankle and joints of left foot; Z98.890 Other specified postprocedural states
CPT/HCPCS: 73610; 73630

== ENCOUNTER 2023-03-23 10:23 | Outpatient (OUT) | payer MEDICARE, SELFPAY ==
--- OUTSIDE RECORDS SUMMARY | 2023-03-23 10:44 | XMS_ITS | CCD ---
Author Name Unknown Address [address] [place] [address] Organization [facility] Care Team Providers Care Industrial Management Teacher Name Role Phone STEPHANIE CARBALLO Referring Unavailable SELF, REFERRED Primary Care Unavailable RAGHAVENDRA PERRY Admitting Unavailable DAVID SIMMONS Attending Unavailable NC Procedure Practitioner Unavailab OMEGA Ramirez Surgeon Unavailable NC Procedure Practitioner Unavailab NATA Tinoco ABD Surgeon [...] NADERER, DR GUMARO Fernandes Primary Care Unavailable SENTINEL, DR FABRICIO Novak Consulting Unavailable HIGHLANDER, ROSA Wadsworth Admitting Unavailable HIGHLANDER, ROSA Wadsworth Attending Unavailable HIGHLANDER, PETER D Consulting Unavailable Mikey NIELSON Attending Unavailable MD Joe Cosme Attending Provider MD Gumaro Ordonez Primary Care Provider Joe Cosme Attending Unavailable Gumaro Ordonez Primary Care Unavailable Joe Cosme Admitting Unavailable Joe Cosme Attending Unavailable Gumaro Ordonez Primary Care Unavailable Joe Cosme Admitting Unavailable MOUKARBEL, JOLENE Attending Unavailable [...] [SULFA (SULFONAMIDE ANTIBIOTICS)] Drug allergy (disorder) 07-11-2013 [facility] Repository (1 source) Sulfonamides (Antibiotic) Drug allergy (disorder) 10-27-2022 [facility] Repository Medications Current Medications Medication Drug Class(es) [...] disease (1 source) Atherosclerotic heart disease of [place] coronary artery without angina pectoris; Translations: [ATHSCL HEART DISEASE OF [place] CORONARY ARTERY W/O ANG PCTRS] Onset: 9 [...] 9 Chronic Other aftercare (1 source) Other intermediate project manager (current) drug therapy; Translations: [OTH APPLICATION DEVELOPMENT DIRECTOR CURRENT DRUG THERAPY] Onset: 3 Episodic Other aftercare (1 source) 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; Translations: [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] Onset: 3 Episodic [...] Range Facility Office Visiton 03-19-2023 Follow-up visit [id number] PrateeksparklePercy 1945 F Date Provider Department Center 03/19/2023 JOLENE LOPEZ EDEN Ge Family History Problem Relation Age of Onset Aortic stenosis Father Other Father Family Status - Relation Status Age at Father Level of Service:68981 [place] OFFICE/OUTPATIENT ESTABLISHED HIGH MDM 40 MIN Normal [facility] Prep for Procedureon 024 Prep for Procedure [id number] VirallesliPercy Roque 1945 F Date Provider Department Center 03/15/2023 LORE BOSE Darci Family History Problem Relation Age of Onset Aortic stenosis Father Other Father Family Status - Relation Status Age at Father Normal [facility] HPon 02-27-2023 HP History Of Present [...] reduce the risk of stroke given elevated [id number] score of 6 due to age, gender, hypertension, diabetes, and heart failure. she is not a good candidate for long-term anticoagulation due to history of gastrointestinal bleeding. We discussed left atrial appendage closure procedure at the clinic visit of 01/12/2023 as an alternative to reduce the risk of stroke. she would like to proceed. She presents today for the RBIGIDO and possible cardioversion and assessment of the TAVR. Past Medical History She has a past medical history of Atrial fibrillation ([facility]), CHF (congestive heart failure) ([facility]), Diabetes mellitus (CMS/HCC), Heart valve disease, Hypertension, PVD (peripheral vascular disease) ([facility]), and Sleep apnea. Surgical History [...] inferior infarct a (more content not included)... [facility] NURSNOTEon 02-27-2023 NURSNOTE RN educated pt on d/c instructions. RN encouraged pt to voice any questions or concerns. Pt verbalizes no questions or concerns at this time. Pt was wheeled off of unit with all of belongings. [facility] NURSNOTE Bedside swallow study completed and passed. [facility] Orders Onlyon 02-22-2023 Orders Only [id number] Percy Kaplan 1945 Date Provider Department Center 02/22/2023 GABRIEL HARTLEY EDEN [facility] Family History Problem Relation Age of Onset Aortic stenosis Father Other Father Family Status - Relation Status Age at Father [facility] Office Visiton 01-12-2023 Follow-up visit [id number] Percy Kaplan 1945 Date Provider Department Center 01/12/2023 JOLENE LOPEZ CARD [facility] Family History Problem Relation Age of Onset Aortic stenosis Father Other Father Family Status - Relation Status Age at Father Level of Service:55945 NC OFFICE/OUTPATIENT ESTABLISHED HIGH MDM 40-54 MIN [facility] Office Visiton 11-14-2022 Follow-up visit [id number] Percy Kaplan 1945 Date Provider Department Center 11/14/2022 384DEN FABIAN CARD [facility] Family History Problem Relation Age of Onset Aortic stenosis Father Other Father Family Status - Relation Status Age at Father Level of Service:27888 NC OFFICE/OUTPATIENT ESTABLISHED LOW MDM 20-29 MIN [facility] Glucose Glucometer (BldC) [M ass/Vol]Ordered By: Joe Cosme on 10-27-2022 Glucose [Mass/Vol] 220 mg/dL [facility] Comment on above: Random Glucose Refer ence Range is dependent on time and content of last meal. Glucose of more than 200 mg/dL in a nonstressed, ambulatory subject supports the diagnosis of Diabetes Mellitus. Glucose Poct Glucometerson 0 10-27-2022 Commemt1 Glu2: Cleaned Meter Normal [facility] Comment on above: Result Comment: PERF ORMED BY: [facility] [place] [address] PATHOLOGIST FILM AND VIDEO GRAPHICS DESIGNER NORMA MONTANA M.D. Performed By: #### G LULS #### Point of Care testing , Glucose [Mass/Vol] 220 mg/dL Normal [facility] Comment on above: Result Comment: Viper Glucose Reference Range is dependent on time and content of last meal. Glucose of more than 200 mg/dL in a nonstressed, ambulatory subject supports the diagnosis of Diabetes Mellitus. Performed By: #### G MELODIE #### Point of Care testing , Ryan 10-27-2022 L Specimen: [id number] Received: 10/27/22 Status: TRAVIS Yessenia Num: [id number] Spec Type: Surgical Subm Dr: Joe Cosme MD Tissues: A Colon Biopsy (ASCND COL) Procedures: HE/2, Gross/Micro L4 Age/ Patient Sex Location Account Attending Physician Percy Kaplan 77/F [id number] Joe Cosme MD SPEC NUM: [id number] RECD: 10/27/22 STATUS: TRAVIS CASAS NUM: [id number] DELMY: 10/27/22- [facility] DR: Joe Cosme MD ENTERED: 10/27/22 [facility] DR: SHAMIR TYPE: Surgical DEPT: S ENTERED BY: [id number] RECV BY: [id number] ORDERED: HE/2, Gross/Micro L4 ORDERED: HE/2, Gross/Micro [...] microscopic examination confirms the diagnosis. CPT Codes 50846 Specimen: [id number] Received: 10/27/22 Status: TRAVIS Casas Num: [id number] Spec Type: Surgical Subm Dr: Joe Cosme MD Tissues: A Colon Biopsy (ASCND COL) Procedures: HE/2, Gross/Micro L4 Patient: Percy Kaplan [id number] (Continued) Signed (signatur e on file) Royer Dominguez MD 10/30/22 1331 Normal [facility] No Panel InformationOrdered By: Joe Cosme on 10-27-2022 Bedside Glucose Comment Glu2: cleaned meter [facility] Office Visiton 10-18-2022 Follow-up visit [id number] Percy Kaplan 1945 F Date Provider Department Center 10/18/2022 3848-DEN BURNETT EDEN [facility] Family History Problem Relation Age of Onset Aortic stenosis Father Other Father Family Status - Relation Status Age at Father Level of Service:13749 NC OFFICE/OUTPATIENT ESTABLISHED MOD MDM 30-39 MIN Normal [facility] Outside Colonoscopyon 2022 Outside Colonoscopy [id number] B#1.00CD:127 Normal [facility] Lab Reportson 10-16-2022 Lab Reports [id number] 6A#1.00CD:127 Normal [facility] Lab Reports [id number] D5#1.00CD:127 Normal [facility] Lab Reports [id number] 6#1.00CD:127 Normal [facility] Lab Reports [id number] 5#1.00CD:127 Normal [facility] Outside Colonoscopyon 2022 Outside Colonoscopy [id number] 2#1.00CD:127 Normal [facility] Consultation Noteon 10-13-19 Consultation Note [id number] 7F#1.00CD:127 Normal [facility] Consultation Note [id number] 7#1.00CD:127 Normal [facility] Lab Reportson 10-12-2022 Lab Reports [id number] 1#1.00CD:127 Normal [facility] Office Visiton 09-22-2022 Follow-up visit [id number] Precy Kaplan 1945 F Date Provider Department Center 09/22/2022 Minal-JOLENE CARR Family History Problem Relation Age of Onset Aortic stenosis Father Other Father Family Status - Relation Status Age at Father Level of Service:40532 NC OFFICE/OUTPATIENT ESTABLISHED MOD MDM 30-39 MIN Reason for Visit and Comments: Follow-up [865303] - Patient is here today per Dr burnett request Valve Disorder [3372] Normal [facility] 36on 08-14-2022 36 Pt called in requesting a refill Normal [facility] Office Visiton 07-17-2022 Follow-up visit [id number] KemalDanica amosisabel Roque 1945 F Date Provider Department Center 07/17/2022 3848-DEN BURNETT CARD [facility] Family History Problem Relation Age of Onset Aortic stenosis Father Other Father Family Status - Relation Status Age at Father Level of Service:73571 NC OFFICE/OUTPATIENT ESTABLISHED LOW MDM 20-29 MIN Normal [facility] CBC AUTO DIFFon 05-01-2022 BASO # 0.1 103/ul Normal 0.0-0.1 [facility] Comment on above: Performed By: #### C BC ####[facility] [address] [place] [address]Dr. Sugey Dominguez Basophils/100 WBC (Bld) 0.8 % Normal 0.2-2.0 [facility] Comment on above: Performed By: #### C BC ####[facility] [address] [place] [address]Dr. Sugey Dominguez EO # 0.2 103/ul Normal 0.0-0.7 [facility] Comment on above: Performed By: #### C BC ####[facility] [address] [place] [address]Dr. Sugey Dominguez Eosinophils/100 WBC (Bld) 3.5 % Normal 0.9-7.0 [facility] Comment on above: Performed By: #### C BC ####[facility] [address] [place] [address]Dr. Sugey Dominguez Erythrocyte distribution width (RBC) [Ratio] 13.6 % Normal 11.0-15.0 [facility] Comment on above: Performed By: #### C BC ####[facility] [address] [place] [address]Dr. Sugey Dominguez Hematocrit (Bld) [Volume fraction] 40.7 % Normal 36.0-48.0 [facility] Comment on above: Performed By: #### C BC ####[facility] [address] [place] [address]Dr. Sugey Dominugez Hemoglobin (Bld) [Mass/Vol] 13.5 g/dL Normal 12.0-16.0 [facility] Comment on above: Performed By: #### C BC ####[facility] [address] [place] [address]Dr. Sugey Dominguez IG # 0.03 10e3/ul Normal 0.00-0.03 [facility] Comment on above: Performed By: #### C BC ####[facility] [address] [place] [address]Dr. Sugey Alberto IG % 0.5 % Normal 0.0-0.5 [facility] Comment on above: Performed By: #### C BC ####[facility] [address] [place] [address]Dr. Sugey Alberto LYMPH # 1.5 103/ul Normal 1.2-3.[address] [facility] Comment on above: Performed By: #### C BC ####[facility] [address] [place] [address]Dr. Sugey Alberto Lymphocytes/100 WBC (Bld) 23.1 % Normal 20.5-60.0 [facility] Comment on above: Performed By: #### C BC ####[facility] [address] [place] [address]Dr. Sugey Alberto MANUAL DIFF REQ NO Normal [facility] Comment on above: Performed By: #### C BC ####[facility] [address] [place] [address]Dr. Sugey Dominguez MCH (RBC) [Entitic mass] 30.8 pg Normal 26.7-34.[address] [facility] Comment on above: Performed By: #### C BC ####[facility] [address] [place] [address]Dr. Sugey Dominguez MCHC (RBC) [Mass/Vol] 33.2 g/dL Normal 29.9-35.[address] [facility] Comment on above: Performed By: #### C BC ####[facility] [address] [place] [address]Dr. Sugey Dominguez MCV (RBC) [Entitic vol] 92.7 fL Normal 81.0-99.0 [facility] Comment on above: Performed By: #### C BC ####[facility] [address] [place] [address]Dr. Sugey Dominguez MONO # 0.4 103/ul Normal 0.3-0.8 [facility] Comment on above: Performed By: #### C BC ####[facility] [address] [place] [address]Dr. Sugey Dominguez Monocytes/100 WBC (Bld) 6.8 % Normal 1.7-12.0 [facility] Comment on above: Performed By: #### C BC ####[facility] [address] [place], [place] [address]Dr. Sugey Dominguez NEUT # 4.2 103/ul Normal 1.4-6.5 [facility] Comment on above: Performed By: #### C BC ####[facility] [address] [place], [place] [address]Dr. Sugey Dominguez Neutrophils/100 WBC (Bld) 65.3 % Normal 43.0-75.0 [facility] Comment on above: Performed By: #### C BC ####[facility] [address] [place], [place] [address]Dr. Sugey Alberto Platelet mean volume (Bld) [Entitic vol] 10.1 fL Normal 9.5-13.5 [facility] Comment on above: Performed By: #### C BC ####[facility] [address] [place] [address]Dr. Sugey Alberto PLT 166 103/ul Normal 150-[address] [facility] Comment on above: Performed By: #### C BC ####[facility] [address] [place] [address]Dr. Mainecatherine Alberto RBC 4.39 106/ul Normal 4.20-5.40 [facility] Comment on above: Performed By: #### C BC ####[facility] [address] [place], [place] [address]BqDr. Sugey Dominguez WBC 6.4 103/ul Normal 4.0-11.0 [facility] Comment on above: Performed By: #### C BC ####[facility] [address] [place], [place] [address]LrDr. Sugey Dominguez FREE T3on 05-01-2022 FREE T3 1.80 pg/mlL Critically low 2.18-3.98 [facility] Comment on above: Performed By: #### L IPID, FT3, TSH, LIVER, BMP #### [facility] [address] [place] [address] [address] Sugey Dominguez FREE T4on 05-01-2022 Free T4 [Mass/Vol] 1.40 ng/dL Normal 0.76-1.46 [facility] Comment on above: Performed By: #### F T4 #### [facility] [address] [place] [address] [address] Sugey Dominguez GLYCOHEMOGLOBIN A1Con 2022 ADA RECOMMENDATION SEE BELOW Normal [facility] Comment on above: Result Comment: ADA RECOMMENDED LIMIT 4.0 - 6.0 ADA THERAPEUTIC TARGET < 7.0 ACTION SUGGESTED > 7.0 Performed By: #### A 1C #### [facility] [address] [place] [address] [address] Sugey Dominguez Glucose [Mass/Vol] 174 mg/dL Normal [facility] Comment on above: Performed By: #### A 1C #### [facility] [address] [place] [address] [address] Sugey Dominguez HbA1c (Bld) [Mass fraction] 7.7 % Critically high 4.5-6.2 [facility] Comment on above: Performed By: #### A 1C #### [facility] [address] [place] [address] [address] Sugey Dominguez LIPID PROFILEon 05-01-2022 CHOL-HDL RATIO NORM SEE BELOW Normal [facility] Comment on above: Result Comment: 3.3 - 4.4 LOW RISK 4.4 - 7.1 AVERAGE RISK 7.1 - 11.0 MODERATE RISK >11.0 HIGH RISK Performed By: #### L IPID, FT3, TSH, LIVER, BMP #### [facility] [address] [place] [address] Dr. Sugey Dominguez Cholesterol [Mass/Vol] 176 mg/dL Normal <=200 Th [facility] Comment on above: Performed By: #### L IPID, FT3, TSH, LIVER, BMP #### [facility] [address] [place] [address] Dr. Sugey Dominguez Cholesterol in HDL [Mass/Vol] 48 mg/dL Normal 40-60 [facility] Comment on above: Performed By: #### L IPID, FT3, TSH, LIVER, BMP #### [facility] [address] [place] [address] Dr. Sugey Dominguez Cholesterol in LDL [Mass/Vol] 80.4 mg/dL Normal [facility] Comment on above: Performed By: #### L IPID, FT3, TSH, LIVER, BMP #### [facility] [address] [place] [address] Dr. Sugey Dominguez Cholesterol.total/Marina sterol in HDL [Mass ratio] 3.7 {ratio} Normal [facility] Comment on above: Performed By: #### L IPID, FT3, TSH, LIVER, BMP #### [facility] [address] [place] [address] Dr. Sugey Dominguez HDL NORMAL > or = 60 mg/dl - LOW CARDIOVASCULAR RISK <40 mg/dl - HIGH CARDIOVASCULAR RISK Normal [facility] Comment on above: Performed By: #### L IPID, FT3, TSH, LIVER, BMP #### [facility] [address] [place] [address] Dr. Sugey Dominguez LDL CALC NORMAL SEE BELOW Normal [facility] Comment on above: Result Comment: <100 mg/dl OPTIMAL 100 - 129 mg/dl NEAR OR ABOVE OPTIMAL 130 - 159 mg/dl BORDERLINE HIGH 160 - 189 mg/dl HIGH >190 mg/dl VERY HIGH Performed By: #### L IPID, FT3, TSH, LIVER, BMP #### [facility] [address] [place], [place] [address] Dr. Sugey Dominguez Triglyceride [Mass/Vol] 238 mg/dL Critically high <=150 [facility] Comment on above: Performed By: #### L IPID, FT3, TSH, LIVER, BMP #### [facility] [address] [place] [address] Dr. Sugey Dominguez VLDL CALC 47.6 mg/dL Normal [facility] Comment on above: Performed By: #### L IPID, FT3, TSH, LIVER, BMP #### [facility] [address] [place] [address] Dr. Sugey Dominguez LIVER PROFILEon 05-01-2022 Albumin [Mass/Vol] 3.8 g/dL Normal 3.4-5.0 [facility] Comment on above: Performed By: #### L IPID, FT3, TSH, LIVER, BMP #### [facility] [address] [place] [address] Dr. Sugey Dominguez Albumin/Globulin [Mass ratio] 0.9 {ratio} Normal [facility] Comment on above: Performed By: #### L IPID, FT3, TSH, LIVER, BMP #### [facility] [address] [place] [address] Dr. Sugey Dominguez ALP [Catalytic activity/Vol] 81 U/L Normal 46-116 [facility] Comment on above: Performed By: #### L IPID, FT3, TSH, LIVER, BMP #### [facility] [address] [place] [address] Dr. Sugey Dominguez ALT [Catalytic activity/Vol] 23 U/L Normal 14-59 [facility] Comment on above: Performed By: #### L IPID, FT3, TSH, LIVER, BMP #### [facility] [address] [place] [address] Dr. Sugey Dominguez AST [Catalytic activity/Vol] 15 U/L Normal 15-37 [facility] Comment on above: Performed By: #### L IPID, FT3, TSH, LIVER, BMP #### [facility] [address] [place] [address] Dr. Sugey Dominguez BILI, CONJUGATED 0.2 mg/dL Normal 0.0-0.2 [facility] Comment on above: Performed By: #### L IPID, FT3, TSH, LIVER, BMP #### [facility] [address] [place] [address] Dr. Sugey Dominguez Bilirubin [Mass/Vol] 0.6 mg/dL Normal 0.2-1.0 [facility] Comment on above: Performed By: #### L IPID, FT3, TSH, LIVER, BMP #### [facility] [address] [place] [address] Dr. Sugey Dominguez Globulin (S) [Mass/Vol] 4.0 g/dL Normal T [facility] Comment on above: Performed By: #### L IPID, FT3, TSH, LIVER, BMP #### [facility] [address] [place] [address] Dr. Sugey Dominguez Protein [Mass/Vol] 7.8 g/dL Normal 6.4-8.2 [facility] Comment on above: Performed By: #### L IPID, FT3, TSH, LIVER, BMP #### [facility] [address] [place] [address] Dr. Sugey Dominguez MICROALBUMIN, RAND URon 04-06 mALB <1.3 Normal <=30.0 [facility] Comment on above: Performed By: #### M ALBR #### [facility] [address] [place] [address] Dr. Sugey Dominguez PROF CHEM 8 (BAS METB)on Anion gap [Moles/Vol] 12.9 mmol/L Normal [facility] Comment on above: Performed By: #### L IPID, FT3, TSH, LIVER, BMP #### [facility] [address] [place] [address] Dr. Sugey Dominguez Calcium [Mass/Vol] 9.6 mg/dL Normal 8.5-10.1 [facility] Comment on above: Performed By: #### L IPID, FT3, TSH, LIVER, BMP #### [facility] [address] [place] [address] Dr. Sugey Dominguez Chloride [Moles/Vol] 96 mmol/L Critically low 98-107 [facility] Comment on above: Performed By: #### L IPID, FT3, TSH, LIVER, BMP #### [facility] [address] [address] [address] Sugey Dominguez CO2 [Moles/Vol] 30.8 mmol/L Normal 21.0-32.0 [facility] Comment on above: Performed By: #### L IPID, FT3, TSH, LIVER, BMP #### [facility] [address] [place] [address] [address] Sugey Dominguez Creatinine [Mass/Vol] 1.74 mg/dL Critically high 0.55-1.02 [facility] Comment on above: Performed By: #### L IPID, FT3, TSH, LIVER, BMP #### [facility] [address] [place] [address] [address] Sugey Dominguez EGFR-AF MARSHALLESE 35 mL/min/1.73m2 Critically low >=[address] [facility] Comment on above: Performed By: #### L IPID, FT3, TSH, LIVER, BMP #### [facility] [address] [address] [address] Sugey Dominguez EGFR-NON AF MARSHALLESE 29 mL/min/1.73m2 Critically low >=60 [facility] Comment on above: Performed By: #### L IPID, FT3, TSH, LIVER, BMP #### [facility] [address] [place] [address] [address] Sugey Dominguez Glucose [Mass/Vol] 195 mg/dL Critically high 74-106 T [facility] Comment on above: Performed By: #### L IPID, FT3, TSH, LIVER, BMP #### [facility] [address] [place] [address] Dr. Sugey Dominguez Potassium [Moles/Vol] 4.7 mmol/L Normal 3.5-5.1 [facility] Comment on above: Performed By: #### L IPID, FT3, TSH, LIVER, BMP #### [facility] [address] [address] [address] Sugey Domignuez Sodium [Moles/Vol] 135 mmol/L Critically low 136-[address] [facility] Comment on above: Performed By: #### L IPID, FT3, TSH, LIVER, BMP #### [facility] [address] [address] [address] Sugey Dominguez Urea nitrogen [Mass/Vol] 47.0 mg/dL Critically high 7.0-18.0 [facility] Comment on above: Performed By: #### L IPID, FT3, TSH, LIVER, BMP #### [facility] [address] [address] [address] Sugey Dominguez Urea nitrogen/Creatinine [Mass ratio] 27.0 mg/mg Normal [facility] Comment on above: Performed By: #### L IPID, FT3, TSH, LIVER, BMP #### [facility] [address] [address] [address] Sugey Dominguez TSHon 05-01-2022 TSH 4.093 uIU/mL Critically high 0.358-3.740 [facility] Comment on above: Performed By: #### L IPID, FT3, TSH, LIVER, BMP #### [facility] [address] [address] [address] Sugey Dominguez GLYCOHEMOGLOBIN A1Con 2021 ADA RECOMMENDATION SEE BELOW Normal [facility] Comment on above: Result Comment: ADA RECOMMENDED LIMIT 4.0 - 6.0 ADA THERAPEUTIC TARGET < 7.0 ACTION SUGGESTED > 7.0 Performed By: #### A 1C ####[facility] [address] [place] [address]Dr. Sugey Dominguez Glucose [Mass/Vol] 183 mg/dL Normal [facility] Comment on above: Performed By: #### A 1C ####[facility] [address] [place] [address]Dr. Sugey Dominguez HbA1c (Bld) [Mass fraction] 8.0 % Critically high 4.5-6.2 [facility] Comment on above: Performed By: #### A 1C ####[facility] [id number] [place], [place] [address]BrDarci Dominguez BASIC METABOLIC PANELon 03-08 Calcium mass conc 9.2 mg/dL Normal 8.6-10.3 [facility] Comment on above: Order Comment: No: D o not add to previous draw Performed By: #### 3 5200 #### [facility] [address] [place] [address], [place] Chloride molar conc 96 mmol/L Low 98-107 [facility] Comment on above: Order Comment: No: D o not add to previous draw Performed By: #### 3 5200 #### [facility] [address] [place] [address], [place] CO2 molar conc 27 mmol/L Normal 21-31 The [facility] Comment on above: Order Comment: No: D o not add to previous draw Performed By: #### 3 5200 #### [facility] [address] [place] [address], [place] Creatinine mass conc 0.70 mg/dL Normal 0.60-1.20 [facility] Comment on above: Order Comment: No: D o not add to previous draw Performed By: #### 3 5200 #### [facility] [address] [place] [address], [place] GFR/1.73 sq M predicted among blacks MDRD vol rate/area (S/P/Bld) mL/min/{1.73_m2} Normal >60 The [facility] Comment on above: Order Comment: No: D o not add to previous draw Result Comment: Calc ulation may not be valid for patients over 70 years Performed By: #### 3 5200 #### [facility] [address] [place] [address], [place] GFR/1.73 sq M predicted among non-blacks MDRD vol rate/area (S/P/Bld) mL/min/{1.73_m2} Normal >60 The [facility] Comment on above: Order Comment: No: D o not add to previous draw Result Comment: Calc ulation may not be valid for patients over 70 years Performed By: #### 3 5200 #### [facility] [address] [place] [address], [facility] Glucose mass conc 210 mg/dL High 70-100 [facility] Comment on above: Order Comment: No: D o not add to previous draw Performed By: #### 3 5200 #### [facility] [address] [place] [address], [facility] Potassium molar conc 4.0 mmol/L Normal 3.5-5.1 [facility] Comment on above: Order Comment: No: D o not add to previous draw Performed By: #### 3 5200 #### [facility] [address] [place] [address], [facility] Sodium molar conc 133 mmol/L Low 136-145 [facility] Comment on above: Order Comment: No: D o not add to previous draw Performed By: #### 3 5200 #### [facility] [address] [facility] [place] [address], [facility] Urea nitrogen mass conc 20 mg/dL Normal 7-25 T he [facility] Comment on above: Order Comment: No: D o not add to previous draw Performed By: #### 3 5200 #### [facility] [address] [facility] [place] [address], [facility] CBC W/DIFFon 03-24-2018 ABS BASOPHILS 0.1 10*3/uL Normal 0.0-0.2 The [facility] Comment on above: Order Comment: No: D o not add to previous draw Performed By: #### 3 5200 #### [facility] [address] [place] [address], [facility] ABS IMM GRANS 0.1 10*3/uL Normal 0.0-0.2 [facility] Comment on above: Order Comment: No: D o not add to previous draw Performed By: #### 3 5200 #### [facility] [address] [place] [address], [facility] ABS NEUTROPHILS 4.7 10*3/uL Normal 1.6-7.6 [facility] Comment on above: Order Comment: No: D o not add to previous draw Performed By: #### 3 5200 #### [facility] [address] [place] [id number], [facility] Basophils #/vol (Bld) 1.1 % High 0.0-1.0 The [facility] Comment on above: Order Comment: No: D o not add to previous draw Performed By: #### 3 5200 #### [facility] [address] [place] [address], [facility] Eosinophils #/vol (Bld) 0.3 10*3/uL Normal 0.0-0.5 [facility] Comment on above: Order Comment: No: D o not add to previous draw Performed By: #### 3 5200 #### [facility] [address] [place] [address], [facility] Eosinophils/100 WBC (Bld) 3.3 % Normal 0.0-6.0 [facility] Comment on above: Order Comment: No: D o not add to previous draw Performed By: #### 3 5200 #### [facility] [address] [place] [address], [facility] Erythrocyte distribution width Ratio (RBC) 16.2 % High 11.5-15.0 [facility] Comment on above: Order Comment: No: D o not add to previous draw Performed By: #### 3 5200 #### [facility] [address] [place] [address], [facility] Hematocrit Volume Fraction (Bld) 42.5 % Normal 36.0-45.0 [facility] Comment on above: Order Comment: No: D o not add to previous draw Performed By: #### 3 5200 #### [facility] [address] [place] [address], [facility] Hemoglobin mass conc (Bld) 13.7 g/dL Normal 12.0-15.0 [facility] Comment on above: Order Comment: No: D o not add to previous draw Performed By: #### 3 5200 #### [facility] [address] [facility] [place] [id number], [facility] IMMATURE GRANS 0.8 % Normal 0.0-1.0 The [facility] Comment on above: Order Comment: No: D o not add to previous draw Performed By: #### 3 5200 #### [facility] [address] [place] [address], [facility] Lymphocytes #/vol (Bld) 1.7 10*3/uL Normal 1.2-4.0 [facility] Comment on above: Order Comment: No: D o not add to previous draw Performed By: #### 3 5200 #### [facility] [address] [place] [address], [facility] Lymphocytes/100 WBC (Bld) 22.1 % Normal 20.0-45.0 [facility] Comment on above: Order Comment: No: D o not add to previous draw Performed By: #### 3 5200 #### [facility] [address] [place] [address], [facility] MCH Entitic mass (RBC) 30.0 pg Normal 27.0-33.0 Th e [facility] Comment on above: Order Comment: No: D o not add to previous draw Performed By: #### 3 5200 #### [facility] [address] [place] [id number], [facility] MCHC mass conc (RBC) 32.2 g/dL Normal 32.0-35.0 [facility] Comment on above: Order Comment: No: D o not add to previous draw Performed By: #### 3 5200 #### [facility] [address] [place] [address], [facility] MCV Entitic volume (RBC) 93.2 fL Normal 82.0-98.0 [facility] Comment on above: Order Comment: No: D o not add to previous draw Performed By: #### 3 5200 #### [facility] [address] [place] [address], [facility] Monocytes #/vol (Bld) 0.7 10*3/uL Normal 0.1-1.0 Th e [facility] Comment on above: Order Comment: No: D o not add to previous draw Performed By: #### 3 5200 #### [facility] [address] [place] [id number], [facility] MONOS 9.8 % Normal 5.0-12.0 [facility] Comment on above: Order Comment: No: D o not add to previous draw Performed By: #### 3 5200 #### [facility] [address] [place] [id number], [facility] Neutrophils/100 WBC (Bld) 62.9 % Normal 40.0-72.0 [facility] Comment on above: Order Comment: No: D o not add to previous draw Performed By: #### 3 5200 #### [facility] [address] [place] [address], [facility] Nucleated RBC/100 WBC Ratio (Bld) 0 % Normal 0-0 [facility] Comment on above: Order Comment: No: D o not add to previous draw Performed By: #### 3 5200 #### [facility] [address] [place] [address], [facility] PLAT CNT 188 10*3/uL Normal 150-400 [facility] Comment on above: Order Comment: No: D o not add to previous draw Performed By: #### 3 5200 #### [facility] [address] [place] [address], [place] RBC #/vol (Bld) 4.56 10*6/uL Normal 3.80-5.00 [facility] Comment on above: Order Comment: No: D o not add to previous draw Performed By: #### 3 5200 #### [facility] [address] [place] [address], [facility] WBC #/vol (Bld) 7.48 10*3/uL Normal 4.00-10.60 [facility] Comment on above: Order Comment: No: D o not add to previous draw Performed By: #### 3 5200 #### [facility] [address] [place] [address], [facility] POC GLUCOSE LABon 03-24-2018 Glucose mass conc 241 mg/dL High 70-100 [facility] Comment on above: Performed By: #### 3 5200 #### [facility] [address] [place] [address], [facility] Glucose mass conc 189 mg/dL High 70-100 [facility] Comment on above: Performed By: #### 3 5200 #### [facility] [address] [place] [address], [facility] BASIC METABOLIC PANELon 03-08 Calcium mass conc 9.1 mg/dL Normal 8.6-10.3 [facility] Comment on above: Order Comment: No: D o not add to previous draw Performed By: #### 3 5200 #### [facility] [address] [place] [address], [place] Chloride molar conc 95 mmol/L Low 98-107 [facility] Comment on above: Order Comment: No: D o not add to previous draw Performed By: #### 3 5200 #### [facility] [address] [place] [address], [place] CO2 molar conc 32 mmol/L High 21-31 [facility] Comment on above: Order Comment: No: D o not add to previous draw Performed By: #### 3 5200 #### [facility] [address] [place] [address], [facility] Creatinine mass conc 0.71 mg/dL Normal 0.60-1.20 [facility] Comment on above: Order Comment: No: D o not add to previous draw Performed By: #### 3 5200 #### [facility] [address] [place] [address], [facility] GFR/1.73 sq M predicted among blacks MDRD vol rate/area (S/P/Bld) mL/min/{1.73_m2} Normal >60 The [facility] Comment on above: Order Comment: No: D o not add to previous draw Result Comment: Calc ulation may not be valid for patients over 70 years Performed By: #### 3 5200 #### [facility] [address] [place] [address], [facility] GFR/1.73 sq M predicted among non-blacks MDRD vol rate/area (S/P/Bld) mL/min/{1.73_m2} Normal >60 [facility] Comment on above: Order Comment: No: D o not add to previous draw Result Comment: Calc ulation may not be valid for patients over 70 years Performed By: #### 3 5200 #### [facility] [address] [place] [address], [facility] Glucose mass conc 189 mg/dL High 70-100 [facility] Comment on above: Order Comment: No: D o not add to previous draw Performed By: #### 3 5200 #### [facility] [address] [place] [address], [facility] Potassium molar conc 3.7 mmol/L Normal 3.5-5.1 [facility] Comment on above: Order Comment: No: D o not add to previous draw Performed By: #### 3 5200 #### [facility] [address] [place] [address], [facility] Sodium molar conc 134 mmol/L Low 136-145 [facility] Comment on above: Order Comment: No: D o not add to previous draw Performed By: #### 3 5200 #### [facility] [address] [place] [address], [facility] Urea nitrogen mass conc 19 mg/dL Normal 7-25 T he [facility] Comment on above: Order Comment: No: D o not add to previous draw Performed By: #### 3 5200 #### [facility] [address] [place] [address], [facility] CBC COMPLETE BLOOD COUNTon 0 - Erythrocyte distribution width Ratio (RBC) 16.2 % High 11.5-15.0 [facility] Comment on above: Order Comment: No: D o not add to previous draw Performed By: #### 3 5200 #### [facility] [address] [place] [address], [facility] Hematocrit Volume Fraction (Bld) 42.5 % Normal 36.0-45.0 [facility] Comment on above: Order Comment: No: D o not add to previous draw Performed By: #### 3 5200 #### [facility] [address] [place] [address], [facility] Hemoglobin mass conc (Bld) 13.6 g/dL Normal 12.0-15.0 [facility] Comment on above: Order Comment: No: D o not add to previous draw Performed By: #### 3 5200 #### [facility] [address] [place] [address], [place] MCH Entitic mass (RBC) 29.9 pg Normal 27.0-33.0 Th e [facility] Comment on above: Order Comment: No: D o not add to previous draw Performed By: #### 3 5200 #### [facility] [address] [place] [address], [facility] MCHC mass conc (RBC) 32.0 g/dL Normal 32.0-35.0 [facility] Comment on above: Order Comment: No: D o not add to previous draw Performed By: #### 3 5200 #### [facility] [address] MCV Entitic volume (RBC) 93.4 fL Normal 82.0-98.0 [facility] Comment on above: Order Comment: No: D o not add to previous draw Performed By: #### 3 5200 #### [facility] [address] [facility]. [address] Nucleated RBC/100 WBC Ratio (Bld) 0 % Normal 0-0 [facility] Comment on above: Order Comment: No: D o not add to previous draw Performed By: #### 3 5200 #### [facility] [address] [facility] [place] [address], [facility] PLAT CNT 198 10*3/uL Normal 150-400 [facility] Comment on above: Order Comment: No: D o not add to previous draw Performed By: #### 3 5200 #### [facility] [address] [facility]. [address] RBC #/vol (Bld) 4.55 10*6/uL Normal 3.80-5.00 [facility] Comment on above: Order Comment: No: D o not add to previous draw Performed By: #### 3 5200 #### [facility] [address] [place] [address], [facility] WBC #/vol (Bld) 7.49 10*3/uL Normal 4.00-10.60 [facility] Comment on above: Order Comment: No: D o not add to previous draw Performed By: #### 3 5200 #### [facility] [address] POC GLUCOSE LABon 03-23-2018 Glucose mass conc 178 mg/dL High 70-100 [facility] Comment on above: Performed By: #### 3 5200 #### [facility] [address] [place] [address], [place] Glucose mass conc 163 mg/dL High 70-100 [facility] Comment on above: Performed By: #### 3 5200 #### [facility] [address] [place] [address], [place] Glucose mass conc 194 mg/dL High 70-100 [facility] Comment on above: Performed By: #### 3 5200 #### [facility] [address] [place] [address], [place] Glucose mass conc 164 mg/dL High 70-100 [facility] Comment on above: Performed By: #### 3 5200 #### [facility] [address] [place] [address], [place] BASIC METABOLIC PANELon - Calcium mass conc 9.0 mg/dL Normal 8.6-10.3 [facility] Comment on above: Order Comment: No: D o not add to previous draw Performed By: #### 3 5200 #### [facility] [address] [place] [address], [place] Chloride molar conc 95 mmol/L Low 98-107 [facility] Comment on above: Order Comment: No: D o not add to previous draw Performed By: #### 3 5200 #### [facility] [address] [place] [address], [place] CO2 molar conc 36 mmol/L High 21-31 [facility] Comment on above: Order Comment: No: D o not add to previous draw Performed By: #### 3 5200 #### [facility] [address] [place] [address], [place] Creatinine mass conc 0.61 mg/dL Normal 0.60-1.20 [facility] Comment on above: Order Comment: No: D o not add to previous draw Performed By: #### 3 5200 #### [facility] [address] [place] [address], [facility] GFR/1.73 sq M predicted among blacks MDRD vol rate/area (S/P/Bld) mL/min/{1.73_m2} Normal >60 [facility] Comment on above: Order Comment: No: D o not add to previous draw Result Comment: Calc ulation may not be valid for patients over 70 years Performed By: #### 3 5200 #### [facility] [address] [place] [address], [facility] GFR/1.73 sq M predicted among non-blacks MDRD vol rate/area (S/P/Bld) mL/min/{1.73_m2} Normal >60 [facility] Comment on above: Order Comment: No: D o not add to previous draw Result Comment: Calc ulation may not be valid for patients over 70 years Performed By: #### 3 5200 #### [facility] [address] [place] [address], [facility] Glucose mass conc 152 mg/dL High 70-100 [facility] Comment on above: Order Comment: No: D o not add to previous draw Performed By: #### 3 5200 #### [facility] [address] [place] [address], [facility] Potassium molar conc 3.5 mmol/L Normal 3.5-5.1 [facility] Comment on above: Order Comment: No: D o not add to previous draw Performed By: #### 3 5200 #### [facility] [address] [place] [address], [facility] Sodium molar conc 137 mmol/L Normal 136-145 [facility] Comment on above: Order Comment: No: D o not add to previous draw Performed By: #### 3 5200 #### [facility] [address] [place] [address], [facility] Urea nitrogen mass conc 17 mg/dL Normal 7-25 T he [facility] Comment on above: Order Comment: No: D o not add to previous draw Performed By: #### 3 5200 #### [facility] [address] [place] [address], [facility] CBC COMPLETE BLOOD COUNTon 0 - Erythrocyte distribution width Ratio (RBC) 16.2 % High 11.5-15.0 [facility] Comment on above: Order Comment: No: D o not add to previous draw Performed By: #### 3 5200 #### [facility] [address] [place] [address], [facility] Hematocrit Volume Fraction (Bld) 42.6 % Normal 36.0-45.0 [facility] Comment on above: Order Comment: No: D o not add to previous draw Performed By: #### 3 5200 #### [facility] [address] [place] [address], [facility] Hemoglobin mass conc (Bld) 13.4 g/dL Normal 12.0-15.0 [facility] Comment on above: Order Comment: No: D o not add to previous draw Performed By: #### 3 5200 #### [facility] [address] [place] [address], [facility] MCH Entitic mass (RBC) 29.4 pg Normal 27.0-33.0 Th e [facility] Comment on above: Order Comment: No: D o not add to previous draw Performed By: #### 3 5200 #### [facility] [address] [place] [address], [facility] MCHC mass conc (RBC) 31.5 g/dL Low 32.0-35.0 [facility] Comment on above: Order Comment: No: D o not add to previous draw Performed By: #### 3 5200 #### [facility] [address] [place] [address], [facility] MCV Entitic volume (RBC) 93.4 fL Normal 82.0-98.0 [facility] Comment on above: Order Comment: No: D o not add to previous draw Performed By: #### 3 5200 #### [facility] [address] [place] [address], [facility] Nucleated RBC/100 WBC Ratio (Bld) 0 % Normal 0-0 [facility] Comment on above: Order Comment: No: D o not add to previous draw Performed By: #### 3 5200 #### [facility] [address] [place] [address], [facility] PLAT CNT 197 10*3/uL Normal 150-400 [facility] Comment on above: Order Comment: No: D o not add to previous draw Performed By: #### 3 5200 #### [facility] [address] [place] [id number], [facility] RBC #/vol (Bld) 4.56 10*6/uL Normal 3.80-5.00 [facility] Comment on above: Order Comment: No: D o not add to previous draw Performed By: #### 3 5200 #### [facility] [address] [place] [address], [facility] WBC #/vol (Bld) 7.53 10*3/uL Normal 4.00-10.60 [facility] Comment on above: Order Comment: No: D o not add to previous draw Performed By: #### 3 5200 #### [facility] [address] [place] [address], [facility] POC GLUCOSE LABon 03-22-2018 Glucose mass conc 187 mg/dL High 70-100 [facility] Comment on above: Performed By: #### 3 5200 #### [facility] [address] [place] [address], [facility] Glucose mass conc 161 mg/dL High 70-100 [facility] Comment on above: Performed By: #### 3 5200 #### [facility] [address] [place] [address], [place] Glucose mass conc 226 mg/dL High 70-100 [facility] Comment on above: Performed By: #### 3 5200 #### [facility] [address] [place] [address], [place] Glucose mass conc 175 mg/dL High 70-100 [facility] Comment on above: Performed By: #### 3 5200 #### [facility] [address] [place] [address], [place] Glucose mass conc 148 mg/dL High 70-100 [facility] Comment on above: Performed By: #### 3 5200 #### [facility] [address] [place] [address], [place] Glucose mass conc 191 mg/dL High 70-100 [facility] Comment on above: Performed By: #### 5 6101, 20879 #### [facility] [address] [place] [address], [place] BASIC METABOLIC PANELon 03-08 Calcium mass conc 9.1 mg/dL Normal 8.6-10.3 [facility] Comment on above: Order Comment: No: D o not add to previous draw Performed By: #### 5 6101, 43010 #### [facility] [address] [place] [address], [place] Chloride molar conc 95 mmol/L Low 98-107 [facility] Comment on above: Order Comment: No: D o not add to previous draw Performed By: #### 5 6101, 44078 #### [facility] [address] [place] [address], [place] CO2 molar conc 36 mmol/L High 21-31 [facility] Comment on above: Order Comment: No: D o not add to previous draw Performed By: #### 5 610, 73673 #### [facility] [address] [place] [address], [facility] Creatinine mass conc 0.68 mg/dL Normal 0.60-1.20 [facility] Comment on above: Order Comment: No: D o not add to previous draw Performed By: #### 5 610, 74069 #### [facility] [address] [place] [address], [facility] GFR/1.73 sq M predicted among blacks MDRD vol rate/area (S/P/Bld) mL/min/{1.73_m2} Normal >60 [facility] Comment on above: Order Comment: No: D o not add to previous draw Result Comment: Calc ulation may not be valid for patients over 70 years Performed By: #### 5 610, 14630 #### [facility] [address] [place] [address], [facility] GFR/1.73 sq M predicted among non-blacks MDRD vol rate/area (S/P/Bld) mL/min/{1.73_m2} Normal >60 [facility] Comment on above: Order Comment: No: D o not add to previous draw Result Comment: Calc ulation may not be valid for patients over 70 years Performed By: #### 5 610, 14341 #### [facility] [address] [place] [address], [facility] Glucose mass conc 147 mg/dL High 70-100 [facility] Comment on above: Order Comment: No: D o not add to previous draw Performed By: #### 5 610, 45509 #### [facility] [address] [place] [address], [facility] Potassium molar conc 3.6 mmol/L Normal 3.5-5.1 [facility] Comment on above: Order Comment: No: D o not add to previous draw Performed By: #### 5 610, 62917 #### [facility] [address] [place] [address], [facility] Sodium molar conc 139 mmol/L Normal 136-145 [facility] Comment on above: Order Comment: No: D o not add to previous draw Performed By: #### 5 610, 80481 #### [facility] [address] [place] [address], [facility] Urea nitrogen mass conc 14 mg/dL Normal 7-25 T [facility] Comment on above: Order Comment: No: D o not add to previous draw Performed By: #### 5 6100, 36538 #### [facility] [address] [place] [address], [facility] CBC COMPLETE BLOOD COUNTon 0 - Erythrocyte distribution width Ratio (RBC) 16.2 % High 11.5-15.0 [facility] Comment on above: Order Comment: No: D o not add to previous draw Performed By: #### 5 6100, 67407 #### [facility] [address] [place] [address], [facility] Hematocrit Volume Fraction (Bld) 42.0 % Normal 36.0-45.0 [facility] Comment on above: Order Comment: No: D o not add to previous draw Performed By: #### 5 6100, 99865 #### [facility] [address] [place] [address], [facility] Hemoglobin mass conc (Bld) 13.5 g/dL Normal 12.0-15.0 [facility] Comment on above: Order Comment: No: D o not add to previous draw Performed By: #### 5 610, 79437 #### [facility] [address] [place] [address], [facility] MCH Entitic mass (RBC) 30.0 pg Normal 27.0-33.0 Th e [facility] Comment on above: Order Comment: No: D o not add to previous draw Performed By: #### 5 610, 25265 #### [facility] [address] MCHC mass conc (RBC) 32.1 g/dL Normal 32.0-35.0 [facility] Comment on above: Order Comment: No: D o not add to previous draw Performed By: #### 5 610, 24410 #### [facility] [address] [place] [address], [facility] MCV Entitic volume (RBC) 93.3 fL Normal 82.0-98.0 [facility] Comment on above: Order Comment: No: D o not add to previous draw Performed By: #### 5 6100, 10467 #### [facility] [address] [place] [address], [facility] Nucleated RBC/100 WBC Ratio (Bld) 0 % Normal 0-0 [facility] Comment on above: Order Comment: No: D o not add to previous draw Performed By: #### 5 6100, 91394 #### [facility] [address] [place] [address], [facility] PLAT CNT 196 10*3/uL Normal 150-400 [facility] Comment on above: Order Comment: No: D o not add to previous draw Performed By: #### 5 610, 38270 #### [facility] [address] [place] [address], [facility] RBC #/vol (Bld) 4.50 10*6/uL Normal 3.80-5.00 [facility] Comment on above: Order Comment: No: D o not add to previous draw Performed By: #### 5 610, 65043 #### [facility] [address] [place] [id number], [facility] WBC #/vol (Bld) 7.89 10*3/uL Normal 4.00-10.60 [facility] Comment on above: Order Comment: No: D o not add to previous draw Performed By: #### 5 6101, 22559 #### [facility] [address] [place] [address], [place] POC GLUCOSE LABon 03-21-2018 Glucose mass conc 174 mg/dL High 70-100 [facility] Comment on above: Performed By: #### 5 610, 12982 #### [facility] [address] [place] [address], [place] Glucose mass conc 129 mg/dL High 70-100 [facility] Comment on above: Performed By: #### 5 6100, 01451 #### [facility] [address] [place] [address], [place] Glucose mass conc 280 mg/dL High 70-100 [facility] Comment on above: Performed By: #### 5 6100, 32563 #### [facility] [address] [place] [address], [place] BASIC METABOLIC PANELon 03-08 Calcium mass conc 9.2 mg/dL Normal 8.6-10.3 [facility] Comment on above: Order Comment: No: D o not add to previous draw Performed By: #### 5 610, 29350 #### [facility] [address] [place] [address], [place] Chloride molar conc 96 mmol/L Low 98-107 [facility] Comment on above: Order Comment: No: D o not add to previous draw Performed By: #### 5 610, 04977 #### [facility] [address] [place] [address], [place] CO2 molar conc 33 mmol/L High 21-31 [facility] Comment on above: Order Comment: No: D o not add to previous draw Performed By: #### 5 610, 71086 #### [facility] [address] [place] [address], [place] Creatinine mass conc 0.69 mg/dL Normal 0.60-1.20 [facility] Comment on above: Order Comment: No: D o not add to previous draw Performed By: #### 5 6101, 15698 #### [facility] [address] [place] [address], [facility] GFR/1.73 sq M predicted among blacks MDRD vol rate/area (S/P/Bld) mL/min/{1.73_m2} Normal >60 The [facility] Comment on above: Order Comment: No: D o not add to previous draw Result Comment: Calc ulation may not be valid for patients over 70 years Performed By: #### 5 6101, 19114 #### [facility] [address] [place] [address], [facility] GFR/1.73 sq M predicted among non-blacks MDRD vol rate/area (S/P/Bld) mL/min/{1.73_m2} Normal >60 The [facility] Comment on above: Order Comment: No: D o not add to previous draw Result Comment: Calc ulation may not be valid for patients over 70 years Performed By: #### 5 6101, 47662 #### [facility] [address] [place] [address], [facility] Glucose mass conc 134 mg/dL High 70-100 [facility] Comment on above: Order Comment: No: D o not add to previous draw Performed By: #### 5 6101, 16012 #### [facility] [address] [place] [address], [facility] Potassium molar conc 4.1 mmol/L Normal 3.5-5.1 [facility] Comment on above: Order Comment: No: D o not add to previous draw Performed By: #### 5 6101, 06006 #### [facility] [address] [place] [address], [place] Sodium molar conc 137 mmol/L Normal 136-145 [facility] Comment on above: Order Comment: No: D o not add to previous draw Performed By: #### 5 610, 39049 #### [facility] [address] [place] [address], [place] Urea nitrogen mass conc 13 mg/dL Normal 7-25 T he [facility] Comment on above: Order Comment: No: D o not add to previous draw Performed By: #### 5 610, 98031 #### [facility] [address] [place] [address], [place] MAGNESIUM BLOODon 03-20-2018 Magnesium mass conc 1.9 mg/dL Normal 1.9-2.7 [facility] Comment on above: Order Comment: No: D o not add to previous draw Performed By: #### 5 610, 75807 #### [facility] [address] [place] [address], [place] POC GLUCOSE LABon 03-20-2018 Glucose mass conc 109 mg/dL High 70-100 [facility] Comment on above: Performed By: #### 5 610, 31111 #### [facility] [address] [place] [address], [place] Glucose mass conc 194 mg/dL High 70-100 [facility] Comment on above: Performed By: #### 5 610, 24428 #### [facility] [address] [place] [address], [place] Glucose mass conc 119 mg/dL High 70-100 [facility] Comment on above: Performed By: #### 5 610, 17812 #### [facility] [address] [place] [address], [place] Glucose mass conc 203 mg/dL High 70-100 [facility] Comment on above: Performed By: #### 5 6101, 69042 #### [facility] [address] [place] [address], [place] APTTon 03-19-2018 aPTT Coag time (Bld) 32.1 s Normal 25.0-35.0 [facility] Comment on above: Order Comment: No: [...] THIS PURPOSE. Performed By: #### 5 6101, 37138 #### [facility] [address] [place] [address], [facility] BASIC METABOLIC PANELon 03-08 Calcium mass conc 9.2 mg/dL Normal 8.6-10.3 [facility] Comment on above: Order Comment: No: D o not add to previous draw Performed By: #### 5 610, 92892 #### [facility] [address] [place] [address], [facility] Chloride molar conc 95 mmol/L Low 98-107 [facility] Comment on above: Order Comment: No: D o not add to previous draw Performed By: #### 5 610, 74649 #### [facility] [address] [place] [address], [place] CO2 molar conc 34 mmol/L High 21-31 The [facility] Comment on above: Order Comment: No: D o not add to previous draw Performed By: #### 5 6101, 12371 #### [facility] [address] [place] [address], [facility] Creatinine mass conc 0.55 mg/dL Low 0.60-1.20 [facility] Comment on above: Order Comment: No: D o not add to previous draw Performed By: #### 5 6101, 12922 #### [facility] [address] [place] [address], [place] GFR/1.73 sq M predicted among blacks MDRD vol rate/area (S/P/Bld) mL/min/{1.73_m2} Normal >60 The [facility] Comment on above: Order Comment: No: D o not add to previous draw Result Comment: Calc ulation may not be valid for patients over 70 years Performed By: #### 5 6101, 99871 #### [facility] [address] [place] [address], [place] GFR/1.73 sq M predicted among non-blacks MDRD vol rate/area (S/P/Bld) mL/min/{1.73_m2} Normal >60 [facility] Comment on above: Order Comment: No: D o not add to previous draw Result Comment: Calc ulation may not be valid for patients over 70 years Performed By: #### 5 610, 72681 #### [facility] [address] [place] [address], [place] Glucose mass conc 136 mg/dL High 70-100 [facility] Comment on above: Order Comment: No: D o not add to previous draw Performed By: #### 5 610, 01626 #### [facility] [address] [place] [address], [place] Potassium molar conc 3.4 mmol/L Low 3.5-5.1 [facility] Comment on above: Order Comment: No: D o not add to previous draw Performed By: #### 5 610, 49878 #### [facility] [address] [place] [address], [place] Sodium molar conc 137 mmol/L Normal 136-145 [facility] Comment on above: Order Comment: No: D o not add to previous draw Performed By: #### 5 610, 28971 #### [facility] [address] [place] [address], [place] Urea nitrogen mass conc 11 mg/dL Normal 7-25 T he [facility] Comment on above: Order Comment: No: D o not add to previous draw Performed By: #### 5 610, 45219 #### [facility] [address] [facility] [place] [address], [facility] CBC W/DIFFon 03-19-2018 ABS BASOPHILS 0.1 10*3/uL Normal 0.0-0.2 The [facility] Comment on above: Order Comment: No: D o not add to previous draw Performed By: #### 5 610, 84058 #### [facility] [address] [facility] [place] [address], [facility] ABS IMM GRANS 0.1 10*3/uL Normal 0.0-0.2 [facility] Comment on above: Order Comment: No: D o not add to previous draw Performed By: #### 5 610, 58113 #### [facility] [address] [facility]. [address] ABS NEUTROPHILS 6.1 10*3/uL Normal 1.6-7.6 [facility] Comment on above: Order Comment: No: D o not add to previous draw Performed By: #### 5 610, 57357 #### [facility] [address] [facility]. [address] Basophils #/vol (Bld) 0.8 % Normal 0.0-1.0 [facility] Comment on above: Order Comment: No: D o not add to previous draw Performed By: #### 5 610, 87018 #### [facility] [address] [facility] [place] [address], [facility] Eosinophils #/vol (Bld) 0.2 10*3/uL Normal 0.0-0.5 [facility] Comment on above: Order Comment: No: D o not add to previous draw Performed By: #### 5 610, 23158 #### [facility] [address] [facility] [place] [address], [facility] Eosinophils/100 WBC (Bld) 1.9 % Normal 0.0-6.0 [facility] Comment on above: Order Comment: No: D o not add to previous draw Performed By: #### 5 6100, 00420 #### [facility] [address] Erythrocyte distribution width Ratio (RBC) 16.4 % High 11.5-15.0 [facility] Comment on above: Order Comment: No: D o not add to previous draw Performed By: #### 5 6100, 28679 #### [facility] [address] Hematocrit Volume Fraction (Bld) 43.7 % Normal 36.0-45.0 [facility] Comment on above: Order Comment: No: D o not add to previous draw Performed By: #### 5 6100, 60470 #### [facility] [address] Hemoglobin mass conc (Bld) 14.0 g/dL Normal 12.0-15.0 [facility] Comment on above: Order Comment: No: D o not add to previous draw Performed By: #### 5 6100, 93732 #### [facility] [address] [facility] [address] IMMATURE GRANS 0.7 % Normal 0.0-1.0 The [facility] Comment on above: Order Comment: No: D o not add to previous draw Performed By: #### 5 6100, 06344 #### [facility] [address] [facility] [address] Lymphocytes #/vol (Bld) 1.7 10*3/uL Normal 1.2-4.0 [facility] Comment on above: Order Comment: No: D o not add to previous draw Performed By: #### 5 610, 69593 #### [facility] [address] [place] [address], [facility] Lymphocytes/100 WBC (Bld) 19.1 % Low 20.0-45.0 [facility] Comment on above: Order Comment: No: D o not add to previous draw Performed By: #### 5 6100, 60687 #### [facility] [address] [place] [address], [facility] MCH Entitic mass (RBC) 29.5 pg Normal 27.0-33.0 Th e [facility] Comment on above: Order Comment: No: D o not add to previous draw Performed By: #### 5 6100, 20445 #### [facility] [address] [place] [address], [facility] MCHC mass conc (RBC) 32.0 g/dL Normal 32.0-35.0 [facility] Comment on above: Order Comment: No: D o not add to previous draw Performed By: #### 5 6100, 37347 #### [facility] [address] [place] [address], [facility] MCV Entitic volume (RBC) 92.0 fL Normal 82.0-98.0 [facility] Comment on above: Order Comment: No: D o not add to previous draw Performed By: #### 5 6100, 72419 #### [facility] [address] [place] [address], [facility] Monocytes #/vol (Bld) 0.6 10*3/uL Normal 0.1-1.0 e [facility] Comment on above: Order Comment: No: D o not add to previous draw Performed By: #### 5 6100, 26714 #### [facility] [address] [place] [address], [facility] MONOS 7.0 % Normal 5.0-12.0 [facility] Comment on above: Order Comment: No: D o not add to previous draw Performed By: #### 5 610, 56254 #### [facility] [address] [place] [address], [facility] Neutrophils/100 WBC (Bld) 70.5 % Normal 40.0-72.0 [facility] Comment on above: Order Comment: No: D o not add to previous draw Performed By: #### 5 6101, 99647 #### [facility] [address] [facility]. [address] Nucleated RBC/100 WBC Ratio (Bld) 0 % Normal 0-0 [facility] Comment on above: Order Comment: No: D o not add to previous draw Performed By: #### 5 6101, 57907 #### [facility] [address] [facility]. [address] PLAT CNT 200 10*3/uL Normal 150-400 [facility] Comment on above: Order Comment: No: D o not add to previous draw Performed By: #### 5 6101, 12211 #### [facility] [address] RBC #/vol (Bld) 4.75 10*6/uL Normal 3.80-5.00 [facility] Comment on above: Order Comment: No: D o not add to previous draw Performed By: #### 5 6101, 95239 #### [facility] [address] [facility] [place] [address], [facility] WBC #/vol (Bld) 8.62 10*3/uL Normal 4.00-10.60 [facility] Comment on above: Order Comment: No: D o not add to previous draw Performed By: #### 5 6101, 25442 #### [address] CHEST AND LATERALon 03-19-19 19 CHEST AND LATERAL [facility] Department of Radiology [address] [place] [id number] Patient Name: PERCY KAPLAN : 1945 Sex: F Age: Race: White Pt. Location: [address] [place] [address] Patient Status: I Ordered Date: 03/19/2018 12:15:00 [...] cardiomegaly. Electronically signed by:Franklyn Nicolas. Transcribed by: [email or web address], User Resident: Electronically Signed by: FRANKLYN NICOLAS @ 03/19/2018 08:20 AM Normal [facility] Comment on above: Order Comment: No: D o not add to previous draw COMP METABOLIC PANELon 03-19 Albumin mass conc 3.3 g/dL Low 3.5-5.7 [facility] Comment on above: Order Comment: No: D o not add to previous draw Performed By: #### 5 6101, 30856 #### [facility] [address] [facility] [place] [address], [facility] ALKALINE PHOSPH 58 IU/L Normal 34-104 [facility] Comment on above: Order Comment: No: D o not add to previous draw Performed By: #### 5 610, 46141 #### [facility] [address] [place] [address], [place] ALT enzyme act/vol 28 U/L Normal 7-52 [facility] Comment on above: Order Comment: No: D o not add to previous draw Performed By: #### 5 610, 67906 #### [facility] [address] [place] [address], [place] AST enzyme act/vol 22 U/L Normal 13-39 [facility] Comment on above: Order Comment: No: D o not add to previous draw Performed By: #### 5 610, 99608 #### [facility] [address] [place] [address], [place] Bilirubin mass conc 1.9 mg/dL High 0.3-1.0 [facility] Comment on above: Order Comment: No: D o not add to previous draw Performed By: #### 5 610, 43353 #### [facility] [address] [place] [address], [place] Calcium mass conc 9.0 mg/dL Normal 8.6-10.3 [facility] Comment on above: Order Comment: No: D o not add to previous draw Performed By: #### 5 610, 56437 #### [facility] [address] [place] [address], [place] Chloride molar conc 94 mmol/L Low 98-107 [facility] Comment on above: Order Comment: No: D o not add to previous draw Performed By: #### 5 610, 17634 #### [facility] [address] [place] [address], [place] CO2 molar conc 36 mmol/L High 21-31 The [facility] Comment on above: Order Comment: No: D o not add to previous draw Performed By: #### 5 610, 80606 #### [facility] [address] [place] [address], [facility] Creatinine mass conc 0.61 mg/dL Normal 0.60-1.20 [facility] Comment on above: Order Comment: No: D o not add to previous draw Performed By: #### 5 610, 81719 #### [facility] [address] [place] [address], [facility] GFR/1.73 sq M predicted among blacks MDRD vol rate/area (S/P/Bld) mL/min/{1.73_m2} Normal >60 The [facility] Comment on above: Order Comment: No: D o not add to previous draw Result Comment: Calc ulation may not be valid for patients over 70 years Performed By: #### 5 610, 90391 #### [facility] [address] [place] [address], [facility] GFR/1.73 sq M predicted among non-blacks MDRD vol rate/area (S/P/Bld) mL/min/{1.73_m2} Normal >60 The [facility] Comment on above: Order Comment: No: D o not add to previous draw Result Comment: Calc ulation may not be valid for patients over 70 years Performed By: #### 5 610, 23128 #### [facility] [address] [place] [address], [facility] Glucose mass conc 210 mg/dL High 70-100 [facility] Comment on above: Order Comment: No: D o not add to previous draw Performed By: #### 5 610, 57164 #### [facility] [address] [place] [address], [facility] Potassium molar conc 3.3 mmol/L Low 3.5-5.1 [facility] Comment on above: Order Comment: No: D o not add to previous draw Performed By: #### 5 610, 91024 #### [facility] [address] [place] [id number], [facility] Protein mass conc 6.3 g/dL Normal 6.0-8.3 [facility] Comment on above: Order Comment: No: D o not add to previous draw Performed By: #### 5 6101, 61756 #### [facility] [address] [place] [address], [facility] Sodium molar conc 137 mmol/L Normal 136-145 [facility] Comment on above: Order Comment: No: D o not add to previous draw Performed By: #### 5 6101, 17825 #### [facility] [address] [place] [address], [facility] Urea nitrogen mass conc 11 mg/dL Normal 7-25 T he [facility] Comment on above: Order Comment: No: D o not add to previous draw Performed By: #### 5 6101, 44016 #### [facility] [address] [place] [address], [facility] History and Physicalon 03-19 History and Physical MR#: [id number] [facility] Pt. 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 She was admitted to [facility] where she was found to be [...] stenosis during her last hospitalization here at [facility] earlier this month. There was a discussion with Cardiology service about aortic valve replacement, whether to have TAVR versus open heart surgery and that decision has not been made yet. She was supposed to follow up with our Cardiology service next week. Transfer was initiated from [place] for further evaluation from our Cardiology service and also due to concern at [place] whether she needed urgent valve replacement done [...] heart rate 73, respiratory rate 23, blood [id number], pulse ox 99% 2L NC. EYES: Pupils [...] alert and oriented x3. LAB STUDIES: From [facility], March 18, 2018. CBC; WBC 7.4, hemoglobin 12.7, hematocrit 39.2, platelet count 174. BMP: Sodium 142, potassium 3.3, chloride 101, bicarb 34.7, BUN 12, creatinine 0.71, calcium 8.5, glucose 93. The patient had BNP of 16,271 on March 16, 2018, when she initially presented. It appears that cardiac enzymes are negative. Chest x-ray is reported to be showing pulmonary edema from [place], but no images were sent over with [...] John MD Date Trans: 03/19/2018 01:05 A/jerri [id number] Normal [facility] MAGNESIUM BLOODon 03-19-2018 Magnesium mass conc 1.8 mg/dL Low 1.9-2.7 [facility] Comment on above: Order Comment: Yes: Add to Previous draw if able Performed By: #### 3 7900, 07877, 96294, 72062 #### [facility] [address] [place] [address], [facility] POC GLUCOSE LABon 03-19-2018 Glucose mass conc 260 mg/dL High 70-100 [facility] Comment on above: Performed By: #### 5 6101, 38170 #### [facility] [address] [place] [address], [facility] Glucose mass conc 200 mg/dL High 70-100 [facility] Comment on above: Performed By: #### 5 6101, 59268 #### [facility] [address] [place] [address], [facility] Glucose mass conc 130 mg/dL High 70-100 [facility] Comment on above: Performed By: #### 3 5200, 37688, 42789, 16771 #### [facility] [address] [facility] [place] [address], [facility] Glucose mass conc 112 mg/dL High 70-100 [facility] Comment on above: Performed By: #### 3 5200, 08932, 87346, 20349 #### [facility] [address] [facility] [place], [place] [id number] [place] [address] PROTHROMBIN TIMEon 9 INR Coag RelTime (PPP) 1.19 {INR} High 0.91-1.16 Th e [facility] Comment on above: Order Comment: No: [...] CHEST 1995;[id number]. Performed By: #### 5 6101, 28325 #### [facility] [address] [employer] Prothrombin time (PT) Coag time (PPP) 15.1 s High 12.3-14.8 [facility] Comment on above: Order Comment: No: D o not add to previous draw Result Comment: ALL RESULTS MUST BE INTERPRETED WITH RESPECT TO BLOOD DRAWING ARTIFACT OR DILUTION ERROR OF ANTICOAGULANT AT THE TIME OF SAMPLING. Performed By: #### 5 6101, 96242 #### [facility] [address] [facility]. [address] APTTon 03-13-2018 aPTT Coag time (Bld) 52.4 s High 25.0-35.0 [facility] Comment on above: Order Comment: [...] OF HEPARIN. Performed By: #### 3 5200, 57530, 05492, 78357 #### [facility] [address] [place] [address], [facility] aPTT Coag time (Bld) 56.9 s High 25.0-35.0 [facility] Comment on above: Order Comment: [...] OF HEPARIN. Performed By: #### 3 5200, 49486, 18423, 58486 #### [facility] [address] [facility] [place] [address], [facility] aPTT Coag time (Bld) 53.6 s High 25.0-35.0 [facility] Comment on above: Order Comment: Yes: [...] OF HEPARIN. Performed By: #### 3 5200, 13584, 09885, 18644 #### [facility] [address] [place] [address], [facility] POC GLUCOSE LABon 03-13-2018 Glucose mass conc 140 mg/dL High 70-100 The [facility] Comment on above: Performed By: #### 3 5200, 78816, 41003, 14922 #### [facility] [address] [facility] [place] [address], [facility] Glucose mass conc 189 mg/dL High 70-100 [facility] Comment on above: Performed By: #### 3 5200, 96608, 84344, 31243 #### [facility] [address] [facility] [place] [address], [facility] Glucose mass conc 156 mg/dL High 70-100 [facility] Comment on above: Performed By: #### 3 5200, 00627, 13955, 10061 #### [facility] [address] [place] [address], [facility] UFH HEPARIN ASSAYon 03-13-19 19 UNFRACTIONATED HEPARIN 0.14 IU/mL Critically low 0.30-0.70 [facility] Comment on above: Order Comment: Yes: Add to Previous draw if able Result Comment: Kathy roxaban and Apixaban will interfere with the anti Xa assay used to monitor UFH and LMWH. Results called. Accurately read back by PEGGY ISAACS 1508 Performed By: #### 3 5200, 62976, 75592, 77301 #### [facility] [address] UNFRACTIONATED HEPARIN 0.18 IU/mL Low 0.30-0.70 Th e [facility] Comment on above: Order Comment: Yes: Add to Previous draw if able Result Comment: [place] roxaban and Apixaban will interfere with the anti Xa assay used to monitor UFH and LMWH. Performed By: #### 3 5200, 68672, 93256, 62018 #### [facility] [address] UNFRACTIONATED HEPARIN 0.18 IU/mL Low 0.30-0.70 Th e [facility] Comment on above: Result Comment: Kathy roxaban and Apixaban will interfere with the anti Xa assay used to monitor UFH and LMWH. ADDED PER PROTOCOL. Performed By: #### 3 5200, 40093, 99101, 24138 #### [facility] [address] [place] [address], [facility] APTTon 03-12-2018 aPTT Coag time (Bld) 49.2 s High 25.0-35.0 [facility] Comment on above: Order Comment: Yes: [...] THIS PURPOSE. Performed By: #### 3 5200, 60097, 45624, 51940 #### [facility] [address] [place] [address], [facility] aPTT Coag time (Bld) 59.2 s High 25.0-35.0 [facility] Comment on above: Order Comment: [...] OF HEPARIN. Performed By: #### 3 5200, 60781, 48038, 28366 #### [facility] [address] [facility] [address] aPTT Coag time (Bld) 43.7 s High 25.0-35.0 [facility] Comment on above: Order Comment: [...] THIS PURPOSE. Performed By: #### 3 5200, 51512, 78388, 68087 #### [facility] [address] BASIC METABOLIC PANELon 02-0 -2018 Calcium mass conc 8.9 mg/dL Normal 8.6-10.3 [facility] Comment on above: Order Comment: Yes: Add to Previous draw if able Performed By: #### 3 5200, 80557, 56943, 29888 #### [facility] [address] [place] [address], [place] Chloride molar conc 100 mmol/L Normal 98-107 [facility] Comment on above: Order Comment: Yes: Add to Previous draw if able Performed By: #### 3 5200, 26944, 44295, 17643 #### [facility] [address] [place] [address], [place] CO2 molar conc 28 mmol/L Normal 21-31 [facility] Comment on above: Order Comment: Yes: Add to Previous draw if able Performed By: #### 3 5200, 19299, 50730, 99596 #### [facility] [address] [place] [address], [facility] Creatinine mass conc 0.50 mg/dL Low 0.60-1.20 [facility] Comment on above: Order Comment: Yes: Add to Previous draw if able Performed By: #### 3 5200, 64694, 36077, 21563 #### [facility] [address] [place] [address], [place] GFR/1.73 sq M predicted among blacks MDRD vol rate/area (S/P/Bld) mL/min/{1.73_m2} Normal >60 The [facility] Comment on above: Order Comment: Yes: Add to Previous draw if able Result Comment: Calc ulation may not be valid for patients over 70 years Performed By: #### 3 5200, 02314, 07250, 27321 #### [facility] [address] [place] [address], [place] GFR/1.73 sq M predicted among non-blacks MDRD vol rate/area (S/P/Bld) mL/min/{1.73_m2} Normal >60 [facility] Comment on above: Order Comment: Yes: Add to Previous draw if able Result Comment: Calc ulation may not be valid for patients over 70 years Performed By: #### 3 5200, 49678, 10285, 64462 #### [facility] [address] [place] [address], [facility] Glucose mass conc 132 mg/dL High 70-100 [facility] Comment on above: Order Comment: Yes: Add to Previous draw if able Performed By: #### 3 5200, 25860, 48569, 75061 #### [facility] [address] [place] [address], [facility] Potassium molar conc 3.6 mmol/L Normal 3.5-5.1 [facility] Comment on above: Order Comment: Yes: Add to Previous draw if able Performed By: #### 3 5200, 58817, 77335, 27088 #### [facility] [address] [place] [address], [facility] Sodium molar conc 137 mmol/L Normal 136-145 [facility] Comment on above: Order Comment: Yes: Add to Previous draw if able Performed By: #### 3 5200, 10442, 98089, 18609 #### [facility] [address] [place] [address], [facility] Urea nitrogen mass conc 10 mg/dL Normal 7-25 T he [facility] Comment on above: Order Comment: Yes: Add to Previous draw if able Performed By: #### 3 5200, 66662, 42096, 34366 #### [facility] [address] [place] [address], [facility] CBC COMPLETE BLOOD COUNTon 0 - Erythrocyte distribution width Ratio (RBC) 16.1 % High 11.5-15.0 [facility] Comment on above: Order Comment: Yes: Add to Previous draw if able Performed By: #### 3 5200, 57098, 86427, 57356 #### [facility] [address] [place] [address], [facility] Hematocrit Volume Fraction (Bld) 39.3 % Normal 36.0-45.0 [facility] Comment on above: Order Comment: Yes: Add to Previous draw if able Performed By: #### 3 5200, 64514, 35682, 08072 #### [facility] [address] [place] [address], [facility] Hemoglobin mass conc (Bld) 12.4 g/dL Normal 12.0-15.0 [facility] Comment on above: Order Comment: Yes: Add to Previous draw if able Performed By: #### 3 5200, 70908, 39671, 62844 #### [facility] [address] [place] [address], [facility] MCH Entitic mass (RBC) 29.7 pg Normal 27.0-33.0 Th e [facility] Comment on above: Order Comment: Yes: Add to Previous draw if able Performed By: #### 3 5200, 09614, 55686, 36794 #### [facility] [address] MCHC mass conc (RBC) 31.6 g/dL Low 32.0-35.0 [facility] Comment on above: Order Comment: Yes: Add to Previous draw if able Performed By: #### 3 5200, 08674, 86681, 90194 #### [facility] [address] MCV Entitic volume (RBC) 94.0 fL Normal 82.0-98.0 [facility] Comment on above: Order Comment: Yes: Add to Previous draw if able Performed By: #### 3 5200, 46355, 31425, 75208 #### [facility] [address] [place] [address], [facility] Nucleated RBC/100 WBC Ratio (Bld) 0 % Normal 0-0 [facility] Comment on above: Order Comment: Yes: Add to Previous draw if able Performed By: #### 3 5200, 39146, 99010, 52417 #### [facility] [address] [place] [id number], [facility] PLAT CNT 185 10*3/uL Normal 150-400 [facility] Comment on above: Order Comment: Yes: Add to Previous draw if able Performed By: #### 3 5200, 48136, 68331, 31985 #### [facility] [address] [place] [address], [place] RBC #/vol (Bld) 4.18 10*6/uL Normal 3.80-5.00 [facility] Comment on above: Order Comment: Yes: Add to Previous draw if able Performed By: #### 3 5200, 76863, 67068, 71619 #### [facility] [address] [place] [address], [place] WBC #/vol (Bld) 6.85 10*3/uL Normal 4.00-10.60 [facility] Comment on above: Order Comment: Yes: Add to Previous draw if able Performed By: #### 3 5200, 24526, 88831, 36628 #### [facility] [address] [place] [address], [place] POC GLUCOSE LABon 03-12-2018 Glucose mass conc 135 mg/dL High 70-100 [facility] Comment on above: Performed By: #### 3 5200, 33650, 86350, 89356 #### [facility] [address] [place] [address], [place] Glucose mass conc 188 mg/dL High 70-100 [facility] Comment on above: Performed By: #### 3 5200, 91950, 13768, 63275 #### [facility] [address] [place] [address], [place] Glucose mass conc 130 mg/dL High 70-100 [facility] Comment on above: Performed By: #### 3 5200, 41368, 47486, 54671 #### [facility] [address] [place] [address], [place] Glucose mass conc 139 mg/dL High 70-100 [facility] Comment on above: Performed By: #### 3 5200, 12428, 22593, 72573 #### [facility] [address] [place] [address], [facility] UFH HEPARIN ASSAYon 03-12-19 19 UNFRACTIONATED HEPARIN 0.30 IU/mL Normal 0.30-0.70 Th e [facility] Comment on above: Order Comment: Yes: Add to Previous draw if able Result Comment: [place] roxaban and Apixaban will interfere with the anti Xa assay used to monitor UFH and LMWH. Performed By: #### 3 5200, 72261, 72204, 93101 #### [facility] [address] [place] [address], [facility] APTTon 03-11-2018 aPTT Coag time (Bld) 88.3 s Critically high 25.0-35.0 [facility] Comment on above: Order Comment: Yes: [...] OF HEPARIN. Performed By: #### 3 5200, 33158, 87959, 20860 #### [facility] [address] [place] [address], [facility] aPTT Coag time (Bld) 50.4 s High 25.0-35.0 [facility] Comment on above: Order Comment: No: [...] THIS PURPOSE. Performed By: #### 3 5200, 73289, 42932, 78362 #### [facility] [address] [place] [address], [facility] BASIC METABOLIC PANELon 02-0 Calcium mass conc 8.9 mg/dL Normal 8.6-10.3 [facility] Comment on above: Order Comment: No: D o not add to previous draw Performed By: #### 3 5200, 72818, 01671, 08212 #### [facility] [address] [place] [address], [facility] Chloride molar conc 101 mmol/L Normal 98-107 [facility] Comment on above: Order Comment: No: D o not add to previous draw Performed By: #### 3 5200, 74529, 31940, 94211 #### [facility] [address] [place] [address], [facility] CO2 molar conc 29 mmol/L Normal 21-31 [facility] Comment on above: Order Comment: No: D o not add to previous draw Performed By: #### 3 5200, 44888, 61161, 71476 #### [facility] [address] [place] [address], [facility] Creatinine mass conc 0.55 mg/dL Low 0.60-1.20 [facility] Comment on above: Order Comment: No: D o not add to previous draw Performed By: #### 3 5200, 90673, 05632, 56565 #### [facility] [address] [place] [address], [place] GFR/1.73 sq M predicted among blacks MDRD vol rate/area (S/P/Bld) mL/min/{1.73_m2} Normal >60 The [facility] Comment on above: Order Comment: No: D o not add to previous draw Result Comment: Calc ulation may not be valid for patients over 70 years Performed By: #### 3 5200, 55821, 38910, 45251 #### [facility] [address] [place] [address], [facility] GFR/1.73 sq M predicted among non-blacks MDRD vol rate/area (S/P/Bld) mL/min/{1.73_m2} Normal >60 [facility] Comment on above: Order Comment: No: D o not add to previous draw Result Comment: Calc ulation may not be valid for patients over 70 years Performed By: #### 3 5200, 39376, 69880, 98105 #### [facility] [address] [place] [address], [facility] Glucose mass conc 152 mg/dL High 70-100 [facility] Comment on above: Order Comment: No: D o not add to previous draw Performed By: #### 3 5200, 56771, 78062, 81444 #### [facility] [address] [place] [address], [facility] Potassium molar conc 3.7 mmol/L Normal 3.5-5.1 [facility] Comment on above: Order Comment: No: D o not add to previous draw Performed By: #### 3 5200, 30041, 26722, 13622 #### [facility] [address] [place] [address], [facility] Sodium molar conc 138 mmol/L Normal 136-145 [facility] Comment on above: Order Comment: No: D o not add to previous draw Performed By: #### 3 5200, 49436, 76483, 31007 #### [facility] [address] [place] [address], [facility] Urea nitrogen mass conc 12 mg/dL Normal 7-25 T he [facility] Comment on above: Order Comment: No: D o not add to previous draw Performed By: #### 3 5200, 33038, 30547, 11704 #### [facility] [address] [place] [address], [place] CBC W/DIFFon 03-11-2018 ABS BASOPHILS 0.1 10*3/uL Normal 0.0-0.2 [facility] Comment on above: Order Comment: No: D o not add to previous draw Performed By: #### 3 5200, 49698, 74701, 27578 #### [facility] [address] [place] [address], [facility] ABS IMM GRANS 0.0 10*3/uL Normal 0.0-0.2 [facility] Comment on above: Order Comment: No: D o not add to previous draw Performed By: #### 3 5200, 61144, 41266, 80968 #### [facility] [address] [facility] [place] [address], [facility] ABS NEUTROPHILS 4.7 10*3/uL Normal 1.6-7.6 [facility] Comment on above: Order Comment: No: D o not add to previous draw Performed By: #### 3 5200, 17566, 79479, 88547 #### [facility] [address] [facility] [place] [address], [facility] Basophils #/vol (Bld) 0.9 % Normal 0.0-1.0 [facility] Comment on above: Order Comment: No: D o not add to previous draw Performed By: #### 3 5200, 49953, 88852, 12377 #### [facility] [address] [facility] [place] [address], [facility] Eosinophils #/vol (Bld) 0.2 10*3/uL Normal 0.0-0.5 [facility] Comment on above: Order Comment: No: D o not add to previous draw Performed By: #### 3 5200, 08012, 40090, 67397 #### [facility] [address] [facility] [place] [address], [facility] Eosinophils/100 WBC (Bld) 2.4 % Normal 0.0-6.0 [facility] Comment on above: Order Comment: No: D o not add to previous draw Performed By: #### 3 5200, 02887, 67140, 91769 #### [facility] [address] Erythrocyte distribution width Ratio (RBC) 16.1 % High 11.5-15.0 [facility] Comment on above: Order Comment: No: D o not add to previous draw Performed By: #### 3 5200, 52156, 22587, 07236 #### [facility] [address] [place] [id number], [facility] Hematocrit Volume Fraction (Bld) 38.7 % Normal 36.0-45.0 [facility] Comment on above: Order Comment: No: D o not add to previous draw Performed By: #### 3 5200, 12684, 26811, 28398 #### [facility] [address] [place] [address], [facility] Hemoglobin mass conc (Bld) 12.5 g/dL Normal 12.0-15.0 [facility] Comment on above: Order Comment: No: D o not add to previous draw Performed By: #### 3 5200, 87878, 21541, 18379 #### [facility] [address] [place] [address], [facility] IMMATURE GRANS 0.6 % Normal 0.0-1.0 [facility] Comment on above: Order Comment: No: D o not add to previous draw Performed By: #### 3 5200, 93839, 18024, 10094 #### [facility] [address] [place] [address], [facility] Lymphocytes #/vol (Bld) 1.3 10*3/uL Normal 1.2-4.0 [facility] Comment on above: Order Comment: No: D o not add to previous draw Performed By: #### 3 5200, 40740, 23541, 56757 #### [facility] [address] [place] [address], [facility] Lymphocytes/100 WBC (Bld) 18.6 % Low 20.0-45.0 [facility] Comment on above: Order Comment: No: D o not add to previous draw Performed By: #### 3 5200, 10127, 21415, 41464 #### [facility] [address] MCH Entitic mass (RBC) 29.9 pg Normal 27.0-33.0 e [facility] Comment on above: Order Comment: No: D o not add to previous draw Performed By: #### 3 5200, 75828, 07822, 14555 #### [facility] [address] MCHC mass conc (RBC) 32.3 g/dL Normal 32.0-35.0 [facility] Comment on above: Order Comment: No: D o not add to previous draw Performed By: #### 3 5200, 71638, 23858, 08836 #### [facility] [address] MCV Entitic volume (RBC) 92.6 fL Normal 82.0-98.0 [facility] Comment on above: Order Comment: No: D o not add to previous draw Performed By: #### 3 5200, 66266, 53798, 64545 #### [facility] [address] [facility] [address] Monocytes #/vol (Bld) 0.5 10*3/uL Normal 0.1-1.0 e [facility] Comment on above: Order Comment: No: D o not add to previous draw Performed By: #### 3 5200, 83233, 12216, 65014 #### [facility] [address] MONOS 7.0 % Normal 5.0-12.0 [facility] Comment on above: Order Comment: No: D o not add to previous draw Performed By: #### 3 5200, 86776, 21992, 48364 #### [facility] [address] [place] [address], [facility] Neutrophils/100 WBC (Bld) 70.5 % Normal 40.0-72.0 [facility] Comment on above: Order Comment: No: D o not add to previous draw Performed By: #### 3 5200, 70574, 23126, 28682 #### [facility] [address] [place] [address], [facility] Nucleated RBC/100 WBC Ratio (Bld) 0 % Normal 0-0 [facility] Comment on above: Order Comment: No: D o not add to previous draw Performed By: #### 3 5200, 28967, 59328, 46284 #### [facility] [address] [place] [address], [facility] PLAT CNT 189 10*3/uL Normal 150-400 [facility] Comment on above: Order Comment: No: D o not add to previous draw Performed By: #### 3 5200, 69736, 39672, 82533 #### [facility] [address] [facility] [place] [address], [facility] RBC #/vol (Bld) 4.18 10*6/uL Normal 3.80-5.00 [facility] Comment on above: Order Comment: No: D o not add to previous draw Performed By: #### 3 5200, 74484, 34412, 29872 #### [facility] [address] [place] [address], [place] WBC #/vol (Bld) 6.71 10*3/uL Normal 4.00-10.60 [facility] Comment on above: Order Comment: No: D o not add to previous draw Performed By: #### 3 5200, 38117, 51910, 01737 #### [facility] [address] [place] [address], [facility] POC GLUCOSE LABon 03-11-2018 Glucose mass conc 128 mg/dL High 70-100 [facility] Comment on above: Performed By: #### 3 5200, 22666, 55722, 85017 #### [facility] [address] [facility] [place] [address], [facility] Glucose mass conc 100 mg/dL Normal 70-100 [facility] Comment on above: Performed By: #### 3 5200, 03802, 96300, 24949 #### [facility] [address] [facility] [place] [address], [facility] Glucose mass conc 158 mg/dL High 70-100 [facility] Comment on above: Performed By: #### 3 5200, 26256, 45832, 01034 #### [facility] [address] [facility]. [address] UFH HEPARIN ASSAYon 03-11-19 19 UNFRACTIONATED HEPARIN 0.35 IU/mL Normal 0.30-0.70 Th e [facility] Comment on above: Order Comment: Yes: Add to Previous draw if able Result Comment: [place] roxaban and Apixaban will interfere with the anti Xa assay used to monitor UFH and LMWH. RESULTS CHECKED AND CALLED. ACCURATELY READ BACK BY ANANYA GUERRA RN AT 15:51 CLINICAL SIGNIFICANCE OF THE PTT RESULT IS QUESTIONABLE IN THE PRESENCE OF HEPARIN. Performed By: #### 3 5200, 85375, 17482, 02785 #### [facility] [address] [facility]. [address] UNFRACTIONATED HEPARIN 0.28 IU/mL Low 0.30-0.70 Th e [facility] Comment on above: Result Comment: [place] roxaban and Apixaban will interfere with the anti Xa assay used to monitor UFH and LMWH. Performed By: #### 3 5200, 59828, 40052, 06589 #### [facility] [address] APTTon 03-10-2018 aPTT Coag time (Bld) 53.0 s High 25.0-35.0 [facility] Comment on above: Order Comment: No: [...] OF HEPARIN. Performed By: #### 3 5200, 51826, 17556, 59523 #### [facility] [address] aPTT Coag time (Bld) 47.7 s High 25.0-35.0 [facility] Comment on above: Order Comment: No: [...] THIS PURPOSE. Performed By: #### 3 5200, 33918, 45232, 83694 #### [facility] [address] [place] [address], [facility] aPTT Coag time (Bld) 68.2 s High 25.0-35.0 [facility] Comment on above: Order Comment: No: [...] THIS PURPOSE. Performed By: #### 3 5200, 90335, 90267, 40366 #### [facility] [address] [place] [place] [address] BASIC METABOLIC PANELon 02-0 3-2019 Calcium mass conc 8.7 mg/dL Normal 8.6-10.3 [facility] Comment on above: Order Comment: No: D o not add to previous draw Performed By: #### 3 5200, 95390, 57384, 67281 #### [facility] [address] [place] [address], [place] Chloride molar conc 100 mmol/L Normal 98-107 [facility] Comment on above: Order Comment: No: D o not add to previous draw Performed By: #### 3 5200, 57334, 97088, 49960 #### [facility] [address] [place] [address], [place] CO2 molar conc 28 mmol/L Normal 21-31 [facility] Comment on above: Order Comment: No: D o not add to previous draw Performed By: #### 3 5200, 88569, 15426, 74343 #### [facility] [address] [place] [address], [place] Creatinine mass conc 0.57 mg/dL Low 0.60-1.20 [facility] Comment on above: Order Comment: No: D o not add to previous draw Performed By: #### 3 5200, 61822, 96061, 34794 #### [facility] [address] [place] [address], [place] GFR/1.73 sq M predicted among blacks MDRD vol rate/area (S/P/Bld) mL/min/{1.73_m2} Normal >60 [facility] Comment on above: Order Comment: No: D o not add to previous draw Result Comment: Calc ulation may not be valid for patients over 70 years Performed By: #### 3 5200, 97793, 50535, 74114 #### [facility] [address] [place] [address], [place] GFR/1.73 sq M predicted among non-blacks MDRD vol rate/area (S/P/Bld) mL/min/{1.73_m2} Normal >60 [facility] Comment on above: Order Comment: No: D o not add to previous draw Result Comment: Calc ulation may not be valid for patients over 70 years Performed By: #### 3 5200, 72177, 08111, 57407 #### [facility] [address] [place] [address], [place] Glucose mass conc 141 mg/dL High 70-100 [facility] Comment on above: Order Comment: No: D o not add to previous draw Performed By: #### 3 5200, 06153, 56739, 03218 #### [facility] [address] [place] [address], [place] Potassium molar conc 4.0 mmol/L Normal 3.5-5.1 [facility] Comment on above: Order Comment: No: D o not add to previous draw Performed By: #### 3 5200, 49275, 48506, 18039 #### [facility] [address] [place] [address], [place] Sodium molar conc 136 mmol/L Normal 136-145 [facility] Comment on above: Order Comment: No: D o not add to previous draw Performed By: #### 3 5200, 64610, 94105, 90937 #### [facility] [address] [place] [address], [facility] Urea nitrogen mass conc 12 mg/dL Normal 7-25 T he [facility] Comment on above: Order Comment: No: D o not add to previous draw Performed By: #### 3 5200, 32520, 05270, 86364 #### [facility] [address] [place] [address], [place] CBC COMPLETE BLOOD COUNTon 0 - Erythrocyte distribution width Ratio (RBC) 16.1 % High 11.5-15.0 [facility] Comment on above: Order Comment: No: D o not add to previous draw Performed By: #### 3 5200, 84257, 38982, 05746 #### [facility] [address] [place] [address], [facility] Hematocrit Volume Fraction (Bld) 39.4 % Normal 36.0-45.0 [facility] Comment on above: Order Comment: No: D o not add to previous draw Performed By: #### 3 5200, 34773, 12636, 71982 #### [facility] [address] [place] [address], [facility] Hemoglobin mass conc (Bld) 12.9 g/dL Normal 12.0-15.0 [facility] Comment on above: Order Comment: No: D o not add to previous draw Performed By: #### 3 5200, 67272, 18386, 26698 #### [facility] [address] [place] [address], [facility] MCH Entitic mass (RBC) 30.0 pg Normal 27.0-33.0 Th e [facility] Comment on above: Order Comment: No: D o not add to previous draw Performed By: #### 3 5200, 13880, 82139, 52468 #### [facility] [address] [place] [id number], [facility] MCHC mass conc (RBC) 32.7 g/dL Normal 32.0-35.0 [facility] Comment on above: Order Comment: No: D o not add to previous draw Performed By: #### 3 5200, 14024, 93071, 07497 #### [facility] [address] [place] [address], [place] MCV Entitic volume (RBC) 91.6 fL Normal 82.0-98.0 [facility] Comment on above: Order Comment: No: D o not add to previous draw Performed By: #### 3 5200, 33805, 57612, 31731 #### [facility] [address] [place] [address], [place] Nucleated RBC/100 WBC Ratio (Bld) 0 % Normal 0-0 [facility] Comment on above: Order Comment: No: D o not add to previous draw Performed By: #### 3 5200, 29382, 99396, 13521 #### [facility] [address] [place] [address], [facility] PLAT CNT 200 10*3/uL Normal 150-400 [facility] Comment on above: Order Comment: No: D o not add to previous draw Performed By: #### 3 5200, 33916, 86684, 67811 #### [facility] [address] [place] [address], [facility] RBC #/vol (Bld) 4.30 10*6/uL Normal 3.80-5.00 [facility] Comment on above: Order Comment: No: D o not add to previous draw Performed By: #### 3 5200, 09050, 39889, 79019 #### [facility] [address] [place] [address], [facility] WBC #/vol (Bld) 7.21 10*3/uL Normal 4.00-10.60 [facility] Comment on above: Order Comment: No: D o not add to previous draw Performed By: #### 3 5200, 76018, 67099, 01280 #### [facility] [address] UFH HEPARIN ASSAYon 03-10-19 19 UNFRACTIONATED HEPARIN 0.33 IU/mL Normal 0.30-0.70 Th e [facility] Comment on above: Result Comment: [place] roxaban and Apixaban will interfere with the anti Xa assay used to monitor UFH and LMWH. UFH ADDED PER PROTOCOL Performed By: #### 3 5200, 56236, 27114, 47969 #### [facility] [address] [place] [address], [facility] UNFRACTIONATED HEPARIN 0.89 IU/mL High 0.30-0.70 Th e [facility] Comment on above: Order Comment: No: D o not add to previous draw Result Comment: [place] roxaban and Apixaban will interfere with the anti Xa assay used to monitor UFH and LMWH. Performed By: #### 3 5200, 64120, 92506, 41241 #### [facility] [address] [place] [address], [facility] APTTon 03-09-2018 aPTT Coag time (Bld) 67.5 s High 25.0-35.0 [facility] Comment on above: Order Comment: Yes: [...] HEPARIN. Performed By: #### 8 5123 #### [facility] [address] [place] [address], [facility] aPTT Coag time (Bld) 58.4 s High 25.0-35.0 [facility] Comment on above: Order Comment: Yes: [...] PURPOSE. Performed By: #### 8 5123 #### [facility] [address] [place] [address], [facility] aPTT Coag time (Bld) 89.8 s Critically high 25.0-35.0 [facility] Comment on above: Order Comment: Yes: [...] 14:02 Performed By: #### 8 5123 #### [facility] [address] [place] [address], [facility] aPTT Coag time (Bld) 80.2 s Critically high 25.0-35.0 [facility] Comment on above: Order Comment: Yes: [...] PURPOSE. Performed By: #### 8 5123 #### [facility] [address] [facility] [place] [address], [facility] aPTT Coag time (Bld) 47.3 s High 25.0-35.0 [facility] Comment on above: Order Comment: No: [...] THIS PURPOSE. Performed By: #### 5 6101, 49645 #### [facility] [address] [place] [address], [facility] BNP (B-TYPE NATRIURETIC PEPT ISSA)on 03-09-2018 Natriuretic peptide B mass conc (Bld) 596 pg/mL High 0-100 [facility] Comment on above: Order Comment: Yes: Add to Previous draw if able Result Comment: Give n the appropriate clinical setting a BNP result of >100 pg/mL indicates congestive heart failure. Performed By: #### 8 5123 #### [facility] [address] [facility] [address] CBC COMPLETE BLOOD COUNTon 0 - Erythrocyte distribution width Ratio (RBC) 16.1 % High 11.5-15.0 [facility] Comment on above: Order Comment: Yes: Add to Previous draw if able Performed By: #### 8 5123 #### [facility] [address] Hematocrit Volume Fraction (Bld) 42.2 % Normal 36.0-45.0 [facility] Comment on above: Order Comment: Yes: Add to Previous draw if able Performed By: #### 8 5123 #### [facility] [address] Hemoglobin mass conc (Bld) 13.7 g/dL Normal 12.0-15.0 [facility] Comment on above: Order Comment: Yes: Add to Previous draw if able Performed By: #### 8 5123 #### [facility] [address] [facility]. [address] MCH Entitic mass (RBC) 30.0 pg Normal 27.0-33.0 Th e [facility] Comment on above: Order Comment: Yes: Add to Previous draw if able Performed By: #### 8 5123 #### [facility] [address] [facility] [address] MCHC mass conc (RBC) 32.5 g/dL Normal 32.0-35.0 [facility] Comment on above: Order Comment: Yes: Add to Previous draw if able Performed By: #### 8 5123 #### [facility] [address] [place] [address], [facility] MCV Entitic volume (RBC) 92.5 fL Normal 82.0-98.0 [facility] Comment on above: Order Comment: Yes: Add to Previous draw if able Performed By: #### 8 5123 #### [facility] [address] Nucleated RBC/100 WBC Ratio (Bld) 0 % Normal 0-0 [facility] Comment on above: Order Comment: Yes: Add to Previous draw if able Performed By: #### 8 5123 #### [facility] [address] [place] [address], [facility] PLAT CNT 208 10*3/uL Normal 150-400 [facility] Comment on above: Order Comment: Yes: Add to Previous draw if able Performed By: #### 8 5123 #### [facility] [address] [place] [address], [facility] RBC #/vol (Bld) 4.56 10*6/uL Normal 3.80-5.00 [facility] Comment on above: Order Comment: Yes: Add to Previous draw if able Performed By: #### 8 5123 #### [facility] [address] [place] [address], [facility] WBC #/vol (Bld) 9.26 10*3/uL Normal 4.00-10.60 [facility] Comment on above: Order Comment: Yes: Add to Previous draw if able Performed By: #### 8 5123 #### [facility] [address] Erythrocyte distribution width Ratio (RBC) 15.9 % High 11.5-15.0 [facility] Comment on above: Order Comment: Yes: Add to Previous draw if able Performed By: #### 5 0608 #### [facility] [address] [place] [address], [facility] Hematocrit Volume Fraction (Bld) 38.2 % Normal 36.0-45.0 [facility] Comment on above: Order Comment: Yes: Add to Previous draw if able Performed By: #### 5 0608 #### [facility] [address] Hemoglobin mass conc (Bld) 12.4 g/dL Normal 12.0-15.0 [facility] Comment on above: Order Comment: Yes: Add to Previous draw if able Performed By: #### 5 0608 #### [facility] [address] [place] [id number], [facility] MCH Entitic mass (RBC) 29.5 pg Normal 27.0-33.0 Th e [facility] Comment on above: Order Comment: Yes: Add to Previous draw if able Performed By: #### 5 0608 #### [facility] [address] [facility] [place] [address], [facility] MCHC mass conc (RBC) 32.5 g/dL Normal 32.0-35.0 [facility] Comment on above: Order Comment: Yes: Add to Previous draw if able Performed By: #### 5 0608 #### [facility] [address] [facility] [address] MCV Entitic volume (RBC) 91.0 fL Normal 82.0-98.0 [facility] Comment on above: Order Comment: Yes: Add to Previous draw if able Performed By: #### 5 0608 #### [facility] [address] [facility] [place] [address], [facility] Nucleated RBC/100 WBC Ratio (Bld) 0 % Normal 0-0 [facility] Comment on above: Order Comment: Yes: Add to Previous draw if able Performed By: #### 5 0608 #### [facility] [address] [place] [address], [facility] PLAT CNT 193 10*3/uL Normal 150-400 [facility] Comment on above: Order Comment: Yes: Add to Previous draw if able Performed By: #### 5 0608 #### [facility] [address] [place] [address], [facility] RBC #/vol (Bld) 4.20 10*6/uL Normal 3.80-5.00 [facility] Comment on above: Order Comment: Yes: Add to Previous draw if able Performed By: #### 5 0608 #### [facility] [address] [place] [address], [facility] WBC #/vol (Bld) 8.57 10*3/uL Normal 4.00-10.60 [facility] Comment on above: Order Comment: Yes: Add to Previous draw if able Performed By: #### 5 0608 #### [facility] [address] [place] [address], [facility] ELECTROLYTE PANELon 03-09-19 19 Chloride molar conc 98 mmol/L Normal 98-107 [facility] Comment on above: Order Comment: Yes: Add to Previous draw if able Performed By: #### 3 5200, 98691, 50599, 42884 #### [facility] [address] [place] [address], [facility] CO2 molar conc 26 mmol/L Normal 21-31 [facility] Comment on above: Order Comment: Yes: Add to Previous draw if able Performed By: #### 3 5200, 58714, 97008, 53833 #### [facility] [address] [place] [address], [facility] Potassium molar conc 4.0 mmol/L Normal 3.5-5.1 [facility] Comment on above: Order Comment: Yes: Add to Previous draw if able Performed By: #### 3 5200, 01842, 64034, 64692 #### [facility] [address] [place] [address], [facility] Sodium molar conc 135 mmol/L Low 136-145 [facility] Comment on above: Order Comment: Yes: Add to Previous draw if able Performed By: #### 3 5200, 94691, 85816, 96340 #### [facility] [address] [place] [address], [facility] MAGNESIUM BLOODon 03-09-2018 Magnesium mass conc 1.2 mg/dL Low 1.9-2.7 [facility] Comment on above: Order Comment: Yes: Add to Previous draw if able Performed By: #### 3 5200, 38355, 94314, 14165 #### [address] [address], [facility] PORTABLE CHEST 1 VIEWon PORTABLE CHEST 1 VIEW [facility] Department of Radiology [address] [place] [id number] Patient Name: PERCY KAPLAN : 1945 Sex: F Age: Race: White Pt. Location: [id number] Patient Status: I Ordered Date: 03/09/2018 2:15:00 [...] findings. Electronically signed by:Peña Díaz. Transcribed by: [email or web address], User Resident: BETH MILTON Electronically Signed by: PEÑA DÍAZ @ 03/09/2018 01:31 PM I personally read this/these film(s) with this resident Normal [facility] Comment on above: Order Comment: Yes: Add to Previous draw if able PROTHROMBIN TIMEon 9 INR Coag RelTime (PPP) 1.78 {INR} High 0.91-1.16 Th e [facility] Comment on above: Result Comment: ACCC [...] 1995;108:231S-246S. Performed By: #### 8 5123 #### [address] Prothrombin time (PT) Coag time (PPP) 20.8 s High 12.3-14.8 [facility] Comment on above: Result Comment: ALL RESULTS MUST BE INTERPRETED WITH RESPECT TO BLOOD DRAWING ARTIFACT OR DILUTION ERROR OF ANTICOAGULANT AT THE TIME OF SAMPLING. Performed By: #### 8 5123 #### [facility] [address] INR Coag RelTime (PPP) 2.82 {INR} High 0.91-1.16 Th e [facility] Comment on above: Order Comment: No: [...] CHEST 1995;108:231S-246S. Performed By: #### 5 6101, 14196 #### [facility] [address] Prothrombin time (PT) Coag time (PPP) 29.9 s High 12.3-14.8 [facility] Comment on above: Order Comment: No: D o not add to previous draw Result Comment: ALL RESULTS MUST BE INTERPRETED WITH RESPECT TO BLOOD DRAWING ARTIFACT OR DILUTION ERROR OF ANTICOAGULANT AT THE TIME OF SAMPLING. Performed By: #### 5 6101, 12115 #### [facility] [address] [place] [address], [facility] TROPONIN-Ion 03-09-2018 Troponin I.cardiac mass conc 0.01 ng/mL Normal 0.00-0.04 [facility] Comment on above: Order Comment: No: D o not add to previous draw Result Comment: REFE RENCE RANGES: 0.00 - 0.04 ng/ml NORMAL 0.05 - 0.50 ng/ml INDETERMINATE > 0.50 ng/ml CONSISTENT WITH AN M.I. Performed By: #### 3 5200 #### [facility] [address] [facility] [place] [address], [facility] Troponin I.cardiac mass conc 0.01 ng/mL Normal 0.00-0.04 [facility] Comment on above: Order Comment: No: D o not add to previous draw Result Comment: REFE RENCE RANGES: 0.00 - 0.04 ng/ml NORMAL 0.05 - 0.50 ng/ml INDETERMINATE > 0.50 ng/ml CONSISTENT WITH AN M.I. Performed By: #### 3 5200 #### [facility] [address] [place] [address], [facility] Troponin I.cardiac mass conc 0.01 ng/mL Normal 0.00-0.04 [facility] Comment on above: Order Comment: No: D o not add to previous draw Result Comment: REFE RENCE RANGES: 0.00 - 0.04 ng/ml NORMAL 0.05 - 0.50 ng/ml INDETERMINATE > 0.50 ng/ml CONSISTENT WITH AN M.I. Performed By: #### 3 5200, 16675, 09494, 72736 #### [facility] [address] [facility] [place] [address], [place] TSH3on 03-09-2018 TSH 3RD GENERATION 3.21 uIU/mL Normal 0.34-5.60 [facility] Comment on above: Order Comment: Yes: Add to Previous draw if able Performed By: #### 3 5200, 85448, 13804, 48989 #### [facility] [address] [facility] [place] [address], [facility] UFH HEPARIN ASSAYon 03-09-19 19 UNFRACTIONATED HEPARIN >1.00 Critically high 0.30-0.7 0 [facility] Comment on above: Result Comment: [place] roxaban and Apixaban will interfere with the anti Xa assay used to monitor UFH and LMWH. Performed By: #### 8 5123 #### [facility] [address] UNFRACTIONATED HEPARIN >1.00 Critically high 0.30-0.7 0 [facility] Comment on above: Order Comment: Yes: Add to Previous draw if able Result Comment: [place] roxaban and Apixaban will interfere with the anti Xa assay used to monitor UFH and LMWH. UFH = 2.28. UFH MAY BE ELEVATED IN THE PRESENCE OF OTHER ANTI-XA INHIBITORS. Performed By: #### 8 5123 #### [facility] [address] UNFRACTIONATED HEPARIN >1.00 Critically high 0.30-0.7 0 [facility] Comment on above: Result Comment: Kathy [...] 2.62 Performed By: #### 8 5123 #### [facility] [address] Vital Signs Date Time Vital Sign Value Performing Clinician Leigh weiss 10-27-2022 12:14-040 Diastolic blood pressure 53 mm[Hg] MD Gumaro Ordonez Work Phone: [facility] 10-27-2022 12:14-040 Heart rate 73 /min MD Gumaro Ordonez Work Phone: [facility] 10-27-2022 12:14-0400 Respiratory rate 18 /min MD Gumaro Ordonez Work Phone: [facility] 10-27-2022 12:14-0400 SaO2% (BldA) [Mass fraction] 95 % MD Gumaro Ordonez Work Phone: [facility] 10-27-2022 12:14-0400 Systolic blood pressure 128 mm[Hg] MD Gumaro Ordonez Work Phone: [facility] 10-27-2022 10:54-0400 Body height 160.02 cm MD Gumaro Ordonez Work Phone: [facility] 10-27-2022 10:54-0400 Body weight 122.46 kg MD Gumaro Ordonez Work Phone: [facility] Encounters Encounter Date Encounter Type Care Provider Facility Start: 03-19-2023 End: 03-19-2023 ambulatory [facility] Start: 02-27-2023 ambulatory [facility] Start: 02-27-2023 ambulatory [facility] Start: 01-12-2023 End: 01-12-2023 ambulatory [facility] Start: 12-04-2022 End: 12-04-2022 ambulatory Joe Cosme Facility:[facility] Start: 12-04-2022 End: 12-04-2022 ambulatory MD Gumaro Ordonez Work Phone: [facility] Work Phone: Start: 12-04-2022 End: 12-04-2022 Patient encounter procedure MD Gumaro Ordonez Work Phone: [facility] Work Phone: Start: 11-14-2022 End: 11-14-2022 ambulatory [facility] Start: 10-27-2022 End: 10-27-2022 ambulatory Joe Cosme Facility:[facility] Start: 10-27-2022 End: 10-27-2022 Admission to same day surgery center MD Gumaro Ordonez Work Phone: [facility] Work Phone: Start: 10-18-2022 End: 10-18-2022 ambulatory [facility] Start: 10-12-2022 ambulatory Mikey NIELSON Facility:[facility] Start: 10-11-2022 End: 10-15-2022 ambulatory Mikey NIELSON Facility:CD:[id number] Start: 09-22-2022 End: [facility]: 07-17-2022 End: 07-17-2022 ambulatory [facility] Start: 05-01-2022 End: 05-02-[address] GUMARO ORDONEZ Facility:[facility] Start: 03-22-2022 End: 03-23-[address] GUMARO ORDONEZ Facility:[facility] Start: 10-31-2021 End: 11-01-[address] GUMARO ORDONEZ Facility:[facility] Start: 09-28-2021 End: 09-29-2021 ambulatory ROSA ROSA Facility:[facility] Start: 03-18-2018 End: 03-24-2018 Evaluation and management of inpatient HERNANDEZ Clari GABRIEL Facility:[facility] Start: 03-09-2018 End: 03-13-2018 Evaluation and management of inpatient STEPHANIE CYNTHIA-VEGAI Facility:[facility] Procedures Date Procedure Procedure Detail Performing Clinician Start: 12-04-2022 Capsule endoscopy MD Gumaro Ordonez Work Phone: Start: 10-27-2022 Esophagogastroduodenoscopy MD Gumaro villagran Work Phone: Start: 03-12-2018 [employer], Single NATA HOWE ALAMIClari [...] Date Care Activity Detail Author Start: 12-04-2022 [facility] Start: 10-27-2022 [facility] Patient Education Colon polyps H emorrhoids (DC) Diverticulosis (DC) Hiatal Hernia (DC) [facility] Work Phone: Payers Date Payer Category Payer Medicare [id number] 2022 Self-pay 1958 Medicare [id number] 1958 Unknown [id number] 1945 Unknown [id number] 2.16.8 [id number] 1945 Unknown [id number] 2.16.8 [id number] 1945 Unknown [id number] 2.16.84 [id number] 1945 Unknown [id number] 2.16.84 [id number] 1945 Unknown [id number] 2.16.84 [id number] 1945 Unknown [id number] 2.16.84 [id number] 1945 Unknown [id number] 2.16.8 [id number] Unknown Carmen OLIVEIRA/TIMO [id number] Unknown [id number] 2.16.8 [id number] Unknown [id number] 2.16.8 [id number] Social History Date Type Detail Facility Start: 10-27-2022 Tobacco smoking stat us NHIS Never smoked tobacco (finding) [facility] Start: 1945 Sex Assigned At Female F [facility] Goals Date Patient Goal Desired Activity /State Clinical Notes 09-29-2021 to 03-19-2023 Note Date & Type Note Facility 03-19-2023 Note [place] [facility] Subjective Percy Kaplan is a 77 [...] post TAVR in May 2018 at [facility]. This was using a 23 mm [...] She had a discussion with her primary treatment coordinator Dr. Burnett and they agreed that left [...] 02/12/2023 129 Potassium (more content not included)... [facility] 02-27-2023 Note ------ Attestation signed by [...] No hemodynamic complications noted. Rochelle Diane MD Plastics Technician - PGY5 [facility] 02-27-2023 Note Patient: Percy salazar Procedure Information Date/Time: 02/27/23 1015 Procedure: Cardioversion/defibrillation Location: [facility] HOLDING ROOM / [facility] (Cath) Providers: Jolene Carr MD Clinical information reviewed: Allergies Meds OB Status Physical Exam Airway Mallampati: III TM distance: >3 FB Neck ROM: full Cardiovascular Rhythm: regular Rate: normal Dental Pulmonary Abdominal Anesthesia Plan Additional Equipment Requests [facility] 01-12-2023 Note [place] [facility] Subjective Percy Kaplan is a 77 [...] post TAVR in May 2018 at [facility]. This was using a 23 mm [...] She had a discussion with her primary treatment coordinator Dr. Burnett and they agreed that left [...] Rfl: coenzyme Q-10 (more content not included)... [facility] 11-29-2022 Note I called and spoke t o patient. Explained the LAAO procedure, pre/post-procedure imaging, post-procedure medications, risks and benefits. She would like to proceed with the procedure. She is pending a video capsule study. Please schedule her for an appt with Dr. Carr for further discussion. [facility] 11-14-2022 Note [facility]TP CARDIOLOGY PROGR ESS [...] and she p (more content not included)... [facility] 11-14-2022 Note Patient here for 4 w [place] follow up GI visit. She underwent upper [...] All other systems reviewed and are negative. [facility] 10-18-2022 Note Patient [facility] for [facility] discharge for GI bleed. She takes Xarelto for afib, but this was stopped, along with aspirin. Chest tightness and SOB has resolved and she's feeling much better. Doing more walking throughout her house. Denies lightheadedness and falls. Review of Systems Musculoskeletal: Positive for muscle weakness. All other systems reviewed and are negative. [facility] 10-18-2022 Note [facility]TP CARDIOLOGY PROGR ESS [...] daily weights, I (more content not included)... [facility] 10-11-2022 Note i [facility] 09-22-2022 Note [place] [facility] Subjective Percy Kaplan is a 77 [...] post TAVR in May 2018 at [facility]. This was using a 23 mm [...] , Rfl: Recent (more content not included)... [facility] 07-17-2022 Note Patient here for 6 m o follow up PAF, aortic valve disorder, CHF, carotid artery stenosis, and hypertension. She [facility] 2022 at [facility] [facility]. Denies chest pain, SOB, palpitations, and bleeding on Eliquis. Had routine labs in April 2022. Review of Systems Respiratory: Positive for cough. Musculoskeletal: Positive for arthritis, back pain, joint pain, muscle weakness and myalgias. Neurological: Positive for loss of balance. All other systems reviewed and are negative. [facility] 07-17-2022 Note [facility]TP CARDIOLOGY PROGR ESS [...] provided. Patient verbal (more content not included)... [facility] 03-22-2022 Note PROCEDURE: XR ANKLE LT [...] [facility] No assessment information [facility] Work Phone: Summary Purpose Family History No Family History Records Found Relationship Condition Age at Onset Recorded Date/T oliver Not Specified Malignant neoplasm of pancreas Unknown father Malignant neoplasm of kidney Unknown Malignant neoplasm of liver Unknown Advance Directives No Advanced Directives Records Found Advance Directive Response Recorded Date/ Time Advance Directives No October 10:12am Hospital Course Note MR#: [id number] [facility] Pt. Name: Catherine Kaplanjudson Roque Admitted: [...] content not included)... Note MR#: [id number] [facility] Pt. Name: Percy Kaplan Admitted: [...] was no chest pain. She went to [facility], was found to have elevated BNP. [...] and content) DATE CREATED AUTHOR 03/26/[address] [facility] DATE CREATED AUTHOR AUTHOR'S ORGANIZ ATION 05/10/2022 [facility] DATE CREATED AUTHOR AUTHOR'S ORGANIZ ATION 11/08/2022 [facility] DATE CREATED AUTHOR AUTHOR'S ORGANIZ ATION 01/17/2023 [facility] DATE CREATED AUTHOR AUTHOR'S ORGANIZ ATION 03/21/2023 [facility] Care Teams (unrecognized sec tion and [...] BE BASED ON THE PRIMARY CLINICAL RECORDS. [facility] [employer] [facility]. provides no warranty or guarantee of the accuracy or completeness of information in this document.
[2023-03-23 12:02] LABS: Basophils Absolute Auto 0.1 10^3/uL (0.0-0.1); Basophils Percent Auto 0.9 % (0.2-2.0); Eosinophils Absolute Auto 0.1 10^3/uL (0.0-0.7); Eosinophils Percent Auto 1.7 % (0.9-7.0); Hematocrit 35.4 % (36.0-48.0); Hemoglobin 10.4 g/dL (12.0-16.0); Immature Granulocytes Abs Auto 0.02 10^3/uL (0.00-0.03); Immature Granulocytes Pct Auto 0.3 % (0.0-0.5); Lymphocytes Absolute Auto 1.1 10^3/uL (1.2-3.8); Mean Corpuscular HGB Conc 29.4 g/dL (29.9-35.2); Mean Corpuscular Hemoglobin 23.8 pg (26.7-34.0); Monocytes Absolute Auto 0.4 10^3/uL (0.3-0.8); Monocytes Percent Auto 6.8 % (1.7-12.0); Neutrophils Absolute Auto 4.6 10^3/uL (1.4-6.5); Neutrophils Percent Auto 72.3 % (43.0-75.0); Platelet Count 226 10^3/uL (150-450); Red Blood Count 4.37 10^6/uL (4.20-5.40); Red Cell Distribution Width 17.8 % (11.0-15.0); White Blood Count 6.4 10^3/uL (4.0-11.0)
[2023-03-23 13:18] LABS: Anion Gap 13.7; BUN Creatinine Ratio 28.7; Calcium 9.4 mg/dL (8.5-10.1); Chloride 96 mmol/L (98-107); Estimated GFR (African America 36 (>=60); Estimated GFR (Non-African Ame 30 (>=60); Glucose 314 mg/dL (74-106); Potassium 4.7 mmol/L (3.5-5.1); Sodium 133 mmol/L (136-145)
== END 2023-03-23 10:24 | disposition home or self-care (01) ==
PROVIDERS: PCP Family Medicine; Visit Provider Internal Medicine Interventional Cardiology
DX: I48.0 Paroxysmal atrial fibrillation (principal)
CPT/HCPCS: 36415; 80048; 85025

== ENCOUNTER 2023-04-09 13:08 | Outpatient (OUT) | payer MEDICARE, SELFPAY ==
--- OUTSIDE RECORDS SUMMARY | 2023-04-09 13:29 | XMS_ITS | CCD ---
Author Name Unknown Address [address] [place] [address] Organization [facility] Care Team Providers Care Yarn Dyer Name Role Phone STEPHANIE CARBALLO Referring Unavailable SELF, REFERRED Primary Care Unavailable RAGHAVENDRA PERRY Admitting Unavailable DAVID SIMMONS Attending Unavailable [place] Procedure Practitioner Unavailab OMEGA Ramirez Surgeon Unavailable [place] Procedure Practitioner Unavailab NATA Tinoco ABD Surgeon [...] NADERER, DR GUMARO Fernandes Primary Care Unavailable PONCE DE LEON, DR FABRICIO Novak Consulting Unavailable HIGHLANDER, ROSA Wadsworth Admitting Unavailable HIGHLANDER, ROSA Wadsworth Attending Unavailable HIGHLANDER, PETER D Consulting Unavailable Mikey NIELSON Attending Unavailable MD Joe Cosme Attending Provider MD Gumaro Ordonez Primary Care Provider [phone] Joe Cosme Attending Unavailable Gumaro Ordonez Primary Care Unavailable Joe Cosme Admitting Unavailable Joe Cosme Attending Unavailable Gumaro Ordonez Primary Care Unavailable Joe Cosme Admitting Unavailable MOUKARBEL, JOLENE Admitting Unavailable MOUKARBEL, JOLENE Attending Unavailable DEN BURNETT Attending Unavailable DEN BURNETT Attending Unavailable LILLY, JOLENE Attending Unavailable MOUKAZAKIA, JOLENE Referring Unavailable MOUKARBEL, JOLENE Referring Unavailable MOUKARBEL, JOLENE Referring Unavailable MOUKARBMAMIE, JOLENE Referring Unavailable MOUKARBMAMIE, JOLENE Referring Unavailable MARINELORE GUARDADO Referring Unavailable MOUKAZAKIA, JOLENE Referring Unavailable LORE HAWTHORNE Referring Unavailable MOUKAZAKIA, JOLENE Attending Unavailable DEN BURNETT Attending Unavailable MOUKAZAKIA, JOLENE Attending Unavailable Allergies Allergy Classification Reported Allergen(s) Allergy Type Date of Onset Reaction(s) Facility (3 sources) Sulfonamides (Antibiotic); Translations: [SULFA (SULFONAMIDE ANTIBIOTICS)] Drug allergy (disorder) 07-11-2013 [facility] Repository (1 source) Sulfonamides (Antibiotic) Drug allergy (disorder) 10-27-2022 [facility] Repository Medications Current Medications Medication [...] extended release oral tablet (1 source) Start: 09-22-2023 take 10 mEq by mouth once daily [...] disease (1 source) Atherosclerotic heart disease of [place] coronary artery without angina pectoris; Translations: [ATHSCL HEART DISEASE OF [place] CORONARY ARTERY W/O ANG PCTRS] Onset: 9 [...] hemorrhage, unspecified] Onset: 3 Heart valve disorders (5 sources) Rheumatic disorders of both mitral and aortic valves; Translations: [Presence of prosthetic heart valve] Onset: 9 Chronic Hypertension with complications and secondary hypertension (1 source) Hypertensive heart disease with heart failure; Translations: [HYPERTENSIVE HEART DISEASE WITH HEART FAILURE] Onset: 9 Chronic Osteoarthritis (1 source) Unspecified osteoarthritis, unspecified site; Translations: [UNSPECIFIED OSTEOARTHRITIS, UNSPECIFIED SITE] Onset: 9 Chronic Other aftercare (1 source) Other adjunct faculty for medical terminology (current) drug therapy; Translations: [OTH LINOTYPE MECHANIC CURRENT DRUG THERAPY] Onset: 3 Episodic Other aftercare (1 source) 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; Translations: [skilled nursing (current) use of anticoagulants] Onset: 3 Episodic [...] Test Name Value Interpretation Reference Range Facility 30on 03-29-2023 30 The patient is Moderately Stable - Low risk of patient condition declining or worsening The patient's goals for the shift include rest The clinical goals for the shift include stable vs, comfort Problem: Pain - Adult Goal: Verbalizes/displays adequate comfort level or baseline comfort level Outcome: Progressing Problem: Safety - Adult Goal: Free from fall injury Outcome: Progressing Flowsheets (Taken 03/29/2023 0800) Free from fall injury: Assess patient frequently for physical needs Identify cognitive and physical deficits and behaviors that affect risk of falls [place] fall precautions as indicated by assessment Educate patient/family on patient safety, including physical limitations Instruct patient to call for assistance with activity based on assessment Modify environment to reduce risk of injury Consider OT/PT consult to assist with strengthening/mobility Problem: Discharge Planning Goal: Discharge to home or other facility with appropriate resources Outcome: Progressing Problem: Chronic Conditions and Co-morbidities Goal: Patient's chronic conditions and co-morbidity symptoms are monitored and maintained or improved Outcome: Progressing [facility] DSon 03-29-2023 DS -- Attestation signed by Jolene Carr MD at 03/29/2023 9:30 PM I personally saw and examined the patient on the same date of service as the Non-Physician Provider Ila Bray NP. I discussed the findings and therapeutic plan with the Non-Physician Provider Ila Bray NP. I agree with the documentation, except for any edits/updates below. Teaching Physician's Revisions: none Admission Admitted 02/27/2023 for Persistent atrial fibrillation, implantation of SALVADOR occluder device/amulet. Discharge Diagnosis Persistent atrial fibrillation ([facility]) H/O GI bleeding DM type 2 Chronic Systolic heart failure [facility] 2 HTN with heart failure AO stenosis s/p TAVR Discharge Disposition- Good condition Home-Health Care [facility] [place] (06) Discharge Medications Your medication list CONTINUE taking these medications Instructions Last Dose Given Next Dose Due Alpha tocopherol 200 unit capsule Commonly known as: Vitamin E amiodarone 200 mg tablet Commonly known as: Pacerone Take 1 tablet (200 mg) by mouth in the morning. amitriptyline 25 mg tablet Commonly known as: Elavil aspirin 81 mg EC tablet atorvastatin 40 mg tablet Commonly known as: Lipitor calcium citrate-vitamin D3 315 mg-5 mcg (200 unit) tablet Commonly known as: Citracal+D carvedilol 6.25 mg tablet Commonly known as: Coreg Take 1 tablet (6.25 mg) by mouth with breakfast and with evening meal. coenzyme Q-10 100 mg capsule furosemide 40 mg tablet Commonly known as: Lasix levothyroxine 125 mcg capsule Commonly known as: Tirosint metFORMIN XR 500 mg 24 hr tablet Commonly known as: Glucophage-XR potassium chloride CR 10 mEq ER tablet Commonly known as: Klor-Con sertraline 50 mg tablet Commonly known as: Zoloft spironolactone 25 mg tablet Commonly known as: Aldactone Xarelto 20 mg tablet Generic drug: rivaroxaban Activity No driving for 24 No strenuous activity, lifting greater than 10 pounds for the next week. Gradually return to normal activity over the next week. Diet Continue on the same type of diet and foods as you were eating before your admission. Drink plenty of water. Allergies Sulfa (sulfonamide antibiotics) Hospital Course Mrs Kaplan presented to [facility] on 03/27/2021 for elective SALVADOR closure procedure with Dr Carr. She has a complex prior medical history including paroxysmal atrial fibrillation, who needs long-term anticoagulation therapy to reduce the risk of stroke given elevated [id number] score of 6 due to age, gender, hypertension, diabetes, and heart failure. she is not a good candidate for long-term anticoagulation due to history of gastrointestinal bleeding. Following evaluation in Cardiology Clinic, percutaneous SALVADOR closure procedure was recommended as an alternative to long-term anticoagulation. She was admitted to [facility] for observation. Tolerated procedure well, and no acute events overnight. TTE on 03/28/23 with noted possible RALPH device protruding into LA, therefore BRIGIDO was completed and reviewed by Dr Carr with 2 experts to confirm Amulet device remains in good position and no acute concerns or need for further invasive procedures/surgery were required. Pt was assessed at bedside this morning. No acute events overnight. Denied chest pain, SOB, orthopnea, fever, chills, ABD or back pain. Overall states she feels very well. Procedure - Conclusion INDICATION: The patient is a 77 y.o. female with complex prior medical history including Paroxysmal atrial fibrillation, who needs long-term anticoagulation therapy to reduce the risk of stroke given elevated [id number] score of 6 due to age, gender, hypertension, diabetes, and heart failure. she is not a good candidate for long-term anticoagulation due to history of gastrointestinal bleeding. Following evaluation in Cardiology Clinic, percutaneous SALVADOR closure procedure was recommended as an alternative to long-term anticoagulation. she had a shared decision making with Dr Burnett, and both agreed that SALVADOR closure is a good alternative for her. PROCEDURES: 1. Successful left atrial appendage closure using a 28 mm Amplatzer Amulet device performed under fluoroscopic and transesophageal echocardiography guidance. 2. Transseptal puncture performed under fluoroscopic and transesophageal echocardiography guidance. 3. Left atrial appendage angiogram. 4. Access into the right common femoral venous vein under ultrasound guidance. 5. Preclosure in the right common femoral vein. 03/29/23 TTE Left Ventricle: The left ventricle is normal size. Global left ventricular systolic function is normal. Left Atrium: Stable LAAO device visualized in the left atrium. The left atrium is severely enlarged. No obstruction for mitral valve flow. (more content not included)... [facility] POCT GLUCOSE METER UNSOLICIT ED RESULTSon 03-29-2023 Glucose [Mass/Vol] 262 mg/dL High 70-105 [facility] Comment on above: Order Comment: Waive d Testing in the ED is performed under the ED CLIA certificate #[id number]. Result Comment: [email or web address] Performed By: #### L [id number] ####[facility] (BEAKER)[address] [place] [address] Glucose [Mass/Vol] 228 mg/dL High 70-105 [facility] Comment on above: Order Comment: Waive d Testing in the ED is performed under the ED CLIA certificate #[id number]. Result Comment: asav [email or web address] Performed By: #### L [id number] #### [facility] ([facility]) [address] [place] [address] 30on 03-28-2023 30 The patient is Moderately Stable - Low risk of patient condition declining or worsening The patient's goals for the shift include comfort and rest The clinical goals for the shift include stable vs Over the shift, the patient did make progress toward her goals. [facility] 30 The patient is Moderately Stable - Low risk of patient condition declining or worsening The patient's goals for the shift include comfort The clinical goals for the shift include hemodynamically stable Problem: Pain - Adult Goal: Verbalizes/displays adequate comfort level or baseline comfort level Outcome: Progressing Problem: Safety - Adult Goal: Free from fall injury Outcome: Progressing Flowsheets (Taken 03/28/2023 0800) Free from fall injury: Assess patient frequently for physical needs Identify cognitive and physical deficits and behaviors that affect risk of falls [place] fall precautions as indicated by assessment Problem: Discharge Planning Goal: Discharge to home or other facility with appropriate resources Outcome: Progressing Problem: Chronic Conditions and Co-morbidities Goal: Patient's chronic conditions and co-morbidity symptoms are monitored and maintained or improved Outcome: Progressing [facility] 30 The patient is Moderately Stable - Low risk of patient condition declining or worsening The patient's goals for the shift include comfort and rest The clinical goals for the shift include stable VS Over the shift, the patient did make progress toward her goals. [facility] ANESon 03-28-2023 ANES -- Attestation signed by Kayode Starr MD at 03/31/2023 12:34 PM By using the attestations below, the signing clinician agrees that I have read and verify that the documentation has been personally reviewed by me and ensure that the documentation accurately reflects the encounter. GC: I personally saw this patient on the day of the encounter, performed the monroy portion(s) of the service and participated in the management and confirm the resident's documentation. Please note there may be an additional personal documentation from me. 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 Use of blood products discussed with patient who. Plan discussed with attending. Additional Equipment Requests [facility] BASIC METABOLIC PANELon 03-09 Anion gap [Moles/Vol] 11 mmol/L Normal 7-20 [facility] Comment on above: Performed By: #### L [id number] #### [facility] ([facility]) [address] [place] [address] Calcium [Mass/Vol] 8.7 mg/dL Normal 8.6-10.3 [facility] Comment on above: Performed By: #### L [id number] #### [facility] ([facility]) [address] [facility] [place] [address] Chloride [Moles/Vol] 103 mmol/L Normal 98-107 [facility] Comment on above: Performed By: #### L [id number] #### [facility] ([facility]) [address] [place] [address] CO2 [Moles/Vol] 25 mmol/L Normal 21-[address] [facility] Comment on above: Performed By: #### L [id number] #### [facility] ([facility]) [address] [place] [address] Creatinine [Mass/Vol] 1.30 mg/dL High 0.60-1.20 [facility] Comment on above: Performed By: #### L [id number] #### [facility] ([facility]) [address] [facility] [place] [address] GLOMERULAR FILTRATION RATE ML/MIN/1.73 SQ M.PREDICTED 42.6 mL/min/1.73m*2 Low >60.0 [facility] Comment on above: Result Comment: [facility]???s estimated glomerular filtration rate (eGFR) will no longer include consideration of race in its calculation. The National Kidney Foundation???s eGFR Task Force developed new recommendations for the estimation of the glomerular filtration rate in the [place] They recommend immediate implementation of the new equation refit without the race variable in all laboratories because the calculation does not include race. In addition to not including race in the calculation and reporting, it included diversity in its development, and has acceptable performance characteristics and potential consequences that do not disproportionately affect any one group of individuals. Performed By: #### L [id number] #### [facility] [address] [place] [address] Glucose [Mass/Vol] 213 mg/dL High 70-100 [facility] Comment on above: Performed By: #### L [id number] #### [facility] ([facility]) [address] [place] [address] Potassium [Moles/Vol] 3.9 mmol/L Normal 3.5-5.1 [facility] Comment on above: Performed By: #### L [id number] #### [facility] ([facility]) [address] [place] [address] Sodium [Moles/Vol] 135 mmol/L Low 136-145 [facility] Comment on above: Performed By: #### L [id number] #### [facility] ([facility]) [address] [place] [address] Urea nitrogen [Mass/Vol] 34 mg/dL High 7-25 [facility] Comment on above: Performed By: #### L [id number] #### [facility] ([facility]) [address] [place] [address] UREA NITROGEN/CREATININE (MASS RATIO) IN SER/PLAS 26.2 [facility] Comment on above: Performed By: #### L [id number] #### [facility] ([facility]) [address] [place] [address] CBCon 03-28-2023 Erythrocyte distribution width (RBC) [Ratio] 17.9 % High 11.5-15.0 [facility] Comment on above: Performed By: #### L [id number] ####[facility] ([facility])[address] [place] [address] ERYTHROCYTE MEAN CORPUSCULAR HEMOGLOBIN CONCENTRATION (G/DL) BY AUTOMATED 31.5 g/dL Low 32.0-35.0 [facility] Comment on above: Performed By: #### L [id number] ####[facility] ([facility])[address] [place] [address] Hematocrit (Bld) [Volume fraction] 31.7 % Low 36.0-48.0 [facility] Comment on above: Performed By: #### L [id number] ####[facility] ([facility])[address] [place] [address] Hemoglobin (Bld) [Mass/Vol] 10.0 g/dL Low 12.0-15.0 [facility] Comment on above: Performed By: #### L [id number] ####[facility] ([facility])[address] [place] [address] MCH (RBC) [Entitic mass] 24.8 pg Low 27.0-33.0 [facility] Comment on above: Performed By: #### L [id number] ####[facility] ([facility])[address] [place] [address] MCV (RBC) [Entitic vol] 78.5 fL Low 82.0-98.0 [facility] Comment on above: Performed By: #### L [id number] ####[facility] ([facility])[address] [place] [address] PLATELETS (10*3/UL) IN BLOOD AUTOMATED COUNT 194 10*3/uL Normal 150-400 [facility] Comment on above: Performed By: #### L [id number] ####[facility] ([facility])[address] [place] [address] RBC (Bld) [#/Vol] 4.04 10*6/uL Normal 3.80-5.00 [facility] Comment on above: Performed By: #### L [id number] ####[facility] ([facility])[address] [place] [address] WBC (Bld) [#/Vol] 7.21 10*3/uL Normal 4.00-10.60 [facility] Comment on above: Performed By: #### L [id number] ####[facility] (BEAKER)[address] [place] [address] HPon 03-28-2023 HP -- Attestation signed by Kayode Starr MD at 03/31/2023 12:34 PM By using the attestations below, the signing clinician agrees that I have read and verify that the documentation has been personally reviewed by me and ensure that the documentation accurately reflects the encounter. GC: I personally saw this patient on the day of the encounter, performed the monroy portion(s) of the service and participated in the management and confirm the resident's documentation. Please note there may be an additional personal documentation from me. H&P reviewed. The patient was examined and there are no changes to the H&P. Patient is s/p SALVADOR closure using a Amplatzer Amulet 28 mm device yesterday. Will proceed with BRIGIDO to check device position. Procedure's details, risks and benefits discussed with the patient and she's agreeable. [facility] POCT GLUCOSE METER UNSOLICIT ED RESULTSon 03-28-2023 Glucose [Mass/Vol] 259 mg/dL High 70-105 [facility] Comment on above: Order Comment: Waive d Testing in the ED is performed under the ED CLIA certificate #[id number]. Result Comment: [email or web address] Performed By: #### L [id number] #### [facility] (BE[facility]) [address] [place] [address] Glucose [Mass/Vol] 306 mg/dL High 70-105 [facility] Comment on above: Order Comment: Waive d Testing in the ED is performed under the ED CLIA certificate #[id number]. Result Comment: [email or web address] Performed By: #### L [id number] #### [facility] ([facility]) [address] [place] [address] Glucose [Mass/Vol] 232 mg/dL High 70-105 [facility] Comment on above: Order Comment: Waive d Testing in the ED is performed under the ED CLIA certificate #[id number]. Result Comment: [email or web address] Performed By: #### L [id number] #### [facility] ([facility]) [address] [place] [address] Glucose [Mass/Vol] 245 mg/dL High 70-105 [facility] Comment on above: Order Comment: Waive d Testing in the ED is performed under the ED CLIA certificate #[id number]. Result Comment: [email or web address] Performed By: #### L [id number] #### [facility] ([facility]) [address] [place] [address] 30on 03-27-2023 30 The patient is Moderately Stable - Low risk of patient condition declining or worsening The patient's goals for the shift include comfort The clinical goals for the shift include monitor vitals Problem: Pain - Adult Goal: Verbalizes/displays adequate comfort level or baseline comfort level Outcome: Progressing Problem: Safety - Adult Goal: Free from fall injury Outcome: Progressing Flowsheets (Taken 03/27/2023 1353) Free from fall injury: Assess patient frequently for physical needs Identify cognitive and physical deficits and behaviors that affect risk of falls [place] fall precautions as indicated by assessment Educate patient/family on patient safety, including physical limitations Problem: Discharge Planning Goal: Discharge to home or other facility with appropriate resources Outcome: Progressing Problem: Chronic Conditions and Co-morbidities Goal: Patient's chronic conditions and co-morbidity symptoms are monitored and maintained or improved Outcome: Progressing [facility] HPon 03-27-2023 HP H&P reviewed. Hx of TAVR in May 2018 using a [place] HOLLIS 23 mm balloon expandable valve. Persistent atrial fibrillation with [id number] score of 6. Poor candidate for long-term anticoagulation due to history of gastrointestinal bleeding. Held Xarelto 2 days ago. The Watchman procedure and BRIGIDO procedure was explained to the patient. The risks and benefits of the procedure were explained to the patient who showed understanding and with full capacity elected to proceed with the procedure. All questions were addressed and answered. Rochelle Diane MD Principal Trainer - PGY5 [facility] MRSA/MSSA DNA NASALon 2023 MRSA DNA Negative Normal Negative [facility] Comment on above: Order Comment: Testi ng methodology is an automated qualitative in vitro diagnostic test for the directdetection and differentiation of Staphylococcus aureus (SA) DNA and methicillin-resistant Staphylococcus aureus (MRSA) DNA from nasal swabs in patients at risk for nasal colonization. The test utilizes real-time polymerase chain reaction (PCR) for the amplification of MRSA/SA DNA and fluorogenic target-specific hybridization probes for the detection of the amplified DNA. A negative result does not preclude nasal colonization. Performed By: #### L [id number] ####[place] [facility] (AKER)[address] [place] [address] MSSA DNA Negative Normal Negative [facility] Comment on above: Order Comment: Testi ng methodology is an automated qualitative in vitro diagnostic test for the directdetection and differentiation of Staphylococcus aureus (SA) DNA and methicillin-resistant Staphylococcus aureus (MRSA) DNA from nasal swabs in patients at risk for nasal colonization. The test utilizes real-time polymerase chain reaction (PCR) for the amplification of MRSA/SA DNA and fluorogenic target-specific hybridization probes for the detection of the amplified DNA. A negative result does not preclude nasal colonization. Performed By: #### L [id number] ####[facility] ([facility])[address] [place] [address] POCT GLUCOSE METER UNSOLICIT ED RESULTSon 03-27-2023 Glucose [Mass/Vol] 168 mg/dL High 70-105 [facility] Comment on above: Order Comment: Waive d Testing in the ED is performed under the ED CLIA certificate #[id number]. Result Comment: [email or web address] Performed By: #### L [id number] #### [facility] (BEAKER) [address] [facility] [place] [address] Glucose [Mass/Vol] 255 mg/dL High 70-105 [facility] Comment on above: Order Comment: Waive d Testing in the ED is performed under the ED CLIA certificate #[id number]. Result Comment: [email or web address] Performed By: #### L [id number] #### [facility] (BEAKER) [address] [facility] [place] [address] Glucose [Mass/Vol] 310 mg/dL High 70-105 [facility] Comment on above: Order Comment: Waive d Testing in the ED is performed under the ED CLIA certificate #[id number]. Result Comment: [email or web address] Performed By: #### L [id number] #### [facility] ([facility]) [address] [facility] [place] [address] TYPE AND SCREENon 03-27-2023 AB SCREEN Negative Normal [facility] Comment on above: Performed By: #### L [id number] #### [facility] , ABO group Nom (Bld) A Normal [facility] Comment on above: Performed By: #### L [id number] #### [facility] , RH TYPE IN BLOOD Positive Normal [facility] Comment on above: Performed By: #### L [id number] #### [facility] , HPon 03-19-[address] [facility] Cardiology [facility] Subjective Percy Kaplan is a 77 y.o. year old female patient being seen for follow up BRIGIDO/cardioversion. She is scheduled for LAAO insertion next week. Denies chest pain, SOB, palpitations, and lightheadedness/syncop e. Patient Active Problem List Diagnosis Persistent atrial [...] status post TAVR in May 2018 at [facility]. This was using a 23 mm [...] She had a discussion with her primary zanjero Dr. Burnett and they agreed that left [...] 02/12/2023 129 Potassium (more content not included)... Normal [facility] Office Visiton 03-19-2023 Follow-up visit [id number] Percy Kaplan 1945 F Date Provider Department Center 03/19/2023 Minal-JOLENE CARR [facility] Family History Problem Relation Age of Onset Aortic stenosis Father Other Father Family Status - Relation Status Age at Father Level of Service:39169 [place] OFFICE/OUTPATIENT ESTABLISHED HIGH MDM 40 MIN Normal [facility] Prep for Procedureon 024 Prep for Procedure [id number] Percy Kaplan 1945 F Date Provider Department Center 03/15/2023 LORE BOSE [facility] Family History Problem Relation Age of Onset Aortic stenosis Father Other Father Family Status - Relation Status Age at Father Normal [facility] HPon 02-27-2023 HP History Of Present [...] reduce the risk of stroke given elevated [id number] score of 6 due to age, gender, [...] a past medical history of Atrial fibrillation ([facility]), CHF (congestive heart failure) ([facility]), Diabetes mellitus ([facility]), Heart valve disease, Hypertension, PVD (peripheral vascular disease) ([facility]), and Sleep apnea. Surgical History [...] inferior infarct a (more content not included)... Normal [facility] NURSNOTEon 02-27-2023 NURSNOTE RN educated pt on d/ c instructions. RN encouraged pt to voice any questions or concerns. Pt verbalizes no questions or concerns at this time. Pt was wheeled off of unit with all of belongings. Normal [facility] NURSNOTE Bedside swallow stud y completed and passed. Normal [facility] Orders Onlyon 02-22-2023 Orders Only [id number] Percy Kaplan 1945 F Date Provider Department Center 02/22/2023 GABRIEL HARTLEY Family History Problem Relation Age of Onset Aortic stenosis Father Other Father Family Status - Relation Status Age at Father Normal [facility] Office Visiton 01-12-2023 Follow-up visit [id number] Percy Kaplan 1945 F Date Provider Department Center 01/12/2023 Minal-JOLENE CARR [facility] Family History Problem Relation Age of Onset Aortic stenosis Father Other Father Family Status - Relation Status Age at Father Level of Service:21493 [place] OFFICE/OUTPATIENT ESTABLISHED HIGH MDM 40-54 MIN Normal [facility] Office Visiton 11-14-2022 Follow-up visit [id number] Percy Kaplan Mya 1945 Provider Department Center 11/14/2022 3848-MARSHAVADIMFISH CHELITAErmelinda EDEN [facility] Family History Problem Relation Age of Onset Aortic stenosis Father Other Father Family Status - Relation Status Age at Father Level of Service:00107 [place] OFFICE/OUTPATIENT ESTABLISHED LOW MDM 20-29 MIN Normal [facility] Glucose Glucometer (BldC) [M ass/Vol]Ordered By: Joe Cosme on 10-27-2022 Glucose [Mass/Vol] 220 mg/dL [facility] Comment on above: Random Glucose Refer ence Range is dependent on time and content of last meal. Glucose of more than 200 mg/dL in a nonstressed, ambulatory subject supports the diagnosis of Diabetes Mellitus. Glucose Poct Glucometerson 0 10-27-2022 Commemt1 Glu2: Cleaned Meter Normal [facility] Comment on above: Result Comment: PERF ORMED BY: [facility] [address] [place] [address] PATHOLOGIST SPRINKLER HELPER NORMA MONTANA M.D. Performed By: #### G MELODIE #### Point of Care testing , Glucose [Mass/Vol] 220 mg/dL Normal [facility] Comment on above: Result Comment: [place] Glucose Reference Range is dependent on time and content of last meal. Glucose of more than 200 mg/dL in a nonstressed, ambulatory subject supports the diagnosis of Diabetes Mellitus. Performed By: #### G MELODIE #### Point of Care testing , Ryan 10-27-2022 L -- ---- Specimen: [id number] Received: 10/27/22 Status: TRAVIS Casas Num: [id number] Spec Type: Surgical Subm Dr: Joe Cosme MD Tissues: A Colon Biopsy (ASCND COL) Procedures: HE/2, Gross/Micro L4 ---- Age/ Patient Sex Location Account Attending Physician ---- Percy Kaplan 77/F [id number] Joe Cosme MD ---- SPEC NUM: [id number] RECD: 10/27/22 STATUS: TRAVIS CASAS NUM: [id number] DELMY: 10/27/22- [facility] DR: Joe Cosme MD ENTERED: 10/27/22 [facility] : SPEC TYPE: Surgical DEPT: S ENTERED BY: [id number] RECV BY: [id number] ORDERED: MILLA/2, Gross/Micro L4 ORDERED: HE/2, Gross/Micro L4 Pathological [...] microscopic examination confirms the diagnosis. CPT Codes 76567 ---- ---- Specimen: [id number] Received: 10/27/22 Status: TRAVIS Yessenia Num: [id number] Spec Type: Surgical Subm Dr: Joe Cosme MD Tissues: A Colon Biopsy (ASCND COL) Procedures: MILLA/Brayan, Gross/Micro L4 ---- Patient: Percy Kaplan [id number] (Continued) ---- Signed (signature on file) Akhsat-Ariel Dominguez MD 10/30/22 1331 Normal [facility] No Panel InformationOrdered By: Joe Cosme on 10-27-2022 Bedside Glucose Comment Glu2: cleaned meter [facility] Office Visiton 10-18-2022 Follow-up visit [id number] Percy Kaplan 1945 F Date Provider Department Center 10/18/2022 3848-DEN BURNETT CARD [facility] Family History Problem Relation Age of Onset Aortic stenosis Father Other Father Family Status - Relation Status Age at Father Level of Service:[address]11 [place] OFFICE/OUTPATIENT ESTABLISHED MOD MDM 30-39 MIN Normal [facility] Outside Colonoscopyon 2022 Outside Colonoscopy [id number]#1.00 CD:127 Normal [facility] Lab Reportson 10-16-2022 Lab Reports [id number]#1.0 0CD:127 Normal [facility] Lab Reports [id number]#1.0 0CD:127 Normal [facility] Lab Reports [id number]#1.00 CD:127 Normal [facility] Lab Reports [id number]#1.00 CD:127 Normal [facility] Outside Colonoscopyon 2022 Outside Colonoscopy [id number]#1.00 CD:127 Normal [facility] Consultation Noteon 10-13-19 Consultation Note [id number]#1.0 0CD:127 Normal [facility] Consultation Note [id number]#1.00 CD:127 Normal [facility] Lab Reportson 10-12-2022 Lab Reports [id number]#1.00 CD:127 Normal [facility] Office Visiton 09-22-2022 Follow-up visit [id number] Percy Kaplan 1945 F Date Provider Department Center 09/22/2022 367-JOLENE CARR EDEN [facility] Family History Problem Relation Age of Onset Aortic stenosis Father Other Father Family Status - Relation Status Age at Father Level of Service:82813 [place] OFFICE/OUTPATIENT ESTABLISHED MOD MDM 30-39 MIN Reason for Visit and Comments: Follow-up [481921] - Patient is here today per Dr burnett request Valve Disorder [3372] [facility] 36on 08-14-2022 36 Pt called in requesting a refill [facility] Office Visiton 07-17-2022 Follow-up visit [id number] Percy Kaplan 1945 F Date Provider Department Center 07/17/2022 3848-DEN BURNETT EDEN [facility] Family History Problem Relation Age of Onset Aortic stenosis Father Other Father Family Status - Relation Status Age at Father Level of Service:34651 [place] OFFICE/OUTPATIENT ESTABLISHED LOW MDM 20-29 MIN [facility] CBC AUTO DIFFon 05-01-2022 BASO # 0.1 103/ul Normal 0.0-0.1 [facility] Comment on above: Performed By: #### C BC ####[facility] [address] [place], [place] [address]Zj. Sugey Dominguez Basophils/100 WBC (Bld) 0.8 % Normal 0.2-2.0 [facility] Comment on above: Performed By: #### C BC ####[facility] [address] [place] [address]Dr. Sugey Dominguez EO # 0.2 103/ul Normal 0.0-0.7 [facility] Comment on above: Performed By: #### C BC ####[facility] [address] [place], [place] [address]Dr. Sugey Dominguez Eosinophils/100 WBC (Bld) 3.5 % Normal 0.9-7.0 [facility] Comment on above: Performed By: #### C BC ####[facility] [address] [place], [place] [address]Dr. Sugey Dominguez Erythrocyte distribution width (RBC) [Ratio] 13.6 % Normal 11.0-15.0 [facility] Comment on above: Performed By: #### C BC ####[facility] [address] [place], [place] [address]Dr. Sugey Dominguez Hematocrit (Bld) [Volume fraction] 40.7 % Normal 36.0-48.0 [facility] Comment on above: Performed By: #### C BC ####[facility] [address] [place], [place] [address]Dr. Sugey Dominguez Hemoglobin (Bld) [Mass/Vol] 13.5 g/dL Normal 12.0-16.0 [facility] Comment on above: Performed By: #### C BC ####[facility] [address] [place], [place] [address]Dr. Sugey Dominguez IG # 0.03 10e3/ul Normal 0.00-0.03 [facility] Comment on above: Performed By: #### C BC ####[facility] [address] [place], [place] [address]Dr. Sugey Dominguez IG % 0.5 % Normal 0.0-0.5 [facility] Comment on above: Performed By: #### C BC ####[facility] [address] [place], [place] [address]Dr. Sugey Dominguez LYMPH # 1.5 103/ul Normal 1.2-3.8 [facility] Comment on above: Performed By: #### C BC ####[facility] [address] [place] [address]Dr. Sugey Alberto Lymphocytes/100 WBC (Bld) 23.1 % Normal 20.5-60.0 [facility] Comment on above: Performed By: #### C BC ####[facility] [address] [place] [address]Dr. Mainecatherine Dominguez MANUAL DIFF REQ NO Normal [facility] Comment on above: Performed By: #### C BC ####[facility] [address] [place] [address]Dr. Sugey Alberto MCH (RBC) [Entitic mass] 30.8 pg Normal 26.7-34.0 [facility] Comment on above: Performed By: #### C BC ####[facility] [address] [place], [place] [address]Dr. Sugey Alberto MCHC (RBC) [Mass/Vol] 33.2 g/dL Normal 29.9-35.2 [facility] Comment on above: Performed By: #### C BC ####[facility] [address] [place], [place] [address]Dr. Mainecatherine Dominguez MCV (RBC) [Entitic vol] 92.7 fL Normal 81.0-99.0 [facility] Comment on above: Performed By: #### C BC ####[facility] [address] [place], [place] [address]Dr. Sugey Dominguez MONO # 0.4 103/ul Normal 0.3-0.8 [facility] Comment on above: Performed By: #### C BC ####[facility] [address] [place], [place] [address]Dr. Mainecatherine Dominguez Monocytes/100 WBC (Bld) 6.8 % Normal 1.7-12.0 [facility] Comment on above: Performed By: #### C BC ####[facility] [address] [place], [place] [address]Dr. Sugey Dominguez NEUT # 4.2 103/ul Normal 1.4-6.5 [facility] Comment on above: Performed By: #### C BC ####[facility] [address] [place] [address]Dr. Sugey Dominguez Neutrophils/100 WBC (Bld) 65.3 % Normal 43.0-75.0 [facility] Comment on above: Performed By: #### C BC ####[facility] [address] [place] [address]Dr. Sugey Dominguez Platelet mean volume (Bld) [Entitic vol] 10.1 fL Normal 9.5-13.5 [facility] Comment on above: Performed By: #### C BC ####[facility] [address] [place] [address]Dr. Sugey Dominguez PLT 166 103/ul Normal 150-450 [facility] Comment on above: Performed By: #### C BC ####[facility] [address] [place] [address]Dr. Sugey Dominguez RBC 4.39 106/ul Normal 4.20-5.40 [facility] Comment on above: Performed By: #### C BC ####[facility] [address] [place] [address]Dr. Sugey Dominguez WBC 6.4 103/ul Normal 4.0-11.0 [facility] Comment on above: Performed By: #### C BC ####[facility] [address] [place] [address]Dr. Sugey Dominguez FREE T3on 05-01-2022 FREE T3 1.80 pg/mlL Critically low 2.18-3.98 [facility] Comment on above: Performed By: #### L IPID, FT3, TSH, LIVER, BMP #### [facility] [address] [place] [address] [address] Sugey Dominguez FREE T4on 05-01-2022 Free T4 [Mass/Vol] 1.40 ng/dL Normal 0.76-1.46 [facility] Comment on above: Performed By: #### F T4 #### [facility] [address] [place] [address] [address] Sugey Dominguez GLYCOHEMOGLOBIN A1Con 2022 ADA RECOMMENDATION SEE BELOW Normal [facility] Comment on above: Result Comment: ADA RECOMMENDED LIMIT 4.0 - 6.0 ADA THERAPEUTIC TARGET < 7.0 ACTION SUGGESTED > 7.0 Performed By: #### A 1C #### [facility] [address] [place] [address] [address] Sugey Dominguez Glucose [Mass/Vol] 174 mg/dL Normal [facility] Comment on above: Performed By: #### A 1C #### [facility] [address] [place] [address] [address] Sugey Dominguez HbA1c (Bld) [Mass fraction] 7.7 % Critically high 4.5-6.2 [facility] Comment on above: Performed By: #### A 1C #### [facility] [address] [place] [address] Dr. Sugey Dominguez LIPID PROFILEon 05-01-2022 CHOL-HDL RATIO NORM SEE BELOW Normal [facility] Comment on above: Result Comment: 3.3 - 4.4 LOW RISK 4.4 - 7.1 AVERAGE RISK 7.1 - 11.0 MODERATE RISK >11.0 HIGH RISK Performed By: #### L IPID, FT3, TSH, LIVER, BMP #### [facility] [address] [address] [address] Sugey Dominguez Cholesterol [Mass/Vol] 176 mg/dL Normal <=200 [facility] Comment on above: Performed By: #### L IPID, FT3, TSH, LIVER, BMP #### [facility] [address] [place] [address] [address] Sugey Dominguez Cholesterol in HDL [Mass/Vol] 48 mg/dL Normal 40-60 [facility] Comment on above: Performed By: #### L IPID, FT3, TSH, LIVER, BMP #### [facility] [address] [place] [address] [address] Sugey Dominguez Cholesterol in LDL [Mass/Vol] 80.4 mg/dL Normal [facility] Comment on above: Performed By: #### L IPID, FT3, TSH, LIVER, BMP #### [facility] [address] [address] [address] Sugey Dominguez Cholesterol.total/Chol esterol in HDL [Mass ratio] 3.7 {ratio} Normal [facility] Comment on above: Performed By: #### L IPID, FT3, TSH, LIVER, BMP #### [facility] [address] [place] [address] [address] Sugey Dominguez HDL NORMAL > or = 60 mg/dl - LO W CARDIOVASCULAR RISK <40 mg/dl - HIGH CARDIOVASCULAR RISK Normal [facility] Comment on above: Performed By: #### L IPID, FT3, TSH, LIVER, BMP #### [facility] [address] [place] [address] [address] Sugey Dominguez LDL CALC NORMAL SEE BELOW Normal [facility] Comment on above: Result Comment: <100 mg/dl OPTIMAL 100 - 129 mg/dl NEAR OR ABOVE OPTIMAL 130 - 159 mg/dl BORDERLINE HIGH 160 - 189 mg/dl HIGH >190 mg/dl VERY HIGH Performed By: #### L IPID, FT3, TSH, LIVER, BMP #### [facility] [address] [place] [address] Dr. Sugey Dominguez Triglyceride [Mass/Vol] 238 mg/dL Critically high <=150 [facility] Comment on above: Performed By: #### L IPID, FT3, TSH, LIVER, BMP #### [facility] [address] [place] [address] [address] Sugey Dominguez VLDL CALC 47.6 mg/dL Normal [facility] Comment on above: Performed By: #### L IPID, FT3, TSH, LIVER, BMP #### [facility] [address] [place] [address] [address] Sugey Dominguez LIVER PROFILEon 05-01-2022 Albumin [Mass/Vol] 3.8 g/dL Normal 3.4-5.0 [facility] Comment on above: Performed By: #### L IPID, FT3, TSH, LIVER, BMP #### [facility] [address] [place] [address] Dr. Sugey Dominguez Albumin/Globulin [Mass ratio] 0.9 {ratio} Normal [facility] Comment on above: Performed By: #### L IPID, FT3, TSH, LIVER, BMP #### [facility] [address] [place] [address] Dr. Sugey Dominguez ALP [Catalytic activity/Vol] 81 U/L Normal 46-116 [facility] Comment on above: Performed By: #### L IPID, FT3, TSH, LIVER, BMP #### [facility] [address] [place] [address] [address] Sugey Dominguez ALT [Catalytic activity/Vol] 23 U/L Normal 14-59 [facility] Comment on above: Performed By: #### L IPID, FT3, TSH, LIVER, BMP #### [facility] [address] [place] [address] Dr. Sugey Dominguez AST [Catalytic activity/Vol] 15 U/L Normal 15-37 [facility] Comment on above: Performed By: #### L IPID, FT3, TSH, LIVER, BMP #### [facility] [address] [place] [address] Dr. Sugey Dominguez BILI, CONJUGATED 0.2 mg/dL Normal 0.0-0.2 [facility] Comment on above: Performed By: #### L IPID, FT3, TSH, LIVER, BMP #### [facility] [address] [place] [address] Dr. Sugey Dominguez Bilirubin [Mass/Vol] 0.6 mg/dL Normal 0.2-1.0 [facility] Comment on above: Performed By: #### L IPID, FT3, TSH, LIVER, BMP #### [facility] [address] [place] [address] Dr. Sugey Dominguez Globulin (S) [Mass/Vol] 4.0 g/dL Normal [facility] Comment on above: Performed By: #### L IPID, FT3, TSH, LIVER, BMP #### [facility] [address] [place] [address] Dr. Sugey Dominguez Protein [Mass/Vol] 7.8 g/dL Normal 6.4-8.2 [facility] Comment on above: Performed By: #### L IPID, FT3, TSH, LIVER, BMP #### [facility] [address] [place], [place] [id number] Dr. Sugey Dominguez MICROALBUMIN, RAND URon 03-2 mALB <1.3 Normal <=30.0 [facility] Comment on above: Performed By: #### M ALBR #### [facility] [address] [place] [address] Dr. Sugey Dominguez PROF CHEM 8 (BAS METB)on Anion gap [Moles/Vol] 12.9 mmol/L Normal [facility] Comment on above: Performed By: #### L IPID, FT3, TSH, LIVER, BMP #### [facility] [address] [place] [address] Dr. Sugey Dominguez Calcium [Mass/Vol] 9.6 mg/dL Normal 8.5-10.1 [facility] Comment on above: Performed By: #### L IPID, FT3, TSH, LIVER, BMP #### [facility] [address] [place] [address] Dr. Sugey Dominguez Chloride [Moles/Vol] 96 mmol/L Critically low 98-107 [facility] Comment on above: Performed By: #### L IPID, FT3, TSH, LIVER, BMP #### [facility] [address] [place] [address] Dr. Sugey Dominguez CO2 [Moles/Vol] 30.8 mmol/L Normal 21.0-32.0 [facility] Comment on above: Performed By: #### L IPID, FT3, TSH, LIVER, BMP #### [facility] [address] [place] [address] Dr. Sugey Dominguez Creatinine [Mass/Vol] 1.74 mg/dL Critically high 0.55-1.02 [facility] Comment on above: Performed By: #### L IPID, FT3, TSH, LIVER, BMP #### [facility] [address] [place] [address] Dr. Sugey Dominguez EGFR-AF CYMRAES 35 mL/min/1.73m2 Critically low >=60 [facility] Comment on above: Performed By: #### L IPID, FT3, TSH, LIVER, BMP #### [facility] [address] [place] [address] [address] Sugey Dominguez EGFR-NON AF CYMRAES 29 mL/min/1.73m2 Critically low >=60 [facility] Comment on above: Performed By: #### L IPID, FT3, TSH, LIVER, BMP #### [facility] [address] [place] [address] [address] Sugey Dominguez Glucose [Mass/Vol] 195 mg/dL Critically high 74-[address] [facility] Comment on above: Performed By: #### L IPID, FT3, TSH, LIVER, BMP #### [facility] [address] [address] [address] Sugey Dominguez Potassium [Moles/Vol] 4.7 mmol/L Normal 3.5-5.1 [facility] Comment on above: Performed By: #### L IPID, FT3, TSH, LIVER, BMP #### [facility] [address] [place] [address] Dr. Sugey Dominguez Sodium [Moles/Vol] 135 mmol/L Critically low 136-145 Th [facility] Comment on above: Performed By: #### L IPID, FT3, TSH, LIVER, BMP #### [facility] [address] [place] [address] Dr. Sugey Dominguez Urea nitrogen [Mass/Vol] 47.0 mg/dL Critically high 7.0-18.0 [facility] Comment on above: Performed By: #### L IPID, FT3, TSH, LIVER, BMP #### [facility] [address] [place] [address] Dr. Sugey Dominguez Urea nitrogen/Creatinine [Mass ratio] 27.0 mg/mg Normal [facility] Comment on above: Performed By: #### L IPID, FT3, TSH, LIVER, BMP #### [facility] [address] [place] [address] Dr. Sugey Dominguez TSHon 05-01-2022 TSH 4.093 uIU/mL Critically high 0.358-3.740 [facility] Comment on above: Performed By: #### L IPID, FT3, TSH, LIVER, BMP #### [facility] [address] [place], [place] [address] Dr. Sugey Dominguez GLYCOHEMOGLOBIN A1Con 2021 ADA RECOMMENDATION SEE BELOW Normal [facility] Comment on above: Result Comment: ADA RECOMMENDED LIMIT 4.0 - 6.0 ADA THERAPEUTIC TARGET < 7.0 ACTION SUGGESTED > 7.0 Performed By: #### A 1C ####[facility] [id number] [place] [id number] Dominguez Glucose [Mass/Vol] 183 mg/dL Normal [facility] Comment on above: Performed By: #### A 1C ####[facility] [id number] [place] [id number] Dominguez HbA1c (Bld) [Mass fraction] 8.0 % Critically high 4.5-6.2 [facility] Comment on above: Performed By: #### A 1C ####[facility] [address] [place] [id number]. Sugey Dominguez BASIC METABOLIC PANELon 03-08 Calcium mass conc 9.2 mg/dL Normal 8.6-10.3 [facility] Comment on above: Order Comment: No: D o not add to previous draw Performed By: #### 3 5200 #### [facility] [address] [place] [address], [place] Chloride molar conc 96 mmol/L Low 98-107 [facility] Comment on above: Order Comment: No: D o not add to previous draw Performed By: #### 3 5200 #### [facility] [address] [place] [address], [place] CO2 molar conc 27 mmol/L Normal 21-31 [facility] Comment on above: Order Comment: No: D o not add to previous draw Performed By: #### 3 5200 #### [facility] [address] [place] [address], [place] Creatinine mass conc 0.70 mg/dL Normal 0.60-1.20 [facility] Comment on above: Order Comment: No: D o not add to previous draw Performed By: #### 3 5200 #### [facility] [address] [place] [address], [place] GFR/1.73 sq M predicted among blacks MDRD vol rate/area (S/P/Bld) mL/min/{1.73_m2} Normal >60 [facility] Comment on above: Order Comment: No: D o not add to previous draw Result Comment: Calc ulation may not be valid for patients over 70 years Performed By: #### 3 5200 #### [facility] [address] [place] [address], [place] GFR/1.73 sq M predicted among non-blacks MDRD vol rate/area (S/P/Bld) mL/min/{1.73_m2} Normal >60 [facility] Comment on above: Order Comment: No: D o not add to previous draw Result Comment: Calc ulation may not be valid for patients over 70 years Performed By: #### 3 5200 #### [facility] [address] [place] [address], [place] Glucose mass conc 210 mg/dL High 70-100 [facility] Comment on above: Order Comment: No: D o not add to previous draw Performed By: #### 3 5200 #### [facility] [address] [place] [address], [place] Potassium molar conc 4.0 mmol/L Normal 3.5-5.1 [facility] Comment on above: Order Comment: No: D o not add to previous draw Performed By: #### 3 5200 #### [facility] [address] [place] [address], [place] Sodium molar conc 133 mmol/L Low 136-145 [facility] Comment on above: Order Comment: No: D o not add to previous draw Performed By: #### 3 5200 #### [facility] [address] Urea nitrogen mass conc 20 mg/dL Normal 7-25 [facility] Comment on above: Order Comment: No: D o not add to previous draw Performed By: #### 3 5200 #### [facility] [address] [place] [address], [facility] CBC W/DIFFon 03-24-2018 ABS BASOPHILS 0.1 10*3/uL Normal 0.0-0.2 [facility] Comment on above: Order Comment: No: D o not add to previous draw Performed By: #### 3 5200 #### [facility] [address] ABS IMM GRANS 0.1 10*3/uL Normal 0.0-0.2 [facility] Comment on above: Order Comment: No: D o not add to previous draw Performed By: #### 3 5200 #### [facility] [address] [facility]. [address] ABS NEUTROPHILS 4.7 10*3/uL Normal 1.6-7.6 [facility] Comment on above: Order Comment: No: D o not add to previous draw Performed By: #### 3 5200 #### [facility] [address] [facility]. [address] Basophils #/vol (Bld) 1.1 % High 0.0-1.0 [facility] Comment on above: Order Comment: No: D o not add to previous draw Performed By: #### 3 5200 #### [facility] [address] [facility] [place] [address], [facility] Eosinophils #/vol (Bld) 0.3 10*3/uL Normal 0.0-0.5 [facility] Comment on above: Order Comment: No: D o not add to previous draw Performed By: #### 3 5200 #### [facility] [address] [facility] [place] [address], [facility] Eosinophils/100 WBC (Bld) 3.3 % Normal 0.0-6.0 [facility] Comment on above: Order Comment: No: D o not add to previous draw Performed By: #### 3 5200 #### [facility] [address] [place] [address], [facility] Erythrocyte distribution width Ratio (RBC) 16.2 % High 11.5-15.0 [facility] Comment on above: Order Comment: No: D o not add to previous draw Performed By: #### 3 5200 #### [facility] [address] [place] [address], [facility] Hematocrit Volume Fraction (Bld) 42.5 % Normal 36.0-45.0 [facility] Comment on above: Order Comment: No: D o not add to previous draw Performed By: #### 3 5200 #### [facility] [address] [facility] [place] [address], [facility] Hemoglobin mass conc (Bld) 13.7 g/dL Normal 12.0-15.0 [facility] Comment on above: Order Comment: No: D o not add to previous draw Performed By: #### 3 5200 #### [facility] [address] [facility] [place] [address], [facility] IMMATURE GRANS 0.8 % Normal 0.0-1.0 [facility] Comment on above: Order Comment: No: D o not add to previous draw Performed By: #### 3 5200 #### [facility] [address] [facility] [place] [address], [facility] Lymphocytes #/vol (Bld) 1.7 10*3/uL Normal 1.2-4.0 [facility] Comment on above: Order Comment: No: D o not add to previous draw Performed By: #### 3 5200 #### [facility] [address] [place] [address], [facility] Lymphocytes/100 WBC (Bld) 22.1 % Normal 20.0-45.0 [facility] Comment on above: Order Comment: No: D o not add to previous draw Performed By: #### 3 5200 #### [facility] [address] [place] [address], [facility] MCH Entitic mass (RBC) 30.0 pg Normal 27.0-33.0 [facility] Comment on above: Order Comment: No: D o not add to previous draw Performed By: #### 3 5200 #### [facility] [address] [place] [address], [facility] MCHC mass conc (RBC) 32.2 g/dL Normal 32.0-35.0 [facility] Comment on above: Order Comment: No: D o not add to previous draw Performed By: #### 3 5200 #### [facility] [address] [place] [id number], [facility] MCV Entitic volume (RBC) 93.2 fL Normal 82.0-98.0 [facility] Comment on above: Order Comment: No: D o not add to previous draw Performed By: #### 3 5200 #### [facility] [address] [place] [address], [facility] Monocytes #/vol (Bld) 0.7 10*3/uL Normal 0.1-1.0 [facility] Comment on above: Order Comment: No: D o not add to previous draw Performed By: #### 3 5200 #### [facility] [address] [place] [address], [facility] MONOS 9.8 % Normal 5.0-12.0 [facility] Comment on above: Order Comment: No: D o not add to previous draw Performed By: #### 3 5200 #### [facility] [address] [place] [id number], [facility] Neutrophils/100 WBC (Bld) 62.9 % Normal 40.0-72.0 [facility] Comment on above: Order Comment: No: D o not add to previous draw Performed By: #### 3 5200 #### [facility] [address] [place] [address], [facility] Nucleated RBC/100 WBC Ratio (Bld) 0 % Normal 0-0 [facility] Comment on above: Order Comment: No: D o not add to previous draw Performed By: #### 3 5200 #### [facility] [address] [place] [address], [facility] PLAT CNT 188 10*3/uL Normal 150-400 [facility] Comment on above: Order Comment: No: D o not add to previous draw Performed By: #### 3 5200 #### [facility] [address] [place] [address], [facility] RBC #/vol (Bld) 4.56 10*6/uL Normal 3.80-5.00 [facility] Comment on above: Order Comment: No: D o not add to previous draw Performed By: #### 3 5200 #### [facility] [address] [place] [address], [facility] WBC #/vol (Bld) 7.48 10*3/uL Normal 4.00-10.60 [facility] Comment on above: Order Comment: No: D o not add to previous draw Performed By: #### 3 5200 #### [facility] [address] [place] [address], [facility] POC GLUCOSE LABon 03-24-2018 Glucose mass conc 241 mg/dL High 70-100 [facility] Comment on above: Performed By: #### 3 5200 #### [facility] [address] [place] [address], [facility] Glucose mass conc 189 mg/dL High 70-100 [facility] Comment on above: Performed By: #### 3 5200 #### [facility] [address] [place] [address], [facility] BASIC METABOLIC PANELon 03-08 Calcium mass conc 9.1 mg/dL Normal 8.6-10.3 [facility] Comment on above: Order Comment: No: D o not add to previous draw Performed By: #### 3 5200 #### [facility] [address] [place] [address], [place] Chloride molar conc 95 mmol/L Low 98-107 [facility] Comment on above: Order Comment: No: D o not add to previous draw Performed By: #### 3 5200 #### [facility] [address] [place] [address], [place] CO2 molar conc 32 mmol/L High 21-31 [facility] Comment on above: Order Comment: No: D o not add to previous draw Performed By: #### 3 5200 #### [facility] [address] [place] [address], [place] Creatinine mass conc 0.71 mg/dL Normal 0.60-1.20 [facility] Comment on above: Order Comment: No: D o not add to previous draw Performed By: #### 3 5200 #### [facility] [address] [place] [address], [place] GFR/1.73 sq M predicted among blacks MDRD vol rate/area (S/P/Bld) mL/min/{1.73_m2} Normal >60 [facility] Comment on above: Order Comment: No: D o not add to previous draw Result Comment: Calc ulation may not be valid for patients over 70 years Performed By: #### 3 5200 #### [facility] [address] [place] [address], [place] GFR/1.73 sq M predicted among non-blacks MDRD vol rate/area (S/P/Bld) mL/min/{1.73_m2} Normal >60 [facility] Comment on above: Order Comment: No: D o not add to previous draw Result Comment: Calc ulation may not be valid for patients over 70 years Performed By: #### 3 5200 #### [facility] [address] [place] [address], [place] Glucose mass conc 189 mg/dL High 70-100 [facility] Comment on above: Order Comment: No: D o not add to previous draw Performed By: #### 3 5200 #### [facility] [address] [place] [address], [place] Potassium molar conc 3.7 mmol/L Normal 3.5-5.1 [facility] Comment on above: Order Comment: No: D o not add to previous draw Performed By: #### 3 5200 #### [facility] [address] [place] [address], [place] Sodium molar conc 134 mmol/L Low 136-145 [facility] Comment on above: Order Comment: No: D o not add to previous draw Performed By: #### 3 5200 #### [facility] [address] [place] [address], [place] Urea nitrogen mass conc 19 mg/dL Normal 7-25 [facility] Comment on above: Order Comment: No: D o not add to previous draw Performed By: #### 3 5200 #### [facility] [address] [place] [address], [facility] CBC COMPLETE BLOOD COUNTon 0 - Erythrocyte distribution width Ratio (RBC) 16.2 % High 11.5-15.0 [facility] Comment on above: Order Comment: No: D o not add to previous draw Performed By: #### 3 5200 #### [facility] [address] [place] [address], [place] Hematocrit Volume Fraction (Bld) 42.5 % Normal 36.0-45.0 [facility] Comment on above: Order Comment: No: D o not add to previous draw Performed By: #### 3 5200 #### [facility] [address] [place] [address], [place] Hemoglobin mass conc (Bld) 13.6 g/dL Normal 12.0-15.0 [facility] Comment on above: Order Comment: No: D o not add to previous draw Performed By: #### 3 5200 #### [facility] [address] [place] [address], [facility] MCH Entitic mass (RBC) 29.9 pg Normal 27.0-33.0 [facility] Comment on above: Order Comment: No: D o not add to previous draw Performed By: #### 3 5200 #### [facility] [address] [place] [id number], [facility] MCHC mass conc (RBC) 32.0 g/dL Normal 32.0-35.0 [facility] Comment on above: Order Comment: No: D o not add to previous draw Performed By: #### 3 5200 #### [facility] [address] [place] [address], [facility] MCV Entitic volume (RBC) 93.4 fL Normal 82.0-98.0 [facility] Comment on above: Order Comment: No: D o not add to previous draw Performed By: #### 3 5200 #### [facility] [address] [place] [address], [facility] Nucleated RBC/100 WBC Ratio (Bld) 0 % Normal 0-0 [facility] Comment on above: Order Comment: No: D o not add to previous draw Performed By: #### 3 5200 #### [facility] [address] [place] [address], [facility] PLAT CNT 198 10*3/uL Normal 150-400 [facility] Comment on above: Order Comment: No: D o not add to previous draw Performed By: #### 3 5200 #### [facility] [address] [place] [id number], [facility] RBC #/vol (Bld) 4.55 10*6/uL Normal 3.80-5.00 [facility] Comment on above: Order Comment: No: D o not add to previous draw Performed By: #### 3 5200 #### [facility] [address] [place] [address], [facility] WBC #/vol (Bld) 7.49 10*3/uL Normal 4.00-10.60 [facility] Comment on above: Order Comment: No: D o not add to previous draw Performed By: #### 3 5200 #### [facility] [address] [place] [address], [facility] POC GLUCOSE LABon 03-23-2018 Glucose mass conc 178 mg/dL High 70-100 [facility] Comment on above: Performed By: #### 3 5200 #### [facility] [address] [place] [address], [place] Glucose mass conc 163 mg/dL High 70-100 [facility] Comment on above: Performed By: #### 3 5200 #### [facility] [address] [place] [address], [place] Glucose mass conc 194 mg/dL High 70-100 [facility] Comment on above: Performed By: #### 3 5200 #### [facility] [address] [place] [address], [place] Glucose mass conc 164 mg/dL High 70-100 [facility] Comment on above: Performed By: #### 3 5200 #### [facility] [address] [place] [address], [place] BASIC METABOLIC PANELon 03-08 Calcium mass conc 9.0 mg/dL Normal 8.6-10.3 [facility] Comment on above: Order Comment: No: D o not add to previous draw Performed By: #### 3 5200 #### [facility] [address] [place] [address], [place] Chloride molar conc 95 mmol/L Low 98-107 [facility] Comment on above: Order Comment: No: D o not add to previous draw Performed By: #### 3 5200 #### [facility] [address] [place] [address], [facility] CO2 molar conc 36 mmol/L High 21-31 [facility] Comment on above: Order Comment: No: D o not add to previous draw Performed By: #### 3 5200 #### [facility] [address] [place] [address], [facility] Creatinine mass conc 0.61 mg/dL Normal 0.60-1.20 [facility] Comment on above: Order Comment: No: D o not add to previous draw Performed By: #### 3 5200 #### [facility] [address] [place] [address], [facility] GFR/1.73 sq M predicted among blacks MDRD vol rate/area (S/P/Bld) mL/min/{1.73_m2} Normal >60 [facility] Comment on above: Order Comment: No: D o not add to previous draw Result Comment: Calc ulation may not be valid for patients over 70 years Performed By: #### 3 5200 #### [facility] [address] [place] [address], [facility] GFR/1.73 sq M predicted among non-blacks MDRD vol rate/area (S/P/Bld) mL/min/{1.73_m2} Normal >60 [facility] Comment on above: Order Comment: No: D o not add to previous draw Result Comment: Calc ulation may not be valid for patients over 70 years Performed By: #### 3 5200 #### [facility] [address] [place] [address], [place] Glucose mass conc 152 mg/dL High 70-100 [facility] Comment on above: Order Comment: No: D o not add to previous draw Performed By: #### 3 5200 #### [facility] [address] [place] [address], [facility] Potassium molar conc 3.5 mmol/L Normal 3.5-5.1 [facility] Comment on above: Order Comment: No: D o not add to previous draw Performed By: #### 3 5200 #### [facility] [address] [place] [address], [facility] Sodium molar conc 137 mmol/L Normal 136-145 [facility] Comment on above: Order Comment: No: D o not add to previous draw Performed By: #### 3 5200 #### [facility] [address] [place] [address], [facility] Urea nitrogen mass conc 17 mg/dL Normal 7-25 [facility] Comment on above: Order Comment: No: D o not add to previous draw Performed By: #### 3 5200 #### [facility] [address] CBC COMPLETE BLOOD COUNTon 0 - Erythrocyte distribution width Ratio (RBC) 16.2 % High 11.5-15.0 [facility] Comment on above: Order Comment: No: D o not add to previous draw Performed By: #### 3 5200 #### [facility] [address] [place] [address], [facility] Hematocrit Volume Fraction (Bld) 42.6 % Normal 36.0-45.0 [facility] Comment on above: Order Comment: No: D o not add to previous draw Performed By: #### 3 5200 #### [facility] [address] [place] [address], [facility] Hemoglobin mass conc (Bld) 13.4 g/dL Normal 12.0-15.0 [facility] Comment on above: Order Comment: No: D o not add to previous draw Performed By: #### 3 5200 #### [facility] [address] [place] [address], [facility] MCH Entitic mass (RBC) 29.4 pg Normal 27.0-33.0 [facility] Comment on above: Order Comment: No: D o not add to previous draw Performed By: #### 3 5200 #### [facility] [address] MCHC mass conc (RBC) 31.5 g/dL Low 32.0-35.0 [facility] Comment on above: Order Comment: No: D o not add to previous draw Performed By: #### 3 5200 #### [facility] [address] MCV Entitic volume (RBC) 93.4 fL Normal 82.0-98.0 [facility] Comment on above: Order Comment: No: D o not add to previous draw Performed By: #### 3 5200 #### [facility] [address] [facility] [facility] [address] Nucleated RBC/100 WBC Ratio (Bld) 0 % Normal 0-0 [facility] Comment on above: Order Comment: No: D o not add to previous draw Performed By: #### 3 5200 #### [facility] [address] [facility] [place] [address], [facility] PLAT CNT 197 10*3/uL Normal 150-400 [facility] Comment on above: Order Comment: No: D o not add to previous draw Performed By: #### 3 5200 #### [facility] [address] RBC #/vol (Bld) 4.56 10*6/uL Normal 3.80-5.00 [facility] Comment on above: Order Comment: No: D o not add to previous draw Performed By: #### 3 5200 #### [facility] [address] [place] [address], [facility] WBC #/vol (Bld) 7.53 10*3/uL Normal 4.00-10.60 [facility] Comment on above: Order Comment: No: D o not add to previous draw Performed By: #### 3 5200 #### [facility] [address] [place] [address], [place] POC GLUCOSE LABon 03-22-2018 Glucose mass conc 187 mg/dL High 70-100 [facility] Comment on above: Performed By: #### 3 5200 #### [facility] [address] [place] [address], [place] Glucose mass conc 161 mg/dL High 70-100 [facility] Comment on above: Performed By: #### 3 5200 #### [facility] [address] [place] [address], [place] Glucose mass conc 226 mg/dL High 70-100 [facility] Comment on above: Performed By: #### 3 5200 #### [facility] [address] [place] [address], [place] Glucose mass conc 175 mg/dL High 70-100 [facility] Comment on above: Performed By: #### 3 5200 #### [facility] [address] [place] [address], [place] Glucose mass conc 148 mg/dL High 70-100 [facility] Comment on above: Performed By: #### 3 5200 #### [facility] [address] [place] [address], [place] Glucose mass conc 191 mg/dL High 70-100 [facility] Comment on above: Performed By: #### 5 6101, 43110 #### [facility] [address] [place] [address], [place] BASIC METABOLIC PANELon 03-08 Calcium mass conc 9.1 mg/dL Normal 8.6-10.3 [facility] Comment on above: Order Comment: No: D o not add to previous draw Performed By: #### 5 6101, 87501 #### [facility] [address] [place] [address], [place] Chloride molar conc 95 mmol/L Low 98-107 [facility] Comment on above: Order Comment: No: D o not add to previous draw Performed By: #### 5 6101, 80187 #### [facility] [address] [place] [address], [place] CO2 molar conc 36 mmol/L High 21-31 [facility] Comment on above: Order Comment: No: D o not add to previous draw Performed By: #### 5 6101, 87237 #### [facility] [address] [place] [address], [place] Creatinine mass conc 0.68 mg/dL Normal 0.60-1.20 [facility] Comment on above: Order Comment: No: D o not add to previous draw Performed By: #### 5 6101, 06126 #### [facility] [address] [place] [address], [place] GFR/1.73 sq M predicted among blacks MDRD vol rate/area (S/P/Bld) mL/min/{1.73_m2} Normal >60 [facility] Comment on above: Order Comment: No: D o not add to previous draw Result Comment: Calc ulation may not be valid for patients over 70 years Performed By: #### 5 6101, 26000 #### [facility] [address] [place] [address], [place] GFR/1.73 sq M predicted among non-blacks MDRD vol rate/area (S/P/Bld) mL/min/{1.73_m2} Normal >60 [facility] Comment on above: Order Comment: No: D o not add to previous draw Result Comment: Calc ulation may not be valid for patients over 70 years Performed By: #### 5 6101, 12712 #### [facility] [address] [place] [address], [place] Glucose mass conc 147 mg/dL High 70-100 [facility] Comment on above: Order Comment: No: D o not add to previous draw Performed By: #### 5 610, 60748 #### [facility] [address] [place] [address], [facility] Potassium molar conc 3.6 mmol/L Normal 3.5-5.1 [facility] Comment on above: Order Comment: No: D o not add to previous draw Performed By: #### 5 610, 16254 #### [facility] [address] [place] [address], [facility] Sodium molar conc 139 mmol/L Normal 136-145 [facility] Comment on above: Order Comment: No: D o not add to previous draw Performed By: #### 5 610, 11592 #### [facility] [address] [place] [address], [facility] Urea nitrogen mass conc 14 mg/dL Normal 7-25 [facility] Comment on above: Order Comment: No: D o not add to previous draw Performed By: #### 5 610, 70597 #### [facility] [address] [place] [address], [facility] CBC COMPLETE BLOOD COUNTon - Erythrocyte distribution width Ratio (RBC) 16.2 % High 11.5-15.0 [facility] Comment on above: Order Comment: No: D o not add to previous draw Performed By: #### 5 610, 13818 #### [facility] [address] [place] [address], [facility] Hematocrit Volume Fraction (Bld) 42.0 % Normal 36.0-45.0 [facility] Comment on above: Order Comment: No: D o not add to previous draw Performed By: #### 5 610, 36242 #### [facility] [address] [place] [address], [place] Hemoglobin mass conc (Bld) 13.5 g/dL Normal 12.0-15.0 [facility] Comment on above: Order Comment: No: D o not add to previous draw Performed By: #### 5 6100, 00176 #### [facility] [address] MCH Entitic mass (RBC) 30.0 pg Normal 27.0-33.0 [facility] Comment on above: Order Comment: No: D o not add to previous draw Performed By: #### 5 6100, 63727 #### [facility] [address] MCHC mass conc (RBC) 32.1 g/dL Normal 32.0-35.0 [facility] Comment on above: Order Comment: No: D o not add to previous draw Performed By: #### 5 6100, 37776 #### [facility] [address] MCV Entitic volume (RBC) 93.3 fL Normal 82.0-98.0 [facility] Comment on above: Order Comment: No: D o not add to previous draw Performed By: #### 5 6100, 86642 #### [facility] [address] [facility]. [address] Nucleated RBC/100 WBC Ratio (Bld) 0 % Normal 0-0 [facility] Comment on above: Order Comment: No: D o not add to previous draw Performed By: #### 5 6100, 23549 #### [facility] [address] [facility]. [address] PLAT CNT 196 10*3/uL Normal 150-400 [facility] Comment on above: Order Comment: No: D o not add to previous draw Performed By: #### 5 610, 86896 #### [facility] [address] [facility]. [address] RBC #/vol (Bld) 4.50 10*6/uL Normal 3.80-5.00 [facility] Comment on above: Order Comment: No: D o not add to previous draw Performed By: #### 5 6100, 61670 #### [facility] [address] [place] [address], [facility] WBC #/vol (Bld) 7.89 10*3/uL Normal 4.00-10.60 [facility] Comment on above: Order Comment: No: D o not add to previous draw Performed By: #### 5 6100, 53384 #### [facility] [address] [place] [address], [facility] POC GLUCOSE LABon 03-21-2018 Glucose mass conc 174 mg/dL High 70-100 [facility] Comment on above: Performed By: #### 5 6100, 51628 #### [facility] [address] [place] [address], [facility] Glucose mass conc 129 mg/dL High 70-100 [facility] Comment on above: Performed By: #### 5 6100, 95962 #### [facility] [address] [place] [address], [facility] Glucose mass conc 280 mg/dL High 70-100 [facility] Comment on above: Performed By: #### 5 6100, 90790 #### [facility] [address] [place] [address], [facility] BASIC METABOLIC PANELon 03-08 Calcium mass conc 9.2 mg/dL Normal 8.6-10.3 [facility] Comment on above: Order Comment: No: D o not add to previous draw Performed By: #### 5 6100, 59724 #### [facility] [address] [place] [address], [place] Chloride molar conc 96 mmol/L Low 98-107 [facility] Comment on above: Order Comment: No: D o not add to previous draw Performed By: #### 5 610, 11283 #### [facility] [address] [place] [address], [place] CO2 molar conc 33 mmol/L High 21-31 [facility] Comment on above: Order Comment: No: D o not add to previous draw Performed By: #### 5 6101, 32126 #### [facility] [address] [place] [address], [facility] Creatinine mass conc 0.69 mg/dL Normal 0.60-1.20 [facility] Comment on above: Order Comment: No: D o not add to previous draw Performed By: #### 5 610, 37946 #### [facility] [address] [place] [address], [facility] GFR/1.73 sq M predicted among blacks MDRD vol rate/area (S/P/Bld) mL/min/{1.73_m2} Normal >60 [facility] Comment on above: Order Comment: No: D o not add to previous draw Result Comment: Calc ulation may not be valid for patients over 70 years Performed By: #### 5 610, 72944 #### [facility] [address] [place] [address], [facility] GFR/1.73 sq M predicted among non-blacks MDRD vol rate/area (S/P/Bld) mL/min/{1.73_m2} Normal >60 [facility] Comment on above: Order Comment: No: D o not add to previous draw Result Comment: Calc ulation may not be valid for patients over 70 years Performed By: #### 5 6101, 91888 #### [facility] [address] [place] [address], [place] Glucose mass conc 134 mg/dL High 70-100 [facility] Comment on above: Order Comment: No: D o not add to previous draw Performed By: #### 5 6101, 35030 #### [facility] [address] [place] [address], [place] Potassium molar conc 4.1 mmol/L Normal 3.5-5.1 [facility] Comment on above: Order Comment: No: D o not add to previous draw Performed By: #### 5 610, 02111 #### [facility] [address] [place] [address], [place] Sodium molar conc 137 mmol/L Normal 136-145 [facility] Comment on above: Order Comment: No: D o not add to previous draw Performed By: #### 5 6100, 30196 #### [facility] [address] [place] [address], [place] Urea nitrogen mass conc 13 mg/dL Normal 7-25 [facility] Comment on above: Order Comment: No: D o not add to previous draw Performed By: #### 5 6100, 93970 #### [facility] [address] [place] [address], [place] MAGNESIUM BLOODon 03-20-2018 Magnesium mass conc 1.9 mg/dL Normal 1.9-2.7 [facility] Comment on above: Order Comment: No: D o not add to previous draw Performed By: #### 5 6100, 62217 #### [facility] [address] [place] [address], [place] POC GLUCOSE LABon 03-20-2018 Glucose mass conc 109 mg/dL High 70-100 [facility] Comment on above: Performed By: #### 5 6100, 65976 #### [facility] [address] [place] [address], [place] Glucose mass conc 194 mg/dL High 70-100 [facility] Comment on above: Performed By: #### 5 610, 50426 #### [facility] [address] [place] [address], [place] Glucose mass conc 119 mg/dL High 70-100 [facility] Comment on above: Performed By: #### 5 610, 04501 #### [facility] [address] [place] [address], [place] Glucose mass conc 203 mg/dL High 70-100 [facility] Comment on above: Performed By: #### 5 610, 55869 #### [facility] [address] [place] [address], [facility] APTTon 03-19-2018 aPTT Coag time (Bld) 32.1 s Normal 25.0-35.0 [facility] Comment on above: Order Comment: No: [...] THIS PURPOSE. Performed By: #### 5 610, 30835 #### [facility] [address] BASIC METABOLIC PANELon 03-08 Calcium mass conc 9.2 mg/dL Normal 8.6-10.3 [facility] Comment on above: Order Comment: No: D o not add to previous draw Performed By: #### 5 6100, 78587 #### [facility] [address] [facility] [place] [address], [facility] Chloride molar conc 95 mmol/L Low 98-107 [facility] Comment on above: Order Comment: No: D o not add to previous draw Performed By: #### 5 6100, 46318 #### [facility] [address] [facility] [place] [address], [facility] CO2 molar conc 34 mmol/L High 21-31 [facility] Comment on above: Order Comment: No: D o not add to previous draw Performed By: #### 5 6100, 66824 #### [facility] [address] [facility] [address], [facility] Creatinine mass conc 0.55 mg/dL Low 0.60-1.20 [facility] Comment on above: Order Comment: No: D o not add to previous draw Performed By: #### 5 467, 67347 #### [facility] [address] [place] [address], [place] GFR/1.73 sq M predicted among blacks MDRD vol rate/area (S/P/Bld) mL/min/{1.73_m2} Normal >60 [facility] Comment on above: Order Comment: No: D o not add to previous draw Result Comment: Calc ulation may not be valid for patients over 70 years Performed By: #### 5 610, 82677 #### [facility] [address] [place] [address], [place] GFR/1.73 sq M predicted among non-blacks MDRD vol rate/area (S/P/Bld) mL/min/{1.73_m2} Normal >60 [facility] Comment on above: Order Comment: No: D o not add to previous draw Result Comment: Calc ulation may not be valid for patients over 70 years Performed By: #### 5 610, 83692 #### [facility] [address] [place] [address], [place] Glucose mass conc 136 mg/dL High 70-100 [facility] Comment on above: Order Comment: No: D o not add to previous draw Performed By: #### 5 610, 90807 #### [facility] [address] [place] [address], [place] Potassium molar conc 3.4 mmol/L Low 3.5-5.1 [facility] Comment on above: Order Comment: No: D o not add to previous draw Performed By: #### 5 610, 99648 #### [facility] [address] [place] [address], [place] Sodium molar conc 137 mmol/L Normal 136-145 [facility] Comment on above: Order Comment: No: D o not add to previous draw Performed By: #### 5 610, 24212 #### [facility] [address] [place] [address], [place] Urea nitrogen mass conc 11 mg/dL Normal 7-25 [facility] Comment on above: Order Comment: No: D o not add to previous draw Performed By: #### 5 610, 37719 #### [facility] [address] [facility] [address] CBC W/DIFFon 03-19-2018 ABS BASOPHILS 0.1 10*3/uL Normal 0.0-0.2 [facility] Comment on above: Order Comment: No: D o not add to previous draw Performed By: #### 5 610, 33047 #### [facility] [address] [facility]. [address] ABS IMM GRANS 0.1 10*3/uL Normal 0.0-0.2 [facility] Comment on above: Order Comment: No: D o not add to previous draw Performed By: #### 5 6100, 33341 #### [facility] [address] [facility]. [address] ABS NEUTROPHILS 6.1 10*3/uL Normal 1.6-7.6 [facility] Comment on above: Order Comment: No: D o not add to previous draw Performed By: #### 5 610, 93034 #### [facility] [address] [facility]. [address] Basophils #/vol (Bld) 0.8 % Normal 0.0-1.0 [facility] Comment on above: Order Comment: No: D o not add to previous draw Performed By: #### 5 610, 40522 #### [facility] [address] [facility] [address] Eosinophils #/vol (Bld) 0.2 10*3/uL Normal 0.0-0.5 [facility] Comment on above: Order Comment: No: D o not add to previous draw Performed By: #### 5 610, 42066 #### [facility] [address] Eosinophils/100 WBC (Bld) 1.9 % Normal 0.0-6.0 [facility] Comment on above: Order Comment: No: D o not add to previous draw Performed By: #### 5 6100, 34778 #### [facility] [address] Erythrocyte distribution width Ratio (RBC) 16.4 % High 11.5-15.0 [facility] Comment on above: Order Comment: No: D o not add to previous draw Performed By: #### 5 6100, 17420 #### [facility] [address] Hematocrit Volume Fraction (Bld) 43.7 % Normal 36.0-45.0 [facility] Comment on above: Order Comment: No: D o not add to previous draw Performed By: #### 5 6100, 49448 #### [facility] [address] Hemoglobin mass conc (Bld) 14.0 g/dL Normal 12.0-15.0 [facility] Comment on above: Order Comment: No: D o not add to previous draw Performed By: #### 5 6100, 63899 #### [facility] [address] [place] [address], [facility] IMMATURE GRANS 0.7 % Normal 0.0-1.0 [facility] Comment on above: Order Comment: No: D o not add to previous draw Performed By: #### 5 6100, 21542 #### [facility] [address] [place] [address], [facility] Lymphocytes #/vol (Bld) 1.7 10*3/uL Normal 1.2-4.0 [facility] Comment on above: Order Comment: No: D o not add to previous draw Performed By: #### 5 6100, 06317 #### [facility] [address] Lymphocytes/100 WBC (Bld) 19.1 % Low 20.0-45.0 [facility] Comment on above: Order Comment: No: D o not add to previous draw Performed By: #### 5 610, 24115 #### [facility] [address] [place] [address], [facility] MCH Entitic mass (RBC) 29.5 pg Normal 27.0-33.0 [facility] Comment on above: Order Comment: No: D o not add to previous draw Performed By: #### 5 6100, 34501 #### [facility] [address] MCHC mass conc (RBC) 32.0 g/dL Normal 32.0-35.0 [facility] Comment on above: Order Comment: No: D o not add to previous draw Performed By: #### 5 6100, 12389 #### [facility] [address] [facility] [address] MCV Entitic volume (RBC) 92.0 fL Normal 82.0-98.0 [facility] Comment on above: Order Comment: No: D o not add to previous draw Performed By: #### 5 6100, 99495 #### [facility] [address] [facility]. [address] Monocytes #/vol (Bld) 0.6 10*3/uL Normal 0.1-1.0 [facility] Comment on above: Order Comment: No: D o not add to previous draw Performed By: #### 5 6100, 05656 #### [facility] [address] [facility] [address], [facility] MONOS 7.0 % Normal 5.0-12.0 [facility] Comment on above: Order Comment: No: D o not add to previous draw Performed By: #### 5 6100, 03734 #### [facility] [address] [place] [address], [facility] Neutrophils/100 WBC (Bld) 70.5 % Normal 40.0-72.0 [facility] Comment on above: Order Comment: No: D o not add to previous draw Performed By: #### 5 6101, 38901 #### [facility] [address] [place] [address], [facility] Nucleated RBC/100 WBC Ratio (Bld) 0 % Normal 0-0 [facility] Comment on above: Order Comment: No: D o not add to previous draw Performed By: #### 5 6101, 87022 #### [facility] [address] [place] [address], [facility] PLAT CNT 200 10*3/uL Normal 150-400 [facility] Comment on above: Order Comment: No: D o not add to previous draw Performed By: #### 5 6101, 13009 #### [place] [address], [facility] RBC #/vol (Bld) 4.75 10*6/uL Normal 3.80-5.00 [facility] Comment on above: Order Comment: No: D o not add to previous draw Performed By: #### 5 6101, 44120 #### [facility] [address] [place] [address], [facility] WBC #/vol (Bld) 8.62 10*3/uL Normal 4.00-10.60 [facility] Comment on above: Order Comment: No: D o not add to previous draw Performed By: #### 5 6101, 35107 #### [address] CHEST AND LATERALon 03-19-19 19 CHEST AND LATERAL [facility] Department of Radiology [address] [place] [phone] ======== Patient Name: PERCY KAPLAN : 1945 Sex: F Age: Race: White Pt. Location: [address] [place] [address] Patient Status: I Ordered Date: 03/19/2018 12:15:00 AM Completed Date: 03/19/2018 05:56 AM Requesting Provider: JAGUAR JOHN Attending Provider: DAVID GABRIEL Report Copy To: Signs & Symptoms: Shortness of Breath History: Patient history not available Comments: R/O Cardiomegaly Exam: CHEST AND LATERAL ======== CHEST AND LATERAL 03/19/2018 5:56 AM EST [...] cardiomegaly. Electronically signed by:Franklyn Nicolas. Transcribed by: [email or web address], User Resident: Electronically Signed by: FRANKLYN NICOLAS @ 03/19/2018 08:20 AM Normal [facility] Comment on above: Order Comment: No: D o not add to previous draw COMP METABOLIC PANELon 03-19 Albumin mass conc 3.3 g/dL Low 3.5-5.7 [facility] Comment on above: Order Comment: No: D o not add to previous draw Performed By: #### 5 6101, 00572 #### [facility] [address] [place] [address], [place] ALKALINE PHOSPH 58 IU/L Normal 34-104 [facility] Comment on above: Order Comment: No: D o not add to previous draw Performed By: #### 5 610, 13555 #### [facility] [address] [place] [address], [place] ALT enzyme act/vol 28 U/L Normal 7-52 [facility] Comment on above: Order Comment: No: D o not add to previous draw Performed By: #### 5 610, 42824 #### [facility] [address] [place] [address], [place] AST enzyme act/vol 22 U/L Normal 13-39 [facility] Comment on above: Order Comment: No: D o not add to previous draw Performed By: #### 5 610, 41615 #### [facility] [address] [place] [address], [place] Bilirubin mass conc 1.9 mg/dL High 0.3-1.0 [facility] Comment on above: Order Comment: No: D o not add to previous draw Performed By: #### 5 610, 70796 #### [facility] [address] [place] [address], [place] Calcium mass conc 9.0 mg/dL Normal 8.6-10.3 [facility] Comment on above: Order Comment: No: D o not add to previous draw Performed By: #### 5 610, 87651 #### [facility] [address] [place] [address], [place] Chloride molar conc 94 mmol/L Low 98-107 [facility] Comment on above: Order Comment: No: D o not add to previous draw Performed By: #### 5 610, 10368 #### [facility] [address] [place] [address], [place] CO2 molar conc 36 mmol/L High 21-31 [facility] Comment on above: Order Comment: No: D o not add to previous draw Performed By: #### 5 610, 81641 #### [facility] [address] [place] [address], [facility] Creatinine mass conc 0.61 mg/dL Normal 0.60-1.20 [facility] Comment on above: Order Comment: No: D o not add to previous draw Performed By: #### 5 610, 19190 #### [facility] [address] [place] [address], [facility] GFR/1.73 sq M predicted among blacks MDRD vol rate/area (S/P/Bld) mL/min/{1.73_m2} Normal >60 [facility] Comment on above: Order Comment: No: D o not add to previous draw Result Comment: Calc ulation may not be valid for patients over 70 years Performed By: #### 5 610, 33353 #### [facility] [address] [place] [address], [facility] GFR/1.73 sq M predicted among non-blacks MDRD vol rate/area (S/P/Bld) mL/min/{1.73_m2} Normal >60 [facility] Comment on above: Order Comment: No: D o not add to previous draw Result Comment: Calc ulation may not be valid for patients over 70 years Performed By: #### 5 610, 11077 #### [facility] [address] [place] [address], [facility] Glucose mass conc 210 mg/dL High 70-100 [facility] Comment on above: Order Comment: No: D o not add to previous draw Performed By: #### 5 610, 69130 #### [facility] [address] [place] [address], [facility] Potassium molar conc 3.3 mmol/L Low 3.5-5.1 [facility] Comment on above: Order Comment: No: D o not add to previous draw Performed By: #### 5 610, 32887 #### [facility] [address] [place] [address], [place] Protein mass conc 6.3 g/dL Normal 6.0-8.3 [facility] Comment on above: Order Comment: No: D o not add to previous draw Performed By: #### 5 6101, 09189 #### [facility] [address] [place] [address], [place] Sodium molar conc 137 mmol/L Normal 136-145 [facility] Comment on above: Order Comment: No: D o not add to previous draw Performed By: #### 5 6101, 71382 #### [facility] [address] [place] [address], [facility] Urea nitrogen mass conc 11 mg/dL Normal 7-25 [facility] Comment on above: Order Comment: No: D o not add to previous draw Performed By: #### 5 6101, 43546 #### [facility] [address] [place] [id number], [facility] History and Physicalon 03-19 History and Physical MR#: [id number] [facility] Pt. 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 She was admitted to [facility] where she was found to be [...] service next week. Transfer was initiated from [place] for further evaluation from our Cardiology service and also due to concern at [place] whether she needed urgent valve replacement done [...] heart rate 73, respiratory rate 23, blood [id number]/88, pulse ox 99% 2L NC. EYES: Pupils [...] alert and oriented x3. LAB STUDIES: From [facility], March 18, 2018. CBC; WBC 7.4, hemoglobin 12.7, hematocrit 39.2, platelet count 174. BMP: Sodium 142, potassium 3.3, chloride 101, bicarb 34.7, BUN 12, creatinine 0.71, calcium 8.5, glucose 93. The patient had BNP of 16,271 on March 16, 2018, when she initially presented. It appears that cardiac enzymes are negative. Chest x-ray is reported to be showing pulmonary edema from [place], but no images were sent over with [...] John MD Date Trans: 03/19/2018 01:05 A/jerri [id number] Normal [facility] MAGNESIUM BLOODon 03-19-2018 Magnesium mass conc 1.8 mg/dL Low 1.9-2.7 [facility] Comment on above: Order Comment: Yes: Add to Previous draw if able Performed By: #### 3 8540, 80818, 18143, 72473 #### [facility] [address] [place] [address], [facility] POC GLUCOSE LABon 03-19-2018 Glucose mass conc 260 mg/dL High 70-100 [facility] Comment on above: Performed By: #### 5 6101, 13909 #### [facility] [address] [place] [address], [facility] Glucose mass conc 200 mg/dL High 70-100 [facility] Comment on above: Performed By: #### 5 6101, 04296 #### [facility] [address] [place] [address], [facility] Glucose mass conc 130 mg/dL High 70-100 [facility] Comment on above: Performed By: #### 3 5200, 42610, 69636, 54123 #### [facility] [address] [place] [address], [facility] Glucose mass conc 112 mg/dL High 70-100 [facility] Comment on above: Performed By: #### 3 5200, 42807, 36631, 97444 #### [facility] [address] PROTHROMBIN TIMEon 9 INR Coag RelTime (PPP) 1.19 {INR} High 0.91-1.16 [facility] Comment on above: Order Comment: No: D o not add to previous draw Result Comment: ACCC P RECOMMENDED INR FOR WARFARIN THERAPY --------- ------- CONDITION INR PROPHYLAXIS OF VENOUS THROMBOSIS 2-3 (HIGH-RISK SURGERY) TREATMENT OF VENOUS THROMBOSIS 2-3 TREATMENT OF PULMONARY EMBOLISM 2-3 PREVENTION OF SYSTEMIC EMBOLISM: 2-3 ACUTE MYOCARDIAL INFARCTION TISSUE HEART VALVES VALVULAR HEART DISEASE ATRIAL FIBRILLATION RECURRENT SYSTEMIC EMBOLISM MECHANICAL HEART VALVE 2.5-3.5 FROM: ORAL ANTICOAGULANTS. MECHANISM OF ACTION, CLINICAL EFFECTIVENESS, AND OPTIMAL THERAPEUTIC RANGE. CHEST 1995;108:231S-246S. Performed By: #### 5 6101, 41563 #### [facility] [address] Prothrombin time (PT) Coag time (PPP) 15.1 s High 12.3-14.8 [facility] Comment on above: Order Comment: No: D o not add to previous draw Result Comment: ALL RESULTS MUST BE INTERPRETED WITH RESPECT TO BLOOD DRAWING ARTIFACT OR DILUTION ERROR OF ANTICOAGULANT AT THE TIME OF SAMPLING. Performed By: #### 5 6101, 51954 #### [facility] [address] APTTon 03-13-2018 aPTT Coag time (Bld) 52.4 s High 25.0-35.0 [facility] Comment on above: Order Comment: [...] OF HEPARIN. Performed By: #### 3 5200, 38044, 93500, 75550 #### [facility] [address] [place] [address], [facility] aPTT Coag time (Bld) 56.9 s High 25.0-35.0 [facility] Comment on above: Order Comment: Yes: [...] OF HEPARIN. Performed By: #### 3 5200, 00090, 08197, 16870 #### [facility] [address] [place] [address], [facility] aPTT Coag time (Bld) 53.6 s High 25.0-35.0 [facility] Comment on above: Order Comment: Yes: [...] OF HEPARIN. Performed By: #### 3 5200, 80133, 45939, 98069 #### [facility] [address] [place] [address], [facility] POC GLUCOSE LABon 03-13-2018 Glucose mass conc 140 mg/dL High 70-100 [facility] Comment on above: Performed By: #### 3 5200, 46302, 65636, 90020 #### [facility] [address] [place] [address], [facility] Glucose mass conc 189 mg/dL High 70-100 [facility] Comment on above: Performed By: #### 3 5200, 70896, 44318, 11322 #### [facility] [address] [place] [address], [facility] Glucose mass conc 156 mg/dL High 70-100 [facility] Comment on above: Performed By: #### 3 5200, 77037, 72768, 09433 #### [facility] [address] UFH HEPARIN ASSAYon 03-13-19 19 UNFRACTIONATED HEPARIN 0.14 IU/mL Critically low 0.30-0.70 [facility] Comment on above: Order Comment: Yes: Add to Previous draw if able Result Comment: [place] roxaban and Apixaban will interfere with the anti Xa assay used to monitor UFH and LMWH. Results called. Accurately read back by PEGGY ISAACS 1508 Performed By: #### 3 5200, 26749, 34705, 07432 #### [facility] [address] UNFRACTIONATED HEPARIN 0.18 IU/mL Low 0.30-0.70 [facility] Comment on above: Order Comment: Yes: Add to Previous draw if able Result Comment: [place] roxaban and Apixaban will interfere with the anti Xa assay used to monitor UFH and LMWH. Performed By: #### 3 5200, 29050, 32142, 52543 #### [facility] [address] [facility] UNFRACTIONATED HEPARIN 0.18 IU/mL Low 0.30-0.70 Th [facility] Comment on above: Result Comment: [place] roxaban and Apixaban will interfere with the anti Xa assay used to monitor UFH and LMWH. ADDED PER PROTOCOL. Performed By: #### 3 5200, 69443, 53462, 83166 #### [facility] [address] [facility]. [address] APTTon 03-12-2018 aPTT Coag time (Bld) 49.2 s High 25.0-35.0 [facility] Comment on above: Order Comment: Yes: [...] THIS PURPOSE. Performed By: #### 3 5200, 25426, 77983, 97154 #### [facility] [address] [place] [address], [facility] aPTT Coag time (Bld) 59.2 s High 25.0-35.0 [facility] Comment on above: Order Comment: Yes: [...] OF HEPARIN. Performed By: #### 3 5200, 27210, 15190, 66485 #### [facility] [address] [place] [address], [facility] aPTT Coag time (Bld) 43.7 s High 25.0-35.0 [facility] Comment on above: Order Comment: Yes: [...] THIS PURPOSE. Performed By: #### 3 5200, 98585, 57922, 99147 #### [facility] [address] [place] [address], [facility] BASIC METABOLIC PANELon 02-0 Calcium mass conc 8.9 mg/dL Normal 8.6-10.3 [facility] Comment on above: Order Comment: Yes: Add to Previous draw if able Performed By: #### 3 5200, 74251, 05317, 59590 #### [facility] [address] [place] [address], [facility] Chloride molar conc 100 mmol/L Normal 98-107 [facility] Comment on above: Order Comment: Yes: Add to Previous draw if able Performed By: #### 3 5200, 34722, 04158, 09506 #### [facility] [address] [place] [address], [place] CO2 molar conc 28 mmol/L Normal 21-31 [facility] Comment on above: Order Comment: Yes: Add to Previous draw if able Performed By: #### 3 5200, 37226, 59495, 10378 #### [facility] [address] [place] [address], [place] Creatinine mass conc 0.50 mg/dL Low 0.60-1.20 [facility] Comment on above: Order Comment: Yes: Add to Previous draw if able Performed By: #### 3 5200, 24957, 49526, 51349 #### [facility] [address] [place] [address], [place] GFR/1.73 sq M predicted among blacks MDRD vol rate/area (S/P/Bld) mL/min/{1.73_m2} Normal >60 [facility] Comment on above: Order Comment: Yes: Add to Previous draw if able Result Comment: Calc ulation may not be valid for patients over 70 years Performed By: #### 3 5200, 45935, 70901, 95530 #### [facility] [address] [place] [address], [place] GFR/1.73 sq M predicted among non-blacks MDRD vol rate/area (S/P/Bld) mL/min/{1.73_m2} Normal >60 [facility] Comment on above: Order Comment: Yes: Add to Previous draw if able Result Comment: Calc ulation may not be valid for patients over 70 years Performed By: #### 3 5200, 54081, 46597, 89974 #### [facility] [address] [place] [address], [place] Glucose mass conc 132 mg/dL High 70-100 [facility] Comment on above: Order Comment: Yes: Add to Previous draw if able Performed By: #### 3 5200, 47203, 94525, 07018 #### [facility] [address] [place] [address], [facility] Potassium molar conc 3.6 mmol/L Normal 3.5-5.1 [facility] Comment on above: Order Comment: Yes: Add to Previous draw if able Performed By: #### 3 5200, 61504, 33633, 35468 #### [facility] [address] [place] [address], [facility] Sodium molar conc 137 mmol/L Normal 136-145 [facility] Comment on above: Order Comment: Yes: Add to Previous draw if able Performed By: #### 3 5200, 20768, 65497, 19291 #### [facility] [address] [place] [address], [facility] Urea nitrogen mass conc 10 mg/dL Normal 7-25 [facility] Comment on above: Order Comment: Yes: Add to Previous draw if able Performed By: #### 3 5200, 58619, 70158, 25053 #### [facility] [address] [place] [address], [facility] CBC COMPLETE BLOOD COUNTon 0 2- Erythrocyte distribution width Ratio (RBC) 16.1 % High 11.5-15.0 [facility] Comment on above: Order Comment: Yes: Add to Previous draw if able Performed By: #### 3 5200, 16685, 28736, 62550 #### [facility] [address] [place] [address], [place] Hematocrit Volume Fraction (Bld) 39.3 % Normal 36.0-45.0 [facility] Comment on above: Order Comment: Yes: Add to Previous draw if able Performed By: #### 3 5200, 57523, 94998, 09277 #### [facility] [address] [place] [address], [place] Hemoglobin mass conc (Bld) 12.4 g/dL Normal 12.0-15.0 [facility] Comment on above: Order Comment: Yes: Add to Previous draw if able Performed By: #### 3 5200, 81214, 40157, 21382 #### [facility] [address] [place] [address], [facility] MCH Entitic mass (RBC) 29.7 pg Normal 27.0-33.0 [facility] Comment on above: Order Comment: Yes: Add to Previous draw if able Performed By: #### 3 5200, 52176, 93268, 71761 #### [facility] [address] [place] [address], [facility] MCHC mass conc (RBC) 31.6 g/dL Low 32.0-35.0 [facility] Comment on above: Order Comment: Yes: Add to Previous draw if able Performed By: #### 3 5200, 82821, 43705, 65030 #### [facility] [address] [place] [address], [facility] MCV Entitic volume (RBC) 94.0 fL Normal 82.0-98.0 [facility] Comment on above: Order Comment: Yes: Add to Previous draw if able Performed By: #### 3 5200, 44757, 15956, 38845 #### [facility] [address] Nucleated RBC/100 WBC Ratio (Bld) 0 % Normal 0-0 [facility] Comment on above: Order Comment: Yes: Add to Previous draw if able Performed By: #### 3 5200, 93432, 31674, 20151 #### [facility] [address] [place] [id number], [facility] PLAT CNT 185 10*3/uL Normal 150-400 [facility] Comment on above: Order Comment: Yes: Add to Previous draw if able Performed By: #### 3 5200, 68955, 67907, 67847 #### [facility] [address] [place] [address], [facility] RBC #/vol (Bld) 4.18 10*6/uL Normal 3.80-5.00 [facility] Comment on above: Order Comment: Yes: Add to Previous draw if able Performed By: #### 3 5200, 45896, 07990, 50545 #### [facility] [address] [place] [address], [facility] WBC #/vol (Bld) 6.85 10*3/uL Normal 4.00-10.60 [facility] Comment on above: Order Comment: Yes: Add to Previous draw if able Performed By: #### 3 5200, 75494, 30744, 12405 #### [facility] [address] [place] [address], [facility] POC GLUCOSE LABon 03-12-2018 Glucose mass conc 135 mg/dL High 70-100 [facility] Comment on above: Performed By: #### 3 5200, 40841, 22771, 83976 #### [facility] [address] [place] [address], [place] Glucose mass conc 188 mg/dL High 70-100 [facility] Comment on above: Performed By: #### 3 5200, 64488, 51086, 23548 #### [facility] [address] [place] [address], [place] Glucose mass conc 130 mg/dL High 70-100 [facility] Comment on above: Performed By: #### 3 5200, 70216, 68999, 19800 #### [facility] [address] [place] [address], [place] Glucose mass conc 139 mg/dL High 70-100 [facility] Comment on above: Performed By: #### 3 5200, 80230, 84671, 75237 #### [facility] [address] [place] [address], [place] UFH HEPARIN ASSAYon 03-12-19 19 UNFRACTIONATED HEPARIN 0.30 IU/mL Normal 0.30-0.70 [facility] Comment on above: Order Comment: Yes: Add to Previous draw if able Result Comment: [place] roxaban and Apixaban will interfere with the anti Xa assay used to monitor UFH and LMWH. Performed By: #### 3 5200, 75533, 60982, 09138 #### [facility] [address] APTTon 03-11-2018 aPTT Coag time (Bld) 88.3 s Critically high 25.0-35.0 [facility] Comment on above: Order Comment: Yes: [...] OF HEPARIN. Performed By: #### 3 5200, 15388, 46671, 29815 #### [facility] [address] [facility] [place] [address], [facility] aPTT Coag time (Bld) 50.4 s High 25.0-35.0 [facility] Comment on above: Order Comment: No: [...] THIS PURPOSE. Performed By: #### 3 5200, 66827, 34278, 21858 #### [facility] [address] [place] [address], [facility] BASIC METABOLIC PANELon 02-0 Calcium mass conc 8.9 mg/dL Normal 8.6-10.3 [facility] Comment on above: Order Comment: No: D o not add to previous draw Performed By: #### 3 5200, 49909, 07667, 55118 #### [facility] [address] [place] [address], [place] Chloride molar conc 101 mmol/L Normal 98-107 [facility] Comment on above: Order Comment: No: D o not add to previous draw Performed By: #### 3 5200, 82524, 23641, 89255 #### [facility] [address] [place] [address], [place] CO2 molar conc 29 mmol/L Normal 21-31 [facility] Comment on above: Order Comment: No: D o not add to previous draw Performed By: #### 3 5200, 26149, 33571, 15166 #### [facility] [address] [place] [address], [place] Creatinine mass conc 0.55 mg/dL Low 0.60-1.20 [facility] Comment on above: Order Comment: No: D o not add to previous draw Performed By: #### 3 5200, 39931, 55801, 20417 #### [facility] [address] [place] [address], [place] GFR/1.73 sq M predicted among blacks MDRD vol rate/area (S/P/Bld) mL/min/{1.73_m2} Normal >60 [facility] Comment on above: Order Comment: No: D o not add to previous draw Result Comment: Calc ulation may not be valid for patients over 70 years Performed By: #### 3 5200, 08791, 17207, 53500 #### [facility] [address] [place] [address], [place] GFR/1.73 sq M predicted among non-blacks MDRD vol rate/area (S/P/Bld) mL/min/{1.73_m2} Normal >60 [facility] Comment on above: Order Comment: No: D o not add to previous draw Result Comment: Calc ulation may not be valid for patients over 70 years Performed By: #### 3 5200, 51731, 61029, 03270 #### [facility] [address] [place] [address], [place] Glucose mass conc 152 mg/dL High 70-100 [facility] Comment on above: Order Comment: No: D o not add to previous draw Performed By: #### 3 5200, 61011, 89370, 65522 #### [facility] [address] [place] [address], [facility] Potassium molar conc 3.7 mmol/L Normal 3.5-5.1 [facility] Comment on above: Order Comment: No: D o not add to previous draw Performed By: #### 3 5200, 09192, 74563, 47178 #### [facility] [address] [place] [address], [place] Sodium molar conc 138 mmol/L Normal 136-145 [facility] Comment on above: Order Comment: No: D o not add to previous draw Performed By: #### 3 5200, 42247, 69923, 48595 #### [facility] [address] [place] [address], [facility] Urea nitrogen mass conc 12 mg/dL Normal 7-25 [facility] Comment on above: Order Comment: No: D o not add to previous draw Performed By: #### 3 5200, 37307, 64433, 49505 #### [facility] [address] [place] [address], [place] CBC W/DIFFon 03-11-2018 ABS BASOPHILS 0.1 10*3/uL Normal 0.0-0.2 [facility] Comment on above: Order Comment: No: D o not add to previous draw Performed By: #### 3 5200, 81202, 85832, 78330 #### [facility] [address] ABS IMM GRANS 0.0 10*3/uL Normal 0.0-0.2 [facility] Comment on above: Order Comment: No: D o not add to previous draw Performed By: #### 3 5200, 95081, 37317, 52319 #### [facility] [address] [place] [address], [facility] ABS NEUTROPHILS 4.7 10*3/uL Normal 1.6-7.6 [facility] Comment on above: Order Comment: No: D o not add to previous draw Performed By: #### 3 5200, 63141, 26570, 62976 #### [facility] [address] Basophils #/vol (Bld) 0.9 % Normal 0.0-1.0 [facility] Comment on above: Order Comment: No: D o not add to previous draw Performed By: #### 3 5200, 04808, 79087, 91893 #### [facility] [address] [facility] [place] [address], [facility] Eosinophils #/vol (Bld) 0.2 10*3/uL Normal 0.0-0.5 [facility] Comment on above: Order Comment: No: D o not add to previous draw Performed By: #### 3 5200, 92227, 24098, 10202 #### [facility] [address] [place] [address], [facility] Eosinophils/100 WBC (Bld) 2.4 % Normal 0.0-6.0 [facility] Comment on above: Order Comment: No: D o not add to previous draw Performed By: #### 3 5200, 07983, 06771, 47512 #### [facility] [address] [place] [address], [facility] Erythrocyte distribution width Ratio (RBC) 16.1 % High 11.5-15.0 [facility] Comment on above: Order Comment: No: D o not add to previous draw Performed By: #### 3 5200, 55067, 14240, 32688 #### [facility] [address] [place] [id number], [facility] Hematocrit Volume Fraction (Bld) 38.7 % Normal 36.0-45.0 [facility] Comment on above: Order Comment: No: D o not add to previous draw Performed By: #### 3 5200, 67619, 55767, 11834 #### [facility] [address] [place] [address], [facility] Hemoglobin mass conc (Bld) 12.5 g/dL Normal 12.0-15.0 [facility] Comment on above: Order Comment: No: D o not add to previous draw Performed By: #### 3 5200, 32253, 73150, 76297 #### [facility] [address] [place] [address], [facility] IMMATURE GRANS 0.6 % Normal 0.0-1.0 [facility] Comment on above: Order Comment: No: D o not add to previous draw Performed By: #### 3 5200, 58712, 58977, 90136 #### [facility] [address] [place] [address], [facility] Lymphocytes #/vol (Bld) 1.3 10*3/uL Normal 1.2-4.0 [facility] Comment on above: Order Comment: No: D o not add to previous draw Performed By: #### 3 5200, 61397, 37426, 40506 #### [facility] [address] [place] [address], [place] Lymphocytes/100 WBC (Bld) 18.6 % Low 20.0-45.0 [facility] Comment on above: Order Comment: No: D o not add to previous draw Performed By: #### 3 5200, 19746, 97942, 58944 #### [facility] [address] MCH Entitic mass (RBC) 29.9 pg Normal 27.0-33.0 [facility] Comment on above: Order Comment: No: D o not add to previous draw Performed By: #### 3 5200, 85144, 49652, 24188 #### [facility] [address] [place] [address], [facility] MCHC mass conc (RBC) 32.3 g/dL Normal 32.0-35.0 [facility] Comment on above: Order Comment: No: D o not add to previous draw Performed By: #### 3 5200, 14230, 19775, 27766 #### [facility] [address] [facility] [address] MCV Entitic volume (RBC) 92.6 fL Normal 82.0-98.0 [facility] Comment on above: Order Comment: No: D o not add to previous draw Performed By: #### 3 5200, 75235, 87578, 06938 #### [facility] [address] [facility] [place] [address], [facility] Monocytes #/vol (Bld) 0.5 10*3/uL Normal 0.1-1.0 [facility] Comment on above: Order Comment: No: D o not add to previous draw Performed By: #### 3 5200, 58072, 59449, 72790 #### [facility] [address] [facility] [place] [address], [facility] MONOS 7.0 % Normal 5.0-12.0 [facility] Comment on above: Order Comment: No: D o not add to previous draw Performed By: #### 3 5200, 77787, 80525, 98706 #### [facility] [address] [place] [address], [facility] Neutrophils/100 WBC (Bld) 70.5 % Normal 40.0-72.0 [facility] Comment on above: Order Comment: No: D o not add to previous draw Performed By: #### 3 5200, 58417, 96759, 59178 #### [facility] [address] [place] [address], [facility] Nucleated RBC/100 WBC Ratio (Bld) 0 % Normal 0-0 [facility] Comment on above: Order Comment: No: D o not add to previous draw Performed By: #### 3 5200, 69234, 71327, 49640 #### [facility] [address] [place] [address], [facility] PLAT CNT 189 10*3/uL Normal 150-400 [facility] Comment on above: Order Comment: No: D o not add to previous draw Performed By: #### 3 5200, 58092, 71575, 23980 #### [facility] [address] [place] [address], [facility] RBC #/vol (Bld) 4.18 10*6/uL Normal 3.80-5.00 [facility] Comment on above: Order Comment: No: D o not add to previous draw Performed By: #### 3 5200, 46791, 44157, 67216 #### [facility] [address] [place] [address], [facility] WBC #/vol (Bld) 6.71 10*3/uL Normal 4.00-10.60 [facility] Comment on above: Order Comment: No: D o not add to previous draw Performed By: #### 3 5200, 97411, 10650, 87692 #### [facility] [address] [place] [address], [facility] POC GLUCOSE LABon 03-11-2018 Glucose mass conc 128 mg/dL High 70-100 [facility] Comment on above: Performed By: #### 3 5200, 80274, 41938, 70519 #### [facility] [address] [place] [address], [facility] Glucose mass conc 100 mg/dL Normal 70-100 [facility] Comment on above: Performed By: #### 3 5200, 41453, 76860, 72569 #### [facility] [address] [facility]. [address] Glucose mass conc 158 mg/dL High 70-100 [facility] Comment on above: Performed By: #### 3 5200, 19708, 46007, 57313 #### [facility] [address] [facility] [address] UFH HEPARIN ASSAYon 03-11-19 19 UNFRACTIONATED HEPARIN 0.35 IU/mL Normal 0.30-0.70 [facility] Comment on above: Order Comment: Yes: Add to Previous draw if able Result Comment: [place] roxaban and Apixaban will interfere with the anti Xa assay used to monitor UFH and LMWH. RESULTS CHECKED AND CALLED. ACCURATELY READ BACK BY ANANYA GUERRA RN AT 15:51 CLINICAL SIGNIFICANCE OF THE PTT RESULT IS QUESTIONABLE IN THE PRESENCE OF HEPARIN. Performed By: #### 3 5200, 76409, 50830, 73435 #### [facility] [address] [facility]. [address] UNFRACTIONATED HEPARIN 0.28 IU/mL Low 0.30-0.70 [facility] Comment on above: Result Comment: [place] roxaban and Apixaban will interfere with the anti Xa assay used to monitor UFH and LMWH. Performed By: #### 3 5200, 59234, 50629, 88401 #### [facility] [address] [facility]. [address] APTTon 03-10-2018 aPTT Coag time (Bld) 53.0 s High 25.0-35.0 [facility] Comment on above: Order Comment: No: [...] OF HEPARIN. Performed By: #### 3 5200, 37144, 29792, 43164 #### [facility] [address] [place] [address], [facility] aPTT Coag time (Bld) 47.7 s High 25.0-35.0 [facility] Comment on above: Order Comment: No: [...] THIS PURPOSE. Performed By: #### 3 5200, 65690, 85816, 91048 #### [facility] [address] [facility] [place] [address], [facility] aPTT Coag time (Bld) 68.2 s High 25.0-35.0 [facility] Comment on above: Order Comment: No: [...] THIS PURPOSE. Performed By: #### 3 5200, 70385, 57461, 81853 #### [facility] [address] [facility] [place] [address], [facility] BASIC METABOLIC PANELon 02-0 -2018 Calcium mass conc 8.7 mg/dL Normal 8.6-10.3 [facility] Comment on above: Order Comment: No: D o not add to previous draw Performed By: #### 3 5200, 78087, 24277, 37620 #### [facility] [address] [place] [address], [facility] Chloride molar conc 100 mmol/L Normal 98-107 [facility] Comment on above: Order Comment: No: D o not add to previous draw Performed By: #### 3 5200, 81170, 61002, 58632 #### [facility] [address] [place] [address], [place] CO2 molar conc 28 mmol/L Normal 21-31 [facility] Comment on above: Order Comment: No: D o not add to previous draw Performed By: #### 3 5200, 82687, 24361, 21637 #### [facility] [address] [place] [address], [place] Creatinine mass conc 0.57 mg/dL Low 0.60-1.20 [facility] Comment on above: Order Comment: No: D o not add to previous draw Performed By: #### 3 5200, 80007, 11792, 39551 #### [facility] [address] [place] [address], [place] GFR/1.73 sq M predicted among blacks MDRD vol rate/area (S/P/Bld) mL/min/{1.73_m2} Normal >60 [facility] Comment on above: Order Comment: No: D o not add to previous draw Result Comment: Calc ulation may not be valid for patients over 70 years Performed By: #### 3 5200, 15376, 37585, 60449 #### [facility] [address] [place] [address], [place] GFR/1.73 sq M predicted among non-blacks MDRD vol rate/area (S/P/Bld) mL/min/{1.73_m2} Normal >60 [facility] Comment on above: Order Comment: No: D o not add to previous draw Result Comment: Calc ulation may not be valid for patients over 70 years Performed By: #### 3 5200, 24120, 62715, 01592 #### [facility] [address] [place] [address], [place] Glucose mass conc 141 mg/dL High 70-100 [facility] Comment on above: Order Comment: No: D o not add to previous draw Performed By: #### 3 5200, 52188, 13665, 10307 #### [facility] [address] [place] [address], [facility] Potassium molar conc 4.0 mmol/L Normal 3.5-5.1 [facility] Comment on above: Order Comment: No: D o not add to previous draw Performed By: #### 3 5200, 43040, 19212, 51636 #### [facility] [address] [place] [id number], [facility] Sodium molar conc 136 mmol/L Normal 136-145 [facility] Comment on above: Order Comment: No: D o not add to previous draw Performed By: #### 3 5200, 10926, 11575, 48042 #### [facility] [address] [place] [id number], [facility] Urea nitrogen mass conc 12 mg/dL Normal 7-25 [facility] Comment on above: Order Comment: No: D o not add to previous draw Performed By: #### 3 5200, 55379, 03387, 65218 #### [facility] [address] CBC COMPLETE BLOOD COUNTon 0 - Erythrocyte distribution width Ratio (RBC) 16.1 % High 11.5-15.0 [facility] Comment on above: Order Comment: No: D o not add to previous draw Performed By: #### 3 5200, 65082, 19226, 43974 #### [facility] [address] [place] [address], [facility] [facility] Hematocrit Volume Fraction (Bld) 39.4 % Normal 36.0-45.0 [facility] Comment on above: Order Comment: No: D o not add to previous draw Performed By: #### 3 5200, 70193, 23657, 65380 #### [facility] [address] [place] [address], [facility] Hemoglobin mass conc (Bld) 12.9 g/dL Normal 12.0-15.0 [facility] Comment on above: Order Comment: No: D o not add to previous draw Performed By: #### 3 5200, 47641, 64380, 48072 #### [facility] [address] [place] [address], [facility] MCH Entitic mass (RBC) 30.0 pg Normal 27.0-33.0 [facility] Comment on above: Order Comment: No: D o not add to previous draw Performed By: #### 3 5200, 32022, 87046, 10656 #### [facility] [address] [place] [address], [facility] MCHC mass conc (RBC) 32.7 g/dL Normal 32.0-35.0 [facility] Comment on above: Order Comment: No: D o not add to previous draw Performed By: #### 3 5200, 82360, 71744, 21815 #### [facility] [address] [place] [address], [facility] MCV Entitic volume (RBC) 91.6 fL Normal 82.0-98.0 [facility] Comment on above: Order Comment: No: D o not add to previous draw Performed By: #### 3 5200, 75737, 80103, 06312 #### [facility] [address] [place] [address], [facility] Nucleated RBC/100 WBC Ratio (Bld) 0 % Normal 0-0 [facility] Comment on above: Order Comment: No: D o not add to previous draw Performed By: #### 3 5200, 20231, 52521, 09488 #### [facility] [address] [place] [address], [facility] PLAT CNT 200 10*3/uL Normal 150-400 [facility] Comment on above: Order Comment: No: D o not add to previous draw Performed By: #### 3 5200, 33361, 02434, 98563 #### [facility] [address] [place] [address], [facility] RBC #/vol (Bld) 4.30 10*6/uL Normal 3.80-5.00 [facility] Comment on above: Order Comment: No: D o not add to previous draw Performed By: #### 3 5200, 15864, 16118, 64419 #### [facility] [address] [place] [address], [facility] WBC #/vol (Bld) 7.21 10*3/uL Normal 4.00-10.60 [facility] Comment on above: Order Comment: No: D o not add to previous draw Performed By: #### 3 5200, 75234, 67834, 12635 #### [facility] [address] [facility]. [address] UFH HEPARIN ASSAYon 03-10-19 19 UNFRACTIONATED HEPARIN 0.33 IU/mL Normal 0.30-0.70 [facility] Comment on above: Result Comment: [place] roxaban and Apixaban will interfere with the anti Xa assay used to monitor UFH and LMWH. UFH ADDED PER PROTOCOL Performed By: #### 3 5200, 06719, 09865, 73572 #### [facility] [address] [facility]. [address] UNFRACTIONATED HEPARIN 0.89 IU/mL High 0.30-0.70 [facility] Comment on above: Order Comment: No: D o not add to previous draw Result Comment: Kathy roxaban and Apixaban will interfere with the anti Xa assay used to monitor UFH and LMWH. Performed By: #### 3 5200, 61203, 47535, 33538 #### [facility] [address] APTTon 03-09-2018 aPTT Coag time (Bld) 67.5 s High 25.0-35.0 [facility] Comment on above: Order Comment: Yes: [...] HEPARIN. Performed By: #### 8 5123 #### [facility] [address] [place] [address], [facility] aPTT Coag time (Bld) 58.4 s High 25.0-35.0 [facility] Comment on above: Order Comment: Yes: [...] PURPOSE. Performed By: #### 8 5123 #### [facility] [address] [facility] [address], [facility] aPTT Coag time (Bld) 89.8 s Critically high 25.0-35.0 [facility] Comment on above: Order Comment: Yes: [...] 14:02 Performed By: #### 8 5123 #### [facility] [address] [place] [id number], [facility] aPTT Coag time (Bld) 80.2 s Critically high 25.0-35.0 [facility] Comment on above: Order Comment: Yes: [...] PURPOSE. Performed By: #### 8 5123 #### [facility] [address] [facility]. [address] aPTT Coag time (Bld) 47.3 s High 25.0-35.0 [facility] Comment on above: Order Comment: No: [...] THIS PURPOSE. Performed By: #### 5 6101, 94856 #### [facility] [address] [facility]. [address] BNP (B-TYPE NATRIURETIC PEPT ISSA)on 03-09-2018 Natriuretic peptide B mass conc (Bld) 596 pg/mL High 0-100 [facility] Comment on above: Order Comment: Yes: Add to Previous draw if able Result Comment: Give n the appropriate clinical setting a BNP result of >100 pg/mL indicates congestive heart failure. Performed By: #### 8 5123 #### [facility] [address] [facility]. [address] CBC COMPLETE BLOOD COUNTon 0 03-09-2018 Erythrocyte distribution width Ratio (RBC) 16.1 % High 11.5-15.0 [facility] Comment on above: Order Comment: Yes: Add to Previous draw if able Performed By: #### 8 5123 #### [facility] [address] [place] [address], [facility] Hematocrit Volume Fraction (Bld) 42.2 % Normal 36.0-45.0 [facility] Comment on above: Order Comment: Yes: Add to Previous draw if able Performed By: #### 8 5123 #### [facility] [address] [place] [address], [facility] Hemoglobin mass conc (Bld) 13.7 g/dL Normal 12.0-15.0 [facility] Comment on above: Order Comment: Yes: Add to Previous draw if able Performed By: #### 8 5123 #### [facility] [address] [place] [address], [facility] MCH Entitic mass (RBC) 30.0 pg Normal 27.0-33.0 [facility] Comment on above: Order Comment: Yes: Add to Previous draw if able Performed By: #### 8 5123 #### [facility] [address] [place] [address], [facility] MCHC mass conc (RBC) 32.5 g/dL Normal 32.0-35.0 [facility] Comment on above: Order Comment: Yes: Add to Previous draw if able Performed By: #### 8 5123 #### [facility] [address] [place] [address], [facility] MCV Entitic volume (RBC) 92.5 fL Normal 82.0-98.0 [facility] Comment on above: Order Comment: Yes: Add to Previous draw if able Performed By: #### 8 5123 #### [facility] [address] [place] [address], [facility] Nucleated RBC/100 WBC Ratio (Bld) 0 % Normal 0-0 [facility] Comment on above: Order Comment: Yes: Add to Previous draw if able Performed By: #### 8 5123 #### [facility] [address] [place] [id number], [facility] PLAT CNT 208 10*3/uL Normal 150-400 [facility] Comment on above: Order Comment: Yes: Add to Previous draw if able Performed By: #### 8 5123 #### [facility] [address] RBC #/vol (Bld) 4.56 10*6/uL Normal 3.80-5.00 [facility] Comment on above: Order Comment: Yes: Add to Previous draw if able Performed By: #### 8 5123 #### [facility] [address] [facility] [address] WBC #/vol (Bld) 9.26 10*3/uL Normal 4.00-10.60 [facility] Comment on above: Order Comment: Yes: Add to Previous draw if able Performed By: #### 8 5123 #### [facility] [address] [facility] [address] Erythrocyte distribution width Ratio (RBC) 15.9 % High 11.5-15.0 [facility] Comment on above: Order Comment: Yes: Add to Previous draw if able Performed By: #### 5 0608 #### [facility] [address] [facility] [address] Hematocrit Volume Fraction (Bld) 38.2 % Normal 36.0-45.0 [facility] Comment on above: Order Comment: Yes: Add to Previous draw if able Performed By: #### 5 0608 #### [facility] [address] [facility] [address] Hemoglobin mass conc (Bld) 12.4 g/dL Normal 12.0-15.0 [facility] Comment on above: Order Comment: Yes: Add to Previous draw if able Performed By: #### 5 0608 #### [facility] [address] [place] [address], [facility] MCH Entitic mass (RBC) 29.5 pg Normal 27.0-33.0 [facility] Comment on above: Order Comment: Yes: Add to Previous draw if able Performed By: #### 5 0608 #### [facility] [address] MCHC mass conc (RBC) 32.5 g/dL Normal 32.0-35.0 [facility] Comment on above: Order Comment: Yes: Add to Previous draw if able Performed By: #### 5 0608 #### [facility] [address] MCV Entitic volume (RBC) 91.0 fL Normal 82.0-98.0 [facility] Comment on above: Order Comment: Yes: Add to Previous draw if able Performed By: #### 5 0608 #### [facility] [address] [facility] [address] Nucleated RBC/100 WBC Ratio (Bld) 0 % Normal 0-0 [facility] Comment on above: Order Comment: Yes: Add to Previous draw if able Performed By: #### 5 0608 #### [facility] [address] [facility] [address], [facility] PLAT CNT 193 10*3/uL Normal 150-400 [facility] Comment on above: Order Comment: Yes: Add to Previous draw if able Performed By: #### 5 0608 #### [facility] [address] [facility] [address] RBC #/vol (Bld) 4.20 10*6/uL Normal 3.80-5.00 [facility] Comment on above: Order Comment: Yes: Add to Previous draw if able Performed By: #### 5 0608 #### [facility] [address] [facility] [address] WBC #/vol (Bld) 8.57 10*3/uL Normal 4.00-10.60 [facility] Comment on above: Order Comment: Yes: Add to Previous draw if able Performed By: #### 5 0608 #### [facility] [address] [place] [address], [facility] ELECTROLYTE PANELon 03-09-19 19 Chloride molar conc 98 mmol/L Normal 98-107 [facility] Comment on above: Order Comment: Yes: Add to Previous draw if able Performed By: #### 3 5200, 22210, 90568, 46299 #### [facility] [address] [place] [address], [facility] CO2 molar conc 26 mmol/L Normal 21-31 [facility] Comment on above: Order Comment: Yes: Add to Previous draw if able Performed By: #### 3 5200, 86094, 31946, 84197 #### [facility] [address] [place] [address], [facility] Potassium molar conc 4.0 mmol/L Normal 3.5-5.1 [facility] Comment on above: Order Comment: Yes: Add to Previous draw if able Performed By: #### 3 5200, 31899, 41875, 65558 #### [facility] [address] [place] [address], [facility] Sodium molar conc 135 mmol/L Low 136-145 [facility] Comment on above: Order Comment: Yes: Add to Previous draw if able Performed By: #### 3 5200, 88655, 28720, 51683 #### [facility] [address] [place] [address], [facility] MAGNESIUM BLOODon 03-09-2018 Magnesium mass conc 1.2 mg/dL Low 1.9-2.7 [facility] Comment on above: Order Comment: Yes: Add to Previous draw if able Performed By: #### 3 5200, 37404, 44817, 80298 #### [facility] [address] [place] [address], [facility] PORTABLE CHEST 1 VIEWon PORTABLE CHEST 1 VIEW [facility] Department of Radiology [address] [place] [address] ======== Patient Name: PERCY KAPLAN : 1945 Sex: F Age: Race: White Pt. Location: [id number] Patient Status: I Ordered Date: 03/09/2018 2:15:00 AM Completed Date: 03/09/2018 03:06 AM Requesting Provider: MILA COSTELLO I Attending Provider: STEPHANIE CARBALLO Report Copy To: Signs & Symptoms: Shortness of Breath History: Patient history not available Comments: R/O Infiltrates Exam: PORTABLE CHEST 1 VIEW ======== PORTABLE CHEST 1 VIEW 03/09/2018 3:06 AM [...] findings. Electronically signed by:Peña Díaz. Transcribed by: [email or web address], User Resident: BETH MILTON Electronically Signed by: PEÑA DÍAZ @ 03/09/2018 01:31 PM I personally read this/these film(s) with this resident Normal [facility] Comment on above: Order Comment: Yes: Add to Previous draw if able PROTHROMBIN TIMEon INR Coag RelTime (PPP) 1.78 {INR} High 0.91-1.16 [facility] Comment on above: Result Comment: [facility] P RECOMMENDED INR FOR WARFARIN THERAPY --------- ------- CONDITION INR PROPHYLAXIS OF VENOUS THROMBOSIS 2-3 (HIGH-RISK SURGERY) TREATMENT OF VENOUS THROMBOSIS 2-3 TREATMENT OF PULMONARY EMBOLISM 2-3 PREVENTION OF SYSTEMIC EMBOLISM: 2-3 ACUTE MYOCARDIAL INFARCTION TISSUE HEART VALVES VALVULAR HEART DISEASE ATRIAL FIBRILLATION RECURRENT SYSTEMIC EMBOLISM MECHANICAL HEART VALVE 2.5-3.5 FROM: ORAL ANTICOAGULANTS. MECHANISM OF ACTION, CLINICAL EFFECTIVENESS, AND OPTIMAL THERAPEUTIC RANGE. CHEST 1995;108:231S-246S. Performed By: #### 8 5123 #### [facility] [address] Prothrombin time (PT) Coag time (PPP) 20.8 s High 12.3-14.8 [facility] Comment on above: Result Comment: ALL RESULTS MUST BE INTERPRETED WITH RESPECT TO BLOOD DRAWING ARTIFACT OR DILUTION ERROR OF ANTICOAGULANT AT THE TIME OF SAMPLING. Performed By: #### 8 5123 #### [facility] [address] [place] [address], [facility] INR Coag RelTime (PPP) 2.82 {INR} High 0.91-1.16 [facility] Comment on above: Order Comment: No: D o not add to previous draw Result Comment: [facility] P RECOMMENDED INR FOR WARFARIN THERAPY --------- ------- CONDITION INR PROPHYLAXIS OF VENOUS THROMBOSIS 2-3 (HIGH-RISK SURGERY) TREATMENT OF VENOUS THROMBOSIS 2-3 TREATMENT OF PULMONARY EMBOLISM 2-3 PREVENTION OF SYSTEMIC EMBOLISM: 2-3 ACUTE MYOCARDIAL INFARCTION TISSUE HEART VALVES VALVULAR HEART DISEASE ATRIAL FIBRILLATION RECURRENT SYSTEMIC EMBOLISM MECHANICAL HEART VALVE 2.5-3.5 FROM: ORAL ANTICOAGULANTS. MECHANISM OF ACTION, CLINICAL EFFECTIVENESS, AND OPTIMAL THERAPEUTIC RANGE. CHEST 1995;108:231S-246S. Performed By: #### 5 6101, 29730 #### [facility] [address] Prothrombin time (PT) Coag time (PPP) 29.9 s High 12.3-14.8 [facility] Comment on above: Order Comment: No: D o not add to previous draw Result Comment: ALL RESULTS MUST BE INTERPRETED WITH RESPECT TO BLOOD DRAWING ARTIFACT OR DILUTION ERROR OF ANTICOAGULANT AT THE TIME OF SAMPLING. Performed By: #### 5 6101, 83287 #### [facility] [address] TROPONIN-Ion 03-09-2018 Troponin I.cardiac mass conc 0.01 ng/mL Normal 0.00-0.04 [facility] Comment on above: Order Comment: No: D o not add to previous draw Result Comment: REFE RENCE RANGES: 0.00 - 0.04 ng/ml NORMAL 0.05 - 0.50 ng/ml INDETERMINATE > 0.50 ng/ml CONSISTENT WITH AN M.I. Performed By: #### 3 5200 #### [facility] [address] [facility] [address] Troponin I.cardiac mass conc 0.01 ng/mL Normal 0.00-0.04 [facility] Comment on above: Order Comment: No: D o not add to previous draw Result Comment: REFE RENCE RANGES: 0.00 - 0.04 ng/ml NORMAL 0.05 - 0.50 ng/ml INDETERMINATE > 0.50 ng/ml CONSISTENT WITH AN M.I. Performed By: #### 3 5200 #### [facility] [address] Troponin I.cardiac mass conc 0.01 ng/mL Normal 0.00-0.04 [facility] Comment on above: Order Comment: No: D o not add to previous draw Result Comment: REFE RENCE RANGES: 0.00 - 0.04 ng/ml NORMAL 0.05 - 0.50 ng/ml INDETERMINATE > 0.50 ng/ml CONSISTENT WITH AN M.I. Performed By: #### 3 5200, 39689, 69958, 39959 #### [facility] [address] TSH3on 03-09-2018 TSH 3RD GENERATION 3.21 uIU/mL Normal 0.34-5.60 [facility] Comment on above: Order Comment: Yes: Add to Previous draw if able Performed By: #### 3 5200, 81786, 09453, 30028 #### [facility] [address] UFH HEPARIN ASSAYon 03-09-19 19 UNFRACTIONATED HEPARIN >1.00 Critically high 0.30-0.7 0 [facility] Comment on above: Result Comment: [place] roxaban and Apixaban will interfere with the anti Xa assay used to monitor UFH and LMWH. Performed By: #### 8 5123 #### [facility] [address] [facility] [place] [address], [facility] UNFRACTIONATED HEPARIN >1.00 Critically high 0.30-0.7 0 [facility] Comment on above: Order Comment: Yes: Add to Previous draw if able Result Comment: Kathy roxaban and Apixaban will interfere with the anti Xa assay used to monitor UFH and LMWH. UFH = 2.28. UFH MAY BE ELEVATED IN THE PRESENCE OF OTHER ANTI-XA INHIBITORS. Performed By: #### 8 5123 #### [facility] [address] [place] [address], [facility] UNFRACTIONATED HEPARIN >1.00 Critically high 0.30-0.7 0 [facility] Comment on above: Result Comment: [place] roxaban and Apixaban will interfere with the [...] 2.62 Performed By: #### 8 5123 #### [facility] [address] Vital Signs Date Time Vital Sign Value Performing Clinician Faci lity 10-27-2022 12:14-0400 Diastolic blood pressure 53 mm[Hg] MD Gumaro Ordonez Work Phone: [facility] 10-27-2022 12:14-0400 Heart rate 73 /min MD Gumaro Ordonez Work Phone: [facility] 10-27-2022 12:14-0400 Respiratory rate 18 /min MD Gumaro Ordonez Work Phone: [facility] 10-27-2022 12:14-0400 SaO2% (BldA) [Mass fraction] 95 % MD Gumaro Ordonez Work Phone: [facility] 10-27-2022 12:14-0400 Systolic blood pressure 128 mm[Hg] MD Gumaro Ordonez Work Phone: [facility] 10-27-2022 10:54-0400 Body height 160.02 cm MD Gumaro Ordonez Work Phone: [facility] 10-27-2022 10:54-0400 Body weight 122.46 kg MD Gumaro Ordonez Work Phone: [facility] Encounters Encounter Date Encounter Type Care Provider Facility Start: 03-29-2023 ambulatory [facility] Start: 03-28-2023 End: 03-29-2023 ambulatory [facility] Start: 03-28-2023 ambulatory [facility] Start: 03-27-2023 Evaluation and management of inpatient [facility] Start: 03-27-2023 End: 03-28-2023 ambulatory [facility] Start: 03-19-2023 End: 03-19-2023 ambulatory [facility] Start: 02-27-2023 ambulatory [facility] Start: 02-27-2023 ambulatory [facility] Start: 02-27-2023 End: 03-29-2023 Evaluation and management of inpatient [facility] Start: 01-12-2023 End: 01-12-2023 ambulatory [facility] Start: 12-04-2022 End: 12-04-2022 ambulatory Joe Cosme Facility:[facility] Start: 12-04-2022 End: 12-04-2022 ambulatory MD Gumaro Ordonez Work Phone: [facility] Work Phone: Start: 12-04-2022 End: 12-04-2022 Patient encounter procedure MD Gumaro Ordonez Work Phone: [facility] Work Phone: Start: 11-14-2022 End: 11-14-2022 ambulatory [facility] Start: 10-27-2022 End: 10-27-2022 ambulatory Joe Farahnico Facility:[facility] Start: 10-27-2022 End: 10-27-2022 Admission to same day surgery center MD Gumaro Ordonez Work Phone: [facility] Work Phone: Start: 10-18-2022 End: 10-18-2022 ambulatory [facility] Start: 10-12-2022 ambulatory Mikey NIELSON Facility:[facility] Start: 10-11-2022 End: 10-15-2022 ambulatory Mikey NIELSON Facility:CD:[id number] Start: 09-22-2022 End: 09-22-2022 ambulatory [facility] Start: 07-17-2022 End: 07-17-2022 ambulatory [facility] Start: 05-01-2022 End: 05-02-[address] GUMARO ORDONEZ Facility:[facility] Start: 03-22-2022 End: 03-23-[address] GUMARO ORDONEZ Facility:[facility] Start: 10-31-2021 End: 11-01-[address] GUMARO ORDONEZ Facility:[facility] Start: 09-28-2021 End: 09-29-2021 ambulatory ROSA ROSA Facility:[facility] Start: 03-18-2018 End: 03-24-2018 Evaluation and management of inpatient HERNANDEZ R BERNADETTE Facility:[facility] Start: 03-09-2018 End: 03-13-2018 Evaluation and management of inpatient STEPHANIE AL-ABBOODI Facility:[facility] Procedures Date Procedure Procedure Detail Performing Clinician Start: 12-04-2022 Capsule endoscopy MD Gumaro Ordonez Work Phone: Start: 10-27-2022 Esophagogastroduodenoscopy MD Gumaro villagran Work Phone: Start: 03-12-2018 [employer], 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 Start: 03-12-2018 ULTRASONOGRAPHY OF RIGHT AND LEFT HEART, TRANSESOPHAGEAL MOSHRIK ABD ALAMIR Start: 03-11-2018 FLUOROSCOPY OF MULTIPLE CORONARY ARTERIES USING OTH CONTRAST OMEGA DALE Start: 03-11-2018 MEASURE OF CARDIAC SAMPL \T\ PRESSURE, R HEART, PERC APPROACH OMEGA ADLE Start: 03-11-2018 MEASUREMENT OF ARTERIAL FLOW, PULMONARY, PERC APPROACH OMEGA DALE Plan of Treatment Date Care Activity Detail Author Start: 12-04-2022 [facility] Start: 10-27-2022 [facility] Patient Education Colon polyps H emorrhoids (DC) Diverticulosis (DC) Hiatal Hernia (DC) [facility] Work Phone: Payers Date Payer Category Payer Medicare [id number] 2022 Self-pay 1958 Medicare [id number] 1958 Unknown [id number] 1945 Unknown [id number] 2.16.8 [id number] 1945 Unknown [id number] 2.16.8 [id number] 1945 Unknown [id number] 2.16.84 [id number] 1945 Unknown [id number] 2.16.84 [id number] 1945 Unknown [id number] 2.16.84 [id number] 1945 Unknown [id number] 2.16.84 [id number] 1945 Unknown [id number] 2.16.8 [id number] Unknown Carmen BC/BS [id number] Unknown [id number] 2.16.8 [id number] Unknown [id number] 2.16.8 [id number] Social History Date Type Detail Facility Start: 10-27-2022 Tobacco smoking stat us NHIS Never smoked tobacco (finding) [facility] Start: 1945 Sex Assigned At Female F [facility] Goals Date Patient Goal Desired Activity /State Clinical Notes 09-29-2021 to 03-29-2023 Note Date & Type Note Facility 03-29-2023 Note Discharge Order in p lace; AVS sent to [facility] 03-28-2023 Note She is doing very we ll clinically. Today's transthoracic echocardiogram showed that the Amulet device was more apparent on imaging than we usually see post SALVADOR closure. We proceeded with a transesophageal echocardiogram which showed that the device is still in position with good seal of the left atrial appendage but the device appears to might have migrated slightly forward, compared to the end result postimplantation. There was however no evidence of peridevice leak. The device appeared to still meet the CLOSE criteria. The case images were reviewed with Dr. ABHIJEET Miller from [facility] who is one of the experts in left atrial appendage closure using the amulet device and PI of the main Amulet ISSA trial. In addition the images were also reviewed with Dr. Jw Pierre from [place] who is an extrusion former and an expert in left atrial appendage closure with amulet device. Both experts recommended that the device is in acceptable position and meets CLOSE criteria and that the device appeared to be stable and they recommended leaving the device in place and not to attempt retrieval of the device. At this time we will monitor the patient till tomorrow and repeat a transthoracic echocardiogram in the morning. If there are no changes then we will discharge the patient home on dual antiplatelet therapy. Below is the signed recommendation from Dr ABHIJEET Miller: [facility] 03-28-2023 Note [facility] CARDIOLOGY INPAT IENT PROGRESS NOTE Reason for follow up: s/p Left atrial appendage closure device implant Subjective Patient examined this morning at bedside. Denies acute pain, SOB, edema, n/v, fever/chills, or palpitations. Right access site dressing changed. Patient denies pain or swelling to site, or numbness or tingling to extremity. Tele: Sinus with first degree AVB, rate 50-85, no events ALLERGIES Allergies Allergen Reactions Sulfa (Sulfonamide Antibiotics) Anaphylaxis CURRENT MEDS amiodarone, 200 mg, oral, Daily amitriptyline, 25 mg, oral, Nightly aspirin, 81 mg, oral, q AM atorvastatin, 40 mg, oral, Nightly carvedilol, 6.25 mg, oral, BID with meals insulin aspart, 0-20 Units, subcutaneous, Before meals & nightly levothyroxine, 125 mcg, oral, Daily metFORMIN XR, 500 mg, oral, BID potassium chloride CR, 10 mEq, oral, Daily sertraline, 50 mg, oral, Daily sodium chloride, 75 mL/hr, Last Rate: 75 mL/hr (03/28/23 0407) PRN medications: ondansetron ODT OR ondansetron, zinc oxide Objective Patient Vitals for the past 24 hrs: BP Temp Temp src Pulse Resp SpO2 Weight 03/28/23 1200 115/58 36.2 ???C (97.1 ???F) Temporal 75 17 96 % -- 03/28/23 1151 124/53 -- -- 75 -- -- -- 03/28/23 1040 131/57 -- -- 86 18 95 % -- 03/28/23 0800 140/60 36 ???C (96.8 ???F) Temporal 72 20 97 % -- 03/28/23 0543 -- -- -- -- -- -- 113 kg (249 lb 9 oz) 03/28/23 0400 118/54 36.5 ???C (97.7 ???F) Temporal 73 16 95 % -- 03/28/23 0019 102/53 -- -- 65 18 94 % -- 03/27/232014 (!) 119/45 36.3 ???C (97.4 ???F) Temporal 61 18 -- -- 03/27/23 1800 156/55 36.1 ???C (97 ???F) Temporal 52 20 95 % -- 03/27/23 1700 120/73 -- -- 55 18 97 % -- 03/27/23 1600 110/56 36.2 ???C (97.2 ???F) Temporal 54 18 94 % -- 03/27/23 1500 133/64 36.1 ???C (97 ???F) Temporal 60 16 97 % -- BP 115/58 Pulse 75 Temp 36.2 ???C (97.1 ???F) (Temporal) Resp 17 Ht 1.6 m (5' 3 ) Wt 113 kg (249 lb 9 oz) SpO2 96% BMI 44.21 kg/m??? Wt Readings from Last 3 Encounters: 03/28/23 113 kg (249 lb 9 oz) 03/28/23 113 kg (249 lb 9 oz) 01/12/23 122 kg (270 lb) General: Awake, alert, appropriate mood/affect, NAD, obese Eyes: anicteric sclera. Non-injected conjunctiva. No xanthelasmas Neck: No elevated JVP. No carotid bruit Pulm: Breath sounds clear to ascultation bilaterally with no wheeze, crackles or rhonchi Cards: rate irreg irreg, No S3 or S4 gallop. Murmur: systolic RUSB Abd: Soft, Nontender, physiologic bowel sounds are present Extr: Lower extremity edema: none. DP pulses present right foot, left foot is covered with dressing over DP site, toes are warm and pink, capillary refill brisk Skin: warm, dry, well perfused. Right femoral vein insertion site soft, clean, dry. Bandage placed over site. No drainage. Neuro: A&Ox3, No gross deficits Lab Results Component Value Date NA 135 (L) 03/28/2023 K 3.9 03/28/2023 CL 103 03/28/2023 ANIONGAP 11 03/28/2023 BUN 34 (H) 03/28/2023 CREATININE 1.30 (H) 03/28/2023 CALCIUM 8.7 03/28/2023 MG 1.9 03/20/2018 Lab Results Component Value Date BILITOT 1.9 (H) 03/19/2018 ALKPHOS 58 03/19/2018 AST 22 03/19/2018 ALT 28 03/19/2018 PROT 6.3 03/19/2018 ALBUMIN 3.3 (L) 03/19/2018 No results found for: CHOLESTEROL , CHOLESTEROL TOTAL , TRIGLYCERIDES , HDL , LDL CHOLESTEROL , LDL DIRECT , LDL CALC Lab Results Component Value Date BNP 596 (H) 03/09/2018 Lab Results Component Value Date TSH 3.21 03/09/2018 No results found for: DIGOXIN LVL No results found for: HGBA1C Lab Results Component Value Date WBC 7.21 03/28/2023 RBC 4.04 03/28/2023 HGB 10.0 (L) 03/28/2023 HCT 31.7 (L) 03/28/2023 MCV 78.5 (L) 03/28/2023 MCH 24.8 (L) 03/28/2023 MCHC 31.5 (L) 03/28/2023 RDW 17.9 (H) 03/28/2023 LYMPHOPCT 22.1 03/24/2018 EOSPCT 3.3 03/24/2018 EOSABS 0.3 03/24/2018 BASOSABS 0.1 03/24/2018 PLT 194 03/28/2023 NRBC 0 03/24/2018 No X-ray results found for the past 24 hours CV Testing: BRIGIDO 03/28/23 Conclusions Left Ventricle: The left ventricle is normal size. Global left ventricular systolic function is normal. EF range is estimated at 50 % -55 %. Right Ventricle: Normal right ventricular systolic function. Left Atrium: An amult LAAO device was placed in the left atrial appendage that is stable in position, no peridevice leaking or flow and no thrombus is noted. . The left atrium appears enlarged. Aortic Valve: A transcatheter aortic valve (TAVR) is seen. TTE 03/28/23 Conclusions Left Ventricle: The left ventricle is normal size. Global left ventricular systolic function is normal. EF range is estimated at 55 % -60 %. Left ventricular wall thickness is moderately increased. No regional wall motion abnormality. Right Ventricle: The right ventricle appears normal in size. Right ventricular systolic function appears normal. Left Atrium: An amult LAAO device was placed in the left atrial appendage, and appears to (more content not included)... [facility] 03-28-2023 Note ([phone]) PC to Jagjit; Jagjit confirmed Patient is active with them for wound care, Jagjit not providing any therapies. Jagjit added to AVS OTM following: - planning discharge to home with [facility] resuming wound care services [facility] 03-27-2023 Note 03/27/23 1518 Admission Assessment Questions Verify insurance with patient Yes Do you understand medical disease or what brought you into the hospital? Yes Who is your current PCP? Gumaro Ordonez MD Can I schedule a follow up appointment for you at the time of discharge? Yes Do you understand why you are taking your current medications? Yes Are you taking your medications as prescribed? Yes Did patient provide teach back? Yes Would you like use our pharmacy [facility] to fill your new medications at the time of Discharge? No Does the patient have a case resource manager assigned to them through their insurance? No Living Arrangement (Current/Prior to Hospitalization) Private residence;Home self care (lives alone; one story home w/1 entry stair that has a lift to get up the others) Does the patient have history of HHC or SNF? No Assistive Device Wheelchair;Walker Patient's goal for discharge home Was patient reminded that goal for discharge is 11am? Yes Does the patient have transportation at discharge? Yes Type of Residence/Post Acute Needs Private residence Is PT/OT appropriate? No Is PT/OT ordered? No Is SW consult appropriate? No Is SW consult ordered? No Do you understand the benefits of MyChart? Yes Were you able to send link and activate MyChart? No (poor internet service in area) [facility] 03-27-2023 Note Patient: Percy salazar Procedure Information Date/Time: 03/27/23 0830 Procedure: Left atrial appendage closure (transvenous) Location: [facility] 3 / [facility] (Cath) Providers: Jolene Carr MD Clinical information reviewed: Allergies Meds OB Status Physical Exam Airway Mallampati: III TM distance: >3 FB Neck ROM: full Cardiovascular Rhythm: regular Rate: normal Dental Pulmonary Abdominal Anesthesia Plan ASA 3 (Conscious sedation) Anesthetic plan and risks discussed with patient. Use of blood products discussed with patient who. Plan discussed with attending. Additional Equipment Requests [facility] 03-19-2023 Note [place] [facility] - [facility] Subjective Percy Kaplan is a [...] status post TAVR in May 2018 at [facility]. This was using a 23 mm [...] She had a discussion with her primary zanjero Dr. Burnett and they agreed that left [...] Platelets 02/12/2023 226 Sodium 02/12/2023 129 Potassium 01/08/2 (more content not included)... [facility] 02-27-2023 Note ------ Attestation signed by [...] No hemodynamic complications noted. Rochelle Diane MD Principal Trainer - PGY5 [facility] 02-27-2023 Note Patient: Percy salazar Procedure Information Date/Time: 02/27/23 1015 Procedure: Cardioversion/defibrillation Location: [facility] HOLDING ROOM / [facility] (Cath) Providers: Jolene Carr MD Clinical information reviewed: Allergies Meds OB Status Physical Exam Airway Mallampati: III TM distance: >3 FB Neck ROM: full Cardiovascular Rhythm: regular Rate: normal Dental Pulmonary Abdominal Anesthesia Plan Additional Equipment Requests [facility] 01-12-2023 Note [place] [facility] Subjective Percy Kaplan is a [...] status post TAVR in May 2018 at [facility]. This was using a 23 mm [...] She had a discussion with her primary zanjero Dr. Burnett and they agreed that left [...] Rfl: coenzyme Q-10 (more content not included)... [facility] 11-29-2022 Note I called and spoke t o patient. Explained the LAAO procedure, pre/post-procedure imaging, post-procedure medications, risks and benefits. She would like to proceed with the procedure. She is pending a video capsule study. Please schedule her for an appt with Dr. Carr for further discussion. [facility] 11-14-2022 Note [facility] CARDIOLOGY PROGR ESS [...] and she p (more content not included)... [facility] 11-14-2022 Note Patient here for 4 w [place] follow up GI visit. She underwent upper and lower scopes at [facility]. Per patient, Dr. Cosme cleared her to resume Xarelto, but she has not done so yet. She wanted to discuss with Dr. Burnett first. Still denies chest pain, SOB, palpitations, and bleeding. Patient expressed interest in the Watchman/Amulet device. Review of Systems Musculoskeletal: Positive for muscle weakness. All other systems reviewed and are negative. [facility] 10-18-2022 Note Patient here for fol low up [facility] discharge for GI bleed. She takes Xarelto for afib, but this was stopped, along with aspirin. Chest tightness and SOB has resolved and she's feeling much better. Doing more walking throughout her house. Denies lightheadedness and falls. Review of Systems Musculoskeletal: Positive for muscle weakness. All other systems reviewed and are negative. [facility] 10-18-2022 Note [facility] CARDIOLOGY PROGR ESS [...] daily weights, I (more content not included)... [facility] 10-11-2022 Note i [facility] 09-22-2022 Note [place] [facility] Subjective Percy Kaplan is a [...] status post TAVR in May 2018 at [facility]. This was using a 23 mm [...] , Rfl: Recent (more content not included)... [facility] 07-17-2022 Note Patient here for 6 m o follow up PAF, aortic valve disorder, CHF, carotid artery stenosis, and hypertension. She had echo in Feb [address] [facility]. Denies chest pain, SOB, palpitations, and bleeding on Eliquis. Had routine labs in April 2022. Review of Systems Respiratory: Positive for cough. Musculoskeletal: Positive for arthritis, back pain, joint pain, muscle weakness and myalgias. Neurological: Positive for loss of balance. All other systems reviewed and are negative. [facility] 07-17-2022 Note [facility] CARDIOLOGY PROGR ESS [...] provided. Patient verbal (more content not included)... [facility] 03-22-2022 Note PROCEDURE: XR ANKLE LT [...] authenticated by: FABRICIO BANKS Date: 2022-03-22 10:42 [facility] 09-29-2021 Note PROCEDURE: XR ANKLE LT [...] authenticated by: GENE BERMUDEZ Date: 2021-09-29 10:11 [facility] Evaluation note No assessment information [facility] Work Phone: Summary Purpose Family History No Family History Records Found Relationship Condition Age at Onset Recorded Date/T oliver Not Specified Malignant neoplasm of pancreas Unknown father Malignant neoplasm of kidney Unknown Malignant neoplasm of liver Unknown Advance Directives No Advanced Directives Records Found Advance Directive Response Recorded Date/ Time Advance Directives No October 10:12am Hospital Course Note MR#: [id number] [facility] Pt. Name: Percy Kaplan Admitted: 03/09/2018 Discharged: 03/13/2018 Date of [...] content not included)... Note MR#: [id number] [facility] Pt. Name: Percy Kaplan Admitted: 03/18/2018 [...] was no chest pain. She went to [facility], was found to have elevated BNP. [...] and content) DATE CREATED AUTHOR 03/26/2018 [facility] DATE CREATED AUTHOR AUTHOR'S ORGANIZ ATION 05/10/2022 [facility] DATE CREATED AUTHOR AUTHOR'S ORGANIZ ATION 11/08/2022 [facility] DATE CREATED AUTHOR AUTHOR'S ORGANIZ ATION 01/17/2023 [facility] DATE CREATED AUTHOR AUTHOR'S ORGANIZ ATION 04/04/2023 [facility] Care Teams (unrecognized sec tion and content) [...] BE BASED ON THE PRIMARY CLINICAL RECORDS. [employer] provides no warranty or guarantee of the accuracy or completeness of information in this document.
== END 2023-04-09 13:09 | disposition home or self-care (01) ==
LOC: WC 13:08
PROVIDERS: PCP Family Medicine; Visit Provider Physician Assistant
DX: E11.621 Type 2 diabetes mellitus with foot ulcer (principal); L97.428 Non-pressure chronic ulcer of left heel and midfoot with other specified severity; S80.812A Abrasion, left lower leg, initial encounter
CPT/HCPCS: G0463

== ENCOUNTER 2023-04-30 10:52 | Outpatient (OUT) | payer MEDICARE, SELFPAY ==
--- OUTSIDE RECORDS SUMMARY | 2023-04-30 11:08 | XMS_ITS | CCD ---
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 Name Role Phone NICKOLASSTEPHANIE Atkinson Referring Unavailable SELF, REFERRED Primary Care Unavailable RAGHAVENDRA PERRY Admitting Unavailable DAVID SIMMONS Attending Unavailable MS Procedure Practitioner Unavailab OMEGA Ramirez Surgeon Unavailable MS Procedure Practitioner Unavailab NATA Tinoco ABD Surgeon Unavailable DAVID GABRIEL Admitting Unavailable BERNADETTEDAVID R Attending Unavailable SELF, REFERRED Primary Care Unavailable SELF, REFERRED Referring Unavailable MERY, DR GUMARO Fernandes Primary Care Unavailable NADERER, [...] NADERER, DR GUMARO Fernandes Primary Care [facility] Primary Care Unavailable [place], DR FABRICIO Novak Consulting Unavailable HIGHLANDER, ROSA Wadsworth Admitting Unavailable HIGHLANDER, ROSA Wadsworth Attending Unavailable HIGHLANDER, ROSA Wadsworth Consulting Unavailable Mikey NIELSON Attending Unavailable MD Joe Cosme Attending Provider [phone] MD Gumaro Ordonez Primary Care Provider Joe Cosme Attending Unavailable Gumaro Ordonez Primary Care Unavailable Joe Cosme Admitting Unavailable Joe Cosme Attending Unavailable Gumaro Ordonez Primary Care Unavailable Joe Cosme Admitting Unavailable JOLENE CARR Admitting Unavailable JOLENE CARR Attending Unavailable DEN BURNETT Attending Unavailable DEN BURNETT Attending Unavailable JOLENE CARR Attending Unavailable JOLENE CARR Referring Unavailable JOLENE CARR Referring Unavailable JOLENE CARR Referring Unavailable LORE HAWTHORNE Attending Unavailable JOLENE CARR Referring Unavailable LORE HAWTHORNE Referring Unavailable JOLENE CARR Referring Unavailable JOLENE CARR Referring Unavailable LORE HAWTHORNE Referring Unavailable JOLENE CARR Attending Unavailable DEN BURNETT Attending Unavailable JOLENE CARR Attending Unavailable Allergies Allergy Classification Reported Allergen(s) Allergy Type Date of Onset Reaction(s) Facility (3 sources) Sulfonamides (Antibiotic); Translations: [SULFA (SULFONAMIDE ANTIBIOTICS)] Drug allergy (disorder) 07-11-2013 [facility] Repository (1 source) Sulfonamides (Antibiotic) Drug allergy (disorder) 10-27-2022 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] Onset: 3 Episodic Other circulatory disease (2 sources) Presence of other cardiac implants and grafts; Translations: [Presence of other cardiac implants and grafts] Onset: 4 Chronic Other diseases of veins and lymphatics (1 [...] Value Interpretation Reference Range Facility Office Visiton 04-12-2023 Follow-up visit [id number] Percy Kaplan 1945 F Date Provider Department Center 04/12/2023 L[facility]SE [facility] Family History Problem Relation Age of Onset Aortic stenosis Father Other Father Family Status - Relation Status Age at Father Level of Service:06331 MS OFFICE/OUTPATIENT ESTABLISHED LOW MDM [address] [facility] 30on 03-29-2023 30 The patient is Moderately [...] and behaviors that affect risk of falls [place] fall precautions as indicated by assessment Educate [...] and maintained or improved Outcome: Progressing Normal [facility] DSon 03-29-2023 DS -- Attestation signed by [...] occluder device/amulet. Discharge Diagnosis Persistent atrial fibrillation ([facility]) H/O GI bleeding DM type 2 Chronic Systolic heart failure [facility] 2 HTN with heart failure AO stenosis s/p TAVR Discharge Disposition- Good condition Home-Health Care [facility] () Discharge Medications Your medication list CONTINUE taking [...] antibiotics) Hospital Course Mrs Kaplan presented to [facility] on 03/27/2021 for elective SALVADOR closure procedure with Dr Carr. She has a complex prior medical history including paroxysmal atrial fibrillation, who needs long-term anticoagulation therapy to reduce the risk of stroke given elevated NIR8HE9-WONc score of 6 due to age, gender, hypertension, diabetes, and heart failure. she is not a good candidate for long-term anticoagulation due to history of gastrointestinal bleeding. Following evaluation in Cardiology Clinic, percutaneous SALVADOR closure procedure was recommended as an alternative to long-term anticoagulation. She was admitted to [facility] for observation. Tolerated procedure well, and no acute events overnight. TTE on 03/28/23 with noted possible ITALIAN device protruding into [place], therefore BRIGIDO was [...] reduce the risk of stroke given elevated QIL6HZ3-XPNw score of 6 due to age, gender, [...] valve flow. (more content not included)... Normal [facility] POCT GLUCOSE METER UNSOLICIT ED RESULTSon 03-29-2023 Glucose [Mass/Vol] 262 mg/dL High 70-105 [facility] Comment on above: Order Comment: Waive d Testing in the ED is performed under the ED CLIA certificate #[id number]. Result Comment: [email or web address] Performed By: #### L [id number] ####[facility] (BEAKER)[address] [place] [address] Glucose [Mass/Vol] 228 mg/dL High 70-105 [facility] Comment on above: Order Comment: Waive d Testing in the ED is performed under the ED CLIA certificate #[id number]. Result Comment: asav ill Performed By: #### L [id number] #### [facility] (BEAKER) [address] [place] [address] 30on 03-28-2023 30 The patient is Moderately Stable - Low risk of patient condition declining or worsening The patient's goals for the shift include comfort and rest The clinical goals for the shift include stable vs Over the shift, the patient did make progress toward her goals. Normal [facility] 30 The patient is Moderately Stable - [...] and behaviors that affect risk of falls [place] fall precautions as indicated by assessment Problem: Discharge Planning Goal: Discharge to home or other facility with appropriate resources Outcome: Progressing Problem: Chronic Conditions and Co-morbidities Goal: Patient's chronic conditions and co-morbidity symptoms are monitored and maintained or improved Outcome: Progressing Normal [facility] 30 The patient is Moderately Stable - Low risk of patient condition declining or worsening The patient's goals for the shift include comfort and rest The clinical goals for the shift include stable VS Over the shift, the patient did make progress toward her goals. [facility] Javid 03-28-2023 ANES -- Attestation signed by Kayode [...] Procedure: Left atrial appendage closure (transvenous) Location: [facility] HEALTH CARE AIDE 3 / [facility]ASCULAR [facility] (Cath) Providers: Jolene Carr MD Clinical information reviewed: Allergies Physical Exam Airway Mallampati: III TM distance: >3 FB Neck ROM: full Cardiovascular Rhythm: regular Rate: normal Dental Pulmonary Abdominal Anesthesia Plan ASA 3 (Conscious sedation) Anesthetic plan and risks discussed with patient. Use of blood products discussed with patient who. Plan discussed with attending. Additional Equipment Requests Normal [facility] BASIC METABOLIC PANELon 03-09 Anion gap [Moles/Vol] 11 mmol/L Normal 7-[address] [facility] Comment on above: Performed By: #### L [id number] #### [facility] ([facility]) [address] [place] [address] Calcium [Mass/Vol] 8.7 mg/dL Normal 8.6-10.3 [facility] Comment on above: Performed By: #### L [id number] #### [facility] ([facility]) [address] [place] [address] Chloride [Moles/Vol] 103 mmol/L Normal 98-107 [facility] Comment on above: Performed By: #### L [id number] #### [facility] [address] [place] [address] CO2 [Moles/Vol] 25 mmol/L Normal 21-31 [facility] Comment on above: Performed By: #### L [id number] #### [facility] [address] [place] [address] Creatinine [Mass/Vol] 1.30 mg/dL High 0.60-1.[address] [facility] Comment on above: Performed By: #### L [id number] #### [facility] [address] [place] [address] GLOMERULAR FILTRATION RATE ML/MIN/1.73 SQ M.PREDICTED 42.6 mL/min/1.73m*2 Low >60.0 [facility] Comment on above: Result Comment: The [facility]???s estimated glomerular filtration rate (eGFR) will no [...] individuals. Performed By: #### L [id number] #### [facility] ([facility]) [address] [place] [address] Glucose [Mass/Vol] 213 mg/dL High 70-100 [facility] Comment on above: Performed By: #### L [id number] #### [facility] ([facility]) [address] [place] [address] Potassium [Moles/Vol] 3.9 mmol/L Normal 3.5-5.[address] [facility] Comment on above: Performed By: #### L [id number] #### [facility] ([facility]) [address] [place] [address] Sodium [Moles/Vol] 135 mmol/L Low 136-145 [facility] Comment on above: Performed By: #### L [id number] #### [facility] ([facility]) [address] [place] [address] Urea nitrogen [Mass/Vol] 34 mg/dL High 7-25 [facility] Comment on above: Performed By: #### L [id number] #### [facility] ([facility]) [address] [place] [address] UREA NITROGEN/CREATININE (MASS RATIO) IN SER/PLAS 26.[address] [facility] Comment on above: Performed By: #### L [id number] #### [facility] ([facility]) [address] [place] [address] CBCon 03-28-2023 Erythrocyte distribution width (RBC) [Ratio] 17.9 % High 11.5-15.0 [facility] Comment on above: Performed By: #### L [id number] #### [facility] ([facility]) [address] [place] [address] ERYTHROCYTE MEAN CORPUSCULAR HEMOGLOBIN CONCENTRATION (G/DL) BY AUTOMATED 31.5 g/dL Low 32.0-35.0 [facility] Comment on above: Performed By: #### L [id number] #### [facility] ([facility]) [address] [place] [address] Hematocrit (Bld) [Volume fraction] 31.7 % Low 36.0-48.0 [facility] Comment on above: Performed By: #### L [id number] #### [facility] ([facility]) [address] [place] [address] Hemoglobin (Bld) [Mass/Vol] 10.0 g/dL Low 12.0-15.0 [facility] Comment on above: Performed By: #### L [id number] #### [facility] ([facility]) [address] [place] [address] MCH (RBC) [Entitic mass] 24.8 pg Low 27.0-33.0 [facility] Comment on above: Performed By: #### L [id number] #### [facility] ([facility]) [address] [place] [address] MCV (RBC) [Entitic vol] 78.5 fL Low 82.0-98.0 [facility] Comment on above: Performed By: #### L [id number] #### [facility] ([facility]) [address] [place] [address] PLATELETS (10*3/UL) IN BLOOD AUTOMATED COUNT 194 10*3/uL Normal 150-400 [facility] Comment on above: Performed By: #### L [id number] #### [facility] ([facility]) [address] [place] [address] RBC (Bld) [#/Vol] 4.04 10*6/uL Normal 3.80-5.00 [facility] Comment on above: Performed By: #### L [id number] #### [facility] ([facility]) [address] [place] [address] WBC (Bld) [#/Vol] 7.21 10*3/uL Normal 4.00-10.60 [facility] Comment on above: Performed By: #### L [id number] #### [facility] ([facility]) [address] [place] [address] HPon 03-28-2023 HP -- Attestation signed by [...] with the patient and she's agreeable. Normal [facility] POCT GLUCOSE METER UNSOLICIT ED RESULTSon 03-28-2023 Glucose [Mass/Vol] 259 mg/dL High 70-105 [facility] Comment on above: Order Comment: Waive d Testing in the ED is performed under the ED CLIA certificate #[id number]. Result Comment: [email or web address] [email or web address] Performed By: #### L [id number] #### [facility] ([employer]) [address] [place] [address] Glucose [Mass/Vol] 306 mg/dL High 70-105 [facility] Comment on above: Order Comment: Waive d Testing in the ED is performed under the ED CLIA certificate #[id number]. Result Comment: [email or web address] Performed By: #### L [id number] #### [facility] (Other Machine) [address] [place] [address] Glucose [Mass/Vol] 232 mg/dL High 70-105 [facility] Comment on above: Order Comment: Waive d Testing in the ED is performed under the ED CLIA certificate #[id number]. Result Comment: [email or web address] Performed By: #### L [id number] #### [facility] ([employer]) [address] [place] [address] Glucose [Mass/Vol] 245 mg/dL High 70-105 [facility] Comment on above: Order Comment: Waive d Testing in the ED is performed under the ED CLIA certificate #[id number]. Result Comment: [email or web address] Performed By: #### L [id number] #### [facility] ([facility]) [address] [place] [address] 30on 03-27-2023 30 The patient is Moderately [...] and behaviors that affect risk of falls [place] fall precautions as indicated by assessment Educate patient/family on patient safety, including physical limitations Problem: Discharge Planning Goal: Discharge to home or other facility with appropriate resources Outcome: Progressing Problem: Chronic Conditions and Co-morbidities Goal: Patient's chronic conditions and co-morbidity symptoms are monitored and maintained or improved Outcome: Progressing Normal [facility] HPon 03-27-2023 H&P reviewed. Hx of TAVR in May 2018 using a [employer] HOLLIS 23 mm balloon expandable valve. Persistent atrial fibrillation with [id number]-AIWi score of 6. Poor candidate for long-term [...] were addressed and answered. Rochelle Diane MD Applications Development Analyst - PGY5 [facility] Normal [facility] MRSA/MSSA DNA NASALon 2023 MRSA DNA Negative Normal Negative [facility] Comment on above: Order Comment: Testi ng [...] preclude nasal colonization. Performed By: #### L [id number] ####[facility] (BEAKER)[address] [place] [address] MSSA DNA Negative Normal Negative [facility] Comment on above: Order Comment: Testi ng [...] preclude nasal colonization. Performed By: #### L [id number] ####[facility] ([facility])[address] [place] [address] POCT GLUCOSE METER UNSOLICIT ED RESULTSon 03-27-2023 Glucose [Mass/Vol] 168 mg/dL High 70-105 [facility] Comment on above: Order Comment: Waive d Testing in the ED is performed under the ED CLIA certificate #[id number]. Result Comment: [email or web address] Performed By: #### L [id number] #### [facility] ([facility]) [address] [facility] [place] [address] Glucose [Mass/Vol] 255 mg/dL High 70-105 [facility] Comment on above: Order Comment: Waive d Testing in the ED is performed under the ED CLIA certificate #[id number]. Result Comment: [email or web address] Performed By: #### L [id number] ####[facility] ([facility])[address] [place] [address] Glucose [Mass/Vol] 310 mg/dL High 70-105 [facility] Comment on above: Order Comment: Waive d Testing in the ED is performed under the ED CLIA certificate #[id number]. Result Comment: [email or web address] Performed By: #### L [id number] #### [facility] ([facility]) [address] [facility] [place] [address] TYPE AND SCREENon 03-27-2023 AB SCREEN Negative Normal [facility] Comment on above: Performed By: #### L [id number] #### [facility] BLOOD BANK , ABO group Nom (Bld) A Normal [facility] Comment on above: Performed By: #### L [id number] #### [facility] , RH TYPE IN BLOOD Positive Normal [facility] Comment on above: Performed By: #### L [id number] #### [facility] B[facility]OD [facility] , HPon 03-19-2023 [facility] Cardiology [facility] Subjective Percy Kaplan is a [...] post TAVR in May 2018 at [facility]. This was using a 23 mm [...] She had a discussion with her primary office agent Dr. Burnett and they agreed that left [...] 129 Potassium (more content not included)... Normal [facility] Office Visiton 03-19-2023 Follow-up visit [id number] Percy Kaplan 1945 F Date Provider Department Center 03/19/2023 JOLENE LOPEZ EDEN [facility] Family History Problem Relation Age of Onset Aortic stenosis Father Other Father Family Status - Relation Status Age at Father Level of Service:65102 MS OFFICE/OUTPATIENT ESTABLISHED HIGH MDM [address] [facility] Prep for Procedureon 024 Prep for Procedure [id number] Percy Kaplan 1945 Date Provider Department Center 03/15/2023 LORE BOSE Darci Family History Problem Relation Age of Onset Aortic stenosis Father Other Father Family Status - Relation Status Age at Father Normal [facility] HPon 02-27-2023 HP History Of Present Illness [...] reduce the risk of stroke given elevated XKC1VE7-JHMe score of 6 due to age, gender, [...] a past medical history of Atrial fibrillation (CMS/HCC), CHF (congestive heart failure) (CMS/HCC), Diabetes mellitus (CMS/HCC), Heart valve disease, Hypertension, PVD (peripheral vascular disease) (CMS/HCC), and Sleep apnea. Surgical History She has [...] infarct a (more content not included)... Normal [facility] NURSNOTEon 02-27-2023 NURSNOTE RN educated pt on d/ c instructions. RN encouraged pt to voice any questions or concerns. Pt verbalizes no questions or concerns at this time. Pt was wheeled off of unit with all of belongings. Normal [facility] NURSNOTE Bedside swallow stud y completed and passed. Normal [facility] Orders Onlyon 02-22-2023 Orders Only [id number] Percy Kaplan Mya 1945 Provider Department Center 02/22/2023 Alana5-GABRIEL DAN CARD [facility] Family History Problem Relation Age of Onset Aortic stenosis Father Other Father Family Status - Relation Status Age at Father Normal [facility] Office Visiton 01-12-2023 Follow-up visit [id number] Cheisabel Roque 1945 Date Provider Department Center 01/12/2023 Minal-JOLENE CARR CARD [facility] Family History Problem Relation Age of Onset Aortic stenosis Father Other Father Family Status - Relation Status Age at Father Level of Service:81132 MS OFFICE/OUTPATIENT ESTABLISHED HIGH MDM 40-[address] [facility] Office Visiton 11-14-2022 Follow-up visit [id number] Cheisabel Roque 1945 Provider Department Center 11/14/2022 3848-DEN BURNETT CARD [facility] Family History Problem Relation Age of Onset Aortic stenosis Father Other Father Family Status - Relation Status Age at Father Level of Service:52279 MS OFFICE/OUTPATIENT ESTABLISHED LOW MDM 20-29 MIN [facility] Glucose Glucometer (BldC) [M ass/Vol]Ordered By: Joe Cosme on 10-27-2022 Glucose [Mass/Vol] 220 mg/dL [facility] Comment on above: Random Glucose Refer ence Range is dependent on time and content of last meal. Glucose of more than 200 mg/dL in a nonstressed, ambulatory subject supports the diagnosis of Diabetes Mellitus. Glucose Poct Glucometerson 0 10-27-2022 Commemt1 Glu2: Cleaned Meter Normal [facility] Comment on above: Result Comment: PERF ORMED BY: [facility] [address] [place] [address] PATHOLOGIST DX BOARD OPERATOR NORMA MONTANA M.D. Performed By: #### G LULS #### Point of Care testing , Glucose [Mass/Vol] 220 mg/dL Normal [facility] Comment on above: Result Comment: [place] Glucose Reference Range is dependent on time and content of last meal. Glucose of more than 200 mg/dL in a nonstressed, ambulatory subject supports the diagnosis of Diabetes Mellitus. Performed By: #### G MELODIE #### Point of Care testing , Ryan 10-27-2022 L -- ---- Specimen: [id number] Received: 10/27/22 Status: TRAVIS Casas Num: [id number] Spec Type: Surgical Subm Dr: Joe Cosme MD Tissues: A Colon Biopsy (ASCND COL) Procedures: HE/Brayan, Gross/Micro L4 ---- Age/ Patient Sex Location Account Attending Physician ---- Percy Kaplan 77/F [id number] Joe Cosme MD ---- SPEC NUM: [id number] RECD: 10/27/22 STATUS: TRAVIS CASAS NUM: [id number] DELMY: 10/27/22- [facility] DR: Joe Cosme MD ENTERED: 10/27/[address] [facility] [address]: SPEC TYPE: Surgical DEPT: S ENTERED BY: [id number] RECV BY: [id number] ORDERED: HE/2, Gross/Micro L4 ORDERED: HE/2, Gross/Micro [...] microscopic examination confirms the diagnosis. CPT Codes 24327 ---- ---- Specimen: [id number] Received: 10/27/22 Status: TRAVIS Soaresreagan Num: [id number] Spec Type: Surgical Subm Dr: Joe Cosme MD Tissues: A Colon Biopsy (ASCND COL) Procedures: HE/2, Gross/Micro L4 ---- Patient: Percy Kaplan [id number] (Continued) ---- Signed (signature on file) Chin-Ariel Dominguez MD 10/30/[address] [facility] No Panel InformationOrdered By: Joe Cosme on 10-27-2022 Bedside Glucose Comment Glu2: cleaned meter [facility] Office Visiton 10-18-2022 Follow-up visit [id number] Percy Kaplan 1945 F Date Provider Department Center 10/18/2022 3848-DEN BURNETT [facility] Family History Problem Relation Age of Onset Aortic stenosis Father Other Father Family Status - Relation Status Age at Father Level of Service:65030 MS OFFICE/OUTPATIENT ESTABLISHED MOD MDM 30-[address] [facility] Outside Colonoscopyon 2022 Outside Colonoscopy [id number] 02 [id number]#1.00 CD:127 Normal [facility] Reportson 10-16-2022 Lab Reports [id number]#1.0 0CD:127 Normal [facility] Lab Reports [id number]#1.0 0CD:127 Normal [facility] Lab Reports [id number]#1.00 CD:127 Normal [facility] Lab Reports [id number]#1.00 CD:127 Normal [facility] Outside Colonoscopyon 2022 Outside Colonoscopy [id number]#1.00 CD:127 Normal [facility] Consultation Noteon 10-13-19 Consultation Note [id number] 0CD:127 Normal [facility] Consultation Note [id number]#1.00 CD:127 Normal [facility] Lab Reportson 10-12-2022 Lab Reports [id number]#1.00 CD:127 Normal [facility] Office Visiton 09-22-2022 Follow-up visit [id number] Percy Kaplan 1945 F Date Provider Department Center 09/22/2022 367-JOLENE CARR EDEN Ge Family History Problem Relation Age of Onset Aortic stenosis Father Other Father Family Status - Relation Status Age at Father Level of Service:69053 MS OFFICE/OUTPATIENT ESTABLISHED MOD MDM 30-39 MIN Reason for Visit and Comments: Follow-up [584648] - Patient is here today per Dr burnett request Valve Disorder [3372] [facility] 36on 08-14-2022 36 Pt called in requesting a refill [facility] Office Visiton 07-17-2022 Follow-up visit [id number] Che 1945 F Date Provider Department Center 07/17/2022 3848-DEN BURNETT EDEN Ge Family History Problem Relation Age of Onset Aortic stenosis Father Other Father Family Status - Relation Status Age at Father Level of Service:79015 MS OFFICE/OUTPATIENT ESTABLISHED LOW MDM 20-[address] [facility] CBC AUTO DIFFon 05-01-2022 BASO # 0.1 103/ul Normal 0.0-0.1 [facility] Comment on above: Performed By: #### C BC ####[facility] [address] [place] [address]Dr. Mainecatherine Dominguez Basophils/100 WBC (Bld) 0.8 % Normal 0.2-2.0 [facility] Comment on above: Performed By: #### C BC ####[facility] [address] [place], [place] [address]Dr. Sugey Dominguez EO # 0.2 103/ul Normal 0.0-0.7 [facility] Comment on above: Performed By: #### C BC ####[facility] [address] [place] [address]Dr. Sugey Dominguez Eosinophils/100 WBC (Bld) 3.5 % Normal 0.9-7.0 [facility] Comment on above: Performed By: #### C BC ####[facility] [address] [place] [address]Dr. Sugey Dominguez Erythrocyte distribution width (RBC) [Ratio] 13.6 % Normal 11.0-15.0 [facility] Comment on above: Performed By: #### C BC ####[facility] [address] [place] [address]Dr. Sugey Domignuez Hematocrit (Bld) [Volume fraction] 40.7 % Normal 36.0-48.0 [facility] Comment on above: Performed By: #### C BC ####[facility] [address] [place] [address]Dr. Sugey Dominguez Hemoglobin (Bld) [Mass/Vol] 13.5 g/dL Normal 12.0-16.0 [facility] Comment on above: Performed By: #### C BC ####[facility] [address] [place], [place] [address]Dr. Sugey Dominguez IG # 0.03 10e3/ul Normal 0.00-0.03 [facility] Comment on above: Performed By: #### C BC ####[facility] [address] [place] [id number]. Sugey Dominguez IG % 0.5 % Normal 0.0-0.5 [facility] Comment on above: Performed By: #### C BC ####[facility] Qz[address]bvtp28[address] [place] [id number]. Sugey Dominguez LYMPH # 1.5 103/ul Normal 1.2-3.8 [facility] Comment on above: Performed By: #### C BC ####[facility] [address] [place] [id number]. Sugey Dominguez Lymphocytes/100 WBC (Bld) 23.1 % Normal 20.5-60.0 [facility] Comment on above: Performed By: #### C BC ####[facility] R[address] [place] [id number]. Sugey Dominguez MANUAL DIFF REQ NO Normal [facility] Comment on above: Performed By: #### C BC ####[facility] Ugvbjcfjwl022[address] [place] [id number]. Sugey Dominguez MCH (RBC) [Entitic mass] 30.8 pg Normal 26.7-34.0 [facility] Comment on above: Performed By: #### C BC ####[facility] Z[address]obsnebp36[address] [place] [id number]. Sugey Dominguez MCHC (RBC) [Mass/Vol] 33.2 g/dL Normal 29.9-35.2 [facility] Comment on above: Performed By: #### C BC ####[facility] [address] [place], [place] [address]Dr. Sugey Dominguez MCV (RBC) [Entitic vol] 92.7 fL Normal 81.0-99.0 [facility] Comment on above: Performed By: #### C BC ####[facility] A[address]rre[address] [place] [id number]. Sugey Alberto MONO # 0.4 103/ul Normal 0.3-0.8 [facility] Comment on above: Performed By: #### C BC ####[facility] Lfj[address]ptg[address]24[address] [place] [id number]. Sugey Dominguez Monocytes/100 WBC (Bld) 6.8 % Normal 1.7-12.0 [facility] Comment on above: Performed By: #### C BC ####[facility] Ezbqfwaixz26[address] [place] [id number]. Sugey Dominguez NEUT # 4.2 103/ul Normal 1.4-6.5 [facility] Comment on above: Performed By: #### C BC ####[facility] Ohpfygewdc60[address] [place] [id number]. Sugey Dominguez Neutrophils/100 WBC (Bld) 65.3 % Normal 43.0-75.0 [facility] Comment on above: Performed By: #### C BC ####[facility] Dcgafx[address]ntq1233 [place] [id number]. Sugey Dominguez Platelet mean volume (Bld) [Entitic vol] 10.1 fL Normal 9.5-13.5 [facility] Comment on above: Performed By: #### C BC ####[facility] Eqgtdlxanh3[address] [place] [id number]. Sugey Dominguez PLT 166 103/ul Normal 150-450 [facility] Comment on above: Performed By: #### C BC ####[facility] Vgt[address]ngopd7[address] [place] [id number]. Sugey Dominguez RBC 4.39 106/ul Normal 4.20-5.40 [facility] Comment on above: Performed By: #### C BC ####[facility] Aibelzhtnv[address] [place] [id number]. Sugey Dominguez WBC 6.4 103/ul Normal 4.0-11.0 [facility] Comment on above: Performed By: #### C BC ####[facility] Lt[address]ir[address] [place] [id number]. Sugey Dominguez FREE T3on 05-01-2022 FREE T3 1.80 pg/mlL Critically low 2.18-3.98 [facility] Comment on above: Performed By: #### L IPID, FT3, TSH, LIVER, BMP #### [facility] Laboratory [address] [place] [address] [address] Sugey Dominguez FREE T4on 05-01-2022 Free T4 [Mass/Vol] 1.40 ng/dL Normal 0.76-1.46 [facility] Comment on above: Performed By: #### F T4 #### [facility] Laboratory [address] [place] [address] [address] Sugey Dominguez GLYCOHEMOGLOBIN A1Con 2022 ADA RECOMMENDATION SEE BELOW Normal [facility] Comment on above: Result Comment: ADA RECOMMENDED LIMIT 4.0 - 6.0 ADA THERAPEUTIC TARGET < 7.0 ACTION SUGGESTED > 7.0 Performed By: #### A 1C #### [facility] Laboratory [address] [place] [address] Dr. Sugey Dominguez Glucose [Mass/Vol] 174 mg/dL Normal [facility] Comment on above: Performed By: #### A 1C #### [facility] Laboratory [address] [place] [address] Dr. Sugey Dominguez HbA1c (Bld) [Mass fraction] 7.7 % Critically high 4.5-6.2 [facility] Comment on above: Performed By: #### A 1C #### [facility] Laboratory [address] [place] [address] Dr. Sugey Dominguez LIPID PROFILEon 05-01-2022 CHOL-HDL RATIO NORM SEE BELOW Normal [facility] Comment on above: Result Comment: 3.3 - 4.4 LOW RISK 4.4 - 7.1 AVERAGE RISK 7.1 - 11.0 MODERATE RISK >11.0 HIGH RISK Performed By: #### L IPID, FT3, TSH, LIVER, BMP #### [facility] Laboratory [address] [address] [address] Sugey Dominguez Cholesterol [Mass/Vol] 176 mg/dL Normal <=200 [facility] Comment on above: Performed By: #### L IPID, FT3, TSH, LIVER, BMP #### [facility] Laboratory [address] [address] [address] Sugey Dominguez Cholesterol in HDL [Mass/Vol] 48 mg/dL Normal 40-60 [facility] Comment on above: Performed By: #### L IPID, FT3, TSH, LIVER, BMP #### [facility] Laboratory [address] [address] [address] Sugey Dominguez Cholesterol in LDL [Mass/Vol] 80.4 mg/dL Normal [facility] Comment on above: Performed By: #### L IPID, FT3, TSH, LIVER, BMP #### [facility] Laboratory [address] [address] [address] Sugey Dominguez Cholesterol.total/Chol esterol in HDL [Mass ratio] 3.7 {ratio} Normal [facility] Comment on above: Performed By: #### L IPID, FT3, TSH, LIVER, BMP #### [facility] Laboratory [address] [place] [address] Dr. Sugey Dominguez HDL NORMAL > or = 60 mg/dl - LO W CARDIOVASCULAR RISK <40 mg/dl - HIGH CARDIOVASCULAR RISK Normal [facility] Comment on above: Performed By: #### L IPID, FT3, TSH, LIVER, BMP #### [facility] Laboratory [address] [place] [address] Dr. Sugey Dominguez LDL CALC NORMAL SEE BELOW Normal [facility] Comment on above: Result Comment: <100 mg/dl OPTIMAL 100 - 129 mg/dl NEAR OR ABOVE OPTIMAL 130 - 159 mg/dl BORDERLINE HIGH 160 - 189 mg/dl HIGH >190 mg/dl VERY HIGH Performed By: #### L IPID, FT3, TSH, LIVER, BMP #### [facility] Laboratory [address] [address] [address] Sugey Dominguez Triglyceride [Mass/Vol] 238 mg/dL Critically high <=150 [facility] Comment on above: Performed By: #### L IPID, FT3, TSH, LIVER, BMP #### [facility] Laboratory [address] [place] [address] Dr. Sugey Dominguez VLDL CALC 47.6 mg/dL Normal [facility] Comment on above: Performed By: #### L IPID, FT3, TSH, LIVER, BMP #### [facility] Laboratory [address] [place] [address] Dr. Sugey Dominguez LIVER PROFILEon 05-01-2022 Albumin [Mass/Vol] 3.8 g/dL Normal 3.4-5.0 [facility] Comment on above: Performed By: #### L IPID, FT3, TSH, LIVER, BMP #### [facility] Laboratory [address] [place] [address] Dr. Sugey Dominguez Albumin/Globulin [Mass ratio] 0.9 {ratio} Normal [facility] Comment on above: Performed By: #### L IPID, FT3, TSH, LIVER, BMP #### [facility] Laboratory [address] [place] [address] Dr. Sugey Dominguez ALP [Catalytic activity/Vol] 81 U/L Normal 46-116 [facility] Comment on above: Performed By: #### L IPID, FT3, TSH, LIVER, BMP #### [facility] Laboratory [address] [place] [address] Dr. Sugey Dominguez ALT [Catalytic activity/Vol] 23 U/L Normal 14-59 [facility] Comment on above: Performed By: #### L IPID, FT3, TSH, LIVER, BMP #### [facility] Laboratory [address] [place] [address] Dr. Sugey Dominguez AST [Catalytic activity/Vol] 15 U/L Normal 15-37 [facility] Comment on above: Performed By: #### L IPID, FT3, TSH, LIVER, BMP #### [facility] Laboratory [address] [place] [address] Dr. Sugey Dominguez BILI, CONJUGATED 0.2 mg/dL Normal 0.0-0.[address] [facility] Comment on above: Performed By: #### L IPID, FT3, TSH, LIVER, BMP #### [facility] Laboratory [address] [place] [address] Dr. Sugey Dominguez Bilirubin [Mass/Vol] 0.6 mg/dL Normal 0.2-1.0 [facility] Comment on above: Performed By: #### L IPID, FT3, TSH, LIVER, BMP #### [facility] Laboratory [address] [place] [address] Dr. Sugey Dominguez Globulin (S) [Mass/Vol] 4.0 g/dL Normal [facility] Comment on above: Performed By: #### L IPID, FT3, TSH, LIVER, BMP #### [facility] Laboratory [address] [place] [address] Dr. Sugey Dominguez Protein [Mass/Vol] 7.8 g/dL Normal 6.4-8.2 [facility] Comment on above: Performed By: #### L IPID, FT3, TSH, LIVER, BMP #### [facility] Laboratory [address] [place] [address] Dr. Sugey Dominguez MICROALBUMIN, RAND URon 03- mALB <1.3 Normal <=30.0 [facility] Comment on above: Performed By: #### M ALBR #### [facility] Laboratory [address] [place] [address] Dr. Sugey Dominguez PROF CHEM 8 (BAS METB)on Anion gap [Moles/Vol] 12.9 mmol/L Normal [facility] Comment on above: Performed By: #### L IPID, FT3, TSH, LIVER, BMP #### [facility] Laboratory [address] [place] [address] Dr. Sugey Dominguez Calcium [Mass/Vol] 9.6 mg/dL Normal 8.5-10.1 [facility] Comment on above: Performed By: #### L IPID, FT3, TSH, LIVER, BMP #### [facility] Laboratory [address] [place] [address] Dr. Sugey Dominguez Chloride [Moles/Vol] 96 mmol/L Critically low 98-107 [facility] Comment on above: Performed By: #### L IPID, FT3, TSH, LIVER, BMP #### [facility] Laboratory [address] [place] [address] Dr. Sugey Dominguez CO2 [Moles/Vol] 30.8 mmol/L Normal 21.0-32.[address] [facility] Comment on above: Performed By: #### L IPID, FT3, TSH, LIVER, BMP #### [facility] Laboratory [address] [address] [address] Sugey Dominguez Creatinine [Mass/Vol] 1.74 mg/dL Critically high 0.55-1.02 [facility] Comment on above: Performed By: #### L IPID, FT3, TSH, LIVER, BMP #### [facility] Laboratory [address] [place] [address] [address] Sugey Dominguez EGFR-AF ISRAELI 35 mL/min/1.73m2 Critically low >=60 [facility] Comment on above: Performed By: #### L IPID, FT3, TSH, LIVER, BMP #### [facility] Laboratory [address] [address] [address] Sugey Dominguez EGFR-NON AF ISRAELI 29 mL/min/1.73m2 Critically low >=60 [facility] Comment on above: Performed By: #### L IPID, FT3, TSH, LIVER, BMP #### [facility] Laboratory [address] [place] [address] Dr. Sugey Dominguez Glucose [Mass/Vol] 195 mg/dL Critically high 74-106 [facility] Comment on above: Performed By: #### L IPID, FT3, TSH, LIVER, BMP #### [facility] Laboratory [address] [place] [address] Dr. Sugey Dominguez Potassium [Moles/Vol] 4.7 mmol/L Normal 3.5-5.1 [facility] Comment on above: Performed By: #### L IPID, FT3, TSH, LIVER, BMP #### [facility] Laboratory [address] [address] [address] Sugey Dominguez Sodium [Moles/Vol] 135 mmol/L Critically low 136-145 [facility] Comment on above: Performed By: #### L IPID, FT3, TSH, LIVER, BMP #### [facility] Laboratory [address] [place] [address] Dr. Sugey Dominguez Urea nitrogen [Mass/Vol] 47.0 mg/dL Critically high 7.0-18.0 [facility] Comment on above: Performed By: #### L IPID, FT3, TSH, LIVER, BMP #### [facility] Laboratory [address] [address] [address] Sugey Dominguez Urea nitrogen/Creatinine [Mass ratio] 27.0 mg/mg Normal [facility] Comment on above: Performed By: #### L IPID, FT3, TSH, LIVER, BMP #### [facility] Laboratory [address] [address] [address] Sugey Dominguez TSHon 05-01-2022 TSH 4.093 uIU/mL Critically high 0.358-3.740 [facility] Comment on above: Performed By: #### L IPID, FT3, TSH, LIVER, BMP #### [facility] Laboratory [address] [address] [address] Sugey Dominguez GLYCOHEMOGLOBIN A1Con 2021 ADA RECOMMENDATION SEE BELOW Normal [facility] Comment on above: Result Comment: ADA RECOMMENDED LIMIT 4.0 - 6.0 ADA THERAPEUTIC TARGET < 7.0 ACTION SUGGESTED > 7.0 Performed By: #### A 1C ####[facility] [address] [place] [address]Dr. Sugey Dominguez Glucose [Mass/Vol] 183 mg/dL Normal [facility] Comment on above: Performed By: #### A 1C ####[facility] [address] [place] [address]Dr. Sugey Dominguez HbA1c (Bld) [Mass fraction] 8.0 % Critically high 4.5-6.2 [facility] Comment on above: Performed By: #### A 1C ####[facility] [address] [place] [address]Dr. Sugey Dominguez BASIC METABOLIC PANELon 03-08 Calcium mass conc 9.2 mg/dL Normal 8.6-10.[address] [facility] Comment on above: Order Comment: No: D o not add to previous draw Performed By: #### 3 0690 #### [facility] [address] [place] [address], [facility] Chloride molar conc 96 mmol/L Low 98-[address] [facility] Comment on above: Order Comment: No: D o not add to previous draw Performed By: #### 3 5200 #### [facility] [address] [place] [address], [place] CO2 molar conc 27 mmol/L Normal 21-[address] [facility] Comment on above: Order Comment: No: D o not add to previous draw Performed By: #### 3 5200 #### [facility] [address] [place] [address], [place] Creatinine mass conc 0.70 mg/dL Normal 0.60-1.[address] [facility] Comment on above: Order Comment: No: D o not add to previous draw Performed By: #### 3 5200 #### [facility] [address] [place] [address], [place] GFR/1.73 sq M predicted among blacks MDRD vol rate/area (S/P/Bld) mL/min/{1.73_m2} Normal >[address] [facility] Comment on above: Order Comment: No: D o not add to previous draw Result Comment: Calc ulation may not be valid for patients over 70 years Performed By: #### 3 5200 #### [facility] [address] [place] [address], [place] GFR/1.73 sq M predicted among non-blacks MDRD vol rate/area (S/P/Bld) mL/min/{1.73_m2} Normal >[address] [facility] Comment on above: Order Comment: No: D o not add to previous draw Result Comment: Calc ulation may not be valid for patients over 70 years Performed By: #### 3 5200 #### [facility] [address] [place] [address], [place] Glucose mass conc 210 mg/dL High 70-[address] [facility] Comment on above: Order Comment: No: D o not add to previous draw Performed By: #### 3 5200 #### [facility] [address] [place] [address], [place] Potassium molar conc 4.0 mmol/L Normal 3.5-5.[address] [facility] Comment on above: Order Comment: No: D o not add to previous draw Performed By: #### 3 5200 #### [facility] [address] Sodium molar conc 133 mmol/L Low 136-[address] [facility] Comment on above: Order Comment: No: D o not add to previous draw Performed By: #### 3 5200 #### [facility] [address] Urea nitrogen mass conc 20 mg/dL Normal 7-[address] [facility] Comment on above: Order Comment: No: D o not add to previous draw Performed By: #### 3 5200 #### [facility] [address] CBC W/DIFFon 03-24-2018 ABS BASOPHILS 0.1 10*3/uL Normal 0.0-0.[address] [facility] Comment on above: Order Comment: No: D o not add to previous draw Performed By: #### 3 5200 #### [facility] [address] ABS IMM GRANS 0.1 10*3/uL Normal 0.0-0.[address] [facility] Comment on above: Order Comment: No: D o not add to previous draw Performed By: #### 3 5200 #### [facility] [address] ABS NEUTROPHILS 4.7 10*3/uL Normal 1.6-7.[address] [facility] Comment on above: Order Comment: No: D o not add to previous draw Performed By: #### 3 5200 #### [facility] [address] Basophils #/vol (Bld) 1.1 % High 0.0-1.[address] [facility] Comment on above: Order Comment: No: D o not add to previous draw Performed By: #### 3 5200 #### [facility] [address] [place] [address], [facility] Eosinophils #/vol (Bld) 0.3 10*3/uL Normal 0.0-0.[address] [facility] Comment on above: Order Comment: No: D o not add to previous draw Performed By: #### 3 5200 #### [facility] [address] [place] [address], [facility] Eosinophils/100 WBC (Bld) 3.3 % Normal 0.0-6.[address] [facility] Comment on above: Order Comment: No: D o not add to previous draw Performed By: #### 3 5200 #### [facility] [address] [place] [address], [facility] Erythrocyte distribution width Ratio (RBC) 16.2 % High 11.5-15.[address] [facility] Comment on above: Order Comment: No: D o not add to previous draw Performed By: #### 3 5200 #### [facility] [address] [place] [address], [facility] Hematocrit Volume Fraction (Bld) 42.5 % Normal 36.0-45.[address] [facility] Comment on above: Order Comment: No: D o not add to previous draw Performed By: #### 3 5200 #### [facility] [address] [place] [address], [facility] Hemoglobin mass conc (Bld) 13.7 g/dL Normal 12.0-15.[address] [facility] Comment on above: Order Comment: No: D o not add to previous draw Performed By: #### 3 5200 #### [facility] [address] [place] [id number], [facility] IMMATURE GRANS 0.8 % Normal 0.0-1.[address] [facility] Comment on above: Order Comment: No: D o not add to previous draw Performed By: #### 3 5200 #### [facility] [address] [place] [address], [facility] Lymphocytes #/vol (Bld) 1.7 10*3/uL Normal 1.2-4.[address] [facility] Comment on above: Order Comment: No: D o not add to previous draw Performed By: #### 3 5200 #### [facility] [address] [place] [address], [facility] Lymphocytes/100 WBC (Bld) 22.1 % Normal 20.0-45.[address] [facility] Comment on above: Order Comment: No: D o not add to previous draw Performed By: #### 3 5200 #### [facility] [address] [place] [address], [facility] MCH Entitic mass (RBC) 30.0 pg Normal 27.0-33.[address] [facility] Comment on above: Order Comment: No: D o not add to previous draw Performed By: #### 3 5200 #### [facility] [address] [place] [address], [facility] MCHC mass conc (RBC) 32.2 g/dL Normal 32.0-35.[address] [facility] Comment on above: Order Comment: No: D o not add to previous draw Performed By: #### 3 5200 #### [facility] [address] [place] [address], [facility] MCV Entitic volume (RBC) 93.2 fL Normal 82.0-98.[address] [facility] Comment on above: Order Comment: No: D o not add to previous draw Performed By: #### 3 5200 #### [facility] [address] [place] [address], [facility] Monocytes #/vol (Bld) 0.7 10*3/uL Normal 0.1-1.[address] [facility] Comment on above: Order Comment: No: D o not add to previous draw Performed By: #### 3 5200 #### [facility] [address] [place] [address], [place] MONOS 9.8 % Normal 5.0-12.[address] [facility] Comment on above: Order Comment: No: D o not add to previous draw Performed By: #### 3 5200 #### [facility] [address] [place] [address], [place] Neutrophils/100 WBC (Bld) 62.9 % Normal 40.0-72.[address] [facility] Comment on above: Order Comment: No: D o not add to previous draw Performed By: #### 3 5200 #### [facility] [address] [place] [address], [facility] Nucleated RBC/100 WBC Ratio (Bld) 0 % Normal 0-[address] [facility] Comment on above: Order Comment: No: D o not add to previous draw Performed By: #### 3 5200 #### [facility] [address] [place] [address], [place] PLAT CNT 188 10*3/uL Normal 150-[address] [facility] Comment on above: Order Comment: No: D o not add to previous draw Performed By: #### 3 5200 #### [facility] [address] [place] [address], [facility] RBC #/vol (Bld) 4.56 10*6/uL Normal 3.80-5.[address] [facility] Comment on above: Order Comment: No: D o not add to previous draw Performed By: #### 3 5200 #### [facility] [address] [place] [address], [place] WBC #/vol (Bld) 7.48 10*3/uL Normal 4.00-10.[address] [facility] Comment on above: Order Comment: No: D o not add to previous draw Performed By: #### 3 5200 #### [facility] [address] [place] [address], [place] POC GLUCOSE LABon 03-24-2018 Glucose mass conc 241 mg/dL High 70-[address] [facility] Comment on above: Performed By: #### 3 5200 #### [facility] [address] [place] [address], [facility] Glucose mass conc 189 mg/dL High 70-[address] [facility] Comment on above: Performed By: #### 3 5200 #### [facility] [address] [place] [address], [facility] BASIC METABOLIC PANELon 03-08 Calcium mass conc 9.1 mg/dL Normal 8.6-10.[address] [facility] Comment on above: Order Comment: No: D o not add to previous draw Performed By: #### 3 5200 #### [facility] [address] [place] [address], [facility] Chloride molar conc 95 mmol/L Low 98-[address] [facility] Comment on above: Order Comment: No: D o not add to previous draw Performed By: #### 3 5200 #### [facility] [address] [place] [address], [facility] CO2 molar conc 32 mmol/L High 21-[address] [facility] Comment on above: Order Comment: No: D o not add to previous draw Performed By: #### 3 5200 #### [facility] [address] [place] [address], [facility] Creatinine mass conc 0.71 mg/dL Normal 0.60-1.[address] [facility] Comment on above: Order Comment: No: D o not add to previous draw Performed By: #### 3 5200 #### [facility] [address] [place] [address], [facility] GFR/1.73 sq M predicted among blacks MDRD vol rate/area (S/P/Bld) mL/min/{1.73_m2} Normal >[address] [facility] Comment on above: Order Comment: No: D o not add to previous draw Result Comment: Calc ulation may not be valid for patients over 70 years Performed By: #### 3 5200 #### [facility] [address] [place] [address], [facility] GFR/1.73 sq M predicted among non-blacks MDRD vol rate/area (S/P/Bld) mL/min/{1.73_m2} Normal >[address] [facility] Comment on above: Order Comment: No: D o not add to previous draw Result Comment: Calc ulation may not be valid for patients over 70 years Performed By: #### 3 5200 #### [facility] [address] [place] [address], [facility] Glucose mass conc 189 mg/dL High 70-[address] [facility] Comment on above: Order Comment: No: D o not add to previous draw Performed By: #### 3 5200 #### [facility] [address] [place] [address], [facility] Potassium molar conc 3.7 mmol/L Normal 3.5-5.[address] [facility] Comment on above: Order Comment: No: D o not add to previous draw Performed By: #### 3 5200 #### [facility] [address] [place] [address], [place] Sodium molar conc 134 mmol/L Low 136-[address] [facility] Comment on above: Order Comment: No: D o not add to previous draw Performed By: #### 3 5200 #### [facility] [address] [place] [address], [facility] Urea nitrogen mass conc 19 mg/dL Normal 7-[address] [facility] Comment on above: Order Comment: No: D o not add to previous draw Performed By: #### 3 5200 #### [facility] [address] [place] [address], [facility] CBC COMPLETE BLOOD COUNTon 0 - Erythrocyte distribution width Ratio (RBC) 16.2 % High 11.5-15.[address] [facility] Comment on above: Order Comment: No: D o not add to previous draw Performed By: #### 3 5200 #### [facility] [address] [place] [address], [facility] Hematocrit Volume Fraction (Bld) 42.5 % Normal 36.0-45.[address] [facility] Comment on above: Order Comment: No: D o not add to previous draw Performed By: #### 3 5200 #### [facility] [address] [place] [address], [facility] Hemoglobin mass conc (Bld) 13.6 g/dL Normal 12.0-15.[address] [facility] Comment on above: Order Comment: No: D o not add to previous draw Performed By: #### 3 5200 #### [facility] [address] [place] [address], [facility] MCH Entitic mass (RBC) 29.9 pg Normal 27.0-33.[address] [facility] Comment on above: Order Comment: No: D o not add to previous draw Performed By: #### 3 5200 #### [facility] [address] [place] [address], [facility] MCHC mass conc (RBC) 32.0 g/dL Normal 32.0-35.[address] [facility] Comment on above: Order Comment: No: D o not add to previous draw Performed By: #### 3 5200 #### [facility] [address] [facility] [place] [address], [facility] MCV Entitic volume (RBC) 93.4 fL Normal 82.0-98.[address] [facility] Comment on above: Order Comment: No: D o not add to previous draw Performed By: #### 3 5200 #### [facility] [address] [place] [address], [facility] Nucleated RBC/100 WBC Ratio (Bld) 0 % Normal 0-[address] [facility] Comment on above: Order Comment: No: D o not add to previous draw Performed By: #### 3 5200 #### [facility] [address] [place] [address], [place] PLAT CNT 198 10*3/uL Normal 150-[address] [facility] Comment on above: Order Comment: No: D o not add to previous draw Performed By: #### 3 5200 #### [facility] [address] [place] [address], [place] RBC #/vol (Bld) 4.55 10*6/uL Normal 3.80-5.[address] [facility] Comment on above: Order Comment: No: D o not add to previous draw Performed By: #### 3 5200 #### [facility] [address] [place] [address], [place] WBC #/vol (Bld) 7.49 10*3/uL Normal 4.00-10.[address] [facility] Comment on above: Order Comment: No: D o not add to previous draw Performed By: #### 3 5200 #### [facility] [address] [place] [address], [place] POC GLUCOSE LABon 03-23-2018 Glucose mass conc 178 mg/dL High 70-[address] [facility] Comment on above: Performed By: #### 3 5200 #### [facility] [address] [place] [address], [place] Glucose mass conc 163 mg/dL High 70-[address] [facility] Comment on above: Performed By: #### 3 5200 #### [facility] [address] [place] [address], [place] Glucose mass conc 194 mg/dL High 70-[address] [facility] Comment on above: Performed By: #### 3 5200 #### [facility] [address] [place] [address], [place] Glucose mass conc 164 mg/dL High 70-[address] [facility] Comment on above: Performed By: #### 3 5200 #### [facility] [address] [place] [address], [facility] BASIC METABOLIC PANELon 03-08 Calcium mass conc 9.0 mg/dL Normal 8.6-10.[address] [facility] Comment on above: Order Comment: No: D o not add to previous draw Performed By: #### 3 5200 #### [facility] [address] [place] [address], [place] Chloride molar conc 95 mmol/L Low 98-[address] [facility] Comment on above: Order Comment: No: D o not add to previous draw Performed By: #### 3 5200 #### [facility] [address] [place] [address], [place] CO2 molar conc 36 mmol/L High 21-[address] [facility] Comment on above: Order Comment: No: D o not add to previous draw Performed By: #### 3 5200 #### [facility] [address] [place] [address], [place] Creatinine mass conc 0.61 mg/dL Normal 0.60-1.[address] [facility] Comment on above: Order Comment: No: D o not add to previous draw Performed By: #### 3 5200 #### [facility] [address] [place] [address], [place] GFR/1.73 sq M predicted among blacks MDRD vol rate/area (S/P/Bld) mL/min/{1.73_m2} Normal >[address] [facility] Comment on above: Order Comment: No: D o not add to previous draw Result Comment: Calc ulation may not be valid for patients over 70 years Performed By: #### 3 5200 #### [facility] [address] [place] [address], [place] GFR/1.73 sq M predicted among non-blacks MDRD vol rate/area (S/P/Bld) mL/min/{1.73_m2} Normal >[address] [facility] Comment on above: Order Comment: No: D o not add to previous draw Result Comment: Calc ulation may not be valid for patients over 70 years Performed By: #### 3 5200 #### [facility] [address] [place] [address], [facility] Glucose mass conc 152 mg/dL High 70-[address] [facility] Comment on above: Order Comment: No: D o not add to previous draw Performed By: #### 3 5200 #### [facility] [address] [place] [address], [facility] Potassium molar conc 3.5 mmol/L Normal 3.5-5.[address] [facility] Comment on above: Order Comment: No: D o not add to previous draw Performed By: #### 3 5200 #### [facility] [address] [place] [address], [facility] Sodium molar conc 137 mmol/L Normal 136-[address] [facility] Comment on above: Order Comment: No: D o not add to previous draw Performed By: #### 3 5200 #### [facility] [address] [place] [address], [facility] Urea nitrogen mass conc 17 mg/dL Normal 7-[address] [facility] Comment on above: Order Comment: No: D o not add to previous draw Performed By: #### 3 5200 #### [facility] [address] [place] [address], [facility] CBC COMPLETE BLOOD COUNTon 0 - Erythrocyte distribution width Ratio (RBC) 16.2 % High 11.5-15.[address] [facility] Comment on above: Order Comment: No: D o not add to previous draw Performed By: #### 3 5200 #### [facility] [address] [place] [address], [facility] Hematocrit Volume Fraction (Bld) 42.6 % Normal 36.0-45.[address] [facility] Comment on above: Order Comment: No: D o not add to previous draw Performed By: #### 3 5200 #### [facility] [address] [place] [address], [facility] Hemoglobin mass conc (Bld) 13.4 g/dL Normal 12.0-15.[address] [facility] Comment on above: Order Comment: No: D o not add to previous draw Performed By: #### 3 5200 #### [facility] [address] [place] [address], [facility] MCH Entitic mass (RBC) 29.4 pg Normal 27.0-33.[address] [facility] Comment on above: Order Comment: No: D o not add to previous draw Performed By: #### 3 5200 #### [facility] [address] [place] [address], [facility] MCHC mass conc (RBC) 31.5 g/dL Low 32.0-35.[address] [facility] Comment on above: Order Comment: No: D o not add to previous draw Performed By: #### 3 5200 #### [facility] [address] [facility] [place] [address], [facility] MCV Entitic volume (RBC) 93.4 fL Normal 82.0-98.[address] [facility] Comment on above: Order Comment: No: D o not add to previous draw Performed By: #### 3 5200 #### [facility] [address] [facility] [place] [address], [facility] Nucleated RBC/100 WBC Ratio (Bld) 0 % Normal 0-[address] [facility] Comment on above: Order Comment: No: D o not add to previous draw Performed By: #### 3 5200 #### [facility] [address] [place] [address], [facility] PLAT CNT 197 10*3/uL Normal 150-[address] [facility] Comment on above: Order Comment: No: D o not add to previous draw Performed By: #### 3 5200 #### [facility] [address] [place] [id number], [facility] RBC #/vol (Bld) 4.56 10*6/uL Normal 3.80-5.[address] [facility] Comment on above: Order Comment: No: D o not add to previous draw Performed By: #### 3 5200 #### [facility] [address] [place] [address], [facility] WBC #/vol (Bld) 7.53 10*3/uL Normal 4.00-10.[address] [facility] Comment on above: Order Comment: No: D o not add to previous draw Performed By: #### 3 5200 #### [facility] [address] [facility] [place] [address], [facility] POC GLUCOSE LABon 03-22-2018 Glucose mass conc 187 mg/dL High 70-[address] [facility] Comment on above: Performed By: #### 3 5200 #### [facility] [address] [place] [address], [facility] Glucose mass conc 161 mg/dL High 70-[address] [facility] Comment on above: Performed By: #### 3 5200 #### [facility] [address] [facility] [place] [address], [facility] Glucose mass conc 226 mg/dL High 70-[address] [facility] Comment on above: Performed By: #### 3 5200 #### [facility] [address] [place] [address], [place] Glucose mass conc 175 mg/dL High 70-[address] [facility] Comment on above: Performed By: #### 3 5200 #### [facility] [address] [place] [address], [place] Glucose mass conc 148 mg/dL High 70-[address] [facility] Comment on above: Performed By: #### 3 5200 #### [facility] [address] [place] [address], [place] Glucose mass conc 191 mg/dL High 70-[address] [facility] Comment on above: Performed By: #### 5 610, 88865 #### [facility] [address] [place] [address], [place] BASIC METABOLIC PANELon 03-08 Calcium mass conc 9.1 mg/dL Normal 8.6-10.[address] [facility] Comment on above: Order Comment: No: D o not add to previous draw Performed By: #### 5 610, 27596 #### [facility] [address] [place] [address], [place] Chloride molar conc 95 mmol/L Low 98-[address] [facility] Comment on above: Order Comment: No: D o not add to previous draw Performed By: #### 5 610, 76098 #### [facility] [address] [place] [address], [place] CO2 molar conc 36 mmol/L High 21-[address] [facility] Comment on above: Order Comment: No: D o not add to previous draw Performed By: #### 5 610, 80892 #### [facility] [address] [place] [address], [facility] Creatinine mass conc 0.68 mg/dL Normal 0.60-1.[address] [facility] Comment on above: Order Comment: No: D o not add to previous draw Performed By: #### 5 610, 46873 #### [facility] [address] [place] [id number], [place] GFR/1.73 sq M predicted among blacks MDRD vol rate/area (S/P/Bld) mL/min/{1.73_m2} Normal >[address] [facility] Comment on above: Order Comment: No: D o not add to previous draw Result Comment: Calc ulation may not be valid for patients over 70 years Performed By: #### 5 610, 98934 #### [facility] [address] [place] [address], [place] GFR/1.73 sq M predicted among non-blacks MDRD vol rate/area (S/P/Bld) mL/min/{1.73_m2} Normal >[address] [facility] Comment on above: Order Comment: No: D o not add to previous draw Result Comment: Calc ulation may not be valid for patients over 70 years Performed By: #### 5 6101, 53567 #### [facility] [address] [place] [address], [place] Glucose mass conc 147 mg/dL High 70-[address] [facility] Comment on above: Order Comment: No: D o not add to previous draw Performed By: #### 5 610, 40014 #### [facility] [address] [place] [address], [place] Potassium molar conc 3.6 mmol/L Normal 3.5-5.[address] [facility] Comment on above: Order Comment: No: D o not add to previous draw Performed By: #### 5 610, 62531 #### [facility] [address] [place] [address], [place] Sodium molar conc 139 mmol/L Normal 136-[address] [facility] Comment on above: Order Comment: No: D o not add to previous draw Performed By: #### 5 610, 08102 #### [facility] [address] [place] [address], [place] Urea nitrogen mass conc 14 mg/dL Normal 7-[address] [facility] Comment on above: Order Comment: No: D o not add to previous draw Performed By: #### 5 610, 93670 #### [facility] [address] [place] [address], [place] CBC COMPLETE BLOOD COUNTon 0 - Erythrocyte distribution width Ratio (RBC) 16.2 % High 11.5-15.[address] [facility] Comment on above: Order Comment: No: D o not add to previous draw Performed By: #### 5 610, 13460 #### [facility] [address] Hematocrit Volume Fraction (Bld) 42.0 % Normal 36.0-45.[address] [facility] Comment on above: Order Comment: No: D o not add to previous draw Performed By: #### 5 610, 56758 #### [facility] [address] [place] [address], [facility] Hemoglobin mass conc (Bld) 13.5 g/dL Normal 12.0-15.[address] [facility] Comment on above: Order Comment: No: D o not add to previous draw Performed By: #### 5 610, 79551 #### [facility] [address] [facility] [place] [address], [facility] MCH Entitic mass (RBC) 30.0 pg Normal 27.0-33.[address] [facility] Comment on above: Order Comment: No: D o not add to previous draw Performed By: #### 5 6100, 20136 #### [facility] [address] [place] [address], [facility] MCHC mass conc (RBC) 32.1 g/dL Normal 32.0-35.[address] [facility] Comment on above: Order Comment: No: D o not add to previous draw Performed By: #### 5 610, 73180 #### [facility] [address] [place] [address], [facility] MCV Entitic volume (RBC) 93.3 fL Normal 82.0-98.[address] [facility] Comment on above: Order Comment: No: D o not add to previous draw Performed By: #### 5 610, 17422 #### [facility] [address] [place] [id number], [facility] Nucleated RBC/100 WBC Ratio (Bld) 0 % Normal 0-[address] [facility] Comment on above: Order Comment: No: D o not add to previous draw Performed By: #### 5 610, 98590 #### [facility] [address] [place] [address], [facility] PLAT CNT 196 10*3/uL Normal 150-[address] [facility] Comment on above: Order Comment: No: D o not add to previous draw Performed By: #### 5 610, 01607 #### [facility] [address] [place] [address], [facility] RBC #/vol (Bld) 4.50 10*6/uL Normal 3.80-5.[address] [facility] Comment on above: Order Comment: No: D o not add to previous draw Performed By: #### 5 610, 38074 #### [facility] [address] [place] [address], [facility] WBC #/vol (Bld) 7.89 10*3/uL Normal 4.00-10.[address] [facility] Comment on above: Order Comment: No: D o not add to previous draw Performed By: #### 5 610, 92175 #### [facility] [address] [place] [address], [facility] POC GLUCOSE LABon 03-21-2018 Glucose mass conc 174 mg/dL High 70-[address] [facility] Comment on above: Performed By: #### 5 610, 72069 #### [facility] [address] [place] [address], [facility] Glucose mass conc 129 mg/dL High 70-[address] [facility] Comment on above: Performed By: #### 5 610, 11871 #### [facility] [address] [place] [address], [facility] Glucose mass conc 280 mg/dL High 70-[address] [facility] Comment on above: Performed By: #### 5 6101, 38025 #### [facility] [address] [place] [address], [facility] BASIC METABOLIC PANELon 03-08 Calcium mass conc 9.2 mg/dL Normal 8.6-10.[address] [facility] Comment on above: Order Comment: No: D o not add to previous draw Performed By: #### 5 610, 25229 #### [facility] [address] [place] [address], [place] Chloride molar conc 96 mmol/L Low 98-[address] [facility] Comment on above: Order Comment: No: D o not add to previous draw Performed By: #### 5 610, 59335 #### [facility] [address] [place] [address], [place] CO2 molar conc 33 mmol/L High 21-[address] [facility] Comment on above: Order Comment: No: D o not add to previous draw Performed By: #### 5 610, 47012 #### [facility] [address] [place] [address], [place] Creatinine mass conc 0.69 mg/dL Normal 0.60-1.[address] [facility] Comment on above: Order Comment: No: D o not add to previous draw Performed By: #### 5 610, 71609 #### [facility] [address] [place] [address], [place] GFR/1.73 sq M predicted among blacks MDRD vol rate/area (S/P/Bld) mL/min/{1.73_m2} Normal >[address] [facility] Comment on above: Order Comment: No: D o not add to previous draw Result Comment: Calc ulation may not be valid for patients over 70 years Performed By: #### 5 610, 75480 #### [facility] [address] [place] [address], [place] GFR/1.73 sq M predicted among non-blacks MDRD vol rate/area (S/P/Bld) mL/min/{1.73_m2} Normal >[address] [facility] Comment on above: Order Comment: No: D o not add to previous draw Result Comment: Calc ulation may not be valid for patients over 70 years Performed By: #### 5 610, 83733 #### [facility] [address] [place] [address], [place] Glucose mass conc 134 mg/dL High 70-[address] [facility] Comment on above: Order Comment: No: D o not add to previous draw Performed By: #### 5 610, 96741 #### [facility] [address] [place] [address], [place] Potassium molar conc 4.1 mmol/L Normal 3.5-5.[address] [facility] Comment on above: Order Comment: No: D o not add to previous draw Performed By: #### 5 610, 82736 #### [facility] [address] [place] [address], [place] Sodium molar conc 137 mmol/L Normal 136-[address] [facility] Comment on above: Order Comment: No: D o not add to previous draw Performed By: #### 5 610, 86988 #### [facility] [address] [place] [address], [facility] Urea nitrogen mass conc 13 mg/dL Normal 7-[address] [facility] Comment on above: Order Comment: No: D o not add to previous draw Performed By: #### 5 610, 30191 #### [facility] [address] [place] [address], [place] MAGNESIUM BLOODon 03-20-2018 Magnesium mass conc 1.9 mg/dL Normal 1.9-2.[address] [facility] Comment on above: Order Comment: No: D o not add to previous draw Performed By: #### 5 610, 17839 #### [facility] [address] [place] [address], [place] POC GLUCOSE LABon 03-20-2018 Glucose mass conc 109 mg/dL High 70-[address] [facility] Comment on above: Performed By: #### 5 610, 81259 #### [facility] [address] [place] [address], [place] Glucose mass conc 194 mg/dL High 70-[address] [facility] Comment on above: Performed By: #### 5 610, 76204 #### [facility] [address] [place] [address], [facility] Glucose mass conc 119 mg/dL High 70-[address] [facility] Comment on above: Performed By: #### 5 610, 79821 #### [facility] [address] [place] [address], [facility] Glucose mass conc 203 mg/dL High 70-[address] [facility] Comment on above: Performed By: #### 5 610, 88130 #### [facility] [address] [place] [address], [facility] APTTon 03-19-2018 aPTT Coag time (Bld) 32.1 s Normal 25.0-35.[address] [facility] Comment on above: Order Comment: No: [...] THIS PURPOSE. Performed By: #### 5 610, 49268 #### [facility] [address] [facility] [address] BASIC METABOLIC PANELon 03-08 Calcium mass conc 9.2 mg/dL Normal 8.6-10.[address] [facility] Comment on above: Order Comment: No: D o not add to previous draw Performed By: #### 5 610, 37487 #### [facility] [address] [place] [address], [facility] Chloride molar conc 95 mmol/L Low 98-[address] [facility] Comment on above: Order Comment: No: D o not add to previous draw Performed By: #### 5 610, 57050 #### [facility] [address] [place] [address], [place] CO2 molar conc 34 mmol/L High 21-[address] [facility] Comment on above: Order Comment: No: D o not add to previous draw Performed By: #### 5 6101, 52607 #### [facility] [address] [place] [address], [place] Creatinine mass conc 0.55 mg/dL Low 0.60-1.[address] [facility] Comment on above: Order Comment: No: D o not add to previous draw Performed By: #### 5 6101, 73879 #### [facility] [address] [place] [address], [place] GFR/1.73 sq M predicted among blacks MDRD vol rate/area (S/P/Bld) mL/min/{1.73_m2} Normal >[address] [facility] Comment on above: Order Comment: No: D o not add to previous draw Result Comment: Calc ulation may not be valid for patients over 70 years Performed By: #### 5 610, 51387 #### [facility] [address] [place] [address], [place] GFR/1.73 sq M predicted among non-blacks MDRD vol rate/area (S/P/Bld) mL/min/{1.73_m2} Normal >[address] [facility] Comment on above: Order Comment: No: D o not add to previous draw Result Comment: Calc ulation may not be valid for patients over 70 years Performed By: #### 5 6101, 89611 #### [facility] [address] [place] [address], [place] Glucose mass conc 136 mg/dL High 70-[address] [facility] Comment on above: Order Comment: No: D o not add to previous draw Performed By: #### 5 6101, 03695 #### [facility] [address] [place] [address], [place] Potassium molar conc 3.4 mmol/L Low 3.5-5.[address] [facility] Comment on above: Order Comment: No: D o not add to previous draw Performed By: #### 5 6101, 68754 #### [facility] [address] [facility] Sodium molar conc 137 mmol/L Normal 136-[address] [facility] Comment on above: Order Comment: No: D o not add to previous draw Performed By: #### 5 610, 12730 #### [facility] [address] Urea nitrogen mass conc 11 mg/dL Normal 7-[address] [facility] Comment on above: Order Comment: No: D o not add to previous draw Performed By: #### 5 610, 68519 #### [facility] [address] CBC W/DIFFon 03-19-2018 ABS BASOPHILS 0.1 10*3/uL Normal 0.0-0.[address] [facility] Comment on above: Order Comment: No: D o not add to previous draw Performed By: #### 5 6101, 77013 #### [facility] [address] [facility]. [address] ABS IMM GRANS 0.1 10*3/uL Normal 0.0-0.[address] [facility] Comment on above: Order Comment: No: D o not add to previous draw Performed By: #### 5 6101, 42895 #### [facility] [address] [facility]. [address] ABS NEUTROPHILS 6.1 10*3/uL Normal 1.6-7.[address] [facility] Comment on above: Order Comment: No: D o not add to previous draw Performed By: #### 5 610, 63280 #### [facility] [address] [facility] Basophils #/vol (Bld) 0.8 % Normal 0.0-1.[address] [facility] Comment on above: Order Comment: No: D o not add to previous draw Performed By: #### 5 610, 74491 #### [facility] [address] [place] [address], [facility] Eosinophils #/vol (Bld) 0.2 10*3/uL Normal 0.0-0.[address] [facility] Comment on above: Order Comment: No: D o not add to previous draw Performed By: #### 5 6100, 47062 #### [facility] [address] [place] [address], [facility] Eosinophils/100 WBC (Bld) 1.9 % Normal 0.0-6.[address] [facility] Comment on above: Order Comment: No: D o not add to previous draw Performed By: #### 5 610, 51263 #### [facility] [address] [place] [address], [facility] Erythrocyte distribution width Ratio (RBC) 16.4 % High 11.5-15.[address] [facility] Comment on above: Order Comment: No: D o not add to previous draw Performed By: #### 5 6100, 38674 #### [facility] [address] [place] [id number], [facility] Hematocrit Volume Fraction (Bld) 43.7 % Normal 36.0-45.[address] [facility] Comment on above: Order Comment: No: D o not add to previous draw Performed By: #### 5 6100, 70603 #### [facility] [address] [place] [address], [facility] Hemoglobin mass conc (Bld) 14.0 g/dL Normal 12.0-15.[address] [facility] Comment on above: Order Comment: No: D o not add to previous draw Performed By: #### 5 610, 65274 #### [facility] [address] [place] [address], [facility] IMMATURE GRANS 0.7 % Normal 0.0-1.[address] [facility] Comment on above: Order Comment: No: D o not add to previous draw Performed By: #### 5 610, 15731 #### [facility] [address] [place] [address], [facility] Lymphocytes #/vol (Bld) 1.7 10*3/uL Normal 1.2-4.[address] [facility] Comment on above: Order Comment: No: D o not add to previous draw Performed By: #### 5 6100, 58528 #### [facility] [address] [place] [address], [facility] Lymphocytes/100 WBC (Bld) 19.1 % Low 20.0-45.[address] [facility] Comment on above: Order Comment: No: D o not add to previous draw Performed By: #### 5 610, 43259 #### [facility] [address] MCH Entitic mass (RBC) 29.5 pg Normal 27.0-33.[address] [facility] Comment on above: Order Comment: No: D o not add to previous draw Performed By: #### 5 6100, 53969 #### [facility] [address] [facility] [address] MCHC mass conc (RBC) 32.0 g/dL Normal 32.0-35.[address] [facility] Comment on above: Order Comment: No: D o not add to previous draw Performed By: #### 5 610, 94927 #### [facility] [address] [place] [address], [facility] MCV Entitic volume (RBC) 92.0 fL Normal 82.0-98.[address] [facility] Comment on above: Order Comment: No: D o not add to previous draw Performed By: #### 5 610, 77822 #### [facility] [address] [place] [address], [facility] Monocytes #/vol (Bld) 0.6 10*3/uL Normal 0.1-1.[address] [facility] Comment on above: Order Comment: No: D o not add to previous draw Performed By: #### 5 610, 72356 #### [facility] [address] [place] [address], [facility] MONOS 7.0 % Normal 5.0-12.[address] [facility] Comment on above: Order Comment: No: D o not add to previous draw Performed By: #### 5 610, 26168 #### [facility] [address] [place] [id number], [facility] Neutrophils/100 WBC (Bld) 70.5 % Normal 40.0-72.[address] [facility] Comment on above: Order Comment: No: D o not add to previous draw Performed By: #### 5 6100, 51251 #### [facility] [address] [place] [id number], [facility] Nucleated RBC/100 WBC Ratio (Bld) 0 % Normal 0-[address] [facility] Comment on above: Order Comment: No: D o not add to previous draw Performed By: #### 5 6100, 47882 #### [facility] [address] [place] [address], [facility] PLAT CNT 200 10*3/uL Normal 150-[address] [facility] Comment on above: Order Comment: No: D o not add to previous draw Performed By: #### 5 610, 24124 #### [facility] [address] [place] [id number], [facility] RBC #/vol (Bld) 4.75 10*6/uL Normal 3.80-5.[address] [facility] Comment on above: Order Comment: No: D o not add to previous draw Performed By: #### 5 610, 07237 #### [facility] [address] [place] [id number], [facility] WBC #/vol (Bld) 8.62 10*3/uL Normal 4.00-10.[address] [facility] Comment on above: Order Comment: No: D o not add to previous draw Performed By: #### 5 6101, 52322 #### [address] CHEST AND LATERALon 03-19-[address] [facility] Department of Radiology [address] [place] [id number] ======== Patient Name: PERCY KAPLAN : 1945 Sex: F Age: Race: White Pt. Location: [address] [place] [address] Patient Status: I Ordered Date: 03/19/2018 12:15:00 [...] cardiomegaly. Electronically signed by:Franklyn Nicolas. Transcribed by: [email or web address], User Resident: Electronically Signed by: FRANKLYN NICOLAS @ 03/19/2018 08:[address] [facility] Comment on above: Order Comment: No: D o not add to previous draw COMP METABOLIC PANELon 03-19 Albumin mass conc 3.3 g/dL Low 3.5-5.[address] [facility] Comment on above: Order Comment: No: D o not add to previous draw Performed By: #### 5 6101, 65067 #### [facility] [address] [place] [address], [place] ALKALINE PHOSPH 58 IU/L Normal 34-[address] [facility] Comment on above: Order Comment: No: D o not add to previous draw Performed By: #### 5 610, 28194 #### [facility] [address] [place] [address], [place] ALT enzyme act/vol 28 U/L Normal 7-[address] [facility] Comment on above: Order Comment: No: D o not add to previous draw Performed By: #### 5 6101, 29111 #### [facility] [address] [place] [address], [place] AST enzyme act/vol 22 U/L Normal 13-[address] [facility] Comment on above: Order Comment: No: D o not add to previous draw Performed By: #### 5 6101, 89455 #### [facility] [address] [place] [address], [place] Bilirubin mass conc 1.9 mg/dL High 0.3-1.[address] [facility] Comment on above: Order Comment: No: D o not add to previous draw Performed By: #### 5 6101, 92021 #### [facility] [address] [place] [address], [place] Calcium mass conc 9.0 mg/dL Normal 8.6-10.[address] [facility] Comment on above: Order Comment: No: D o not add to previous draw Performed By: #### 5 610, 49184 #### [facility] [address] [place] [address], [place] Chloride molar conc 94 mmol/L Low 98-[address] [facility] Comment on above: Order Comment: No: D o not add to previous draw Performed By: #### 5 610, 29449 #### [facility] [address] [place] [address], [place] CO2 molar conc 36 mmol/L High 21-[address] [facility] Comment on above: Order Comment: No: D o not add to previous draw Performed By: #### 5 610, 31461 #### [facility] [address] [place] [address], [place] Creatinine mass conc 0.61 mg/dL Normal 0.60-1.[address] [facility] Comment on above: Order Comment: No: D o not add to previous draw Performed By: #### 5 610, 27006 #### [facility] [address] [place] [address], [place] GFR/1.73 sq M predicted among blacks MDRD vol rate/area (S/P/Bld) mL/min/{1.73_m2} Normal >[address] [facility] Comment on above: Order Comment: No: D o not add to previous draw Result Comment: Calc ulation may not be valid for patients over 70 years Performed By: #### 5 610, 45793 #### [facility] [address] [place] [address], [place] GFR/1.73 sq M predicted among non-blacks MDRD vol rate/area (S/P/Bld) mL/min/{1.73_m2} Normal >[address] [facility] Comment on above: Order Comment: No: D o not add to previous draw Result Comment: Calc ulation may not be valid for patients over 70 years Performed By: #### 5 610, 13086 #### [facility] [address] [place] [address], [place] Glucose mass conc 210 mg/dL High 70-[address] [facility] Comment on above: Order Comment: No: D o not add to previous draw Performed By: #### 5 6101, 68015 #### [facility] [address] [place] [address], [place] Potassium molar conc 3.3 mmol/L Low 3.5-5.[address] [facility] Comment on above: Order Comment: No: D o not add to previous draw Performed By: #### 5 6101, 79308 #### [facility] [address] [place] [address], [place] Protein mass conc 6.3 g/dL Normal 6.0-8.[address] [facility] Comment on above: Order Comment: No: D o not add to previous draw Performed By: #### 5 6101, 52688 #### [facility] [address] [place] [address], [place] Sodium molar conc 137 mmol/L Normal 136-[address] [facility] Comment on above: Order Comment: No: D o not add to previous draw Performed By: #### 5 6101, 38163 #### [facility] [address] [place] [address], [place] Urea nitrogen mass conc 11 mg/dL Normal 7-[address] [facility] Comment on above: Order Comment: No: D o not add to previous draw Performed By: #### 5 6101, 55208 #### [facility] [address] [place] [address], [place] History and Physicalon 03-19 History and Physical MR#: [id number] [facility] Pt. 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 She was admitted to [facility] where she was found to be [...] stenosis during her last hospitalization here at [facility] earlier this month. There was a discussion with Cardiology service about aortic valve replacement, whether to have TAVR versus open heart surgery and that decision has not been made yet. She was supposed to follow up with our Cardiology service next week. Transfer was initiated from [place] for further evaluation from our Cardiology service and also due to concern at [facility] whether she needed urgent valve replacement done [...] heart rate 73, respiratory rate 23, blood [id number]/88, pulse ox 99% 2L NC. EYES: Pupils [...] alert and oriented x3. LAB STUDIES: From [facility], March 18, 2018. CBC; WBC 7.4, hemoglobin 12.7, hematocrit 39.2, platelet count 174. BMP: Sodium 142, potassium 3.3, chloride 101, bicarb 34.7, BUN 12, creatinine 0.71, calcium 8.5, glucose 93. The patient had BNP of 16,271 on March 16, 2018, when she initially presented. It appears that cardiac enzymes are negative. Chest x-ray is reported to be showing pulmonary edema from [place], but no images were sent over with [...] A/Jaguar John MD Date Trans: 03/19/2018 01:05 Dena/jerri [id number] Normal [facility] MAGNESIUM BLOODon 03-19-2018 Magnesium mass conc 1.8 mg/dL Low 1.9-2.[address] [facility] Comment on above: Order Comment: Yes: Add to Previous draw if able Performed By: #### 3 5200, 32972, 28372, 80128 #### [facility] [address] [place] [address], [facility] POC GLUCOSE LABon 03-19-2018 Glucose mass conc 260 mg/dL High 70-[address] [facility] Comment on above: Performed By: #### 5 6101, 22823 #### [facility] [address] [place] [address], [facility] Glucose mass conc 200 mg/dL High 70-[address] [facility] Comment on above: Performed By: #### 5 6101, 32364 #### [facility] [address] [place] [address], [place] Glucose mass conc 130 mg/dL High 70-[address] [facility] Comment on above: Performed By: #### 3 5200, 73053, 15569, 28790 #### [facility] [address] [place] [address], [place] Glucose mass conc 112 mg/dL High 70-[address] [facility] Comment on above: Performed By: #### 3 5200, 76565, 49618, 52641 #### [facility] [address] [place] [address], [facility] PROTHROMBIN TIMEon 9 INR Coag RelTime (PPP) 1.19 {INR} High 0.91-1.[address] [facility] Comment on above: Order Comment: No: [...] CHEST 1995;[id number]. Performed By: #### 5 6101, 00567 #### [facility] [address] Prothrombin time (PT) Coag time (PPP) 15.1 s High 12.3-14.8 [facility] Comment on above: Order Comment: No: D o not add to previous draw Result Comment: ALL RESULTS MUST BE INTERPRETED WITH RESPECT TO BLOOD DRAWING ARTIFACT OR DILUTION ERROR OF ANTICOAGULANT AT THE TIME OF SAMPLING. Performed By: #### 5 6101, 46553 #### [facility] [address] APTTon 03-13-2018 aPTT Coag time (Bld) 52.4 s High 25.0-35.[address] [facility] Comment on above: Order Comment: Yes: [...] OF HEPARIN. Performed By: #### 3 5200, 08926, 75825, 90813 #### [facility] [address] [place] [address], [facility] aPTT Coag time (Bld) 56.9 s High 25.0-35.[address] [facility] Comment on above: Order Comment: Yes: [...] OF HEPARIN. Performed By: #### 3 5200, 16750, 18579, 03923 #### [facility] [address] [place] [address], [facility] aPTT Coag time (Bld) 53.6 s High 25.0-35.[address] [facility] Comment on above: Order Comment: Yes: [...] OF HEPARIN. Performed By: #### 3 5200, 89980, 94840, 36969 #### [facility] [address] [place] [address], [facility] POC GLUCOSE LABon 03-13-2018 Glucose mass conc 140 mg/dL High 70-[address] [facility] Comment on above: Performed By: #### 3 5200, 50809, 70229, 95774 #### [facility] [address] [place] [address], [facility] Glucose mass conc 189 mg/dL High 70-[address] [facility] Comment on above: Performed By: #### 3 5200, 98822, 88423, 13987 #### [facility] [address] [place] [address], [place] Glucose mass conc 156 mg/dL High 70-[address] [facility] Comment on above: Performed By: #### 3 5200, 79713, 67024, 31613 #### [facility] [address] [place] [address], [place] UFH HEPARIN ASSAYon 03-13-19 19 UNFRACTIONATED HEPARIN 0.14 IU/mL Critically low 0.30-0.[address] [facility] Comment on above: Order Comment: Yes: Add to Previous draw if able Result Comment: Kathy roxaban and Apixaban will interfere with the anti Xa assay used to monitor UFH and LMWH. Results called. Accurately read back by PEGGY ISAACS 1508 Performed By: #### 3 5200, 31094, 59875, 61249 #### [facility] [address] [place] [address], [place] UNFRACTIONATED HEPARIN 0.18 IU/mL Low 0.30-0.[address] [facility] Comment on above: Order Comment: Yes: Add to Previous draw if able Result Comment: Cable roxaban and Apixaban will interfere with the anti Xa assay used to monitor UFH and LMWH. Performed By: #### 3 5200, 80957, 63182, 52791 #### [facility] [address] [place] [address], [place] UNFRACTIONATED HEPARIN 0.18 IU/mL Low 0.30-0.[address] [facility] Comment on above: Result Comment: Kathy roxaban and Apixaban will interfere with the anti Xa assay used to monitor UFH and LMWH. ADDED PER PROTOCOL. Performed By: #### 3 5200, 20808, 86590, 06843 #### [facility] [address] APTTon 03-12-2018 aPTT Coag time (Bld) 49.2 s High 25.0-35.[address] [facility] Comment on above: Order Comment: Yes: [...] THIS PURPOSE. Performed By: #### 3 5200, 11920, 21384, 10955 #### [facility] [address] [place] [address], [facility] aPTT Coag time (Bld) 59.2 s High 25.0-35.[address] [facility] Comment on above: Order Comment: Yes: [...] OF HEPARIN. Performed By: #### 3 5200, 18179, 06978, 82893 #### [facility] [address] [place] [address], [facility] aPTT Coag time (Bld) 43.7 s High 25.0-35.[address] [facility] Comment on above: Order Comment: Yes: [...] THIS PURPOSE. Performed By: #### 3 5200, 13472, 03426, 00284 #### [facility] [address] [place] [address], [place] BASIC METABOLIC PANELon 02-0 Calcium mass conc 8.9 mg/dL Normal 8.6-10.[address] [facility] Comment on above: Order Comment: Yes: Add to Previous draw if able Performed By: #### 3 5200, 80482, 67527, 09066 #### [facility] [address] [place] [address], [place] Chloride molar conc 100 mmol/L Normal 98-[address] [facility] Comment on above: Order Comment: Yes: Add to Previous draw if able Performed By: #### 3 5200, 92696, 99017, 75321 #### [facility] [address] [place] [address], [place] CO2 molar conc 28 mmol/L Normal 21-[address] [facility] Comment on above: Order Comment: Yes: Add to Previous draw if able Performed By: #### 3 5200, 57998, 29661, 06735 #### [facility] [address] [place] [address], [place] Creatinine mass conc 0.50 mg/dL Low 0.60-1.[address] [facility] Comment on above: Order Comment: Yes: Add to Previous draw if able Performed By: #### 3 5200, 71717, 63482, 00113 #### [facility] [address] [place] [address], [place] GFR/1.73 sq M predicted among blacks MDRD vol rate/area (S/P/Bld) mL/min/{1.73_m2} Normal >[address] [facility] Comment on above: Order Comment: Yes: Add to Previous draw if able Result Comment: Calc ulation may not be valid for patients over 70 years Performed By: #### 3 5200, 90700, 73483, 84529 #### [facility] [address] [place] [address], [place] GFR/1.73 sq M predicted among non-blacks MDRD vol rate/area (S/P/Bld) mL/min/{1.73_m2} Normal >[address] [facility] Comment on above: Order Comment: Yes: Add to Previous draw if able Result Comment: Calc ulation may not be valid for patients over 70 years Performed By: #### 3 5200, 65836, 17750, 93108 #### [facility] [address] [place] [address], [place] Glucose mass conc 132 mg/dL High 70-[address] [facility] Comment on above: Order Comment: Yes: Add to Previous draw if able Performed By: #### 3 5200, 72353, 09163, 45227 #### [facility] [address] [place] [address], [place] Potassium molar conc 3.6 mmol/L Normal 3.5-5.[address] [facility] Comment on above: Order Comment: Yes: Add to Previous draw if able Performed By: #### 3 5200, 35248, 53934, 40665 #### [facility] [address] [place] [address], [place] Sodium molar conc 137 mmol/L Normal 136-[address] [facility] Comment on above: Order Comment: Yes: Add to Previous draw if able Performed By: #### 3 5200, 79549, 28865, 04104 #### [facility] [address] [place] [address], [place] Urea nitrogen mass conc 10 mg/dL Normal 7-[address] [facility] Comment on above: Order Comment: Yes: Add to Previous draw if able Performed By: #### 3 5200, 45154, 93654, 80670 #### [facility] [address] [place] [address], [place] CBC COMPLETE BLOOD COUNTon 0 2- Erythrocyte distribution width Ratio (RBC) 16.1 % High 11.5-15.[address] [facility] Comment on above: Order Comment: Yes: Add to Previous draw if able Performed By: #### 3 5200, 10383, 07693, 12075 #### [facility] [address] [place] [address], [facility] Hematocrit Volume Fraction (Bld) 39.3 % Normal 36.0-45.0 [facility] Comment on above: Order Comment: Yes: Add to Previous draw if able Performed By: #### 3 5200, 48932, 12754, 04300 #### [facility] [address] [place] [id number], [facility] Hemoglobin mass conc (Bld) 12.4 g/dL Normal 12.0-15.[address] [facility] Comment on above: Order Comment: Yes: Add to Previous draw if able Performed By: #### 3 5200, 50438, 09391, 38710 #### [facility] [address] [place] [address], [facility] MCH Entitic mass (RBC) 29.7 pg Normal 27.0-33.[address] [facility] Comment on above: Order Comment: Yes: Add to Previous draw if able Performed By: #### 3 5200, 73585, 34416, 77972 #### [facility] [address] [place] [address], [facility] MCHC mass conc (RBC) 31.6 g/dL Low 32.0-35.[address] [facility] Comment on above: Order Comment: Yes: Add to Previous draw if able Performed By: #### 3 5200, 85707, 81067, 71637 #### [facility] [address] [place] [id number], [facility] MCV Entitic volume (RBC) 94.0 fL Normal 82.0-98.[address] [facility] Comment on above: Order Comment: Yes: Add to Previous draw if able Performed By: #### 3 5200, 37954, 69004, 94096 #### [facility] [address] [place] [id number], [facility] Nucleated RBC/100 WBC Ratio (Bld) 0 % Normal 0-[address] [facility] Comment on above: Order Comment: Yes: Add to Previous draw if able Performed By: #### 3 5200, 54547, 96308, 58963 #### [facility] [address] [place] [address], [facility] PLAT CNT 185 10*3/uL Normal 150-[address] [facility] Comment on above: Order Comment: Yes: Add to Previous draw if able Performed By: #### 3 5200, 37088, 91450, 10461 #### [facility] [address] [place] [address], [facility] RBC #/vol (Bld) 4.18 10*6/uL Normal 3.80-5.[address] [facility] Comment on above: Order Comment: Yes: Add to Previous draw if able Performed By: #### 3 5200, 48189, 42728, 46489 #### [facility] [address] [place] [address], [facility] WBC #/vol (Bld) 6.85 10*3/uL Normal 4.00-10.[address] [facility] Comment on above: Order Comment: Yes: Add to Previous draw if able Performed By: #### 3 5200, 77682, 24892, 87492 #### [facility] [address] [place] [address], [facility] POC GLUCOSE LABon 03-12-2018 Glucose mass conc 135 mg/dL High 70-[address] [facility] Comment on above: Performed By: #### 3 5200, 84309, 73275, 81949 #### [facility] [address] [place] [address], [facility] Glucose mass conc 188 mg/dL High 70-[address] [facility] Comment on above: Performed By: #### 3 5200, 38960, 89557, 65964 #### [facility] [address] [place] [address], [facility] Glucose mass conc 130 mg/dL High 70-[address] [facility] Comment on above: Performed By: #### 3 5200, 14371, 04832, 47582 #### [facility] [address] [place] [address], [facility] Glucose mass conc 139 mg/dL High 70-[address] [facility] Comment on above: Performed By: #### 3 5200, 21217, 28335, 50811 #### [facility] [address] UFH HEPARIN ASSAYon 03-12-19 19 UNFRACTIONATED HEPARIN 0.30 IU/mL Normal 0.30-0.[address] [facility] Comment on above: Order Comment: Yes: Add to Previous draw if able Result Comment: Kathy roxaban and Apixaban will interfere with the anti Xa assay used to monitor UFH and LMWH. Performed By: #### 3 5200, 23811, 29070, 98926 #### [facility] [address] [facility] APTTon 03-11-2018 aPTT Coag time (Bld) 88.3 s Critically high 25.0-35.0 [facility] Comment on above: Order Comment: [...] OF HEPARIN. Performed By: #### 3 5200, 25585, 81956, 74599 #### [facility] [address] [place] [address], [facility] aPTT Coag time (Bld) 50.4 s High 25.0-35.[address] [facility] Comment on above: Order Comment: No: [...] THIS PURPOSE. Performed By: #### 3 5200, 57143, 43285, 16805 #### [facility] [address] [place] [address], [facility] BASIC METABOLIC PANELon 02-0 Calcium mass conc 8.9 mg/dL Normal 8.6-10.[address] [facility] Comment on above: Order Comment: No: D o not add to previous draw Performed By: #### 3 5200, 49825, 90029, 92513 #### [facility] [address] [place] [address], [facility] Chloride molar conc 101 mmol/L Normal 98-[address] [facility] Comment on above: Order Comment: No: D o not add to previous draw Performed By: #### 3 5200, 37255, 93429, 57726 #### [facility] [address] [place] [address], [facility] CO2 molar conc 29 mmol/L Normal 21-[address] [facility] Comment on above: Order Comment: No: D o not add to previous draw Performed By: #### 3 5200, 60089, 11857, 45812 #### [facility] [address] [place] [address], [facility] Creatinine mass conc 0.55 mg/dL Low 0.60-1.[address] [facility] Comment on above: Order Comment: No: D o not add to previous draw Performed By: #### 3 5200, 56121, 80570, 89025 #### [facility] [address] [place] [address], [facility] GFR/1.73 sq M predicted among blacks MDRD vol rate/area (S/P/Bld) mL/min/{1.73_m2} Normal >[address] [facility] Comment on above: Order Comment: No: D o not add to previous draw Result Comment: Calc ulation may not be valid for patients over 70 years Performed By: #### 3 5200, 87050, 16926, 89721 #### [facility] [address] [place] [address], [place] GFR/1.73 sq M predicted among non-blacks MDRD vol rate/area (S/P/Bld) mL/min/{1.73_m2} Normal >[address] [facility] Comment on above: Order Comment: No: D o not add to previous draw Result Comment: Calc ulation may not be valid for patients over 70 years Performed By: #### 3 5200, 66024, 69572, 39357 #### [facility] [address] [place] [address], [place] Glucose mass conc 152 mg/dL High 70-[address] [facility] Comment on above: Order Comment: No: D o not add to previous draw Performed By: #### 3 5200, 07672, 05272, 48203 #### [facility] [address] [place] [address], [place] Potassium molar conc 3.7 mmol/L Normal 3.5-5.[address] [facility] Comment on above: Order Comment: No: D o not add to previous draw Performed By: #### 3 5200, 50693, 65922, 43830 #### [facility] [address] [place] [address], [place] Sodium molar conc 138 mmol/L Normal 136-[address] [facility] Comment on above: Order Comment: No: D o not add to previous draw Performed By: #### 3 5200, 23436, 56204, 89113 #### [facility] [address] [place] [address], [place] Urea nitrogen mass conc 12 mg/dL Normal 7-[address] [facility] Comment on above: Order Comment: No: D o not add to previous draw Performed By: #### 3 5200, 85316, 96775, 90733 #### [facility] [address] [facility] CBC W/DIFFon 03-11-2018 ABS BASOPHILS 0.1 10*3/uL Normal 0.0-0.[address] [facility] Comment on above: Order Comment: No: D o not add to previous draw Performed By: #### 3 5200, 05659, 77605, 44981 #### [facility] [address] [facility] [address] ABS IMM GRANS 0.0 10*3/uL Normal 0.0-0.[address] [facility] Comment on above: Order Comment: No: D o not add to previous draw Performed By: #### 3 5200, 94734, 89358, 83915 #### [facility] [address] [facility] ABS NEUTROPHILS 4.7 10*3/uL Normal 1.6-7.[address] [facility] Comment on above: Order Comment: No: D o not add to previous draw Performed By: #### 3 5200, 58457, 80071, 79134 #### [facility] [address] [facility] Basophils #/vol (Bld) 0.9 % Normal 0.0-1.[address] [facility] Comment on above: Order Comment: No: D o not add to previous draw Performed By: #### 3 5200, 40350, 28642, 06597 #### [facility] [address] [facility]. [address] Eosinophils #/vol (Bld) 0.2 10*3/uL Normal 0.0-0.[address] [facility] Comment on above: Order Comment: No: D o not add to previous draw Performed By: #### 3 5200, 66314, 49137, 23622 #### [facility] [address] Eosinophils/100 WBC (Bld) 2.4 % Normal 0.0-6.[address] [facility] Comment on above: Order Comment: No: D o not add to previous draw Performed By: #### 3 5200, 29968, 38112, 60763 #### [facility] [address] Erythrocyte distribution width Ratio (RBC) 16.1 % High 11.5-15.[address] [facility] Comment on above: Order Comment: No: D o not add to previous draw Performed By: #### 3 5200, 90197, 80776, 19228 #### [facility] [address] Hematocrit Volume Fraction (Bld) 38.7 % Normal 36.0-45.[address] [facility] Comment on above: Order Comment: No: D o not add to previous draw Performed By: #### 3 5200, 94115, 58204, 20201 #### [facility] [address] Hemoglobin mass conc (Bld) 12.5 g/dL Normal 12.0-15.[address] [facility] Comment on above: Order Comment: No: D o not add to previous draw Performed By: #### 3 5200, 05167, 15304, 27134 #### [facility] [address] [facility] [place] [place] [address], [facility] IMMATURE GRANS 0.6 % Normal 0.0-1.[address] [facility] Comment on above: Order Comment: No: D o not add to previous draw Performed By: #### 3 5200, 70584, 25004, 18246 #### [facility] [address] [place] [address], [facility] Lymphocytes #/vol (Bld) 1.3 10*3/uL Normal 1.2-4.[address] [facility] Comment on above: Order Comment: No: D o not add to previous draw Performed By: #### 3 5200, 06210, 30585, 28745 #### [facility] [address] [facility] [place] [address], [facility] Lymphocytes/100 WBC (Bld) 18.6 % Low 20.0-45.0 [facility] Comment on above: Order Comment: No: D o not add to previous draw Performed By: #### 3 5200, 68640, 85555, 89843 #### [facility] [address] [facility] [address] MCH Entitic mass (RBC) 29.9 pg Normal 27.0-33.[address] [facility] Comment on above: Order Comment: No: D o not add to previous draw Performed By: #### 3 5200, 52670, 15559, 69635 #### [facility] [address] [facility] [address] MCHC mass conc (RBC) 32.3 g/dL Normal 32.0-35.[address] [facility] Comment on above: Order Comment: No: D o not add to previous draw Performed By: #### 3 5200, 95911, 31195, 24722 #### [facility] [address] [facility] [place] [address], [facility] MCV Entitic volume (RBC) 92.6 fL Normal 82.0-98.[address] [facility] Comment on above: Order Comment: No: D o not add to previous draw Performed By: #### 3 5200, 88624, 28060, 96661 #### [facility] [address] [place] [address], [facility] Monocytes #/vol (Bld) 0.5 10*3/uL Normal 0.1-1.[address] [facility] Comment on above: Order Comment: No: D o not add to previous draw Performed By: #### 3 5200, 96390, 49685, 82978 #### [facility] [address] [place] [address], [facility] MONOS 7.0 % Normal 5.0-12.[address] [facility] Comment on above: Order Comment: No: D o not add to previous draw Performed By: #### 3 5200, 71074, 63780, 00742 #### [facility] [address] [place] [id number], [facility] Neutrophils/100 WBC (Bld) 70.5 % Normal 40.0-72.[address] [facility] Comment on above: Order Comment: No: D o not add to previous draw Performed By: #### 3 5200, 91666, 03079, 98484 #### [facility] [address] [place] [address], [facility] Nucleated RBC/100 WBC Ratio (Bld) 0 % Normal 0-[address] [facility] Comment on above: Order Comment: No: D o not add to previous draw Performed By: #### 3 5200, 13982, 64641, 27392 #### [facility] [address] [facility] [place] [address], [facility] PLAT CNT 189 10*3/uL Normal 150-[address] [facility] Comment on above: Order Comment: No: D o not add to previous draw Performed By: #### 3 5200, 01622, 11526, 07122 #### [facility] [address] [place] [address], [facility] RBC #/vol (Bld) 4.18 10*6/uL Normal 3.80-5.[address] [facility] Comment on above: Order Comment: No: D o not add to previous draw Performed By: #### 3 5200, 88581, 18966, 05544 #### [facility] [address] [place] [id number], [facility] WBC #/vol (Bld) 6.71 10*3/uL Normal 4.00-10.[address] [facility] Comment on above: Order Comment: No: D o not add to previous draw Performed By: #### 3 5200, 36867, 46291, 53032 #### [facility] [address] [place] [address], [facility] POC GLUCOSE LABon 03-11-2018 Glucose mass conc 128 mg/dL High 70-100 [facility] Comment on above: Performed By: #### 3 5200, 80174, 50798, 74181 #### [facility] [address] [place] [address], [facility] Glucose mass conc 100 mg/dL Normal 70-100 [facility] Comment on above: Performed By: #### 3 5200, 22195, 02238, 09301 #### [facility] [address] [place] [address], [facility] Glucose mass conc 158 mg/dL High 70-100 [facility] Comment on above: Performed By: #### 3 5200, 18218, 28906, 15398 #### [facility] [address] [place] [address], [facility] UFH HEPARIN ASSAYon 03-11-19 19 UNFRACTIONATED HEPARIN 0.35 IU/mL Normal 0.30-0.[address] [facility] Comment on above: Order Comment: Yes: Add to Previous draw if able Result Comment: Cable roxaban and Apixaban will interfere with the anti Xa assay used to monitor UFH and LMWH. RESULTS CHECKED AND CALLED. ACCURATELY READ BACK BY ANANYA GUERRA RN AT 15:51 CLINICAL SIGNIFICANCE OF THE PTT RESULT IS QUESTIONABLE IN THE PRESENCE OF HEPARIN. Performed By: #### 3 5200, 72971, 82354, 74443 #### [facility] [address] [place] [address], [facility] UNFRACTIONATED HEPARIN 0.28 IU/mL Low 0.30-0.[address] [facility] Comment on above: Result Comment: Kathy roxaban and Apixaban will interfere with the anti Xa assay used to monitor UFH and LMWH. Performed By: #### 3 5200, 98874, 58573, 89015 #### [facility] [address] [place] [address], [facility] APTTon 03-10-2018 aPTT Coag time (Bld) 53.0 s High 25.0-35.[address] [facility] Comment on above: Order Comment: No: [...] OF HEPARIN. Performed By: #### 3 5200, 93489, 51599, 35706 #### [facility] [address] [place] [address], [facility] aPTT Coag time (Bld) 47.7 s High 25.0-35.[address] [facility] Comment on above: Order Comment: No: [...] THIS PURPOSE. Performed By: #### 3 5200, 71368, 60958, 77739 #### [facility] [address] [place] [address], [facility] aPTT Coag time (Bld) 68.2 s High 25.0-35.[address] [facility] Comment on above: Order Comment: No: [...] THIS PURPOSE. Performed By: #### 3 5200, 24340, 85857, 88258 #### [facility] [address] [place] [address], [facility] BASIC METABOLIC PANELon 02-0 Calcium mass conc 8.7 mg/dL Normal 8.6-10.[address] [facility] Comment on above: Order Comment: No: D o not add to previous draw Performed By: #### 3 5200, 34263, 51629, 42335 #### [facility] [address] [place] [address], [facility] Chloride molar conc 100 mmol/L Normal 98-[address] [facility] Comment on above: Order Comment: No: D o not add to previous draw Performed By: #### 3 5200, 75712, 57059, 34800 #### [facility] [address] [place] [address], [facility] CO2 molar conc 28 mmol/L Normal 21-[address] [facility] Comment on above: Order Comment: No: D o not add to previous draw Performed By: #### 3 5200, 31665, 17397, 22396 #### [facility] [address] [place] [address], [facility] Creatinine mass conc 0.57 mg/dL Low 0.60-1.[address] [facility] Comment on above: Order Comment: No: D o not add to previous draw Performed By: #### 3 5200, 13636, 25989, 18739 #### [facility] [address] [place] [address], [place] GFR/1.73 sq M predicted among blacks MDRD vol rate/area (S/P/Bld) mL/min/{1.73_m2} Normal >[address] [facility] Comment on above: Order Comment: No: D o not add to previous draw Result Comment: Calc ulation may not be valid for patients over 70 years Performed By: #### 3 5200, 22241, 73926, 01343 #### [facility] [address] [place] [address], [facility] GFR/1.73 sq M predicted among non-blacks MDRD vol rate/area (S/P/Bld) mL/min/{1.73_m2} Normal >[address] [facility] Comment on above: Order Comment: No: D o not add to previous draw Result Comment: Calc ulation may not be valid for patients over 70 years Performed By: #### 3 5200, 33386, 79587, 63580 #### [facility] [address] [place] [address], [facility] Glucose mass conc 141 mg/dL High 70-[address] [facility] [facility] Comment on above: Order Comment: No: D o not add to previous draw Performed By: #### 3 5200, 46859, 44828, 55596 #### [facility] [address] [place] [address], [facility] Potassium molar conc 4.0 mmol/L Normal 3.5-5.[address] [facility] Comment on above: Order Comment: No: D o not add to previous draw Performed By: #### 3 5200, 38459, 21035, 62930 #### [facility] [address] [place] [address], [facility] Sodium molar conc 136 mmol/L Normal 136-[address] [facility] Comment on above: Order Comment: No: D o not add to previous draw Performed By: #### 3 5200, 84308, 29599, 87321 #### [facility] [address] [place] [address], [place] Urea nitrogen mass conc 12 mg/dL Normal 7-[address] [facility] Comment on above: Order Comment: No: D o not add to previous draw Performed By: #### 3 5200, 56063, 08230, 61757 #### [facility] [address] [place] [address], [place] CBC COMPLETE BLOOD COUNTon 0 - Erythrocyte distribution width Ratio (RBC) 16.1 % High 11.5-15.[address] [facility] Comment on above: Order Comment: No: D o not add to previous draw Performed By: #### 3 5200, 60453, 52189, 78863 #### [facility] [address] [place] [id number], [facility] Hematocrit Volume Fraction (Bld) 39.4 % Normal 36.0-45.[address] [facility] Comment on above: Order Comment: No: D o not add to previous draw Performed By: #### 3 5200, 66345, 05709, 09403 #### [facility] [address] [place] [address], [facility] Hemoglobin mass conc (Bld) 12.9 g/dL Normal 12.0-15.[address] [facility] Comment on above: Order Comment: No: D o not add to previous draw Performed By: #### 3 5200, 30273, 80841, 18834 #### [facility] [address] [place] [address], [facility] MCH Entitic mass (RBC) 30.0 pg Normal 27.0-33.[address] [facility] Comment on above: Order Comment: No: D o not add to previous draw Performed By: #### 3 5200, 96888, 11479, 17999 #### [facility] [address] [place] [address], [facility] MCHC mass conc (RBC) 32.7 g/dL Normal 32.0-35.[address] [facility] Comment on above: Order Comment: No: D o not add to previous draw Performed By: #### 3 5200, 05475, 34861, 95664 #### [facility] [address] [place] [address], [place] MCV Entitic volume (RBC) 91.6 fL Normal 82.0-98.[address] [facility] Comment on above: Order Comment: No: D o not add to previous draw Performed By: #### 3 5200, 54875, 15254, 93574 #### [facility] [address] Nucleated RBC/100 WBC Ratio (Bld) 0 % Normal 0-[address] [facility] Comment on above: Order Comment: No: D o not add to previous draw Performed By: #### 3 5200, 39409, 05083, 24502 #### [facility] [address] [place] [address], [facility] PLAT CNT 200 10*3/uL Normal 150-[address] [facility] Comment on above: Order Comment: No: D o not add to previous draw Performed By: #### 3 5200, 52075, 30640, 71110 #### [facility] [address] [place] [address], [facility] RBC #/vol (Bld) 4.30 10*6/uL Normal 3.80-5.[address] [facility] Comment on above: Order Comment: No: D o not add to previous draw Performed By: #### 3 5200, 40751, 71552, 85899 #### [facility] [address] [place] [address], [facility] WBC #/vol (Bld) 7.21 10*3/uL Normal 4.00-10.[address] [facility] Comment on above: Order Comment: No: D o not add to previous draw Performed By: #### 3 5200, 99679, 23766, 75360 #### [facility] [address] UFH HEPARIN ASSAYon 03-10-19 19 UNFRACTIONATED HEPARIN 0.33 IU/mL Normal 0.30-0.[address] [facility] Comment on above: Result Comment: Cable roxaban and Apixaban will interfere with the anti Xa assay used to monitor UFH and LMWH. UFH ADDED PER PROTOCOL Performed By: #### 3 5200, 01186, 40238, 05096 #### [facility] [address] UNFRACTIONATED HEPARIN 0.89 IU/mL High 0.30-0.[address] [facility] Comment on above: Order Comment: No: D o not add to previous draw Result Comment: Cable roxaban and Apixaban will interfere with the anti Xa assay used to monitor UFH and LMWH. Performed By: #### 3 5200, 78377, 17544, 76897 #### [facility] [address] [place] [address], [facility] APTTon 03-09-2018 aPTT Coag time (Bld) 67.5 s High 25.0-35.[address] [facility] Comment on above: Order Comment: Yes: [...] By: #### 8 5123 #### [facility] [address] [place] [address], [facility] aPTT Coag time (Bld) 58.4 s High 25.0-35.[address] [facility] Comment on above: Order Comment: Yes: [...] By: #### 8 5123 #### [facility] [address] [place] [address], [facility] aPTT Coag time (Bld) 89.8 s Critically high 25.0-35.[address] [facility] Comment on above: Order Comment: Yes: [...] By: #### 8 5123 #### [facility] [address] aPTT Coag time (Bld) 80.2 s Critically high 25.0-35.[address] [facility] Comment on above: Order Comment: Yes: [...] By: #### 8 5123 #### [facility] [address] aPTT Coag time (Bld) 47.3 s High 25.0-35.[address] [facility] Comment on above: Order Comment: No: [...] THIS PURPOSE. Performed By: #### 5 6101, 34442 #### [facility] [address] BNP (B-TYPE NATRIURETIC PEPT ISSA)on 03-09-2018 Natriuretic peptide B mass conc (Bld) 596 pg/mL High 0-[address] [facility] Comment on above: Order Comment: Yes: Add to Previous draw if able Result Comment: Give n the appropriate clinical setting a BNP result of >100 pg/mL indicates congestive heart failure. Performed By: #### 8 5123 #### [facility] [address] CBC COMPLETE BLOOD COUNTon 0 - Erythrocyte distribution width Ratio (RBC) 16.1 % High 11.5-15.[address] [facility] Comment on above: Order Comment: Yes: Add to Previous draw if able Performed By: #### 8 5123 #### [facility] [address] Hematocrit Volume Fraction (Bld) 42.2 % Normal 36.0-45.[address] [facility] Comment on above: Order Comment: Yes: Add to Previous draw if able Performed By: #### 8 5123 #### [facility] [address] Hemoglobin mass conc (Bld) 13.7 g/dL Normal 12.0-15.[address] [facility] Comment on above: Order Comment: Yes: Add to Previous draw if able Performed By: #### 8 5123 #### [facility] [address] [place] [address], [facility] MCH Entitic mass (RBC) 30.0 pg Normal 27.0-33.[address] [facility] Comment on above: Order Comment: Yes: Add to Previous draw if able Performed By: #### 8 5123 #### [facility] [address] [place] [address], [facility] MCHC mass conc (RBC) 32.5 g/dL Normal 32.0-35.[address] [facility] Comment on above: Order Comment: Yes: Add to Previous draw if able Performed By: #### 8 5123 #### [facility] [address] [place] [id number], [facility] MCV Entitic volume (RBC) 92.5 fL Normal 82.0-98.[address] [facility] Comment on above: Order Comment: Yes: Add to Previous draw if able Performed By: #### 8 5123 #### [facility] [address] [place] [address], [facility] Nucleated RBC/100 WBC Ratio (Bld) 0 % Normal 0-[address] [facility] Comment on above: Order Comment: Yes: Add to Previous draw if able Performed By: #### 8 5123 #### [facility] [address] [place] [address], [facility] PLAT CNT 208 10*3/uL Normal 150-[address] [facility] Comment on above: Order Comment: Yes: Add to Previous draw if able Performed By: #### 8 5123 #### [facility] [address] [place] [address], [facility] RBC #/vol (Bld) 4.56 10*6/uL Normal 3.80-5.[address] [facility] Comment on above: Order Comment: Yes: Add to Previous draw if able Performed By: #### 8 5123 #### [facility] [address] [place] [address], [facility] WBC #/vol (Bld) 9.26 10*3/uL Normal 4.00-10.[address] [facility] Comment on above: Order Comment: Yes: Add to Previous draw if able Performed By: #### 8 5123 #### [facility] [address] Erythrocyte distribution width Ratio (RBC) 15.9 % High 11.5-15.[address] [facility] Comment on above: Order Comment: Yes: Add to Previous draw if able Performed By: #### 5 0608 #### [facility] [address] [place] [address], [facility] Hematocrit Volume Fraction (Bld) 38.2 % Normal 36.0-45.[address] [facility] Comment on above: Order Comment: Yes: Add to Previous draw if able Performed By: #### 5 0608 #### [facility] [address] Hemoglobin mass conc (Bld) 12.4 g/dL Normal 12.0-15.[address] [facility] Comment on above: Order Comment: Yes: Add to Previous draw if able Performed By: #### 5 0608 #### [facility] [address] MCH Entitic mass (RBC) 29.5 pg Normal 27.0-33.[address] [facility] Comment on above: Order Comment: Yes: Add to Previous draw if able Performed By: #### 5 0608 #### [facility] [address] [facility] [address] MCHC mass conc (RBC) 32.5 g/dL Normal 32.0-35.[address] [facility] Comment on above: Order Comment: Yes: Add to Previous draw if able Performed By: #### 5 0608 #### [facility] [address] MCV Entitic volume (RBC) 91.0 fL Normal 82.0-98.[address] [facility] Comment on above: Order Comment: Yes: Add to Previous draw if able Performed By: #### 5 0608 #### [facility] [address] [facility]. [address] Nucleated RBC/100 WBC Ratio (Bld) 0 % Normal 0-[address] [facility] Comment on above: Order Comment: Yes: Add to Previous draw if able Performed By: #### 5 0608 #### [facility] [address] [facility] [place] [address], [facility] PLAT CNT 193 10*3/uL Normal 150-[address] [facility] Comment on above: Order Comment: Yes: Add to Previous draw if able Performed By: #### 5 0608 #### [facility] [address] [place] [address], [facility] RBC #/vol (Bld) 4.20 10*6/uL Normal 3.80-5.[address] [facility] Comment on above: Order Comment: Yes: Add to Previous draw if able Performed By: #### 5 0608 #### [facility] [address] [place] [id number], [facility] WBC #/vol (Bld) 8.57 10*3/uL Normal 4.00-10.[address] [facility] Comment on above: Order Comment: Yes: Add to Previous draw if able Performed By: #### 5 0608 #### [facility] [address] [place] [id number], [facility] ELECTROLYTE PANELon 03-09-19 19 Chloride molar conc 98 mmol/L Normal 98-[address] [facility] Comment on above: Order Comment: Yes: Add to Previous draw if able Performed By: #### 3 5200, 65275, 41805, 50240 #### [facility] [address] [place] [address], [facility] CO2 molar conc 26 mmol/L Normal 21-[address] [facility] Comment on above: Order Comment: Yes: Add to Previous draw if able Performed By: #### 3 5200, 68756, 60639, 92852 #### [facility] [address] [place] [address], [facility] Potassium molar conc 4.0 mmol/L Normal 3.5-5.[address] [facility] Comment on above: Order Comment: Yes: Add to Previous draw if able Performed By: #### 3 5200, 39181, 55722, 95839 #### [facility] [address] [place] [address], [place] Sodium molar conc 135 mmol/L Low 136-[address] [facility] Comment on above: Order Comment: Yes: Add to Previous draw if able Performed By: #### 3 5200, 41487, 23298, 18417 #### [facility] [address] [place] [id number], [facility] MAGNESIUM BLOODon 03-09-2018 Magnesium mass conc 1.2 mg/dL Low 1.9-2.[address] [facility] Comment on above: Order Comment: Yes: Add to Previous draw if able Performed By: #### 3 5200, 40215, 24735, 12583 #### [address] [address], [facility] PORTABLE CHEST 1 VIEWon PORTABLE CHEST 1 VIEW [facility] Department of Radiology [address] [place] [address] ======== Patient Name: PERCY KAPLAN : 1945 Sex: F Age: Race: White Pt. Location: [id number] Patient Status: I Ordered Date: 03/09/2018 2:15:00 [...] findings. Electronically signed by:Peña Díaz. Transcribed by: [email or web address], User Resident: BETH MILTON Electronically Signed by: PEÑA DÍAZ @ 03/09/2018 01:31 PM I personally read this/these film(s) with this resident Normal The [facility] Comment on above: Order Comment: Yes: Add to Previous draw if able PROTHROMBIN TIMEon 9 INR Coag RelTime (PPP) 1.78 {INR} High 0.91-1.[address] [facility] Comment on above: Result Comment: ACCC P [...] 1995;108:231S-246S. Performed By: #### 8 5123 #### [address] Prothrombin time (PT) Coag time (PPP) 20.8 s High 12.3-14.[address] [facility] Comment on above: Result Comment: ALL RESULTS MUST BE INTERPRETED WITH RESPECT TO BLOOD DRAWING ARTIFACT OR DILUTION ERROR OF ANTICOAGULANT AT THE TIME OF SAMPLING. Performed By: #### 8 5123 #### [facility] [address] INR Coag RelTime (PPP) 2.82 {INR} High 0.91-1.[address] [facility] Comment on above: Order Comment: No: [...] CHEST 1995;108:231S-246S. Performed By: #### 5 6101, 55185 #### [facility] [address] [place] [address], [facility] Prothrombin time (PT) Coag time (PPP) 29.9 s High 12.3-14.[address] [facility] Comment on above: Order Comment: No: D o not add to previous draw Result Comment: ALL RESULTS MUST BE INTERPRETED WITH RESPECT TO BLOOD DRAWING ARTIFACT OR DILUTION ERROR OF ANTICOAGULANT AT THE TIME OF SAMPLING. Performed By: #### 5 6101, 19498 #### [facility] [address] [place] [address], [facility] TROPONIN-Ion 03-09-2018 Troponin I.cardiac mass conc 0.01 ng/mL Normal 0.00-0.[address] [facility] Comment on above: Order Comment: No: D o not add to previous draw Result Comment: REFE RENCE RANGES: 0.00 - 0.04 ng/ml NORMAL 0.05 - 0.50 ng/ml INDETERMINATE > 0.50 ng/ml CONSISTENT WITH AN M.I. Performed By: #### 3 5200 #### [facility] [address] [place] [address], [facility] Troponin I.cardiac mass conc 0.01 ng/mL Normal 0.00-0.[address] [facility] Comment on above: Order Comment: No: D o not add to previous draw Result Comment: REFE RENCE RANGES: 0.00 - 0.04 ng/ml NORMAL 0.05 - 0.50 ng/ml INDETERMINATE > 0.50 ng/ml CONSISTENT WITH AN M.I. Performed By: #### 3 5200 #### [facility] [address] [place] [address], [facility] Troponin I.cardiac mass conc 0.01 ng/mL Normal 0.00-0.[address] [facility] Comment on above: Order Comment: No: D o not add to previous draw Result Comment: REFE RENCE RANGES: 0.00 - 0.04 ng/ml NORMAL 0.05 - 0.50 ng/ml INDETERMINATE > 0.50 ng/ml CONSISTENT WITH AN M.I. Performed By: #### 3 5200, 70498, 35615, 58659 #### [facility] [address] [place] [address], [facility] TSH3on 03-09-2018 TSH 3RD GENERATION 3.21 uIU/mL Normal 0.34-5.[address] [facility] Comment on above: Order Comment: Yes: Add to Previous draw if able Performed By: #### 3 5200, 11399, 36825, 11953 #### [facility] [address] [place] [address], [facility] UFH HEPARIN ASSAYon 03-09-19 19 UNFRACTIONATED HEPARIN >1.00 Critically high 0.30-0.[address] [facility] Comment on above: Result Comment: Cable roxaban and Apixaban will interfere with the anti Xa assay used to monitor UFH and LMWH. Performed By: #### 8 5123 #### [facility] [address] [place] [address], [facility] UNFRACTIONATED HEPARIN >1.00 Critically high 0.30-0.[address] [facility] Comment on above: Order Comment: Yes: Add to Previous draw if able Result Comment: Kathy roxaban and Apixaban will interfere with the anti Xa assay used to monitor UFH and LMWH. UFH = 2.28. UFH MAY BE ELEVATED IN THE PRESENCE OF OTHER ANTI-XA INHIBITORS. Performed By: #### 8 5123 #### [facility] [address] [place] [address], [facility] UNFRACTIONATED HEPARIN >1.00 Critically high 0.30-0.[address] [facility] Comment on above: Result Comment: Cable roxaban and Apixaban will interfere with the [...] By: #### 8 5123 #### [facility] [address] [place], [place] [id number] [place] [address] Vital Signs Date Time Vital Sign Value Performing Clinician Leigh weiss 10-27-2022 12:14-040 Diastolic blood pressure 53 mm[Hg] MD Gumaro Ordonez Work Phone: [facility] 10-27-2022 12:14-040 Heart rate 73 /min MD Gumaro Ordonez Work Phone: [facility] 09-22-2023 12:14-0400 Respiratory rate 18 /min MD Gumaro Ordonez Work Phone: [facility] 10-27-2022 12:14-0400 SaO2% (BldA) [Mass fraction] 95 % MD Gumaro Ordonez Work Phone: [facility] 10-27-2022 12:14-0400 Systolic blood pressure 128 mm[Hg] MD Gumaro Ordonez Work Phone: [facility] 10-27-2022 10:54-0400 Body height 160.02 cm MD Gumaro Ordonez Work Phone: [facility] 10-27-2022 10:54-0404 Body weight 122.46 kg MD Gumaro Ordonez Work Phone: [facility] Encounters Encounter Date Encounter Type Care Provider Facility Start: 04-12-2023 End: 04-12-2023 ambulatory [facility] Start: 03-29-2023 ambulatory [facility] Start: 03-28-2023 End: 03-29-2023 ambulatory [facility] Start: 03-28-[address] [facility] Start: 03-27-2023 Evaluation and management of inpatient [facility] Start: 03-27-2023 End: 03-28-2023 ambulatory [facility] Start: 03-19-2023 End: 03-19-2023 ambulatory [facility] Start: 02-27-[address] [facility] Start: 02-27-[address] [facility] Start: 02-27-2023 End: 03-29-2023 Evaluation and management of inpatient [facility] Start: 01-12-2023 End: 01-12-2023 ambulatory [facility] Start: 12-04-2022 End: 12-04-2022 ambulatory Joe Cosme Facility:[facility] Start: 12-04-2022 End: 12-04-2022 ambulatory MD Gumaro Ordonez Work Phone: [facility] Work Phone: Start: 12-04-2022 End: 12-04-2022 Patient encounter procedure MD Gumaro Ordonez Work Phone: [facility] Work Phone: Start: 11-14-2022 End: 11-14-2022 ambulatory [facility] Start: 10-27-2022 End: 10-27-2022 ambulatory Joe Cosme Facility:[facility] Start: 10-27-2022 End: 10-27-2022 Admission to same day surgery center MD Gumaro Ordonez Work Phone: [facility] Work Phone: Start: 10-18-2022 End: 10-18-2022 ambulatory [facility] Start: 10-12-2022 ambulatory Mikey NIELSON Facility:[facility] Start: 10-11-2022 End: 10-15-2022 ambulatory Mikey NIELSON Facility:CD:[id number] Start: 09-22-2022 End: 09-22-2022 ambulatory [facility] Start: 07-17-2022 End: 07-17-2022 ambulatory [facility] Start: 05-01-2022 End: 05-02-[address] GUMARO ORDONEZ Facility:[facility] Start: 03-22-2022 End: 03-23-[address] GUMARO ORDONEZ Facility:[facility] Start: 10-31-2021 End: 11-01-[address] GUMARO ORDONEZ Facility:[facility] Start: 09-28-2021 End: 09-29-2021 ambulatory ROSA ROSA Facility: Start: 03-18-2018 End: 03-24-2018 Evaluation and management of inpatient DAVID GABRIEL Facility:[facility] Start: 03-09-2018 End: 03-13-2018 Evaluation and management of inpatient STEPHANIE CARBALLO Facility:[facility] Procedures Date Procedure Procedure Detail Performing Clinician Start: 12-04-2022 Capsule endoscopy MD Gumaro Ordonez Work Phone: Start: 10-27-2022 Esophagogastroduodenoscopy MD Gumaro Jiang er Work Phone: Start: 03-12-2018 [facility], Single MOSHRIK ABD ALAMIR [...] Date Care Activity Detail Author Start: 12-04-2022 [facility] Start: 10-27-2022 [facility] Patient Education Colon polyps H emorrhoids (DC) Diverticulosis (DC) Hiatal Hernia (DC) [facility] Work Phone: Payers Date Payer Category Payer Medicare [id number] 2022 Self-pay 1958 Medicare [id number] 1958 Unknown [id number] 1945 Unknown [id number] 2.16.8 [id number] 1945 Unknown [id number] 2.16.8 [id number] 1945 Unknown [id number] 2.16.84 [id number] 1945 Unknown [id number] 2.16.84 [id number] 1945 Unknown [id number] 2.16.84 [id number] 1945 Unknown [id number] 2.16.84 [id number] 1945 Unknown [id number] 2.16.8 [id number] Unknown Carmen BC/BS [id number] Unknown [id number] 2.16.8 [id number] Unknown [id number] 2.16.8 [id number] Social History Date Type Detail Facility [facility] Start: 1945 Sex Assigned At Female F [facility] Goals Date Patient Goal Desired Activity /State Clinical Notes 09-29-2021 to 04-12-2023 Note Date & Type Note Facility 04-12-2023 Note Patient here for fol low up Amulet device insertion and BRIGIDO. She is scheduled for another BRIGIDO next month. Denies chest pain, SOB, palpitations, and lightheadedness/syncope. Review of Systems Cardiovascular: Positive for leg swelling. Skin: Positive for poor wound healing. Musculoskeletal: Positive for muscle weakness. Neurological: Positive for loss of balance. All other systems reviewed and are negative. [facility] 04-12-2023 Note [place] [facility] - [facility] Subjective Percy Kaplan is a 77 [...] post TAVR in May 2018 at [facility]. This was using a 23 mm [...] She had a discussion with her primary office agent Dr. Burnett and they agreed that left [...] leg swelling. She does not feel palpitation. 04/12/2023 She had her SALVADOR device procedure on 02/27/23. She has been feeling well since the procedure. She was finally able to have her boot removed after her foot surgery. She is bearing weight to it and trying to ambulate more. Leg swelling is stable. Denies CP, worsening dyspnea, orthopnea, PND, palpitations, dizziness/LH, syncope, bleeding issues. Review of Systems Constitutional: Negative for chills, fever, malaise/fatigue and weight gain. Cardiovascular: Positive for leg swelling. Negative for chest pain, dyspnea on exertion, irregular heartbeat, near-syncope, orthopnea, palpitations, paroxysmal nocturnal dyspnea and syncope. Hematologic/Lymphatic: Negative for bleeding problem. Does not bruise/bleed easily. Musculoskeletal: Positive for muscle weakness. All other systems reviewed and are negative. Objective Visit Vitals BP 124/58 (BP Location: Right wrist, Patient Position: Sitting) Pulse 58 Ht 1.6 m (5' 3 ) SpO2 92% BMI 44.99 kg/m??? OB Status Postmenopausal Smoking Status Never BSA 2.26 m??? Physical Exam Constitutional: Appearance: She is well-developed. She is obese. She is not ill-appearing. Comments: In wheelchair HENT: Head: Normocephalic and atraumatic. Nose: Nose [...] present. Left lower le+ Pitting Edema present. Skin: General: Skin is warm and dry. Neurological: Ge (more content not included)... [facility] 03-29-2023 Note Discharge Order in faisal culp AVS sent to [facility] via [facility] 03-28-2023 Note She is doing very [...] were reviewed with Dr. ABHIJEET Miller from [place] [facility] simulation [employer] who is one of the experts in left atrial appendage closure using the amulet device and PI of the main Amulet ISSA trial. In addition the images were also reviewed with Dr. Jw Pierre from [place] who is an geophysics teacher and an expert in left atrial appendage [...] the signed recommendation from Dr ABHIJEET Miller: [facility] 03-28-2023 Note [facility]TP CARDIOLOGY INPAT IENT PROGRESS [...] and appears to (more content not included)... [facility] 03-28-2023 Note ([phone]) PC to Jagjit; Jagjit confirmed Patient is active with them for wound care, [facility]. Jagjit added to AVS OTM following: - planning discharge to home with [facility] resuming wound care services [facility] 03-27-2023 Note 03/27/23 3148 Admission Assessment Questions Verify insurance with patient [...] Discharge? No Does the patient have a casework specialist assigned to them through their insurance? No [...] MyChart? No (poor internet service in area) [facility] 03-27-2023 Note Patient: Percy salazar Procedure Information Date/Time: 03/27/2330 Procedure: Left atrial appendage closure (transvenous) Location: [facility] / [facility] (Cath) Providers: Jolene Carr MD Clinical information reviewed: Allergies Meds OB Status Physical Exam Airway Mallampati: III TM distance: >3 FB Neck ROM: full Cardiovascular Rhythm: regular Rate: normal Dental Pulmonary Abdominal Anesthesia Plan ASA 3 (Conscious sedation) Anesthetic plan and risks discussed with patient. Use of blood products discussed with patient who. Plan discussed with attending. Additional Equipment Requests [facility] 03-19-2023 Note [place] Cardiology - [facility] Subjective Percy Kaplan is a 77 [...] post TAVR in May 2018 at [facility]. This was using a 23 mm [...] She had a discussion with her primary office agent Dr. Burnett and they agreed that left [...] 02/12/2023 129 Potassium (more content not included)... [facility] 02-27-2023 Note ------ Attestation signed by Jolene [...] No hemodynamic complications noted. Rochelle Diane MD Applications Development Analyst - PGY5 [facility] 02-27-2023 Note Patient: Percy salazar Procedure Information Date/Time: 02/27/23 1015 Procedure: Cardioversion/defibrillation Location: [facility] HOLDING ROOM / [facility] (Cath) Providers: Jolene Carr MD Clinical information reviewed: Allergies Meds OB Status Physical Exam Airway Mallampati: III TM distance: >3 FB Neck ROM: full Cardiovascular Rhythm: regular Rate: normal Dental Pulmonary Abdominal Anesthesia Plan Additional Equipment Requests [facility] 01-12-2023 Note [place] Cardiology - [facility] Subjective Percy Kaplan is a 77 [...] post TAVR in May 2018 at [facility]. This was using a 23 mm [...] She had a discussion with her primary office agent Dr. Burnett and they agreed that left [...] coenzyme Q-10 (more content not included)... [facility] 11-29-2022 Note I called and spoke t o patient. Explained the LAAO procedure, pre/post-procedure imaging, post-procedure medications, risks and benefits. She would like to proceed with the procedure. She is pending a video capsule study. Please schedule her for an appt with Dr. Carr for further discussion. [facility] 11-14-2022 Note UTP CARDIOLOGY PROGR ESS NOTE [...] she p (more content not included)... [facility] 11-14-2022 Note Patient here for 4 w chemehuevi follow up GI visit. She underwent upper and lower scopes at [facility]. Per patient, Dr. Cosme cleared her to resume Xarelto, but she has not done so yet. She wanted to discuss with Dr. Burnett first. Still denies chest pain, SOB, palpitations, and bleeding. Patient expressed interest in the Watchman/Amulet device. Review of Systems Musculoskeletal: Positive for muscle weakness. All other systems reviewed and are negative. [facility] 10-18-2022 Note UTP CARDIOLOGY PROGR ESS NOTE [...] weights, I (more content not included)... [facility] 10-18-2022 Note Patient here for fol low up [facility] discharge for GI bleed. She takes Xarelto for afib, but this was stopped, along with aspirin. Chest tightness and SOB has resolved and she's feeling much better. Doing more walking throughout her house. Denies lightheadedness and falls. Review of Systems Musculoskeletal: Positive for muscle weakness. All other systems reviewed and are negative. 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 This was using a 23 mm [...] Rfl: Recent (more content not included)... [facility] 07-17-2022 Note Patient here for 6 m o follow up PAF, aortic valve disorder, CHF, carotid artery stenosis, and hypertension. She had echo in Feb 2022 at [facility]. Denies chest pain, SOB, palpitations, and bleeding on Eliquis. Had routine labs in April 2022. Review of Systems Respiratory: Positive for cough. Musculoskeletal: Positive for arthritis, back pain, joint pain, muscle weakness and myalgias. Neurological: Positive for loss of balance. All other systems reviewed and are negative. [facility] 07-17-2022 Note UTP CARDIOLOGY PROGR ESS NOTE [...] Patient verbal (more content not included)... [facility] 03-22-2022 Note PROCEDURE: XR ANKLE LT MIN [...] authenticated by: FABRICIO BANKS Date: 2022-03-22 10:42 [facility] 09-29-2021 Note PROCEDURE: XR ANKLE LT [...] authenticated by: GENE BERMUDEZ Date: 2021-09-29 10:11 [facility] Evaluation note No assessment information [facility] Work Phone: Summary Purpose Family History No Family History Records Found Relationship Condition Age at Onset Recorded Date/T oliver Not Specified Malignant neoplasm of pancreas Unknown father Malignant neoplasm of kidney Unknown Malignant neoplasm of liver Unknown Advance Directives No Advanced Directives Records Found Advance Directive Response Recorded Date/ Time Advance Directives No October 10:12am Hospital Course Note MR#: [id number] I [facility] Pt. Name: Percy Kaplan Admitted: 03/09/2018 Discharged: [...] (more content not included)... Note MR#: [id number] [facility] Pt. Name: Percy Kaplan Admitted: 03/18/2018 [...] was no chest pain. She went to [facility], was found to have elevated BNP. [...] and content) DATE CREATED AUTHOR 03/26/2018 [facility] DATE CREATED AUTHOR AUTHOR'S ORGANIZ ATTRE 05/10/2022 [facility] DATE CREATED AUTHOR AUTHOR'S ORGANIZ ATION [facility]2022 [facility] DATE CREATED AUTHOR AUTHOR'S ORGANIZ ATION 01/17/2023 [facility] DATE CREATED AUTHOR AUTHOR'S ORGANIZ ATION 04/26/2023 [facility] Care Teams (unrecognized sec tion and [...] ON THE PRIMARY CLINICAL RECORDS. [facility] [employer] provides no warranty or guarantee of the accuracy or completeness of information in this document.
[2023-04-30 11:34] LABS: Basophils Absolute Auto 0.1 10^3/uL (0.0-0.1); Basophils Percent Auto 0.7 % (0.2-2.0); Eosinophils Absolute Auto 0.2 10^3/uL (0.0-0.7); Eosinophils Percent Auto 2.5 % (0.9-7.0); Hematocrit 33.5 % (36.0-48.0); Hemoglobin 9.7 g/dL (12.0-16.0); Immature Granulocytes Abs Auto 0.03 10^3/uL (0.00-0.03); Immature Granulocytes Pct Auto 0.4 % (0.0-0.5); Lymphocytes Absolute Auto 1.1 10^3/uL (1.2-3.8); Lymphocytes Percent Auto 12.5 % (20.5-60.0); Mean Corpuscular Hemoglobin 23.4 pg (26.7-34.0); Mean Corpuscular Volume 80.7 fL (81.0-99.0); Mean Platelet Volume 9.8 fL (9.5-13.5); Monocytes Absolute Auto 0.5 10^3/uL (0.3-0.8); Monocytes Percent Auto 5.3 % (1.7-12.0); Neutrophils Absolute Auto 6.6 10^3/uL (1.4-6.5); Neutrophils Percent Auto 78.6 % (43.0-75.0); Platelet Count 232 10^3/uL (150-450); Red Blood Count 4.15 10^6/uL (4.20-5.40); Red Cell Distribution Width 16.5 % (11.0-15.0); White Blood Count 8.5 10^3/uL (4.0-11.0)
[2023-04-30 13:14] LABS: Microalbumin Urine Random <1.3 mg/dL (<=30.0)
[2023-04-30 13:25] LABS: Alanine Aminotransferase 20 U/L (14-59); Albumin Globulin Ratio 0.8; Albumin Level 3.5 g/dL (3.4-5.0); Alkaline Phosphatase 78 U/L (46-116); Anion Gap 18.2; Aspartate Amino Transferase 14 U/L (15-37); BUN Creatinine Ratio 23.4; Bilirubin Direct 0.1 mg/dL (0.0-0.2); Bilirubin Total 0.6 mg/dL (0.2-1.0); Carbon Dioxide 25.4 mmol/L (21.0-32.0); Chloride 94 mmol/L (98-107); Cholesterol 146 mg/dL (<=200); Estimated GFR (African America 31 (>=60); Estimated GFR (Non-African Ame 25 (>=60); Globulin 4.4 g/dL; Glucose 229 mg/dL (74-106); HDL Cholesterol 49 mg/dL (40-60); Potassium 4.6 mmol/L (3.5-5.1); Sodium 133 mmol/L (136-145); Thyroid Stimulating Hormone 1.899 uIU/mL (0.358-3.740); Total Protein 7.9 g/dL (6.4-8.2); Triglycerides 157 mg/dL (<=150); VLDL CHOLESTEROL 31.4 mg/dL
[2023-04-30 13:49] LABS: Estimated Average Glucose 220 mg/dL; Glycohemoglobin A1C 9.3 % (4.5-6.2)
== END 2023-04-30 10:53 | disposition home or self-care (01) ==
LOC: LAB 10:54
PROVIDERS: PCP Family Medicine; Visit Provider Family Medicine
DX: E11.65 Type 2 diabetes mellitus with hyperglycemia (principal); N18.32 Chronic kidney disease, stage 3b; I10 Essential (primary) hypertension; Z79.899 Other long term (current) drug therapy; E78.5 Hyperlipidemia, unspecified; E03.9 Hypothyroidism, unspecified
CPT/HCPCS: 36415; 80048; 80061; 80076; 82043; 82306; 83036; 84439; 84443; 84481; 85025

== ENCOUNTER 2023-05-02 09:11 | Outpatient (OUT) | payer MEDICARE, SELFPAY ==
--- NOTE | 2023-05-02 | XR_ITS ---
The [address] [address] Patient Name: PERCY SAMUELS MRN: [id number] date: 1945 Sex: F Assigned Patient Location: Current Patient Location: Accession/Order Number: [id number] Exam Date: 05/02/2023 09:30 Report Date: 05/03/2023 05:57 At the request of: ROSA ROSA Procedure: XR foot LT min 3V PROCEDURE: XR foot LT min 3V, XR ankle LT min 3V HISTORY: LEFT FOOT PAIN , left ankle pain COMPARISON: XR left foot and ankle 03/21/2023 FINDINGS: BONES:Ankle and hindfoot fusion via intramedullary melissa and locking screws. Stable lucency within distal anterior cortex of tibia surrounding the distal most tibial screw which may be secondary to surgical placement or movement and erosion. This same screw enters through the posterior calcaneus passes through the tibia and medullary melissa and extends 16 mm anterior to the tibia into the soft tissues; unchanged. Prior resection of lateral malleolus. Marked osteopenia of the foot, likely from disuse. SOFT TISSUES:Atherosclerotic disease. EFFUSION:None visible. OTHER: Negative. XR/XR foot LT min 3V IMPRESSION: 1. Stable surgical changes as detailed above without evidence of hardware failure. Please see details above regarding screw extending into anterior soft tissues of distal lower extremity. 2. Diffuse osteopenia. Electronically authenticated by: GENE BERMUDEZ Date: 05/03/2023 05:57
--- NOTE | 2023-05-02 | XR_ITS ---
The [address] [address] Patient Name: PERCY SAMUELS MRN: [id number] date: 1945 Sex: F Assigned Patient Location: Current Patient Location: Accession/Order Number: [id number] Exam Date: 05/02/2023 09:30 Report Date: 05/03/2023 05:57 At the request of: ROSA ROSA Procedure: XR ankle LT min 3V PROCEDURE: XR foot LT min 3V, XR ankle LT min 3V HISTORY: LEFT FOOT PAIN , left ankle pain COMPARISON: XR left foot and ankle 03/21/2023 FINDINGS: BONES:Ankle and hindfoot fusion via intramedullary melissa and locking screws. Stable lucency within distal anterior cortex of tibia surrounding the distal most tibial screw which may be secondary to surgical placement or movement and erosion. This same screw enters through the posterior calcaneus passes through the tibia and medullary melissa and extends 16 mm anterior to the tibia into the soft tissues; unchanged. Prior resection of lateral malleolus. Marked osteopenia of the foot, likely from disuse. SOFT TISSUES:Atherosclerotic disease. EFFUSION:None visible. OTHER: Negative. XR/XR ankle LT min 3V IMPRESSION: 1. Stable surgical changes as detailed above without evidence of hardware failure. Please see details above regarding screw extending into anterior soft tissues of distal lower extremity. 2. Diffuse osteopenia. Electronically authenticated by: GENE BERMUDEZ Date: 05/03/2023 05:57
--- OUTSIDE RECORDS SUMMARY | 2023-05-02 09:33 | XMS_ITS | CCD ---
Author Organization [facility] Care Team Providers Care Metal Pickling Equipment Operator Name Role Phone CYNTHIAZEKESTEPHANIE Atkinson Referring Unavailable SELF, REFERRED Primary Care Unavailable RAGHAVENDRA PERRY Admitting Unavailable DAVID SIMMONS Attending Unavailable HI Procedure Practitioner Unavailab OMEGA Ramirez Surgeon Unavailable HI Procedure Practitioner Unavailab NATA Tinoco ABD Surgeon [...] DR GUMARO Fernandes Primary Care Unavailable [facility] GUM[facility] Fernandes Primary Care Unavailable [place], DR FABRICIO Novak Consulting Unavailable HIGHLANDER, ROSA Wadsworth Admitting Unavailable HIGHLANDER, ROSA Wadsworth Attending Unavailable HIGHLANDER, ROSA Wadsworth Consulting Unavailable Mikey NIELSON Attending Unavailable MD Joe Cosme Attending Provider MD Gumaro Ordonez Primary Care Provider [phone] Joe Cosme Attending Unavailable Gumaro Ordonez Primary [...] BURNETT Attending Unavailable JOLENE CARR Attending Unavailable GUMARO ORDONEZ Attending Unavailable Allergies Allergy Classification Reported Allergen(s) Allergy Type Date of Onset Reaction(s) Facility (3 sources) Sulfonamides (Antibiotic); Translations: [SULFA (SULFONAMIDE ANTIBIOTICS)] Drug allergy (disorder) 07-11-2013 [facility] Repository (1 source) Sulfonamides (Antibiotic) Drug allergy (disorder) 10-27-2022 [facility] Repository Medications Current Medications Medication Drug [...] disease (1 source) Atherosclerotic heart disease of [place] coronary artery without angina pectoris; Translations: [ATHSCL HEART DISEASE OF [place] CORONARY ARTERY W/O ANG PCTRS] Onset: 9 [...] 9 Chronic Other aftercare (1 source) Other mcfp (current) drug therapy; Translations: [OTH MANAGER PEDIATRIC CURRENT DRUG THERAPY] Onset: 3 Episodic Other aftercare (1 source) skilled nursing (current) use of anticoagulants; Translations: [terminal make up operator (current) use of anticoagulants] Onset: 3 [...] Range Facility Office Visiton 04-12-2023 Follow-up visit [id number] Percy Kaplan 1945 F Date Provider Department Center 04/12/2023 [facility] Family History Problem Relation Age of Onset Aortic stenosis Father Other Father Family Status - Relation Status Age at Father Level of Service:10794 HI OFFICE/OUTPATIENT ESTABLISHED LOW MDM 20 MIN Normal [facility] 30on 03-29-2023 30 The patient is Moderately [...] and behaviors that affect risk of falls [place] fall precautions as indicated by assessment Educate [...] and maintained or improved Outcome: Progressing Normal [facility] DSon 03-29-2023 DS -- Attestation signed [...] occluder device/amulet. 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 She has a complex prior medical history including paroxysmal atrial fibrillation, who needs long-term anticoagulation therapy to reduce the risk of stroke given elevated EFF2GJ6-FZJi score of 6 due to age, gender, hypertension, diabetes, and heart failure. she is not a good candidate for long-term anticoagulation due to history of gastrointestinal bleeding. Following evaluation in Cardiology Clinic, percutaneous SALVADOR closure procedure was recommended as an alternative to long-term anticoagulation. She was admitted to [facility] for observation. Tolerated procedure well, [...] reduce the risk of stroke given elevated EVJ8DO7-IAEk score of 6 due to age, gender, [...] valve flow. (more content not included)... Normal [facility] POCT GLUCOSE METER UNSOLICIT ED RESULTSon 03-29-2023 Glucose [Mass/Vol] 262 mg/dL High 70-105 [facility] Comment on above: Order Comment: Waive d Testing in the ED is performed under the ED CLIA certificate #[id number]. Result Comment: [email or web address] Performed By: #### L [id number] ####[facility] (BEAKER)[address] [place] [address] Glucose [Mass/Vol] 228 mg/dL High 70-105 [facility] Comment on above: Order Comment: Waive d Testing in the ED is performed under the ED CLIA certificate #[id number]. Result Comment: asav ill Performed By: #### L [id number] #### [facility] (BEAKER) [address] [place] [address] 30on 03-28-2023 30 The patient is Moderately Stable - Low risk of patient condition declining or worsening The patient's goals for the shift include comfort and rest The clinical goals for the shift include stable vs Over the shift, the patient did make progress toward her goals. Normal [facility] 30 The patient is Moderately Stable [...] and behaviors that affect risk of falls [place] fall precautions as indicated by assessment Problem: Discharge Planning Goal: Discharge to home or other facility with appropriate resources Outcome: Progressing Problem: Chronic Conditions and Co-morbidities Goal: Patient's chronic conditions and co-morbidity symptoms are monitored and maintained or improved Outcome: Progressing Normal [facility] 30 The patient is Moderately Stable - Low risk of patient condition declining or worsening The patient's goals for the shift include comfort and rest The clinical goals for the shift include stable VS Over the shift, the patient did make progress toward her goals. Normal [facility] ANEXander 03-28-2023 ANES -- Attestation signed by Kayode [...] Procedure: Left atrial appendage closure (transvenous) Location: [facility] FORMING TUBE SELECTOR 3 / [facility] (Cath) Providers: Jolene Carr MD Clinical information reviewed: Allergies Physical Exam Airway Mallampati: III TM distance: >3 FB Neck ROM: full Cardiovascular Rhythm: regular Rate: normal Dental Pulmonary Abdominal Anesthesia Plan ASA 3 (Conscious sedation) Anesthetic plan and risks discussed with patient. Use of blood products discussed with patient who. Plan discussed with attending. Additional Equipment Requests Normal [facility] BASIC METABOLIC PANELon 03-09 Anion gap [Moles/Vol] 11 mmol/L Normal 7-20 [facility] Comment on above: Performed By: #### L [id number] #### [facility] ([facility]) [address] [place] [address] Calcium [Mass/Vol] 8.7 mg/dL Normal 8.6-10.3 [facility] Comment on above: Performed By: #### L [id number] #### [facility] ([facility]) [address] [place] [address] Chloride [Moles/Vol] 103 mmol/L Normal 98-107 [facility] Comment on above: Performed By: #### L [id number] #### [facility] (BEAKER) [address] [place] [address] CO2 [Moles/Vol] 25 mmol/L Normal 21-31 [facility] Comment on above: Performed By: #### L [id number] #### [facility] ([facility] [address] [place] [address] Creatinine [Mass/Vol] 1.30 mg/dL High 0.60-1.20 [facility] Comment on above: Performed By: #### L [id number] #### [facility] ([facility] [address] [place] [address] GLOMERULAR FILTRATION RATE ML/MIN/1.73 SQ M.PREDICTED 42.6 mL/min/1.73m*2 Low >60.0 [facility] Comment on above: Result Comment: The [facility]???s estimated glomerular filtration rate (eGFR) will [...] Performed By: #### L [id number] #### [facility] ([facility]) [address] [place] [address] Glucose [Mass/Vol] 213 mg/dL High 70-100 [facility] Comment on above: Performed By: #### L [id number] #### [facility] ([facility]) [address] [place] [address] Potassium [Moles/Vol] 3.9 mmol/L Normal 3.5-5.1 [facility] Comment on above: Performed By: #### L [id number] #### [facility] ([facility]) [address] [place] [address] Sodium [Moles/Vol] 135 mmol/L Low 136-145 [facility] Comment on above: Performed By: #### L [id number] #### [facility] ([facility]) [address] [place] [address] Urea nitrogen [Mass/Vol] 34 mg/dL High 7-25 [facility] Comment on above: Performed By: #### L [id number] #### [facility] ([facility]) [address] [place] [address] UREA NITROGEN/CREATININE (MASS RATIO) IN SER/PLAS 26.2 Normal [facility] Comment on above: Performed By: #### L [id number] #### [facility] ([facility]) [address] [place] [address] CBCon 03-28-2023 Erythrocyte distribution width (RBC) [Ratio] 17.9 % High 11.5-15.0 [facility] Comment on above: Performed By: #### L [id number] #### [facility] ([facility]) [address] [place] [address] ERYTHROCYTE MEAN CORPUSCULAR HEMOGLOBIN CONCENTRATION (G/DL) BY AUTOMATED 31.5 g/dL Low 32.0-35.0 [facility] Comment on above: Performed By: #### L [id number] #### [facility] ([facility]) [address] [place] [address] Hematocrit (Bld) [Volume fraction] 31.7 % Low 36.0-48.0 [facility] Comment on above: Performed By: #### L [id number] #### [facility] ([facility]) [address] [place] [address] Hemoglobin (Bld) [Mass/Vol] 10.0 g/dL Low 12.0-15.0 [facility] Comment on above: Performed By: #### L [id number] #### [facility] ([facility]) [address] [place] [address] MCH (RBC) [Entitic mass] 24.8 pg Low 27.0-33.0 [facility] Comment on above: Performed By: #### L [id number] #### [facility] ([facility]) [address] [place] [address] MCV (RBC) [Entitic vol] 78.5 fL Low 82.0-98.0 [facility] Comment on above: Performed By: #### L [id number] #### [facility] ([facility]) [address] [place] [address] PLATELETS (10*3/UL) IN BLOOD AUTOMATED COUNT 194 10*3/uL Normal 150-400 [facility] Comment on above: Performed By: #### L [id number] #### [facility] ([facility]) [address] [place] [address] RBC (Bld) [#/Vol] 4.04 10*6/uL Normal 3.80-5.00 [facility] Comment on above: Performed By: #### L [id number] #### [facility] ([facility]) [address] [place] [address] WBC (Bld) [#/Vol] 7.21 10*3/uL Normal 4.00-10.60 [facility] Comment on above: Performed By: #### L [id number] #### [facility] ([facility]) [address] [place] [address] HPon 03-28-2023 HP -- Attestation signed by [...] with the patient and she's agreeable. Normal [facility] POCT GLUCOSE METER UNSOLICIT ED RESULTSon 03-28-2023 Glucose [Mass/Vol] 259 mg/dL High 70-105 [facility] Comment on above: Order Comment: Waive d Testing in the ED is performed under the ED CLIA certificate #[id number]. Result Comment: [email or web address] Performed By: #### L [id number] #### [facility] ([facility]) [address] [place] [address] Glucose [Mass/Vol] 306 mg/dL High 70-105 [facility] Comment on above: Order Comment: Waive d Testing in the ED is performed under the ED CLIA certificate #[id number]. Result Comment: [email or web address] Performed By: #### L [id number] #### [facility] ([employer]) [address] [place] [address] Glucose [Mass/Vol] 232 mg/dL High 70-105 [facility] Comment on above: Order Comment: Waive d Testing in the ED is performed under the ED CLIA certificate #[id number]. Result Comment: [email or web address] Performed By: #### L [id number] #### [facility] ([employer]) [address] [place] [address] Glucose [Mass/Vol] 245 mg/dL High 70-105 [facility] Comment on above: Order Comment: Waive d Testing in the ED is performed under the ED CLIA certificate #[id number]. Result Comment: [email or web address] Performed By: #### L [id number] #### [facility] ([facility]) [address] [place] [address] 30on 03-27-2023 30 The patient is Moderately [...] and behaviors that affect risk of falls [place] fall precautions as indicated by assessment Educate patient/family on patient safety, including physical limitations Problem: Discharge Planning Goal: Discharge to home or other facility with appropriate resources Outcome: Progressing Problem: Chronic Conditions and Co-morbidities Goal: Patient's chronic conditions and co-morbidity symptoms are monitored and maintained or improved Outcome: Progressing Normal [facility] HPon 03-27-2023 HP H&P reviewed. Hx of TAVR in May 2018 using a [place] HOLLIS 23 mm balloon expandable valve. Persistent atrial fibrillation with QVN2WC6-BWFt score of 6. Poor candidate for long-term [...] were addressed and answered. Rochelle Diane MD Bi Analyst - PGY5 [facility] Normal [facility] MRSA/MSSA DNA NASALon 2023 MRSA DNA Negative Normal Negative [facility] Comment on above: Order Comment: Testi [...] preclude nasal colonization. Performed By: #### L [id number] ####[facility] (BEAKER)[address] [place] [address] MSSA DNA Negative Normal Negative [facility] Comment on above: Order Comment: Testi [...] preclude nasal colonization. Performed By: #### L [id number] ####[facility] ([facility])[address] [place] [address] POCT GLUCOSE METER UNSOLICIT ED RESULTSon 03-27-2023 Glucose [Mass/Vol] 168 mg/dL High 70-105 [facility] Comment on above: Order Comment: Waive d Testing in the ED is performed under the ED CLIA certificate #[id number]. Result Comment: [email or web address] Performed By: #### L [id number] #### [facility] ([facility]) [address] [place] [place] [address] Glucose [Mass/Vol] 255 mg/dL High 70-105 [facility] Comment on above: Order Comment: Waive d Testing in the ED is performed under the ED CLIA certificate #[id number]. Result Comment: [email or web address] Performed By: #### L [id number] ####[facility] ([facility])[address] [place] [address] Glucose [Mass/Vol] 310 mg/dL High 70-105 [facility] Comment on above: Order Comment: Waive d Testing in the ED is performed under the ED CLIA certificate #[id number]. Result Comment: [email or web address] Performed By: #### L [id number] #### [facility] ([facility]) [address] [place] [place] [address] TYPE AND SCREENon 03-27-2023 AB SCREEN Negative Normal [facility] Comment on above: Performed By: #### L [id number] #### [facility] BLOOD BANK , ABO group Nom (Bld) A Normal [facility] Comment on above: Performed By: #### L [id number] #### [facility] BLOOD BANK , RH TYPE IN BLOOD Positive Normal [facility] Comment on above: Performed By: #### L [id number] #### [facility] BLOOD BANK , HPon 03-19-2023 [facility] - [facility] Subjective Percy Kaplan is a 77 [...] status post TAVR in May 2018 at [facility]. This was using a 23 mm [...] She had a discussion with her primary title i instructional assistant Dr. Burnett and they agreed that left [...] 129 Potassium (more content not included)... 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 [facility] NURSNOTEon 02-27-2023 NURSNOTE RN educated pt on d/ c instructions. RN encouraged pt to voice any questions or concerns. Pt verbalizes no questions or concerns at this time. Pt was wheeled off of unit with all of belongings. Normal [facility] NURSNOTE Bedside swallow stud y completed and passed. Normal [facility] Orders Onlyon 02-22-2023 Orders Only [id number] Percy Kaplan 1945 Provider Department Center 02/22/2023 895-GABRIEL DAN CARD [facility] Family History Problem Relation Age of Onset Aortic stenosis Father Other Father Family Status - Relation Status Age at Father Normal [facility] Office Visiton 01-12-2023 Follow-up visit [id number] Percy Kaplan 1945 Date Provider Department Center 01/12/2023 Minal-JOLENE CARR CARD [facility] Family History Problem Relation Age of Onset Aortic stenosis Father Other Father Family Status - Relation Status Age at Father Level of Service:47330 HI OFFICE/OUTPATIENT ESTABLISHED HIGH MDM 40-54 MIN [facility] Office Visiton 11-14-2022 Follow-up visit [id number] Percy Kaplan 1945 Provider Department [place] 11/14/2022 3848-DEN BURNETT CARD [facility] Family History Problem Relation Age of Onset Aortic stenosis Father Other Father Family Status - Relation Status Age at Father Level of Service:32594 HI OFFICE/OUTPATIENT ESTABLISHED LOW MDM 20-29 MIN [facility] Glucose Glucometer (BldC) [M ass/Vol]Ordered By: Joe Cosme on 10-27-2022 Glucose [Mass/Vol] 220 mg/dL [facility] Comment on above: Random Glucose Refer ence Range is dependent on time and content of last meal. Glucose of more than 200 mg/dL in a nonstressed, ambulatory subject supports the diagnosis of Diabetes Mellitus. Glucose Poct Glucometerson 0 10-27-2022 Commemt1 Glu2: Cleaned Meter Normal [facility] Comment on above: Result Comment: PERF ORMED BY: [facility] [address] [place] [address] PATHOLOGIST CHIEF SPECIALIST LEED NORMA MONTANA M.D. Performed By: #### G LULS #### Point of Care testing , Glucose [Mass/Vol] 220 mg/dL Normal [facility] Comment on above: Result Comment: [place] Glucose Reference Range is dependent on time and content of last meal. Glucose of more than 200 mg/dL in a nonstressed, ambulatory subject supports the diagnosis of Diabetes Mellitus. Performed By: #### G MELODIE #### Point of Care testing , Ryan 10-27-2022 L -- ---- Specimen: [id number] Received: 10/27/22 Status: TRAVIS Casas Num: [id number] Spec Type: Surgical Subm Dr: Joe Cosme MD Tissues: A Colon Biopsy (ASCND COL) Procedures: MILLA/Mike Schmidt/Awa L4 ---- Age/ Patient Sex Location Account Attending Physician ---- Percy Kaplan 77/F [id number] Joe Cosme MD ---- SPEC NUM: [id number] RECD: 10/27/22 STATUS: TRAVIS OSBORNE NUM: [id number] DELMY: 10/27/22- DR: Joe Cosme MD ENTERED: 10/27/[address] [facility] [address]: SPEC TYPE: Surgical DEPT: S ENTERED BY: [id number] RECV BY: [id number] ORDERED: HE/2, Gross/Micro L4 ORDERED: HE/2, Gross/Micro [...] microscopic examination confirms the diagnosis. CPT Codes 08020 ---- ---- Specimen: [id number] Received: 10/27/22 Status: TRAVIS Fany Num: [id number] Spec Type: Surgical Subm Dr: Joe Cosme MD Tissues: A Colon Biopsy (ASCND COL) Procedures: HE/2, Gross/Micro L4 ---- Patient: Percy Kaplan [id number] (Continued) ---- Signed (signature on file) Akshat-Ariel Dominguez MD 10/30/22 1331 Normal [facility] No Panel InformationOrdered By: Joe Cosme on 10-27-2022 Bedside Glucose Comment Glu2: cleaned meter [facility] Office Visiton 10-18-2022 Follow-up visit [id number] Percy Kaplan 1945 F Date Provider Department Center 10/18/2022 3848-DEN BURNETT [facility] Family History Problem Relation Age of Onset Aortic stenosis Father Other Father Family Status - Relation Status Age at Father Level of Service:38976 HI OFFICE/OUTPATIENT ESTABLISHED MOD MDM 30-39 MIN Normal [facility] Outside Colonoscopyon 2022 Outside Colonoscopy [id number]#1.00 CD:127 Normal [facility] Lab Reportson 10-16-2022 Lab Reports [id number]#1.0 0CD:127 Normal [facility] Lab Reports [id number]#1.0 0CD:127 Normal [facility] Lab Reports [id number]#1.00 CD:127 Normal [facility] Lab Reports [id number]#1.00 CD:127 Normal [facility] Outside Colonoscopyon 2022 Outside Colonoscopy [id number]#1.00 CD:127 Normal [facility] Consultation Noteon 10-13-19 Consultation Note [id number]#1.0 0CD:127 Normal [facility] Consultation Note [id number]#1.00 CD:127 Normal [facility] Lab Reportson 10-12-2022 Lab Reports [id number]#1.00 CD:127 Normal [facility] Office Visiton 09-22-2022 Follow-up visit [id number] Percy Kaplan 1945 F Date Provider Department Center 09/22/2022 367-JOLENE CARR EDEN Ge Family History Problem Relation Age of Onset Aortic stenosis Father Other Father Family Status - Relation Status Age at Father Level of Service:03831 HI OFFICE/OUTPATIENT ESTABLISHED MOD MDM 30-39 MIN Reason for Visit and Comments: Follow-up [394182] - Patient is here today per Dr burnett request Valve Disorder [3372] [facility] 36on 08-14-2022 36 Pt called in requesting a refill [facility] Office Visiton 07-17-2022 Follow-up visit [id number] Che 1945 F Date Provider Department Center 07/17/2022 3848-DEN BURNETT EDEN Ge Family History Problem Relation Age of Onset Aortic stenosis Father Other Father Family Status - Relation Status Age at Father Level of Service:34621 HI OFFICE/OUTPATIENT ESTABLISHED LOW MDM 20-29 MIN Normal [facility] CBC AUTO DIFFon 05-01-2022 BASO # 0.1 103/ul Normal 0.0-0.1 [facility] Comment on above: Performed By: #### C BC ####[facility] [address] [place] [address]Dr. Sugey Dominguez Basophils/100 WBC (Bld) 0.8 % Normal 0.2-2.0 [facility] [place] Comment on above: Performed By: #### C BC ####[facility] [place] C[address] [place], [place] [address]Dr. Sugey Dominguez EO # 0.2 103/ul Normal 0.0-0.7 [facility] [place] Comment on above: Performed By: #### C BC ####[facility] [place] Drpcoyvx[address] [place], [place] [address]Dr. Sugey Dominguez Eosinophils/100 WBC (Bld) 3.5 % Normal 0.9-7.0 [facility] [place] Comment on above: Performed By: #### C BC ####[facility] [place] Gy[address] [place], [place] [address]Dr. Sugey Dominguez Erythrocyte distribution width (RBC) [Ratio] 13.6 % Normal 11.0-15.0 [facility] Comment on above: Performed By: #### C BC ####[facility] [place] N[address] [place], [place] [address]Dr. Sugey Dominguez Hematocrit (Bld) [Volume fraction] 40.7 % Normal 36.0-48.0 [facility] [place] Comment on above: Performed By: #### C BC ####[facility] [place] [address] [place], [place] [address]Dr. Sugey Dominguez Hemoglobin (Bld) [Mass/Vol] 13.5 g/dL Normal 12.0-16.0 [facility] [place] Comment on above: Performed By: #### C BC ####[facility] [place] [address] [place], [place] [address]Dr. Sugey Dominguez IG # 0.03 10e3/ul Normal 0.00-0.03 [facility] [place] Comment on above: Performed By: #### C BC ####[facility] [place] [address] [place] [id number]. Mainecatherine Dominguez IG % 0.5 % Normal 0.0-0.5 [facility] Comment on above: Performed By: #### C BC ####[facility] [place] [address]pro[address] [place] [id number]. Sugey Dominguez LYMPH # 1.5 103/ul Normal 1.2-3.8 [facility] [place] Comment on above: Performed By: #### C BC ####[facility] [place] [address] [place] [address]Dr. Mainecatherine Dominguez Lymphocytes/100 WBC (Bld) 23.1 % Normal 20.5-60.0 [facility] Comment on above: Performed By: #### C BC ####[facility] [place] [address]etlvf[address] [place] [address]Dr. Sugey Dominguez MANUAL DIFF REQ NO Normal [facility] Comment on above: Performed By: #### C BC ####[facility] [place] Bes[address]xcw[address] [place] [id number]. Sugey Dominguez MCH (RBC) [Entitic mass] 30.8 pg Normal 26.7-34.0 [facility] Comment on above: Performed By: #### C BC ####[facility] [place] [address] [place] [id number]. Sugey Dominguez MCHC (RBC) [Mass/Vol] 33.2 g/dL Normal 29.9-35.2 [facility] [place] Comment on above: Performed By: #### C BC ####[facility] [place] [address] [place] [id number]. Sugey Dominguez MCV (RBC) [Entitic vol] 92.7 fL Normal 81.0-99.0 [facility] [place] Comment on above: Performed By: #### C BC ####[facility] [place] Nime[address] [place], [place] [address]Dr. Sugey Dominguez MONO # 0.4 103/ul Normal 0.3-0.8 [facility] [place] Comment on above: Performed By: #### C BC ####[facility] [place] [address]cdbo[address] [place] [id number]. Sugey Dominguez Monocytes/100 WBC (Bld) 6.8 % Normal 1.7-12.0 [facility] [place] Comment on above: Performed By: #### C BC ####[facility] [place] [address] [place] [id number]. Sugey Dominguez NEUT # 4.2 103/ul Normal 1.4-6.5 [facility] [place] Comment on above: Performed By: #### C BC ####[facility] [place] [address] [place] [id number]. Sugey Dominguez Neutrophils/100 WBC (Bld) 65.3 % Normal 43.0-75.0 [facility] Comment on above: Performed By: #### C BC ####[facility] [place] [address] [place] [address]Dr. Sugey Dominguez Platelet mean volume (Bld) [Entitic vol] 10.1 fL Normal 9.5-13.5 [facility] Comment on above: Performed By: #### C BC ####[facility] [place] [address] [place] [id number]. Sugey Dominguez PLT 166 103/ul Normal 150-450 [facility] [place] Comment on above: Performed By: #### C BC ####[facility] [place] [address]jl[address] [place] [id number]. Sugey Dominguez RBC 4.39 106/ul Normal 4.20-5.40 [facility] [place] Comment on above: Performed By: #### C BC ####[facility] [place] [address]ryg[address] [place] [id number]. Sugey Dominguez WBC 6.4 103/ul Normal 4.0-11.0 [facility] [place] Comment on above: Performed By: #### C BC ####[facility] [place] [address] [place] [id number]. Sugey Dominguez FREE T3on 05-01-2022 FREE T3 1.80 pg/mlL Critically low 2.18-3.98 [facility] Comment on above: Performed By: #### L IPID, FT3, TSH, LIVER, BMP #### [facility] [place] Laboratory [address] [place] [address] [address] Sugey Dominguez FREE T4on 05-01-2022 Free T4 [Mass/Vol] 1.40 ng/dL Normal 0.76-1.46 [facility] Comment on above: Performed By: #### F T4 #### [facility] [place] Laboratory [address] [place] [address] [address] Sugey Dominguez GLYCOHEMOGLOBIN A1Con 2022 ADA RECOMMENDATION SEE BELOW Normal [facility] Comment on above: Result Comment: ADA RECOMMENDED LIMIT 4.0 - 6.0 ADA THERAPEUTIC TARGET < 7.0 ACTION SUGGESTED > 7.0 Performed By: #### A 1C #### [facility] [place] Laboratory [address] [place] [address] Dr. Sugey Dominguez Glucose [Mass/Vol] 174 mg/dL Normal [facility] Comment on above: Performed By: #### A 1C #### [facility] [place] Laboratory [address] [place] [address] Dr. Sugey Dominguez HbA1c (Bld) [Mass fraction] 7.7 % Critically high 4.5-6.2 [facility] Comment on above: Performed By: #### A 1C #### [facility] [place] Laboratory [address] [place] [address] Dr. Sugey Dominguez LIPID PROFILEon 05-01-2022 CHOL-HDL RATIO NORM SEE BELOW Normal [facility] Comment on above: Result Comment: 3.3 - 4.4 LOW RISK 4.4 - 7.1 AVERAGE RISK 7.1 - 11.0 MODERATE RISK >11.0 HIGH RISK Performed By: #### L IPID, FT3, TSH, LIVER, BMP #### [facility] [place] [facility] [address] [address] [address] Sugey Dominguez Cholesterol [Mass/Vol] 176 mg/dL Normal <=200 Th [facility] Comment on above: Performed By: #### L IPID, FT3, TSH, LIVER, BMP #### [facility] [place] Laboratory [address] [place] [address] Dr. Sugey Dominguez Cholesterol in HDL [Mass/Vol] 48 mg/dL Normal 40-60 [facility] Comment on above: Performed By: #### L IPID, FT3, TSH, LIVER, BMP #### [facility] [place] [facility] [address] [address] [address] Sugey Dominguez Cholesterol in LDL [Mass/Vol] 80.4 mg/dL Normal [facility] Comment on above: Performed By: #### L IPID, FT3, TSH, LIVER, BMP #### [facility] [place] [facility] [address] [address] [address] Sugey Dominguez Cholesterol.total/Chol esterol in HDL [Mass ratio] 3.7 {ratio} Normal [facility] Comment on above: Performed By: #### L IPID, FT3, TSH, LIVER, BMP #### [facility] [place] [facility] [address] [place] [address] Dr. Sugey Dominguez HDL NORMAL > or = 60 mg/dl - LO W CARDIOVASCULAR RISK <40 mg/dl - HIGH CARDIOVASCULAR RISK Normal [facility] Comment on above: Performed By: #### L IPID, FT3, TSH, LIVER, BMP #### [facility] [place] [facility] [address] [place] [address] Dr. Sugey Dominguez LDL CALC NORMAL SEE BELOW Normal [facility] Comment on above: Result Comment: <100 mg/dl OPTIMAL 100 - 129 mg/dl NEAR OR ABOVE OPTIMAL 130 - 159 mg/dl BORDERLINE HIGH 160 - 189 mg/dl HIGH >190 mg/dl VERY HIGH Performed By: #### L IPID, FT3, TSH, LIVER, BMP #### [facility] [place] [facility] [address] [address] [address] Sugey Dominguez Triglyceride [Mass/Vol] 238 mg/dL Critically high <=150 The [facility] [place] Comment on above: Performed By: #### L IPID, FT3, TSH, LIVER, BMP #### [facility] [place] [facility] [address] [address] [address] Sugey Dominguez VLDL CALC 47.6 mg/dL Normal [facility] Comment on above: Performed By: #### L IPID, FT3, TSH, LIVER, BMP #### [facility] [place] [facility] [address] [place] [address] Dr. Sugey Dominguez LIVER PROFILEon 05-01-2022 Albumin [Mass/Vol] 3.8 g/dL Normal 3.4-5.0 [facility] Comment on above: Performed By: #### L IPID, FT3, TSH, LIVER, BMP #### [facility] [place] [facility] [address] [place] [address] Dr. Sugey Dominguez Albumin/Globulin [Mass ratio] 0.9 {ratio} Normal [facility] Comment on above: Performed By: #### L IPID, FT3, TSH, LIVER, BMP #### [facility] [place] [facility] [address] [place] [address] Dr. Sugey Dominguez ALP [Catalytic activity/Vol] 81 U/L Normal 46-116 [facility] Comment on above: Performed By: #### L IPID, FT3, TSH, LIVER, BMP #### [facility] [place] [facility] [address] [place] [address] Dr. Sugey Dominguez ALT [Catalytic activity/Vol] 23 U/L Normal 14-59 [facility] Comment on above: Performed By: #### L IPID, FT3, TSH, LIVER, BMP #### [facility] [place] [facility] [address] [place] [address] Dr. Sugey Dominguez AST [Catalytic activity/Vol] 15 U/L Normal 15-37 [facility] Comment on above: Performed By: #### L IPID, FT3, TSH, LIVER, BMP #### [facility] [place] [facility] [address] [place] [address] Dr. Sugey Dominguez BILI, CONJUGATED 0.2 mg/dL Normal 0.0-0.2 [facility] Comment on above: Performed By: #### L IPID, FT3, TSH, LIVER, BMP #### [facility] [place] [facility] [address] [place] [address] Dr. Sugey Dominguez Bilirubin [Mass/Vol] 0.6 mg/dL Normal 0.2-1.0 [facility] Comment on above: Performed By: #### L IPID, FT3, TSH, LIVER, BMP #### [facility] [place] [facility] [address] [place] [address] Dr. Sugey Dominguez Globulin (S) [Mass/Vol] 4.0 g/dL Normal [facility] Comment on above: Performed By: #### L IPID, FT3, TSH, LIVER, BMP #### [facility] [place] [facility] [address] [place] [address] Dr. Sugey Dominguez Protein [Mass/Vol] 7.8 g/dL Normal 6.4-8.2 [facility] Comment on above: Performed By: #### L IPID, FT3, TSH, LIVER, BMP #### [facility] [place] [facility] [address] [address] [address] Sugey Dominguez MICROALBUMIN, RAND URon 03- mALB <1.3 Normal <=30.0 [facility] Comment on above: Performed By: #### M ALBR #### [facility] [place] [facility] [address] [place] [address] Dr. Sugey Dominguez PROF CHEM 8 (BAS METB)on Anion gap [Moles/Vol] 12.9 mmol/L Normal [facility] Comment on above: Performed By: #### L IPID, FT3, TSH, LIVER, BMP #### [facility] [place] [facility] [address] [place] [address] Dr. Sugey Dominguez Calcium [Mass/Vol] 9.6 mg/dL Normal 8.5-10.1 [facility] Comment on above: Performed By: #### L IPID, FT3, TSH, LIVER, BMP #### [facility] [place] [facility] [address] [address] [address] Sugey Dominguez Chloride [Moles/Vol] 96 mmol/L Critically low 98-107 [facility] [place] Comment on above: Performed By: #### L IPID, FT3, TSH, LIVER, BMP #### [facility] [place] [facility] [address] [place] [address] Dr. Sugey Dominguez CO2 [Moles/Vol] 30.8 mmol/L Normal 21.0-32.0 [facility] Comment on above: Performed By: #### L IPID, FT3, TSH, LIVER, BMP #### [facility] [place] [facility] [address] [address] [address] Sugey Dominguez Creatinine [Mass/Vol] 1.74 mg/dL Critically high 0.55-1.02 [facility] Comment on above: Performed By: #### L IPID, FT3, TSH, LIVER, BMP #### [facility] [place] [facility] [address] [place] [address] Dr. Sugey Dominguez EGFR-AF BARBADIAN 35 mL/min/1.73m2 Critically low >=60 [facility] Comment on above: Performed By: #### L IPID, FT3, TSH, LIVER, BMP #### [facility] [place] [facility] [address] [address] [address] Sugey Dominguez EGFR-NON AF [place] 29 mL/min/1.73m2 Critically low >=60 [facility] Comment on above: Performed By: #### L IPID, FT3, TSH, LIVER, BMP #### [facility] [place] [facility] [address] [place] [address] Dr. Sugey Dominguez Glucose [Mass/Vol] 195 mg/dL Critically high 74-106 T [facility] Comment on above: Performed By: #### L IPID, FT3, TSH, LIVER, BMP #### [facility] [place] [facility] [address] [place] [address] Dr. Sugey Dominguez Potassium [Moles/Vol] 4.7 mmol/L Normal 3.5-5.1 [facility] Comment on above: Performed By: #### L IPID, FT3, TSH, LIVER, BMP #### [facility] [place] [facility] [address] [place] [address] Dr. Sugey Dominguez Sodium [Moles/Vol] 135 mmol/L Critically low 136-145 Th [facility] Comment on above: Performed By: #### L IPID, FT3, TSH, LIVER, BMP #### [facility] [place] [facility] [address] [place] [address] Dr. Sugey Dominguez Urea nitrogen [Mass/Vol] 47.0 mg/dL Critically high 7.0-18.0 [facility] Comment on above: Performed By: #### L IPID, FT3, TSH, LIVER, BMP #### [facility] [place] [facility] [address] [address] [address] Sugey Dominguez Urea nitrogen/Creatinine [Mass ratio] 27.0 mg/mg Normal [facility] [place] Comment on above: Performed By: #### L IPID, FT3, TSH, LIVER, BMP #### [facility] [place] [facility] [address] [address] [address] Sugey oDminguez TSHon 05-01-2022 TSH 4.093 uIU/mL Critically high 0.358-3.740 [facility] Comment on above: Performed By: #### L IPID, FT3, TSH, LIVER, BMP #### [facility] [place] [facility] [address] [address] [address] Sugey Dominguez GLYCOHEMOGLOBIN A1Con 2021 ADA RECOMMENDATION SEE BELOW Normal [facility] Comment on above: Result Comment: ADA RECOMMENDED LIMIT 4.0 - 6.0 ADA THERAPEUTIC TARGET < 7.0 ACTION SUGGESTED > 7.0 Performed By: #### A 1C ####[facility] [place] [address] [place] [address]Dr. Sugey Dominguez Glucose [Mass/Vol] 183 mg/dL Normal [facility] Comment on above: Performed By: #### A 1C ####[facility] [place] [address] [place] [id number] Dominguez HbA1c (Bld) [Mass fraction] 8.0 % Critically high 4.5-6.2 [facility] Comment on above: Performed By: #### A 1C ####[facility] [place] [address] [place] [address]Dr. Sugey Dominguez BASIC METABOLIC PANELon 03-08 Calcium mass conc 9.2 mg/dL Normal 8.6-10.3 [facility] Comment on above: Order Comment: No: D o not add to previous draw Performed By: #### 3 8420 #### [facility] [address] [facility] [place] [address], [facility] Chloride molar conc 96 mmol/L Low 98-107 [facility] Comment on above: Order Comment: No: D o not add to previous draw Performed By: #### 3 5200 #### [facility] [address] [place] [address], [facility] CO2 molar conc 27 mmol/L Normal 21-31 [facility] Comment on above: Order Comment: No: D o not add to previous draw Performed By: #### 3 5200 #### [facility] [address] [place] [address], [place] Creatinine mass conc 0.70 mg/dL Normal 0.60-1.20 [facility] Comment on above: Order Comment: No: D o not add to previous draw Performed By: #### 3 5200 #### [facility] [address] [place] [address], [place] GFR/1.73 sq M predicted among blacks MDRD vol rate/area (S/P/Bld) mL/min/{1.73_m2} Normal >60 [facility] Comment on above: Order Comment: No: D o not add to previous draw Result Comment: Calc ulation may not be valid for patients over 70 years Performed By: #### 3 5200 #### [facility] [address] [place] [address], [facility] GFR/1.73 sq M predicted among non-blacks MDRD vol rate/area (S/P/Bld) mL/min/{1.73_m2} Normal >60 [facility] Comment on above: Order Comment: No: D o not add to previous draw Result Comment: Calc ulation may not be valid for patients over 70 years Performed By: #### 3 5200 #### [facility] [address] [place] [address], [place] Glucose mass conc 210 mg/dL High 70-100 [facility] Comment on above: Order Comment: No: D o not add to previous draw Performed By: #### 3 5200 #### [facility] [address] [place] [address], [place] Potassium molar conc 4.0 mmol/L Normal 3.5-5.1 [facility] Comment on above: Order Comment: No: D o not add to previous draw Performed By: #### 3 5200 #### [facility] [address] [place] [address], [facility] Sodium molar conc 133 mmol/L Low 136-145 [facility] Comment on above: Order Comment: No: D o not add to previous draw Performed By: #### 3 5200 #### [facility] [address] [facility]. [address] Urea nitrogen mass conc 20 mg/dL Normal 7-25 [facility] Comment on above: Order Comment: No: D o not add to previous draw Performed By: #### 3 5200 #### [facility] [address] [facility] [place] [address], [facility] CBC W/DIFFon 03-24-2018 ABS BASOPHILS 0.1 10*3/uL Normal 0.0-0.2 [facility] Comment on above: Order Comment: No: D o not add to previous draw Performed By: #### 3 5200 #### [facility] [address] [facility]. [address] ABS IMM GRANS 0.1 10*3/uL Normal 0.0-0.2 [facility] Comment on above: Order Comment: No: D o not add to previous draw Performed By: #### 3 5200 #### [facility] [address] ABS NEUTROPHILS 4.7 10*3/uL Normal 1.6-7.6 [facility] Comment on above: Order Comment: No: D o not add to previous draw Performed By: #### 3 5200 #### [facility] [address] [place] [address], [facility] Basophils #/vol (Bld) 1.1 % High 0.0-1.0 [facility] Comment on above: Order Comment: No: D o not add to previous draw Performed By: #### 3 5200 #### [facility] [address] [place] [address], [facility] Eosinophils #/vol (Bld) 0.3 10*3/uL Normal 0.0-0.5 [facility] Comment on above: Order Comment: No: D o not add to previous draw Performed By: #### 3 5200 #### [facility] [address] [place] [address], [facility] Eosinophils/100 WBC (Bld) 3.3 % Normal 0.0-6.0 [facility] Comment on above: Order Comment: No: D o not add to previous draw Performed By: #### 3 5200 #### [facility] [address] [facility] [place] [address], [facility] Erythrocyte distribution width Ratio (RBC) 16.2 % High 11.5-15.0 [facility] Comment on above: Order Comment: No: D o not add to previous draw Performed By: #### 3 5200 #### [facility] [address] [address], [facility] Hematocrit Volume Fraction (Bld) 42.5 % Normal 36.0-45.0 [facility] Comment on above: Order Comment: No: D o not add to previous draw Performed By: #### 3 5200 #### [facility] [address] [facility] [place] [place] [address], [facility] Hemoglobin mass conc (Bld) 13.7 g/dL Normal 12.0-15.0 [facility] Comment on above: Order Comment: No: D o not add to previous draw Performed By: #### 3 5200 #### [facility] [address] [place] [id number], [facility] IMMATURE GRANS 0.8 % Normal 0.0-1.0 [facility] Comment on above: Order Comment: No: D o not add to previous draw Performed By: #### 3 5200 #### [facility] [address] [place] [address], [facility] Lymphocytes #/vol (Bld) 1.7 10*3/uL Normal 1.2-4.0 [facility] Comment on above: Order Comment: No: D o not add to previous draw Performed By: #### 3 5200 #### [facility] [address] [place] [address], [facility] Lymphocytes/100 WBC (Bld) 22.1 % Normal 20.0-45.0 [facility] Comment on above: Order Comment: No: D o not add to previous draw Performed By: #### 3 5200 #### [facility] [address] [place] [address], [facility] MCH Entitic mass (RBC) 30.0 pg Normal 27.0-33.0 Th e [facility] Comment on above: Order Comment: No: D o not add to previous draw Performed By: #### 3 5200 #### [facility] [address] [address], [facility] MCHC mass conc (RBC) 32.2 g/dL Normal 32.0-35.0 [facility] Comment on above: Order Comment: No: D o not add to previous draw Performed By: #### 3 5200 #### [facility] [address] [facility] [place] [address], [facility] MCV Entitic volume (RBC) 93.2 fL Normal 82.0-98.0 [facility] Comment on above: Order Comment: No: D o not add to previous draw Performed By: #### 3 5200 #### [facility] [address] [address], [facility] Monocytes #/vol (Bld) 0.7 10*3/uL Normal 0.1-1.0 Th e [facility] Comment on above: Order Comment: No: D o not add to previous draw Performed By: #### 3 5200 #### [facility] [address] [place] [address], [place] MONOS 9.8 % Normal 5.0-12.0 [facility] Comment on above: Order Comment: No: D o not add to previous draw Performed By: #### 3 5200 #### [facility] [address] [place] [address], [place] Neutrophils/100 WBC (Bld) 62.9 % Normal 40.0-72.0 [facility] Comment on above: Order Comment: No: D o not add to previous draw Performed By: #### 3 5200 #### [facility] [address] [place] [address], [facility] Nucleated RBC/100 WBC Ratio (Bld) 0 % Normal 0-0 [facility] Comment on above: Order Comment: No: D o not add to previous draw Performed By: #### 3 5200 #### [facility] [address] [place] [address], [place] PLAT CNT 188 10*3/uL Normal 150-400 [facility] Comment on above: Order Comment: No: D o not add to previous draw Performed By: #### 3 5200 #### [facility] [address] [place] [id number], [facility] RBC #/vol (Bld) 4.56 10*6/uL Normal 3.80-5.00 [facility] Comment on above: Order Comment: No: D o not add to previous draw Performed By: #### 3 5200 #### [facility] [address] [place] [address], [place] WBC #/vol (Bld) 7.48 10*3/uL Normal 4.00-10.60 [facility] Comment on above: Order Comment: No: D o not add to previous draw Performed By: #### 3 5200 #### [facility] [address] [place] [address], [facility] POC GLUCOSE LABon 03-24-2018 Glucose mass conc 241 mg/dL High 70-100 [facility] Comment on above: Performed By: #### 3 5200 #### [facility] [address] [place] [address], [facility] Glucose mass conc 189 mg/dL High 70-100 [facility] Comment on above: Performed By: #### 3 5200 #### [facility] [address] [place] [address], [facility] BASIC METABOLIC PANELon 03-08 Calcium mass conc 9.1 mg/dL Normal 8.6-10.3 [facility] Comment on above: Order Comment: No: D o not add to previous draw Performed By: #### 3 5200 #### [facility] [address] [place] [address], [facility] Chloride molar conc 95 mmol/L Low 98-107 [facility] Comment on above: Order Comment: No: D o not add to previous draw Performed By: #### 3 5200 #### [facility] [address] [address], [facility] CO2 molar conc 32 mmol/L High 21-31 [facility] Comment on above: Order Comment: No: D o not add to previous draw Performed By: #### 3 5200 #### [facility] [address] [place] [address], [facility] Creatinine mass conc 0.71 mg/dL Normal 0.60-1.20 [facility] Comment on above: Order Comment: No: D o not add to previous draw Performed By: #### 3 5200 #### [facility] [address] [place] [address], [facility] GFR/1.73 sq M predicted among blacks MDRD vol rate/area (S/P/Bld) mL/min/{1.73_m2} Normal >60 [facility] Comment on above: Order Comment: No: D o not add to previous draw Result Comment: Calc ulation may not be valid for patients over 70 years Performed By: #### 3 5200 #### [facility] [address] [place] [address], [facility] GFR/1.73 sq M predicted among non-blacks MDRD vol rate/area (S/P/Bld) mL/min/{1.73_m2} Normal >60 [facility] Comment on above: Order Comment: No: D o not add to previous draw Result Comment: Calc ulation may not be valid for patients over 70 years Performed By: #### 3 5200 #### [facility] [address] [place] [address], [facility] Glucose mass conc 189 mg/dL High 70-100 [facility] Comment on above: Order Comment: No: D o not add to previous draw Performed By: #### 3 5200 #### [facility] [address] [place] [address], [facility] Potassium molar conc 3.7 mmol/L Normal 3.5-5.1 [facility] Comment on above: Order Comment: No: D o not add to previous draw Performed By: #### 3 5200 #### [facility] [address] [place] [address], [place] Sodium molar conc 134 mmol/L Low 136-145 [facility] Comment on above: Order Comment: No: D o not add to previous draw Performed By: #### 3 5200 #### [facility] [address] [place] [address], [place] Urea nitrogen mass conc 19 mg/dL Normal 7-25 [facility] Comment on above: Order Comment: No: D o not add to previous draw Performed By: #### 3 5200 #### [facility] [address] [place] [address], [place] CBC COMPLETE BLOOD COUNTon 0 2- Erythrocyte distribution width Ratio (RBC) 16.2 % High 11.5-15.0 [facility] Comment on above: Order Comment: No: D o not add to previous draw Performed By: #### 3 5200 #### [facility] [address] [place] [address], [facility] Hematocrit Volume Fraction (Bld) 42.5 % Normal 36.0-45.0 [facility] Comment on above: Order Comment: No: D o not add to previous draw Performed By: #### 3 5200 #### [facility] [address] [place] [address], [facility] Hemoglobin mass conc (Bld) 13.6 g/dL Normal 12.0-15.0 [facility] Comment on above: Order Comment: No: D o not add to previous draw Performed By: #### 3 5200 #### [facility] [address] [place] [address], [facility] MCH Entitic mass (RBC) 29.9 pg Normal 27.0-33.0 [facility] Comment on above: Order Comment: No: D o not add to previous draw Performed By: #### 3 5200 #### [facility] [address] [place] [address], [facility] MCHC mass conc (RBC) 32.0 g/dL Normal 32.0-35.0 [facility] Comment on above: Order Comment: No: D o not add to previous draw Performed By: #### 3 5200 #### [facility] [address] [place] [address], [facility] MCV Entitic volume (RBC) 93.4 fL Normal 82.0-98.0 [facility] Comment on above: Order Comment: No: D o not add to previous draw Performed By: #### 3 5200 #### [facility] [address] [place] [address], [facility] Nucleated RBC/100 WBC Ratio (Bld) 0 % Normal 0-0 [facility] Comment on above: Order Comment: No: D o not add to previous draw Performed By: #### 3 5200 #### [facility] [address] [place] [address], [place] PLAT CNT 198 10*3/uL Normal 150-400 [facility] Comment on above: Order Comment: No: D o not add to previous draw Performed By: #### 3 5200 #### [facility] [address] [place] [address], [place] RBC #/vol (Bld) 4.55 10*6/uL Normal 3.80-5.00 [facility] Comment on above: Order Comment: No: D o not add to previous draw Performed By: #### 3 5200 #### [facility] [address] [place] [address], [place] WBC #/vol (Bld) 7.49 10*3/uL Normal 4.00-10.60 [facility] Comment on above: Order Comment: No: D o not add to previous draw Performed By: #### 3 5200 #### [facility] [address] [place] [address], [place] POC GLUCOSE LABon 03-23-2018 Glucose mass conc 178 mg/dL High 70-100 [facility] Comment on above: Performed By: #### 3 5200 #### [facility] [address] [place] [address], [place] Glucose mass conc 163 mg/dL High 70-100 [facility] Comment on above: Performed By: #### 3 5200 #### [facility] [address] [place] [address], [place] Glucose mass conc 194 mg/dL High 70-100 [facility] Comment on above: Performed By: #### 3 5200 #### [facility] [address] [place] [address], [place] Glucose mass conc 164 mg/dL High 70-100 [facility] Comment on above: Performed By: #### 3 5200 #### [facility] [address] [place] [address], [place] BASIC METABOLIC PANELon 03-08 Calcium mass conc 9.0 mg/dL Normal 8.6-10.3 [facility] Comment on above: Order Comment: No: D o not add to previous draw Performed By: #### 3 5200 #### [facility] [address] [place] [address], [place] Chloride molar conc 95 mmol/L Low 98-107 [facility] Comment on above: Order Comment: No: D o not add to previous draw Performed By: #### 3 5200 #### [facility] [address] [place] [address], [place] CO2 molar conc 36 mmol/L High 21-31 [facility] Comment on above: Order Comment: No: D o not add to previous draw Performed By: #### 3 5200 #### [facility] [address] [place] [address], [place] Creatinine mass conc 0.61 mg/dL Normal 0.60-1.20 [facility] Comment on above: Order Comment: No: D o not add to previous draw Performed By: #### 3 5200 #### [facility] [address] [place] [address], [place] GFR/1.73 sq M predicted among blacks MDRD vol rate/area (S/P/Bld) mL/min/{1.73_m2} Normal >60 [facility] Comment on above: Order Comment: No: D o not add to previous draw Result Comment: Calc ulation may not be valid for patients over 70 years Performed By: #### 3 5200 #### [facility] [address] [place] [address], [place] GFR/1.73 sq M predicted among non-blacks MDRD vol rate/area (S/P/Bld) mL/min/{1.73_m2} Normal >60 [facility] Comment on above: Order Comment: No: D o not add to previous draw Result Comment: Calc ulation may not be valid for patients over 70 years Performed By: #### 3 5200 #### [facility] [address] [place] [address], [place] Glucose mass conc 152 mg/dL High 70-100 [facility] Comment on above: Order Comment: No: D o not add to previous draw Performed By: #### 3 5200 #### [facility] [address] [place] [address], [facility] Potassium molar conc 3.5 mmol/L Normal 3.5-5.1 [facility] Comment on above: Order Comment: No: D o not add to previous draw Performed By: #### 3 5200 #### [facility] [address] [place] [address], [place] Sodium molar conc 137 mmol/L Normal 136-145 [facility] Comment on above: Order Comment: No: D o not add to previous draw Performed By: #### 3 5200 #### [facility] [address] [place] [address], [facility] Urea nitrogen mass conc 17 mg/dL Normal 7-25 [facility] Comment on above: Order Comment: No: D o not add to previous draw Performed By: #### 3 5200 #### [facility] [address] [place] [address], [facility] CBC COMPLETE BLOOD COUNTon 0 - Erythrocyte distribution width Ratio (RBC) 16.2 % High 11.5-15.0 [facility] Comment on above: Order Comment: No: D o not add to previous draw Performed By: #### 3 5200 #### [facility] [address] [place] [address], [place] Hematocrit Volume Fraction (Bld) 42.6 % Normal 36.0-45.0 [facility] Comment on above: Order Comment: No: D o not add to previous draw Performed By: #### 3 5200 #### [facility] [address] [place] [address], [facility] Hemoglobin mass conc (Bld) 13.4 g/dL Normal 12.0-15.0 [facility] Comment on above: Order Comment: No: D o not add to previous draw Performed By: #### 3 5200 #### [facility] [address] [place] [address], [facility] MCH Entitic mass (RBC) 29.4 pg Normal 27.0-33.0 [facility] Comment on above: Order Comment: No: D o not add to previous draw Performed By: #### 3 5200 #### [facility] [address] [place] [address], [facility] MCHC mass conc (RBC) 31.5 g/dL Low 32.0-35.0 [facility] Comment on above: Order Comment: No: D o not add to previous draw Performed By: #### 3 5200 #### [facility] [address] [place] [address], [facility] MCV Entitic volume (RBC) 93.4 fL Normal 82.0-98.0 [facility] Comment on above: Order Comment: No: D o not add to previous draw Performed By: #### 3 5200 #### [facility] [address] [place] [address], [facility] Nucleated RBC/100 WBC Ratio (Bld) 0 % Normal 0-0 [facility] Comment on above: Order Comment: No: D o not add to previous draw Performed By: #### 3 5200 #### [facility] [address] [place] [address], [facility] PLAT CNT 197 10*3/uL Normal 150-400 [facility] Comment on above: Order Comment: No: D o not add to previous draw Performed By: #### 3 5200 #### [facility] [address] [facility] [place] [address], [facility] RBC #/vol (Bld) 4.56 10*6/uL Normal 3.80-5.00 [facility] Comment on above: Order Comment: No: D o not add to previous draw Performed By: #### 3 5200 #### [facility] [address] [place] [address], [facility] WBC #/vol (Bld) 7.53 10*3/uL Normal 4.00-10.60 [facility] Comment on above: Order Comment: No: D o not add to previous draw Performed By: #### 3 5200 #### [facility] [address] [place] [address], [facility] POC GLUCOSE LABon 03-22-2018 Glucose mass conc 187 mg/dL High 70-100 [facility] Comment on above: Performed By: #### 3 5200 #### [facility] [address] [place] [address], [place] Glucose mass conc 161 mg/dL High 70-100 [facility] Comment on above: Performed By: #### 3 5200 #### [facility] [address] [address], [facility] Glucose mass conc 226 mg/dL High 70-100 [facility] Comment on above: Performed By: #### 3 5200 #### [facility] [address] [place] [address], [place] Glucose mass conc 175 mg/dL High 70-100 [facility] Comment on above: Performed By: #### 3 5200 #### [facility] [address] [place] [address], [place] Glucose mass conc 148 mg/dL High 70-100 [facility] Comment on above: Performed By: #### 3 5200 #### [facility] [address] [place] [address], [place] Glucose mass conc 191 mg/dL High 70-100 [facility] Comment on above: Performed By: #### 5 610, 64558 #### [facility] [address] [place] [address], [place] BASIC METABOLIC PANELon 03-08 Calcium mass conc 9.1 mg/dL Normal 8.6-10.3 [facility] Comment on above: Order Comment: No: D o not add to previous draw Performed By: #### 5 610, 84415 #### [facility] [address] [place] [address], [place] Chloride molar conc 95 mmol/L Low 98-107 [facility] Comment on above: Order Comment: No: D o not add to previous draw Performed By: #### 5 610, 17535 #### [facility] [address] [place] [address], [place] CO2 molar conc 36 mmol/L High 21-31 [facility] Comment on above: Order Comment: No: D o not add to previous draw Performed By: #### 5 610, 62089 #### [facility] [address] [place] [address], [place] Creatinine mass conc 0.68 mg/dL Normal 0.60-1.20 [facility] Comment on above: Order Comment: No: D o not add to previous draw Performed By: #### 5 610, 50311 #### [facility] [address] [place] [address], [place] GFR/1.73 sq M predicted among blacks MDRD vol rate/area (S/P/Bld) mL/min/{1.73_m2} Normal >60 [facility] Comment on above: Order Comment: No: D o not add to previous draw Result Comment: Calc ulation may not be valid for patients over 70 years Performed By: #### 5 610, 39965 #### [facility] [address] [place] [address], [place] GFR/1.73 sq M predicted among non-blacks MDRD vol rate/area (S/P/Bld) mL/min/{1.73_m2} Normal >60 [facility] Comment on above: Order Comment: No: D o not add to previous draw Result Comment: Calc ulation may not be valid for patients over 70 years Performed By: #### 5 610, 57020 #### [facility] [address] [place] [address], [place] Glucose mass conc 147 mg/dL High 70-100 [facility] Comment on above: Order Comment: No: D o not add to previous draw Performed By: #### 5 610, 68043 #### [facility] [address] [place] [address], [place] Potassium molar conc 3.6 mmol/L Normal 3.5-5.1 [facility] Comment on above: Order Comment: No: D o not add to previous draw Performed By: #### 5 610, 82010 #### [facility] [address] [place] [address], [place] Sodium molar conc 139 mmol/L Normal 136-145 [facility] Comment on above: Order Comment: No: D o not add to previous draw Performed By: #### 5 610, 36340 #### [facility] [address] [place] [address], [place] Urea nitrogen mass conc 14 mg/dL Normal 7-25 [facility] Comment on above: Order Comment: No: D o not add to previous draw Performed By: #### 5 610, 44108 #### [facility] [address] [place] [address], [place] CBC COMPLETE BLOOD COUNTon 0 - Erythrocyte distribution width Ratio (RBC) 16.2 % High 11.5-15.0 [facility] Comment on above: Order Comment: No: D o not add to previous draw Performed By: #### 5 610, 40779 #### [facility] [address] [place] [address], [facility] Hematocrit Volume Fraction (Bld) 42.0 % Normal 36.0-45.0 [facility] Comment on above: Order Comment: No: D o not add to previous draw Performed By: #### 5 610, 14148 #### [facility] [address] [place] [address], [facility] Hemoglobin mass conc (Bld) 13.5 g/dL Normal 12.0-15.0 [facility] Comment on above: Order Comment: No: D o not add to previous draw Performed By: #### 5 6100, 71203 #### [facility] [address] [place] [address], [facility] MCH Entitic mass (RBC) 30.0 pg Normal 27.0-33.0 [facility] Comment on above: Order Comment: No: D o not add to previous draw Performed By: #### 5 6100, 55546 #### [facility] [address] [place] [address], [facility] MCHC mass conc (RBC) 32.1 g/dL Normal 32.0-35.0 [facility] Comment on above: Order Comment: No: D o not add to previous draw Performed By: #### 5 610, 11000 #### [facility] [address] [place] [address], [facility] MCV Entitic volume (RBC) 93.3 fL Normal 82.0-98.0 [facility] Comment on above: Order Comment: No: D o not add to previous draw Performed By: #### 5 610, 20380 #### [facility] [address] [place] [address], [facility] Nucleated RBC/100 WBC Ratio (Bld) 0 % Normal 0-0 [facility] Comment on above: Order Comment: No: D o not add to previous draw Performed By: #### 5 610, 25220 #### [facility] [address] [place] [address], [facility] PLAT CNT 196 10*3/uL Normal 150-400 [facility] Comment on above: Order Comment: No: D o not add to previous draw Performed By: #### 5 610, 09990 #### [facility] [address] [place] [address], [facility] RBC #/vol (Bld) 4.50 10*6/uL Normal 3.80-5.00 [facility] Comment on above: Order Comment: No: D o not add to previous draw Performed By: #### 5 610, 95923 #### [facility] [address] [place] [address], [facility] WBC #/vol (Bld) 7.89 10*3/uL Normal 4.00-10.60 [facility] Comment on above: Order Comment: No: D o not add to previous draw Performed By: #### 5 610, 83505 #### [facility] [address] [place] [address], [facility] POC GLUCOSE LABon 03-21-2018 Glucose mass conc 174 mg/dL High 70-100 [facility] Comment on above: Performed By: #### 5 610, 63668 #### [facility] [address] [place] [address], [facility] Glucose mass conc 129 mg/dL High 70-100 [facility] Comment on above: Performed By: #### 5 610, 80917 #### [facility] [address] [place] [address], [facility] Glucose mass conc 280 mg/dL High 70-100 [facility] Comment on above: Performed By: #### 5 610, 09656 #### [facility] [address] [place] [address], [facility] BASIC METABOLIC PANELon 03-08 Calcium mass conc 9.2 mg/dL Normal 8.6-10.3 [facility] Comment on above: Order Comment: No: D o not add to previous draw Performed By: #### 5 610, 75290 #### [facility] [address] [place] [address], [place] Chloride molar conc 96 mmol/L Low 98-107 [facility] Comment on above: Order Comment: No: D o not add to previous draw Performed By: #### 5 610, 93502 #### [facility] [address] [place] [address], [place] CO2 molar conc 33 mmol/L High 21-31 [facility] Comment on above: Order Comment: No: D o not add to previous draw Performed By: #### 5 610, 54909 #### [facility] [address] [place] [address], [place] Creatinine mass conc 0.69 mg/dL Normal 0.60-1.20 [facility] Comment on above: Order Comment: No: D o not add to previous draw Performed By: #### 5 610, 73395 #### [facility] [address] [place] [address], [place] GFR/1.73 sq M predicted among blacks MDRD vol rate/area (S/P/Bld) mL/min/{1.73_m2} Normal >60 [facility] Comment on above: Order Comment: No: D o not add to previous draw Result Comment: Calc ulation may not be valid for patients over 70 years Performed By: #### 5 610, 43397 #### [facility] [address] [place] [address], [place] GFR/1.73 sq M predicted among non-blacks MDRD vol rate/area (S/P/Bld) mL/min/{1.73_m2} Normal >60 [facility] Comment on above: Order Comment: No: D o not add to previous draw Result Comment: Calc ulation may not be valid for patients over 70 years Performed By: #### 5 610, 09940 #### [facility] [address] [place] [address], [place] Glucose mass conc 134 mg/dL High 70-100 [facility] Comment on above: Order Comment: No: D o not add to previous draw Performed By: #### 5 610, 64533 #### [facility] [address] [place] [address], [place] Potassium molar conc 4.1 mmol/L Normal 3.5-5.1 [facility] Comment on above: Order Comment: No: D o not add to previous draw Performed By: #### 5 610, 69485 #### [facility] [address] [place] [address], [place] Sodium molar conc 137 mmol/L Normal 136-145 [facility] Comment on above: Order Comment: No: D o not add to previous draw Performed By: #### 5 610, 60555 #### [facility] [address] [place] [address], [place] Urea nitrogen mass conc 13 mg/dL Normal 7-25 [facility] Comment on above: Order Comment: No: D o not add to previous draw Performed By: #### 5 610, 38279 #### [facility] [address] [place] [address], [place] MAGNESIUM BLOODon 03-20-2018 Magnesium mass conc 1.9 mg/dL Normal 1.9-2.7 [facility] Comment on above: Order Comment: No: D o not add to previous draw Performed By: #### 5 610, 87356 #### [facility] [address] [place] [address], [place] POC GLUCOSE LABon 03-20-2018 Glucose mass conc 109 mg/dL High 70-100 [facility] Comment on above: Performed By: #### 5 610, 50945 #### [facility] [address] [place] [address], [place] Glucose mass conc 194 mg/dL High 70-100 [facility] Comment on above: Performed By: #### 5 610, 85639 #### [facility] [address] [place] [address], [facility] Glucose mass conc 119 mg/dL High 70-100 [facility] Comment on above: Performed By: #### 5 610, 64431 #### [facility] [address] [facility] [place] [address], [facility] Glucose mass conc 203 mg/dL High 70-100 [facility] Comment on above: Performed By: #### 5 610, 93415 #### [facility] [address] [facility]. [address] APTTon 03-19-2018 aPTT Coag time (Bld) 32.1 s Normal 25.0-35.0 [facility] Comment on above: Order Comment: [...] THIS PURPOSE. Performed By: #### 5 610, 76479 #### [facility] [address] [facility]. [address] BASIC METABOLIC PANELon 03-08 Calcium mass conc 9.2 mg/dL Normal 8.6-10.3 [facility] Comment on above: Order Comment: No: D o not add to previous draw Performed By: #### 5 610, 96966 #### [facility] [address] [facility]. [address] Chloride molar conc 95 mmol/L Low 98-107 [facility] Comment on above: Order Comment: No: D o not add to previous draw Performed By: #### 5 610, 18140 #### [facility] [address] [place] [address], [place] CO2 molar conc 34 mmol/L High 21-31 [facility] Comment on above: Order Comment: No: D o not add to previous draw Performed By: #### 5 6101, 34298 #### [facility] [address] [place] [address], [place] Creatinine mass conc 0.55 mg/dL Low 0.60-1.20 [facility] Comment on above: Order Comment: No: D o not add to previous draw Performed By: #### 5 6101, 06867 #### [facility] [address] [place] [address], [place] GFR/1.73 sq M predicted among blacks MDRD vol rate/area (S/P/Bld) mL/min/{1.73_m2} Normal >60 [facility] Comment on above: Order Comment: No: D o not add to previous draw Result Comment: Calc ulation may not be valid for patients over 70 years Performed By: #### 5 6101, 57523 #### [facility] [address] [place] [address], [place] GFR/1.73 sq M predicted among non-blacks MDRD vol rate/area (S/P/Bld) mL/min/{1.73_m2} Normal >60 [facility] Comment on above: Order Comment: No: D o not add to previous draw Result Comment: Calc ulation may not be valid for patients over 70 years Performed By: #### 5 6101, 68167 #### [facility] [address] [place] [address], [place] Glucose mass conc 136 mg/dL High 70-100 [facility] Comment on above: Order Comment: No: D o not add to previous draw Performed By: #### 5 6101, 58012 #### [facility] [address] [place] [address], [place] Potassium molar conc 3.4 mmol/L Low 3.5-5.1 [facility] Comment on above: Order Comment: No: D o not add to previous draw Performed By: #### 5 610, 89149 #### [facility] [address] [facility]. [address] Sodium molar conc 137 mmol/L Normal 136-145 [facility] Comment on above: Order Comment: No: D o not add to previous draw Performed By: #### 5 610, 17376 #### [facility] [address] [facility]. [address] Urea nitrogen mass conc 11 mg/dL Normal 7-25 [facility] Comment on above: Order Comment: No: D o not add to previous draw Performed By: #### 5 610, 34084 #### [facility] [address] [facility]. [address] CBC W/DIFFon 03-19-2018 ABS BASOPHILS 0.1 10*3/uL Normal 0.0-0.2 [facility] Comment on above: Order Comment: No: D o not add to previous draw Performed By: #### 5 610, 36853 #### [facility] [address] [facility]. [address] ABS IMM GRANS 0.1 10*3/uL Normal 0.0-0.2 [facility] Comment on above: Order Comment: No: D o not add to previous draw Performed By: #### 5 610, 99520 #### [facility] [address] [facility]. [address] ABS NEUTROPHILS 6.1 10*3/uL Normal 1.6-7.6 [facility] Comment on above: Order Comment: No: D o not add to previous draw Performed By: #### 5 610, 21432 #### [facility] [address] [facility]. [address] Basophils #/vol (Bld) 0.8 % Normal 0.0-1.0 [facility] Comment on above: Order Comment: No: D o not add to previous draw Performed By: #### 5 610, 33305 #### [facility] [address] [place] [address], [facility] Eosinophils #/vol (Bld) 0.2 10*3/uL Normal 0.0-0.5 [facility] Comment on above: Order Comment: No: D o not add to previous draw Performed By: #### 5 6100, 58740 #### [facility] [address] [place] [address], [facility] Eosinophils/100 WBC (Bld) 1.9 % Normal 0.0-6.0 [facility] Comment on above: Order Comment: No: D o not add to previous draw Performed By: #### 5 6100, 88135 #### [facility] [address] Erythrocyte distribution width Ratio (RBC) 16.4 % High 11.5-15.0 [facility] Comment on above: Order Comment: No: D o not add to previous draw Performed By: #### 5 6100, 46441 #### [facility] [address] [place] [address], [facility] Hematocrit Volume Fraction (Bld) 43.7 % Normal 36.0-45.0 [facility] Comment on above: Order Comment: No: D o not add to previous draw Performed By: #### 5 6100, 66393 #### [facility] [address] [place] [id number], [facility] Hemoglobin mass conc (Bld) 14.0 g/dL Normal 12.0-15.0 [facility] Comment on above: Order Comment: No: D o not add to previous draw Performed By: #### 5 610, 05429 #### [facility] [address] [place] [id number], [facility] IMMATURE GRANS 0.7 % Normal 0.0-1.0 [facility] Comment on above: Order Comment: No: D o not add to previous draw Performed By: #### 5 610, 10294 #### [facility] [address] [place] [address], [facility] Lymphocytes #/vol (Bld) 1.7 10*3/uL Normal 1.2-4.0 [facility] Comment on above: Order Comment: No: D o not add to previous draw Performed By: #### 5 6100, 10938 #### [facility] [address] Lymphocytes/100 WBC (Bld) 19.1 % Low 20.0-45.0 [facility] Comment on above: Order Comment: No: D o not add to previous draw Performed By: #### 5 610, 04964 #### [facility] [address] [facility] [address] MCH Entitic mass (RBC) 29.5 pg Normal 27.0-33.0 Th e [facility] Comment on above: Order Comment: No: D o not add to previous draw Performed By: #### 5 6100, 56463 #### [facility] [address] [facility] [address] MCHC mass conc (RBC) 32.0 g/dL Normal 32.0-35.0 [facility] Comment on above: Order Comment: No: D o not add to previous draw Performed By: #### 5 610, 66590 #### [facility] [address] [facility] [address] MCV Entitic volume (RBC) 92.0 fL Normal 82.0-98.0 [facility] Comment on above: Order Comment: No: D o not add to previous draw Performed By: #### 5 610, 98285 #### [facility] [address] [place] [address], [facility] Monocytes #/vol (Bld) 0.6 10*3/uL Normal 0.1-1.0 [facility] e [facility] Comment on above: Order Comment: No: D o not add to previous draw Performed By: #### 5 610, 38628 #### [facility] [address] [place] [id number], [facility] MONOS 7.0 % Normal 5.0-12.0 [facility] Comment on above: Order Comment: No: D o not add to previous draw Performed By: #### 5 6100, 24699 #### [facility] [address] [place] [address], [facility] Neutrophils/100 WBC (Bld) 70.5 % Normal 40.0-72.0 [facility] Comment on above: Order Comment: No: D o not add to previous draw Performed By: #### 5 6100, 65028 #### [facility] [address] [place] [address], [facility] Nucleated RBC/100 WBC Ratio (Bld) 0 % Normal 0-0 [facility] Comment on above: Order Comment: No: D o not add to previous draw Performed By: #### 5 6100, 56550 #### [facility] [address] [place] [id number], [facility] PLAT CNT 200 10*3/uL Normal 150-400 [facility] Comment on above: Order Comment: No: D o not add to previous draw Performed By: #### 5 6100, 84367 #### [facility] [address] [place] [address], [place] RBC #/vol (Bld) 4.75 10*6/uL Normal 3.80-5.00 [facility] Comment on above: Order Comment: No: D o not add to previous draw Performed By: #### 5 610, 29531 #### [facility] [address] [place] [address], [place] WBC #/vol (Bld) 8.62 10*3/uL Normal 4.00-10.60 [facility] Comment on above: Order Comment: No: D o not add to previous draw Performed By: #### 5 6101, 45313 #### [address] CHEST AND LATERALon 03-19-19 19 CHEST AND LATERAL [facility] Department of Radiology [address] [place] [id number] ======== Patient Name: PERCY KAPLAN : 1945 Sex: F Age: Race: White Pt. Location: [address] [place] [address] Patient Status: I Ordered Date: 03/19/2018 12:15:00 [...] cardiomegaly. Electronically signed by:Franklyn Nicolas. Transcribed by: [email or web address], User Resident: Electronically Signed by: FRANKLYN NICOLAS @ 03/19/2018 08:20 AM Normal [facility] Comment on above: Order Comment: No: D o not add to previous draw COMP METABOLIC PANELon 03-19 Albumin mass conc 3.3 g/dL Low 3.5-5.7 [facility] Comment on above: Order Comment: No: D o not add to previous draw Performed By: #### 5 6101, 06971 #### [facility] [address] [place] [address], [place] ALKALINE PHOSPH 58 IU/L Normal 34-104 [facility] Comment on above: Order Comment: No: D o not add to previous draw Performed By: #### 5 6101, 98785 #### [facility] [address] [place] [address], [place] ALT enzyme act/vol 28 U/L Normal 7-52 [facility] Comment on above: Order Comment: No: D o not add to previous draw Performed By: #### 5 6101, 38207 #### [facility] [address] [place] [address], [place] AST enzyme act/vol 22 U/L Normal 13-39 [facility] Comment on above: Order Comment: No: D o not add to previous draw Performed By: #### 5 6101, 95292 #### [facility] [address] [place] [address], [place] Bilirubin mass conc 1.9 mg/dL High 0.3-1.0 [facility] Comment on above: Order Comment: No: D o not add to previous draw Performed By: #### 5 6101, 68313 #### [facility] [address] [place] [address], [place] Calcium mass conc 9.0 mg/dL Normal 8.6-10.3 [facility] Comment on above: Order Comment: No: D o not add to previous draw Performed By: #### 5 610, 54356 #### [facility] [address] [place] [address], [place] Chloride molar conc 94 mmol/L Low 98-107 [facility] Comment on above: Order Comment: No: D o not add to previous draw Performed By: #### 5 610, 39227 #### [facility] [address] [place] [address], [place] CO2 molar conc 36 mmol/L High 21-31 [facility] Comment on above: Order Comment: No: D o not add to previous draw Performed By: #### 5 610, 76718 #### [facility] [address] [place] [address], [place] Creatinine mass conc 0.61 mg/dL Normal 0.60-1.20 [facility] Comment on above: Order Comment: No: D o not add to previous draw Performed By: #### 5 610, 92135 #### [facility] [address] [place] [address], [place] GFR/1.73 sq M predicted among blacks MDRD vol rate/area (S/P/Bld) mL/min/{1.73_m2} Normal >60 [facility] Comment on above: Order Comment: No: D o not add to previous draw Result Comment: Calc ulation may not be valid for patients over 70 years Performed By: #### 5 610, 74510 #### [facility] [address] [place] [address], [place] GFR/1.73 sq M predicted among non-blacks MDRD vol rate/area (S/P/Bld) mL/min/{1.73_m2} Normal >60 [facility] Comment on above: Order Comment: No: D o not add to previous draw Result Comment: Calc ulation may not be valid for patients over 70 years Performed By: #### 5 610, 45233 #### [facility] [address] [place] [address], [place] Glucose mass conc 210 mg/dL High 70-100 [facility] Comment on above: Order Comment: No: D o not add to previous draw Performed By: #### 5 6101, 53615 #### [facility] [address] [place] [address], [place] Potassium molar conc 3.3 mmol/L Low 3.5-5.1 [facility] Comment on above: Order Comment: No: D o not add to previous draw Performed By: #### 5 6101, 28415 #### [facility] [address] [place] [address], [place] Protein mass conc 6.3 g/dL Normal 6.0-8.3 [facility] Comment on above: Order Comment: No: D o not add to previous draw Performed By: #### 5 6101, 32282 #### [facility] [address] [place] [address], [place] Sodium molar conc 137 mmol/L Normal 136-145 [facility] Comment on above: Order Comment: No: D o not add to previous draw Performed By: #### 5 6101, 83283 #### [facility] [address] [place] [address], [place] Urea nitrogen mass conc 11 mg/dL Normal 7-25 [facility] Comment on above: Order Comment: No: D o not add to previous draw Performed By: #### 5 6101, 49447 #### [facility] [address] [place] [address], [place] History and Physicalon 03-19 History and Physical MR#: [id number] [facility] Pt. 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 She was admitted to [facility] [place] where she was found to be in [...] stenosis during her last hospitalization here at [facility] earlier this month. There was a discussion with Cardiology service about aortic valve replacement, whether to have TAVR versus open heart surgery and that decision has not been made yet. She was supposed to follow up with our Cardiology service next week. Transfer was initiated from [place] for further evaluation from our Cardiology service and also due to concern at [place] whether she needed urgent valve replacement done [...] alert and oriented x3. LAB STUDIES: From [facility] [place], March 18, 2018. CBC; WBC 7.4, hemoglobin 12.7, hematocrit 39.2, platelet count 174. BMP: Sodium 142, potassium 3.3, chloride 101, bicarb 34.7, BUN 12, creatinine 0.71, calcium 8.5, glucose 93. The patient had BNP of 16,271 on March 16, 2018, when she initially presented. It appears that cardiac enzymes are negative. Chest x-ray is reported to be showing pulmonary edema from [place], but no images were sent over with [...] A Jaguar John MD Date Dict: 03/19/2018/12:11 Kike John MD Date Trans: 03/19/2018 01:05 Dena/jerri [id number] Normal [facility] MAGNESIUM BLOODon 03-19-2018 Magnesium mass conc 1.8 mg/dL Low 1.9-2.7 [facility] Comment on above: Order Comment: Yes: Add to Previous draw if able Performed By: #### 3 5200, 15071, 79006, 53372 #### [facility] [address] [place] [address], [facility] POC GLUCOSE LABon 03-19-2018 Glucose mass conc 260 mg/dL High 70-100 [facility] Comment on above: Performed By: #### 5 6101, 52721 #### [facility] [address] [place] [address], [facility] Glucose mass conc 200 mg/dL High 70-100 [facility] Comment on above: Performed By: #### 5 6101, 78617 #### [facility] [address] [place] [address], [facility] Glucose mass conc 130 mg/dL High 70-100 [facility] Comment on above: Performed By: #### 3 5200, 90561, 00303, 82542 #### [facility] [address] [place] [address], [facility] Glucose mass conc 112 mg/dL High 70-100 [facility] Comment on above: Performed By: #### 3 5200, 57101, 61824, 30646 #### [facility] [address] [place] [address], [facility] PROTHROMBIN TIMEon 9 INR Coag RelTime (PPP) 1.19 {INR} High 0.91-1.16 Th e [facility] Comment on above: Order Comment: [...] CHEST 1995;[id number]. Performed By: #### 5 6101, 79418 #### [facility] [address] Prothrombin time (PT) Coag time (PPP) 15.1 s High 12.3-14.8 [facility] Comment on above: Order Comment: No: D o not add to previous draw Result Comment: ALL RESULTS MUST BE INTERPRETED WITH RESPECT TO BLOOD DRAWING ARTIFACT OR DILUTION ERROR OF ANTICOAGULANT AT THE TIME OF SAMPLING. Performed By: #### 5 6101, 06029 #### [facility] [address] APTTon 03-13-2018 aPTT Coag time (Bld) 52.4 s High 25.0-35.0 [facility] Comment on above: Order Comment: [...] OF HEPARIN. Performed By: #### 3 5200, 16020, 50355, 32144 #### [facility] [address] [place] [address], [facility] aPTT Coag time (Bld) 56.9 s High 25.0-35.0 [facility] Comment on above: Order Comment: [...] OF HEPARIN. Performed By: #### 3 5200, 59247, 69298, 25233 #### [facility] [address] aPTT Coag time (Bld) 53.6 s High 25.0-35.0 [facility] Comment on above: Order Comment: [...] OF HEPARIN. Performed By: #### 3 5200, 74627, 75577, 10115 #### [facility] [address] [place] [address], [facility] POC GLUCOSE LABon 03-13-2018 Glucose mass conc 140 mg/dL High 70-100 [facility] Comment on above: Performed By: #### 3 5200, 62107, 69416, 58040 #### [facility] [address] [place] [address], [facility] Glucose mass conc 189 mg/dL High 70-100 [facility] Comment on above: Performed By: #### 3 5200, 39331, 20680, 69398 #### [facility] [address] [place] [address], [place] Glucose mass conc 156 mg/dL High 70-100 [facility] Comment on above: Performed By: #### 3 5200, 77302, 81590, 85672 #### [facility] [address] [place] [address], [facility] UFH HEPARIN ASSAYon 03-13-19 19 UNFRACTIONATED HEPARIN 0.14 IU/mL Critically low 0.30-0.70 [facility] Comment on above: Order Comment: Yes: Add to Previous draw if able Result Comment: [place] roxaban and Apixaban will interfere with the anti Xa assay used to monitor UFH and LMWH. Results called. Accurately read back by PEGGY ISAACS [id number] Performed By: #### 3 5200, 35267, 73979, 68143 #### [facility] [address] [place] [address], [facility] UNFRACTIONATED HEPARIN 0.18 IU/mL Low 0.30-0.70 [facility] e [facility] Comment on above: Order Comment: Yes: Add to Previous draw if able Result Comment: [place] roxaban and Apixaban will interfere with the anti Xa assay used to monitor UFH and LMWH. Performed By: #### 3 5200, 88651, 03963, 40389 #### [facility] [address] [place] [address], [place] UNFRACTIONATED HEPARIN 0.18 IU/mL Low 0.30-0.70 [facility] e [facility] Comment on above: Result Comment: [place] roxaban and Apixaban will interfere with the anti Xa assay used to monitor UFH and LMWH. ADDED PER PROTOCOL. Performed By: #### 3 5200, 27294, 43446, 39522 #### [facility] [address] [place] [address], [facility] APTTon 03-12-2018 aPTT Coag time (Bld) 49.2 s High 25.0-35.0 [facility] Comment on above: Order Comment: [...] THIS PURPOSE. Performed By: #### 3 5200, 07602, 89358, 92156 #### [facility] [address] [place] [address], [facility] aPTT Coag time (Bld) 59.2 s High 25.0-35.0 [facility] Comment on above: Order Comment: [...] OF HEPARIN. Performed By: #### 3 5200, 51451, 72789, 00392 #### [facility] [address] [facility] [place] [address], [facility] aPTT Coag time (Bld) 43.7 s High 25.0-35.0 [facility] Comment on above: Order Comment: [...] THIS PURPOSE. Performed By: #### 3 5200, 69322, 50585, 39859 #### [facility] [address] [place] [address], [facility] BASIC METABOLIC PANELon 02-0 Calcium mass conc 8.9 mg/dL Normal 8.6-10.3 [facility] Comment on above: Order Comment: Yes: Add to Previous draw if able Performed By: #### 3 5200, 94739, 38375, 45823 #### [facility] [address] [place] [address], [facility] Chloride molar conc 100 mmol/L Normal 98-107 [facility] Comment on above: Order Comment: Yes: Add to Previous draw if able Performed By: #### 3 5200, 31233, 39496, 90044 #### [facility] [address] [place] [address], [facility] CO2 molar conc 28 mmol/L Normal 21-31 [facility] Comment on above: Order Comment: Yes: Add to Previous draw if able Performed By: #### 3 5200, 40797, 56072, 00975 #### [facility] [address] [place] [address], [facility] Creatinine mass conc 0.50 mg/dL Low 0.60-1.20 [facility] Comment on above: Order Comment: Yes: Add to Previous draw if able Performed By: #### 3 5200, 14991, 34601, 57229 #### [facility] [address] [place] [address], [place] GFR/1.73 sq M predicted among blacks MDRD vol rate/area (S/P/Bld) mL/min/{1.73_m2} Normal >60 [facility] Comment on above: Order Comment: Yes: Add to Previous draw if able Result Comment: Calc ulation may not be valid for patients over 70 years Performed By: #### 3 5200, 37238, 44478, 00928 #### [facility] [address] [place] [address], [place] GFR/1.73 sq M predicted among non-blacks MDRD vol rate/area (S/P/Bld) mL/min/{1.73_m2} Normal >60 [facility] Comment on above: Order Comment: Yes: Add to Previous draw if able Result Comment: Calc ulation may not be valid for patients over 70 years Performed By: #### 3 5200, 43155, 20788, 14389 #### [facility] [address] [place] [address], [facility] Glucose mass conc 132 mg/dL High 70-100 [facility] Comment on above: Order Comment: Yes: Add to Previous draw if able Performed By: #### 3 5200, 50722, 30040, 76319 #### [facility] [address] [place] [address], [facility] Potassium molar conc 3.6 mmol/L Normal 3.5-5.1 [facility] Comment on above: Order Comment: Yes: Add to Previous draw if able Performed By: #### 3 5200, 03513, 91665, 93031 #### [facility] [address] [place] [address], [facility] Sodium molar conc 137 mmol/L Normal 136-145 [facility] Comment on above: Order Comment: Yes: Add to Previous draw if able Performed By: #### 3 5200, 75006, 82156, 01134 #### [facility] [address] [place] [address], [facility] Urea nitrogen mass conc 10 mg/dL Normal 7-25 [facility] Comment on above: Order Comment: Yes: Add to Previous draw if able Performed By: #### 3 5200, 97063, 12892, 01971 #### [facility] [address] [place] [id number], [facility] CBC COMPLETE BLOOD COUNTon 0 2- Erythrocyte distribution width Ratio (RBC) 16.1 % High 11.5-15.0 [facility] Comment on above: Order Comment: Yes: Add to Previous draw if able Performed By: #### 3 5200, 36265, 84627, 18309 #### [facility] [address] [place] [address], [facility] Hematocrit Volume Fraction (Bld) 39.3 % Normal 36.0-45.0 [facility] Comment on above: Order Comment: Yes: Add to Previous draw if able Performed By: #### 3 5200, 77018, 21660, 45683 #### [facility] [address] [place] [address], [facility] Hemoglobin mass conc (Bld) 12.4 g/dL Normal 12.0-15.0 [facility] Comment on above: Order Comment: Yes: Add to Previous draw if able Performed By: #### 3 5200, 76387, 11200, 55372 #### [facility] [address] MCH Entitic mass (RBC) 29.7 pg Normal 27.0-33.0 [facility] Comment on above: Order Comment: Yes: Add to Previous draw if able Performed By: #### 3 5200, 24969, 59401, 59135 #### [facility] [address] [place] [address], [facility] MCHC mass conc (RBC) 31.6 g/dL Low 32.0-35.0 [facility] Comment on above: Order Comment: Yes: Add to Previous draw if able Performed By: #### 3 5200, 77348, 00713, 69109 #### [facility] [address] [place] [address], [facility] MCV Entitic volume (RBC) 94.0 fL Normal 82.0-98.0 [facility] Comment on above: Order Comment: Yes: Add to Previous draw if able Performed By: #### 3 5200, 67085, 86222, 62279 #### [facility] [address] [place] [address], [facility] Nucleated RBC/100 WBC Ratio (Bld) 0 % Normal 0-0 [facility] Comment on above: Order Comment: Yes: Add to Previous draw if able Performed By: #### 3 5200, 58907, 84338, 48927 #### [facility] [address] [place] [id number], [facility] PLAT CNT 185 10*3/uL Normal 150-400 [facility] Comment on above: Order Comment: Yes: Add to Previous draw if able Performed By: #### 3 5200, 64535, 86304, 84288 #### [facility] [address] [place] [address], [facility] RBC #/vol (Bld) 4.18 10*6/uL Normal 3.80-5.00 [facility] Comment on above: Order Comment: Yes: Add to Previous draw if able Performed By: #### 3 5200, 32711, 30047, 12586 #### [facility] [address] [place] [address], [facility] WBC #/vol (Bld) 6.85 10*3/uL Normal 4.00-10.60 [facility] Comment on above: Order Comment: Yes: Add to Previous draw if able Performed By: #### 3 5200, 12231, 78105, 24859 #### [facility] [address] [place] [address], [facility] POC GLUCOSE LABon 03-12-2018 Glucose mass conc 135 mg/dL High 70-100 [facility] Comment on above: Performed By: #### 3 5200, 05128, 89872, 71107 #### [facility] [address] [place] [address], [facility] Glucose mass conc 188 mg/dL High 70-100 [facility] Comment on above: Performed By: #### 3 5200, 31078, 95476, 16940 #### [facility] [address] [place] [id number], [facility] Glucose mass conc 130 mg/dL High 70-100 [facility] Comment on above: Performed By: #### 3 5200, 65695, 43310, 85115 #### [facility] [address] [place] [address], [facility] Glucose mass conc 139 mg/dL High 70-100 [facility] Comment on above: Performed By: #### 3 5200, 81448, 05460, 84073 #### [facility] [address] UFH HEPARIN ASSAYon 03-12-19 19 UNFRACTIONATED HEPARIN 0.30 IU/mL Normal 0.30-0.70 [facility] Comment on above: Order Comment: Yes: Add to Previous draw if able Result Comment: [place] roxaban and Apixaban will interfere with the anti Xa assay used to monitor UFH and LMWH. Performed By: #### 3 5200, 66058, 33425, 80280 #### [facility] [address] APTTon 03-11-2018 aPTT Coag time (Bld) 88.3 s Critically high 25.0-35.0 [facility] Comment on above: Order Comment: [...] OF HEPARIN. Performed By: #### 3 5200, 78619, 93682, 67193 #### [facility] [address] [place] [address], [facility] aPTT Coag time (Bld) 50.4 s High 25.0-35.0 [facility] Comment on above: Order Comment: [...] THIS PURPOSE. Performed By: #### 3 5200, 76201, 19491, 49315 #### [facility] [address] [place] [address], [facility] BASIC METABOLIC PANELon 02-0 Calcium mass conc 8.9 mg/dL Normal 8.6-10.3 [facility] Comment on above: Order Comment: No: D o not add to previous draw Performed By: #### 3 5200, 75870, 61891, 14332 #### [facility] [address] [place] [address], [facility] Chloride molar conc 101 mmol/L Normal 98-107 [facility] Comment on above: Order Comment: No: D o not add to previous draw Performed By: #### 3 5200, 03317, 28226, 44257 #### [facility] [address] [place] [address], [facility] CO2 molar conc 29 mmol/L Normal 21-31 [facility] Comment on above: Order Comment: No: D o not add to previous draw Performed By: #### 3 5200, 14352, 86930, 55712 #### [facility] [address] [place] [address], [place] Creatinine mass conc 0.55 mg/dL Low 0.60-1.20 [facility] Comment on above: Order Comment: No: D o not add to previous draw Performed By: #### 3 5200, 24938, 82443, 20469 #### [facility] [address] [place] [address], [place] GFR/1.73 sq M predicted among blacks MDRD vol rate/area (S/P/Bld) mL/min/{1.73_m2} Normal >60 [facility] Comment on above: Order Comment: No: D o not add to previous draw Result Comment: Calc ulation may not be valid for patients over 70 years Performed By: #### 3 5200, 46324, 89661, 51137 #### [facility] [address] [place] [address], [place] GFR/1.73 sq M predicted among non-blacks MDRD vol rate/area (S/P/Bld) mL/min/{1.73_m2} Normal >60 [facility] Comment on above: Order Comment: No: D o not add to previous draw Result Comment: Calc ulation may not be valid for patients over 70 years Performed By: #### 3 5200, 97352, 91613, 65397 #### [facility] [address] [place] [address], [place] Glucose mass conc 152 mg/dL High 70-100 [facility] Comment on above: Order Comment: No: D o not add to previous draw Performed By: #### 3 5200, 46448, 55874, 01780 #### [facility] [address] [place] [address], [place] Potassium molar conc 3.7 mmol/L Normal 3.5-5.1 [facility] Comment on above: Order Comment: No: D o not add to previous draw Performed By: #### 3 5200, 84102, 06347, 42240 #### [facility] [address] [place] [address], [place] Sodium molar conc 138 mmol/L Normal 136-145 [facility] Comment on above: Order Comment: No: D o not add to previous draw Performed By: #### 3 5200, 35916, 81131, 05012 #### [facility] [address] [place] [address], [place] Urea nitrogen mass conc 12 mg/dL Normal 7-25 [facility] Comment on above: Order Comment: No: D o not add to previous draw Performed By: #### 3 5200, 63436, 27910, 67390 #### [facility] [address] CBC W/DIFFon 03-11-2018 ABS BASOPHILS 0.1 10*3/uL Normal 0.0-0.2 [facility] Comment on above: Order Comment: No: D o not add to previous draw Performed By: #### 3 5200, 41734, 67406, 44105 #### [facility] [address] ABS IMM GRANS 0.0 10*3/uL Normal 0.0-0.2 [facility] Comment on above: Order Comment: No: D o not add to previous draw Performed By: #### 3 5200, 16864, 87462, 28125 #### [facility] [address] ABS NEUTROPHILS 4.7 10*3/uL Normal 1.6-7.6 [facility] Comment on above: Order Comment: No: D o not add to previous draw Performed By: #### 3 5200, 28284, 20217, 29417 #### [facility] [address] Basophils #/vol (Bld) 0.9 % Normal 0.0-1.0 [facility] Comment on above: Order Comment: No: D o not add to previous draw Performed By: #### 3 5200, 71297, 56103, 34525 #### [facility] [address] Eosinophils #/vol (Bld) 0.2 10*3/uL Normal 0.0-0.5 [facility] Comment on above: Order Comment: No: D o not add to previous draw Performed By: #### 3 5200, 24792, 04335, 48620 #### [facility] [address] [place] [address], [facility] Eosinophils/100 WBC (Bld) 2.4 % Normal 0.0-6.0 [facility] Comment on above: Order Comment: No: D o not add to previous draw Performed By: #### 3 5200, 12244, 88483, 17798 #### [facility] [address] Erythrocyte distribution width Ratio (RBC) 16.1 % High 11.5-15.0 [facility] Comment on above: Order Comment: No: D o not add to previous draw Performed By: #### 3 5200, 72277, 73762, 76120 #### [facility] [address] Hematocrit Volume Fraction (Bld) 38.7 % Normal 36.0-45.0 [facility] Comment on above: Order Comment: No: D o not add to previous draw Performed By: #### 3 5200, 81421, 96399, 15843 #### [facility] [address] Hemoglobin mass conc (Bld) 12.5 g/dL Normal 12.0-15.0 [facility] Comment on above: Order Comment: No: D o not add to previous draw Performed By: #### 3 5200, 50603, 46011, 33194 #### [facility] [address] [place] [address], [facility] IMMATURE GRANS 0.6 % Normal 0.0-1.0 [facility] Comment on above: Order Comment: No: D o not add to previous draw Performed By: #### 3 5200, 58647, 57183, 27591 #### [facility] [address] [place] [address], [facility] Lymphocytes #/vol (Bld) 1.3 10*3/uL Normal 1.2-4.0 [facility] Comment on above: Order Comment: No: D o not add to previous draw Performed By: #### 3 5200, 91281, 39886, 10643 #### [facility] [address] Lymphocytes/100 WBC (Bld) 18.6 % Low 20.0-45.0 [facility] Comment on above: Order Comment: No: D o not add to previous draw Performed By: #### 3 5200, 38548, 11223, 08842 #### [facility] [address] MCH Entitic mass (RBC) 29.9 pg Normal 27.0-33.0 [facility] Comment on above: Order Comment: No: D o not add to previous draw Performed By: #### 3 5200, 51302, 04415, 73110 #### [facility] [address] MCHC mass conc (RBC) 32.3 g/dL Normal 32.0-35.0 [facility] Comment on above: Order Comment: No: D o not add to previous draw Performed By: #### 3 5200, 01469, 03166, 84377 #### [facility] [address] MCV Entitic volume (RBC) 92.6 fL Normal 82.0-98.0 [facility] Comment on above: Order Comment: No: D o not add to previous draw Performed By: #### 3 5200, 25978, 77175, 99057 #### [facility] [address] [facility] [place] [address], [facility] Monocytes #/vol (Bld) 0.5 10*3/uL Normal 0.1-1.0 [facility] Comment on above: Order Comment: No: D o not add to previous draw Performed By: #### 3 5200, 54442, 28297, 06966 #### [facility] [address] [facility] [place] [address], [facility] MONOS 7.0 % Normal 5.0-12.0 [facility] Comment on above: Order Comment: No: D o not add to previous draw Performed By: #### 3 5200, 99647, 29307, 78470 #### [facility] [address] [place] [address], [facility] Neutrophils/100 WBC (Bld) 70.5 % Normal 40.0-72.0 [facility] Comment on above: Order Comment: No: D o not add to previous draw Performed By: #### 3 5200, 29366, 49098, 67391 #### [facility] [address] [facility] [place] [address], [facility] Nucleated RBC/100 WBC Ratio (Bld) 0 % Normal 0-0 [facility] Comment on above: Order Comment: No: D o not add to previous draw Performed By: #### 3 5200, 29226, 71938, 84092 #### [facility] [address] [facility] [place] [place] [address], [facility] PLAT CNT 189 10*3/uL Normal 150-400 [facility] Comment on above: Order Comment: No: D o not add to previous draw Performed By: #### 3 5200, 78685, 33256, 49023 #### [facility] [address] [facility] [place] [address], [facility] RBC #/vol (Bld) 4.18 10*6/uL Normal 3.80-5.00 [facility] Comment on above: Order Comment: No: D o not add to previous draw Performed By: #### 3 5200, 56127, 95716, 82861 #### [facility] [address] [place] [address], [facility] WBC #/vol (Bld) 6.71 10*3/uL Normal 4.00-10.60 [facility] Comment on above: Order Comment: No: D o not add to previous draw Performed By: #### 3 5200, 99464, 22005, 82779 #### [facility] [address] [place] [address], [facility] POC GLUCOSE LABon 03-11-2018 Glucose mass conc 128 mg/dL High 70-100 [facility] Comment on above: Performed By: #### 3 5200, 93208, 69275, 44439 #### [facility] [address] [place] [address], [facility] Glucose mass conc 100 mg/dL Normal 70-100 [facility] Comment on above: Performed By: #### 3 5200, 30091, 56795, 49544 #### [facility] [address] [place] [address], [facility] Glucose mass conc 158 mg/dL High 70-100 [facility] Comment on above: Performed By: #### 3 5200, 36305, 01288, 96547 #### [facility] [address] [place] [address], [facility] UFH HEPARIN ASSAYon 03-11-19 19 UNFRACTIONATED HEPARIN 0.35 IU/mL Normal 0.30-0.70 [facility] Comment on above: Order Comment: [...] OF HEPARIN. Performed By: #### 3 5200, 59528, 82032, 73865 #### [facility] [address] [place] [address], [facility] UNFRACTIONATED HEPARIN 0.28 IU/mL Low 0.30-0.70 [facility] Comment on above: Result Comment: [place] roxaban and Apixaban will interfere with the anti Xa assay used to monitor UFH and LMWH. Performed By: #### 3 5200, 57632, 61641, 27415 #### [facility] [address] [place] [address], [facility] APTTon 03-10-2018 aPTT Coag time (Bld) 53.0 s High 25.0-35.0 [facility] Comment on above: Order Comment: [...] OF HEPARIN. Performed By: #### 3 5200, 48249, 47302, 29357 #### [facility] [address] [facility] [place] [address], [facility] aPTT Coag time (Bld) 47.7 s High 25.0-35.0 [facility] Comment on above: Order Comment: [...] THIS PURPOSE. Performed By: #### 3 5200, 17931, 18931, 51322 #### [facility] [address] [place] [address], [facility] aPTT Coag time (Bld) 68.2 s High 25.0-35.0 [facility] Comment on above: Order Comment: [...] THIS PURPOSE. Performed By: #### 3 5200, 08050, 60701, 03040 #### [facility] [address] [place] [address], [facility] BASIC METABOLIC PANELon 02-0 Calcium mass conc 8.7 mg/dL Normal 8.6-10.3 [facility] Comment on above: Order Comment: No: D o not add to previous draw Performed By: #### 3 5200, 43556, 47857, 38433 #### [facility] [address] [place] [address], [facility] Chloride molar conc 100 mmol/L Normal 98-107 [facility] Comment on above: Order Comment: No: D o not add to previous draw Performed By: #### 3 5200, 55414, 01158, 42556 #### [facility] [address] [place] [address], [facility] CO2 molar conc 28 mmol/L Normal 21-31 [facility] Comment on above: Order Comment: No: D o not add to previous draw Performed By: #### 3 5200, 28983, 66561, 87823 #### [facility] [address] [place] [address], [facility] Creatinine mass conc 0.57 mg/dL Low 0.60-1.20 [facility] Comment on above: Order Comment: No: D o not add to previous draw Performed By: #### 3 5200, 02409, 77626, 48745 #### [facility] [address] [place] [address], [facility] GFR/1.73 sq M predicted among blacks MDRD vol rate/area (S/P/Bld) mL/min/{1.73_m2} Normal >60 [facility] Comment on above: Order Comment: No: D o not add to previous draw Result Comment: Calc ulation may not be valid for patients over 70 years Performed By: #### 3 5200, 08944, 05811, 10154 #### [facility] [address] [place] [address], [place] GFR/1.73 sq M predicted among non-blacks MDRD vol rate/area (S/P/Bld) mL/min/{1.73_m2} Normal >60 [facility] Comment on above: Order Comment: No: D o not add to previous draw Result Comment: Calc ulation may not be valid for patients over 70 years Performed By: #### 3 5200, 69116, 03175, 96888 #### [facility] [address] [place] [address], [place] Glucose mass conc 141 mg/dL High 70-100 [facility] Comment on above: Order Comment: No: D o not add to previous draw Performed By: #### 3 5200, 19082, 39350, 63144 #### [facility] [address] [place] [address], [place] Potassium molar conc 4.0 mmol/L Normal 3.5-5.1 [facility] Comment on above: Order Comment: No: D o not add to previous draw Performed By: #### 3 5200, 77037, 62297, 26314 #### [facility] [address] [place] [address], [place] Sodium molar conc 136 mmol/L Normal 136-145 [facility] Comment on above: Order Comment: No: D o not add to previous draw Performed By: #### 3 5200, 98173, 39398, 87760 #### [facility] [address] [place] [address], [place] Urea nitrogen mass conc 12 mg/dL Normal 7-25 [facility] Comment on above: Order Comment: No: D o not add to previous draw Performed By: #### 3 5200, 62246, 54976, 45614 #### [facility] [address] [place] [address], [place] CBC COMPLETE BLOOD COUNTon 0 - Erythrocyte distribution width Ratio (RBC) 16.1 % High 11.5-15.0 [facility] Comment on above: Order Comment: No: D o not add to previous draw Performed By: #### 3 5200, 89572, 12036, 81494 #### [facility] [address] [place] [address], [facility] Hematocrit Volume Fraction (Bld) 39.4 % Normal 36.0-45.0 [facility] Comment on above: Order Comment: No: D o not add to previous draw Performed By: #### 3 5200, 12308, 25654, 47004 #### [facility] [address] [place] [address], [facility] Hemoglobin mass conc (Bld) 12.9 g/dL Normal 12.0-15.0 [facility] Comment on above: Order Comment: No: D o not add to previous draw Performed By: #### 3 5200, 34626, 16098, 65066 #### [facility] [address] [place] [address], [place] [facility]CH Entitic mass (RBC) 30.0 pg Normal 27.0-33.0 [facility] Comment on above: Order Comment: No: D o not add to previous draw Performed By: #### 3 5200, 20888, 04507, 84095 #### [facility] [address] [place] [address], [facility] MCHC mass conc (RBC) 32.7 g/dL Normal 32.0-35.0 [facility] Comment on above: Order Comment: No: D o not add to previous draw Performed By: #### 3 5200, 76749, 35664, 99455 #### [facility] [address] [place] [address], [place] MCV Entitic volume (RBC) 91.6 fL Normal 82.0-98.0 [facility] Comment on above: Order Comment: No: D o not add to previous draw Performed By: #### 3 5200, 99866, 81083, 60576 #### [facility] [address] Nucleated RBC/100 WBC Ratio (Bld) 0 % Normal 0-0 [facility] Comment on above: Order Comment: No: D o not add to previous draw Performed By: #### 3 5200, 17692, 81789, 41273 #### [facility] [address] [place] [address], [facility] PLAT CNT 200 10*3/uL Normal 150-400 [facility] Comment on above: Order Comment: No: D o not add to previous draw Performed By: #### 3 5200, 60245, 86928, 72534 #### [facility] [address] [facility] [address] RBC #/vol (Bld) 4.30 10*6/uL Normal 3.80-5.00 [facility] Comment on above: Order Comment: No: D o not add to previous draw Performed By: #### 3 5200, 96784, 62764, 90834 #### [facility] [address] WBC #/vol (Bld) 7.21 10*3/uL Normal 4.00-10.60 [facility] Comment on above: Order Comment: No: D o not add to previous draw Performed By: #### 3 5200, 69144, 63599, 47280 #### [facility] [address] UFH HEPARIN ASSAYon 03-10-19 19 UNFRACTIONATED HEPARIN 0.33 IU/mL Normal 0.30-0.70 Th e [facility] Comment on above: Result Comment: [place] roxaban and Apixaban will interfere with the anti Xa assay used to monitor UFH and LMWH. UFH ADDED PER PROTOCOL Performed By: #### 3 5200, 23284, 95087, 68909 #### [facility] [address] UNFRACTIONATED HEPARIN 0.89 IU/mL High 0.30-0.70 Th e [facility] Comment on above: Order Comment: No: D o not add to previous draw Result Comment: [place] roxaban and Apixaban will interfere with the anti Xa assay used to monitor UFH and LMWH. Performed By: #### 3 5200, 65833, 68412, 03764 #### [facility] [address] [place] [address], [facility] APTTon 03-09-2018 aPTT Coag time (Bld) 67.5 s High 25.0-35.0 [facility] Comment on above: Order Comment: [...] By: #### 8 5123 #### [facility] [address] [place] [address], [facility] aPTT Coag time (Bld) 58.4 s High 25.0-35.0 [facility] Comment on above: Order Comment: [...] By: #### 8 5123 #### [facility] [address] [place] [address], [facility] aPTT Coag time (Bld) 89.8 s Critically high 25.0-35.0 [facility] Comment on above: Order Comment: [...] By: #### 8 5123 #### [facility] [address] [facility]. [address] aPTT Coag time (Bld) 80.2 s Critically high 25.0-35.0 [facility] Comment on above: Order Comment: [...] By: #### 8 5123 #### [facility] [address] [facility] [place] [address], [facility] aPTT Coag time (Bld) 47.3 s High 25.0-35.0 [facility] Comment on above: Order Comment: [...] THIS PURPOSE. Performed By: #### 5 6101, 13745 #### [facility] [address] [facility] [address] BNP (B-TYPE NATRIURETIC PEPT ISSA)on 03-09-2018 Natriuretic peptide B mass conc (Bld) 596 pg/mL High 0-100 [facility] Comment on above: Order Comment: Yes: Add to Previous draw if able Result Comment: Give n the appropriate clinical setting a BNP result of >100 pg/mL indicates congestive heart failure. Performed By: #### 8 5123 #### [facility] [address] [place] [address], [facility] CBC COMPLETE BLOOD COUNTon 0 - Erythrocyte distribution width Ratio (RBC) 16.1 % High 11.5-15.0 [facility] Comment on above: Order Comment: Yes: Add to Previous draw if able Performed By: #### 8 5123 #### [facility] [address] [place] [address], [facility] Hematocrit Volume Fraction (Bld) 42.2 % Normal 36.0-45.0 [facility] Comment on above: Order Comment: Yes: Add to Previous draw if able Performed By: #### 8 5123 #### [facility] [address] [place] [address], [facility] Hemoglobin mass conc (Bld) 13.7 g/dL Normal 12.0-15.0 [facility] Comment on above: Order Comment: Yes: Add to Previous draw if able Performed By: #### 8 5123 #### [facility] [address] [place] [address], [facility] MCH Entitic mass (RBC) 30.0 pg Normal 27.0-33.0 Th e [facility] Comment on above: Order Comment: Yes: Add to Previous draw if able Performed By: #### 8 5123 #### [facility] [address] [place] [address], [facility] MCHC mass conc (RBC) 32.5 g/dL Normal 32.0-35.0 [facility] Comment on above: Order Comment: Yes: Add to Previous draw if able Performed By: #### 8 5123 #### [facility] [address] [place] [address], [facility] MCV Entitic volume (RBC) 92.5 fL Normal 82.0-98.0 [facility] Comment on above: Order Comment: Yes: Add to Previous draw if able Performed By: #### 8 5123 #### [facility] [address] Nucleated RBC/100 WBC Ratio (Bld) 0 % Normal 0-0 [facility] Comment on above: Order Comment: Yes: Add to Previous draw if able Performed By: #### 8 5123 #### [facility] [address] [place] [address], [facility] PLAT CNT 208 10*3/uL Normal 150-400 [facility] Comment on above: Order Comment: Yes: Add to Previous draw if able Performed By: #### 8 5123 #### [facility] [address] [place] [address], [facility] RBC #/vol (Bld) 4.56 10*6/uL Normal 3.80-5.00 [facility] Comment on above: Order Comment: Yes: Add to Previous draw if able Performed By: #### 8 5123 #### [facility] [address] [place] [address], [facility] WBC #/vol (Bld) 9.26 10*3/uL Normal 4.00-10.60 [facility] Comment on above: Order Comment: Yes: Add to Previous draw if able Performed By: #### 8 5123 #### [facility] [address] Erythrocyte distribution width Ratio (RBC) 15.9 % High 11.5-15.0 [facility] Comment on above: Order Comment: Yes: Add to Previous draw if able Performed By: #### 5 0608 #### [facility] [address] [place] [address], [facility] Hematocrit Volume Fraction (Bld) 38.2 % Normal 36.0-45.0 [facility] Comment on above: Order Comment: Yes: Add to Previous draw if able Performed By: #### 5 0608 #### [facility] [address] [place] [address], [facility] Hemoglobin mass conc (Bld) 12.4 g/dL Normal 12.0-15.0 [facility] Comment on above: Order Comment: Yes: Add to Previous draw if able Performed By: #### 5 0608 #### [facility] [address] [place] [address], [facility] MCH Entitic mass (RBC) 29.5 pg Normal 27.0-33.0 Th e [facility] Comment on above: Order Comment: Yes: Add to Previous draw if able Performed By: #### 5 0608 #### [facility] [address] [facility] [address] MCHC mass conc (RBC) 32.5 g/dL Normal 32.0-35.0 [facility] Comment on above: Order Comment: Yes: Add to Previous draw if able Performed By: #### 5 0608 #### [facility] [address] [facility] [address] MCV Entitic volume (RBC) 91.0 fL Normal 82.0-98.0 [facility] Comment on above: Order Comment: Yes: Add to Previous draw if able Performed By: #### 5 0608 #### [facility] [address] [facility] [place] [place] [address], [facility] Nucleated RBC/100 WBC Ratio (Bld) 0 % Normal 0-0 [facility] Comment on above: Order Comment: Yes: Add to Previous draw if able Performed By: #### 5 0608 #### [facility] [address] [facility] [place] [address], [facility] PLAT CNT 193 10*3/uL Normal 150-400 [facility] Comment on above: Order Comment: Yes: Add to Previous draw if able Performed By: #### 5 0608 #### [facility] [address] [place] [address], [facility] RBC #/vol (Bld) 4.20 10*6/uL Normal 3.80-5.00 [facility] Comment on above: Order Comment: Yes: Add to Previous draw if able Performed By: #### 5 0608 #### [facility] [address] [place] [id number], [facility] WBC #/vol (Bld) 8.57 10*3/uL Normal 4.00-10.60 [facility] Comment on above: Order Comment: Yes: Add to Previous draw if able Performed By: #### 5 0608 #### [facility] [address] [facility] [place] [address], [facility] ELECTROLYTE PANELon 03-09-19 19 Chloride molar conc 98 mmol/L Normal 98-107 [facility] Comment on above: Order Comment: Yes: Add to Previous draw if able Performed By: #### 3 5200, 22751, 35919, 88551 #### [facility] [address] [place] [address], [facility] CO2 molar conc 26 mmol/L Normal 21-31 [facility] Comment on above: Order Comment: Yes: Add to Previous draw if able Performed By: #### 3 5200, 04906, 85576, 30467 #### [facility] [address] [place] [address], [facility] Potassium molar conc 4.0 mmol/L Normal 3.5-5.1 [facility] Comment on above: Order Comment: Yes: Add to Previous draw if able Performed By: #### 3 5200, 21783, 12593, 11553 #### [facility] [address] [place] [address], [place] Sodium molar conc 135 mmol/L Low 136-145 [facility] Comment on above: Order Comment: Yes: Add to Previous draw if able Performed By: #### 3 5200, 40178, 60611, 11059 #### [facility] [address] [place] [address], [facility] MAGNESIUM BLOODon 03-09-2018 Magnesium mass conc 1.2 mg/dL Low 1.9-2.7 [facility] Comment on above: Order Comment: Yes: Add to Previous draw if able Performed By: #### 3 5200, 68877, 70208, 53740 #### [facility] [address] [place] [address], [facility] PORTABLE CHEST 1 VIEWon PORTABLE CHEST 1 VIEW [facility] Department of Radiology [address] [place] [id number] ======== Patient Name: PERCY KAPLAN : 1945 Sex: F Age: Race: White Pt. Location: [id number] Patient Status: I Ordered Date: 03/09/2018 2:15:00 [...] findings. Electronically signed by:Peña Díaz. Transcribed by: [email or web address], User Resident: BETH MILTON Electronically Signed by: PEÑA DÍAZ @ 03/09/2018 01:31 PM I personally read this/these film(s) with this resident Normal [facility] Comment on above: Order Comment: Yes: Add to Previous draw if able PROTHROMBIN TIMEon 9 INR Coag RelTime (PPP) 1.78 {INR} High 0.91-1.16 Th e [facility] Comment on above: Result Comment: ACCC [...] 1995;108:231S-246S. Performed By: #### 8 5123 #### [place] [address] Prothrombin time (PT) Coag time (PPP) 20.8 s High 12.3-14.8 [facility] Comment on above: Result Comment: ALL RESULTS MUST BE INTERPRETED WITH RESPECT TO BLOOD DRAWING ARTIFACT OR DILUTION ERROR OF ANTICOAGULANT AT THE TIME OF SAMPLING. Performed By: #### 8 5123 #### [facility] [address] INR Coag RelTime (PPP) 2.82 {INR} High 0.91-1.16 Th e [facility] Comment on above: Order Comment: [...] CHEST 1995;108:231S-246S. Performed By: #### 5 6101, 16374 #### [facility] [address] Prothrombin time (PT) Coag time (PPP) 29.9 s High 12.3-14.8 [facility] Comment on above: Order Comment: No: D o not add to previous draw Result Comment: ALL RESULTS MUST BE INTERPRETED WITH RESPECT TO BLOOD DRAWING ARTIFACT OR DILUTION ERROR OF ANTICOAGULANT AT THE TIME OF SAMPLING. Performed By: #### 5 6101, 17787 #### [facility] [address] [place] [address], [facility] TROPONIN-Ion 03-09-2018 Troponin I.cardiac mass conc 0.01 ng/mL Normal 0.00-0.04 [facility] Comment on above: Order Comment: No: D o not add to previous draw Result Comment: REFE RENCE RANGES: 0.00 - 0.04 ng/ml NORMAL 0.05 - 0.50 ng/ml INDETERMINATE > 0.50 ng/ml CONSISTENT WITH AN M.I. Performed By: #### 3 5200 #### [facility] [address] [place] [address], [facility] Troponin I.cardiac mass conc 0.01 ng/mL Normal 0.00-0.04 [facility] Comment on above: Order Comment: No: D o not add to previous draw Result Comment: REFE RENCE RANGES: 0.00 - 0.04 ng/ml NORMAL 0.05 - 0.50 ng/ml INDETERMINATE > 0.50 ng/ml CONSISTENT WITH AN M.I. Performed By: #### 3 5200 #### [facility] [address] [place] [address], [facility] Troponin I.cardiac mass conc 0.01 ng/mL Normal 0.00-0.04 [facility] Comment on above: Order Comment: No: D o not add to previous draw Result Comment: REFE RENCE RANGES: 0.00 - 0.04 ng/ml NORMAL 0.05 - 0.50 ng/ml INDETERMINATE > 0.50 ng/ml CONSISTENT WITH AN M.I. Performed By: #### 3 5200, 93186, 78219, 40644 #### [facility] [address] [facility] [place] [place] [address], [facility] TSH3on 03-09-2018 TSH 3RD GENERATION 3.21 uIU/mL Normal 0.34-5.60 [facility] Comment on above: Order Comment: Yes: Add to Previous draw if able Performed By: #### 3 5200, 16839, 18672, 77309 #### [facility] [address] [facility]. [address] UFH HEPARIN ASSAYon 03-09-19 19 UNFRACTIONATED HEPARIN >1.00 Critically high 0.30-0.7 0 [facility] Comment on above: Result Comment: [place] roxaban and Apixaban will interfere with the anti Xa assay used to monitor UFH and LMWH. Performed By: #### 8 5123 #### [facility] [address] UNFRACTIONATED HEPARIN >1.00 Critically high 0.30-0.7 0 [facility] Comment on above: Order Comment: Yes: Add to Previous draw if able Result Comment: [place] roxaban and Apixaban will interfere with the anti Xa assay used to monitor UFH and LMWH. UFH = 2.28. UFH MAY BE ELEVATED IN THE PRESENCE OF OTHER ANTI-XA INHIBITORS. Performed By: #### 8 5123 #### [facility] [address] UNFRACTIONATED HEPARIN >1.00 Critically high 0.30-0.7 0 [facility] Comment on above: Result Comment: Kathy [...] By: #### 8 5123 #### [facility] [address] Vital Signs Date Time Vital Sign Value Performing Clinician Leigh weiss 10-27-2022 12:14-0400 Diastolic blood pressure 53 mm[Hg] MD Gumaro Ordonez Work Phone: [facility] 10-27-2022 12:14-0400 Heart rate 73 /min MD Gumaro Ordonez Work Phone: [facility] 10-27-2022 12:14-0400 Respiratory rate 18 /min MD Gumaro Ordonez Work Phone: [facility] 10-27-2022 12:14-0400 SaO2% (BldA) [Mass fraction] 95 % MD Gumaro Ordonez Work Phone: [facility] 10-27-2022 12:14-0400 Systolic blood pressure 128 mm[Hg] MD Gumaro Ordonez Work Phone: [facility] 10-27-2022 10:54-0400 Body height 160.02 cm MD Gumaro Ordonez Work Phone: [facility] 10-27-2022 10:54-0400 Body weight 122.46 kg MD Gumaro Ordonez Work Phone: [facility] Encounters Encounter Date Encounter Type Care Provider Facility Start: 04-30-2023 End: 04-30-2023 ambulatory GUMARO ORDONEZ Not Available Start: 04-12-2023 End: 04-12-2023 ambulatory [facility] Start: 03-29-2023 ambulatory [facility] Start: 03-28-2023 End: 03-29-2023 ambulatory [facility] Start: 03-28-2023 ambulatory [facility] Start: 03-27-2023 Evaluation and management of inpatient [facility] Start: 03-27-2023 End: 03-28-2023 ambulatory [facility] Start: 03-19-2023 End: 03-19-2023 ambulatory [facility] Start: 02-27-2023 ambulatory [facility] Start: 02-27-2023 ambulatory [facility] Start: 02-27-2023 End: 03-29-2023 Evaluation and management of inpatient [facility] Start: 01-12-2023 End: 01-12-2023 ambulatory [facility] Start: 12-04-2022 End: 12-04-2022 ambulatory Joe Cosme Facility:[facility] Start: 12-04-2022 End: 12-04-2022 ambulatory MD Gumaro Ordonez Work Phone: [facility] Work Phone: Start: 12-04-2022 End: 12-04-2022 Patient encounter procedure MD Gumaro Ordonez Work Phone: [facility] Work Phone: Start: 11-14-2022 End: 11-14-[address] [facility] Start: 10-27-2022 End: 10-27-2022 ambulatory Joe Cosme Facility:[facility] Start: 10-27-2022 End: 10-27-2022 Admission to same day surgery center MD Gumaro Ordonez Work Phone: [facility] Work Phone: Start: 10-18-2022 End: 10-18-[address] [facility] Start: 10-12-2022 ambulatory Mikey NIELSON Facility:[facility] Start: 10-11-2022 End: 10-15-2022 ambulatory Mikey NIELSON Facility:[id number] Start: 09-22-2022 End: 09-22-2022 ambulatory [facility] Start: 07-17-2022 End: 07-17-[address] [facility] Start: 05-01-2022 End: 05-02-[address] GUMARO ORDONEZ Facility:[facility] Start: 03-22-2022 End: 03-23-[address] GUMARO ORDONEZ Facility:[facility] Start: 10-31-2021 End: 11-01-[address] GUMARO ORDONEZ Facility:[facility] Start: 09-28-2021 End: 09-29-2021 ambulatory ROSA ROSA Facility:[facility] Start: 03-18-2018 End: 03-24-2018 Evaluation and management of inpatient DAVID GABRIEL Facility:[facility] Start: 03-09-2018 End: 03-13-2018 Evaluation and management of inpatient STEPHANIE CARBALLO Facility:[facility] Procedures Date Procedure Procedure Detail Performing Clinician Start: 12-04-2022 Capsule endoscopy MD Gumaro Ordonez Work Phone: Start: 10-27-2022 Esophagogastroduodenoscopy MD Gumaro Jiang er Work Phone: Start: 03-12-2018 [facility], Single MOSHRIK ABD ALAMIR [...] Date Care Activity Detail Author Start: 12-04-2022 [facility] Start: 10-27-2022 [facility] Patient Education Colon polyps H emorrhoids (DC) Diverticulosis (DC) Hiatal Hernia (DC) [facility] Work Phone: Payers Date Payer Category Payer Medicare [id number] 2022 Self-pay 1958 Medicare [id number] 1945 Unknown [id number] 2.16.8 [id number] 1945 Unknown [id number] 2.16.8 [id number] 1945 Unknown [id number] 2.16.84 [id number] 1945 Unknown [id number] 2.16.84 [id number] 1945 Unknown [id number] 2.16.84 [id number] 1945 Unknown [id number] 2.16.84 [id number] 1945 Unknown [id number] 2.16.8 [id number] 1945 Unknown [id number] 2.16.84 [id number] Unknown [id number] Unknown Carmen BC/BS [id number] Unknown [id number] 2.16.8 [id number] Unknown [id number] 2.16.8 [id number] Social History Date Type Detail Facility Start: 10-27-2022 Tobacco smoking stat us NHIS Never smoked tobacco (finding) [facility] Start: 1945 Sex Assigned At Female F [facility] Goals Date Patient Goal Desired Activity /State [...] All other systems reviewed and are negative. [facility] 04-12-2023 Note OR Cardiology - [facility] Subjective Percy Kaplan is a [...] status post TAVR in May 2018 at [facility]. This was using a 23 mm [...] She had a discussion with her primary title i instructional assistant Dr. Burnett and they agreed that left [...] dry. Neurological: Ge (more content not included)... [facility] 03-29-2023 Note Discharge Order in faisal guzmán; AVS sent to [facility] via [facility] 03-28-2023 Note She is doing very we [...] were reviewed with Dr. ABHIJEET Miller from [place] [facility] cardiovascular operating room nurse who is one of the experts in left atrial appendage closure using the amulet device and PI of the main Amulet ISSA trial. In addition the images were also reviewed with Dr. Jw Pierre from [place] who is an inspector printed circuit boards and an expert in left atrial appendage [...] the signed recommendation from Dr ABHIJEET Miller: [facility] 03-28-2023 Note [facility] CARDIOLOGY INPAT IENT [...] and appears to (more content not included)... [facility] 03-28-2023 Note ([phone]) PC to Jagjit; Jagjit confirmed Patient is active with them for wound care, [facility] not providing any therapies. [facility] added to AVS OTM following: - planning discharge to home with [facility] resuming wound care services [facility] 03-27-2023 Note 03/27/23 1061 Admission Assessment Questions Verify insurance with patient [...] No Does the patient have a case advocate assigned to them through their insurance? No [...] MyChart? No (poor internet service in area) [facility] 03-27-2023 Note Patient: Percy salazar Procedure Information Date/Time: 03/27/23829 Procedure: Left atrial appendage closure (transvenous) Location: [facility] FORMING TUBE SELECTOR 3 / [facility] (Cath) Providers: Jolene Carr MD Clinical information reviewed: Allergies Meds OB Status Physical Exam Airway Mallampati: III TM distance: >3 FB Neck ROM: full Cardiovascular Rhythm: regular Rate: normal Dental Pulmonary Abdominal Anesthesia Plan ASA 3 (Conscious sedation) Anesthetic plan and risks discussed with patient. Use of blood products discussed with patient who. Plan discussed with attending. Additional Equipment Requests [facility] 03-19-2023 Note OR Cardiology - [facility] Subjective Percy Kaplan is a [...] status post TAVR in May 2018 at [facility]. This was using a 23 mm [...] She had a discussion with her primary title i instructional assistant Dr. Burnett and they agreed that left [...] 02/12/2023 129 Potassium (more content not included)... [facility] 02-27-2023 Note ------ Attestation signed by [...] No hemodynamic complications noted. Rochelle Diane MD Bi Analyst - PGY5 [facility] 02-27-2023 Note Patient: Percy salazar Procedure Information Date/Time: 02/27/23 1015 Procedure: Cardioversion/defibrillation Location: [facility] FORMING TUBE SELECTOR HOLDING ROOM / [facility] VASCULAR LAB (Cath) Providers: Jolene Carr MD Clinical information reviewed: Allergies Meds OB Status Physical Exam Airway Mallampati: III TM distance: >3 FB Neck ROM: full Cardiovascular Rhythm: regular Rate: normal Dental Pulmonary Abdominal Anesthesia Plan Additional Equipment Requests [facility] 01-12-2023 Note OR Cardiology - [facility] Subjective Percy Kaplan is a [...] status post TAVR in May 2018 at [facility]. This was using a 23 mm [...] She had a discussion with her primary title i instructional assistant Dr. Burnett and they agreed that left [...] Rfl: coenzyme Q-10 (more content not included)... [facility] 11-29-2022 Note I called and spoke t o patient. Explained the LAAO procedure, pre/post-procedure imaging, post-procedure medications, risks and benefits. She would like to proceed with the procedure. She is pending a video capsule study. Please schedule her for an appt with Dr. Carr for further discussion. [facility] 11-14-2022 Note UTP CARDIOLOGY PROGR ESS [...] and she p (more content not included)... [facility] 11-14-2022 Note Patient here [place]. She underwent upper and lower scopes at [facility]. Per patient, Dr. Cosme cleared her to resume Xarelto, but she has not done so yet. She wanted to discuss with Dr. Burnett first. Still denies chest pain, SOB, palpitations, and bleeding. Patient expressed interest in the Watchman/Amulet device. Review of Systems Musculoskeletal: Positive for muscle weakness. All other systems reviewed and are negative. [facility] 10-18-2022 Note UTP CARDIOLOGY PROGR ESS [...] daily weights, I (more content not included)... [facility] 10-18-2022 Note Patient here for fol low up [facility] discharge for GI bleed. She takes Xarelto for afib, but this was stopped, along with aspirin. Chest tightness and SOB has resolved and she's feeling much better. Doing more walking throughout her house. Denies lightheadedness and falls. Review of Systems Musculoskeletal: Positive for muscle weakness. All other systems reviewed and are negative. [facility] 10-11-2022 Note i [facility] 09-22-2022 Note OR Cardiology - [facility] Subjective Percy Kaplan is a [...] status post TAVR in May 2018 at [facility]. This was using a 23 mm [...] , Rfl: Recent (more content not included)... [facility] 07-17-2022 Note Patient here for 6 m o follow up PAF, aortic valve disorder, CHF, carotid artery stenosis, and hypertension. She had echo in Feb 2022 at [facility]. Denies chest pain, SOB, palpitations, and bleeding on Eliquis. Had routine labs in April 2022. Review of Systems Respiratory: Positive for cough. Musculoskeletal: Positive for arthritis, back pain, joint pain, muscle weakness and myalgias. Neurological: Positive for loss of balance. All other systems reviewed and are negative. [facility] 07-17-2022 Note UTP CARDIOLOGY PROGR ESS [...] provided. Patient verbal (more content not included)... [facility] 03-22-2022 Note PROCEDURE: XR ANKLE LT [...] authenticated by: FABRICIO BANKS Date: 2022-03-22 10:42 [facility] 09-29-2021 Note PROCEDURE: XR ANKLE LT MIN [...] authenticated by: GENE BERMUDEZ Date: 2021-09-29 10:11 [facility] Evaluation note No assessment information [facility] Phone: Summary Purpose Family History No Family History Records Found Relationship Condition Age at Onset Recorded Date/T oliver Not Specified Malignant neoplasm of pancreas Unknown father Malignant neoplasm of kidney Unknown Malignant neoplasm of liver Unknown Advance Directives No Advanced Directives Records Found Advance Directive Response Recorded Date/ Time Advance Directives No October 10:12am Hospital Course Note MR#: [id number] [facility] Pt. Name: Percy Kaplan Admitted: 03/09/2018 Discharged: [...] (more content not included)... Note MR#: [id number] [facility] Pt. Name: Percy Kaplan Admitted: 03/18/2018 Discharged: [...] was no chest pain. She went to [facility], was found to have elevated BNP. She [...] and content) DATE CREATED AUTHOR 03/26/2018 [facility] DATE CREATED AUTHOR AUTHOR'S ORGANIZ ATION 05/10/2022 [facility] DATE CREATED AUTHOR AUTHOR'S ORGANIZ ATION 11/08/2022 [place] [facility] DATE CREATED AUTHOR AUTHOR'S ORGANIZ ATION 01/17/2023 [facility] DATE CREATED AUTHOR AUTHOR'S ORGANIZ ATION 04/26/2023 [facility] DATE CREATED AUTHOR AUTHOR'S ORGANIZ ATION 04/30/2023 [facility] [employer] Care Teams (unrecognized sec tion and content) [...] BE BASED ON THE PRIMARY CLINICAL RECORDS. [employer] provides no warranty or guarantee of the accuracy or completeness of information in this document.
== END 2023-05-02 09:12 | disposition home or self-care (01) ==
LOC: EC 09:11
PROVIDERS: PCP Family Medicine; Visit Provider Podiatrist Foot & Ankle Surgery
DX: M25.572 Pain in left ankle and joints of left foot (principal); M79.672 Pain in left foot; Z98.890 Other specified postprocedural states; M85.872 Other specified disorders of bone density and structure, left ankle and foot
CPT/HCPCS: 73610; 73630